=== PATIENT | male | born 1940 | race Caucasian/White ===

== ENCOUNTER 2024-05-04 16:08 | Outpatient (OUT) | payer MEDICARE, SELFPAY ==
--- NOTE | 2024-05-04 16:23 | XR_ITS ---
[facility] [place] [id number] Patient Name: VALENCIA MAGANA MRN: [id number] date: 1940 Sex: M Assigned Patient Location: [facility] Current Patient Location: ED.MAIN Accession/Order Number: [id number] Exam Date: 05/04/2024 16:30 Report Date: 05/04/2024 17:19 At the request of: LARRY LIND Procedure: XR abdomen min 2V EXAM: XR abdomen min 2V REASON FOR EXAM: Male, 83 years, GENERALIZED ABDOMINAL PAIN R10.84. TECHNIQUE: Supine and upright views of the abdomen and pelvis are performed. COMPARISON: None. FINDINGS: The lung bases are clear. There is gaseous distention of large and small bowel. Small bowel diameter measures up to 3.9 cm in diameter. There is a moderate amount of stool within the right and transverse colon. There is no demonstrated free abdominal air. The visualized liver, spleen, and kidneys are grossly normal in size and morphology. Normal soft tissue structures. Normal osseous structures. XR/XR abdomen min 2V IMPRESSION: There is gaseous distention of large and small bowel, suggesting generalized ileus. Moderate stool throughout the colon. Electronically authenticated by: EMMETT CHINCHILLA Date: 05/04/2024 17:19
== END 2024-05-04 16:09 | disposition home or self-care (01) ==
PROVIDERS: Family Provider Physician Assistant; PCP Internal Medicine; Visit Provider Nurse Practitioner Family
DX: R10.84 Generalized abdominal pain (principal); K59.04 Chronic idiopathic constipation
CPT/HCPCS: 74019

== ENCOUNTER 2024-05-04 16:53 | Emergency (ER) | payer MEDICARE, SELFPAY ==
[2024-05-04 17:10] VITALS: BP 108/63; PULSE 103; TEMP 36.9; O2SAT 95; BMI 26.6
--- NOTE | 2024-05-04 17:24 | CT_ITS ---
[address] [address] Patient Name: VALENCIA MAGANA MRN: [id number] date: 1940 Sex: M Assigned Patient Location: ED.MAIN Current Patient Location: Accession/Order Number: [id number] Exam Date: 05/04/2024 19:15 Report Date: 05/04/2024 20:20 At the request of: SARBJIT MONTALVO Procedure: CT abdomen pelvis w con EXAM: CT abdomen pelvis w con REASON FOR EXAM: Male, 83 years, possible SBO. TECHNIQUE: Computed tomography of the abdomen and pelvis is performed in the axial projection from the lung bases to the pubic symphysis. Sagittal and coronal reconstructed images are performed. Dose reduction techniques were achieved by using automated exposure control and/or adjustment of mA and/or KVP according to patient size and/or use of iterative reconstruction technique. A total of 100 mL of Omnipaque 300 IV contrast was given. Study was performed without oral contrast. COMPARISON: Plain films, same date FINDINGS: Lung bases: The lung bases are clear. There is no pleural effusion. Coronary artery calcifications are partially imaged. Liver: There is mild intrahepatic biliary ductal dilation. Gallbladder: The gallbladder is distended. There is gallbladder wall thickening and pericholecystic fluid. The common duct measures 1 cm in diameter. Small gallstones are present. Spleen: The spleen is normal. Pancreas: There is diffuse pancreatic atrophy. Adrenal glands: The adrenal glands are normal bilaterally. Right kidney: The kidney is normal in size. There is a cyst at the superior pole of the right kidney measuring 3.3 cm. Additional smaller cysts are noted. There are punctate nonobstructing renal calculi. No hydronephrosis. Left kidney: The kidney is normal in size. There are punctate nonobstructing renal calculi. Stomach: The stomach is under distended, limiting evaluation for wall abnormalities. Small bowel: The small bowel is normal. Large bowel: There is a moderate amount of stool within the right and transverse colon. There are diverticula in the left colon, without acute diverticulitis. The cecum is directed medially. Appendix: The appendix is not visualized. No right lower quadrant inflammatory changes are seen to suggest acute appendicitis. Aorta: There are diffuse atherosclerotic calcifications of the abdominal aorta. IVC: The IVC is normal. Retroperitoneum: Normal retroperitoneum. Bladder: The bladder is normal. Pelvic organs: Normal prostate gland. Abdominal wall: Normal abdominal wall. Osseous structures: Degenerative changes are seen in the visualized spine. CT/CT abdomen pelvis w con IMPRESSION: Findings are consistent with acute cholecystitis. Diverticulosis, without acute diverticulitis. No bowel obstruction or hydronephrosis. Additional nonacute findings, as described above. Electronically authenticated by: EMMETT CHINCHILLA Date: 05/04/2024 20:20
[2024-05-04] MEDS: ONDANSETRON PF 4 MG/2 ML VIAL IV (17:41)
[2024-05-04] MEDS: MORPHINE SULFATE 4 MG/ML VIAL IV ×2 (17:42→20:13)
[2024-05-04 18:06] LABS: Hematocrit 34.2 % (42.0-54.0); Hemoglobin 10.6 g/dL (14.0-18.0); Mean Corpuscular Hemoglobin 23.4 pg (25.9-34.0); Mean Corpuscular Volume 75.5 fL (80.0-94.0); Platelet Count 157 10^3/uL (150-450); Red Blood Count 4.53 10^6/uL (4.70-6.10); Red Cell Distribution Width 17.8 % (11.0-15.0); White Blood Count 19.4 10^3/uL (4.0-11.0)
[2024-05-04 18:30] LABS: Alanine Aminotransferase 14 U/L (16-63); Albumin Level 3.8 g/dL (3.4-5.0); Alkaline Phosphatase 90 U/L (46-116); Anion Gap 14.1; Aspartate Amino Transferase 12 U/L (15-37); BUN Creatinine Ratio 15.4; Bilirubin Total 1.6 mg/dL (0.2-1.0); Carbon Dioxide 27.9 mmol/L (21.0-32.0); Chloride 99 mmol/L (98-107); Estimated GFR (African America >60 (>=60 mL/min/1.73m^2); Estimated GFR (Non-African Ame >60 (>=60 mL/min/1.73m^2); Globulin 3.7 g/dL; Glucose 147 mg/dL (74-106); Sodium 137 mmol/L (136-145); Total Protein 7.5 g/dL (6.4-8.2)
[2024-05-04 18:36] LABS: Band Neutrophils Absolute 1.2 10^3/uL (0.0-0.3); Lymphocytes Absolute Manual 0.77 10^3/uL (1.20-3.80); Monocytes Absolute Manual 1.94 10^3/uL (0.30-0.80); Ovalocytes 1+; Segmented Neut Absolute Manual 15.52 10^3/uL (1.4-6.5)
--- NOTE | 2024-05-04 18:38 | ED.ABDPAIN1 ---
HPI - Abdominal Pain General Chief Complaint: Abdominal Pain Stated Complaint: abdomen pain Time Seen by Provider: 05/04/24 17:07 Source: patient History of Present Illness HPI narrative: 83-year-old male to the emergency department chief complaint of lower abdominal pain. Started over the last 24 hours. Cramping in nature. It has been unrelenting for the last few hours. He saw his doctor today and an x-ray was ordered. X-ray was reviewed in the outpatient setting was concerning for obstruction so he was sent to the emergency department for evaluation. He reports a small bowel movement yesterday. No bowel movement today. He has not passed any gas today. No history of intra-abdominal surgeries. He has no major medical problems per his report. No blood thinners or antiplatelet agents. Related Data Allergies Allergy/AdvReac Type Severity Reaction Status Date / Time naproxen Allergy Mild swelling Verified 05/04/24 17:21 Penicillins Allergy Mild Rash Verified 05/04/24 17:21 Review of Systems ROS Status of ROS 10 or more systems reviewed and unremarkable except as noted in history and below PFSH PFSH Social History Little interest or pleasure in doing things: not at all Feeling down, depressed, or hopeless: not at all Exam Narrative Exam Narrative: VITALS: I have reviewed the triage vital signs. GENERAL: Uncomfortable adult male holding lower abdomen NEURO: Alert and oriented. Moves all extremities. Face is symmetric and expressive. EYES: PERRL. No scleral icterus or conjunctival injection. No discharge. HENT: Normocephalic, atraumatic. Hearing is grossly intact. Nares grossly patent and without discharge. Mucous membranes moist. NECK: No JVD. Patient moves neck without restriction. CARDIO: Rhythm regular. Normal rate. No murmur, rub, or gallop. Pulses equal bilaterally in the upper and lower extremity. No lower extremity edema. PULM: Lungs clear to auscultation in all beyer. No wheezes, rales, or rhonchi. No conversational dyspnea. No splinting, stridor, or accessory muscle use. GI/: Abdomen is mildly distended. Tenderness across the lower abdomen. Normoactive bowel sounds. EXTREMITIES: Symmetric muscle bulk. No joint swelling. No clubbing, cyanosis, or deformity. SKIN: Warm and dry. Normal turgor. No rash or lesions appreciated. PSYCH: Mood, affect, and interaction is appropriate to the setting. Constitutional Vital Signs, click to edit/add: Last Vital Signs Temp 98.4 F 05/04/24 17:10 Pulse 103 H 05/04/24 17:10 Resp 18 05/04/24 17:10 BP 108/63 05/04/24 17:10 Pulse Ox 95 05/04/24 17:10 O2 Del Method Room Air 05/04/24 17:10 Course Vital Signs Vital signs: Vital Signs Temperature 98.4 F 05/04/24 17:10 Pulse Rate 103 H 05/04/24 17:10 Respiratory Rate 18 05/04/24 17:10 Blood Pressure 108/63 05/04/24 17:10 Pulse Oximetry 95 05/04/24 17:10 Oxygen Delivery Method Room Air 05/04/24 17:10 Temperature 98.4 F 05/04/24 17:10 Pulse Rate 103 H 05/04/24 17:10 Respiratory Rate 18 05/04/24 17:10 Blood Pressure 108/63 05/04/24 17:10 Pulse Oximetry 95 05/04/24 17:10 Oxygen Delivery Method Room Air 05/04/24 17:10 MDM - Abdominal Pain MDM Narrative Medical decision making narrative: 83-year-old male to the emergency department with chief complaint of abdominal pain with concerning x-ray in the outpatient setting. Vital stable, the patient is afebrile. He is significantly tender on exam. Morphine and Zofran for symptoms. Basic labs, lactate, CT scan are ordered. Patient agrees with this plan. Care was signed out to Dr. Christopher with results of diagnostic workup and disposition pending. Diagnosis: Abdominal pain Medical Records Attestation: I reviewed the patient's medical records. Lab Data Attestation: I reviewed the patient's lab results. Labs: Lab Results 05/04/24 Range/Units 17:35 WBC 19.4 H (4.0-11.0) 10^3/uL RBC 4.53 L (4.70-6.10) 10^6/uL Hgb 10.6 L (14.0-18.0) g/dL Hct 34.2 L (42.0-54.0) % MCV 75.5 L (80.0-94.0) fL MCH 23.4 L (25.9-34.0) pg MCHC 31.0 (29.9-35.2) g/dL RDW 17.8 H (11.0-15.0) % Plt Count 157 (150-450) 10^3/uL Seg Neuts % (Manual) 80.0 H (43.0-75.0) Band Neutrophils % 6.0 H (0-5) % Lymphocytes % (Manual) 4.0 L (20.5-60.0) % Monocytes % (Manual) 10.0 (1.7-12.0) % Eosinophils % (Manual) 0.0 L (0.9-7.0) % Basophils % (Manual) 0.0 L (0.2-2.0) % Neutrophils # (Manual) 15.52 H (1.4-6.5) 10^3/uL Band Neutrophils # 1.2 H (0.0-0.3) 10^3/uL Lymphocytes # (Manual) 0.77 L (1.20-3.80) 10^3/uL Monocytes # (Manual) 1.94 H (0.30-0.80) 10^3/uL Eosinophils # (Manual) 0.00 (0.00-0.70) 10^3/uL Basophils # (Manual) 0.00 (0.00-0.10) 10^3/uL Ovalocytes 1+ Discharge Plan Discharge Chief Complaint: Abdominal Pain Clinical Impression: Abdominal pain Patient Disposition: Still a Patient Print Language: Danish Referrals: MOISES THOMAS [Primary Care Provider] - 1 week
[2024-05-04 18:40] LABS: Lactate/Lactic Acid 2.1 mmol/L (0.4-2.0)
--- NOTE | 2024-05-04 19:49 | ED.ABDPAIN1 ---
HPI - Abdominal Pain General Chief Complaint: Abdominal Pain Stated Complaint: abdomen pain Time Seen by Provider: 05/04/24 17:07 Source: patient History of Present Illness HPI narrative: This 83-year-old male with signed out to me at shift change pending CT scan and reevaluation. He presents for evaluation of abdominal pain. He complains mostly of lower abdominal pain with decreased flatus and bowel movements. He has not had any diarrhea. I did review his CT scan looks like his gallbladder is dilated. On reevaluation he is tender in the right upper quadrant. He is not having any nausea or vomiting. His white count is elevated at 19.4 with an elevated lactic at 2.1. LFTs are normal, total bilirubin is mildly elevated at 1.6. Lipase is normal. The patient was medicated with Dilaudid and on reevaluation his pain is still a 6 out of 10. He will be remedicated with a dose of morphine while we are awaiting CT scan. He requested to use the bathroom and a urinalysis was also added. While we are waiting for the CT results I ordered an ultrasound of the right upper quadrant. CT scan shows mild intrahepatic biliary ductal dilatation with distended gallbladder with gallbladder wall thickening and pericholecystic fluid common bile duct measuring 1 cm in diameter with small gallstones present. Findings are consistent with acute cholecystitis. There is also diverticulosis without acute diverticulitis. This was discussed with Dr. Montalvo at [facility] who has agreed to accept the patient for transfer. He requested antibiotics. The patient is penicillin allergic and imipenem was ordered. Results of labs and CT findings were discussed with the patient and family and they are agreeable to the transfer Related Data Allergies Allergy/AdvReac Type Severity Reaction Status Date / Time naproxen Allergy Mild swelling Verified 05/04/24 17:21 Penicillins Allergy Mild Rash Verified 05/04/24 17:21 PFSH PFSH Social History Little interest or pleasure in doing things: not at all Feeling down, depressed, or hopeless: not at all Exam Constitutional Vital Signs, click to edit/add: Last Vital Signs Temp 98.4 F 05/04/24 17:10 Pulse 103 H 05/04/24 17:10 Resp 18 05/04/24 17:10 BP 108/63 05/04/24 17:10 Pulse Ox 95 05/04/24 17:10 O2 Del Method Room Air 05/04/24 17:10 Course Vital Signs Vital signs: Vital Signs Temperature 98.4 F 05/04/24 17:10 Pulse Rate 103 H 05/04/24 17:10 Respiratory Rate 18 05/04/24 17:10 Blood Pressure 108/63 05/04/24 17:10 Pulse Oximetry 95 05/04/24 17:10 Oxygen Delivery Method Room Air 05/04/24 17:10 Temperature 98.4 F 05/04/24 17:10 Pulse Rate 103 H 05/04/24 17:10 Respiratory Rate 18 05/04/24 17:10 Blood Pressure 108/63 05/04/24 17:10 Pulse Oximetry 95 05/04/24 17:10 Oxygen Delivery Method Room Air 05/04/24 17:10 MDM - Abdominal Pain Medical Records Medical records narrative: [place] [address] CT Scan Report Signed Patient: VALENCIA MAGANA MR#: [id number] : 1940 Acct:[id number] Age/Sex: 83 / M ADM Date: 05/04/24 Loc: ER Attending Dr: Ordering Physician: Sarbjit Bertrand Date of Service: 05/04/24 Procedure(s): CT abdomen pelvis w con Accession Number(s): [id number] cc: MOISES THOMAS ~ [facility] [place] [id number] Patient Name: VALENCIA MAGANA MRN: [id number] date: 1940 Sex: M Assigned Patient Location: ED.MAIN Current Patient Location: ER Accession/Order Number: [id number] Exam Date: 05/04/2024 19:15 Report Date: 05/04/2024 20:20 At the request of: SARBJIT BERTRAND Procedure: CT abdomen pelvis w con EXAM: CT abdomen pelvis w con REASON FOR EXAM: Male, 83 years, possible SBO. TECHNIQUE: Computed tomography of the abdomen and pelvis is performed in the axial projection from the lung bases to the pubic symphysis. Sagittal and coronal reconstructed images are performed. Dose reduction techniques were achieved by using automated exposure control and/or adjustment of mA and/or KVP according to patient size and/or use of iterative reconstruction technique. A total of 100 mL of Omnipaque 300 IV contrast was given. Study was performed without oral contrast. COMPARISON: Plain films, same date FINDINGS: Lung bases: The lung bases are clear. There is no pleural effusion. Coronary artery calcifications are partially imaged. Liver: There is mild intrahepatic biliary ductal dilation. Gallbladder: The gallbladder is distended. There is gallbladder wall thickening and pericholecystic fluid. The common duct measures 1 cm in diameter. Small gallstones are present. Spleen: The spleen is normal. Pancreas: There is diffuse pancreatic atrophy. Adrenal glands: The adrenal glands are normal bilaterally. Right kidney: The kidney is normal in size. There is a cyst at the superior pole of the right kidney measuring 3.3 cm. Additional smaller cysts are noted. There are punctate nonobstructing renal calculi. No hydronephrosis. Left kidney: The kidney is normal in size. There are punctate nonobstructing renal calculi. Stomach: The stomach is under distended, limiting evaluation for wall abnormalities. Small bowel: The small bowel is normal. Large bowel: There is a moderate amount of stool within the right and transverse colon. There are diverticula in the left colon, without acute diverticulitis. The cecum is directed medially. Appendix: The appendix is not visualized. No right lower quadrant inflammatory changes are seen to suggest acute appendicitis. Aorta: There are diffuse atherosclerotic calcifications of the abdominal aorta. IVC: The IVC is normal. Retroperitoneum: Normal retroperitoneum. Bladder: The bladder is normal. Pelvic organs: Normal prostate gland. Abdominal wall: Normal abdominal wall. Osseous structures: Degenerative changes are seen in the visualized spine. CT/CT abdomen pelvis w con IMPRESSION: Findings are consistent with acute cholecystitis. Diverticulosis, without acute diverticulitis. No bowel obstruction or hydronephrosis. Additional nonacute findings, as described above. Electronically authenticated by: EMMETT CHINCHILLA Date: 05/04/2024 20:20 Lab Data Labs: Lab Results 05/04/24 05/04/24 Range/Units 17:35 20:06 WBC 19.4 H (4.0-11.0) 10^3/uL RBC 4.53 L (4.70-6.10) 10^6/uL Hgb 10.6 L (14.0-18.0) g/dL Hct 34.2 L (42.0-54.0) % MCV 75.5 L (80.0-94.0) fL MCH 23.4 L (25.9-34.0) pg MCHC 31.0 (29.9-35.2) g/dL RDW 17.8 H (11.0-15.0) % Plt Count 157 (150-450) 10^3/uL Seg Neuts % (Manual) 80.0 H (43.0-75.0) Band Neutrophils % 6.0 H (0-5) % Lymphocytes % (Manual) 4.0 L (20.5-60.0) % Monocytes % (Manual) 10.0 (1.7-12.0) % Eosinophils % (Manual) 0.0 L (0.9-7.0) % Basophils % (Manual) 0.0 L (0.2-2.0) % Neutrophils # (Manual) 15.52 H (1.4-6.5) 10^3/uL Band Neutrophils # 1.2 H (0.0-0.3) 10^3/uL Lymphocytes # (Manual) 0.77 L (1.20-3.80) 10^3/uL Monocytes # (Manual) 1.94 H (0.30-0.80) 10^3/uL Eosinophils # (Manual) 0.00 (0.00-0.70) 10^3/uL Basophils # (Manual) 0.00 (0.00-0.10) 10^3/uL Ovalocytes 1+ Sodium 137 (136-145) mmol/L Potassium 4.0 (3.5-5.1) mmol/L Chloride 99 (98-107) mmol/L Carbon Dioxide 27.9 (21.0-32.0) mmol/L Anion Gap 14.1 BUN 16.0 (7.0-18.0) mg/dL Creatinine 1.04 (0.70-1.30) mg/dL Est GFR ( Amer) >60 (>=60 mL/min/1.73m^2) Est GFR (Non-Af Amer) >60 (>=60 mL/min/1.73m^2) BUN/Creatinine Ratio 15.4 Glucose 147 H (74-106) mg/dL Lactate 2.1 H (0.4-2.0) mmol/L Calcium 9.0 (8.5-10.1) mg/dL Total Bilirubin 1.6 H (0.2-1.0) mg/dL AST 12 L (15-37) U/L ALT 14 L (16-63) U/L Alkaline Phosphatase 90 (46-116) U/L Total Protein 7.5 (6.4-8.2) g/dL Albumin 3.8 (3.4-5.0) g/dL Globulin 3.7 g/dL Albumin/Globulin Ratio 1.0 Lipase 14.0 L (16.0-77.0) U/L Urine Color Yellow (YELLOW) Urine Clarity Clear (CLEAR) Urine pH 7.5 (5.0-9.0) Ur Specific [place] 1.010 (1.005-1.025) Urine Protein Trace (NEG/TRACE) mg/dL Urine Glucose (UA) Negative (NEGATIVE) mg/dL Urine Ketones Negative (NEGATIVE) mg/dL Urine Occult Blood Negative (NEGATIVE) Urine Nitrite Negative (NEGATIVE) Urine Bilirubin Negative (NEGATIVE) Urine Urobilinogen 1.0 (0.2-1.0) EU/dL Ur Leukocyte Esterase Negative (NEGATIVE) Urine RBC 0-2 (0-2) #/HPF Urine WBC 0-2 A (NONE SEEN) #/HPF Ur Squamous Epith Cells Rare (NONE/RARE) #/LPF Urine Crystals None seen (None Seen) #/HPF Urine Bacteria None seen (NONE SEEN) #/HPF Urine Casts None seen (NONE SEEN) #/LPF Urine Mucus None seen (NONE SEEN) Discharge Plan Discharge Chief Complaint: Abdominal Pain Clinical Impression: Abdominal pain, Acute cholecystitis Patient Disposition: [facility] Time of Disposition Decision: 20:54 Condition: Good Mode of Transportation: EMS
[2024-05-04 20:11] LABS: Bilirubin Urine NEGATIVE (NEGATIVE); Blood Urine NEGATIVE (NEGATIVE); Clarity Urine CLEAR (CLEAR); Color Urine YELLOW (YELLOW); Glucose Urine UA NEGATIVE (NEGATIVE); Ketones Urine NEGATIVE (NEGATIVE); Leukocyte Esterase Urine NEGATIVE (NEGATIVE); Nitrite Urine NEGATIVE (NEGATIVE); Protein Urine TRACE mg/dL (NEG/TRACE); pH Urine 7.5 (5.0-9.0)
--- NOTE | 2024-05-04 20:15 | US_ITS ---
The [address] [address] Patient Name: VALENCIA MAGANA MRN: [id number] date: 1940 Sex: M Assigned Patient Location: ER Current Patient Location: ER Accession/Order Number: [id number] Exam Date: 05/04/2024 20:20 Report Date: 05/04/2024 22:27 At the request of: MIKEL MARKER Procedure: US right upper quadrant EXAMINATION: US right upper quadrant TECHNIQUE: Limited ultrasound of the abdomen was performed. Grayscale and color flow Doppler imaging. HISTORY: RUQ abd pain. COMPARISON: CT scan 05/04/2024 FINDINGS: Liver: The liver demonstrates normal homogeneous echotexture and normal size. Gallbladder/biliary: Gallbladder is distended with wall thickening and multiple echogenic shadowing stones. Gallbladder is distended up to 10.6 cm in length. The common extrahepatic duct diameter measures 7mm. There is no intra or extrahepatic biliary dilatation. There is no visualized obstructing biliary stone. Pancreas: Not visualized due to overlying bowel gas Right Kidney: A couple small anechoic cysts are seen of the right kidney. Other findings: Patient was mildly tender while scanning over the gallbladder. US/US right upper quadrant IMPRESSION: Findings suggesting acute cholecystitis. Electronically authenticated by: GLORIA LAZARO Date: 05/04/2024 22:27
[2024-05-04 20:23] LABS: RBC Urine 0-2 #/HPF (0-2); WBC Urine 0-2 #/HPF (NONE SEEN)
[2024-05-04 20:24] LABS: Bacteria Urine NONE SEEN #/HPF (NONE SEEN); Cast Seen? NONE SEEN #/LPF (NONE SEEN); Crystals Seen? None Seen #/HPF (None Seen); Mucus Urine NONE SEEN (NONE SEEN); Squamous Epithelial Cell Urine RARE #/LPF (NONE/RARE)
[2024-05-04] MEDS: ERTAPENEM SODIUM 1 GM in 0.9 % SODIUM CHLORIDE 50 ML IV (21:13)
[2024-05-04] MEDS: 0.9 % SODIUM CHLORIDE 1,000 ML 125 ML IV (21:16)
[2024-05-04 21:40] LABS: Lactate/Lactic Acid 1.9 mmol/L (0.4-2.0)
[2024-05-04] MEDS: HYDROMORPHONE HCL 1 MG/ML CARTRIDGE IV (22:21)
[2024-05-04 22:33] VITALS: BP 109/78; PULSE 87; O2SAT 94
== END 2024-05-04 23:35 | disposition short-term general hospital (02) ==
PROVIDERS: Student in an Organized Health Care Education/Training Program; Emergency Provider Emergency Medicine; Family Provider Physician Assistant; PCP Internal Medicine
DX: K81.0 Acute cholecystitis (principal); K57.30 Diverticulosis of large intestine without perforation or abscess without bleeding; R10.84 Generalized abdominal pain; K59.04 Chronic idiopathic constipation
CPT/HCPCS: 36415; 74019; 74177; 76705; 80053; 81001; 83605; 83690; 85007; 85027; 96365; 96375; 96376; 99285; J1171; J1335; J2270; J2405; Q9967

== ENCOUNTER 2024-05-21 05:43 | Emergency (ER) | payer MEDICARE, SELFPAY ==
[2024-05-21] VITALS (35 sets, daily range): BP systolic 108–128; BP diastolic 53–67; PULSE 75–97; TEMP 36.9; O2SAT 87–100; BMI 26.4
--- NOTE | 2024-05-21 06:04 | ECG_ITS ---
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
--- NOTE | 2024-05-21 06:06 | ED.ABDPAIN1 ---
Documented by User: Jessica Christopher MD 05/21/24 06:22 HPI - Abdominal Pain General Chief Complaint: Abdominal Pain Stated Complaint: POST SURGICAL PAIN Time Seen by Provider: 05/21/24 05:50 Source: patient Mode of arrival: walk-in Limitations: no limitations History of Present Illness HPI narrative: This 83-year-old male who is status post laparoscopic cholecystectomy at [facility] on May 05 after being seen in this emergency department and transferred presents for evaluation of upper and lower abdominal pain as well as a syncopal event. The patient is here with his significant other. The patient was in the bathroom urinating this morning when he suddenly became nauseated and passed out and pulled the towel rack above the toilet down on top of him. He was briefly unresponsive and then responded normally again. He has a small abrasion on his head. He is also having epigastric abdominal pain where he has a laparoscopic incision and some lower abdominal pain. He did have a KELVIN drain that was removed on Wednesday. He has been intermittently constipated and having diarrhea. He had an additional episode of syncope earlier in the week when he was using the bathroom as well. The patient states at that time the bathroom was very hot and he became nauseated and passed out. He has no headache, neck pain, focal neurologic weakness numbness or tingling. Related Data Home Medications ?Medication ?Instructions ?Recorded ?Confirmed latanoprost 0.005 % eye drops 1 drp ophthalmic (eye) DAILY 05/21/24 05/21/24 levothyroxine 137 mcg tablet 137 mcg PO DAILY 05/21/24 05/21/24 omeprazole 40 mg capsule,delayed 40 mg PO DAILY 05/21/24 05/21/24 release Allergies Allergy/AdvReac Type Severity Reaction Status Date / Time naproxen Allergy Mild swelling Verified 05/21/24 05:57 Penicillins Allergy Mild Rash Verified 05/21/24 05:57 Review of Systems ROS Status of ROS 10 or more systems reviewed and unremarkable except as noted in history and below PFSH PFSH Social History Little interest or pleasure in doing things: not at all Feeling down, depressed, or hopeless: not at all Exam Narrative Exam Narrative: Vital signs and Nursing Notes reviewed: Patient is afebrile with a normal pulse, blood pressure is moderately low at 110/59, he is not hypoxic with pulse ox of 96% on room air General: Awake, alert, oriented, no acute distress, lying comfortably on the stretcher-GCS 15 HEENT: Normocephalic atraumatic, mucous membranes are moist and pink, eyes are clear, normal conjunctiva, vision is grossly intact, no scleral icterus noted Neck: Supple, no meningeal signs, no posterior cervical neck tenderness or step-off Chest: Lungs are clear to auscultation with good air entry, there is no wheezing rhonchi or rales appreciated no accessory muscle use, patient is speaking in complete sentences-no chest wall tenderness to palpation CVS: Regular rate and rhythm S1-S2, no murmurs rubs or gallops, pulses are brisk and equal bilaterally ABD: Softly distended with decreased bowel sounds, there is tenderness to palpation over the laparoscopic incision site in the epigastrium. Other laparoscopic incision sites appear clean dry and intact. There are some mild tenderness in the left lower quadrant of the abdomen without rebound guarding or rigidity. Extremities: Moving all extremities, no lower extremity tenderness or swelling noted, negative Homans' sign, pulses are brisk and equal bilaterally Skin: Normal in appearance without rash,pallor, petechiae or purpura Neuro: No focal deficits, speech is clear, there is no facial droop, upper and lower extremity strength and sensation is intact, cognition is clear Constitutional Vital Signs, click to edit/add: Last Vital Signs Temp 98.4 F 05/21/24 05:50 Pulse 91 H 05/21/24 08:45 Resp 19 05/21/24 08:45 BP 122/58 05/21/24 08:30 Pulse Ox 96 05/21/24 08:58 O2 Del Method Nasal Cannula 05/21/24 08:58 Course Vital Signs Vital signs: Vital Signs Temperature 98.4 F 05/21/24 05:50 Pulse Rate 89 05/21/24 05:50 Respiratory Rate 16 05/21/24 05:50 Blood Pressure 110/59 05/21/24 05:50 Pulse Oximetry 96 05/21/24 05:50 Oxygen Delivery Method Room Air 05/21/24 05:50 Temperature 98.4 F 05/21/24 05:50 Pulse Rate 91 H 05/21/24 08:45 Respiratory Rate 19 05/21/24 08:45 Blood Pressure 122/58 05/21/24 08:30 Pulse Oximetry 96 05/21/24 08:58 Oxygen Delivery Method Nasal Cannula 05/21/24 08:58 MDM - Abdominal Pain Medical Records Attestation: I reviewed the patient's medical records. Lab Data Labs: Lab Results 05/21/24 05/21/24 Range/Units 06:00 08:47 WBC 13.2 H (4.0-11.0) 10^3/uL RBC 3.67 L (4.70-6.10) 10^6/uL Hgb 8.3 L (14.0-18.0) g/dL Hct 28.1 L (42.0-54.0) % MCV 76.6 L (80.0-94.0) fL MCH 22.6 L (25.9-34.0) pg MCHC 29.5 L (29.9-35.2) g/dL RDW 18.2 H (11.0-15.0) % Plt Count 312 (150-450) 10^3/uL MPV 10.3 (9.5-13.5) fL Seg Neuts % (Manual) 91.0 H (43.0-75.0) Lymphocytes % (Manual) 2.0 L (20.5-60.0) % Monocytes % (Manual) 7.0 (1.7-12.0) % Eosinophils % (Manual) 0.0 L (0.9-7.0) % Basophils % (Manual) 0.0 L (0.2-2.0) % Neutrophils # (Manual) 12.01 H (1.4-6.5) 10^3/uL Lymphocytes # (Manual) 0.26 L (1.20-3.80) 10^3/uL Monocytes # (Manual) 0.92 H (0.30-0.80) 10^3/uL Eosinophils # (Manual) 0.00 (0.00-0.70) 10^3/uL Basophils # (Manual) 0.00 (0.00-0.10) 10^3/uL Sodium 135 L (136-145) mmol/L Potassium 3.4 L (3.5-5.1) mmol/L Chloride 99 (98-107) mmol/L Carbon Dioxide 28.8 (21.0-32.0) mmol/L Anion Gap 10.6 BUN 13.0 (7.0-18.0) mg/dL Creatinine 1.02 (0.70-1.30) mg/dL Est GFR ( Amer) >60 (>=60 mL/min/1.73m^2) Est GFR (Non-Af Amer) >60 (>=60 mL/min/1.73m^2) BUN/Creatinine Ratio 12.7 Glucose 154 H (74-106) mg/dL Lactate 2.0 1.4 (0.4-2.0) mmol/L Calcium 8.4 L (8.5-10.1) mg/dL Total Bilirubin 1.3 H (0.2-1.0) mg/dL AST 386 H (15-37) U/L ALT 206 H (16-63) U/L Alkaline Phosphatase 538 H (46-116) U/L Troponin I High Sens 5.9 (4.0-76.1) pg/mL Total Protein 6.6 (6.4-8.2) g/dL Albumin 2.5 L (3.4-5.0) g/dL Globulin 4.1 g/dL Albumin/Globulin Ratio 0.6 Lipase 25.0 (16.0-77.0) U/L ECG Data Attestation: I personally reviewed and interpreted this ECG as follows: (Sinus 83 bpm, low voltage, normal axis, normal intervals, no acute ST segment elevation or T wave inversion) Discharge Plan Discharge Chief Complaint: Abdominal Pain Clinical Impression: Postoperative abdominal pain, Syncope, Postoperative abscess Patient Disposition: [facility] Time of Disposition Decision: 11:18 Discharge location: [facility] Documented by User: Tiffany Chu MD 05/21/24 11:18 HPI - Abdominal Pain General Chief Complaint: Abdominal Pain Stated Complaint: POST SURGICAL PAIN Time Seen by Provider: 05/21/24 05:50 Related Data Home Medications ?Medication ?Instructions ?Recorded ?Confirmed latanoprost 0.005 % eye drops 1 drp ophthalmic (eye) DAILY 05/21/24 05/21/24 levothyroxine 137 mcg tablet 137 mcg PO DAILY 05/21/24 05/21/24 omeprazole 40 mg capsule,delayed 40 mg PO DAILY 05/21/24 05/21/24 release Allergies Allergy/AdvReac Type Severity Reaction Status Date / Time naproxen Allergy Mild swelling Verified 05/21/24 05:57 Penicillins Allergy Mild Rash Verified 05/21/24 05:57 PFSH PFSH Social History Little interest or pleasure in doing things: not at all Feeling down, depressed, or hopeless: not at all Exam Constitutional Vital Signs, click to edit/add: Last Vital Signs Temp 98.4 F 05/21/24 05:50 Pulse 91 H 05/21/24 08:45 Resp 19 05/21/24 08:45 BP 122/58 05/21/24 08:30 Pulse Ox 96 05/21/24 08:58 O2 Del Method Nasal Cannula 05/21/24 08:58 Course Vital Signs Vital signs: Vital Signs Temperature 98.4 F 05/21/24 05:50 Pulse Rate 89 05/21/24 05:50 Respiratory Rate 16 05/21/24 05:50 Blood Pressure 110/59 05/21/24 05:50 Pulse Oximetry 96 05/21/24 05:50 Oxygen Delivery Method Room Air 05/21/24 05:50 Temperature 98.4 F 05/21/24 05:50 Pulse Rate 91 H 05/21/24 08:45 Respiratory Rate 19 05/21/24 08:45 Blood Pressure 122/58 05/21/24 08:30 Pulse Oximetry 96 05/21/24 08:58 Oxygen Delivery Method Nasal Cannula 05/21/24 08:58 MDM - Abdominal Pain MDM Narrative Medical decision making narrative: The [facility]: CBC shows leukocytosis of 15 and lactic acid 1[address]4 [address] head as well as CT cervical spine showed no acute pathology The patient syncopal episodes mostly secondary to vasovagal It was noted that the patient was in pain and I gave him morphine for pain The patient CT abdomen pelvis showed the possibility of abscess at the cholecystectomy site, I discussed the case with general surgery and Shiva Box and the recommended the patient to be transferred to [facility] for interventional radiology The patient had a blood culture obtained started on meropenem as a antibiotic treatment The patient case was discussed with Dr. Christine in medicine and he requested the patient to be discussed with Dr. Rivas from general surgery who requested the patient to be transferred to the ED in [facility] for further evaluation Lab Data Labs: Lab Results 05/21/24 05/21/24 Range/Units 06:00 08:47 WBC 13.2 H (4.0-11.0) 10^3/uL RBC 3.67 L (4.70-6.10) 10^6/uL Hgb 8.3 L (14.0-18.0) g/dL Hct 28.1 L (42.0-54.0) % MCV 76.6 L (80.0-94.0) fL MCH 22.6 L (25.9-34.0) pg MCHC 29.5 L (29.9-35.2) g/dL RDW 18.2 H (11.0-15.0) % Plt Count 312 (150-450) 10^3/uL MPV 10.3 (9.5-13.5) fL Seg Neuts % (Manual) 91.0 H (43.0-75.0) Lymphocytes % (Manual) 2.0 L (20.5-60.0) % Monocytes % (Manual) 7.0 (1.7-12.0) % Eosinophils % (Manual) 0.0 L (0.9-7.0) % Basophils % (Manual) 0.0 L (0.2-2.0) % Neutrophils # (Manual) 12.01 H (1.4-6.5) 10^3/uL Lymphocytes # (Manual) 0.26 L (1.20-3.80) 10^3/uL Monocytes # (Manual) 0.92 H (0.30-0.80) 10^3/uL Eosinophils # (Manual) 0.00 (0.00-0.70) 10^3/uL Basophils # (Manual) 0.00 (0.00-0.10) 10^3/uL Sodium 135 L (136-145) mmol/L Potassium 3.4 L (3.5-5.1) mmol/L Chloride 99 (98-107) mmol/L Carbon Dioxide 28.8 (21.0-32.0) mmol/L Anion Gap 10.6 BUN 13.0 (7.0-18.0) mg/dL Creatinine 1.02 (0.70-1.30) mg/dL Est GFR ( Amer) >60 (>=60 mL/min/1.73m^2) Est GFR (Non-Af Amer) >60 (>=60 mL/min/1.73m^2) BUN/Creatinine Ratio 12.7 Glucose 154 H (74-106) mg/dL Lactate 2.0 1.4 (0.4-2.0) mmol/L Calcium 8.4 L (8.5-10.1) mg/dL Total Bilirubin 1.3 H (0.2-1.0) mg/dL AST 386 H (15-37) U/L ALT 206 H (16-63) U/L Alkaline Phosphatase 538 H (46-116) U/L Troponin I High Sens 5.9 (4.0-76.1) pg/mL Total Protein 6.6 (6.4-8.2) g/dL Albumin 2.5 L (3.4-5.0) g/dL Globulin 4.1 g/dL Albumin/Globulin Ratio 0.6 Lipase 25.0 (16.0-77.0) U/L Discharge Plan Discharge Chief Complaint: Abdominal Pain Clinical Impression: Postoperative abdominal pain, Syncope, Postoperative abscess Patient Disposition: [facility] Time of Disposition Decision: 11:18 Discharge location: [facility]
--- NOTE | 2024-05-21 06:14 | CT_ITS ---
The [address] [address] Patient Name: VALENCIA MAGANA MRN: [id number] date: 1940 Sex: M Assigned Patient Location: ER Current Patient Location: Accession/Order Number: [id number] Exam Date: 05/21/2024 07:18 Report Date: 05/21/2024 07:53 At the request of: MIKEL MARKER Procedure: CT abdomen pelvis w con EXAM: CT scan of the abdomen and pelvis using 100 mL of IV iodinated contrast. Dose reduction technique used: Automated exposure control and/or adjustment of the mA and/or kV according to patient size and/or use of iterative reconstruction technique. REASON FOR EXAM: post op abd pain, syncope COMPARISON: CT scan dated 05/04/2024 FINDINGS: Changes of recent cholecystectomy. Collection of fluid and gas with peripheral enhancement in the gallbladder fossa measuring 8.9 x 5.9 x 6.0 cm. Surrounding fat stranding. Small tract of fluid and gas along the course of what was likely a prior right upper quadrant surgical drain. Periportal edema. Tiny amount of free intraperitoneal air. Colonic diverticulosis. Right renal cyst. Minimal grade 1 anterolisthesis of L4 on L5. Small right pleural effusion. Normal appendix. No free fluid in the abdomen or pelvis. No free intraperitoneal air. No dilated or thickened loops of small bowel or colon. No hydronephrosis or obstructing renal or ureteral calculi. Liver, pancreas, spleen, bilateral kidneys, and bilateral adrenal glands are otherwise unremarkable. No lymphadenopathy in the abdomen or pelvis. Remainder unremarkable. CT/CT abdomen pelvis w con IMPRESSION: 1. Large probable abscess in the gallbladder fossa. 2. Tiny amount of free intraperitoneal air is likely related to the recent surgery. Electronically authenticated by: ADRIAN BRENNAN Date: 05/21/2024 07:53
--- NOTE | 2024-05-21 06:19 | CT_ITS ---
The [address] [address] Patient Name: VALENCIA MAGANA MRN: [id number] date: 1940 Sex: M Assigned Patient Location: ED.MAIN Current Patient Location: ED.MAIN Accession/Order Number: [id number] Exam Date: 05/21/2024 07:18 Report Date: 05/21/2024 11:17 At the request of: MIKEL MINAYA Procedure: CT head/brain wo con EXAM: CT head/brain wo con, CT cervical spine wo con 05/21/2024 HISTORY: Syncope. COMPARISON: None. CT HEAD TECHNIQUE: 3 mm sections were obtained through the head without the use of contrast. Coronal and sagittal reconstructed images were obtained. CT CERVICAL SPINE TECHNIQUE: 2 mm sections were obtained from the skull base through the upper thoracic spine without the use of contrast. Coronal and sagittal reconstructed images were obtained. 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 The middle ear cavities and left-sided mastoid air cells are clear. There is minor mucosal thickening associated with several of the paranasal sinuses. No acute calvarial fracture noted. The upper parapharyngeal fat planes are grossly intact. No acute intraorbital process suggested. 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 Mild background cerebral and cerebellar atrophic changes are noted. Ventricular and cisternal spaces are within normal limits. There is no hemorrhage, midline shift or dominant mass lesion. Cardona to white matter differentiation is otherwise intact. Mild background ventricular prominence is commensurate with degree of atrophy. CT CERVICAL SPINE: Degenerative narrowing of the predental space with associated sclerosis and osteophytosis noted. The alignment is satisfactory. Spondylitic changes are noted at C5-C6. Ankylosis of facet articulations at C2-C3 level noted. Overall cervical spinal pedicles are short. C1 ring is intact. At C2-C3, bilateral facet arthritic changes noted. No critical canal stenosis. Mild posterior ligamentous hypertrophic changes noted. At C3-C4 mild right-sided uncovertebral arthritic change noted. Bilateral facet disease, right greater than left is moderate in severity. No critical canal stenosis. Mild right-sided foraminal encroachment. At C4-C5 mild bilateral uncovertebral arthritic and facet arthritic changes are noted. Small central disc protrusion with mild posterior endplate spurring without critical canal stenosis noted. At C5-C6 posterior disc osteophyte formation with no significant canal stenosis noted. Mild bilateral uncovertebral arthritic and facet arthritic changes with mild bilateral foraminal encroachment. At C6-C7 and C7-T1 there is no significant canal stenosis or foraminal stenosis. 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 No acute abnormality at the pulmonary apices. Thyroid is quite atrophic. Prevertebral soft tissues demonstrate no acute abnormality. CT/CT head/brain wo con IMPRESSION: CT HEAD: 1. Mild background cerebral/cerebellar atrophic changes are identified. No acute intracranial process. 2. Negative for intracranial hemorrhage or acute calvarial fracture. CT CERVICAL SPINE: 1. No acute cervical spinal fracture or subluxation. 2. Mild spondylitic changes at C5-C6 with mild associated canal stenosis. 3. Bilateral uncovertebral arthritic and facet arthritic changes as described. There is ankylosis of facet articulations at C2-C3. 4. 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 Electronically authenticated by: PRIMITIVO PHAN Date: 05/21/2024 11:17
--- NOTE | 2024-05-21 06:19 | CT_ITS ---
The [address] [address] Patient Name: VALENCIA MAGANA MRN: [id number] date: 1940 Sex: M Assigned Patient Location: ED.MAIN Current Patient Location: ED.MAIN Accession/Order Number: [id number] Exam Date: 05/21/2024 07:18 Report Date: 05/21/2024 11:17 At the request of: MIKEL MARKER Procedure: CT cervical spine wo con EXAM: CT head/brain wo con, CT cervical spine wo con 05/21/2024 HISTORY: Syncope. COMPARISON: None. CT HEAD TECHNIQUE: 3 mm sections were obtained through the head without the use of contrast. Coronal and sagittal reconstructed images were obtained. CT CERVICAL SPINE TECHNIQUE: 2 mm sections were obtained from the skull base through the upper thoracic spine without the use of contrast. Coronal and sagittal reconstructed images were obtained. 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 The middle ear cavities and left-sided mastoid air cells are clear. There is minor mucosal thickening associated with several of the paranasal sinuses. No acute calvarial fracture noted. The upper parapharyngeal fat planes are grossly intact. No acute intraorbital process suggested. 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 Mild background cerebral and cerebellar atrophic changes are noted. Ventricular and cisternal spaces are within normal limits. There is no hemorrhage, midline shift or dominant mass lesion. Cardona to white matter differentiation is otherwise intact. Mild background ventricular prominence is commensurate with degree of atrophy. CT CERVICAL SPINE: Degenerative narrowing of the predental space with associated sclerosis and osteophytosis noted. The alignment is satisfactory. Spondylitic changes are noted at C5-C6. Ankylosis of facet articulations at C2-C3 level noted. Overall cervical spinal pedicles are short. C1 ring is intact. At C2-C3, bilateral facet arthritic changes noted. No critical canal stenosis. Mild posterior ligamentous hypertrophic changes noted. At C3-C4 mild right-sided uncovertebral arthritic change noted. Bilateral facet disease, right greater than left is moderate in severity. No critical canal stenosis. Mild right-sided foraminal encroachment. At C4-C5 mild bilateral uncovertebral arthritic and facet arthritic changes are noted. Small central disc protrusion with mild posterior endplate spurring without critical canal stenosis noted. At C5-C6 posterior disc osteophyte formation with no significant canal stenosis noted. Mild bilateral uncovertebral arthritic and facet arthritic changes with mild bilateral foraminal encroachment. At C6-C7 and C7-T1 there is no significant canal stenosis or foraminal stenosis. 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 No acute abnormality at the pulmonary apices. Thyroid is quite atrophic. Prevertebral soft tissues demonstrate no acute abnormality. CT/CT cervical spine wo con IMPRESSION: CT HEAD: 1. Mild background cerebral/cerebellar atrophic changes are identified. No acute intracranial process. 2. Negative for intracranial hemorrhage or acute calvarial fracture. CT CERVICAL SPINE: 1. No acute cervical spinal fracture or subluxation. 2. Mild spondylitic changes at C5-C6 with mild associated canal stenosis. 3. Bilateral uncovertebral arthritic and facet arthritic changes as described. There is ankylosis of facet articulations at C2-C3. 4. 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 Electronically authenticated by: PRIMITIVO PHAN Date: 05/21/2024 11:17
[2024-05-21 06:22] LABS: Hematocrit 28.1 % (42.0-54.0); Hemoglobin 8.3 g/dL (14.0-18.0); Mean Corpuscular HGB Conc 29.5 g/dL (29.9-35.2); Mean Corpuscular Hemoglobin 22.6 pg (25.9-34.0); Mean Corpuscular Volume 76.6 fL (80.0-94.0); Mean Platelet Volume 10.3 fL (9.5-13.5); Platelet Count 312 10^3/uL (150-450); Red Blood Count 3.67 10^6/uL (4.70-6.10); Red Cell Distribution Width 18.2 % (11.0-15.0); White Blood Count 13.2 10^3/uL (4.0-11.0)
[2024-05-21] MEDS: ONDANSETRON PF 4 MG/2 ML VIAL IV (06:23)
[2024-05-21] MEDS: 0.9 % SODIUM CHLORIDE 1,000 ML 125 ML IV (06:23)
[2024-05-21] MEDS: 0.9 % SODIUM CHLORIDE 500 ML IV (06:23)
[2024-05-21 06:54] LABS: Alanine Aminotransferase 206 U/L (16-63); Albumin Globulin Ratio 0.6; Albumin Level 2.5 g/dL (3.4-5.0); Alkaline Phosphatase 538 U/L (46-116); Anion Gap 10.6; Aspartate Amino Transferase 386 U/L (15-37); BUN Creatinine Ratio 12.7; Bilirubin Total 1.3 mg/dL (0.2-1.0); Calcium 8.4 mg/dL (8.5-10.1); Carbon Dioxide 28.8 mmol/L (21.0-32.0); Chloride 99 mmol/L (98-107); Estimated GFR (African America >60 (>=60 mL/min/1.73m^2); Estimated GFR (Non-African Ame >60 (>=60 mL/min/1.73m^2); Globulin 4.1 g/dL; Glucose 154 mg/dL (74-106); Potassium 3.4 mmol/L (3.5-5.1); Sodium 135 mmol/L (136-145); Total Protein 6.6 g/dL (6.4-8.2); Troponin I High Sensitivity 5.9 pg/mL (4.0-76.1)
[2024-05-21 07:10] LABS: Lymphocytes Absolute Manual 0.26 10^3/uL (1.20-3.80); Monocytes Absolute Manual 0.92 10^3/uL (0.30-0.80); Segmented Neut Absolute Manual 12.01 10^3/uL (1.4-6.5)
--- OUTSIDE RECORDS SUMMARY | 2024-05-21 07:45 | XMS_ITS | CCD ---
Author Organization [facility] Care Team Providers Care Motorcycle Racer Name Role Phone BISHOP TURCIOS Admitting Unavailable BISHOP TURCIOS Attending Unavailable BISHOP TURCIOS Primary Care Unavailable BISHOP TURCIOS Consulting Unavailable ASA DUEÑSA Consulting Unavailable HEMKESHA GASPAR Admitting Unavailable HEMKESHA GASPAR Attending Unavailable BISHOP TURCIOS Consulting Unavailable ASA DUEÑAS Consulting Unavailable HEMKESHA GASPAR Admitting Unavailable HEMKESHA GASPAR Attending Unavailable BISHOP TURCIOS Primary Care Unavailable VONNIE DONAHUE V Consulting Unavailable ASA DUEÑAS Consulting Unavailable HEMKESHA GASPAR Consulting Unavailable HEMKESHA GASPAR Admitting Unavailable HEMKESHA GASPAR Attending Unavailable BISHOP TURCIOS Primary Care Unavailable HEMKESHA GASPAR Consulting Unavailable HEMKESHA GASPAR Admitting Unavailable HEMKESHA GASPAR Attending Unavailable ASA DUEÑAS Consulting Unavailable HEMKESHA GASPAR Consulting Unavailable Bishop Turcios MD Unavailable Bishop Turcios MD Primary Care Provider BISHOP TURCIOS Primary Care Physician Enrrique Blanco Attending Unavailable Enrrique Blanco Admitting Unavailable Enrrique Blanco Attending Unavailable Enrrique Blanco Admitting Unavailable Enrrique Blanco Attending Unavailable Enrrique Blanco Admitting Unavailable MD Clark Bass Attending Unavailable Mallorie Piper Referring Unavailable Enrrique Blanco Admitting Unavailable Enrrique Blanco Attending Unavailable KESHA MARIN Attending Unavailable KATHRINE FORMAN Attending Unavailable KESHA MARIN Referring Unavailable KATHRINE FORMAN Attending Unavailable BISHOP TRUCIOS Attending Unavailable ADAN SUAREZ Attending Unavailable ADAN SUAREZ Attending Unavailable KATHRINE FORMAN Attending Unavailable TESHA LIND Attending Unavailable Allergies Allergy Classification Reported Allergen(s) Allergy Type Date of Onset Reaction(s) Facility (8 sources) Naproxen; Translations: [naproxen] Drug Allergy 7 [facility] Repository (10 sources) Penicillin; Translations: [penicillin] Drug Allergy 7 Unknown (qualifier value) [facility] Repository (19 sources) Honey bee venom Propensity to adverse reactions 9 [facility] Healthcare Work Phone: (19 sources) meloxicam Drug Allergy 3 Hives [facility] Healthcare (20 sources) Naproxen; Translations: [naproxen] Drug Allergy 3 Hives [facility] Healthcare (19 sources) Penicillin G Drug Allergy 3 Hives, Unknown [facility] Medications Current Medications Medication Drug Class(es) Dates Sig (Normalized) Sig (Original) aspirin 81 mg oral capsule (20 sources) Platelet Aggregation Inhibitor, Nonsteroidal Anti-inflammatory Drug Start: 05-05-2024 take 1 capsule by mouth once daily aspirin 81 mg oral capsule 81 mg = 1 cap(s), Oral, Daily, Refills(s) 0 Start Date: 05/05/24 Status: Ordered take 1 tablet by mouth once heather y aspirin 81 MG EC tablet Take 1 tablet by mouth 1 (one) time each day at the same time. Active Calcium Carbonate-Vit D-Min (Calcium 600+D3 Plus Minerals) 600-800 MG-UNIT tablet (19 sources) take 600-800 tablets by mouth once daily Calcium Carbonate-Vit D-Min (Calcium 600+D3 Plus Minerals) 600-800 MG-UNIT tablet Take 1 tablet by mouth 1 (one) time each day at the same time. Active Calcium Citrate (2 sources) Start: take 600 mg by mouth twice daily calcium citrate 600 mg, Oral, BID, Refills(s) 0 Start Date: 05/05/24 Status: Ordered ciprofloxacin 500 mg oral tablet (1 source) Quinolone Antimicrobial Start: End: take 1 tablet by mouth every twelve hours Cipro 500 mg Tab 500 mg = 1 tab(s), Oral, q12hr, X 2 day(s), # 4 tab(s), Refills(s) 0, Pharmacy: [facility] #[id number], 175.3, cm, 05/05/24 1:14:00 EST, Height/Length Dosing, 79.6, kg, 05/05/24 1:14:00 EST, Weight Dosing Start Date: 05/06/24 Stop Date: 05/08/24 Status: Ordered diphenhydrAMINE hydrochloride 25 mg oral tablet (2 sources) Histamine-1 Receptor Antagonist Start: diphenhydrAMINE 25 mg, Oral, PRN as needed for itching, Refills(s) 0 Start Date: 05/05/24 Status: Ordered docusate sodium 100 mg oral capsule (20 sources) Start: End: take 1 capsule by mouth twice daily Colace 100 mg Cap 100 mg = 1 cap(s), Oral, BID, X 10 day(s), # 20 cap(s), Refills(s) 0, Pharmacy: [facility] #[id number], 175.3, cm, 05/05/24 1:14:00 EST, Height/Length Dosing, 79.6, kg, 05/05/24 1:14:00 EST, Weight Dosing Start Date: 05/06/24 Stop Date: 05/16/24 Status: Ordered take 1 capsule by [facility] every twenty-four hours as needed Docusate Sodium (DSS) 100 MG capsule Take 1 capsule by mouth Daily as needed. Active ferrous sulfate (20 sources) Start: 05-05-2024 take 65 mg by mouth once daily ferrous sulfate 65 mg, Oral, Daily, Refills(s) 0 Start Date: 05/05/24 Status: Ordered take 1 tablet by mouth once heather y ferrous sulfate 325 (65 Fe) MG tablet Take 1 tablet by mouth 1 (one) time each day at the same time. Active latanoprost 0.05 mg/ml ophthalmic solution (19 sources) Prostaglandin Analog Start: 07-27-2022 take 1 drop(s) into the eye(s) in the morning latanoprost (Xalatan) 0.005 % ophthalmic solution Administer 1 drop into both eyes in the morning. 07/27/2022 Active levothyroxine sodium 0.137 mg oral tablet (20 sources) l-Thyroxine Start: 05-05-2024 take 1 tablet by mouth once daily levothyroxine 137 mcg (0.137 mg) Tab 137 mcg = 1 tab(s), Oral, Daily, Refills(s) 0 Start Date: 05/05/24 Status: Ordered Start: 02-14-2024 take 1 tablet by jeanne th once daily before mealtime levothyroxine (Synthroid, Levoxyl) 137 MCG tablet Indications: Hypothyroidism (acquired) (CMS/HCC) TAKE 1 TABLET BY MOUTH ONCE DAILY IN THE MORNING BEFORE MEAL(S) 100 tablet 02/14/2024 Active Start: 08-04-2023 take 1 tablet by jeanne th once daily before mealtime levothyroxine (Synthroid, Levoxyl) 137 MCG tablet Indications: Hypothyroidism (acquired) (CMS/HCC) TAKE 1 TABLET BY MOUTH ONCE DAILY IN THE MORNING BEFORE MEALS 100 tablet 08/04/2023 Active melatonin 5 mg oral tablet (20 sources) Start: 05-05-2024 take 5 mg by mouth once daily at bedtime melatonin 5 mg, Oral, Once a day (at bedtime), Refills(s) 0 Start Date: 05/05/24 Status: Ordered metroNIDAZOLE 500 mg oral tablet (1 source) Nitroimidazole Antimicrobial Start: 05-06-2024 End: 05-08-2024 take 1 tablet by mouth every eight hours Flagyl 500 mg Tab 500 mg = 1 tab(s), Oral, q8hr, X 2 day(s), # 6 tab(s), Refills(s) 0, Pharmacy: [facility] #[id number], 175.3, cm, 05/05/24 1:14:00 EST, Height/Length Dosing, 79.6, kg, 05/05/24 1:14:00 EST, Weight Dosing Start Date: 05/06/24 Stop Date: 05/08/24 Status: Ordered Multiple Vitamin (MULTIVITAMINS PO) (19 sources) take 1 tablet by mouth once daily Multiple Vitamin (MULTIVITAMINS PO) Take 1 tablet by mouth 1 (one) time each day. Active Multiple Vitamins oral capsule (2 sources) Start: 05-05-2024 take 1 capsule by mouth once daily Multiple Vitamins oral capsule 1 cap(s), Oral, Daily, Refill(s) 0 Start Date: 05/05/24 Status: Ordered omeprazole 40 mg delayed release oral capsule (20 sources) Proton Pump Inhibitor Start: 04-07-2024 take 1 capsule by mouth once daily omeprazole (PriLOSEC) [address] capsule Indications: Gastroesophageal reflux disease without esophagitis TAKE 1 CAPSULE BY MOUTH ONCE DAILY AT THE SAME TIME EACH DAY 100 capsule 04/07/2024 Active Start: 01-03-2024 take 1 capsule by [facility] once daily omeprazole (PriLOSEC) [address] capsule Indications: Gastroesophageal reflux disease without esophagitis TAKE 1 CAPSULE BY MOUTH ONCE DAILY AT THE SAME TIME EACH DAY 100 capsule 01/03/2024 Active oxyCODONE hydrochloride 5 mg oral tablet (1 source) Opioid Agonist Start: 05-06-2024 End: 05-09-2024 oxyCODONE 5 mg Tab 2.5 mg = 0.5 tab(s), Oral, q6hr, PRN Pain 8-10, X 3 day(s), # 6 tab(s), Refills(s) 0, Pharmacy: [facility] #[id number], 175.3, cm, 05/05/24 1:14:00 EST, Height/Length Dosing, 79.6, kg, 05/05/24 1:14:00 EST, Weight Dosing Start Date: 05/06/24 Stop Date: 05/09/24 Status: Ordered sennosides, group home 8.6 mg oral tablet (1 source) Start: 05-06-2024 End: 05-16-2024 take 1 tablet by mouth once daily at bedtime senna 8.6 mg Tab 8.6 mg = 1 tab(s), Oral, Once a day (at bedtime), X 10 day(s), # 10 tab(s), Refills(s) 0, Pharmacy: [facility] #[id number], 175.3, cm, 05/05/24 1:14:00 EST, Height/Length Dosing, 79.6, kg, 05/05/24 1:14:00 EST, Weight Dosing Start Date: 05/06/24 Stop Date: 05/16/24 Status: Ordered Tylenol 8 HR Arthritis Pain (2 sources) Start: 05-05-2024 Tylenol 8 HR Arthritis Pain 650 mg, Oral, PRN as needed for pain, Refills(s) 0 Start Date: 05/05/24 Status: Ordered vitamin B12 (20 sources) Vitamin B12 Start: 05-05-2024 take 500 ug by mouth once daily Vitamin B12 500 mcg, Oral, Daily, Refills(s) 0 Start Date: 05/05/24 Status: Ordered take 1 tablet by mouth once heather y cyanocobalamin (Vitamin B-12) 100 MCG tablet Take 1 tablet by mouth 1 (one) time each day at the same time. Active Completed/Discontinued Medications Medication Drug Class(es) Dates Sig (Normalized) Sig (Original) azithromycin 250 mg oral tablet (6 sources) Macrolide Antimicrobial Start: 03-26-2023 End: 01-10-2024 azithromycin (Zithromax) 250 MG tablet Indications: Acute maxillary sinusitis, recurrence not specified 2 tabs x 1 day, 1 tab x 4 days 6 tablet 03/26/2023 01/10/2024 Discontinued (Therapy completed) docosahexaenoic acid 120 mg / eicosapentaenoic acid 180 mg oral capsule (16 sources) End: 05-04-2024 take 1 capsule by mouth every twelve hours omega-3 (Fish Oil) 1000 MG capsule Take 1 capsule by mouth every 12 (twelve) hours. 05/04/2024 Discontinued (Therapy completed) Problems Active Problems Problem Classification Problem Date Documented Da te Episodic/Chronic Abdominal pain (2 sources) Generalized abdominal pain; Translations: [Generalized abdominal pain] 05-04-2024 Episodic Administrative/social admission (2 sources) Patient encounter status; Translations: [Other specified counseling] 01-10-2024 Episodic Biliary tract disease (2 sources) Acute cholecystitis; Translations: [Acute cholecystitis] Onset: 5 Episodic Coagulation and hemorrhagic disorders (2 sources) Thrombocytopenic disorder; Translations: [Thrombocytopenia, unspecified] 05-18-2024 Chronic Deficiency and other anemia (1 source) Anemia; Translations: [Anemia, unspecified] Onset: 5 Episodic Deficiency and other anemia (2 sources) Microcytic anemia; Translations: [Iron deficiency anemia, unspecified] 05-18-2024 Episodic Esophageal disorders (20 sources) Gastroesophageal reflux disease without esophagitis; Translations: [Gastro-esophageal reflux disease without esophagitis] Onset: 3 12-16-2022 Chronic Miscellaneous mental health disorders (20 sources) Chronic insomnia; Translations: [Psychophysiologic insomnia] Onset: 3 12-16-2022 Chronic Osteoarthritis (20 sources) Bilateral primary osteoarthritis of knee; Translations: [Degenerative joint disease involving multiple joints] Onset: 0 12-16-2022 Chronic Other aftercare (3 sources) Removal of sutures done; Translations: [Encounter for removal of sutures] 03-15-2024 Episodic Other gastrointestinal disorders (2 sources) Chronic idiopathic constipation; Translations: [Chronic idiopathic constipation] 05-04-2024 Chronic Other non-epithelial cancer of skin (5 sources) Basal cell carcinoma of truncal skin; Translations: [Basal cell carcinoma of skin of other part of trunk] 03-01-2024 Episodic Other non-traumatic joint disorders (1 source) Pain in right knee; Translations: [PAIN IN RIGHT KNEE] Onset: 9 Episodic Other non-traumatic joint disorders (4 sources) Pain in left knee; Translations: [PAIN IN LEFT KNEE] Onset: 9 Episodic Other nutritional; endocrine; and metabolic disorders (20 sources) Lipoprotein deficiency disorder; Translations: [Lipoprotein deficiency] Onset: 3 12-16-2022 Chronic Other nutritional; endocrine; and metabolic disorders (2 sources) Decrease in appetite; Translations: [Anorexia] 05-18-2024 Episodic Other skin disorders (4 sources) Actinic keratosis; Translations: [Actinic keratosis] 03-28-2024 Episodic Spondylosis; intervertebral disc disorders; other back problems (20 sources) Spondylosis without myelopathy or radiculopathy, cervical region; Translations: [Cervical spondylosis without myelopathy] Onset: 9 12-16-2022 Chronic Thyroid disorders (20 sources) Acquired hypothyroidism; Translations: [Hypothyroidism, unspecified] Onset: 3 12-16-2022 Chronic Past or Other Problems Problem Classification Problem Date Documented Da te Episodic/Chronic Diabetes mellitus without complication (19 sources) Impaired glucose tolerance; Translations: [Impaired glucose tolerance (oral)] Onset: 12-16-2022 12-16-2022 Episodic Mood disorders (19 sources) Mood disorders Onset: 01-06-2023 01-06-2023 Neoplasms of unspecified nature or uncertain behavior (2 sources) Neoplastic disease; Translations: [Neoplasm of unspecified behavior of bone, soft tissue, and skin] 01-03-2024 Episodic Other bone disease and musculoskeletal deformities (20 sources) Disorder of bone, unspecified; Translations: [Disorder of bone and cartilage, unspecified] Onset: 04-06-2019 12-16-2022 Episodic Other nutritional; endocrine; and metabolic disorders (19 sources) Overweight; Translations: [Overweight] Onset: 12-16-2022 12-16-2022 Episodic Other screening for suspected conditions (not mental disorders or infectious disease) (20 sources) Abnormal findings on diagnostic imaging of limbs; Translations: [Plain X-ray knee abnormal] Onset: 05-15-2019 12-16-2022 Episodic Other skin disorders (2 sources) Seborrheic keratosis; Translations: [Other seborrheic keratosis] 01-03-2024 Episodic Other skin disorders (2 sources) Lentiginosis; Translations: [Other melanin hyperpigmentation] 01-03-2024 Episodic Spondylosis; intervertebral disc disorders; other back problems (4 sources) Cervicalgia; Translations: [CERVICALGIA] Onset: 07-07-2018 Episodic Results Test Name Value Interpretation Reference Range Facility Surgical Pathology Reporton 05-12-2024 [place] [address]- Surgical Pathology Report Collected Date/Time: 05/05/2024 12:50 EST Pathologist: Sloan LEONARD PhD, Remington Davis Received Date/Time: 05/05/2024 13:37 EST Bella LEONARD, Enrrique Blanco MD, Enrrique Smallwood Surgical Pathology Report - 05/12/2024 14:57 EST - Auth (Verified) Final Diagnosis GALLBLADDER, CHOLECYSTECTOMY: - EXTENSIVE HEMORRHAGIC GANGRENOUS CHOLECYSTITIS WITH TRANSMURAL INVOLVEMENT. (Electronic Signature) Remington Lisa MD PhD 05/12/2024 14:57 Clinical Information Acute cholecystitis Pre-Op Diagnosis: Acute cholecystitis Procedure: Cholecystectomy Post-Op Diagnosis: Acute cholecystitis Specimen(s) Received Gallbladder Gross Description Received in formalin labeled with patient name, number, and gallbladder is a previously opened gallbladder measuring 8 x 3.8 x 2.5 cm. The serosal surface is martinez/red/pink, partially smooth, and has a dull shine. Near the previously surgically opened site, there is a round martinez nodule measuring 0.2 x 0.2 cm . The assumed cystic duct and is fragmented. The wall of the gallbladder measures up to 1 cm in thickness. The mucosal surface is martinez/pink, velvety, with a meaty appearance. Cross-sectioning through the gallbladder, it has a martinez/red/pink thickened granular appearance. Wireline Operator portion is submitted in a total of five cassettes: 1 - Assumed cystic duct opening 2 -5 Sections of gallbladder; 4 - Contains the outer serosal nodular appearance DC:[facility] Microscopic Description Microscopic examination performed unless gross only specified. Normal [facility] Comment on above: Performed By: #### [id number] #### [facility] [address] [place] [address] Coding Queryon 05-10-2024 Coding Query Coding Query From: Joselo ALVARENGA, Berna To: Bella LEONARD, Enrrique Chino; Cc: Ju Jerry; Sent: 05/10/2024 10:09:46 EST ! Subject: Coding Query Due Date/Time: 05/29/2024 10:09:00 EST Caller Name: VALENCIA BROOKS; Caller Number: H Documentation in the medical record indicates a diagnosis of Anemia with: Other: 05/06 progress note-2. Anemia (D64.9: Anemia, unspecified) - No indication for transfusion. Patient was anemic on admission, slight downtrending of hemoglobin postoperatively, not unexpected. Continue to monitor with CBC in the morning. dc summary-Discharge Diagnoses 1. Acute cholecystitis, 05/05/2024 2. Anemia, 05/05/2024 Based on your medical judgment, can you please clarify which, if any, of the following conditions are present? Respond back with any that apply: [___]Acute posthemorrhagic anemia [___]Anemia, unspecified [___]Chronic Anemia: blood loss [___]Chronic Anemia: hemolytic [___]Chronic Anemia: hemolytic: idiopathic [___]Chronic Anemia: simple [___]Other (please specify): In responding to this request, please exercise your independent professional judgement. The fact that a question is asked does not imply that any particular answer is desired or expected. Thank you! Berna [phone] [facility] Main OR Intraoperative Recor don 05-08-2024 Main OR Intraoperative Record Main OR Intraoperative Record IntraOp Document Type FT Summary Primary Physician: Enrrique Blanco MD Finalized Date/Time: 05/08/24 08:03:55 Pt. Name: VALENCIA BROOKS/Sex: 1940 Male Med Rec #: [id number] Physician: Enrrique Blanco MD Financial #: [id number] Pt. Type: I Room/Bed: [place] [address] Admit/Disch: 05/04/24 20:49:17 - 05/07/24 13:09:16 Institution: Case Times FT Entry 1 Patient Times In Room 05/05/24 11:32:00 Out Room 05/05/24 13:27:00 Procedure Times Start 05/05/24 11:58:00 Stop 05/05/24 13:19:00 Anesthesia Times Start 05/05/24 11:32:00 Stop 05/05/24 13:27:00 Last Modified By: Mauricio ALVARENGA, Steph Astorga 05/05/24 13:27:15 General Comments: 04/28/24 Chart opened to review and send charges [facility] CSFA Case Attendance FT Entry 1 Entry 2 Entry 3 Case Attendee Julio Cesar HIGGINBOTHAM, Alvaro Blanco MD, Enrrique Martínez RN, Steph Astorga Role Performed ANAHY Surgeon - Primary Landscape Management Technician - Primary Time In 05/05/24 11:32:00 05/05/24 11:54:00 05/05/24 11:32:00 Time Out 05/05/24 13:27:00 05/05/24 13:27:00 05/05/24 13:27:00 Procedure CHOLECYSTECTOMY CHOLECYSTECTOMY CHOLECYSTECTOMY LAPAROSCOPIC W/ CHOLANGI LAPAROSCOPIC W/ CHOLANGI LAPAROSCOPIC W/ CHOLANGI Comments DR. MCCULLOUGH SUPERVISING Last Modified By: Mauricio ALVARENGA, Steph Martínez RN, Steph Martínez RN, Steph Astorga 05/05/24 Maria T P 05/05/24 Maria T P 05/05/24 13:27:16 13:27:16 13:27:16 Entry 4 Entry 5 Entry 6 Case Attendee Julissa Barrios LPN, RN, Mallorie Jenkins PA-C Role Performed Scrub - Primary Staff - Other PA/CURVE CLEANER Time In 05/05/24 11:32:00 05/05/24 11:32:00 05/05/24 11:54:00 Time Out 05/05/24 13:27:00 05/05/24 11:52:00 05/05/24 13:27:00 Procedure CHOLECYSTECTOMY CHOLECYSTECTOMY CHOLECYSTECTOMY LAPAROSCOPIC W/ CHOLANGI LAPAROSCOPIC W/ CHOLANGI LAPAROSCOPIC W/ CHOLANGI Comments helping in room Last Modified By: Mauricio ALVARENGA, Steph Martínez RN, Steph Martínez RN, Steph Astorga 05/05/24 Maria T Astorga 05/05/24 Maria T Astorga 05/05/24 13:27:16 13:27:16 13:27:16 Perioperative Protocols FT Pre-Care Text: Implements protective measures prior to operative or invasive procedure, confirms identity before the operative or invasive procedure, verifies operative procedure, surgical site, and laterality Entry 1 Procedure(s) CHOLECYSTECTOMY Patient Identity Birthday, ID Band LAPAROSCOPIC W/ CHOLANGI Verified (select at Check, Patient least 2): Participation Consents / H and P Anesthesia Consent, Operative Site N/A Verified Surgery/Procedure Marking Verified Consent, Transfusion Consent Surgical Site Yes Laterality Verified n/a Verified Procedure Verified Yes Correct Patient Yes Position Verified Availability Equipment, Medication Prep Dry Yes Verified (If Applicable) PreOp Antibiotic Yes Time Out Bella LEONARD, Enrrique Chino, Given Participants Alvaro Harrell CRNA, Ferrer RN, Steph Astorga, Denis DE LEÓN, Julissa Almaraz Time Out Complete 05/05/24 11:57:00 Outcomes Met? Yes Last Modified By: Steph Martínez RN 05/05/24 12:21:33 Post-Care Text: The patient is free from signs and symptoms of injury caused by extraneous objects Allergy Information FT Pre-Care Text: Verifies allergies Entry 1 Allergies Reviewed? Yes Allergies Reviewed Self/Patient With Outcomes Met? Yes Last Modified By: Steph Martínez RN 05/05/24 12:21:40 Post-Care Text: The patient received appropriate medication(s) safely administered during the perioperative period Surgical Procedures FT Entry 1 Procedure Description Procedure CHOLECYSTECTOMY Surgeon Description LAPAROSCOPIC LAPAROSCOPIC W/ CHOLECYSTECTOMY, CHOLANGIOGRAM INTRAOPERATIVE TAP BLOCK Primary Procedure Yes Primary Surgeon Bella LEONARD, Enrrique Chino Start 05/05/24 11:58:00 Stop 05/05/24 13:19:00 Anesthesia Type General Surgical Service General Wound Class 2 - Clean-Contaminated Last Modified By: Steph Martínez RN 05/05/24 13:19:24 General Case Data FT Pre-Care Text: Classifies surgical wound, implements aseptic technique, initiates traffic control Entry 1 Case Information OR OR 2 FT Case Level Level 3 Wound Class 2 - Clean-Contaminated Specialty General ASA Class 3E Preop Diagnosis Acute cholecystitis Postop Same As Preop Yes Postop Diagnosis Acute cholecystitis Outcomes Met? Yes Last Modified By: Steph Martínez RN 05/05/24 12:27:38 Post-Care Text: The patient is free from signs and symptoms of infection Skin Assessment (Pre Procedure) FT Pre-Care Text: Implements protective measures to prevent skin/ tissue injury due to thermal or mechanical sources Evaluates for signs and symptoms of physical injury to skin and tissue Entry 1 Skin Integrity Intact, [place], Warm, & Skin Abnormality No Dry Outcomes Met? Yes Last Modified By: Steph Martínez RN 05/05/24 12:22:17 Post-Care Text: The patient is free from signs and symptoms (more content not included)... Normal [facility] BMPon 05-07-2024 Anion gap [Moles/Vol] 10 mmol/L Normal 6-16 [facility] Comment on above: Performed By: #### [id number] #### [facility] [address] [place] [address] Calcium [Mass/Vol] 8.2 mg/dL Low 8.9-11.1 [facility] Comment on above: Performed By: #### 2 [id number] #### [facility] [address] [place] [address] Chloride [Moles/Vol] 104 mmol/L Normal 101-111 [facility] Comment on above: Performed By: #### 2 [id number] #### [facility] [address] [place] [address] CO2 [Moles/Vol] 26 mmol/L Normal 21-[address] [facility] Comment on above: Performed By: #### 2 [id number] #### [facility] [address] [place] [address] Creatinine [Mass/Vol] 0.8 mg/dL Normal 0.5-1.3 [facility] Comment on above: Performed By: #### 2 [id number] #### [facility] [address] [place] [address] Glucose [Mass/Vol] 109 mg/dL Normal 55-199 [facility] Comment on above: Performed By: #### 2 [id number] #### [facility] [address] [place] [address] Potassium [Moles/Vol] 3.6 mmol/L Normal 3.5-5.3 [facility] Comment on above: Performed By: #### 2 [id number] #### [facility] [address] [place] [address] Sodium [Moles/Vol] 136 mmol/L Normal 135-145 [facility] Comment on above: Performed By: #### 2 [id number] #### [facility] [address] [place] [address] Urea nitrogen [Mass/Vol] 17 mg/dL Normal 5-21 [facility] Comment on above: Performed By: #### 2 [id number] #### [facility] [address] [place] [address] Urea nitrogen/Creatinine [Mass ratio] 21 No Units High 10-20 [facility] Comment on above: Performed By: #### 2 [id number] #### [facility] [address] [place] [address] CBC w/ Auto Diffon 5 Acanthocytes LM Ql (Bld) PRESENT Invalid Interpretation Code [facility] Comment on above: Performed By: #### 2 [id number] #### [facility] [address] [place] [address] Basophils/100 WBC (Bld) 0.3 % Normal 0.0-2.0 [facility] Comment on above: Performed By: #### 2 [id number] #### [facility] [address] [place] [address] Basophils/Leukocytes Auto (Bld) [Pure # fraction] 0.0 E9/L Normal 0.0-0.2 [facility] Comment on above: Performed By: #### 2 [id number] #### [facility] [address] [place] [address] Elliptocytes LM Ql (Bld) PRESENT Invalid Interpretation Code [facility] Comment on above: Performed By: #### 2 [id number] #### [facility] [address] [place] [address] Eosinophils (Bld) [#/Vol] 0.1 E9/L Normal 0.0-0.5 [facility] Comment on above: Performed By: #### 2 [id number] #### [facility] [address] [place] [address] Eosinophils/100 WBC (Bld) 0.8 % Normal 0.0-8.0 [facility] Comment on above: Performed By: #### 2 [id number] #### [facility] [address] [place] [address] Erythrocyte distribution width (RBC) [Ratio] 19.6 % High 10.9-14.2 [facility] Comment on above: Performed By: #### 2 [id number] #### [facility] [address] [place] [address] Hematocrit (Bld) [Volume fraction] 27.9 % Low 37.7-49.0 [facility] Comment on above: Performed By: #### 2 [id number] #### [facility] [address] [place] [address] Hemoglobin (Bld) [Mass/Vol] 9.0 g/dL Low 13.5-17.5 [facility] Comment on above: Performed By: #### 2 [id number] #### [facility] [address] [place] [address] Hypochromia Auto Ql (Bld) PRESENT Invalid Interpretation Code [facility] Comment on above: Performed By: #### 2 [id number] #### [facility] [address] [place] [address] Lymphocytes (Bld) [#/Vol] 1.3 E9/L Normal 1.0-4.0 [facility] Comment on above: Performed By: #### 2 [id number] #### [facility] [address] [place] [address] Lymphocytes/100 WBC (Bld) 11.8 % Low 14.0-50.0 [facility] Comment on above: Performed By: #### 2 [id number] #### [facility] [address] [place] [address] MCH (RBC) [Entitic mass] 23.3 pg Low 27.0-34.0 [facility] Comment on above: Performed By: #### 2 [id number] #### [facility] [address] [place] [address] MCHC (RBC) [Mass/Vol] 32.1 g/dL Normal 31.4-36.0 [facility] Comment on above: Performed By: #### 2 [id number] #### [facility] [address] [place] [address] MCV (RBC) [Entitic vol] 72.6 fL Low 80.0-100.0 [facility] Comment on above: Performed By: #### 2 [id number] #### [facility] [address] [place] [address] Monocytes (Bld) [#/Vol] 1.0 E9/L Normal 0.2-1.0 [facility] Comment on above: Performed By: #### 2 [id number] #### [facility] [address] [place] [address] Neutrophils (Bld) [#/Vol] 9.0 E9/L High 2.0-7.5 [facility] Comment on above: Performed By: #### 2 [id number] #### [facility] [address] [place] [address] Neutrophils/100 WBC (Bld) 78.3 % High 36.0-75.0 [facility] Comment on above: Performed By: #### 2 [id number] #### [facility] [address] [place] [address] Platelet mean volume (Bld) [Entitic vol] 9.1 fL Normal 6.4-10.8 [facility] Comment on above: Performed By: #### 2 [id number] #### [facility] [address] [place] [address] Platelets (Bld) [#/Vol] 126.0 E9/L Low 150.0-500.0 [facility] Comment on above: Performed By: #### 2 000016 #### [facility] [address] [place] [address] RBC (Bld) [#/Vol] 3.8 E12/L Low 4.3-5.9 [facility] Comment on above: Performed By: #### 2 [id number] #### [facility] [address] [place] [address] RBC size Nom (Bld) SEE MORPHOLOGY Invalid Interpretation Code [facility] Comment on above: Performed By: #### 2 [id number] #### [facility] [address] [place] [address] WBC corrected for nucl RBC Auto (Bld) [#/Vol] 11.5 E9/L High 4.0-11.[address] [facility] Comment on above: Performed By: #### 2 [id number] #### [facility] [address] [place] [address] CHEMISTRYOrdered By: Lab ROP User on 05-07-2024 Glucose [Mass/Vol] 204 mg/dL High 55 - 99 mg/dL [facility] POC Subsection Comment on above: Result Comment: Margarito mohan RN/ POC Username LIOR GALARZA Invalid Interpretation Code [facility] POC Subsection Sodium [Moles/Vol] [id number] mmol/L Invalid Interpretation Code [facility] POC Subsection Sodium [Moles/Vol] [id number] mmol/L Invalid Interpretation Code [facility] POC Subsection Glucose [Mass/Vol] 106 mg/dL High 55 - 99 mg/dL [facility] POC Subsection Comment on above: Result Comment: Margarito mohan RN/ POC Username LIOR GALARZA Invalid Interpretation Code [facility] POC Subsection Sodium [Moles/Vol] [id number] mmol/L Invalid Interpretation Code [facility] POC Subsection Sodium [Moles/Vol] [id number] mmol/L Invalid Interpretation Code [facility] POC Subsection CHEMISTRYOrdered By: SYSTEM SYSTEM on 05-07-2024 Albumin [Mass/Vol] 3.3 g/dL Normal 3.3 - 5.0 gm/dL [facility] Albumin/Globulin [Mass ratio] 1.2 {ratio} Normal 1.1 - 2.2 [facility] ALP [Catalytic activity/Vol] 58 [iU]/d Normal 21 - 98 Int._Unit/L [facility] Chem ALT No additional P-5'-P [Catalytic activity/Vol] 8 [iU]/d Normal 6 - 46 Int._Unit/L [facility] Anion gap [Moles/Vol] 10 mmol/L Normal 6 - 16 mEq/L R emisol Chem AST [Catalytic activity/Vol] 15 [iU]/d Normal 5 - 43 Int._Unit/L [facility] Bilirubin [Mass/Vol] 0.6 mg/dL Normal 0.0 - 1 .1 mg/dL [facility] Bilirubin.direct [Mass/Vol] 0.1 mg/dL Normal 0.0 - 0.4 mg/dL [facility] Bilirubin.indirect [Mass or moles/Vol] 0.5 mg/dL Normal 0.1 - 0.9 mg/dL [facility] Calcium [Mass/Vol] 8.2 mg/dL Low 8.9 - 11. 1 mg/dL [facility] Chloride [Moles/Vol] 104 mmol/L Normal 101 - 1 11 mmol/L [facility] CO2 [Moles/Vol] 26 mmol/L Normal 21 - 31 mmol/L [facility] Creatinine [Mass/Vol] 0.8 mg/dL Normal 0.5 - 1.3 mg/dL [facility] eGFR 89 mL/min/1.73 m2 Normal >=59mL/min /1 .73 m2 [facility] Globulin (S) [Mass/Vol] 2.7 g/dL Normal 1.4 - 4.0 gm/dL [facility] Glucose [Mass/Vol] 109 mg/dL Normal 55 - 199 mg/dL [facility] Potassium [Moles/Vol] 3.6 mmol/L Normal 3.5 - 5.3 mmol/L [facility] Protein [Mass/Vol] 6.0 g/dL Normal 6.0 - 7.8 gm/dL [facility] Sodium [Moles/Vol] 136 mmol/L Normal 135 - 145 mmol/L [facility] Urea nitrogen [Mass/Vol] 17 mg/dL Normal 5 - 21 mg/dL [facility] Urea nitrogen/Creatinine [Mass ratio] 21 mg/mg High 10 - 20 [facility] Capillary Glucose POCon 04-26 Glucose [Mass/Vol] 204 mg/dL High 55-99 [facility] Comment on above: Result Comment: Margarito mohan RN/ Performed By: #### 2 [id number] #### [facility] [address] [place] [address] Glucose [Mass/Vol] 106 mg/dL High 55-99 [facility] Comment on above: Result Comment: Margarito mohan RN/ Performed By: #### 2 [id number] #### [facility] [address] [place] [address] Discharge Note-Nursingon Discharge Note-Nursing Discharge Note-Nursing Significant other Portia at bedside, instructed and observed how to empty KELVIN drain including how to squeeze air back out of bulb to resume suction. Portia verbalized understanding and had no questions. Given sterile cup and asked to empty drain at least every 6 hours and document information to take to clinic follow up. Normal [facility] Discharge Note-Nursing Discharge Note-Nursing VALENCIA BROOKS :1940 Visit Date:05/04/2024 Inpatient Discharge Instructions Your Care Team Admitting Physician - Enrrique Blanco MD Reason for Your Visit Acute Cholecysty Your Diagnosis Acute cholecystitis Anemia Tests Performed CXR This Is Your Medications List acetaminophen (Tylenol 8 HR Arthritis Pain) aspirin (aspirin 81 mg oral capsule) calcium citrate ciprofloxacin (Cipro 500 mg Tab) cyanocobalamin (Vitamin B12) diphenhydrAMINE docusate (Colace 100 mg Cap) ferrous sulfate levothyroxine (levothyroxine 137 mcg (0.137 mg) Tab) melatonin metronidazole (Flagyl 500 mg Tab) multivitamin (Multiple Vitamins oral capsule) omeprazole (omeprazole 40 mg Cap-DR) oxycodone (oxyCODONE 5 mg Tab) senna (senna 8.6 mg Tab) Discharge Vitals Temperature (Axillary) 36.9 ???C Heart Rate (Monitored) 95 Respiratory Rate 16 Blood Pressure 126/64 Weight 80 kg What to do next Instructions From Your Doctor Event Name Event Result Pending Diagnostic Test Results None Discharge Instructions KELVIN drain to remain in place until clinic follow upIf drain changes to a green color, this is not unexpectedYou do not need to return to the ED with green output from the drain unless you are feeling ill New Follow Up Appointments after Discharge Follow Up with trauma clinic When: 05/17/2024 09:45 AM EST Comments: Call to schedule/confirm followup appointment Where: [address] [place] [address] 3, second floor, [address] [place] [address]- [phone] Follow Up with BISHOP TURCIOS When: Comments: Follow-up with PCP for chronic medical conditions Where: [address] [place] [address] [phone] Business (1) Medications What How Much When Why Instructions Next Dose New ciprofloxacin (Cipro 500 mg Tab) 1 Tablets By Mouth Every 12 hours Duration: 2 Days Pickup at [facility] 05/07/21 12pm New docusate (Colace 100 mg Cap) 1 Capsules By Mouth 2 times a day Duration: 10 Days Pickup at [facility] 05/07/24 9pm New metronidazole (Flagyl 500 mg Tab) 1 Tablets By Mouth Every 8 hours Duration: 2 Days Pickup at [facility] 05/07/24 12pm New oxycodone (oxyCODONE 5 mg Tab) 0.5 Tablets By Mouth Every 6 hours as needed for Pain 8-10 Acute cholecystitis Duration: 3 Days Pickup at [facility] as needed 3 times a day New senna (senna 8.6 mg Tab) 1 Tablets By Mouth Once a day (at bedtime) Duration: 10 Days Pickup at [facility] 05/07/24 9pm Unchanged acetaminophen (Tylenol 8 HR Arthritis Pain) 650 Milligram By Mouth As needed for as needed for pain as needed Unchanged aspirin (aspirin 81 mg oral capsule) 1 Capsules By Mouth Every day as normal Unchanged calcium citrate 600 Milligram By Mouth 2 times a day as normal Unchanged cyanocobalamin (Vitamin B12) 500 Microgram By Mouth Every day as normal Unchanged diphenhydrAMINE 25 Milligram By Mouth As needed for as needed for itching as normal Unchanged ferrous sulfate 65 Milligram By Mouth Every day as normal Unchanged levothyroxine (levothyroxine 137 mcg (0.137 mg) Tab) 1 Tablets By Mouth Every day as normal Unchanged melatonin 5 Milligram By Mouth Once a day (at bedtime) as normal Unchanged multivitamin (Multiple Vitamins oral capsule) 1 Capsules By Mouth Every day as normal Unchanged omeprazole (omeprazole 40 mg Cap-DR) 1 Capsules By Mouth Every day as normal Pharmacy Information [facility]: [address] [place] [id number] [phone] Test Results CBC BMP WBC: 11.5 E9/L High (05/07/24 05:33:00) Glucose Lvl: 109 mg/dL (05/07/24 05:33:00) RBC: 3.8 E12/L Low (05/07/24 05:33:00) BUN: 17 mg/dL (05/07/24 05:33:00) HGB: 9 gm/dL Low (05/07/24 05:33:00) Creatinine: 0.8 mg/dL (05/07/24 05:33:00) Hct: 27.9 % Low (05/07/24 05:33:00) BUN/Creat Ratio: 21 High (05/07/24 05:33:00) MCV: 72.6 fL Low (05/07/24 05:33:00) Sodium Lvl: 136 mmol/L (05/07/24 05:33:00) MCH: 23.3 pg Low (05/07/24 05:33:00) Potassium Lvl: 3.6 mmol/L (05/07/24 05:33:00) MCHC: 32.1 gm/dL (05/07/24 05:33:00) Chloride: 104 mmol/L (05/07/24 05:33:00) RDW: 19.6 % High (05/07/24 05:33:00) CO2: 26 mmol/L (05/07/24 05:33:00) Platelet: 126 E9/L Low (05/07/24 05:33:00) AGAP: 10 mEq/L (05/07/24 05:33:00) MPV: 9.1 fL (05/07/24 05:33:00) Calcium Lvl: 8.2 mg/dL Low (05/07/24 05:33:00) Allergies naproxen (Swelling) penicillin (Rash, Unknown) Problems Ongoing - Any problem that you are currently receiving treatment for. Chronic GERD [employer] [place], [place] Marty Benson MD, FACS DISCHARGE INSTRUCTIONS CARING FOR YOUR REID-BOLDEN DRAINAGE TUBE You have been discharged with a Reid-Bolden drainage tube. This tube will help healing and reduce the risk of infection by removing fluid through your incision. It is attached to (more content not included)... Normal [facility] HEMATOLOGYOrdered By: SYSTEM SYSTEM on 05-07-2024 Acanthocytes LM Ql (Bld) PRESENT *NA* (05/07/24 5:33 AM) Invalid Interpretation Code [facility] Basophils/100 WBC (Bld) 0.3 % Normal 0.0 - 2.0 % [facility] Basophils/Leukocytes Auto (Bld) [Pure # fraction] 0.0 E9/L Normal 0.0 - 0.2 E9/L [facility] Elliptocytes LM Ql (Bld) PRESENT *NA* (05/07/24 5:33 AM) Invalid Interpretation Code [facility] Eosinophils (Bld) [#/Vol] 0.1 E9/L Normal 0.0 - 0.5 E9/L [facility] Eosinophils/100 WBC (Bld) 0.8 % Normal 0.0 - 8.0 % [facility] Erythrocyte distribution width (RBC) [Ratio] 19.6 % High 10.9 - 14.2 % [facility] Hematocrit (Bld) [Volume fraction] 27.9 % Low 37.7 - 49.0 % [facility] Hemoglobin (Bld) [Mass/Vol] 9.0 g/dL Low 13.5 - 17.5 gm/dL [facility] Hypochromia Auto Ql (Bld) PRESENT *NA* (05/07/24 5:33 AM) Invalid Interpretation Code [facility] Lymphocytes (Bld) [#/Vol] 1.3 E9/L Normal 1.0 - 4.0 E9/L [facility] Lymphocytes/100 WBC (Bld) 11.8 % Low 14.0 - 50.0 % [facility] MCH (RBC) [Entitic mass] 23.3 pg Low 27.0 - 34.0 pg [facility]e MCHC (RBC) [Mass/Vol] 32.1 g/dL Normal 31.4 - 36.0 gm/dL [facility] MCV (RBC) [Entitic vol] 72.6 fL Low 80.0 - 100.0 fL [facility] Monocytes (Bld) [#/Vol] 1.0 E9/L Normal 0.2 - 1.0 E9/L [facility] Monocytes/100 WBC (Bld) 8.8 % Normal 4.0 - 14.0 % [facility] Neutrophils (Bld) [#/Vol] 9.0 E9/L High 2.0 - 7.5 E9/L [facility] Neutrophils/100 WBC (Bld) 78.3 % High 36.0 - 75.0 % [facility] Platelet mean volume (Bld) [Entitic vol] 9.1 fL Normal 6.4 - 10.8 fL [facility] Platelets (Bld) [#/Vol] 126.0 E9/L Low 150.0 - 500.0 E9/L [facility] RBC (Bld) [#/Vol] 3.8 E12/L Low 4.3 - 5.9 E12/L [facility] RBC size Nom (Bld) SEE MORPHOLOGY *NA* (05/07/24 5:33 AM) Invalid Interpretation Code [facility] WBC corrected for nucl RBC Auto (Bld) [#/Vol] 11.5 E9/L High 4.0 - 11.0 E9/L [facility] Hep Func Panelon 05-07-2024 Albumin [Mass/Vol] 3.3 g/dL Normal 3.3-5.0 [facility] Comment on above: Performed By: #### 2 [id number] #### [facility] [address] [place] [address] Albumin/Globulin (S) [Mass conc ratio] 1.2 Normal 1.1-2.2 [facility] Comment on above: Performed By: #### 2 [id number] #### [facility] [address] [place] [address] ALP [Catalytic activity/Vol] 58 Int._Unit/L Normal 21-98 [facility] Comment on above: Performed By: #### 2 [id number] #### [facility] [address] [place] [address] ALT No additional P-5'-P [Catalytic activity/Vol] 8 Int._Unit/L Normal 6-46 [facility] Comment on above: Performed By: #### 2 [id number] #### [facility] [address] [place] [address] AST [Catalytic activity/Vol] 15 Int._Unit/L Normal 5-43 [facility] Comment on above: Performed By: #### 2 [id number] #### [facility] [address] [place] [address] Bilirubin [Mass/Vol] 0.6 mg/dL Normal 0.0-1.1 [facility] Comment on above: Performed By: #### 2 [id number] #### [facility] [address] [place] [address] Bilirubin.direct [Mass/Vol] 0.1 mg/dL Normal 0.0-0.4 [facility] Comment on above: Performed By: #### 2 [id number] #### [facility] [address] [place] [address] Bilirubin.indirect [Mass or moles/Vol] 0.5 mg/dL Normal 0.1-0.9 [facility] Comment on above: Performed By: #### 2 [id number] #### [facility] [address] [place] [address] Globulin (S) [Mass/Vol] 2.7 g/dL Normal 1.4-4.0 [facility] Comment on above: Performed By: #### 2 [id number] #### [facility] [address] [place] [address] Protein [Mass/Vol] 6.0 g/dL Normal 6.0-7.8 [facility] Comment on above: Performed By: #### 2 [id number] #### [facility] [address] [place] [address] eGFRon 05-07-2024 eGFR 89 mL/min/1.73 m2 Normal >=59 [facility] Comment on above: Performed By: #### 1 [id number] #### [facility] [address] [place] [address] ABO/Rh History Checkon 05-06 ABO/Rh History Check Type verified by second s Normal [facility] Comment on above: Performed By: #### 1 [id number] #### [facility] [address] [place] [address] ABO/Rh Retypeon 05-06-2024 ABO/Rh Retype Interp Positive Invalid Interpretation Code [facility] Comment on above: Performed By: #### 1 [id number] #### [facility] [address] [place] [address] BLOOD BANKOrdered By: Malena Cifuentes on 05-06-2024 ABO/Rh Retype Interp Positive Invalid Interpretation Code [facility] BB Subsection BMPon 05-06-2024 Anion gap [Moles/Vol] 8 mmol/L Normal 6-16 [facility] Comment on above: Performed By: #### 2 [id number] #### [facility] [address] [place] [address] Calcium [Mass/Vol] 8.3 mg/dL Low 8.9-11.1 [facility] Comment on above: Performed By: #### 2 [id number] #### [facility] [address] [place] [address] Chloride [Moles/Vol] 104 mmol/L Normal 101-111 [facility] Comment on above: Performed By: #### 2 [id number] #### [facility] [address] [place] [address] CO2 [Moles/Vol] 27 mmol/L Normal 21-[address] [facility] Comment on above: Performed By: #### 2 [id number] #### [facility] [address] [place] [address] Creatinine [Mass/Vol] 0.8 mg/dL Normal 0.5-1.3 [facility] Comment on above: Performed By: #### 2 [id number] #### [facility] [address] [place] [address] Glucose [Mass/Vol] 136 mg/dL Normal 55-199 [facility] Comment on above: Performed By: #### 2 [id number] #### [facility] [address] [place] [address] Potassium [Moles/Vol] 3.9 mmol/L Normal 3.5-5.3 [facility] Comment on above: Performed By: #### 2 [id number] #### [facility] [address] [place] [address] Sodium [Moles/Vol] 135 mmol/L Normal 135-145 [facility] Comment on above: Performed By: #### 2 [id number] #### [facility] [address] [place] [address] Urea nitrogen [Mass/Vol] 17 mg/dL Normal 5-21 [facility] Comment on above: Performed By: #### 2 [id number] #### [facility] [address] [place] [address] Urea nitrogen/Creatinine [Mass ratio] 21 No Units High 10-20 [facility] Comment on above: Performed By: #### 2 [id number] #### [facility] [address] [place] [address] CBC w/ Auto Diffon 5 Acanthocytes LM Ql (Bld) PRESENT Invalid Interpretation Code [facility] Comment on above: Performed By: #### 2 [id number] #### [facility] [address] [place] [address] Basophils/100 WBC (Bld) 0.2 % Normal 0.0-2.0 [facility] Comment on above: Performed By: #### 2 [id number] #### [facility] [address] [place] [address] Basophils/Leukocytes Auto (Bld) [Pure # fraction] 0.0 E9/L Normal 0.0-0.2 [facility] Comment on above: Performed By: #### 2 [id number] #### [facility] [address] [place] [address] Eosinophils (Bld) [#/Vol] 0.0 E9/L Normal 0.0-0.5 [facility] Comment on above: Performed By: #### 2 [id number] #### [facility] [address] [place] [address] Eosinophils/100 WBC (Bld) 0.0 % Normal 0.0-8.0 [facility] Comment on above: Performed By: #### 2 [id number] #### [facility] [address] [place] [address] Erythrocyte distribution width (RBC) [Ratio] 19.4 % High 10.9-14.2 [facility] Comment on above: Performed By: #### 2 [id number] #### [facility] [address] [place] [address] Hematocrit (Bld) [Volume fraction] 25.5 % Low 37.7-49.0 [facility] Comment on above: Performed By: #### 2 [id number] #### [facility] [address] [place] [address] Hemoglobin (Bld) [Mass/Vol] 8.2 g/dL Low 13.5-17.5 [facility] Comment on above: Performed By: #### 2 [id number] #### [facility] [address] [place] [address] Hypochromia Auto Ql (Bld) PRESENT Invalid Interpretation Code [facility] Comment on above: Performed By: #### 2 [id number] #### [facility] [address] [place] [address] Lymphocytes (Bld) [#/Vol] 0.8 E9/L Low 1.0-4.0 [facility] Comment on above: Performed By: #### 2 [id number] #### [facility] [address] [place] [address] Lymphocytes/100 WBC (Bld) 4.0 % Low 14.0-50.0 [facility] Comment on above: Performed By: #### 2 [id number] #### [facility] [address] [place] [address] MCH (RBC) [Entitic mass] 23.2 pg Low 27.0-34.0 [facility] Comment on above: Performed By: #### 2 [id number] #### [facility] [address] [place] [address] MCHC (RBC) [Mass/Vol] 32.0 g/dL Normal 31.4-36.0 [facility] Comment on above: Performed By: #### 2 [id number] #### [facility] [address] [place] [address] MCV (RBC) [Entitic vol] 72.6 fL Low 80.0-100.0 [facility] Comment on above: Performed By: #### 2 [id number] #### [facility] [address] [place] [address] Microcytes Ql (Bld) PRESENT Invalid Interpretation Code [facility] Comment on above: Performed By: #### 2 [id number] #### [facility] [address] [place] [address] Monocytes (Bld) [#/Vol] 1.6 E9/L High 0.2-1.0 [facility] Comment on above: Performed By: #### 2 [id number] #### [facility] [address] [place] [address] Neutrophils (Bld) [#/Vol] 17.4 E9/L High 2.0-7.5 [facility] Comment on above: Performed By: #### 2 [id number] #### [facility] [address] [place] [address] Neutrophils/100 WBC (Bld) 87.7 % High 36.0-75.0 [facility] Comment on above: Performed By: #### 2 [id number] #### [facility] [address] [place] [address] Ovalocytes LM Ql (Bld) PRESENT Invalid Interpretation Code [facility] Comment on above: Performed By: #### 2 [id number] #### [facility] [address] [place] [address] Platelet 109.0 E9/L Low 150.0-500.0 [facility] Comment on above: Performed By: #### 2 [id number] #### [facility] [address] [place] [address] Platelet mean volume (Bld) [Entitic vol] 8.8 fL Normal 6.4-10.8 [facility] Comment on above: Performed By: #### 2 [id number] #### [facility] [address] [place] [address] Poikilocytosis Auto Ql (Bld) PRESENT Invalid Interpretation Code [facility] Comment on above: Performed By: #### 2 [id number] #### [facility] [address] [place] [address] RBC (Bld) [#/Vol] 3.5 E12/L Low 4.3-5.9 [facility] Comment on above: Performed By: #### 2 [id number] #### [facility] [address] [place] [address] RBC size Nom (Bld) SEE MORPHOLOGY Invalid Interpretation Code [facility] Comment on above: Performed By: #### 2 [id number] #### [facility] [address] [place] [address] WBC corrected for nucl RBC Auto (Bld) [#/Vol] 19.9 E9/L High 4.0-11.[address] [facility] Comment on above: Performed By: #### 2 [id number] #### [facility] [address] [place] [address] CHEMISTRYOrdered By: Lab ROP User on 05-06-2024 Glucose [Mass/Vol] 143 mg/dL High 55 - 99 mg/dL [facility] POC Subsection Comment on above: Result Comment: Margarito mohan RN/ POC Username YVETTE HUITRON Invalid Interpretation Code [facility] POC Subsection Sodium [Moles/Vol] [id number] mmol/L Invalid Interpretation Code [facility] POC Subsection Sodium [Moles/Vol] [id number] mmol/L Invalid Interpretation Code [facility] POC Subsection CHEMISTRYOrdered By: SYSTEM SYSTEM on 05-06-2024 Albumin [Mass/Vol] 3.2 g/dL Low 3.3 - 5.0 gm/dL Remisol Chem Albumin/Globulin [Mass ratio] 1.2 {ratio} Normal 1.1 - 2.2 Rem[facility] Chem ALP [Catalytic activity/Vol] 54 [iU]/d Normal 21 - 98 Int._Unit/L Remisol Chem ALT No additional P-5'-P [Catalytic activity/Vol] 9 [iU]/d Normal 6 - 46 Int._Unit/L Remisol Chem Anion gap [Moles/Vol] 8 mmol/L Normal 6 - 16 mEq/L R emisol Chem AST [Catalytic activity/Vol] 16 [iU]/d Normal 5 - 43 Int._Unit/L Rem[facility] Chem Bilirubin [Mass/Vol] 0.6 mg/dL Normal 0.0 - 1 .1 mg/dL Rem[facility] Chem Bilirubin.direct [Mass/Vol] 0.1 mg/dL Normal 0.0 - 0.4 mg/dL Rem[facility] Chem Bilirubin.indirect [Mass or moles/Vol] 0.5 mg/dL Normal 0.1 - 0.9 mg/dL [facility] Chem Calcium [Mass/Vol] 8.3 mg/dL Low 8.9 - 11. 1 mg/dL [facility] Chem Chloride [Moles/Vol] 104 mmol/L Normal 101 - 1 11 mmol/L [facility] Chem CO2 [Moles/Vol] 27 mmol/L Normal 21 - 31 mmol/L [facility] Chem Creatinine [Mass/Vol] 0.8 mg/dL Normal 0.5 - 1.3 mg/dL [facility] Chem eGFR 89 mL/min/1.73 m2 Normal >=59mL/min /1 .73 m2 [facility] Chem Globulin (S) [Mass/Vol] 2.6 g/dL Normal 1.4 - 4.0 gm/dL [facility] Chem Glucose [Mass/Vol] 136 mg/dL Normal 55 - 199 mg/dL [facility] Chem Potassium [Moles/Vol] 3.9 mmol/L Normal 3.5 - 5.3 mmol/L Remisol Chem Protein [Mass/Vol] 5.8 g/dL Low 6.0 - 7.8 gm/dL [facility] Chem Sodium [Moles/Vol] 135 mmol/L Normal 135 - 145 mmol/L Rem[facility] Chem Urea nitrogen [Mass/Vol] 17 mg/dL Normal 5 - 21 mg/dL Rem[facility] Chem Urea nitrogen/Creatinine [Mass ratio] 21 mg/mg High 10 - 20 Remisol Chem COAGULATIONOrdered By: Aye Rivera on 05-06-2024 aPTT Coag (PPP) [Time] 34.2 s Normal 25.1 - 36.5 second(s) [facility] Auto Coag Comment on above: Interpretive Data: Rizwan sawant 15 days - 4 weeks 1 - 5 months 6 - 11 months 1 - 5 years 6 - 10 years 11 - 17 years PTT Mean: 35.4 (27.6-45.6) Mean: 33.5 (24.8-40.7) Mean: 32.4 (25.1-40.7) Mean: 31.6 (24.0-39.2) Mean: 31.6 (26.9-38.7) Mean: 31.0 (24.6-38.4) Pediatric Reference ranges were obtained from a study by Kai Aguilar et al. prepared from 1437 samples obtained at 7 different centers using the same coagulation reagent and instrumentation as [facility]. Currently there are no coagulation studies available worldwide for children to 14 days, and no normal ranges. Heparin therapeutic range (represented by Anti-Factor Xa activity of 0.2 - 0.4 U/mL) corresponds to PTT of 56.6 - 109.0 sec. INR Coag (PPP) [Relative time] 1.36 {INR} Invalid Interpretation Code [facility] Auto Coag Comment on above: Interpretive Data: I NR results are specifically intended to assess patients stabilized on long-term Anticoagulation therapy suggested INR s Less Intensive Anticoagulation 2.0 3.0 Conventional Range 3.0 4.5 PT Coag (PPP) [Time] 15.3 s High 9.4 - 1 2.5 second(s) [facility] Auto Coag Comment on above: Interpretive Data: 1 5 days - 4 weeks 1 - 5 months 6 -11 months 1-5 years 6-10 years 11 -17 years Mean: 11.2 (9.5-12.6) Mean: 11.0 (9.7-12.8) Mean: 11.0 (9.8-13.0) Mean: 11.3 (9.9-13.4) Mean: 11.7 (10.0-14.6) Mean: 11.8 (10.0 - 14.1) Pediatric Reference ranges were obtained from a study by genevieve Ortiz al. prepared from 1437 samples obtained at 7 different centers using the same coagulation reagent and instrumentation as [facility]. Currently there are no coagulation studies available worldwide for children to 14 days, and no normal ranges. Capillary Glucose POCon 04-26 Glucose [Mass/Vol] 143 mg/dL High 55-99 [facility] Comment on above: Result Comment: Margarito PETERS Performed By: #### 2 [id number] #### [facility] [address] [place] [address] Glucose [Mass/Vol] 120 mg/dL High 55-99 [facility] Comment on above: Result Comment: Margarito PETERS Performed By: #### 2 [id number] #### [facility] [address] [place] [address] Glucose [Mass/Vol] 110 mg/dL High 55-99 [facility] Comment on above: Result Comment: Margarito PETERS Performed By: #### 2 [id number] #### [facility] [address] [place] [address] Glucose [Mass/Vol] 108 mg/dL High 55-99 [facility] Comment on above: Result Comment: Margarito mohan RN/ Performed By: #### 2 [id number] #### [facility] [address] [place] [address] HEMATOLOGYOrdered By: SYSTEM SYSTEM on 05-06-2024 Acanthocytes LM Ql (Bld) PRESENT *NA* (05/06/24 6:18 AM) Invalid Interpretation Code Remisol Heme Basophils/100 WBC (Bld) 0.2 % Normal 0.0 - 2.0 % [facility] Heme Basophils/Leukocytes Auto (Bld) [Pure # fraction] 0.0 E9/L Normal 0.0 - 0.2 E9/L [facility] Heme Eosinophils (Bld) [#/Vol] 0.0 E9/L Normal 0.0 - 0.5 E9/L [facility] Heme Eosinophils/100 WBC (Bld) 0.0 % Normal 0.0 - 8.0 % [facility]e Erythrocyte distribution width (RBC) [Ratio] 19.4 % High 10.9 - 14.2 % [facility]e Hematocrit (Bld) [Volume fraction] 25.5 % Low 37.7 - 49.0 % [facility]e Hemoglobin (Bld) [Mass/Vol] 8.2 g/dL Low 13.5 - 17.5 gm/dL [facility] Heme Hypochromia Auto Ql (Bld) PRESENT *NA* (05/06/24 6:18 AM) Invalid Interpretation Code Rem[facility] Heme Lymphocytes (Bld) [#/Vol] 0.8 E9/L Low 1.0 - 4.0 E9/L [facility] Heme Lymphocytes/100 WBC (Bld) 4.0 % Low 14.0 - 50.0 % [facility] Heme MCH (RBC) [Entitic mass] 23.2 pg Low 27.0 - 34.0 pg Rem[facility] Heme MCHC (RBC) [Mass/Vol] 32.0 g/dL Normal 31.4 - 36.0 gm/dL [facility]e MCV (RBC) [Entitic vol] 72.6 fL Low 80.0 - 100.0 fL [facility] Heme Microcytes Ql (Bld) PRESENT *NA* (05/06/24 6:18 AM) Invalid Interpretation Code Rem[facility] Heme Monocytes (Bld) [#/Vol] 1.6 E9/L High 0.2 - 1.0 E9/L [facility] Heme Monocytes/100 WBC (Bld) 8.1 % Normal 4.0 - 14.0 % [facility] Heme Neutrophils (Bld) [#/Vol] 17.4 E9/L High 2.0 - 7.5 E9/L [facility]e Neutrophils/100 WBC (Bld) 87.7 % High 36.0 - 75.0 % [facility]e Ovalocytes LM Ql (Bld) PRESENT *NA* (05/06/24 6:18 AM) Invalid Interpretation Code [facility] Heme Platelet 109.0 E9/L Low 150.0 - 500.0 E9/L [facility] Heme Platelet mean volume (Bld) [Entitic vol] 8.8 fL Normal 6.4 - 10.8 fL [facility]e Poikilocytosis Auto Ql (Bld) PRESENT *NA* (05/06/24 6:18 AM) Invalid Interpretation Code Rem[facility] Heme RBC (Bld) [#/Vol] 3.5 E12/L Low 4.3 - 5.9 E12/L Rem[facility] Heme RBC size Nom (Bld) SEE MORPHOLOGY *NA* (05/06/24 6:18 AM) Invalid Interpretation Code [facility] Heme WBC corrected for nucl RBC Auto (Bld) [#/Vol] 19.9 E9/L High 4.0 - 11.0 E9/L [facility] Heme Hep Func Panelon 05-06-2024 Albumin [Mass/Vol] 3.2 g/dL Low 3.3-5.0 [facility] Comment on above: Performed By: #### 2 [id number] #### [facility] [address] [place] [address] Albumin/Globulin (S) [Mass conc ratio] 1.2 Normal 1.1-2.2 [facility] Comment on above: Performed By: #### 2 [id number] #### [facility] [address] [place] [address] ALP [Catalytic activity/Vol] 54 Int._Unit/L Normal 21-98 [facility] Comment on above: Performed By: #### 2 [id number] #### [facility] [address] [place] [address] ALT No additional P-5'-P [Catalytic activity/Vol] 9 Int._Unit/L Normal 6-46 [facility] Comment on above: Performed By: #### 2 [id number] #### [facility] [address] [place] [address] AST [Catalytic activity/Vol] 16 Int._Unit/L Normal 5-43 [facility] Comment on above: Performed By: #### 2 [id number] #### [facility] [address] [place] [address] Bilirubin [Mass/Vol] 0.6 mg/dL Normal 0.0-1.1 [facility] Comment on above: Performed By: #### 2 [id number] #### [facility] [address] [place] [address] Bilirubin.direct [Mass/Vol] 0.1 mg/dL Normal 0.0-0.4 [facility] Comment on above: Performed By: #### 2 [id number] #### [facility] [address] [place] [address] Bilirubin.indirect [Mass or moles/Vol] 0.5 mg/dL Normal 0.1-0.9 [facility] Comment on above: Performed By: #### 2 [id number] #### [facility] [address] [place] [address] Globulin (S) [Mass/Vol] 2.6 g/dL Normal 1.4-4.0 [facility] Comment on above: Performed By: #### 2 [id number] #### [facility] [address] [place] [address] Protein [Mass/Vol] 5.8 g/dL Low 6.0-7.8 [facility] Comment on above: Performed By: #### 2 [id number] #### [facility] [address] [place] [address] PT & PTTon 05-06-2024 aPTT Coag (PPP) [Time] 34.2 second(s) Normal 25.1-36.5 [facility] Comment on above: Result Comment: Para meter 15 days - 4 weeks 1 - 5 months 6 - 11 months 1 - 5 years 6 - 10 years 11 - 17 years PTT Mean: 35.4 (27.6-45.6) Mean: 33.5 (24.8-40.7) Mean: 32.4 (25.1-40.7) Mean: 31.6 (24.0-39.2) Mean: 31.6 (26.9-38.7) Mean: 31.0 (24.6-38.4) Pediatric Reference ranges were obtained from a study by Kai Aguilar et al. prepared from 1437 samples obtained at 7 different centers using the same coagulation reagent and instrumentation as [facility]. Currently there are no coagulation studies available worldwide for children to 14 days, and no normal ranges. Heparin therapeutic range (represented by Anti-Factor Xa activity of 0.2 - 0.4 U/mL) corresponds to PTT of 56.6 - 109.0 sec. Performed By: #### 1 [id number] #### [facility] [address] [place] [address] INR Coag (PPP) [Relative time] 1.36 {INR} Invalid Interpretation Code [facility] Comment on above: Result Comment: INR results are specifically intended to assess patients stabilized on long-term Anticoagulation therapy suggested INR???s ???Less Intensive Anticoagulation??? 2.0 ??? 3.0 Conventional Range 3.0 ??? 4.5 Performed By: #### 1 [id number] #### [facility] [address] [place] [address] PT Coag (PPP) [Time] 15.3 second(s) High 9.4-12.5 [facility] Comment on above: Result Comment: 15 d ays - 4 weeks 1 - 5 months 6 -11 months 1- 5 years 6-10 years 11 -17 years Mean: 11.2 (9.5-12.6) Mean: 11.0 (9.7-12.8) Mean: 11.0 (9.8-13.0) Mean: 11.3 (9.9-13.4) Mean: 11.7 (10.0-14.6) Mean: 11.8 (10.0 - 14.1) Pediatric Reference ranges were obtained from a study by Kai Aguilar et al. prepared from 1437 samples obtained at 7 different centers using the same coagulation reagent and instrumentation as [facility]. Currently there are no coagulation studies available worldwide for children to 14 days, and no normal ranges. Performed By: #### 1 [id number] #### [facility] [address] [place] [address] eGFRon 05-06-2024 eGFR 89 mL/min/1.73 m2 Normal >=59 [facility] Comment on above: Performed By: #### 1 [id number] #### [facility] [address] [place] [address] ABO/Rhon 05-05-2024 ABO/Rh Positive Invalid Interpretation Code [facility] Comment on above: Performed By: #### 2 [id number] #### [facility] [address] [place] [address] ABSCon 05-05-2024 ABSC Gel Interp Negative Normal [facility] Comment on above: Performed By: #### 1 [id number] #### [facility] [address] [place] [address] AZTREONAM:SUSC:PT:ISOLATE:OR DQN:MICOrdered By: Erin Jonsa on 05-05-2024 Aztreonam LAMAR [Susc] 1+ Escherichia coli 1+ Escherichia coli #2 Different Biotype. [facility] Aztreonam LAMAR [Susc]Ordered By: Erin Jonas on 05-05-2024 Escherichia coli Escherichia coli Fi [facility] GS Occasional Gram Negative Rods [facility] BLOOD BANKOrdered By: Cuauhtemoc Moe on 05-05-2024 ABO/Rh Interp Positive Invalid Interpretation Code [facility] BB Subsection ABSC Gel Interp Negative (05/05/24 3:55 AM) Normal [facility] BB Subsection BMPon 05-05-2024 Anion gap [Moles/Vol] 11 mmol/L Normal 6-16 [facility] Comment on above: Performed By: #### 2 [id number] #### [facility] [address] [place] [address] Calcium [Mass/Vol] 8.9 mg/dL Normal 8.9-11.1 [facility] Comment on above: Performed By: #### 2 [id number] #### [facility] [address] [place] [address] Chloride [Moles/Vol] 101 mmol/L Normal 101-111 [facility] Comment on above: Performed By: #### 2 [id number] #### [facility] [address] [place] [address] CO2 [Moles/Vol] 27 mmol/L Normal 21-[address] [facility] Comment on above: Performed By: #### 2 [id number] #### [facility] [address] [place] [address] Creatinine [Mass/Vol] 0.8 mg/dL Normal 0.5-1.3 [facility] Comment on above: Performed By: #### 2 [id number] #### [facility] [address] [place] [address] Glucose [Mass/Vol] 129 mg/dL Normal 55-199 [facility] Comment on above: Performed By: #### 2 [id number] #### [facility] [address] [place] [address] Potassium [Moles/Vol] 4.2 mmol/L Normal 3.5-5.3 [facility] Comment on above: Performed By: #### 2 [id number] #### [facility] [address] [place] [address] Sodium [Moles/Vol] 135 mmol/L Normal 135-145 [facility] Comment on above: Performed By: #### 2 [id number] #### [facility] [address] [place] [address] Urea nitrogen [Mass/Vol] 19 mg/dL Normal 5-21 [facility] Comment on above: Performed By: #### 2 [id number] #### [facility] [address] [place] [address] Urea nitrogen/Creatinine [Mass ratio] 24 No Units High 10-20 [facility] Comment on above: Performed By: #### 2 [id number] #### [facility] [address] [place] [address] Blood Bank ID#on 05-05-2024 BBID# [id number] Invalid Interpretation Code [facility] Comment on above: Performed By: #### 1 [id number] #### [facility] [address] [place] [address] CBC w/ Auto Diffon 5 Basophils/100 WBC (Bld) 0.3 % Normal 0.0-2.0 [facility] Comment on above: Performed By: #### 2 [id number] #### [facility] [address] [place] [address] Basophils/Leukocytes Auto (Bld) [Pure # fraction] 0.1 E9/L Normal 0.0-0.2 [facility] Comment on above: Performed By: #### 2 [id number] #### [facility] [address] [place] [address] Eosinophils (Bld) [#/Vol] 0.0 E9/L Normal 0.0-0.5 [facility] Comment on above: Performed By: #### 2 [id number] #### [facility] [address] [place] [address] Eosinophils/100 WBC (Bld) 0.0 % Normal 0.0-8.0 [facility] Comment on above: Performed By: #### 2 [id number] #### [facility] [address] [place] [address] Erythrocyte distribution width (RBC) [Ratio] 20.0 % High 10.9-14.2 [facility] Comment on above: Performed By: #### 2 [id number] #### [facility] [address] [place] [address] Hematocrit (Bld) [Volume fraction] 28.1 % Low 37.7-49.0 [facility] Comment on above: Performed By: #### 2 [id number] #### [facility] [address] [place] [address] Hemoglobin (Bld) [Mass/Vol] 8.9 g/dL Low 13.5-17.5 [facility] Comment on above: Performed By: #### 2 [id number] #### [facility] [address] [place] [address] Lymphocytes (Bld) [#/Vol] 0.3 E9/L Low 1.0-4.0 [facility] Comment on above: Performed By: #### 2 [id number] #### [facility] [address] [place] [address] Lymphocytes/100 WBC (Bld) 1.4 % Low 14.0-50.0 [facility] Comment on above: Performed By: #### 2 [id number] #### [facility] [address] [place] [address] MCH (RBC) [Entitic mass] 23.1 pg Low 27.0-34.0 [facility] Comment on above: Performed By: #### 2 [id number] #### [facility] [address] [place] [address] MCHC (RBC) [Mass/Vol] 31.8 g/dL Normal 31.4-36.0 [facility] Comment on above: Performed By: #### 2 [id number] #### [facility] [address] [place] [address] MCV (RBC) [Entitic vol] 72.7 fL Low 80.0-100.0 [facility] Comment on above: Performed By: #### 2 [id number] #### [facility] [address] [place] [address] Monocytes (Bld) [#/Vol] 1.6 E9/L High 0.2-1.0 [facility] Comment on above: Performed By: #### 2 [id number] #### [facility] [address] [place] [address] Neutrophils (Bld) [#/Vol] 22.6 E9/L High 2.0-7.5 [facility] Comment on above: Performed By: #### 2 [id number] #### [facility] [address] [place] [address] Neutrophils/100 WBC (Bld) 91.8 % High 36.0-75.0 [facility] Comment on above: Performed By: #### 2 [id number] #### [facility] [address] [place] [address] Platelet mean volume (Bld) [Entitic vol] 9.3 fL Normal 6.4-10.8 [facility] Comment on above: Performed By: #### 2 [id number] #### [facility] [address] [place] [address] Platelets (Bld) [#/Vol] 125.0 E9/L Low 150.0-500.0 [facility] Comment on above: Performed By: #### 2 [id number] #### [facility] [address] [place] [address] RBC (Bld) [#/Vol] 3.9 E12/L Low 4.3-5.9 [facility] Comment on above: Performed By: #### 2 [id number] #### [facility] [address] [place] [address] WBC corrected for nucl RBC Auto (Bld) [#/Vol] 24.7 E9/L High 4.0-11.[address] [facility] Comment on above: Performed By: #### 2 [id number] #### [facility] [address] [place] [address] Acanthocytes LM Ql (Bld) PRESENT Invalid Interpretation Code [facility] Comment on above: Performed By: #### 2 [id number] #### [facility] [address] [place] [address] Basophils/100 WBC (Bld) 0.2 % Normal 0.0-2.0 [facility] Comment on above: Performed By: #### 2 [id number] #### [facility] [address] [place] [address] Basophils/Leukocytes Auto (Bld) [Pure # fraction] 0.0 E9/L Normal 0.0-0.2 [facility] Comment on above: Performed By: #### 2 [id number] #### [facility] [address] [place] [address] Elliptocytes LM Ql (Bld) PRESENT Invalid Interpretation Code [facility] Comment on above: Performed By: #### 2 [id number] #### [facility] [address] [place] [address] Eosinophils (Bld) [#/Vol] 0.0 E9/L Normal 0.0-0.5 [facility] Comment on above: Performed By: #### 2 [id number] #### [facility] [address] [place] [address] Eosinophils/100 WBC (Bld) 0.0 % Normal 0.0-8.0 [facility] Comment on above: Performed By: #### 2 [id number] #### [facility] [address] [place] [address] Erythrocyte distribution width (RBC) [Ratio] 19.9 % High 10.9-14.2 [facility] Comment on above: Performed By: #### 2 [id number] #### [facility] [address] [place] [address] Hematocrit (Bld) [Volume fraction] 30.2 % Low 37.7-49.0 [facility] Comment on above: Performed By: #### 2 [id number] #### [facility] [address] [place] [address] Hemoglobin (Bld) [Mass/Vol] 9.6 g/dL Low 13.5-17.5 [facility] Comment on above: Performed By: #### 2 [id number] #### [facility] [address] [place] [address] Hypochromia Auto Ql (Bld) PRESENT Invalid Interpretation Code [facility] Comment on above: Performed By: #### 2 [id number] #### [facility] [address] [place] [address] Lymphocytes (Bld) [#/Vol] 0.9 E9/L Low 1.0-4.0 [facility] Comment on above: Performed By: #### 2 [id number] #### [facility] [address] [place] [address] Lymphocytes/100 WBC (Bld) 4.4 % Low 14.0-50.0 [facility] Comment on above: Performed By: #### 2 [id number] #### [facility] [address] [place] [address] MCH (RBC) [Entitic mass] 23.2 pg Low 27.0-34.0 [facility] Comment on above: Performed By: #### 2 [id number] #### [facility] [address] [place] [address] MCHC (RBC) [Mass/Vol] 31.8 g/dL Normal 31.4-36.0 [facility] Comment on above: Performed By: #### 2 [id number] #### [facility] [address] [place] [address] MCV (RBC) [Entitic vol] 72.9 fL Low 80.0-100.0 [facility] Comment on above: Performed By: #### 2 [id number] #### [facility] [address] [place] [address] Microcytes Ql (Bld) PRESENT Invalid Interpretation Code [facility] Comment on above: Performed By: #### 2 [id number] #### [facility] [address] [place] [address] Monocytes (Bld) [#/Vol] 2.6 E9/L High 0.2-1.0 [facility] Comment on above: Result Comment: Revi ew slide for monocytosis Performed By: #### 2 [id number] #### [facility] [address] [place] [address] Neutrophils (Bld) [#/Vol] 17.2 E9/L High 2.0-7.5 [facility] Comment on above: Performed By: #### 2 [id number] #### [facility] [address] [place] [address] Neutrophils/100 WBC (Bld) 82.7 % High 36.0-75.0 [facility] Comment on above: Performed By: #### 2 [id number] #### [facility] [address] [place] [address] Platelet mean volume (Bld) [Entitic vol] 9.6 fL Normal 6.4-10.8 [facility] Comment on above: Performed By: #### 2 [id number] #### [facility] [address] [place] [address] Platelets (Bld) [#/Vol] 127.0 E9/L Low 150.0-500.0 [facility] Comment on above: Performed By: #### 2 [id number] #### [facility] [address] [place] [address] RBC (Bld) [#/Vol] 4.1 E12/L Low 4.3-5.9 [facility] Comment on above: Performed By: #### 2 [id number] #### [facility] [address] [place] [address] RBC size Nom (Bld) SEE MORPHOLOGY Invalid Interpretation Code [facility] Comment on above: Performed By: #### 2 [id number] #### [facility] [address] [place] [address] WBC corrected for nucl RBC Auto (Bld) [#/Vol] 20.8 E9/L High 4.0-11.[address] [facility] Comment on above: Performed By: #### 2 [id number] #### [facility] [address] [place] [address] CHEMISTRYOrdered By: SYSTEM SYSTEM on 05-05-2024 Albumin [Mass/Vol] 3.6 g/dL Normal 3.3 - 5.0 gm/dL Remisol Chem Albumin/Globulin [Mass ratio] 1.3 {ratio} Normal 1.1 - 2.2 Remisol Chem ALP [Catalytic activity/Vol] 64 [iU]/d Normal 21 - 98 Int._Unit/L Remisol Chem ALT No additional P-5'-P [Catalytic activity/Vol] 9 [iU]/d Normal 6 - 46 Int._Unit/L Remisol Chem Anion gap [Moles/Vol] 11 mmol/L Normal 6 - 16 mEq/L R emisol Chem AST [Catalytic activity/Vol] 13 [iU]/d Normal 5 - 43 Int._Unit/L Remisol Chem Bilirubin [Mass/Vol] 1.6 mg/dL High 0.0 - 1 .1 mg/dL Remisol Chem Bilirubin.direct [Mass/Vol] 0.3 mg/dL Normal 0.0 - 0.4 mg/dL Remisol Chem Bilirubin.indirect [Mass or moles/Vol] 1.3 mg/dL High 0.1 - 0.9 mg/dL Remisol Chem Calcium [Mass/Vol] 8.9 mg/dL Normal 8.9 - 11. 1 mg/dL Remisol Chem Chloride [Moles/Vol] 101 mmol/L Normal 101 - 1 11 mmol/L Remisol Chem CO2 [Moles/Vol] 27 mmol/L Normal 21 - 31 mmol/L Remisol Chem Creatinine [Mass/Vol] 0.8 mg/dL Normal 0.5 - 1.3 mg/dL Remisol Chem eGFR 89 mL/min/1.73 m2 Normal >=59mL/min /1 .73 m2 Remisol Chem Globulin (S) [Mass/Vol] 2.8 g/dL Normal 1.4 - 4.0 gm/dL Remisol Chem Glucose [Mass/Vol] 129 mg/dL Normal 55 - 199 mg/dL Remisol Chem Potassium [Moles/Vol] 4.2 mmol/L Normal 3.5 - 5.3 mmol/L Remisol Chem Protein [Mass/Vol] 6.4 g/dL Normal 6.0 - 7.8 gm/dL Remisol Chem Sodium [Moles/Vol] 135 mmol/L Normal 135 - 145 mmol/L Remisol Chem Urea nitrogen [Mass/Vol] 19 mg/dL Normal 5 - 21 mg/dL Remisol Chem Urea nitrogen/Creatinine [Mass ratio] 24 mg/mg High 10 - 20 Remisol Chem COAGULATIONOrdered By: Drew patricia Kelton on 05-05-2024 aPTT Coag (PPP) [Time] 31.3 s Normal 25.1 - 36.5 second(s) [facility] Auto Coag Comment on above: Interpretive Data: P jese 15 days - 4 weeks 1 - 5 months 6 - 11 months 1 - 5 years 6 - 10 years 11 - 17 years PTT Mean: 35.4 (27.6-45.6) Mean: 33.5 (24.8-40.7) Mean: 32.4 (25.1-40.7) Mean: 31.6 (24.0-39.2) Mean: 31.6 (26.9-38.7) Mean: 31.0 (24.6-38.4) Pediatric Reference ranges were obtained from a study by roger Ortiz prepared from 1437 samples obtained at 7 different centers using the same coagulation reagent and instrumentation as [facility]. Currently there are no coagulation studies available worldwide for children to 14 days, and no normal ranges. Heparin therapeutic range (represented by Anti-Factor Xa activity of 0.2 - 0.4 U/mL) corresponds to PTT of 56.6 - 109.0 sec. INR Coag (PPP) [Relative time] 1.40 {INR} Invalid Interpretation Code [facility] Auto Coag Comment on above: Interpretive Data: I NR results are specifically intended to assess patients stabilized on long-term Anticoagulation therapy suggested INR s Less Intensive Anticoagulation 2.0 3.0 Conventional Range 3.0 4.5 PT Coag (PPP) [Time] 15.7 s High 9.4 - 1 2.5 second(s) [facility] Auto Coag Comment on above: Interpretive Data: 1 5 days - 4 weeks 1 - 5 months 6 -11 months 1 5 years 6 10 years 11 -17 years Mean: 11.2 (9.5 12.6) Mean: 11.0 (9.7 12.8) Mean: 11.0 (9.8 13.0) Mean: 11.3 (9.9 13.4) Mean: 11.7 (10.0 14.6) Mean: 11.8 (10.0 - 14.1) Pediatric Reference ranges were obtained from a study by roger Ortiz prepared from 1437 samples obtained at 7 different centers using the same coagulation reagent and instrumentation as [facility]. Currently there are no coagulation studies available worldwide for children to 14 days, and no normal ranges. Extra Bernard 05-05-2024 WB Tube Collected Yes Invalid Interpretation Code [facility] Comment on above: Performed By: #### 1 [id number] #### [facility] [address] [place] [address] HEMATOLOGYOrdered By: SYSTEM SYSTEM on 05-05-2024 Basophils/100 WBC (Bld) 0.3 % Normal 0.0 - 2.0 % Remisol Heme Basophils/Leukocytes Auto (Bld) [Pure # fraction] 0.1 E9/L Normal 0.0 - 0.2 E9/L Remisol Heme Eosinophils (Bld) [#/Vol] 0.0 E9/L Normal 0.0 - 0.5 E9/L Remisol Heme Eosinophils/100 WBC (Bld) 0.0 % Normal 0.0 - 8.0 % Remisol Heme Erythrocyte distribution width (RBC) [Ratio] 20.0 % High 10.9 - 14.2 % Remisol Heme Hematocrit (Bld) [Volume fraction] 28.1 % Low 37.7 - 49.0 % Remisol Heme Hemoglobin (Bld) [Mass/Vol] 8.9 g/dL Low 13.5 - 17.5 gm/dL Remisol Heme Lymphocytes (Bld) [#/Vol] 0.3 E9/L Low 1.0 - 4.0 E9/L Remisol Heme Lymphocytes/100 WBC (Bld) 1.4 % Low 14.0 - 50.0 % Remisol Heme MCH (RBC) [Entitic mass] 23.1 pg Low 27.0 - 34.0 pg Remisol Heme MCHC (RBC) [Mass/Vol] 31.8 g/dL Normal 31.4 - 36.0 gm/dL Remisol Heme MCV (RBC) [Entitic vol] 72.7 fL Low 80.0 - 100.0 fL Remisol Heme Monocytes (Bld) [#/Vol] 1.6 E9/L High 0.2 - 1.0 E9/L Remisol Heme Monocytes/100 WBC (Bld) 6.5 % Normal 4.0 - 14.0 % Remisol Heme Neutrophils (Bld) [#/Vol] 22.6 E9/L High 2.0 - 7.5 E9/L Remisol Heme Neutrophils/100 WBC (Bld) 91.8 % High 36.0 - 75.0 % Remisol Heme Platelet mean volume (Bld) [Entitic vol] 9.3 fL Normal 6.4 - 10.8 fL Remisol Heme Platelets (Bld) [#/Vol] 125.0 E9/L Low 150.0 - 500.0 E9/L Remisol Heme RBC (Bld) [#/Vol] 3.9 E12/L Low 4.3 - 5.9 E12/L Remisol Heme WBC corrected for nucl RBC Auto (Bld) [#/Vol] 24.7 E9/L High 4.0 - 11.0 E9/L Remisol Heme Acanthocytes LM Ql (Bld) PRESENT *NA* (05/05/24 3:55 AM) Invalid Interpretation Code Remisol Heme Elliptocytes LM Ql (Bld) PRESENT *NA* (05/05/24 3:55 AM) Invalid Interpretation Code Remisol Heme Hypochromia Auto Ql (Bld) PRESENT *NA* (05/05/24 3:55 AM) Invalid Interpretation Code Remisol Heme Microcytes Ql (Bld) PRESENT *NA* (05/05/24 3:55 AM) Invalid Interpretation Code Remisol Heme RBC size Nom (Bld) SEE MORPHOLOGY *NA* (05/05/24 3:55 AM) Invalid Interpretation Code Remisol Heme Hep Func Panelon 05-05-2024 Albumin [Mass/Vol] 3.6 g/dL Normal 3.3-5.0 [facility] Comment on above: Performed By: #### 2 [id number] #### [facility] [address] [place] [address] Albumin/Globulin (S) [Mass conc ratio] 1.3 Normal 1.1-2.2 [facility] Comment on above: Performed By: #### 2 [id number] #### [facility] [address] [place] [address] ALP [Catalytic activity/Vol] 64 Int._Unit/L Normal 21-98 [facility] Comment on above: Performed By: #### 2 [id number] #### [facility] [address] [place] [address] ALT No additional P-5'-P [Catalytic activity/Vol] 9 Int._Unit/L Normal 6-46 [facility] Comment on above: Performed By: #### 2 [id number] #### [facility] [address] [place] [address] AST [Catalytic activity/Vol] 13 Int._Unit/L Normal 5-43 [facility] Comment on above: Performed By: #### 2 [id number] #### [facility] [address] [place] [address] Bilirubin [Mass/Vol] 1.6 mg/dL High 0.0-1.1 [facility] Comment on above: Performed By: #### 2 [id number] #### [facility] [address] [place] [address] Bilirubin.direct [Mass/Vol] 0.3 mg/dL Normal 0.0-0.4 [facility] Comment on above: Performed By: #### 2 [id number] #### [facility] [address] [place] [address] Bilirubin.indirect [Mass or moles/Vol] 1.3 mg/dL High 0.1-0.9 [facility] Comment on above: Performed By: #### 2 [id number] #### [facility] [address] [place] [address] Globulin (S) [Mass/Vol] 2.8 g/dL Normal 1.4-4.0 [facility] Comment on above: Performed By: #### 2 [id number] #### [facility] [address] [place] [address] Protein [Mass/Vol] 6.4 g/dL Normal 6.0-7.8 [facility] Comment on above: Performed By: #### 2 [id number] #### [facility] [address] [place] [address] Interdisciplinary Note - Toi e Manageron 05-05-2024 Interdisciplinary Note - Tunnel Man Interdisciplinary Note - Tunnel Man CRM to room and patient is down in OR Patient is still in OR unable to see for DC planning Normal [facility] Comment on above: Result Comment: Elec tronically Signed By: Samara Mcmahon\.shiva\Date and Time Signed: 05/05/24 14:23 EST Main OR Intraoperative Recor don 05-05-2024 Main OR Intraoperative Record Main OR Intraoperative Record IntraOp Document Type FT Summary Primary Physician: Enrrique Blanco MD Finalized Date/Time: 05/05/24 13:41:51 Pt. Name: VALENCIA BROOKS/Sex: 1940 Male Med Rec #: [id number] Physician: Enrrique Blanco MD Financial #: [id number] Pt. Type: O Room/Bed: [place] [address] Admit/Disch: 05/04/24 20:49:17 - Institution: Case Times FT Entry 1 Patient Times In Room 05/05/24 11:32:00 Out Room 05/05/24 13:27:00 Procedure Times Start 05/05/24 11:58:00 Stop 05/05/24 13:19:00 Anesthesia Times Start 05/05/24 11:32:00 Stop 05/05/24 13:27:00 Last Modified By: Mauricio ALVARENGA, Steph Astorga 05/05/24 13:27:15 Case Attendance FT Entry 1 Entry 2 Entry 3 Case Attendee Julio Cesar HIGGINBOTHAM, Alvaro Blanco MD, Enrrique Martínez RN, Steph Astorga Role Performed DOMESTIC VIOLENCE ADVOCATE Surgeon - Primary Landscape Management Technician - Primary Time In 05/05/24 11:32:00 05/05/24 11:54:00 05/05/24 11:32:00 Time Out 05/05/24 13:27:00 05/05/24 13:27:00 05/05/24 13:27:00 Procedure CHOLECYSTECTOMY CHOLECYSTECTOMY CHOLECYSTECTOMY LAPAROSCOPIC W/ CHOLANGI LAPAROSCOPIC W/ CHOLANGI LAPAROSCOPIC W/ CHOLANGI Comments DR. MCCULLOUGH SUPERVISING Last Modified By: Mauricio ALVARENGA, Steph Martínez RN, Steph Martínez RN, Steph Astorga 05/05/24 Maria T P 05/05/24 Maria T P 05/05/24 13:27:16 13:27:16 13:27:16 Entry 4 Entry 5 Entry 6 Case Attendee Denis DE LEÓN, Julissa Joyner RN, Mallorie Jenkins PA-C Role Performed Scrub - Primary Staff - Other PA/CURVE CLEANER Time In 05/05/24 11:32:00 05/05/24 11:32:00 05/05/24 11:54:00 Time Out 05/05/24 13:27:00 05/05/24 11:52:00 05/05/24 13:27:00 Procedure CHOLECYSTECTOMY CHOLECYSTECTOMY CHOLECYSTECTOMY LAPAROSCOPIC W/ CHOLANGI LAPAROSCOPIC W/ CHOLANGI LAPAROSCOPIC W/ CHOLANGI Comments helping in room Last Modified By: Mauricio ALVARENGA, Steph Martínez RN, Steph Martínez RN, Steph Astorga 05/05/24 Maria T Astorga 05/05/24 Maria T Astorga 05/05/24 13:27:16 13:27:16 13:27:16 Perioperative Protocols FT Pre-Care Text: Implements protective measures prior to operative or invasive procedure, confirms identity before the operative or invasive procedure, verifies operative procedure, surgical site, and laterality Entry 1 Procedure(s) CHOLECYSTECTOMY Patient Identity Birthday, ID Band LAPAROSCOPIC W/ CHOLANGI Verified (select at Check, Patient least 2): Participation Consents / H and P Anesthesia Consent, Operative Site N/A Verified Surgery/Procedure Marking Verified Consent, Transfusion Consent Surgical Site Yes Laterality Verified n/a Verified Procedure Verified Yes Correct Patient Yes Position Verified Availability Equipment, Medication Prep Dry Yes Verified (If Applicable) PreOp Antibiotic Yes Time Out Bella LEONARD, Enrrique Chino, Given Participants Alvaro Harrell CRNA, Ferrer RN, Steph Astorga, Julissa Barrois LPN Time Out Complete 05/05/24 11:57:00 Outcomes Met? Yes Last Modified By: Mauricio ALVARENGA, Steph Astorga 05/05/24 12:21:33 Post-Care Text: The patient is free from signs and symptoms of injury caused by extraneous objects Allergy Information FT Pre-Care Text: Verifies allergies Entry 1 Allergies Reviewed? Yes Allergies Reviewed Self/Patient With Outcomes Met? Yes Last Modified By: Mauricio ALVARENGA, Steph Astorga 05/05/24 12:21:40 Post-Care Text: The patient received appropriate medication(s) safely administered during the perioperative period Surgical Procedures FT Entry 1 Procedure Description Procedure CHOLECYSTECTOMY Surgeon Description LAPAROSCOPIC LAPAROSCOPIC W/ CHOLECYSTECTOMY, CHOLANGIOGRAM INTRAOPERATIVE TAP BLOCK Primary Procedure Yes Primary Surgeon Enrrique Blanco MD Start 05/05/24 11:58:00 Stop 05/05/24 13:19:00 Anesthesia Type General Surgical Service General Wound Class 2 - Clean-Contaminated Last Modified By: Steph Martínez RN 05/05/24 13:19:24 General Case Data FT Pre-Care Text: Classifies surgical wound, implements aseptic technique, initiates traffic control Entry 1 Case Information OR OR 2 FT Case Level Level 3 Wound Class 2 - Clean-Contaminated Specialty General ASA Class 3E Preop Diagnosis Acute cholecystitis Postop Same As Preop Yes Postop Diagnosis Acute cholecystitis Outcomes Met? Yes Last Modified By: Steph Martínez RN 05/05/24 12:27:38 Post-Care Text: The patient is free from signs and symptoms of infection Skin Assessment (Pre Procedure) FT Pre-Care Text: Implements protective measures to prevent skin/ tissue injury due to thermal or mechanical sources Evaluates for signs and symptoms of physical injury to skin and tissue Entry 1 Skin Integrity Intact, [place], Warm, & Skin Abnormality No Dry Outcomes Met? Yes Last Modified By: Steph Martínez RN 05/05/24 12:22:17 Post-Care Text: The patient is free from signs and symptoms of injury caused by extraneous objects Patient Positioning FT Pre-Care Text: Identifies physic (more content not included)... Normal [facility] Main OR PACU I Recordon 04-26 Main OR PACU I Record Main OR PACU I Rec ord PACU Phase I Document Type FT Summary Primary Physician: Enrrique Blanco MD Finalized Date/Time: 05/05/24 14:47:42 Pt. Name: VALENCIA BROOKS/Sex: 1940 Male Med Rec #: [id number] Physician: Enrrique Blanco MD Financial #: [id number] Pt. Type: O Room/Bed: [place] [address] Admit/Disch: 05/04/24 20:49:17 - Institution: Case Times PACU I FT Pre-Care Text: Identifies barriers to communication and implements measures to provide psychological support Develops individualized plan of care, and ensures continuity of care Maintains patient's dignity and privacy, and maintains patient confidentiality Identifies and reports philosophical, cultural, and spiritual beliefs and values Identifies individual values and wishes concerning care Implements aseptic technique, and administers prescribed antibiotic therapy and immunizing agents as ordered Evaluates postoperative tissue perfusion Implements thermoregulation measures, and monitors body temperature Evaluates postoperative respiratory status Evaluates postoperative cardiac status Evaluates postoperative neurological status Assesses pain control, collaborated in initiating patient-controlled analgesia and implements alternative methods of pain control Verifies allergies, administers prescribed medications and solutions, evaluates response to medications Entry 1 In PACU I 05/05/24 13:28:00 Discharge from PACU 05/05/24 14:18:00 I Outcomes Met? Yes Last Modified By: Cha Garcia RN 05/05/24 14:47:28 Post-Care Text: The patient demonstrates knowledge of the expected response to the operative or invasive procedure The patient's care is consistent with the individualized perioperative plan of care The patient's right to privacy is maintained The patient's value system, lifestyle, ethnicity, and culture are considered, respected, and incorporated into the perioperative plan of care The patient participates in decisions affecting his or her perioperative plan of care The patient is free from signs and symptoms of infection The patient has wound/tissue perfusion consistent with or improved from baseline levels established preoperatively The patient is at or returning to normothermia at the conclusion of the immediate postoperative period The patient's respiratory function is consistent with or improved from baseline levels established preoperatively The patient's cardiovascular status is consistent with or improved from baseline levels established preoperatively The patient's cardiovascular status is consistent with or improved from baseline levels established preoperatively The patient demonstrates and/or reports adequate pain control throughout the perioperative period The patient received appropriate medication(s), safely administered during the perioperative period Acuity Level PACU I FT Entry 1 Start Time 05/05/24 13:28:00 Stop Time 05/05/24 14:18:00 Acuity Level Acuity Level I Last Modified By: Cha Garcia RN 05/05/24 14:47:40 Finalized By: Cha Garcia RN Document Signatures Signed By: Cha Garcia RN 05/05/24 14:47 Normal [facility] Main OR Preoperative Recordo n 01-10-2025 Main OR Preoperative Record Main OR Preoperative Record PreOp Document Type FT Summary Primary Physician: Enrrique Blanco MD Finalized Date/Time: 05/05/24 12:27:49 Pt. Name: VALENCIA BROOKS /Sex: 1940 Male Med Rec #: [id number] Physician: Enrrique Blanco MD Financial #: [id number] Pt. Type: O Room/Bed: [facility] Admit/Disch: 05/04/24 20:49:17 - Institution: Case Times PreOp FT Pre-Care Text: Verifies consent for planned procedure, identifies individual values and wishes concerning care, includes family members in perioperative teaching Entry 1 Patient Times. In Pre Surgery 05/05/24 10:30:00 Out Pre Surgery 05/05/24 11:30:00 Outcomes Met? Yes Last Modified By: Steph Martínez RN 05/05/24 12:27:47 Post-Care Text: The patient participates in decisions affecting his or her perioperative plan of care Finalized By: Steph Martínez RN Document Signatures Signed By: Steph Martínez RN 05/05/24 12:27 Normal [facility] Operative Reporton Operative Report Operative Report [facility] Acute Care Surgery Operative Report Date of Service: 05/05/2024 Preop Diagnosis: Acute cholecystitis Postop Diagnosis: Acute cholecystitis Procedure: Laparoscopic subtotal cholecystectomy Surgeon:Enrrique Blanco MD Ripening Room Attendant: Kristy Piper PA-C Anesthesia: General endotracheal EBL: 200 mL Wound Class: Dirty Drains: 19 Manas in the right upper quadrant Complications: None Specimens: Gallbladder Intraoperative Findings: Severely inflamed gallbladder with evidence of necrosis and perforation. The cystic structures were unable to be identified due to the degree of inflammation and the decision was made to proceed with subtotal cholecystectomy. Indications: VALENCIA BROOKS is a 83 Years Male admitted on 05/05/2024 as a transfer from [facility] with acute cholecystitis. He was started on antibiotics and placed on the regular nursing floor. The risks, benefits, and alternatives to laparoscopic cholecystectomy were explained to the patient who provided @HIS@ informed consent for the procedure. Operative Note: The patient was brought to the operating room and positioned on the operating table in a supine manner. SCDs were placed on bilateral lower extremities and pre-operative antibiotics were administered. General endotracheal anesthesia was induced. The patient was then prepped and draped in the usual sterile fashion. A time out was performed by the entire operating room team to confirm the correct patient, the correct site, and the correct procedure. A vertical supraumbilical incision was made with an #11 blade. The umbilical stalk was grasped with a Hay clamp and elevated, and the fascia in the midline was incised with an #11 blade. Fascial stay sutures of 0 Vicryl were placed. A fingertip was used to divide the pre-peritoneal fat and enter the peritoneum and then the 12mm Blankenship port was placed and secured using the stay sutures. Pneumoperitoneum was established and then the patient was placed in reverse Trendelenberg. A 5mm port was placed in the subxiphoid area, and two additional 5mm ports were placed in the right subcostal area. The gallbladder was visualized. It was severely inflamed and distended. A needle was used to decompress the gallbladder. The fundus of the gallbladder was grasped and elevated over the dome of the liver. The infundibulum was retracted inferiorly and laterally. There was a small amount of bilious fluid surrounding the liver. There was a thick layer of inflammatory tissue overlying the gallbladder and the cystic structures. This made dissection of the cystic structures difficult and potentially dangerous. The decision was then made to proceed with subtotal cholecystectomy. Using electrocautery the infundibulum of the gallbladder was transected and the free wall of the gallbladder was taken off the liver bed leaving gallbladder tissue on the liver. The remaining gallbladder mucosa was cauterized. Hemostasis was achieved with electrocautery. The gallbladder fossa was irrigated well. A 19f Manas drain was placed through the midclavicular port site and secured with 2-0 nylon. The gallbladder was then placed in an Endocatch bag. Jesse was then applied to the raw surfaces in the gallbladder fossa. The 5mm ports were removed under direct vision. The gallbladder was removed through the umbilical port site and pneumoperitoneum was released. The umbilical port site was closed with the fascial stay sutures tied down. Liposomal bupivicaine was infiltrated into the port sites. The skin was closed with 4-0 Monocryl and Dermabond. At the end of the case, all instrument and sponge counts were correct. General anesthesia was withdrawn and the patient was awoken and extubated. The patient was transferred to PACU in good condition. I was present for all parts of the procedure. Normal [facility] Comment on above: Result Comment: Elec tronically Signed By: Bella LEONARD, Enrrique Juarez\Date and Time Signed: 05/05/24 14:10 EST PT & PTTon 05-05-2024 aPTT Coag (PPP) [Time] 31.3 second(s) Normal 25.1-36.5 [facility] Comment on above: Result Comment: Para meter 15 days - 4 weeks 1 - 5 months 6 - 11 months 1 - 5 years 6 - 10 years 11 - 17 years PTT Mean: 35.4 (27.6-45.6) Mean: 33.5 (24.8-40.7) Mean: 32.4 (25.1-40.7) Mean: 31.6 (24.0-39.2) Mean: 31.6 (26.9-38.7) Mean: 31.0 (24.6-38.4) Pediatric Reference ranges were obtained from a study by Kai Aguilar et al. prepared from 1437 samples obtained at 7 different centers using the same coagulation reagent and instrumentation as [facility]. Currently there are no coagulation studies available worldwide for children to 14 days, and no normal ranges. Heparin therapeutic range (represented by Anti-Factor Xa activity of 0.2 - 0.4 U/mL) corresponds to PTT of 56.6 - 109.0 sec. Performed By: #### 1 [id number] #### [facility] [address] [place] [address] INR Coag (PPP) [Relative time] 1.40 {INR} Invalid Interpretation Code [facility] Comment on above: Result Comment: INR results are specifically intended to assess patients stabilized on long-term Anticoagulation therapy suggested INR???s ???Less Intensive Anticoagulation??? 2.0 ??? 3.0 Conventional Range 3.0 ??? 4.5 Performed By: #### 1 [id number] #### [facility] [address] [place] [address] PT Coag (PPP) [Time] 15.7 second(s) High 9.4-12.5 [facility] Comment on above: Result Comment: 15 d ays - 4 weeks 1 - 5 months 6 -11 months 1 ??? 5 years 6 ??? 10 years 11 -17 years Mean: 11.2 (9.5 ??? 12.6) Mean: 11.0 (9.7 ??? 12.8) Mean: 11.0 (9.8 ??? 13.0) Mean: 11.3 (9.9 ??? 13.4) Mean: 11.7 (10.0 ??? 14.6) Mean: 11.8 (10.0 - 14.1) Pediatric Reference ranges were obtained from a study by genevieve Ortiz al. prepared from 1437 samples obtained at 7 different centers using the same coagulation reagent and instrumentation as [facility]. Currently there are no coagulation studies available worldwide for children to 14 days, and no normal ranges. Performed By: #### 1 [id number] #### [facility] [address] [place] [address] XR Chest 2 Viewson 5 XR Chest 2 Views Exam Date/Time: 05/05/2024 07:45 EST Reason for Exam: Pre op;Other (please specify) Report IMPRESSION: No acute radiographic abnormality. EXAMINATION: XR Chest 2 Views Clinical History: Presurgical assessment. Comparison: None RESULT: No distinct focal consolidation. No large pleural effusion. No pneumothorax. Mildly coarsened lung markings. Normal cardiomediastinal silhouette. No acute osseous findings. Ordering Provider: Enrrique Blanco FINAL REPORT Dictated: 05/05/2024 11:04 am Bishop Wu MD Signed (Electronic Signature): 05/05/2024 11:04 am Signed by: Bishop Wu MD Transcribed by: LANA Technologist: CARLY Technical Comments Radiation Dose: Ka,r in mGy = . DAP = . Normal [facility] [facility]on 05-05-2024 eGFR 89 mL/min/1.73 m2 Normal >=59 [facility] Comment on above: Performed By: #### 1 [id number] #### [facility] [address] [place] [address] No Panel Informationon 03-28 [facility] No Panel Informationon 03-15 [facility] Skin excisionon 03-15-2024 Lesion length (cm): 0.7 Lesion width (cm): 0.5 Margin per side (cm): 0.4 Total excision diameter (cm): 1.5 Informed consent: discussed and consent obtained Informed consent comment: Risks and possible complications were discussed as noted on the consent form. The consent form was signed prior to the procedure. Timeout: patient name, date of , surgical site, and procedure verified Timeout comment: Patient and provider identified site. Site was marked and excision was drawn out. Photo was taken and shown to patient, patient verified this is the correct site. Procedure prep: Patient was prepped and draped in usual sterile fashion (The planned incision lines were drawn along relaxed skin tension lines, if possible, to minimize scarring and deformity of surrounding structures.) Prep type: Chlorhexidine Anesthesia: the lesion was anesthetized in a standard fashion Anesthesia comment: The local anesthetic was injected to create a field block at the site of the procedure. Anesthetic: 1% lidocaine w/ epinephrine 1-100,000 buffered w/ 8.4% NaHCO3 Instrument used: #15 blade Instrument used comment: Incisions were made as drawn, and the surrounding tissue was undermined until the skin edges could be approximated without undue tension. Any tissue redundancies were removed. Hemostasis achieved with: electrodesiccation Additional details: Amount of lidocaine used: 6.0 ml Estimated blood loss: 1.0 ml [facility] Skin repairon 03-15-2024 Complexity: Intermediate Final length (cm): 4 Reason for type of repair: allow closure of the large defect Undermining: edges undermined Undermining comment: The surrounding tissue was undermined until the skin edges could be approximated without undue tension. Any tissue redundancies were removed. Subcutaneous layers (deep stitches): Suture size: 3-0 Suture type comment: Biosyn Stitches: Buried horizontal mattress (Closure was performed in a layered fashion with subcutaneous tissue closed first using tension-bearing absorbable sutures to the level of the superficial fascia.) Fine/surface layer approximation (top stitches): Suture size: 4-0 Suture type: Prolene (polypropylene) Stitches: simple running Stitches comment: Epicuticular skin sutures were then placed with minimal tension. Outcome: patient tolerated procedure well with no complications Post-procedure details: sterile dressing applied and wound care instructions given Post-procedure details comment: It was emphasized to the patient to contact the office for any signs of infection, uncontrollable bleeding, or complications. Dressing type: bandage [facility] No Panel Informationon 03-01 Lesion length (cm): 1.2 Lesion width (cm): 0.8 Margin per side (cm): 0.4 Total excision diameter (cm): 2 Informed consent: discussed and consent obtained Informed consent comment: Risks and possible complications were discussed as noted on the consent form. The consent form was signed prior to the procedure. Timeout: patient name, date of , surgical site, and procedure verified Timeout comment: Patient and provider identified site. Site was marked and excision was drawn out. Photo was taken and shown to patient, patient verified this is the correct site. Procedure prep: Patient was prepped and draped in usual sterile fashion (The planned incision lines were drawn along relaxed skin tension lines, if possible, to minimize scarring and deformity of surrounding structures.) Prep type: Chlorhexidine Anesthesia: the lesion was anesthetized in a standard fashion Anesthesia comment: The local anesthetic was injected to create a field block at the site of the procedure. Anesthetic: 1% lidocaine w/ epinephrine 1-100,000 buffered w/ 8.4% NaHCO3 Instrument used: #15 blade Instrument used comment: Incisions were made as drawn, and the surrounding tissue was undermined until the skin edges could be approximated without undue tension. Any tissue redundancies were removed. Hemostasis achieved with: electrodesiccation Additional details: Amount of lidocaine used: 9 ml Estimated blood loss: 0.1 ml [facility] Complexity: Intermediate Final length (cm): 5.9 Reason for type of repair: allow closure of the large defect Undermining: edges undermined Undermining comment: The surrounding tissue was undermined until the skin edges could be approximated without undue tension. Any tissue redundancies were removed. Subcutaneous layers (deep stitches): Suture size: 3-0 Suture type comment: Biosyn Stitches: Buried horizontal mattress (Closure was performed in a layered fashion with subcutaneous tissue closed first using tension-bearing absorbable sutures to the level of the superficial fascia.) Fine/surface layer approximation (top stitches): Suture size: 4-0 (Surgipro) Stitches: simple running Stitches comment: Epicuticular skin sutures were then placed with minimal tension. Suture removal (days): 14 Outcome: patient tolerated procedure well with no complications Post-procedure details: sterile dressing applied and wound care instructions given Post-procedure details comment: It was emphasized to the patient to contact the office for any signs of infection, uncontrollable bleeding, or complications. Dressing type: bandage [facility] [employer] No Panel InformationOrdered By: Diamond Rios on 03-01-2024 [facility] [employer] Work Phone: No Panel Informationon 01-02 Type of biopsy: tangential Informed consent: discussed and consent obtained Informed consent comment: The risks and benefits of the biopsy were discussed. Risks include but are not limited to bleeding, infection, scarring, pain, and nerve damage. An opportunity to ask questions prior to the procedure was permitted and all questions were answered. Patient was prepped and draped in usual sterile fashion: area cleansed with alcohol. Anesthesia: the lesion was anesthetized in a standard fashion Anesthetic: 1% lidocaine w/ epinephrine 1-100,000 buffered w/ 8.4% NaHCO3 Instrument used: DermaBlade Hemostasis achieved with: electrodesiccation Outcome: patient tolerated procedure well Outcome comment: The specimen was placed in a prelabeled formalin container to be sent for pathology Post-procedure details: sterile dressing applied and wound care instructions given Post-procedure details comment: Emphasized need to contact clinic for any signs of infection, uncontrollable bleeding, or complications. Dressing type: bandage Additional details: Photo taken yes Amount of lidocaine used: 1.0 cc [facility] [employer] Type of biopsy: tangential Informed consent: discussed and consent obtained Informed consent comment: The risks and benefits of the biopsy were discussed. Risks include but are not limited to bleeding, infection, scarring, pain, and nerve damage. An opportunity to ask questions prior to the procedure was permitted and all questions were answered. Patient was prepped and draped in usual sterile fashion: area cleansed with alcohol. Anesthesia: the lesion was anesthetized in a standard fashion Anesthetic: 1% lidocaine w/ epinephrine 1-100,000 buffered w/ 8.4% NaHCO3 Instrument used: DermaBlade Hemostasis achieved with: electrodesiccation Outcome: patient tolerated procedure well Outcome comment: The specimen was placed in a prelabeled formalin container to be sent for pathology Post-procedure details: sterile dressing applied and wound care instructions given Post-procedure details comment: Emphasized need to contact clinic for any signs of infection, uncontrollable bleeding, or complications. Dressing type: bandage Additional details: Photo taken yes Amount of lidocaine used: 1.0 cc [facility] [employer] [facility] MRI KNEE RT W CONon 05-12-19 20 MRI KNEE RT W CON Patient: VALENCIA BROOKS Exam Date: 05/12/2019 : 1940 Gender:M Ordering : DR KESHA MARIN PA Admission #: [id number] Family : Order #: [id number] CLICK HERE TO VIEW EXAM RADIOLOGY REPORT PROCEDURE: MRI KNEE RIGHT WITH CONTRAST COMPARISON: XR KNEE AMANDA 4V OR >, 04/04/2019. MRI KNEE RT WO CON, 04/11/2019. INDICATIONS: Subsequent imaging for non specific findings in distal femur TECHNIQUE: A variety of imaging planes and parameters were utilized for visualization of suspected pathology. Images were performed without and with 19 intravenous Dotarem. FINDINGS: Multiple enhancing lesions within the marrow cavity of the distal right femur, many are adjacent the cortex of the posterior articular surface of the femoral condyles, but additional lesions are more centered within the marrow cavity of the distal femur; the largest is within the marrow cavity of the distal femoral metaphysis, geographic shaped and 2.8 x 2.5 x 2.3 cm in size. Two small enhancing lesions within the patella versus subchondral edema from overlying cartilage injury. CONCLUSION: 1. Multiple enhancing nonspecific lesions which also follow T2 signal within the distal femur and femoral condyles. The lesions are nonspecific, but the shape of the lesions within the marrow cavity are suggestive of ischemic infarctions. The shape of the lesions adjacent the posterior articular surface are suggestive of large subchondral cysts, but subchondral cysts would not be expected to enhance. Orthopedic consultation and tissue sampling should be considered. Dictated by: Asa Dueñas M.D. on 05/12/2019 at 15:37 Approved by: Asa Dueñas M.D. on 05/12/2019 at 15:45 Normal [facility] CREATININEon 05-09-2019 Creatinine [Mass/Vol] 1.00 mg/dL Normal 0.66-1.25 [facility] Comment on above: Performed By: #### C STEVIE #### [facility] [address], [place] [address] Elda Rebolledo Creatinine [Mass/Vol] mg/dL Normal >=60 [facility] Comment on above: Performed By: #### C STEVIE #### [facility] [address], [place] [address] Elda Rebolledo MRI KNEE RT WO CONon 019 MRI KNEE RT WO CON Patient: VALENCIA BROOKS Exam Date: 04/11/2019 : 1940 Gender:M Ordering : DR KESHA MARIN PA Admission #: [id number] Family : Order #: [id number] CLICK HERE TO VIEW EXAM RADIOLOGY REPORT PROCEDURE: MRI KNEE RIGHT WITHOUT CONTRAST COMPARISON: XR KNEE AMANDA 4V OR >, 04/04/2019. INDICATIONS: Abnormal findings on diagnostic imaging of limbs with chronic bilateral knee pain TECHNIQUE: A complete multi-planar MRI was performed. FINDINGS: MEDIAL COMPARTMENT MEDIAL MENISCUS: No visible tear or significant degeneration. CARTILAGE: No visible defect. BONES: 2 prominent area of increased T2 signal within the posterior medial condyle, largest is 23 x 18 x 12 mm is a which abuts the posterior cortical surface. 2.4 x 2.4 x 2.0 cm geographic shaped area of increased T2 signal within the marrow cavity of the femoral metaphysis with adjacent smaller areas of increased T2 signal. MCL AND MEDIAL CAPSULE: Normal medial collateral ligament and medial capsule. LATERAL COMPARTMENT LATERAL MENISCUS: No visible tear or significant degeneration. CARTILAGE: No visible defect. BONES: Small area of increased T2 signal within the posterior lateral condyle abutting the posterior cortical surface. LCL/POSTEROLAT COMPLEX: Normal lateral collateral ligament, fascicles, lateral capsule and ligaments. ANTERIOR COMPARTMENT PATELLA: Several small subcortical areas of increased T2 signal suggestive of edema. CARTILAGE: Focal defects and marked cartilage thinning of the patella. TENDONS: Normal. EFFUSION: None. No synovitis or loose bodies. ACL: Normal appearing ligament. PCL: Normal appearing ligament. MENISCOFEMORAL: Normal meniscofemoral ligaments. OTHER: Negative. CONCLUSION: 1. Multiple nonspecific lesions within the distal femur. The location of the lesions suggests subchondral cysts and bone infarction, however, the heterogeneity of these lesions and the multiplicity is concerning for metastatic neoplasm. Follow-up MRI of the knee with IV contrast is recommended to evaluate for enhancing soft tissue components. Dictated by: Asa Dueñas M.D. on 04/11/2019 at 14:01 Approved by: Asa Dueñas M.D. on 04/11/2019 at 14:44 Normal [facility] XR FOREIGN BODY EYEon 2018 XR FOREIGN BODY EYE Patient: VALENCIA BROOKS Exam Date: 04/11/2019 : 1940 Gender:M Ordering : DR KESHA MARIN PA Admission #: [id number] Family : Order #: [id number] CLICK HERE TO VIEW EXAM RADIOLOGY REPORT PROCEDURE: RADIOGRAPH FOREIGN BODY EYE COMPARISON: None. INDICATIONS: Foreign body in eye FINDINGS: ORBITS: Negative for a metallic foreign body. OTHER: Metallic dentures versus implants. Bilateral metallic foreign bodies project over the ears consistent with known hearing aids CONCLUSION: No metallic foreign body within the orbits. Dictated by: Vonnie Donahue M.D. on 04/11/2019 at 13:20 Approved by: Vonnie Donahue M.D. on 04/11/2019 at 13:21 Normal [facility] XR KNEE AMANDA 4V OR >on 2018 XR KNEE AMANDA 4V OR > Patient: VALENCIA BROOKS Exam Date: 04/04/2019 : 1940 Gender:M Ordering : DR KESHA JACOBSEN Admission #: [id number] Family : DR BISHOP TURCIOS M.D. Order #: [id number] CLICK HERE TO VIEW EXAM RADIOLOGY REPORT PROCEDURE: RADIOGRAPH KNEE BILATERAL MIN 4 VIEWS COMPARISON: None. INDICATIONS: Chronic bilateral knee pain without injury RIGHT FINDINGS: BONES: Cystic lesion within the lateral femoral condyle at least 2.9 x 2.6 cm. No periosteal reaction or cortical thickening. Moderate narrowing of the anterior joint space. Small-moderate periarticular degenerative osteophytes involving the anterior and medial compartments. SOFT TISSUES: No visible soft tissue swelling. EFFUSION: None visible. OTHER: Negative. LEFT FINDINGS: BONES: Mild-moderate narrowing of the anterior joint space. Small-moderate periarticular degenerative osteophytes involving the patella. Prominent degenerative enthesophyte along the lateral margin of the patella. No fracture, dislocation, or bone lesion. SOFT TISSUES: No visible soft tissue swelling EFFUSION: None visible. OTHER: Negative. RIGHT CONCLUSION: Nonspecific cystic lesion within the lateral femoral condyle. MRI of the knee is recommended for further evaluation. Moderate degenerative changes of the anterior compartment. LEFT CONCLUSION: Moderate degenerative changes of the anterior compartment. Dictated by: Asa Dueñas M.D. on 04/05/2019 at 06:54 Approved by: Asa Dueñas M.D. on 04/05/2019 at 07:00 Normal [facility] XR C-SPINE MIN 4 VIEWSon XR C-SPINE MIN 4 VIEWS [address] [place] [address] Patient: VALENCIA BROOKS Exam Date: 07/07/2018 : 1940 Gender:M Ordering : DR BISHOP TURCIOS M.D. Admission #: [id number] Family : Order #: [id number] CLICK HERE TO VIEW EXAM RADIOLOGY REPORT PROCEDURE: RADIOGRAPH C-SPINE MIN 4 VIEWS COMPARISON: None. INDICATIONS: Chronic cervical spine pain without injury FINDINGS: BONES: Moderate facet spondylosis L3-4, L4-5 resulting in bone encroachment on the neural foramen. No fracture or spondylolisthesis. DISC SPACES: Moderate narrowing C5-6. PARASPINOUS: Negative. No paraspinous abnormality is seen. OTHER: Negative. CONCLUSION: 1. Moderate degenerative changes. 2. No appreciable acute abnormality. Dictated by: Asa Dueñas M.D. on 07/07/2018 at 16:22 Approved by: Asa Dueñas M.D. on 07/07/2018 at 16:26 Normal [facility] Vital Signs Date Time Vital Sign Value Performing Clinician Facility 05-18-2024 13:04-0500 Body height 172.7 cm Kesha JACOBSEN Work Phone: [facility] 05-18-2024 13:04-0500 Body mass index (BMI) [Ratio] 26.37 kg/m2 Kesha JACOBSEN Work Phone: [facility] 05-18-2024 13:04-0500 Body weight 78.65 kg Kesha JACOBSEN Work Phone: [facility] 05-18-2024 13:04-0500 Diastolic blood pressure 62 mm[Hg] Kesha Lopezmer PA Work Phone: [facility] 05-18-2024 13:04-0500 Heart rate 84 /min Kesha Hemmer PA Work Phone: [facility] 05-18-2024 13:04-0500 Respiratory rate 16 /min Kesha Hemmer PA Work Phone: [facility] 05-18-2024 13:04-0500 SaO2% (BldA) [Mass fraction] 95 % Kesha Hemmer PA Work Phone: [facility] 05-18-2024 13:04-0500 Systolic blood pressure 124 mm[Hg] Kesha Hemmer PA Work Phone: [facility] 05-17-2024 10:02-0500 Diastolic blood pressure 64 mm[Hg] Clark Harpin [facility] 05-17-2024 10:02-0500 Heart rate 91 /min Clark Bass [facility] 05-17-2024 10:02-0500 SaO2% (BldA) [Mass fraction] 96 % Clark Bass [facility] 05-17-2024 10:02-0500 Systolic blood pressure 109 mm[Hg] Clark Bass [facility] 05-07-2024 11:55-0500 Hourly Rounding Enrrique Blanco [facility] 05-07-2024 11:55-0500 Promise to Return Enrrique Blanco [facility] 05-07-2024 11:19-0500 Heart rate 92 /min Enrrique Blanco [facility] 05-07-2024 11:19-0500 SaO2% (BldA) [Mass fraction] 96 % Enrrique Blanco [facility] 05-07-2024 11:17-0500 Respiratory rate 18 /min Enrrique Blanco [facility] 05-07-2024 11:17-0500 Body temperature 98.24 [degF] Enrrique Blanco [facility] 05-07-2024 11:17-0500 Blood Pressure Location Enrrique Blanco [facility] 05-07-2024 11:17-0500 BP/Pulse Patient Position Enrrique Blanco [facility] 05-07-2024 11:17-0500 Diastolic blood pressure 65 mm[Hg] Enrrique Blanco [facility] 05-07-2024 11:17-0500 Mean blood pressure 81 mm[Hg] Enrrique Blanco [facility] 05-07-2024 11:17-0500 Systolic blood pressure 113 mm[Hg] Enrrique Blanco [facility] 05-07-2024 10:55-0500 Hourly Rounding Enrrique Blanco [facility] 05-07-2024 10:55-0500 Promise to Return Enrrique Blanco [facility] 05-07-2024 09:36-0500 Hourly Rounding Enrrique Blanco [facility] 05-07-2024 09:36-0500 Promise to Return Enrrique Blanco [facility] 05-07-2024 08:10-0500 Heart rate 95 /min Enrrique Blanco [facility] 05-07-2024 08:10-0500 SaO2% (BldA) [Mass fraction] 92 % Enrrique Blanco [facility] 05-07-2024 08:09-0500 Respiratory rate 16 /min Enrrique Blanco [facility] 05-07-2024 08:09-0500 Blood Pressure Location Enrrique Blanco [facility] 05-07-2024 08:09-0500 BP/Pulse Patient Position Enrrique Blanco [facility] 05-07-2024 08:09-0500 Diastolic blood pressure 64 mm[Hg] Enrrique Blanco [facility] 05-07-2024 08:09-0500 Mean blood pressure 84 mm[Hg] Enrrique Blanco [facility] 05-07-2024 08:09-0500 Systolic blood pressure 126 mm[Hg] Enrrique Blanco [facility] 05-07-2024 08:09-0500 Body temperature 98.42 [degF] Enrrique Blanco [facility] 05-07-2024 04:41-0500 Body temperature 98.06 [degF] Enrrique Blanco [facility] 05-07-2024 04:41-0500 Diastolic blood pressure 66 mm[Hg] Enrrique Blanco [facility] 05-07-2024 04:41-0500 Heart rate 92 /min Enrrique Blanco [facility] 05-07-2024 04:41-0500 Mean blood pressure 86 mm[Hg] Enrrique Blanco [facility] 05-07-2024 04:41-0500 Respiratory rate 18 /min Enrrique Blanco [facility] 05-07-2024 04:41-0500 SaO2% (BldA) [Mass fraction] 92 % Enrrique Blanco [facility] 05-07-2024 04:41-0500 Systolic blood pressure 127 mm[Hg] Enrrique Blanco [facility] 05-07-2024 00:00-0500 Body temperature 98.42 [degF] Enrrique Blanco [facility] 05-06-2024 20:00-0500 Blood Pressure Location Enrrique Blanco [facility] 05-06-2024 20:00-0500 gluc 143 mg/dL Enrrique Blanco [facility] 05-06-2024 11:22-0500 BP/Pulse Patient Position Enrrique Blanco [facility] 05-06-2024 11:22-0500 Mean blood pressure 77 mm[Hg] Enrrique Blanco [facility] 05-06-2024 11:22-0500 Body temperature 98.06 [degF] Enrrique Blanco [facility] 05-05-2024 16:00-0500 Body temperature 97.88 [degF] Enrrique Blanco [facility] 05-05-2024 16:00-0500 Mean blood pressure 75 mm[Hg] Enrrique Blanco [facility] 05-05-2024 14:05-0500 Body temperature 97.7 [degF] Enrrique Blanco [facility] 05-05-2024 14:05-0500 Mean blood pressure 84 mm[Hg] Enrrique Blanco [facility] 05-05-2024 14:05-0500 Respiratory rate 21 /min Enrrique Blanco [facility] 05-05-2024 13:55-0500 Respiratory rate 16 /min Enrrique Blanco [facility] 05-05-2024 13:50-0500 Respiratory rate 18 /min Enrrique Blanco [facility] 05-05-2024 13:28-0500 Body temperature 97.52 [degF] Enrrique Blanco [facility] 05-05-2024 05:39-0500 Heart rate 87 /min Enrrique Blanco [facility] 05-05-2024 00:10-0500 Heart rate 84 /min Enrrique Blanco [facility] 05-04-2024 15:36-0500 Body height 172.7 cm Tesha Lind [employer] Work Phone: [facility] 05-04-2024 15:36-0500 Body mass index (BMI) [Ratio] 27.55 kg/m2 Tesha Lind [employer] Work Phone: [facility] 05-04-2024 15:36-0500 Body weight 82.19 kg Tesha Lind [employer] Work Phone: [facility] 05-04-2024 15:36-0500 Diastolic blood pressure 68 mm[Hg] Tesha Lind [employer] Work Phone: [facility] 05-04-2024 15:36-0500 Heart rate 91 /min Tesha Lind [employer] Work Phone: [facility] 05-04-2024 15:36-0500 Respiratory rate 17 /min Tesha Lind [employer] Work Phone: [facility] 05-04-2024 15:36-0500 SaO2% (BldA) [Mass fraction] 95 % Tesha Lind [employer] Work Phone: [facility] 05-04-2024 15:36-0500 Systolic blood pressure 130 mm[Hg] Tesha Lind [employer] Work Phone: [facility] 01-10-2024 13:59-0400 Body height 172.7 cm Bishop Turcios MD Work Phone: [facility] 01-10-2024 13:59-0400 Body mass index (BMI) [Ratio] 27.52 kg/m2 Bishop Turcios MD Work Phone: [facility] 01-10-2024 13:59-0400 Body weight 82.1 kg Bishop Turcios MD Work Phone: [facility] 01-10-2024 13:59-0400 Diastolic blood pressure 66 mm[Hg] Bishop Turcios MD Work Phone: [facility] 01-10-2024 13:59-0400 Heart rate 68 /min Bishop Turcios MD Work Phone: [facility] 01-10-2024 13:59-0400 SaO2% (BldA) [Mass fraction] 96 % Bishop Turcios MD Work Phone: [facility] 01-10-2024 13:59-0400 Systolic blood pressure 124 mm[Hg] Bishop Turcios MD Work Phone: [facility] Healthcare Encounters Encounter Date Encounter Type Care Provider Facility Start: 05-18-2024 End: 05-18-2024 Bamboo flowsheet Kesha Marin PA Work Phone: [facility] Start: 05-18-2024 End: 05-18-2024 Bamboo flowsheet Kesha Marin PA Work Phone: [facility] Start: 05-18-2024 End: 05-18-2024 Transitional care manage srvc 14 day discharge Kesha JACOBSEN Work Phone: [facility] Comment on above: Decreased appetite ( Primary Dx); S/P cholecystectomy; Microcytic anemia; Thrombocytopenia (CMS/HCC) Start: 05-18-2024 End: 05-18-2024 ambulatory KESHA MARIN Not Available Start: 05-17-2024 End: 05-17-2024 ambulatory MD Clark Bass Facility:[facility] Start: 05-17-2024 End: 05-17-2024 Patient encounter procedure Clark Bass [facility] Start: 05-05-2024 End: 05-07-2024 Evaluation and management of inpatient Enrrique Blanco Facility:[facility] Start: 05-04-2024 ambulatory Enrrique Blanco Faci lity:[facility] Start: 05-04-2024 End: 05-07-2024 Evaluation and management of inpatient Enrrique Blanco [facility] Start: 05-04-2024 End: 05-04-2024 Office outpatient visit 25 minutes Tesha Lind [employer] Work Phone: [facility] Comment on above: Generalized abdomina l pain (Primary Dx); Chronic idiopathic constipation Start: 05-04-2024 End: 05-04-2024 ambulatory TESHA LIND Not Available Start: 05-04-2024 End: 05-04-2024 Bamboo flowsheet Tesha Lind [employer] Work Phone: [facility] Start: 05-04-2024 End: 05-04-2024 Bamboo flowsheet Tesha Lind [employer] Work Phone: [facility] Start: 03-28-2024 End: 03-28-2024 Bamboo flowsheet Kathrine Forman PA Work Phone: [facility] Start: 03-28-2024 End: 03-28-2024 Bamboo flowsheet Kathrine Forman PA Work Phone: [facility] Start: 03-28-2024 End: 03-28-2024 Patient encounter procedure Kathrine Forman PA Work Phone: [facility] Comment on above: Actinic keratosis (P rimary Dx); Encounter for removal of sutures Start: 03-28-2024 End: 03-28-2024 ambulatory KATHRINE L DICKSON Not Available Start: 03-15-2024 End: 03-15-2024 Patient encounter procedure Adan Suarez MD Work Phone: [facility] Comment on above: Basal cell carcinoma (BCC) of skin of other part of torso (Primary Dx); Encounter for removal of sutures Start: 03-15-2024 End: 03-15-2024 ambulatory ADAN Patricia KADYI Not Available Start: 03-01-2024 End: 03-01-2024 Patient encounter procedure Adan Saurez MD Work Phone: [facility] Comment on above: Basal cell carcinoma (BCC) of skin of other part of torso (Primary Dx) Start: 03-01-2024 End: 03-01-2024 ambulatory ADAN VYASMARIA ELENAI Not Available Start: 03-01-2024 End: 03-01-2024 Bamboo flowston Suarez MD Work Phone: [facility] Start: 03-01-2024 End: 03-01-2024 Bamboo flowston Suarez MD Work Phone: [facility] Start: 01-10-2024 End: 01-10-2024 Assay of hemosiderin, quant Bishop Turcios MD Work Phone: [facility] Work Phone: Start: 01-10-2024 End: 01-10-2024 Bamboo flowsheet Bishop Turcios MD Work Phone: [facility] Start: 01-10-2024 End: 01-10-2024 Bamboo flowsheet Bishop Turcios MD Work Phone: [facility] Start: 01-10-2024 End: 01-10-2024 Patient encounter procedure Bishop Turcios MD Work Phone: [facility] Comment on above: Routine general medi samina examination at health care facility (Primary Dx); ACP (advance care planning); Gastroesophageal reflux disease without esophagitis; Chronic insomnia; Hypothyroidism (acquired) (CMS/HCC); Primary osteoarthritis of both knees; Spondylosis of cervical region without myelopathy or radiculopathy; 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) Start: 01-10-2024 End: 01-10-2024 ambulatory BISHOP TURCIOS Not Available Start: 01-03-2024 End: 01-03-2024 Bamboo flowsheet Kathrine Forman PA Work Phone: [facility] Start: 01-03-2024 End: 01-03-2024 Bamboo flowsheet Kathrine Forman PA Work Phone: [facility] Start: 01-03-2024 End: 01-03-2024 Office outpatient visit 15 minutes Kathrine JACOBSEN Work Phone: [facility] Comment on above: Seborrheic keratosis (Primary Dx); Lentigines; History of basal cell carcinoma; Actinic keratosis; Neoplasm of unspecified behavior of bone, soft tissue, and skin Start: 01-03-2024 End: 01-03-2024 ambulatory KATHRINE FORMAN Not Available Start: 06-29-2023 End: 06-29-2023 ambulatory KATHRINE Ryan FORMAN Not Available Start: 05-12-2019 End: 05-13-2019 Patient encounter procedure KESHA MARIN Facility:[facility] Start: 05-09-2019 End: 05-10-2019 Patient encounter procedure KESHA MARIN Facility:[facility] Start: 04-11-2019 End: 04-12-2019 Patient encounter procedure KESHA MARIN Facility:[facility] Start: 04-04-2019 End: 04-05-2019 Patient encounter procedure KESHA MARIN Facility:[facility] Start: 07-07-2018 End: 07-08-2018 Patient encounter procedure BISHOP TURCIOS Facility:[facility] Procedures Date Procedure Procedure Detail Performing Clinician Start: 05-05-2024 Cholecystectomy Clark Bass Start: 03-28-2024 CRYOTHERAPY SKIN LESION Kathrine JACOBSEN Work Phone: Start: 03-15-2024 SKIN EXCISION Adan Suarez MD Work Phone: Start: 03-15-2024 SKIN REPAIR Adan Suarez MD Work Phone: Start: 03-01-2024 SKIN EXCISION Adan Suarez MD Work Phone: Start: 03-01-2024 SKIN REPAIR Adan Suarez MD Work Phone: Start: 01-03-2024 End: 01-03-2024 SKIN / NAIL BIOPSY Kathrine JACOBSEN Work Phone: Start: 01-03-2024 CRYOTHERAPY SKIN LESION Kathrine JACOBSEN Work Phone: History of cholecystectomy S/P cholecyste ctomy Kesha JACOBSEN Work Phone: Plan of Treatment Date Care Activity Detail Author Start: 01-09-2025 Medicare Annual Wellness (AWV) Medicare Annual Wellness (AWV) [facility] Start: 07-10-2024 End: 07-10-2024 Patient encounter procedure 07/10/2024 1:00 PM EDT Office Visit [facility] [address] [facility] [address] [place] [address] Bishop Turcios MD [address] [facility] [address] [place] [address] [facility] Start: 07-03-2024 End: 07-03-2024 Patient encounter procedure 07/03/2024 3:00 PM EDT Office Visit [facility] [address] [place] [address] Kathrine Forman PA [address] [facility] [address] [place] [address] [facility] Start: 06-01-2024 End: 05-18-2025 CBC panel - Blood by Automated count CBC Lab Routine Microcytic anemia Thrombocytopenia (CMS/HCC) Expected: 06/01/2024 (Approximate), Expires: 05/18/2025 [facility] Work Phone: Comment on above: Expected: 06/01/2024 (Approximate), Expi res: 05/18/2025 Start: 05-18-2024 End: 05-18-2024 Patient encounter procedure 05/18/2024 1:00 PM EST Office Visit [facility] [address] [place] [place] [address] Kesha Marin PA [address] [place] [address] Arrived [facility] Comment on above: Arrived Start: 05-04-2024 End: 05-04-2024 Patient encounter procedure 05/04/2024 3:30 PM EST Office Visit [facility] [address] [place] [place] [address] Tesha Lind, [employer] [address] [place] [address] Arrived [facility] Comment on above: Arrived Start: 05-04-2024 End: 05-04-2025 XR Abdomen Single view XR ABDOMEN 2 VIEW Imaging Routine Generalized abdominal pain Chronic idiopathic constipation Expected: 05/04/2024, Expires: 05/04/2025 [facility] Work Phone: Comment on above: Expected: 05/04/2024, Expires: Start: 03-28-2024 End: 03-28-2024 Patient encounter procedure [facility] Comment on above: Arrived Start: 03-15-2024 End: 03-15-2024 Patient encounter procedure 03/15/2024 1:00 PM EST Procedure Visit [facility] [address] [place] [place] [address] Adan Suarez MD [address] [place] [address] [facility] Start: 03-01-2024 End: 03-01-2024 Patient encounter procedure [facility] Comment on above: Arrived Start: 01-10-2024 End: 01-09-2025 Comprehensive metabolic 2000 panel - Serum or Plasma Comprehensive metabolic panel Lab Routine Routine general medical examination at health care facility Primary osteoarthritis of both knees Expected: 01/10/2024 (Approximate), Expires: 01/09/2025 [facility] Comment on above: Expected: 01/10/2024 (Approximate), Expi res: 01/09/2025 Start: 01-10-2024 End: 01-09-2025 Lipid 1996 panel - Serum or Plasma Lipid panel Lab Routine 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) Expected: 01/10/2024 (Approximate), Expires: 01/09/2025 [facility] Comment on above: Expected: 01/10/2024 (Approximate), Expi res: 01/09/2025 Start: 01-10-2024 End: 01-10-2024 Patient encounter procedure [facility] Comment on above: Arrived Start: 01-10-2024 End: 01-09-2025 TSH W/REFLEX TO FT4 TSH W/REFLEX TO FT4 Lab Routine Hypothyroidism (acquired) ([facility]) Expected: 01/10/2024 (Approximate), Expires: 01/09/2025 [facility] Comment on above: Expected: 01/10/2024 (Approximate), Expi res: 01/09/2025 Start: 01-07-2024 Medicare Annual Wellness (AWV) Medicare Annual Wellness (AWV) [facility] Start: 01-03-2024 End: 01-03-2024 Patient encounter procedure 01/03/2024 1:30 PM EDT Office Visit [facility] [address] [place] [phone] Kathrine Forman, PA [address] [place] [address] Arrived [facility] Comment on above: Arrived Start: 12-26-2023 Influenza vaccination Influenza Vaccine (#1) [facility] CBC W Auto Different ial panel - Blood CBC and differential Lab Routine Routine general medical examination at health care facility Spondylosis of cervical region without myelopathy or radiculopathy Ordered: 01/10/2024 [facility] Work Phone: Comment on above: Ordered: 01/10/2024 Dermatopathology exam Dermatopat hology exam Pathology and Cytology Timed Basal cell carcinoma (BCC) of skin of other part of torso Release Upon Ordering for 1 Occurrences starting 03/01/2024 [facility] Work Phone: Comment on above: Release Upon Ordering for 1 Occurrences starting 03/01/2024 Dermatopathology exam Dermatopat hology exam Pathology and Cytology Timed Basal cell carcinoma (BCC) of skin of other part of torso Release Upon Ordering for 1 Occurrences starting 03/15/2024 [facility] [employer] Work Phone: Comment on above: Release Upon Ordering for 1 Occurrences starting 03/15/2024 Dermatopathology exam Dermatopat hology exam Pathology and Cytology Timed Neoplasm of unspecified behavior of bone, soft tissue, and skin Release Upon Ordering for 1 Occurrences starting 01/03/2024 [facility] [employer] Work Phone: Comment on above: Release Upon Ordering for 1 Occurrences starting 01/03/2024 Immunizations Immunization Date Immunization Notes Care Provider [facility] 01-11-2024 respiratory syncytia l virus monoclonal antibody (palivizumab), intramuscular Adan Suarez MD Work Phone: [facility] 01-03-2024 influenza, seasonal, injectable Bishop Turcios MD Work Phone: [facility] 01-03-2024 Pfizer Cardona Cap SARS -CoV-2 Vaccination Bishop Turcios MD Work Phone: [facility] 01-22-2023 influenza, seasonal, injectable Kathrine Dickson PA Work Phone: [facility] 01-22-2023 influenza virus vacc ine, unspecified formulation Kathrine Dickson PA Work Phone: [facility] 02-11-2022 Influenza, High-dose Seasonal, Quadrivalent, Preservative Free Kathrine Dickson PA Work Phone: [facility] 01-05-2022 pneumococcal polysaccharide vaccine, 23 valent Kathrine Dickson PA Work Phone: [facility] 01-05-2022 tetanus toxoid, redu yusra diphtheria toxoid, and acellular pertussis vaccine, adsorbed Kathrine Dickson PA Work Phone: [facility] 01-29-2021 Influenza, High-dose Seasonal, Quadrivalent, Preservative Free Kathrine Dickson PA Work Phone: [facility] 07-25-2020 zoster vaccine recombinant A lison Dickson PA Work Phone: [facility] 05-12-2020 zoster vaccine recombinant A lison Dickson PA Work Phone: [facility] 01-26-2020 Seasonal, quadrivale nt, recombinant, injectable influenza vaccine, preservative free Kathrine Dickson PA Work Phone: [facility] 02-08-2019 influenza, high dose seasonal, preservative-free Kathrine Dickson PA Work Phone: [facility] 12-23-2018 pneumococcal conjuga te vaccine, 13 valent Kathrine Dickson PA Work Phone: [facility] 01-24-2018 influenza, high dose seasonal, preservative-free Kathrine Dickson PA Work Phone: [facility] 12-28-2016 influenza, high dose seasonal, preservative-free Kathrine Dickson PA Work Phone: [facility] 11-25-2015 zoster vaccine, live Kathrine Dickson PA Work Phone: [facility] 12-25-2009 pneumococcal polysaccharide vaccine, 23 valent Kathrine Dickson PA Work Phone: [facility] Payers Date Payer Category Payer Self-pay 2022 Medicare [employer] MEDICARE ADVANTAGE COUNTS INCLUDE 234 BEDS AT THE [facility] MEDICARE ADVANTAGE [id number] 2022-Present [address] [place] [address] [id number] 2022 Medicare (Managed Care) [facility] ADVANTAGE [id number] 1959 Unknown [id number] 1940 Unknown [id number] 2.16.840.1.914939.3.579. 2.593 1942 Unknown [id number] 2.16.840.1.017074.3.579. 2.593 1942 Unknown [id number] 2.16.840.1.996232.3.579. 2.593 1942 Unknown [id number] 2.16.840.1.828617.3.579. 2.593 1942 Unknown [id number] 2.16.840.1.508535.3.579. 2.593 1942 Unknown [id number] 2.16.840.1.553330.3.579. 2.72 1942 Unknown [id number] 2.16.840.1.720311.3.579. 2.727 1942 Unknown [id number] 2.16.840.1.788873.3.579. 2.72 1942 Unknown [id number] 2.16.840.1.346452.3.579. 2.727 1942 Unknown [id number] 2.16.840.1.134743.3.579. 2.727 1942 Unknown [id number] 2.16.840.1.703699.3.579. 2.727 1942 Unknown [id number] 2.16.840.1.963394.3.579. 2.72 1942 Unknown [id number] 2.16.840.1.497471.3.579. 2.727 1942 Unknown [id number] 2.16.840.1.198920.3.579. 2.1259 1942 Unknown [id number] 2.16.840.1.932149.3.579. 2.1258 1942 Unknown [id number] 2.16.840.1.144266.3.579. 2.1258 1942 Unknown [id number] 2.16.840.1.770303.3.579. 2.1258 1942 Unknown [id number] 2.16.840.1.507711.3.579. 2.1258 1942 Unknown [id number] 2.16.840.1.991388.3.579. 2.1258 1942 Unknown [id number] 2.16.840.1.726261.3.579. 2.1258 1942 Unknown [id number] 2.16.840.1.319953.3.579. 2.1259 Social History Date Type Detail Facility Start: 12-16-2022 End: 05-17-2024 Tobacco smoking status NHIS Never smoked tobacco [facility] Start: 12-16-2022 Tobacco use and exposure Smokeless tobacco non-user [facility] Start: 01-10-2024 End: 05-18-2024 Alcoholic beverage intake Ex-drinker (finding) [facility] Start: 01-10-2024 End: 05-18-2024 History of Social function [facility] Start: 01-10-2024 End: 05-18-2024 Tobacco use panel [facility] Start: 1940 Sex assigned at Not on file [facility] Tobacco smoking status No Smokin g Status Entered [facility] Tobacco smoking status Never [facility] Functional Status Date Assessment Result Facility 05-05-2024 Functional Status N/A [facility] Clinical Notes 01-03-2024 to 05-18-2024 ANN-MARIE Corey - 05/18/2024 1:00 PM EST Note Date & Type Note Facility 05-18-2024 History of Present illness Narrative Images from the original note were not included. Subjective Patient ID: Valencia Brooks is a 83 y.o. male who presents for surgery follow up. Flowsheet Row Documentation from 05/08/2024 in [facility] with Bettye Srinivasan MA Hospital Information ED, Hospital or Chcf Facility Discharge? Hospital Patient has been contacted within two business days of discharge Yes Diagnosis cholecysitis,gallbladder rmoval Discharge Date 05/07/24 Discharged To: Home Setting Discharge Hospital [facility] Engagement Call Start Time 1054 Admission Date 05/04/24 Medications Discharge medications reviewed and reconciled from hospital? Yes Is the patient having any side effects they believe may be caused by any medication additions or changes? No Does the patient have all medications ordered at discharge? Yes Appointments Does the patient have a primary care provider? Yes Does the patient have any upcoming specialty appointments? Yes Self Management Patient Teaching Does the patient have access to their discharge instructions? Yes What is the patient's perception of their health status since discharge? Improving Wrap Up Call End Time 1058 He states he just had the drain taken out yesterday and he states he feels tired and not much of an appetite. He did fall yesterday morning in the bathroom, he fell off the toilet, he got too warm and felt like he was going to pass out so sat on the toilet and then fell off of it, does not think he lost consciousness but his eyes were rolling back on his head and he was mumbling. Is having normal BM's, not having to strain. Was able to sleep well last night. States he ate half of a grilled cheese sandwich yesterday and did ok. No nausea. Current Outpatient Medications on File Prior to Visit Medication Sig Dispense Refill aspirin 81 MG EC tablet Take 1 tablet by mouth 1 (one) time each day at the same time. Calcium Carbonate-Vit D-Min (Calcium 600+D3 Plus Minerals) 600-800 MG-UNIT tablet Take 1 tablet by mouth 1 (one) time each day at the same time. cyanocobalamin (Vitamin B-12) 100 MCG tablet Take 1 tablet by mouth 1 (one) time each day at the same time. Docusate Sodium (DSS) 100 MG capsule Take 1 capsule by mouth Daily as needed. ferrous sulfate 325 (65 Fe) MG tablet Take 1 tablet by mouth 1 (one) time each day at the same time. latanoprost (Xalatan) 0.005 % ophthalmic solution Administer 1 drop into both eyes in the morning. levothyroxine (Synthroid, Levoxyl) 137 MCG tablet TAKE 1 TABLET BY MOUTH ONCE DAILY IN THE MORNING BEFORE MEAL(S) 100 tablet 0 melatonin 5 MG tablet Take 1 tablet by mouth 1 (one) time each day at the same time PRN Multiple Vitamin (MULTIVITAMINS PO) Take 1 tablet by mouth 1 (one) time each day. omeprazole (PriLOSEC) [address] capsule TAKE 1 CAPSULE BY MOUTH ONCE DAILY AT THE SAME TIME EACH DAY 100 capsule 0 No current facility-administered medications on file prior to visit. I have reviewed and reconciled the history and medication list with the patient today. Allergies Allergen Reactions Bee Venom Meloxicam Hives Naproxen Hives Penicillin G Hives and Unknown Social History Tobacco Use Smoking status: Never Smokeless tobacco: Never Vaping Use Vaping status: Unknown Substance Use Topics Alcohol use: Not Currently Drug use: Never Family History Problem Relation Name Age of Onset Heart disease Mother Heart disease Father Past Medical History: Diagnosis Date Actinic keratosis Basal cell carcinoma GERD (gastroesophageal reflux disease) Hypothyroidism (CMS/HCC) Past Surgical History: Procedure Laterality Date FOOT SURGERY Bilateral 1994 bone spur removal surgery - Dr. Cifuentes GANGLION CYST EXCISION Right 09/13/2018 wrist Visit Vitals BP 124/62 Pulse 84 Resp 16 Ht 5' 8 Wt 173 lb 6.4 oz SpO2 95% BMI 26.37 kg/m Smoking Status Never BSA 1.94 m Review of Systems Constitutional: Positive for appetite change (Decreased) and fatigue. Negative for chills and fever. Respiratory: Negative for cough, shortness of breath and wheezing. Cardiovascular: Negative for chest pain, palpitations and leg swelling. Gastrointestinal: Positive for abdominal pain (Mostly when he coughs). Negative for constipation, diarrhea, nausea and vomiting. Skin: Negative for rash. Objective Physical Exam Constitutional: General: He is not in acute distress. Appearance: Normal appearance. HENT: Head: Normocephalic and atraumatic. Eyes: General: No scleral icterus. Cardiovascular: Rate and Rhythm: Normal rate and regular rhythm. Heart sounds: No murmur heard. Pulmonary: Effort: Pulmonary effort is normal. No respiratory distress. Breath sounds: Normal breath sounds. No wheezing, rhonchi or rales. Musculoskeletal: General: No swelling. Skin: General: Skin is warm and dry. Findings: Wound present. Comments: Surgical incisions are healing well on abdomen. Neurological: General: No focal deficit present. Mental Status: He is alert and oriented to person, place, and time. Psychiatric: Mood and Affect: Mood normal. Behavior: Behavior normal. Assessment/Plan Diagnoses and all orders for this visit: Decreased appetite Recommend Boost/Ensure drinks once a day while appetite is down. Patient has lost 8 pounds since 05/04/2024. Will recheck at his follow up in June. S/P cholecystectomy Drain was removed yesterday. He was told to follow up with the surgeon only as needed. Patient is healing well, no signs of infection at surgical incision sites. Pain is minimal. Having normal BM's. Continue to stay hydrated. Continue to use spirometer daily. Get up and walk around several times a day. No lifting > 10 pounds. Microcytic anemia - CBC; Future Seen on labs while in patient. Remained abnormal, but was mildly improved. Will recheck in two weeks Thrombocytopenia (CMS/HCC) - CBC; Future See above. The patient was seen today in follow up of recent hospital stay. All available hospital records were reviewed and discussed with the patient. Hospital discharge meds were reviewed. Any changes are noted above. Follow up for Appointment As Scheduled. documented in this encounter [facility] 05-07-2024 Note Progress Note-Physic roberth Patient: VALENCIA BROOKS Age: 83 years Sex: Male : 1940 Associated Diagnoses: None Author: Troy Mccullough Jr, DO Preoperative Information Anesthesia Preop Info: Time patient last ate or drank 05/05/2024 00:00:00. Anesthesia history: Patient history: None. Family history+: None. Informed consent: Signed by patient. Re-evaluation prior to induction: Initial evaluation reviewed: No significant change. Review of Systems Eye: Negative except as documented in history of present illness. Ear/Nose/Mouth/Throat: Negative except as documented in history of present illness. Respiratory: Negative except as documented in history of present illness. Cardiovascular: Negative except as documented in history of present illness. Musculoskeletal: Negative except as documented in history of present illness. Neurologic: Negative except as documented in history of present illness. Health Status Allergies: Allergic Reactions (Selected) Severity Not Documented Naproxen- Swelling. Penicillin- Rash and unknown. Problem list: All Problems Chronic GERD / SNOMED CT [id number] / Confirmed Histories Procedure history: No active procedure history items have been selected or recorded. Social History Social & Psychosocial Habits No Data Available . Physical Examination Airway: Mallampati classification: II (soft palate, fauces, uvula visible). Respiratory: adequate air exchange. Cardiovascular: Regular rhythm. Plan [place] [employer]esthesi[employer] (ASA) physical status classification: Class III, E. Anesthetic Preoperative Plan: Anesthesia General. [facility] Comment on above: Result Comment: Elec tronically Signed By: Troy Mccullough Jr, DO\.br\Date and Time Signed: 05/07/24 22:50 EST 05-07-2024 Note Progress Note-Physic roberth Patient: VALENCIA BROOKS Age: 83 years Sex: Male : 1940 Associated Diagnoses: None Author: Troy Mccullough Jr, DO Postoperative Information Postoperative disposition: Postoperative disposition: To PACU. Optimetrix number: Optimetrix number [id number]. Anesthetic utilized: General. Health Status Allergies: Allergic Reactions (Selected) Severity Not Documented Naproxen- Swelling. Penicillin- Rash and unknown. Physical Examination Vital Signs 05/05/2024 14:07 EST SpO2 93 % 05/05/2024 14:05 EST Temperature Temporal Artery 36.5 DegC Heart Rate Monitored 93 bpm Respiratory Rate Monitored 21 br/min Systolic Blood Pressure 120 mmHg Diastolic Blood Pressure 66 mmHg Mean Arterial Pressure, Cuff 84 mmHg SpO2 93 % 05/05/2024 13:55 EST Heart Rate Monitored 98 bpm Respiratory Rate Monitored 16 br/min Systolic Blood Pressure 116 mmHg Diastolic Blood Pressure 67 mmHg Mean Arterial Pressure, Cuff 83 mmHg SpO2 92 % 05/05/2024 13:53 EST SpO2 88 % LOW 05/05/2024 13:52 EST SpO2 87 % LOW 05/05/2024 13:50 EST Heart Rate Monitored 97 bpm Respiratory Rate Monitored 18 br/min Systolic Blood Pressure 113 mmHg Diastolic Blood Pressure 67 mmHg Mean Arterial Pressure, Cuff 82 mmHg SpO2 96 % 05/05/2024 13:45 EST Heart Rate Monitored 93 bpm Respiratory Rate Monitored 17 br/min Systolic Blood Pressure 117 mmHg Diastolic Blood Pressure 59 mmHg Mean Arterial Pressure, Cuff 78 mmHg SpO2 98 % 05/05/2024 13:42 EST SpO2 98 % 05/05/2024 13:40 EST Heart Rate Monitored 97 bpm Respiratory Rate Monitored 20 br/min Systolic Blood Pressure 114 mmHg Diastolic Blood Pressure 53 mmHg LOW Mean Arterial Pressure, Cuff 73 mmHg SpO2 97 % 05/05/2024 13:35 EST Heart Rate Monitored 96 bpm Respiratory Rate Monitored 18 br/min Systolic Blood Pressure 114 mmHg Diastolic Blood Pressure 53 mmHg LOW Mean Arterial Pressure, Cuff 73 mmHg SpO2 97 % 05/05/2024 13:30 EST Heart Rate Monitored 96 bpm Respiratory Rate Monitored 16 br/min Systolic Blood Pressure 118 mmHg Diastolic Blood Pressure 57 mmHg LOW Mean Arterial Pressure, Cuff 77 mmHg SpO2 96 % 05/05/2024 13:28 EST Temperature Temporal Artery 36.4 DegC Heart Rate Monitored 97 bpm Respiratory Rate Monitored 26 br/min Systolic Blood Pressure 116 mmHg Diastolic Blood Pressure 68 mmHg Blood Pressure Location Left arm Mean Arterial Pressure, Cuff 84 mmHg SpO2 94 % Pain Assessment: Controlled. General: Awake, Alert, Appropriate. Respiratory: Adequate air exchange. Cardiovascular: Stable, Normal peripheral perfusion. Neurological: Normal sensory function, Normal motor function. Assessment Anesthetic outcome No anesthetic complications noted. Adequate pain relief. able to void without difficulty, able to ambulate with assist, tolerating PO intake, no N/V. Review / Management Condition: Stable. Plan Transfer/Discharge: Transfer/Discharge Discharge when meets criteria ( From PACU to floor ). [facility] Comment on above: Result Comment: Elec tronically Signed By: Jamel Hurley DO, Troy Patricia\.shiva\Date and Time Signed: 05/07/24 22:49 EST 05-07-2024 Evaluation + Plan note Extrac aruna from: Title:Progress/SOAP Note Author:Bella LEONARD, Jamin Skelton. Date:05/07/24 1. Acute cholecystitis (K81. 0: Acute cholecystitis) Ordered: Adjustment Inpatient Discharge Patient 2. Anemia (D64.9: Anemia, unspecified) Ordered: Discharge Patient Orders: Capillary Glucose POC Capillary Glucose POC Capillary Glucose POC Capillary Glucose POC Fluid Culture Height Peripheral IV Insertion Pulse Oximetry Strict Intake and Output Weight - Continue regular diet and bowel regimen (Senna, Colace, and PRN Dulcolax). - Tylenol 650 mg q 6 hrs, Oxy 2.5-5 mg q4hrs prn for moderate/severe pain, Dilaudid 0.5mg q 4 hours prn for breakthrough pain - HLIV - Maintain O2 sats >94%. Continue pulmonary toilet, encourage IS. - Continue Ancef and Flagyl for acute cholecystitis, patient will need antibiotics 4 days postop. Plan to discharge home on Cipro Flagyl orally for two more days. - No indication for transfusion. Patient was anemic on admission, stable Hb from prior labs. - Continue SCDs and lovenox for DVT ppx. - Maintain PIVs, KELVIN drain. KELVIN drain will remain in place until clinic follow up. - No acute cardiac issues - No indication for ulcer ppx - No glycemic issues Extracted from: Title:Discharge Note Author:Bella LEONARD, Enrrique Chino Date:05/07/24 Stable Home As tolerated Prescriptions Cipro 500 mg Tab, 500 mg= 1 tab(s), Oral, q12hr Colace 100 mg Cap, 100 mg= 1 cap(s), Oral, BID Flagyl 500 mg Tab, 500 mg= 1 tab(s), Oral, q8hr oxyCODONE 5 mg Tab, 2.5 mg= 0.5 tab(s), Oral, q6hr, PRN senna 8.6 mg Tab, 8.6 mg= 1 tab(s), Oral, Once a day (at bedtime) Home aspirin 81 mg oral capsule, 81 mg= 1 cap(s), Oral, Daily calcium citrate, 600 mg, Oral, BID diphenhydrAMINE, 25 mg, Oral, PRN ferrous sulfate, 65 mg, Oral, Daily levothyroxine 137 mcg (0.137 mg) Tab, 137 mcg= 1 tab(s), Oral, Daily melatonin, 5 mg, Oral, Once a day (at bedtime) Multiple Vitamins oral capsule, 1 cap(s), Oral, Daily omeprazole 40 mg Cap-DR, 40 mg= 1 cap(s), Oral, Daily Tylenol 8 HR Arthritis Pain, 650 mg, Oral, PRN Vitamin B12, 500 mcg, Oral, Daily With When Contact Information trauma clinic 05/17/2024 09:45 AM EST [facility], second floor, [address] [place] [address]- [phone] Additional Instructions: Call to schedule/confirm followup appointment BISHOP WILLIAM [address] [place] [id number] [facility] (1) Additional Instructions: Follow-up with PCP for chronic medical conditions [facility] Drain[facility] Care(CUSTOM) Cholecystitis Minimally Invasive Cholecystectomy, Care After, [id number] Extracted from: Title:Progress/SOAP Note Author:Quinn Piper PA-C Date:05/06/24 1. Acute cholecystitis (K81. 0: Acute cholecystitis) Ordered: HYDROmorphone, 0.5 mg = 0.5 mL, Injection, IV Push, q4hr PRN Breakthrough Pain, Routine, Start date 05/05/24 16:43:00 EST, 05/05/24 16:43:00 EST 2. Anemia (D64.9: Anemia, unspecified) Ordered: - Continue regular diet and bowel regimen (Senna, Colace, and PRN Dulcolax). - Tylenol 650 mg q 6 hrs, Oxy 2.5-5 mg q4hrs prn for moderate/severe pain, Dilaudid 0.5mg q 4 hours prn for breakthrough pain - HLIV - Maintain O2 sats >94%. Continue pulmonary toilet, encourage IS. Wean oxygen as appropriate. - Continue Ancef and Flagyl for acute cholecystitis, patient will need antibiotics 4 days postop. Plan to discharge home on Cipro Flagyl orally. - No indication for transfusion. Patient was anemic on admission, slight downtrending of hemoglobin postoperatively, not unexpected. Continue to monitor with CBC in the morning. - Continue SCDs and lovenox for DVT ppx. - Maintain PIVs, KELVIN drain - No acyte cardiac issues - No indication for ulcer ppx - No glycemic issues - anticipate DC in the next 24-48 hours Mallorie Piper PA-C Trauma Surgery/Surgical Critical Care/Emergency General Surgery This patient's plan of care was discussed with Trauma/Emergency General Surgery attending, Dr. Blanco Extracted from: Title:ANES Post-operative Note---General Author: Troy Mccullough Jr, DO Date:05/05/24 Plan Transfer/Discharge: Transfer/Discharge Discharge when meets criteria ( From PACU to floor ). Extracted from: Title:ANES Pre-operative Note 2022 Author:Troy Mccullough Jr, DO Date:05/05/24 Plan [place] [employer] (ASA) physical status classification: Class III, E. Anesthetic Preoperative Plan: Anesthesia General. Extracted from: Title:APSO Note Author:Bella LEONARD, Enrrique Fox te:05/05/24 1. Acute cholecystitis (K81. 0: Acute cholecystitis) OR today for lap cholecystectomy No need for cholangiogram based on labs Continue ancef for antibiotic treatment of acute cholecystitis, patient is PCN allergic Continue NPO status until post op Possible discharge later today versus tomorrow Remain on inpatient floor status Ordered: cefazolin + Sodium Chloride 0.9% intravenous solution 50 mL, 2 gram = 1 EA, Powder-Inj, IV Piggyback, q8hr, Routine, Start date 05/05/24 4:00:00 EST, 100 mL/hr, Infuse over 30 minute(s) Orders: bisacodyl, 10 mg = 1 supp, Supp, Rectal, Daily PRN Constipation, Routine, Start date 05/05/24 1:07:00 EST, 05/05/24 1:07:00 EST enoxaparin, 30 mg = 0.3 mL, Injection, SubCutaneous, BID, Routine, Start date 05/05/24 9:00:00 EST, 05/05/24 1:07:00 EST HYDROmorphone, 0.5 mg = 0.5 mL, Injection, IV Push, q4hr PRN Pain 8-10 for 2 day(s), Stop date 05/07/24 1:06:00 EST, Routine, Start date 05/05/24 1:07:00 EST, Pain score 8-10, 05/05/24 1:07:00 EST Lactated Ringers Injection 1,000 mL, 1,000 mL, IV, 100 mL/hr, Routine, Start date 05/05/24 1:07:00 EST, 10 hour(s), Total volume (mL): 1,000 ABO/Rh ABO/Rh History Check ABO/Rh Retype Antibody Screen Basic Metabolic Panel Below the Knee Intermittent Pneumatic Compression Device Blood Bank ID# CBC w/ Auto Diff ECG 12 Lead Adult eGFR Extra Green Li Tube Extra Lav Tube Height Hepatic Function Panel Notify Provider Vital Signs NPO Diet Peripheral IV Insertion PT & PTT Pulse Oximetry Resuscitation Status - Full Strict Intake and Output Up ad Porsha Vital Signs Weight XR Chest 2 Views Extracted from: Title:Admission H & P Author:Enrrique Balnco MD Date:05/05/24 83 year old male with acute cholecystitis Plan for OR in the morning No imaging came with patient, will attempt to locate Pain control overnight NPO now Pre-op work up ordered Discussed with patient and son, will still need consented Discharge to home after surgery if tolerating pain well Patient to be admitted to [facility] under inpatient status Ordered: ABO/Rh Basic Metabolic Panel Below the Knee Intermittent Pneumatic Compression Device CBC w/ Auto Diff ECG 12 Lead Adult Height Hepatic Function Panel Notify Provider Vital Signs NPO Diet Peripheral IV Insertion PT PT & PTT Pulse Oximetry Resuscitation Status - Full Strict Intake and Output Up ad Porsha Vital Signs Weight XR Chest 2 Views Addendum by Bella LEONARD, Jamin Holloway on May 05, 2024 01:12:52 EST Imipenem given at outside hospital due to reported PCN allergy Will give ancef here until surgery is complete [facility] 01-12-2025 NoteMicrobiology PROCEDURE: Fluid Culture [R1] SOURCE: Fluid BODY SITE: Abdomen COLLECTED DATE/TIME: 05/05/2024 12:10 EST RECEIVED DATE/TIME: 05/05/2024 13:47 EST START DATE/TIME: 05/05/2024 13:47 EST FREE TEXT SOURCE: Gallbladder fluid for culture Enrrique Blanco MD, MD, Peter A. FINAL REPORTS Final Report [] Verified Date/Time: 05/07/2024 09:53 EST 1+ Escherichia coli 1+ Escherichia coli #2 Different Biotype. STAINS Gram Stain Report [] Verified Date/Time: 05/06/2024 08:50 EST Occasional Gram Negative Rods SUSCEPTIBILITY RESULTS LEGEND: S=Susceptible, N/R=Not Reported, Blank=Data not available, or drug not advisable or tested, I=Intermediate, ESBL=Extended spectrum beta-lactamase, R=Resistant, TFG=Thymidine-dependent strain, SHAMA=Beta-lactamase positive, LAMAR=mcg/m;(mg/L), S*=Predicted susceptible interp, R*=Predicted resistant interp EC EC #2 Antibiotic LAMAR Dilutn LAMAR Interp LAMAR Dilutn LAMAR Interp Ampicillin <=8 S <=8 S Ampicillin/ <=8/4 S <=8/4 S Sulbactam Aztreonam <=4 S <=4 S Cefazolin <=2 S <=2 S Cefepime <=2 S <=2 S Ceftazidime <=1 S <=1 S Ceftazidime/ <=8 S <=8 S Avibactam Ceftriaxone <=1 S <=1 S Cefuroxime <=4 S <=4 S Ciprofloxacin <=0.25 S <=0.25 S Ertapenem <=0.5 S <=0.5 S Gentamicin 4 S <=2 S Levofloxacin <=0.5 S <=0.5 S Meropenem <=1 S <=1 S Piperacillin/ <=8 S <=8 S Tazobactam Tetracycline <=4 S >8 R Tobramycin <=2 S <=2 S Trimethoprim/ <=2/38 S <=2/38 S Sulfa Performing Locations R1: This test was performed at: [facility], [address] [place] [address], [id number] , , BxggmaMer[facility] Health [facility]iffin HospitalComment on above:Performed By: #### [id number] #### [facility] [address] [place], [place] [id number] NoteProgress Note-Physician Basic Information 83 yo M s/p subtotal cholecystectomy 05/05/[address] Blanco Subjective No acute events overnight, patient's pain better controlled today. No nausea or vomiting. No fevers. VSS. Patient KELVIN drain with 120 cc blood-tinged serous output Leukocytosis downtrending 11.5 (19.9) Review of Systems A twelve point ROS was performed. Pertinent positive and negative findings as mentioned in the HPI. Objective Vitals & Measurements T: 36.7 ???C(Oral) TMIN: 36.7 ???C(Oral) TMAX: 37.2 ???C(Axillary) HR: 92(Monitored) RR: 18 BP: 127/66 SpO2: 92% WT: 80 kg Intake & Output This visit (24 hour periods starting at 07:00 EST) 05/07/24 * 05/06/24 05/05/24 Total Summary Intake mL -- -- 1,130.77 Output mL -- 1,320 350 Fluid Balance -- -1,320 780.77 Intake (14) Lactated Ringers Injection mL -- -- 800 Oral Intake mL -- -- -- Sodium Chloride 0.9%, cefazolin mL -- -- 50 albumin human mL -- -- 250 dexamethasone mL -- -- 1 ephedrine mL -- -- 0.2 fentanyl mL -- -- 1 hydromorphone mL -- -- 1.5 lidocaine mL -- -- 3 ondansetron mL -- -- 4 phenylephrine mL -- -- 0.07 propofol mL -- -- 13 rocuronium mL -- -- 5 sugammadex mL -- -- 2 Total -- -- 1,130.77 Output (3) EBL Surgery mL -- -- 200 Other: reid Bolden Abdomen Right mL -- 120 150 Urine Voided mL -- 1,200 -- Total -- 1,320 350 Counts (0) * This column has not completed the indicated time period. Physical Exam GENERAL: alert, pleasant, conversational. HEENT: normocephalic. oral mucosa moist. CARDIOVASCULAR: RRR. PULMONARY: CTAB. breathing comfortably. ABDOMINAL: abdomen is appropriately tender, nondistended. Lap kennedy incisions C/D/I with skin glue overlying. No erythema, drainage, induration, fluctuance noted. KELVIN drain with bloody serous drainage, no bile. EXTREMITIES: moves all extremities with equal strength NEUROLOGICAL: AxO x3 Lab Results WBC: 11.5 E9/L High (05/07/24 05:33:00) RBC: 3.8 E12/L Low (05/07/24 05:33:00) HGB: 9 gm/dL Low (05/07/24 05:33:00) Hct: 27.9 % Low (05/07/24 05:33:00) MCV: 72.6 fL Low (05/07/24 05:33:00) MCH: 23.3 pg Low (05/07/24 05:33:00) MCHC: 32.1 gm/dL (05/07/24 05:33:00) RDW: 19.6 % High (05/07/24 05:33:00) Platelet: 126 E9/L Low (05/07/24 05:33:00) MPV: 9.1 fL (05/07/24 05:33:00) Neutro Auto: 78.3 % High (05/07/24 05:33:00) Lymph Auto: 11.8 % Low (05/07/24 05:33:00) [place] Auto: 8.8 % (05/07/24 05:33:00) Eos Auto: 0.8 % (05/07/24 05:33:00) Basophil Auto: 0.3 % (05/07/24 05:33:00) Neutro Absolute: 9 E9/L High (05/07/24 05:33:00) Lymph Absolute: 1.3 E9/L (05/07/24 05:33:00) [place] Absolute: 1 E9/L (05/07/24 05:33:00) Eos Absolute: 0.1 E9/L (05/07/24 05:33:00) Basophil Absolute: 0 E9/L (05/07/24 05:33:00) RBC Morph: SEE MORPHOLOGY (05/07/24 05:33:00) Hypochromasia: PRESENT (05/07/24 05:33:00) Elliptocytes: PRESENT (05/07/24 05:33:00) Teardrop Cell: PRESENT (05/07/24 05:33:00) PT: 15.3 second(s) High (05/06/24 13:23:00) INR: 1.36 (05/06/24 13:23:00) PTT: 34.2 second(s) (05/06/24 13:23:00) Glucose Lvl: 109 mg/dL (05/07/24 05:33:00) BUN: 17 mg/dL (05/07/24 05:33:00) Creatinine: 0.8 mg/dL (05/07/24 05:33:00) eGFR: 89 mL/min/1.73 m2 (05/07/24 05:33:00) BUN/Creat Ratio: 21 High (05/07/24 05:33:00) Sodium Lvl: 136 mmol/L (05/07/24 05:33:00) Potassium Lvl: 3.6 mmol/L (05/07/24 05:33:00) Chloride: 104 mmol/L (05/07/24 05:33:00) CO2: 26 mmol/L (05/07/24 05:33:00) AGAP: 10 mEq/L (05/07/24 05:33:00) Calcium Lvl: 8.2 mg/dL Low (05/07/24 05:33:00) Alk Phos: 58 Int._Unit/L (05/07/24 05:33:00) ALT: 8 Int._Unit/L (05/07/24 05:33:00) AST: 15 Int._Unit/L (05/07/24 05:33:00) Total Protein: 6 gm/dL (05/07/24 05:33:00) Albumin Lvl: 3.3 gm/dL (05/07/24 05:33:00) Globulin: 2.7 gm/dL (05/07/24 05:33:00) A/G Ratio: 1.2 (05/07/24 05:33:00) Bili Total: 0.6 mg/dL (05/07/24 05:33:00) Bili Direct: 0.1 mg/dL (05/07/24 05:33:00) Bili Indirect: 0.5 mg/dL (05/07/24 05:33:00) Glucose Cap: 143 mg/dL High (05/06/24 21:04:00) POC Device SN: [id number] (05/06/24 21:04:00) POC User ID: [id number] (05/06/24 21:04:00) POC Username: [email or web address] HUITRON (05/06/24 21:04:00) Diagnostic Results None new Images None new Assessment/Plan 1. Acute cholecystitis (K81.0: Acute cholecystitis) Ordered: Adjustment Inpatient Discharge Patient 2. Anemia (D64.9: Anemia, unspecified) Ordered: Discharge Patient Orders: Capillary Glucose POC Capillary Glucose POC Capillary Glucose POC Capillary Glucose POC Fluid Culture Height Peripheral IV Insertion Pulse Oximetry Strict Intake and Output Weight - Continue regular diet and bowel regimen (Senna, Colace, and PRN Dulcolax). - Tylenol 650 mg q 6 hrs, Oxy 2.5-5 mg q4hrs prn for moderate/severe pain, Dilaudid 0.5mg q 4 hoursprn for breakthro (more content not included)...[facility] Hospital[facility]:Result Comment: Electronically Signed By: Bella LEONARD, Enrrique Chino\.br\Date and Time Signed: 05/07/2507:10 [id number] NoteDischarge Summary Admission and Discharge Information Admit Date/Time:05/05/2024 14:00 Admitting Physician - Enrrique Blanco MD Admitting Diagnoses: Discharge Order Date Discharge Patient - Ordered -- 05/07/24 7:59:00 EST, Acute cholecystitis Anemia Discharge Diagnoses 1. Acute cholecystitis, 05/05/2024 2. Anemia, 05/05/2024 Procedure History 05/05: Laparoscopic subtotal cholecystectomy Hospital Course Significant Findings Gangrenous gallbladder with perforation s/p laparoscopic subtotal cholecystectomy on 05/05. Patient with persistent pain on POD1 which improved through the course of the day. He was feeling much better on POD. Drain remains serosanguinous and will remain in place until clinic follow up on 05/17. His g irlfriend will be arriving later this morning and drain teaching will be performed by nursing priorto his discharge. Procedures and Treatment Provided 05/05: Laparoscopic subtotal cholecystectomy Services Consulted None Physical Exam Vitals & Measurements T: 36.7 ???C(Oral) TMIN: 36.7 ???C(Oral) TMAX: 37.2 ???C(Axillary) HR: 92(Monitored) RR: 18 BP: 127/66 SpO2: 92% WT: 80 kg NAD, comfortable in bed Lungs clear RRR Abd soft, port sites with dermabond intact, drain in RUQ with serosanguinous output, no bile Laboratory Results WBC downtrending LFTs are normal BMP normal Tests Performed CXR Immunizations This Visit None Discharge Plan Patient Discharge Condition Stable Discharge Disposition Home Discharge Diet As tolerated Discharge Medication List Prescriptions Cipro 500 mg Tab, 500 mg= 1 tab(s), Oral, q12hr Colace 100 mg Cap, 100 mg= 1 cap(s), Oral, BID Flagyl 500 mg Tab, 500 mg= 1 tab(s), Oral, q8hr oxyCODONE 5 mg Tab, 2.5 mg= 0.5 tab(s), Oral, q6hr, PRN senna 8.6 mg Tab, 8.6 mg= 1 tab(s), Oral, Once a day (at bedtime) Home aspirin 81 mg oral capsule, 81 mg= 1 cap(s), Oral, Daily calcium citrate, 600 mg, Oral, BID diphenhydrAMINE, 25 mg, Oral, PRN ferrous sulfate, 65 mg, Oral, Daily levothyroxine 137 mcg (0.137 mg) Tab, 137 mcg= 1 tab(s), Oral, Daily melatonin, 5 mg, Oral, Once a day (at bedtime) Multiple Vitamins oral capsule, 1 cap(s), Oral, Daily omeprazole 40 mg Cap-DR, 40 mg= 1 cap(s), Oral, Daily Tylenol 8 HR Arthritis Pain, 650 mg, Oral, PRN Vitamin B12, 500 mcg, Oral, Daily Follow-up With When Contact Information trauma clinic 05/17/2024 09:45 AM EST [address] [facility] second [facility], [address] [place] [address]- [phone] Additional Instructions: Call to schedule/confirm followup appointment BISHOP TURCIOS [address] [place] [phone] (1) Additional Instructions: Follow-up with PCP for chronic medical conditions Patient Education [facility] Drainage T[facility] Care(CUSTOM) Cholecystitis Minimally Invasive Cholecystectomy, Care After, [id number] [facility]:Result Comment: Electronically Signed By: Bella LEONARD, Enrrique Hartley.br\Date and Time Signed: 05/07/2507:05 [id number] NoteProgress Note-Physician Basic Information 83 yo M s/p subtotal cholecystectomy 05/05/[address] Blanco Subjective No acute events overnight, patient's pain better controlled today. No nausea or vomiting. No fevers. VSS. Patient KELVIN drain with 150 cc blood-tinged serous output Pt with mils wheeze and on 2L O2 NC - reaching ~1000 on IS Leukocytosis downtrending 19.9 (20.8) Review of Systems All organ systems are reviewed. Pertinent positive and negative findings as mentioned in the HPI. Objective Vitals & Measurements T: 37.2 ???C(Axillary) TMIN: 36.4 ???C(Temporal Artery) TMAX: 37.2 ???C(Axillary) HR: 90(Monitored)RR: 16 BP: 115/64 SpO2: 96% HT: 175.26 cm WT: 79.6 kg Intake & Output This visit (24 hour periods starting at 07:00 EST) 05/06/24 * 05/05/24 05/04/24 Total Summary Intake mL -- 1,130.77 0.5 Output mL -- 350 400 Fluid Balance -- 780.77 -399.5 Intake (14) Lactated Ringers Injection mL -- 800 -- Oral Intake mL -- -- -- Sodium Chloride 0.9%, cefazolin mL -- 50 -- albumin human mL -- 250 -- dexamethasone mL -- 1 -- ephedrine mL -- 0.2 -- fentanyl mL -- 1 -- hydromorphone mL -- 1.5 0.5 lidocaine mL -- 3 -- ondansetron mL -- 4 -- phenylephrine mL -- 0.07 -- propofol mL -- 13 -- rocuronium mL -- 5 -- sugammadex mL -- 2 -- Total -- 1,130.77 0.5 Output (3) EBL Surgery mL -- 200 -- Other: reid Bolden Abdomen Right mL -- 150 -- Urine Voided mL -- -- 400 Total -- 350 400 Counts (0) * This column has not completed the indicated time period. Physical Exam GENERAL: alert, pleasant, conversational. HEENT: normocephalic. oral mucosa moist. CARDIOVASCULAR: RRR. PULMONARY: CTAB. breathing comfortably on 2L O2. Slight expiratory wheeze. ABDOMINAL: abdomen is appropriately tender, nondistended. Lap kennedy incisions C/D/I with skin glue overlying. No erythema, drainage, induration, fluctuance noted. KELVIN drain with bloody serous drainage, no bile. EXTREMITIES: moves all extremities with equal strength NEUROLOGICAL: AxO x3 Lab Results WBC: 19.9 E9/L High (05/06/24 06:18:00) RBC: 3.5 E12/L Low (05/06/24 06:18:00) HGB: 8.2 gm/dL Low (05/06/24 06:18:00) Hct: 25.5 % Low (05/06/24 06:18:00) MCV: 72.6 fL Low (05/06/24 06:18:00) MCH: 23.2 pg Low (05/06/24 06:18:00) MCHC: 32 gm/dL (05/06/24 06:18:00) RDW: 19.4 % High (05/06/24 06:18:00) Platelet: 109 E9/L Low (05/06/24 06:18:00) MPV: 8.8 fL (05/06/24 06:18:00) Neutro Auto: 87.7 % High (05/06/24 06:18:00) Lymph Auto: 4 % Low (05/06/24 06:18:00) [place] Auto: 8.1 % (05/06/24 06:18:00) Eos Auto: 0 % (05/06/24 06:18:00) Basophil Auto: 0.2 % (05/06/24 06:18:00) Neutro Absolute: 17.4 E9/L High (05/06/24 06:18:00) Lymph Absolute: 0.8 E9/L Low (05/06/24 06:18:00) [place] Absolute: 1.6 E9/L High (05/06/24 06:18:00) Eos Absolute: 0 E9/L (05/06/24 06:18:00) Basophil Absolute: 0 E9/L (05/06/24 06:18:00) RBC Morph: SEE MORPHOLOGY (05/06/24 06:18:00) Microcyte: PRESENT (05/06/24 06:18:00) Poikilocytosis: PRESENT (05/06/24 06:18:00) Hypochromasia: PRESENT (05/06/24 06:18:00) Acanthocytes: PRESENT (05/06/24 06:18:00) Ovalocytes: PRESENT (05/06/24 06:18:00) Glucose Lvl: 136 mg/dL (05/06/24 06:18:00) BUN: 17 mg/dL (05/06/24 06:18:00) Creatinine: 0.8 mg/dL (05/06/24 06:18:00) eGFR: 89 mL/min/1.73 m2 (05/06/24 06:18:00) BUN/Creat Ratio: 21 High (05/06/24 06:18:00) Sodium Lvl: 135 mmol/L (05/06/24 06:18:00) Potassium Lvl: 3.9 mmol/L (05/06/24 06:18:00) Chloride: 104 mmol/L (05/06/24 06:18:00) CO2: 27 mmol/L (05/06/24 06:18:00) AGAP: 8 mEq/L (05/06/24 06:18:00) Calcium Lvl: 8.3 mg/dL Low (05/06/24 06:18:00) Alk Phos: 54 Int._Unit/L (05/06/24 06:18:00) ALT: 9 Int._Unit/L (05/06/24 06:18:00) AST: 16 Int._Unit/L (05/06/24 06:18:00) Total Protein: 5.8 gm/dL Low (05/06/24 06:18:00) Albumin Lvl: 3.2 gm/dL Low (05/06/24 06:18:00) Globulin: 2.6 gm/dL (05/06/24 06:18:00) A/G Ratio: 1.2 (05/06/24 06:18:00) Bili Total: 0.6 mg/dL (05/06/24 06:18:00) Bili Direct: 0.1 mg/dL (05/06/24 06:18:00) Bili Indirect: 0.5 mg/dL (05/06/24 06:18:00) Glucose Cap: 108 mg/dL High (05/06/24 08:25:00) POC Device SN: [id number] (05/06/24 08:25:00) POC User ID: [id number] (05/06/24 08:25:00) POC Username: [email or web address] Username (05/06/24 08:25:00) ABO/Rh Retype Interp: B POS (05/06/24 06:18:00) Assessment/Plan 1. Acute cholecystitis (K81.0: Acute cholecystitis) Ordered: HYDROmorphone, 0.5 mg = 0.5 mL, Injection, IV Push, q4hr PRN Breakthrough Pain, Routine, Start date05/05/24 16:43:00 EST, 05/05/24 16:43:00 EST 2. Anemia (D64.9: Anemia, unspecified) Ordered: - Continue regular diet and bowel regimen (Senna, Colace, and PRN Dulcolax). - Tylenol 650 mg q 6 hrs, Oxy 2.5-5 mg q4hrs prn for moderate/severe pain, Dilaudid 0.5mg q 4 hoursprn for breakthrough pain - HLIV - Mainta (more content not included)...[facility] HospitalComment on above:Result Comment: Electronically Signed By: Mallorie Piper PA-C\.br\Date and Time Signed: 05/06/24 09:27 EST\.br\Electronically Co-Signed By: Bella LEONARD, Enrrique Chino\.br\Date and Time Co-Signed: 05/06/24 16:56 [id number] Hospital Discharge instructions Patient Education 05/06/2024 09:13:28 Kelley Denney [facility] Drainage Tube Care(CUSTOM) [place], [place] Marty Benson MD, FACS DISCHARGE INSTRUCTIONS CARING FOR YOUR REID-BOLDEN DRAINAGE TUBE You have been discharged with a Reid-Bolden drainage tube. This tube will help healing and reducethe risk of infection by removing fluid through your incision. It is attached to a drain or collection device where you will see fluid and blood. A bandage at the incision site will protect the open area from infection. You may feel some burning and pulling from the stitch that holds the tube in place. Your drain will be removed when the amount of drainage lessens, usually 5-7 days after surgery.The jerald will be removed in 10-14 days after surgery. HOME CARE Don t sleep on the same side as the tube. Secure the tube and bag inside your clothing. This will prevent the tube form being pulled out. Empty your drain at least three times a day: in the morning, afternoon and before bed. Empty it more often as needed. Strip the tubing as much as possible. Lift the opening on the drain. Drain the fluid into a measuring cup. Record the amount of fluid and time that you empty the drain. Share this information with your doctor on your next visit. Squeeze the bulb with your hands until all the air is out of the bulb. Close the opening. Change the dressing around the tube every day. Wash your hands. Remove the old bandage. You may shower and get the drain site wet. Put a new bandage on the incision and tube site. Place one gauze under the drain tube and one over the drain tube and tape it in place. FOLLOW-UP Make a follow-up appointment with your doctor as directed on your discharge paperwork. WHEN TO CALL YOUR DOCTOR call immediately if you have any of the following: Pain, swelling, or fluid around the tube Stitches that become infected Redness or warmth around the incision Tube that falls out Nausea and vomiting Foul smell from incision site Chills or fever above 100 degrees F Fluid draining from your incision. An incision that does not heal Drainage that changes from light pink to dark red KELVIN OUTPUT IN CC'S #1 AMAFTERNOONPM #2 AMAFTERNOONPM Written: 9-09 05/06/2024 09:13:06 Cholecystitis Cholecystitis Cholecystitis is inflammation of the gallbladder. Cholecystitis is often called a gallbladder attack. The gallbladder is a pear-shaped organ that lies beneath the liver on the right side of the body.The gallbladder stores a fluid that helps the body digest fats (bile). If bile builds up in your gallbladder, your gallbladder becomes inflamed and can develop a serious infection. This condition may occur suddenly. Cholecystitis is a serious condition and requires treatment. What are the causes? The most common cause of this condition is gallstones. Gallstones can block the tube (duct) that carries bile out of your gallbladder. This causes bile to build up. Other causes include: Damage to the gallbladder due to decreased blood flow. Infection in the bile duct. Scars, kinks, or adhesions in the bile duct. Tumors in the liver, pancreas, or gallbladder. What increases the risk? You are more likely to develop this condition if: You are female and between the ages of 55 62. You take control pills or use estrogen. You take certain medicines that increase your likelihood of developing gallstones. You are obese. You have a severe reaction to an infection (sepsis). The infection may be bacterial, fungal, parasitic, or viral. You have been hospitalized due to trauma, such as a burn or critical illness. You have not eaten or drank for a long period of time (prolonged fasting). What are the signs or symptoms? Symptoms of this condition include: Tenderness in the upper right part of the abdomen. A lump over the gallbladder. Bloating in the abdomen. Nausea. Vomiting. Fever. Chills. How is this diagnosed? This condition is diagnosed with a medical history and physical exam. You may also have other tests, including: Imaging tests, such as: ?An ultrasound of the abdomen. ?A CT scan of the abdomen. ?A gallbladder nuclear scan (HIDA cholescintigraphy). This allows your health care provider to see the bile moving from your liver to your gallbladder and to your small intestine. ?MRI. Blood tests, such as: ?A complete blood count. The white blood cell count may be higher than normal. ?C-reactive protein (CRP) test. The level of CRP will be higher if there is an infection. ?Liver function tests. Certain types of gallstones cause some results to be higher than normal. How is this treated? Treatment may include: Pain medicine and IV fluids. Not eating or drinking (fasting). This helps to take stress off of your gallbladder. Antibiotic medicine. This is usually given through an IV. Surgery to remove your gallbladder (cholecystectomy). Gallbladder drainage. In this procedure, a tube is placed into the gallbladder to drain fluid. Thismay be done for people with moderate to severe cholecystitis who cannot have surgery. Follow these instructions at home: Medicines Take zxbq-lvg-vofmava and prescription medicines only as told by your health care provider. If you were prescribed an antibiotic medicine, take it as told by your health care provider. Do notstop taking the antibiotic even if you start to feel better. General instructions Follow instructions from your health care provider about what to eat or drink. When you are allowedto eat, avoid eating or drinking anything that triggers your symptoms. Do not use any products that contain nicotine or tobacco. These products include cigarettes, chewing tobacco, and vaping devices, such as e-cigarettes. If you need help quitting, ask your health careprovider. Keep all follow-up visits. This is important. Contact a health care provider if: Your pain is not controlled with medicine. You have a fever. Get help right away if: Your pain moves to another part of your abdomen or to your back. You continue to have symptoms or you develop new symptoms even with treatment. These symptoms may be an emergency. Get help right away. Call 911. Do not wait to see if the symptoms will go away. Do not drive yourself to the hospital. Summary Cholecystitis is inflammation of the gallbladder. The most common cause of this condition is gallstones. Gallstones can block the tube (duct) that carries bile out of your gallbladder. Common symptoms include tenderness in the abdomen, nausea, vomiting, fever, and chills. This condition is treated with fasting, pain medicine, surgery to remove the gallbladder, antibiotic medicines, and gallbladder drainage. Follow your health care provider's instructions for eating and drinking. Avoid eating anything thattriggers your symptoms. This information is not intended to replace advice given to you by your health care provider. Make sure you discuss any questions you have with your health care provider. Document Revised: 10/14/2021 Document Reviewed: 10/14/2021 [employer] Patient Education 2023 [employer]. 05/06/2024 09:12:59 Minimally Invasive Cholecystectomy, Care After, Hotz-is-Wteg Minimally Invasive Cholecystectomy, Care After What can I expect after the procedure? After the procedure, it is common to: Have pain at the areas of surgery. You will be given medicines for pain. Vomit or feel like you may vomit. Feel fullness in the belly (bloating) or have pain in the shoulder. This comes from the gas that was used during the surgery. Follow these instructions at home: Medicines Take foiq-uwf-wawbqmy and prescription medicines only as told by your doctor. If you were prescribed an antibiotic medicine, take it as told by your doctor. Do not stop taking it even if you start to feel better. If told, take steps to prevent problems with pooping (constipation). You may need to: ?Drink enough fluid to keep your pee (urine) pale yellow. ?Take medicines. You will be told what medicines to take. ?Eat foods that are high in fiber. These include beans, whole grains, and fresh fruits and vegetables. ?Limit foods that are high in fat and sugar. These include fried or sweet foods. Ask your doctor if you should avoid driving or using machines while you are taking your medicine. Incision care Follow instructions from your doctor about how to take care of your cuts from surgery (incisions). Make sure you: ?Wash your hands with soap and water for at least 20 seconds before and after you change your bandage (dressing). If you cannot use soap and water, use hand chip mucker. ?Change your bandage. ?Leave stitches (sutures) or skin glue in place for at least 2 weeks. ?Leave tape strips alone unless you are told to take them off. You may trim the edges of the tape strips if they curl up. Do not take baths, swim, or use a hot tub. Ask your doctor about taking showers or sponge baths. Check your incision area every day for signs of infection. Check for: ?More redness, swelling, or pain. ?Fluid or blood. ?Warmth. ?Pus or a bad smell. Activity Rest as told by your doctor. Do not do activities that require a lot of effort. Get up to take short walks every 1 to 2 hours. Ask for help if you feel weak or unsteady. Do not lift anything that is heavier than 10 lb (4.5 kg), or the limit that you are told. Do not play contact sports until your doctor says it is okay. Do not return to work or school until your doctor says it is okay. Return to your normal activities when your doctor says that it is safe. General instructions If you were given a sedative during your procedure, do not drive or use machines until your doctor says that it is safe. A sedative is a medicine that helps you relax. Keep all follow-up visits. Contact a doctor if: You get a rash. You have more redness, swelling, or pain around your incisions. You have fluid or blood coming from your incisions. Your incisions feel warm to the touch. You have pus or a bad smell coming from your incisions. You have a fever. One or more of your incisions breaks open. Get help right away if: You have trouble breathing. You have chest pain. You have pain that is getting worse in your shoulders. You faint or feel dizzy when you stand. You have very bad pain in your belly (abdomen). You feel like you may vomit or you vomit, and this lasts for more than one day. You have leg pain. These symptoms may be an emergency. Get help right away. Call 911. Do not wait to see if the symptoms will go away. Do not drive yourself to the hospital. Summary After your surgery, it is common to have pain at the areas of surgery. You may also vomit or feel fullness in the belly. Follow your doctor's instructions about medicine, activity restrictions, and caring for your surgery areas. Do not do activities that require a lot of effort. Contact a doctor if you have a fever or other signs of infection, such as more redness, swelling, or pain around your incisions. Get help right away if you have chest pain, increasing pain in the shoulders, or trouble breathing. This information is not intended to replace advice given to you by your health care provider. Make sure you discuss any questions you have with your health care provider. Document Revised: 10/14/2021 Document Reviewed: 10/14/2021 [employer] Patient Education 2023 [employer] Follow Up Care 05/04/2024 20:52:17 With:trauma clinic Address: [address] [facility] [address] second floor, [address] [place] [address]- [phone] When:05/17/2024 09:45:00 Comments:Call to schedule/confirm followup appointment With:BISHOP TURCIOS Address: [address] [place] [phone] Business (1) When: Unknown Comments:Follow-up with PCP for chronic medical conditions [facility] 01-11-2025 NotePatient Education - Text [place], [place] Marty Benson MD, FACS DISCHARGE INSTRUCTIONS CARING FOR YOUR REID-BOLDEN DRAINAGE TUBE You have been discharged with a Reid-Bolden drainage tube. This tube will help healing and reducethe risk of infection by removing fluid through your incision. It is attached to a drain or collection device where you will see fluid and blood. A bandage at the incision site will protect the open area from infection. You may feel some burning and pulling from the stitch that holds the tube in place. Your drain will be removed when the amount of drainage lessens, usually 5-7 days after surgery.The jerald will be removed in 10-14 days after surgery. HOME CARE ??? Don???t sleep on the same side as the tube. ??? Secure the tube and bag inside your clothing. This will prevent the tube form being pulled out. ??? Empty your drain at least three times a day: in the morning, afternoon and before bed. Empty itmore often as needed. ??? Strip the tubing as much as possible. ??? Lift the opening on the drain. ??? Drain the fluid into a measuring cup. ??? Record the amount of fluid and time that you empty the drain. Share this information with your doctor on your next visit. ??? Squeeze the bulb with your hands until all the air is out of the bulb. ??? Close the opening. ??? Change the dressing around the tube every day. ??? Wash your hands. ??? Remove the old bandage. ??? You may shower and get the drain site wet. ??? Put a new bandage on the incision and tube site. Place one gauze under the drain tube and one over the drain tube and tape it in place. FOLLOW-UP Make a follow-up appointment with your doctor as directed on your discharge paperwork. WHEN TO CALL YOUR DOCTOR ??? call immediately if you have any of the following: ??? Pain, swelling, or fluid around the tube ??? Stitches that become infected ??? Redness or warmth around the incision ??? Tube that falls out ??? Nausea and vomiting ??? Foul smell from incision site ??? Chills or fever above 100 degrees F ??? Fluid draining from your incision. ??? An incision that does not heal ??? Drainage that changes from light pink to dark red KELVIN OUTPUT IN CC'S #1 AM AFTERNOON PM #2 AM AFTERNOON PM Written: 01-02 Gastroenterology Cholecystitis Cholecystitis is inflammation of the gallbladder. Cholecystitis is often called a gallbladder attack. The gallbladder is a pear-shaped organ that lies beneath the liver on the right side of the body.The gallbladder stores a fluid that helps the body digest fats (bile). If bile builds up in your gallbladder, your gallbladder becomes inflamed and can develop a serious infection. This condition may occur suddenly. Cholecystitis is a serious condition and requires treatment. What are the causes? The most common cause of this condition is gallstones. Gallstones can block the tube (duct) that carries bile out of your gallbladder. This causes bile to build up. Other causes include: ??? Damage to the gallbladder due to decreased blood flow. ??? Infection in the bile duct. ??? Scars, kinks, or adhesions in the bile duct. ??? Tumors in the liver, pancreas, or gallbladder. What increases the risk? You are more likely to develop this condition if: ??? You are female and between the ages of 55?62. ??? You take control pills or use estrogen. ??? You take certain medicines that increase your likelihood of developing gallstones. ??? You are obese. ??? You have a severe reaction to an infection (sepsis). The infection may be bacterial, fungal, parasitic, or viral. ??? You have been hospitalized due to trauma, such as a burn or critical illness. ??? You have not eaten or drank for a long period of time (prolonged fasting). What are the si (more content not included)...[facility] 05-05-2024 NoteProgress Note-Physician Basic Information 83 year old male previously healthy presents as a direct admit from [facility] with acute cholecystitis. His symptoms have been present for the past day. His symptoms began just before bed theday prior. No known inciting event. He has never had pain like this before. Pain persisted. He scheduled an appointment with PCP earlier today and ultimately had workup done at [facility]. He is an active man and walks all around town . He has no prior surgical history on the abdomen. he denies any angina symptoms. He denies any respiratory symptoms. No anticoagulation. Assessment/Plan 1. Acute cholecystitis (K81.0: Acute cholecystitis) OR today for lap cholecystectomy No need for cholangiogram based on labs Continue ancef for antibiotic treatment of acute cholecystitis, patient is PCN allergic Continue NPO status until post op Possible discharge later today versus tomorrow Remain on inpatient floor status Ordered: cefazolin + Sodium Chloride 0.9% intravenous solution 50 mL, 2 gram = 1 EA, Powder-Inj, IV Piggyback, q8hr, Routine, Start date 05/05/24 4:00:00 EST, 100 mL/hr, Infuse over 30 minute(s) Orders: bisacodyl, 10 mg = 1 supp, Supp, Rectal, Daily PRN Constipation, Routine, Start date 05/05/24 1:07:00 EST, 05/05/24 1:07:00 EST enoxaparin, 30 mg = 0.3 mL, Injection, SubCutaneous, BID, Routine, Start date 05/05/24 9:00:00 EST,05/05/24 1:07:00 EST HYDROmorphone, 0.5 mg = 0.5 mL, Injection, IV Push, q4hr PRN Pain 8-10 for 2 day(s), Stop date 05/07/24 1:06:00 EST, Routine, Start date 05/05/24 1:07:00 EST, Pain score 8-10, 05/05/24 1:07:00 EST Lactated Ringers Injection 1,000 mL, 1,000 mL, IV, 100 mL/hr, Routine, Start date 05/05/24 1:07:00 EST, 10 hour(s), Total volume (mL): 1,000 ABO/Rh ABO/Rh History Check ABO/Rh Retype Antibody Screen Basic Metabolic Panel Below the Knee Intermittent Pneumatic Compression Device Blood Bank ID# CBC w/ Auto Diff ECG 12 Lead Adult eGFR Extra Green Li Tube Extra Lav Tube Height Hepatic Function Panel Notify Provider Vital Signs NPO Diet Peripheral IV Insertion PT & PTT Pulse Oximetry Resuscitation Status - Full Strict Intake and Output Up ad Porsha Vital Signs Weight XR Chest 2 Views Subjective Patient is doing well this morning. Pain is reasonably controlled. Still having some sharp pain in the right upper abdomen. He has been NPO since arrival for OR today. Patient was sleeping comfortably on my arrival. Review of Systems A 12 point ROS was performed and negative with the exception of the findings documented in the HPI. Objective Vitals & Measurements T: 37.2 ???C(Oral) TMIN: 36.8 ???C(Oral) TMAX: 37.2 ???C(Oral) HR: 95(Monitored) RR: 17 BP: 117/65 SpO2: 93% HT: 175.26 cm WT: 79.6 kg Intake & Output This visit (24 hour periods starting at 07:00 EST) 05/05/24 * 05/04/24 05/03/24 Total Summary Intake mL -- 0.5 -- Output mL -- 400 -- Fluid Balance -- -399.5 -- Intake (1) hydromorphone mL -- 0.5 -- Total -- 0.5 -- Output (1) Urine Voided mL -- 400 -- Total -- 400 -- Counts (0) * This column has not completed the indicated time period. Lab Results WBC: 20.8 E9/L High (05/05/24 03:55:00) RBC: 4.1 E12/L Low (05/05/24 03:55:00) HGB: 9.6 gm/dL Low (05/05/24 03:55:00) Hct: 30.2 % Low (05/05/24 03:55:00) MCV: 72.9 fL Low (05/05/24 03:55:00) MCH: 23.2 pg Low (05/05/24 03:55:00) MCHC: 31.8 gm/dL (05/05/24 03:55:00) RDW: 19.9 % High (05/05/24 03:55:00) Platelet: 127 E9/L Low (05/05/24 03:55:00) MPV: 9.6 fL (05/05/24 03:55:00) Neutro Auto: 82.7 % High (05/05/24 03:55:00) Lymph Auto: 4.4 % Low (05/05/24 03:55:00) [place] Auto: 12.7 % (05/05/24 03:55:00) Eos Auto: 0 % (05/05/24 03:55:00) Basophil Auto: 0.2 % (05/05/24 03:55:00) Neutro Absolute: 17.2 E9/L High (05/05/24 03:55:00) Lymph Absolute: 0.9 E9/L Low (05/05/24 03:55:00) [place] Absolute: 2.6 E9/L High (05/05/24 03:55:00) Eos Absolute: 0 E9/L (05/05/24 03:55:00) Basophil Absolute: 0 E9/L (05/05/24 03:55:00) RBC Morph: SEE MORPHOLOGY (05/05/24 03:55:00) Microcyte: PRESENT (05/05/24 03:55:00) Hypochromasia: PRESENT (05/05/24 03:55:00) Elliptocytes: PRESENT (05/05/24 03:55:00) Acanthocytes: PRESENT (05/05/24 03:55:00) Glucose Lvl: 129 mg/dL (05/05/24 03:55:00) BUN: 19 mg/dL (05/05/24 03:55:00) Creatinine: 0.8 mg/dL (05/05/24 03:55:00) eGFR: 89 mL/min/1.73 m2 (05/05/24 03:55:00) BUN/Creat Ratio: 24 High (05/05/24 03:55:00) Sodium Lvl: 135 mmol/L (05/05/24 03:55:00) Potassium Lvl: 4.2 mmol/L (05/05/24 03:55:00) Chloride: 101 mmol/L (05/05/24 03:55:00) CO2: 27 mmol/L (05/05/24 03:55:00) AGAP: 11 mEq/L (05/05/24 03:55:00) Calcium Lvl: 8.9 mg/dL (05/05/24 03:55:00) Alk Phos: 64 Int._Unit/L (05/05/24 03:55:00) ALT: 9 Int._Unit/L (05/05/24 03:55:00) AST: 13 Int._Unit/L (05/05/24 03:55:00) Total Protein: 6.4 gm/dL (05/05/24 03:55:00) Albumin Lvl: 3.6 (more content not included)...[facility] Comment on above:Result Comment: Electronically Signed By: Bella LEONARD, Enrrique Chino\.br\Date and Time Signed: 05/05/2507:03 [id number] NoteHistory and Physical Basic Information 83 year old male transferred from [facility] with acute cholecystitis Chief Complaint Abdominal pain x24 hours History of Present Illness 83 year old male previously healthy presents as a direct admit from [facility] with acute cholecystitis. His symptoms have been present for the past day. His symptoms began just before bed theday prior. No known inciting event. He has never had pain like this before. Pain persisted. He scheduled an appointment with PCP earlier today and ultimately had workup done at [facility]. He is an active man and walks all around town . He has no prior surgical history on the abdomen. he denies any angina symptoms. He denies any respiratory symptoms. No anticoagulation. Review of Systems Twelve point ROS negative except for documentation in the HPI Scoring Physical Exam Vitals & Measurements T: 36.8 ???C(Oral) HR: 84(Monitored) RR: 17 BP: 118/59 SpO2: 96% NAD, comfortable in bed Lungs clear RRR Abd is soft, mild tenderness to the RUQ No scars Lab Results No qualifying data available. Diagnostic Results WBC count was 18 Tbili was slightly elevated at 1.[address] and US reports received, no imaging received Consistent with acute cholecystitis No significant biliary dilation on US Assessment/Plan 83 year old male with acute cholecystitis Plan for OR in the morning No imaging came with patient, will attempt to locate Pain control overnight NPO now Pre-op work up ordered Discussed with patient and son, will still need consented Discharge to home after surgery if tolerating pain well Patient to be admitted to [facility] under inpatient status Ordered: ABO/Rh Basic Metabolic Panel Below the Knee Intermittent Pneumatic Compression Device CBC w/ Auto Diff ECG 12 Lead Adult Height Hepatic Function Panel Notify Provider Vital Signs NPO Diet Peripheral IV Insertion PT PT & PTT Pulse Oximetry Resuscitation Status - Full Strict Intake and Output Up ad Porsha Vital Signs Weight XR Chest 2 Views Problem List/Past Medical History Ongoing No qualifying data Historical No qualifying data Medications Inpatient No active inpatient medications Home No active home medications Allergies No active allergies Reports allergies to PCN and benadryl Social History Negative for EtOH/tobacco Family History No bleeding or clotting problems Imipenem given at outside hospital due to reported PCN allergy Will give ancef here until surgery is [facility]Mer[facility] HospitalComment on above:Result Comment: Electronically Signed By: Bella LEONARD, Enrrique Hartley.br\Date and Time Signed: 05/05/2500:13 [id number] History of Present illness Narrative* Tesha Lind, CURVE CLEANER - 05/04/2024 3:30 PM EST Images from the original note were not included. Subjective Patient ID: Valencia Brooks is a 83 y.o. male who presents for sick visit. Valencia presents today for stomach pain with no bowel movement for 2 days. He feels like he needs tothrow up. He is also feeling tired and weak and only wants to sleep. The pain in the stomach is always there. He said he has burning and would feel beter to burp. Current Outpatient Medications on File Prior to Visit Medication Sig Dispense Refill aspirin 81 MG EC tablet Take 1 tablet by mouth 1 (one) time each day at the same time. Calcium Carbonate-Vit D-Min (Calcium 600+D3 Plus Minerals) 600-800 MG-UNIT tablet Take 1 tablet by mouth 1 (one) time each day at the same time. cyanocobalamin (Vitamin B-12) 100 MCG tablet Take 1 tablet by mouth 1 (one) time each day at the same time. Docusate Sodium (DSS) 100 MG capsule Take 1 capsule by mouth Daily as needed. ferrous sulfate 325 (65 Fe) MG tablet Take 1 tablet by mouth 1 (one) time each day at the same time. latanoprost (Xalatan) 0.005 % ophthalmic solution Administer 1 drop into both eyes in the morning. levothyroxine (Synthroid, Levoxyl) 137 MCG tablet TAKE 1 TABLET BY MOUTH ONCE DAILY IN THE MORNING BEFORE MEAL(S) 100 tablet 0 melatonin 5 MG tablet Take 1 tablet by mouth 1 (one) time each day at the same time. Multiple Vitamin (MULTIVITAMINS PO) Take 1 tablet by mouth 1 (one) time each day. omega-3 (Fish Oil) 1000 MG capsule Take 1 capsule by mouth every 12 (twelve) hours. omeprazole (PriLOSEC) [address] capsule TAKE 1 CAPSULE BY MOUTH ONCE DAILY AT THE SAME TIME EACH [id number] capsule 0 No current facility-administered medications on file prior to visit. I have reviewed and reconciled the history and medication list with the patient today. Allergies Allergen Reactions Bee Venom Meloxicam Hives Naproxen Hives Penicillin G Hives and Unknown Social History Tobacco Use Smoking status: Never Smokeless tobacco: Never Vaping Use Vaping status: Unknown Substance Use Topics Alcohol use: Not Currently Drug use: Never Family History Problem Relation Name Age of Onset Heart disease Mother Heart disease Father Past Medical History: Diagnosis Date Actinic keratosis Basal cell carcinoma GERD (gastroesophageal reflux disease) Hypothyroidism (CMS/HCC) Past Surgical History: Procedure Laterality Date FOOT SURGERY Bilateral 1994 bone spur removal surgery - Dr. Cifuentes GANGLION CYST EXCISION Right 09/13/2018 wrist Visit Vitals Smoking Status Never Review of Systems Constitutional: Negative. HENT: Negative. Eyes: Negative. Respiratory: Negative. Cardiovascular: Negative. Gastrointestinal: Positive for abdominal pain and constipation. Genitourinary: Negative. Musculoskeletal: Negative. Skin: Negative. Neurological: Negative. Psychiatric/Behavioral: Negative. Objective Physical Exam Vitals reviewed. Constitutional: Appearance: Normal appearance. HENT: Head: Normocephalic. Mouth/Throat: Mouth: Mucous membranes are moist. Pharynx: Oropharynx is clear. Eyes: Conjunctiva/sclera: Conjunctivae normal. Cardiovascular: Rate and Rhythm: Normal rate. Pulmonary: Effort: Pulmonary effort is normal. Abdominal: General: Bowel sounds are normal. There is distension. Palpations: There is mass. Tenderness: There is abdominal tenderness. Skin: General: Skin is warm and dry. Neurological: General: No focal deficit present. Mental Status: He is alert and oriented to person, place, and time. Psychiatric: Mood and Affect: Mood normal. Behavior: Behavior normal. Thought Content: Thought content normal. Judgment: Judgment normal. Assessment/Plan Diagnoses and all orders for this visit: Generalized abdominal pain - XR ABDOMEN 2 VIEW; Future Await xray results. We will call once we get results. Chronic idiopathic constipation - XR ABDOMEN 2 VIEW; Future Start Miralax daily. You need to mix the entire packet in water or juice. You need to drink plenty of fluids to help keep your bowels regularly. If this does not help with your constipation come backso we can evaluate. No follow-ups on file. documented in this encounterMid [facility] Mental Health [id number] History of Present illness Narrative* ANN-MARIE Perez - 03/28/2024 2:00 PM EST Images from the original note were not included. Suture Removal Patient here for suture removal: No complaints of redness, drainage or swelling at site, compliant with wound care. Location: left medial mid back (BCC) Procedure Performed: Excision Date of Procedure: 03/15/2024 Medications: none Follow up Diagnosis: Actinic Keratosis Location: face Last visit: 3 months ago Symptoms: red, scaly, rough Status: improved but not clear Procedure performed: Cryotherapy Date of procedure: 01/03/24 Number of treatments to date: 1 All pertinent medical history, medications, and allergies were reviewed. General Exam: alert, oriented to person, place, and time, normal affect, well appearing A focused exam completed based on patient reported problems, see below: 1. Actinic keratosis (8) Left Ear, Left Rastafarian (2), Left Zygomatic Area, Right Malar Cheek, Right Rastafarian (3) Erythematous scaly papules Patient was counseled regarding these sun-induced growths that can develop into squamous cell carcinoma if left untreated. Discussed treatment with cryotherapy. It was emphasized that any treated lesions that fail to resolve should be re- evaluated. 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 Method: Liquid nitrogen was used to treat the lesion(s) with two 5-10 second freeze-thaw cycles. Number of lesions treated: 8 Post-procedure instructions: Instructions were given orally and in writing. The office will be contacted if the lesion fails to resolve despite treatment, or if a side effect develops such as abnormal crusting, scabbing, redness or tenderness Cryotherapy, skin lesion - Left Ear, Left Rastafarian (2), Left Zygomatic Area, Right Malar Cheek, RightTemple (3) 2. Encounter for removal of sutures Left Medial Mid Back Sutures are intact, Skin edges are well-approximated, Mild erythema along incision line Suture removal today, see procedure note: Suture Removal Procedure: Sutures were removed without difficulty. Tincture of Benzoin was applied around site in preparation of steri-strips. Steri-strips were applied Post-Procedure instructions: Instructed to discontinue wound care., Instructed to keep steri stripson for at least 5-7 days., Pathology results discussed. Next Visit: as scheduled documented in this encounterMid [facility] Mental Health [id number] History of Present illness Narrative* Adan Suarez MD - 03/15/2024 1:00 PM EST Images from the original note were not included. Subjective Valencia Brooks is a 83 y.o. male who presents for the following: Excision and Suture / Staple Removal. Location: left medial mid back Date of biopsy: 01/03/2024 Diagnosis: Nodular basal cell carcinoma Suture Removal Patient here for suture removal: No complaints of redness, drainage or swelling at site, compliant with wound care. Location: right mid back Procedure Performed: Excision Date of Procedure: 03/01/2024 Medications: none Pre-Op Checklist: History of pacemaker/defibrillator: No History of joint replacement in the past 2 years: No History of HIV/Hepatitis B/Hepatitis C: No Latex allergy: No Is the patient currently on a blood thinner? Yes. Aspirin. The patient was recommended to continue taking their blood thinner as usual before, during, and after the procedure. All pertinent medical history, medications, and allergies were reviewed. Surgical assistants: Laura Post CMA and Edison Rios CMA Objective Well appearing patient in no apparent distress; mood and affect are within normal limits. 1. Basal cell carcinoma (BCC) of skin of other part of torso Left Medial Mid Back [place] macule at biopsy site Skin excision Lesion length (cm): 0.7 Lesion width (cm): 0.5 Margin per side (cm): 0.4 Total excision diameter (cm): 1.5 Informed consent: discussed and consent obtained Informed consent comment: Risks and possible complications were discussed as noted on the consent form. The consent form was signed prior to the procedure. Timeout: patient name, date of , surgical site, and procedure verified Timeout comment: Patient and provider identified site. Site was marked and excision was drawn out. Photo was taken and shown to patient, patient verified this is the correct site. Procedure prep: Patient was prepped and draped in usual sterile fashion (The planned incision lineswere drawn along relaxed skin tension lines, if possible, to minimize scarring and deformity of surrounding structures.) Prep type: Chlorhexidine Anesthesia: the lesion was anesthetized in a standard fashion Anesthesia comment: The local anesthetic was injected to create a field block at the site of the procedure. Anesthetic: 1% lidocaine w/ epinephrine 1-100,000 buffered w/ 8.4% NaHCO3 Instrument used: #15 blade Instrument used comment: Incisions were made as drawn, and the surrounding tissue was undermined until the skin edges could be approximated without undue tension. Any tissue redundancies were removed. Hemostasis achieved with: electrodesiccation Additional details: Amount of lidocaine used: 6.0 ml Estimated blood loss: 1.0 ml Skin repair Complexity: Intermediate Final length (cm): 4 Reason for type of repair: allow closure of the large defect Undermining: edges undermined Undermining comment: The surrounding tissue was undermined until the skin edges could be approximated without undue tension. Any tissue redundancies were removed. Subcutaneous layers (deep stitches): Suture size: 3-0 Suture type comment: Biosyn Stitches: Buried horizontal mattress (Closure was performed in a layered fashion with subcutaneous tissue closed first using tension-bearing absorbable sutures to the level of the superficial fascia.) Fine/surface layer approximation (top stitches): Suture size: 4-0 Suture type: Prolene (polypropylene) Stitches: simple running Stitches comment: Epicuticular skin sutures were then placed with minimal tension. Outcome: patient tolerated procedure well with no complications Post-procedure details: sterile dressing applied and wound care instructions given Post-procedure details comment: It was emphasized to the patient to contact the office for any signs of infection, uncontrollable bleeding, or complications. Dressing type: bandage Specimen A - Dermatopathology exam Differential Diagnosis: BCC Check Margins: yes Size of lesion: 0.7 x 0.5 cm Previous accession number: [id number] 2. Encounter for removal of sutures Right Mid Back Sutures are intact, Skin edges are well-approximated, Mild erythema along incision line, Mild erythema along incision line Suture removal today, see procedure note: Suture Removal Procedure: Sutures were removed without difficulty. Tincture of Benzoin was applied around site in preparation of steri-strips. Steri-strips were applied Post-Procedure instructions: Instructed to discontinue wound care., Instructed to keep steri stripson for at least 5-7 days., Pathology results discussed. Follow up: 14 days for s/r documented in this encounterMid [facility] Mental Health [id number] History of Present illness Narrative* Adan Suarez MD - 03/01/2024 3:30 PM EST Images from the original note were not included. Subjective Valencia Brooks is a 83 y.o. male who presents for the following: Excision. Location: Right mid back Date of biopsy: 01/03/2024 Diagnosis: Infiltrative basal cell carcinoma Pre-Op Checklist: History of pacemaker/defibrillator: No History of joint replacement in the past 2 years: No History of HIV/Hepatitis B/Hepatitis C: No Latex allergy: No Is the patient currently on a blood thinner? No. Follow up Diagnosis: Basal Cell Carcinoma Location: Left medial mid back Last visit: 2 months ago Procedure performed: Shave biopsy Date of procedure: 12/2023 Re-evaluation done today. All pertinent medical history, medications, and allergies were reviewed. Surgical assistants: Edison Rios CMA and Fidelina Rockwell CMA Objective Well appearing patient in no apparent distress; mood and affect are within normal limits. 1. Basal cell carcinoma (BCC) of skin of other part of torso Right Mid Back [place] macule at biopsy site Skin excision Lesion length (cm): 1.2 Lesion width (cm): 0.8 Margin per side (cm): 0.4 Total excision diameter (cm): 2 Informed consent: discussed and consent obtained Informed consent comment: Risks and possible complications were discussed as noted on the consent form. The consent form was signed prior to the procedure. Timeout: patient name, date of , surgical site, and procedure verified Timeout comment: Patient and provider identified site. Site was marked and excision was drawn out. Photo was taken and shown to patient, patient verified this is the correct site. Procedure prep: Patient was prepped and draped in usual sterile fashion (The planned incision lineswere drawn along relaxed skin tension lines, if possible, to minimize scarring and deformity of surrounding structures.) Prep type: Chlorhexidine Anesthesia: the lesion was anesthetized in a standard fashion Anesthesia comment: The local anesthetic was injected to create a field block at the site of the procedure. Anesthetic: 1% lidocaine w/ epinephrine 1-100,000 buffered w/ 8.4% NaHCO3 Instrument used: #15 blade Instrument used comment: Incisions were made as drawn, and the surrounding tissue was undermined until the skin edges could be approximated without undue tension. Any tissue redundancies were removed. Hemostasis achieved with: electrodesiccation Additional details: Amount of lidocaine used: 8 ml Estimated blood loss: 0.1 ml Skin repair Complexity: Intermediate Final length (cm): 5.9 Reason for type of repair: allow closure of the large defect Undermining: edges undermined Undermining comment: The surrounding tissue was undermined until the skin edges could be approximated without undue tension. Any tissue redundancies were removed. Subcutaneous layers (deep stitches): Suture size: 3-0 Suture type comment: Biosyn Stitches: Buried horizontal mattress (Closure was performed in a layered fashion with subcutaneous tissue closed first using tension-bearing absorbable sutures to the level of the superficial fascia.) Fine/surface layer approximation (top stitches): Suture size: 4-0 (Surgipro) Stitches: simple running Stitches comment: Epicuticular skin sutures were then placed with minimal tension. Outcome: patient tolerated procedure well with no complications Post-procedure details: sterile dressing applied and wound care instructions given Post-procedure details comment: It was emphasized to the patient to contact the office for any signs of infection, uncontrollable bleeding, or complications. Dressing type: bandage Specimen A - Dermatopathology exam Differential Diagnosis: BCC Check Margins: Yes Size of lesion: 1.2 x 0.8 cm Previous accession number: [id number] Follow up: 14 days for s/r, excision left medial mid back (BCC) documented in this encounterMid [facility] Mental Health [id number] History of Present illness Narrative* Bishop Turcios MD - 01/10/2024 2:00 PM EDT Images from the original note were not included. Subjective : Chief Complaint: Valencia Brooks is an 83 y.o. male here for an annual wellness visit. I have reviewed and reconciled the history and medication list with the patient today. Current Outpatient Medications Medication Sig Dispense Refill aspirin 81 MG EC tablet Take 1 tablet by mouth 1 (one) time each day at the same time. Calcium Carbonate-Vit D-Min (Calcium 600+D3 Plus Minerals) 600-800 MG-UNIT tablet Take 1 tablet by mouth 1 (one) time each day at the same time. cyanocobalamin (Vitamin B-12) 100 MCG tablet Take 1 tablet by mouth 1 (one) time each day at the same time. Docusate Sodium (DSS) 100 MG capsule Take 1 capsule by mouth Daily as needed. ferrous sulfate 325 (65 Fe) MG tablet Take 1 tablet by mouth 1 (one) time each day at the same time. latanoprost (Xalatan) 0.005 % ophthalmic solution Administer 1 drop into both eyes in the morning. levothyroxine (Synthroid, Levoxyl) 137 MCG tablet TAKE 1 TABLET BY MOUTH ONCE DAILY IN THE MORNING BEFORE MEALS 100 tablet 0 melatonin 5 MG tablet Take 1 tablet by mouth 1 (one) time each day at the same time. Multiple Vitamin (MULTIVITAMINS PO) Take 1 tablet by mouth 1 (one) time each day. omega-3 (Fish Oil) 1000 MG capsule Take 1 capsule by mouth every 12 (twelve) hours. omeprazole (PriLOSEC) [address] capsule TAKE 1 CAPSULE BY MOUTH ONCE DAILY AT THE SAME TIME EACH TQA360 capsule 0 No current facility-administered medications for this visit. Review of Systems Constitutional: Negative for appetite change, fatigue and unexpected weight change. Respiratory: Negative for cough, chest tightness and shortness of breath. Cardiovascular: Negative for chest pain, palpitations and leg swelling. Gastrointestinal: Negative for abdominal pain, nausea and vomiting. Genitourinary: Negative for difficulty urinating, hematuria and urgency. List of current healthcare providers: Patient Care Team: Bishop Turcios MD as PCP - General (Internal Medicine) Bishop Turcios MD as PCP - [facility] Medicare Annual Visit Over the past 2 weeks, how often have you been bothered by any of the following problems? Little interest or pleasure in doing things: Not at all Feeling down, depressed, or hopeless: Not at all Patient Health Questionnaire-2 Score: 0 Ramirez Fall Risk History of Falling, Immediate or Within 3 Months: No Secondary Diagnosis: No Health Risk Assessment Form Do you need help eating, bathing, using the toilet, dressing, or getting around your home?: No Can you prepare your own meals?: Yes Can you do your own housework without help?: Yes Can you shop for groceries or clothes without help?: Yes Do you exercise for about 20 minutes 3 or more days a week?: Yes How confident are you that you can control and manage most of your health problems?: Very confident Can you mange your money, credit cards and accounts, pay bills and taxes?: Yes Cognitive Screening Three Word Registration: Apple, Watch, Susan Clock Drawing: Normal Clock - 2 Three Word Recall: All 3 words correct - 3 Total Score (0-5 Points): 5 Pain Assessment Pain Score: 6 Advance Care Planning Do you have a living will?: No Do you have a medical power of real estate attorney?: No Objective : BP 124/66 Pulse 68 Ht 5' 8 Wt 181 lb SpO2 96% BMI 27.52 kg/m No results found. Physical Exam Constitutional: General: He is not in acute distress. Appearance: He is normal weight. He is not ill-appearing. HENT: Head: Normocephalic. Cardiovascular: Rate and Rhythm: Normal rate and regular rhythm. Heart sounds: Normal heart sounds. No murmur heard. Pulmonary: Effort: Pulmonary effort is normal. Breath sounds: Normal breath sounds. Musculoskeletal: General: No swelling. Right lower leg: No edema. Left lower leg: No edema. Neurological: Mental Status: He is alert. Psychiatric: Mood and Affect: Mood normal. Thought Content: Thought content normal. Judgment: Judgment normal. Assessment/Plan : The following health maintenance schedule was reviewed with the patient and provided in printed form in the after visit summary: Health Maintenance Topic Date Due Medicare Annual Wellness (AWV) 01/07/2024 Influenza Vaccine Completed Pneumococcal Vaccine: 65+ Years Completed Advance Care Planning Assessment/Plan Diagnoses and all orders for this visit: Routine general medical examination at health care facility - CBC and differential - Comprehensive metabolic panel; Future ACP (advance care planning) Gastroesophageal reflux disease without esophagitis Chronic insomnia Hypothyroidism (acquired) ([facility]) - TSH W/REFLEX TO FT4; Future Primary osteoarthritis of both knees - Comprehensive metabolic panel; Future Spondylosis of cervical region without myelopathy or radiculopathy - CBC and differential 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 Follow up in about 6 months (around 07/09/2024) for Routine F/U. Electronically signed by Bishop Turcios MD on January 10, 2024 documented in this encounterMid Missouri Mental Health [id number] History of Present illness Narrative* ANN-MARIE Perez - 01/03/2024 1:30 PM EDT Images from the original note were not included. Skin Check Location: Patient requests a skin examination from the waist up Dermatologic history: history of Actinic Keratosis, history of Basal Cell Carcinoma, left lateral back (treated with biopsy) Last visit: 06/29/2023 Established patient All pertinent medical history, medications, and allergies were reviewed. General Exam: alert , oriented to person, place, and time , normal affect, well appearing Unaccompanied A complete skin exam was offered, pt declined. Areas not examined despite medical recommendation: From the waist down Scalp, Examined , exam limited by hair Head, Face Examined Neck Examined Chest Examined Back Examined Abdomen Examined Right arm Examined Left arm Examined Hands Examined Digits,nails: Examined Lymphatics: Not examined 1. Seborrheic keratosis Right Upper Back Stuck on verrucous, variably pigmented papules and plaques. Patient was counseled regarding these benign growths. Removal is normally not necessary, but they may be removed if they are symptomatic or for cosmetic reasons. 2. Lentigines (3) Left Shoulder - Posterior, Neck - Posterior, Right Shoulder - Posterior Scattered martinez macules in sun-exposed areas. The patient was informed that lentigines are benign pigmented lesions that occur on sun-exposed andsun-damaged skin. No treatment is necessary. Recommended regular use of broad spectrum sunscreen SPF 30 or higher 3. History of basal cell carcinoma Left lateral back No evidence of recurrence at BCC scar. The patient was counseled that scars from excisional sites of nonmelanoma skin cancers should be monitored closely for recurrence. The patient was instructed to contact the office for any new, changing, or symptomatic moles. The patient was also instructed to contact the office for any new lesions that develop within or around the previous surgery scar. 4. Actinic keratosis (18) Left [place], Left Malar Cheek, Left Parotid Area, Left Preauricular Area, Left Superior [place], Left Temporal Scalp, Left Zygomatic Area, Mid Occipital Scalp, Neck - Posterior, Right Parotid Area, Right Superior [place], Right Rastafarian, Right Temporal Scalp (2), Right Upper Back, Right Zygomatic Area (3) Erythematous scaly papules Patient was counseled regarding these sun-induced growths that can develop into squamous cell carcinoma if left untreated. Discussed treatment with cryotherapy. It was emphasized that any treated lesions that fail to resolve should be re- evaluated. 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 Method: Liquid nitrogen was used to treat the lesion(s) with two 5-10 second freeze-thaw cycles. Number of lesions treated: 18 Post-procedure instructions: Instructions were given verbally. The office will be contacted if the lesion fails to resolve despite treatment, or if a side effect develops such as abnormal crusting, scabbing, redness or tenderness Cryotherapy, skin lesion - Left [place], Left Malar Cheek, Left Parotid Area, Left Preauricular Area, Left Superior [place], Left Temporal Scalp, Left Zygomatic Area, Mid Occipital Scalp, Neck - Posterior, Right Parotid Area, Right Superior [place], Right Rastafarian, Right Temporal Scalp (2), Right Upper Back, Right Zygomatic Area (3) 5. Neoplasm of unspecified behavior of bone, soft tissue, and skin (2) Right mid back Erythematous papule Lesion biopsy Type of biopsy: tangential Informed consent: discussed and consent obtained Informed consent comment: The risks and benefits of the biopsy were discussed. Risks include but are not limited to bleeding, infection, scarring, pain, and nerve damage. An opportunity to ask questions prior to the procedure was permitted and all questions were answered. Patient was prepped and draped in usual sterile fashion: area cleansed with alcohol. Anesthesia: the lesion was anesthetized in a standard fashion Anesthetic: 1% lidocaine w/ epinephrine 1-100,000 buffered w/ 8.4% NaHCO3 Instrument used: DermaBlade Hemostasis achieved with: electrodesiccation Outcome: patient tolerated procedure well Outcome comment: The specimen was placed in a prelabeled formalin container to be sent for pathology Post-procedure details: sterile dressing applied and wound care instructions given Post-procedure details comment: Emphasized need to contact clinic for any signs of infection, uncontrollable bleeding, or complications. Dressing type: bandage Additional details: Photo taken yes Amount of lidocaine used: 1.0 cc Specimen A - Dermatopathology exam Differential Diagnosis: BCC Check Margins: yes Size of lesion: 1.2 x 0.8 cm Left medial mid back Pigmented papule with telangiectasia Lesion biopsy Type of biopsy: tangential Informed consent: discussed and consent obtained Informed consent comment: The risks and benefits of the biopsy were discussed. Risks include but are not limited to bleeding, infection, scarring, pain, and nerve damage. An opportunity to ask questions prior to the procedure was permitted and all questions were answered. Patient was prepped and draped in usual sterile fashion: area cleansed with alcohol. Anesthesia: the lesion was anesthetized in a standard fashion Anesthetic: 1% lidocaine w/ epinephrine 1-100,000 buffered w/ 8.4% NaHCO3 Instrument used: DermaBlade Hemostasis achieved with: electrodesiccation Outcome: patient tolerated procedure well Outcome comment: The specimen was placed in a prelabeled formalin container to be sent for pathology Post-procedure details: sterile dressing applied and wound care instructions given Post-procedure details comment: Emphasized need to contact clinic for any signs of infection, uncontrollable bleeding, or complications. Dressing type: bandage Additional details: Photo taken yes Amount of lidocaine used: 1.0 cc Specimen B - Dermatopathology exam Differential Diagnosis: Pigmented BCC Check Margins: yes Size of lesion: 0.7 x 0.5 cm Next Visit: as scheduled June 2024 [facility]* Diagnosis Basal cell carcinoma (BCC) of skin of other part of torso- Primary documented in this encounter [facility] HealthcareEvaluation note* Diagnosis Basal cell carcinoma (BCC) of skin of other part of torso- Primary Encounter for removal of sutures documented in this encounter [facility] HealthcareEvaluation note* Diagnosis Actinic keratosis- Primary Encounter for removal of sutures documented in this encounter [facility] HealthcareEvaluation note* Diagnosis Routine general medical examination at health care facility- Primary Routine general medical examination at a health care facility ACP (advance care planning) Other specified counseling Gastroesophageal reflux disease without esophagitis Esophageal reflux Chronic insomnia Insomnia, unspecified Hypothyroidism (acquired) ([facility]) Unspecified hypothyroidism Primary osteoarthritis of both knees 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[facility]) Lipoprotein deficiencies documented in this encounter [facility] HealthcareEvaluation note* Diagnosis Seborrheic keratosis- Primary Lentigines History of basal cell carcinoma Personal history of other malignant neoplasm of skin Actinic keratosis Neoplasm of unspecified behavior of bone, soft tissue, and skin documented in this encounter [facility] HealthcareEvaluation note* Diagnosis Generalized abdominal pain- Primary Abdominal pain, generalized Chronic idiopathic constipation Unspecified constipation documented in this encounter [facility] HealthcareEvaluation note* Diagnosis Decreased appetite- Primary Anorexia S/P cholecystectomy Other acquired absence of organ Microcytic anemia Unspecified iron deficiency anemia Thrombocytopenia ([facility]) Unspecified thrombocytopenia documented in this encounter [facility] HealthcareHospital course Narrative No data available for this section [facility] Discharge instructions No data available for this section [facility] Progress note No data available for this section [facility] Summary Purpose Family History No Family History Records Found No data available for this section No Family History Records FoundNo Family History Records FoundNo Family History Records FoundNo Family History Records FoundNo Family History Records FoundNo Family History Records FoundNo Family History Records FoundNo Family History Records FoundNo Family History Records FoundNo Family History Records FoundNo Family History Records FoundNo Family History Records FoundNo Family History Records FoundNo Family History Records FoundNo Family History Records FoundNo Family History Records FoundNo Family History Records FoundNo Family History Records FoundNo Family History Records FoundNo Family History Records FoundNo Family History Records FoundNo Family History Records FoundNo Family History Records FoundNo Family History Records FoundNo Family History Records FoundNo Family History Records FoundNo Family History Records FoundNo Family History Records FoundNo Family History Records Found No data available for this section No Family History Records FoundNo Family History Records Found Advance Directives No Advanced Directives Records FoundNo Advanced Directives Records FoundNo Advanced Directives Records FoundNo Advanced Directives Records FoundNo Advanced Directives Records FoundNo Advanced Directives Records FoundNo Advanced Directives Records FoundNo Advanced Directives Records FoundNo Advanced Directives Records FoundNo Advanced Directives Records FoundNo Advanced Directives Records FoundNo Advanced Directives Records FoundNo Advanced Directives Records FoundNo Advanced Directives Records FoundNo Advanced Directives Records FoundNo Advanced Directives Records FoundNo Advanced Directives Records FoundNo Advanced Directives Records FoundNo Advanced Directives Records FoundNo Advanced Directives Records FoundNo Advanced Directives Records FoundNo Advanced Directives Records FoundNo Advanced Directives Records FoundNo Advanced Directives Records FoundNo Advanced Directives Records FoundNo Advanced Directives Records FoundNo Advanced Directives Records FoundNo Advanced Directives Records FoundNo Advanced Directives Records FoundNo Advanced Directives Records FoundNo Advanced Directiv es Records FoundNo Advanced Directives Records Found Additional Source Comments (unrecognized sect ion and content) No Status Records FoundNo Status Records FoundNo Status Records FoundNo Status Records FoundNo Status Records FoundNo Status Records FoundNo Status Records FoundNo Status Records FoundNo Status Records FoundNo Status Records FoundNo Status Records FoundNo Status Records FoundNo Status Records FoundNo Status Records FoundNo Status Records FoundNo Status Records FoundNo Status Records FoundNo Status Records FoundNo Status Records FoundNo Status Records FoundNo Status Records FoundNo Status Records FoundNo Status Records FoundNo Status Records FoundNo Status Records FoundNo Status Records FoundNo Status Records FoundNo Status Records FoundNo Status Records FoundNo Status Records FoundNo Status Records FoundNo Status Records Found INFORMATION SOURCE (unrecogn ized section and content) DATE CREATED AUTHOR 05/15/2019 [facility] DATE CREATED AUTHOR AUTHOR'S ORGANIZ ATION 05/10/2024 Shiva Box [facility] DATE CREATED AUTHOR AUTHOR'S ORGANIZ ATION 05/15/2024 Shannon Bell [facility] DATE CREATED AUTHOR AUTHOR'S ORGANIZ ATION 05/19/2024 Shannon Isauro [facility] DATE CREATED AUTHOR AUTHOR'S ORGANIZ ATION 05/20/2024 [facility] Care Teams (unrecognized sec tion and content) 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 Relationship Specialty Start Date End Date Bishop Turcios MD [address] [place] [address] PCP - [place] 04/26/21 Bishop Turcios MD [address] [place] [address] PCP - General Internal Medicine 09/01/22 Motorcycle Racer Relationship Specialty Start Date End Date Bishop Turcios MD [address] [place] [address] PCP - Mk MA 04/26/21 Bishop Turcios MD [address] [place] [address] PCP - General Internal Medicine 09/01/22 Motorcycle Racer Relationship Specialty Start Date End Date Bishop Turcios MD [address] [place] [address] PCP - [place] 04/26/21 Bishop Turcios MD [address] [place] [address] PCP - General Internal Medicine 09/01/22 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 Relationship Specialty Start Date End Date Bishop Turcios MD [address] [place] [address] PCP - [place] 04/26/21 Bishop Turcios MD [address] [place] [address] PCP - General Internal Medicine 09/01/22 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 Racer Relationship Specialty Start Date End Date Bishop Turcios MD [address] [place] [address] PCP - Mk MA 04/26/21 Bishop Turcios MD [address] [place] [address] PCP - General Internal Medicine 09/01/22 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 Relationship Specialty Start Date End Date Bishop Turcios MD [address] [place] [address] PCP - Mk MA 04/26/21 Bishop Turcios MD [address] [place] [address] PCP - General Internal Medicine 09/01/22 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 Racer Relationship Specialty Start Date End Date Bishop Turcios MD [address] [place] [address] PCP - Mk MA 04/26/21 Bishop Turcios MD [address] [place] [address] PCP - General Internal Medicine 09/01/22 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 Relationship Specialty Start Date End Date Bishop Turcios MD [address] [place] [address] PCP - Mk MA 04/26/21 Bishop Turcios MD [address] [place] [address] PCP - General Internal Medicine 09/01/22 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 Racer Relationship Specialty Start Date End Date Bishop Turcios MD [address] [facility] [address] [place] [address] PCP - Mk CAMILO 04/26/21 Bishop Turcios MD [address] [facility] [address] [place] [address] PCP - General Internal Medicine 09/01/22 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 Racer Relationship Specialty Start Date End Date Bishop Turcios MD [address] [facility] [address] [place] [address] PCP - Mk CAMILO 04/26/21 Bishop Turcios MD [address] [facility] [address] [place] [address] PCP - General Internal Medicine 09/01/22 Reason for Visit (unrecogniz ed section and content) Reason Comments Excision Reason Comments Excision Suture / Staple Removal Reason Comments Suture / Staple Removal Reason Comments Medicare Annual Wellness Visit Subsequen t Reason Comments Skin Check FOR RECORDS PERTAINING TO PATIENTS WHO ARE OR HAVE BEEN ENROLLED IN A CHEMICAL DEPENDENCY/SUBSTANCEABUSE PROGRAM, SOME INFORMATION MAY BE OMITTED. This clinical summary was aggregated from multiple sources. Caution should be exercised in using it in the provision of clinical care. This summary normalizes information from multiple sources, and as a consequence, information in this document may materially change the coding, format and clinical context of patient data. In addition, data may be omitted in some cases. CLINICAL DECISIONS SHOULD BE BASED ON THE PRIMARY CLINICAL RECORDS. [employer] provides no warranty or guarantee of the accuracy or completeness of information in this document.
[2024-05-21] MEDS: MORPHINE SULFATE 4 MG/ML VIAL IV (08:35)
[2024-05-21] MEDS: IMIPENEM/CILASTATIN SODIUM 1,000 MG in 0.9 % SODIUM CHLORIDE 100 ML 100 MG IV (08:51)
[2024-05-21 09:15] LABS: Lactate/Lactic Acid 1.4 mmol/L (0.4-2.0)
[2024-05-21 20:01] LABS: A. calcoaceticus-baumannii Cpx NOT DETECTED (NOT DETECTE); Bacteroides fragilis NOT DETECTED (NOT DETECTE); Candida albicans NOT DETECTED (NOT DETECTE); Candida auris NOT DETECTED (NOT DETECTE); Candida glabrata NOT DETECTED (NOT DETECTE); Candida krusei NOT DETECTED (NOT DETECTE); Candida parapsilosis NOT DETECTED (NOT DETECTE); Candida tropicalis NOT DETECTED (NOT DETECTE); Cryptococcus neoformans/gattii NOT DETECTED (NOT DETECTE); Enterobacter cloacae complex NOT DETECTED (NOT DETECTE); Enterobacterales NOT DETECTED (NOT DETECTE); Enterococcus faecalis NOT DETECTED (NOT DETECTE); Enterococcus faecium NOT DETECTED (NOT DETECTE); Haemophilus influenzae NOT DETECTED (NOT DETECTE); Klebsiella aerogenes NOT DETECTED (NOT DETECTE); Klebsiella pneumoniae group NOT DETECTED (NOT DETECTE); Listeria monocytogenes NOT DETECTED (NOT DETECTE); Neisseria meningitidis NOT DETECTED (NOT DETECTE); Proteus spp. NOT DETECTED (NOT DETECTE); Pseudomonas aeruginosa NOT DETECTED (NOT DETECTE); Salmonella spp. NOT DETECTED (NOT DETECTE); Serratia marcescens NOT DETECTED (NOT DETECTE); Staphylococcus epidermidis NOT DETECTED (NOT DETECTE); Staphylococcus lugdunensis NOT DETECTED (NOT DETECTE); Staphylococcus spp. NOT DETECTED (NOT DETECTE); Stenotrophomonas maltophilia NOT DETECTED (NOT DETECTE); Streptococcus agalactiae NOT DETECTED (NOT DETECTE); Streptococcus pneumoniae NOT DETECTED (NOT DETECTE); Streptococcus pyogenes NOT DETECTED (NOT DETECTE); Streptococcus spp. NOT DETECTED (NOT DETECTE)
[2024-05-21 21:36] LABS: Source BLOOD
== END 2024-05-21 13:17 | disposition short-term general hospital (02) ==
PROVIDERS: Emergency Medicine; Emergency Provider Emergency Medicine; Family Provider Physician Assistant; PCP Internal Medicine
DX: T81.49XA Infection following a procedure, other surgical site, initial encounter (principal); G89.18 Other acute postprocedural pain; R10.9 Unspecified abdominal pain; R55 Syncope and collapse; Z90.49 Acquired absence of other specified parts of digestive tract
CPT/HCPCS: 36415; 70450; 72125; 74177; 80053; 83605; 83690; 84484; 85007; 85027; 87040; 87150; 93005; 96365; 96375; 99285; J0743; J2270; J2405; Q9967

== ENCOUNTER 2024-05-26 13:25 | Emergency (ER) | payer MEDICARE, SELFPAY ==
[2024-05-26 13:35] VITALS: BP 134/67; PULSE 73; TEMP 36.7; O2SAT 99; BMI 25.5
--- NOTE | 2024-05-26 13:58 | CT_ITS ---
[address] [address] Patient Name: VALENCIA MAGANA MRN: [id number] date: 1940 Sex: M Assigned Patient Location: ER Current Patient Location: Accession/Order Number: [id number] Exam Date: 05/26/2024 14:58 Report Date: 05/26/2024 15:28 At the request of: GLO JIMENEZ Procedure: CT abdomen pelvis w con EXAMINATION: CT abdomen pelvis w con HISTORY: h/o of abscess COMPARISON: 05/21/2024 TECHNIQUE: CT images were created with IV contrast. Axial, Coronal, and Sagittal images. Dose reduction techniques were achieved by using automated exposure control and/or adjustment of mA and/or kV according to patient size and/or use of iterative reconstruction technique. FINDINGS: LUNG BASES: Scattered punctate pulmonary nodules measuring up to 4 mm. 1.5 cm right pleural effusion. Mild coronary atherosclerosis LIVER: No enlargement, atrophy, abnormal density, or significant focal lesion. BILIARY: 7.7 x 4.7 cm circumscribed fluid collection with air identified in the gallbladder fossa with a percutaneous pigtail catheter normally positioned within the phlegmon. PANCREAS: No lesion, fluid collection, ductal dilatation, or atrophy. SPLEEN: No enlargement or focal lesion. ADRENALS: No mass or enlargement. KIDNEYS: 3.9 cm right renal simple cyst. Punctate right nonobstructing nephrolith BOWEL/MESENTERY: Moderate colonic diverticulosis without evidence of acute diverticulitis. Nonobstructive bowel gas pattern. Normal appendix AORTA/VASCULAR: No aortic aneurysm or dissection. Moderate calcific atherosclerosis RETROPERITONEUM: No mass or adenopathy. LYMPH NODES: No adenopathy. URINARY BLADDER: No visible focal wall thickening, lesion, or calculus. PELVIC ORGANS: No visible mass. Pelvic organs appropriate for patient age. ABDOMINAL WALL: No mass or hernia. BONES: No bony lesion or fracture. OTHER: Negative. CT/CT abdomen pelvis w con IMPRESSION: 7.7 cm phlegmon/abscess in the gallbladder fossa with normally positioned percutaneous drainage catheter Electronically authenticated by: VONNIE MOORE Date: 05/26/2024 15:28
[2024-05-26 14:21] LABS: Basophils Absolute Auto 0.1 10^3/uL (0.0-0.1); Eosinophils Absolute Auto 0.1 10^3/uL (0.0-0.7); Eosinophils Percent Auto 1.8 % (0.9-7.0); Hematocrit 30.3 % (42.0-54.0); Hemoglobin 8.7 g/dL (14.0-18.0); Immature Granulocytes Abs Auto 0.04 10^3/uL (0.00-0.03); Immature Granulocytes Pct Auto 0.7 % (0.0-0.5); Lymphocytes Absolute Auto 1.7 10^3/uL (1.2-3.8); Mean Corpuscular HGB Conc 28.7 g/dL (29.9-35.2); Mean Corpuscular Hemoglobin 22.7 pg (25.9-34.0); Mean Corpuscular Volume 78.9 fL (80.0-94.0); Monocytes Absolute Auto 0.6 10^3/uL (0.3-0.8); Monocytes Percent Auto 10.2 % (1.7-12.0); Neutrophils Absolute Auto 3.5 10^3/uL (1.4-6.5); Neutrophils Percent Auto 58.3 % (43.0-75.0); Platelet Count 394 10^3/uL (150-450); Red Blood Count 3.84 10^6/uL (4.70-6.10); Red Cell Distribution Width 18.8 % (11.0-15.0)
[2024-05-26 14:40] LABS: Alanine Aminotransferase 59 U/L (16-63); Albumin Globulin Ratio 0.7; Albumin Level 2.9 g/dL (3.4-5.0); Alkaline Phosphatase 278 U/L (46-116); Anion Gap 8.7; Aspartate Amino Transferase 29 U/L (15-37); BUN Creatinine Ratio 9.2; Bilirubin Total 0.3 mg/dL (0.2-1.0); Calcium 8.4 mg/dL (8.5-10.1); Carbon Dioxide 30.5 mmol/L (21.0-32.0); Chloride 101 mmol/L (98-107); Estimated GFR (African America >60 (>=60 mL/min/1.73m^2); Estimated GFR (Non-African Ame >60 (>=60 mL/min/1.73m^2); Globulin 4.3 g/dL; Glucose 100 mg/dL (74-106); Potassium 4.2 mmol/L (3.5-5.1); Sodium 136 mmol/L (136-145); Total Protein 7.2 g/dL (6.4-8.2)
[2024-05-26 14:45] LABS: Lactate/Lactic Acid 1.5 mmol/L (0.4-2.0)
--- NOTE | 2024-05-26 14:56 | ED.GENADUL1 ---
Documented by User: Sophy Rodriguez 05/26/24 16:33 HPI HPI - General Adult General Chief complaint: Recheck/Abnormal Lab/Rx Stated complaint: POST SURGICAL PROBLEM Time Seen by Provider: 05/26/24 13:29 Source: patient Mode of arrival: walk-in Limitations: no limitations History of Present Illness HPI narrative: 83-year-old male returns here to the emergency room today. Patient had a laparoscopic cholecystectomy performed at [facility] on May 05. He then returned here to our emergency room with complications and intra-abdominal abscess in the gallbladder that was discovered on May 21. At that time he was transferred to [facility] family states that he was at [facility] had a drain placed and was there for 3 days. He returns here to the emergency room today due to an incisional area with purulent drainage. Continues to have a drain that is draining 20 to 30 cc/day from his . Patient no longer has any abdominal pain states he feels much better he has continued to use his antibiotics. He is scheduled to follow-up with general surgeryErinn at [facility] in 4 days. He was concerned because he noticed purulent drainage from an incisional site right upper quadrant. There is no tenderness to palpation in this area. Related Data Home Medications ?Medication ?Instructions ?Recorded ?Confirmed latanoprost 0.005 % eye drops 1 drp ophthalmic (eye) DAILY 05/21/24 05/21/24 levothyroxine 137 mcg tablet 137 mcg PO DAILY 05/21/24 05/21/24 omeprazole 40 mg capsule,delayed 40 mg PO DAILY 05/21/24 05/21/24 release amoxicillin 875 mg-potassium tab 05/26/24 clavulanate 125 mg tablet Allergies Allergy/AdvReac Type Severity Reaction Status Date / Time naproxen Allergy Mild swelling Verified 05/26/24 13:32 Penicillins Allergy Mild Rash Verified 05/26/24 13:32 Opioid HPI Opioid Management Most Recent Opioid Data: Last Pain Scale 8 05/21/24 08:35 05/21/24 Last ED Pain Assessment 05/21/24 06:11 Review of Systems ROS Narrative All Systems are negative except as noted/marked.All systems reviewed and otherwise negative PFSH PFSH Social History Little interest or pleasure in doing things: not at all Feeling down, depressed, or hopeless: not at all Exam Narrative Exam Narrative: Nurses note and vital signs reviewed and patient is not hypoxic. General: The patient appears well and in no apparent distress. Patient is resting comfortably on cart. Skin: Warm, dry, no pallor noted. There is no rash noted. Head: Normocephalic, atraumatic Eye: Normal conjunctiva, no drainage, EOMI. PERRL Ears, Nose, Mouth, and Throat: oral mucosa is moist. Nares patent. Mouth without vesicles. Ear canals patent. Tm's without Erythema Cardiovascular: Regular Rate and Rhythm Respiratory: Patient is in no distress, no accessory muscle use, lungs are clear to auscultation, no wheezing, rales or rhonchi Back: non-tender, no CVA tenderness bilaterally to percussion. GI: drain tube superior upper central quadrant functioning, small area of drainage to right upper quadrant incision site, nontender to palpation. Normal bowel sounds, no tenderness to palpation, no masses appreciated. No rebound, guarding, or rigidity noted. Musculoskeletal: The patient has no evidence of calf tenderness, no pitting edema, symmetrical pulses noted bilaterally Neurological: A&O x4, normal speech Psychiatric: Cooperative Constitutional Vital Signs, click to edit/add: Last Vital Signs Temp 98.1 F 05/26/24 13:35 Pulse 73 05/26/24 13:35 Resp 18 05/26/24 13:35 BP 134/67 05/26/24 13:35 Pulse Ox 99 05/26/24 13:35 O2 Del Method Room Air 05/26/24 13:35 Course Vital Signs Vital signs: Vital Signs Temperature 98.1 F 05/26/24 13:35 Pulse Rate 73 05/26/24 13:35 Respiratory Rate 18 05/26/24 13:35 Blood Pressure 134/67 05/26/24 13:35 Pulse Oximetry 99 05/26/24 13:35 Oxygen Delivery Method Room Air 05/26/24 13:35 Temperature 98.1 F 05/26/24 13:35 Pulse Rate 73 05/26/24 13:35 Respiratory Rate 18 05/26/24 13:35 Blood Pressure 134/67 05/26/24 13:35 Pulse Oximetry 99 05/26/24 13:35 Oxygen Delivery Method Room Air 05/26/24 13:35 Medical Decision Making MDM Narrative Medical decision making narrative: 83-year-old male returns here to the emergency room today. Patient had a laparoscopic cholecystectomy performed at [facility] on May 05. He then returned here to our emergency room with complications and intra-abdominal abscess in the gallbladder that was discovered on May 21. At that time he was transferred to [facility] family states that he was at [facility] had a drain placed and was there for 3 days. He returns here to the emergency room today due to an incisional area with purulent drainage. Continues to have a drain that is draining 20 to 30 cc/day from his . Patient no longer has any abdominal pain states he feels much better he has continued to use his antibiotics. [facility] in 4 days. He was concerned because he noticed purulent drainage from an incisional site right upper quadrant. There is no tenderness to palpation in this area. Patient return here to the emergency room with what appears to be a suture rejection to the right upper quadrant of his abdomen. He is nontender to palpation small area wound dehiscence is noted and purulent drainage is able to be expressed. CT scan was performed here today to make sure there was no adjunct abscess draining from this area other than with the tube. Patient does have a 7.7 cm phlegmon abscess in the gallbladder fossa that is normal in position in the percutaneous drainage catheter. is continuously cleaning the drain and flushing it directed by the surgeons at [facility]. I did reach out to speak to general surgery at [facility] Dr. Ayala CT results as the patient is following up with them on Wednesday. Patient is able to be discharged to home and follow-up as indicated. Family members and patient were advised to return to [facility] if they have any further complications as this is where the surgeons are located. They do agree with plan of care. The drain has been flushed here in the emergency room and he continues to work accordingly. Patient and family members agree with plan of care and will follow-up accordingly. Differential Diagnosis Differential Diagnosis: abscess, cellulitis Medical Records Medical records reviewed: Yes I reviewed the patient's medical records Lab Data Lab results reviewed: Yes I reviewed the patient's lab results Labs: Lab Results 05/26/24 Range/Units 14:13 WBC 6.0 (4.0-11.0) 10^3/uL RBC 3.84 L (4.70-6.10) 10^6/uL Hgb 8.7 L (14.0-18.0) g/dL Hct 30.3 L (42.0-54.0) % MCV 78.9 L (80.0-94.0) fL MCH 22.7 L (25.9-34.0) pg MCHC 28.7 L (29.9-35.2) g/dL RDW 18.8 H (11.0-15.0) % Plt Count 394 (150-450) 10^3/uL MPV 9.0 L (9.5-13.5) fL Neut % (Auto) 58.3 (43.0-75.0) % Lymph % (Auto) 28.0 (20.5-60.0) % [place] % (Auto) 10.2 (1.7-12.0) % Eos % (Auto) 1.8 (0.9-7.0) % Baso % (Auto) 1.0 (0.2-2.0) % Neut # (Auto) 3.5 (1.4-6.5) 10^3/uL Lymph # (Auto) 1.7 (1.2-3.8) 10^3/uL [place] # (Auto) 0.6 (0.3-0.8) 10^3/uL Eos # (Auto) 0.1 (0.0-0.7) 10^3/uL Baso # (Auto) 0.1 (0.0-0.1) 10^3/uL Abs Immat Gran (auto) 0.04 H (0.00-0.03) 10^3/uL Imm/Tot Granulo (auto) 0.7 H (0.0-0.5) % Sodium 136 (136-145) mmol/L Potassium 4.2 (3.5-5.1) mmol/L Chloride 101 (98-107) mmol/L Carbon Dioxide 30.5 (21.0-32.0) mmol/L Anion Gap 8.7 BUN 9.0 (7.0-18.0) mg/dL Creatinine 0.98 (0.70-1.30) mg/dL Est GFR ( Amer) >60 (>=60 mL/min/1.73m^2) Est GFR (Non-Af Amer) >60 (>=60 mL/min/1.73m^2) BUN/Creatinine Ratio 9.2 Glucose 100 (74-106) mg/dL Lactate 1.5 (0.4-2.0) mmol/L Calcium 8.4 L (8.5-10.1) mg/dL Total Bilirubin 0.3 (0.2-1.0) mg/dL AST 29 (15-37) U/L ALT 59 (16-63) U/L Alkaline Phosphatase 278 H (46-116) U/L Total Protein 7.2 (6.4-8.2) g/dL Albumin 2.9 L (3.4-5.0) g/dL Globulin 4.3 g/dL Albumin/Globulin Ratio 0.7 Discharge Plan Discharge Chief Complaint: Recheck/Abnormal Lab/Rx Clinical Impression: Postoperative abscess Patient Disposition: Home, Self-Care Time of Disposition Decision: 16:24 Condition: Good Prescriptions / Home Meds: No Action amoxicillin-pot clavulanate 875-125 mg tablet latanoprost 0.005 % drops 1 drp OPHTHALMIC (EYE) DAILY Rx Instructions: HS levothyroxine 137 mcg tablet 137 mcg PO DAILY omeprazole 40 mg capsule,delayed release(DR/EC) 40 mg PO DAILY Print Language: Slovenian Instructions: Surgical Site Infections (ED) Additional Instructions: follow up with [facility] general surgery at [facility] in [place] Referrals: MOISES THOMAS [Primary Care Provider] - 1 week Discharge Date/Time: 05/26/24 16:49 Documented by User: Alcon Zamora MD 05/26/24 20:04 HPI HPI - General Adult General Chief complaint: Recheck/Abnormal Lab/Rx Stated complaint: POST SURGICAL PROBLEM Time Seen by Provider: 05/26/24 13:29 Related Data Home Medications ?Medication ?Instructions ?Recorded ?Confirmed latanoprost 0.005 % eye drops 1 drp ophthalmic (eye) DAILY 05/21/24 05/21/24 levothyroxine 137 mcg tablet 137 mcg PO DAILY 05/21/24 05/21/24 omeprazole 40 mg capsule,delayed 40 mg PO DAILY 05/21/24 05/21/24 release amoxicillin 875 mg-potassium tab 05/26/24 clavulanate 125 mg tablet Allergies Allergy/AdvReac Type Severity Reaction Status Date / Time naproxen Allergy Mild swelling Verified 05/26/24 13:32 Penicillins Allergy Mild Rash Verified 05/26/24 13:32 Opioid HPI Opioid Management Most Recent Opioid Data: Last Pain Scale 8 05/21/24 08:35 05/21/24 Last ED Pain Assessment 05/21/24 06:11 PFSH PFSH Social History Little interest or pleasure in doing things: not at all Feeling down, depressed, or hopeless: not at all Exam Constitutional Vital Signs, click to edit/add: Last Vital Signs Temp 98.1 F 05/26/24 13:35 Pulse 73 05/26/24 13:35 Resp 18 05/26/24 13:35 BP 134/67 05/26/24 13:35 Pulse Ox 99 05/26/24 13:35 O2 Del Method Room Air 05/26/24 13:35 Course Vital Signs Vital signs: Vital Signs Temperature 98.1 F 05/26/24 13:35 Pulse Rate 73 05/26/24 13:35 Respiratory Rate 18 05/26/24 13:35 Blood Pressure 134/67 05/26/24 13:35 Pulse Oximetry 99 05/26/24 13:35 Oxygen Delivery Method Room Air 05/26/24 13:35 Temperature 98.1 F 05/26/24 13:35 Pulse Rate 73 05/26/24 13:35 Respiratory Rate 18 05/26/24 13:35 Blood Pressure 134/67 05/26/24 13:35 Pulse Oximetry 99 05/26/24 13:35 Oxygen Delivery Method Room Air 05/26/24 13:35 Medical Decision Making MDM Narrative Medical decision making narrative: 83-year-old male returns here to the emergency room today. Patient had a laparoscopic cholecystectomy performed at [facility] on May 05. He then returned here to our emergency room with complications and intra-abdominal abscess in the gallbladder that was discovered on May 21. At that time he was transferred to [facility] family states that he was at [facility] had a drain placed and was there for 3 days. He returns here to the emergency room today due to an incisional area with purulent drainage. Continues to have a drain that is draining 20 to 30 cc/day from his . Patient no longer has any abdominal pain states he feels much better he has continued to use his antibiotics. He is scheduled to follow-up with general surgery, Erinn at [facility] in 4 days. He was concerned because he noticed purulent drainage from an incisional site right upper quadrant. There is no tenderness to palpation in this area. Patient return here to the emergency room with what appears to be a suture rejection to the right upper quadrant of his abdomen. He is nontender to palpation small area wound dehiscence is noted and purulent drainage is able to be expressed. CT scan was performed here today to make sure there was no adjunct abscess draining from this area other than with the tube. Patient does have a 7.7 cm phlegmon abscess in the gallbladder fossa that is normal in position in the percutaneous drainage catheter. is continuously cleaning the drain and flushing it directed by the surgeons at [facility]. I did reach out to speak to general surgery at [facility] Dr. Ayala CT results as the patient is following up with them on Wednesday. Patient is able to be discharged to home and follow-up as indicated. Family members and patient were advised to return to [facility] if they have any further complications as this is where the surgeons are located. They do agree with plan of care. The drain has been flushed here in the emergency room and he continues to work accordingly. Patient and family members agree with plan of care and will follow-up accordingly. I, Dr Zamora, have reviewed the above progress note and course of action in the ER; agree with the above. I have personally seen this patient, gone over history and physical, and discussed disposition and treatment plan with the patient. Lab Data Labs: Lab Results 05/26/24 Range/Units 14:13 WBC 6.0 (4.0-11.0) 10^3/uL RBC 3.84 L (4.70-6.10) 10^6/uL Hgb 8.7 L (14.0-18.0) g/dL Hct 30.3 L (42.0-54.0) % MCV 78.9 L (80.0-94.0) fL MCH 22.7 L (25.9-34.0) pg MCHC 28.7 L (29.9-35.2) g/dL RDW 18.8 H (11.0-15.0) % Plt Count 394 (150-450) 10^3/uL MPV 9.0 L (9.5-13.5) fL Neut % (Auto) 58.3 (43.0-75.0) % Lymph % (Auto) 28.0 (20.5-60.0) % [place] % (Auto) 10.2 (1.7-12.0) % Eos % (Auto) 1.8 (0.9-7.0) % Baso % (Auto) 1.0 (0.2-2.0) % Neut # (Auto) 3.5 (1.4-6.5) 10^3/uL Lymph # (Auto) 1.7 (1.2-3.8) 10^3/uL [place] # (Auto) 0.6 (0.3-0.8) 10^3/uL Eos # (Auto) 0.1 (0.0-0.7) 10^3/uL Baso # (Auto) 0.1 (0.0-0.1) 10^3/uL Abs Immat Gran (auto) 0.04 H (0.00-0.03) 10^3/uL Imm/Tot Granulo (auto) 0.7 H (0.0-0.5) % Sodium 136 (136-145) mmol/L Potassium 4.2 (3.5-5.1) mmol/L Chloride 101 (98-107) mmol/L Carbon Dioxide 30.5 (21.0-32.0) mmol/L Anion Gap 8.7 BUN 9.0 (7.0-18.0) mg/dL Creatinine 0.98 (0.70-1.30) mg/dL Est GFR ( Amer) >60 (>=60 mL/min/1.73m^2) Est GFR (Non-Af Amer) >60 (>=60 mL/min/1.73m^2) BUN/Creatinine Ratio 9.2 Glucose 100 (74-106) mg/dL Lactate 1.5 (0.4-2.0) mmol/L Calcium 8.4 L (8.5-10.1) mg/dL Total Bilirubin 0.3 (0.2-1.0) mg/dL AST 29 (15-37) U/L ALT 59 (16-63) U/L Alkaline Phosphatase 278 H (46-116) U/L Total Protein 7.2 (6.4-8.2) g/dL Albumin 2.9 L (3.4-5.0) g/dL Globulin 4.3 g/dL Albumin/Globulin Ratio 0.7 Discharge Plan Discharge Chief Complaint: Recheck/Abnormal Lab/Rx Clinical Impression: Postoperative abscess Patient Disposition: Home, Self-Care Time of Disposition Decision: 16:24 Condition: Good Prescriptions / Home Meds: No Action amoxicillin-pot clavulanate 875-125 mg tablet latanoprost 0.005 % drops 1 drp OPHTHALMIC (EYE) DAILY Rx Instructions: HS levothyroxine 137 mcg tablet 137 mcg PO DAILY omeprazole 40 mg capsule,delayed release(DR/EC) 40 mg PO DAILY Print Language: Slovenian Instructions: Surgical Site Infections (ED) Additional Instructions: [facility] Referrals: MOISES THOMAS [Primary Care Provider] - 1 week Discharge Date/Time: 05/26/24 16:49
[2024-05-26] MEDS: WATER FOR IRRIGATION, STERILE 1,000 ML IRRIG BOTTLE 1000 ML IRR (16:42)
== END 2024-05-26 16:49 | disposition home or self-care (01) ==
PROVIDERS: Physician Assistant; Emergency Provider Emergency Medicine; Family Provider Physician Assistant; PCP Internal Medicine
DX: T81.43XA Infection following a procedure, organ and space surgical site, initial encounter (principal); T81.31XA Disruption of external operation (surgical) wound, not elsewhere classified, initial encounter; Z90.49 Acquired absence of other specified parts of digestive tract; Z98.890 Other specified postprocedural states
CPT/HCPCS: 36415; 74177; 80053; 83605; 85025; 87070; 87075; 87150; 87186; 99285; Q9967

== ENCOUNTER 2024-09-29 14:12 | Emergency (ER) | payer MEDICARE, SELFPAY ==
--- OUTSIDE RECORDS SUMMARY | 2024-09-21 13:00 | XMS_ITS | Encounter Summary ---
Author Organization [facility] Address [address] [place] [address] Care Team Providers Care Credit And Collection Manager Name Role Phone Bishop Turcios MD Unavailable Bishop Turcios MD Primary Care Provider [phone] Katie Villegas LPN Unavailable Unavailable Reason for Visit * Reason Comments Follow-up Lt lesionncheck Encounter Details Date Type Department Care Team (Late st Contact Info) Description 09/21/2024 1:00 PM EDT Office Visit [facility] [address] [facility] 120 [place] [phone] Bry Valentine, DPMarito [address] [facility] 5 [place] [address] Verruca plantaris (Primary Dx); Foot pain, left Social History Tobacco Use Types Packs/Day Years Used Date Smoking Tobacco: Never Smokeless Tobacco: Never Tobacco Cessation:Counseling Given: Yes Alcohol Use Standard Drinks/Week Comments Not Currently 0 (1 standard drink = 0.6 oz pur e alcohol) Social Connection and Isolation Panel [NHANES] A nswer Date Recorded Frequency of Communication with Friends and Fami ly Not on file 07/17/2024 Frequency of Social Gatherin gs with Friends and Family Not on file 07/17/2024 Attends Cheondoism Services Not on file 07/17 Active Member of Clubs or Organizations Not on f ile 07/17/2024 Attends Club or Organization Meetings Not on sanjay e 07/17/2024 Are you , , di vorced, , never , or living with a partner? Living with partner 07/17/2024 Overall Financial Resource Strain (CARDIA) Answe r Date Recorded How hard is it for you to pa y for the very basics like food, housing, medical care, and heating? Not hard at all 07/17/2024 PHQ-2 Answer Date Recorded Patient Health Questionnaire-2 Score 0 09/07/2024 Hunger Vital Sign Answer Date Recorded Within the past 12 months, y ou worried that your food would run out before you got the money to buy more. Never true 07/18/19 25 Within the past 12 months, t he food you bought just didn't last and you didn't have money to get more. Never true 07/17/2024 PRAPARE - Transportation Answer Date Re corded In the past 12 months, has l ack of transportation kept you from medical appointments or from getting medications? No 06/25 In the past 12 months, has l ack of transportation kept you from meetings, work, or from getting things needed for daily living? No 07/17/2024 Sex and Gender Information Value Date Recorded Sex Assigned at Not on file Legal Sex Male 8:05 PM EDT Gender Identity Not on file Sexual Orientation Not on file documented as of this encounter Last Filed Vital Signs Vital Sign Reading Time Taken Comments Blood Pressure - - Pulse - - Temperature - - Respiratory Rate 16 09/21/2024 1:03 PM EDT Oxygen Saturation - - Inhaled Oxygen Concentration - - Weight 78.9 kg (174 lb) 09/21/2024 1:03 PM EDT Height 172.7 cm (5' 8 ) 09/21/2024 1:03 PM EDT Body Mass Index 26.46 09/21/2024 1:03 PM EDT documented in this encounter Progress Notes * Bry Valentine, BANDAR - 09/21/2024 1:00 PM EDT Patient: Lennox Brokos : 1940 PCP: Bishop Turcios MD SUBJECTIVE Patient presents today for follow up of skin lesion/neoplasm of unknown origin to the left foot Pt states that previous treatment of acid tx with some improvement Pt rates pain the pain on a 1-10 scale an intensity of 5 Pt presents today for followup. Allergies: Allergies Allergen Reactions Bee Venom Meloxicam Hives Naproxen Hives Penicillin G Hives and Unknown Penicillins Swelling Per pt his fingers swell Past Medical History: Past Medical History: Diagnosis Date Actinic keratosis Basal cell carcinoma GERD (gastroesophageal reflux disease) History of being hospitalized 05/04/2024 Acute Gangrenous Cholecystitis with Perforation, Anemia Hypothyroidism (CMS/HCC) Medications: Current Outpatient Medications: aspirin 81 MG EC tablet, Take 1 tablet by mouth 1 (one) time each day at the same time., Disp: , Rfl: Calcium Carbonate-Vit D-Min (Calcium 600+D3 Plus Minerals) 600-800 MG-UNIT tablet, Take 1 tablet bymouth 1 (one) time each day at the same time., Disp: , Rfl: cyanocobalamin (Vitamin B-12) 100 MCG tablet, Take 1 tablet by mouth 1 (one) time each day at the same time., Disp: , Rfl: diphenhydrAMINE (Sominex) 25 MG tablet, Take 25 mg by mouth at bedtime Takes for sleep, Disp: , Rfl: Docusate Sodium (DSS) 100 MG capsule, Take 1 capsule by mouth Daily as needed., Disp: , Rfl: doxycycline (Vibramycin) 100 MG capsule, Take 1 capsule (100 mg) by mouth in the morning and 1 capsule (100 mg) before bedtime. Do all this for 7 days. Take with at least 8 ounces (large glass) of water, do not lie down for 30 minutes after., Disp: 14 capsule, Rfl: 0 ferrous sulfate 325 (65 Fe) MG tablet, Take 1 tablet by mouth 1 (one) time each day at the same time., Disp: , Rfl: latanoprost (Xalatan) 0.005 % ophthalmic solution, Administer 1 drop into both eyes in the morning., Disp: , Rfl: levothyroxine (Synthroid, Levoxyl) 137 MCG tablet, TAKE 1 TABLET BY MOUTH ONCE DAILY IN THE MORNINGBEFORE MEAL(S), Disp: 100 tablet, Rfl: 1 melatonin 5 MG tablet, Take 1 tablet by mouth 1 (one) time each day at the same time PRN, Disp: , Rfl: Multiple Vitamin (MULTIVITAMINS PO), Take 1 tablet by mouth 1 (one) time each day., Disp: , Rfl: omeprazole (PriLOSEC) [address] capsule, Take 1 capsule (40 mg) by mouth in the morning. Take beforemeals. Do not crush or chew.., Disp: 90 capsule, Rfl: 3 tiZANidine (Zanaflex) 4 MG tablet, Take 1 tablet (4 mg) by mouth every 12 (twelve) hours if needed for muscle spasms for up to 10 days, Disp: 20 tablet, Rfl: 0 Social History: Social History Socioeconomic History Marital status: Spouse name: Not on file Number of children: Not on file Years of education: Not on file Highest education level: Not on file Occupational History Not on file Tobacco Use Smoking status: Never Smokeless tobacco: Never Vaping Use Vaping status: Never Used Substance and Sexual Activity Alcohol use: Not Currently Drug use: Never Sexual activity: Defer Other Topics Concern Not on file Social History Narrative Not on file Social Drivers of Health Financial Resource Strain: Low Risk (07/17/2024) Overall Financial Resource Strain (CARDIA) Difficulty of Paying Living Expenses: Not hard at all Food Insecurity: No Food Insecurity (07/17/2024) Hunger Vital Sign Worried About Running Out of Food in the Last Year: Never true Ran Out of Food in the Last Year: Never true Transportation Needs: No Transportation Needs (07/17/2024) PRAPARE - Transportation Lack of Transportation (Medical): No Lack of Transportation (Non-Medical): No Physical Activity: Not on file Stress: Not on file Social Connections: Unknown (07/17/2024) Social Connection and Isolation Panel [NHANES] Frequency of Communication with Friends and Family: Not on file Frequency of Social Gatherings with Friends and Family: Not on file Attends Cheondoism Services: Not on file Active Member of Clubs or Organizations: Not on file Attends Club or Organization Meetings: Not on file Marital Status: Living with partner Intimate Partner Violence: Not on file Housing Stability: Unknown (05/21/2024) Received from [employer] Housing Stability Vital Sign Unable to Pay for Housing in the Last Year: No Number of Times Moved in the Last Year: Not on file Homeless in the Last Year: Not on file ROS: Gastrointestinal: denies abdominal pain, ulcers, or changes in appetite or bowel habits Musculoskeletal: 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 Cardiovascular: denies CP, palpitations, irregular rhythms OBJECTIVE LE EXAM: DERM: Positive hair growth to b/l feet with good skin turgor noted. Negative openings in skin. Nummular lesion measuring at the left sub 2nd metatarsal measuring 0.05 cm x 0.05 cm. VASC: Palpable pedal pulsed b/l with warm to cool tibia to toes b/l NEURO: Gross sensation intact digits 1-10 and b/l feet ORTHO: +5/5 DF/PF/IN/EV right, +5/5 DF/PF/IN/EV left. 20 degrees inversion and 10 degrees eversion STJ b/l. Ankle ROM less than 10 degrees b/l. Positive pain on palpation to left foot lesion XRAY: US: ASSESSMENT 1. Verruca plantaris 2. Foot pain, left PLAN Application of salinocaine acid medication to lesion/lesions located at left foot Informed pt of risks and benefits of procedure including high reoccurence rate, infection, pain andconsent given. Application of DSD post procedure. Bry Valentine DPM documented in this encounter Plan of Treatment Upcoming Encounters Date Type Department Care Team (Late st Contact Info) Description 10/03/2024 2:30 PM EDT Office Visit [facility] [address] [facility] 110 [place] [phone] Kesha Rojo PA 112 [facility] 110 [place] [address] 01/15/2025 1:00 PM EDT Office Visit [facility] [address] [facility] 110 [place] [address] Bishop Turcios MD 112 [facility] 110 [place] [address] 02/13/2025 1:40 PM EDT Office Visit [facility] [address] [place] [address] Kathrine Slater PA [address] [place] [address] documented as of this encounter Visit Diagnoses Diagnosis Verruca plantaris- Primary Plantar wart Foot pain, left Pain in soft tissues of limb documented in this encounter Additional Health Concerns Assessment Noted Time PHQ-9 Depression Total Score: 0 01/07/20 23 11:00 AM EDT documented as of this encounter Care Teams Credit And Collection Manager Relationship Specialty Start Date End Date Bishop Turcios MD 112 [facility] 110 [place] [address] PCP - Mk CAMILO 04/26/21 Bishop Turcios MD 112 [facility] 110 [place] [address] PCP - General Internal Medicine 09/01/22 Katie Villegas LPN 07/17/24 documented as of this encounter
[2024-09-29 14:17] VITALS: BP 121/58; PULSE 75; TEMP 37; O2SAT 98; BMI 25.1
--- OUTSIDE RECORDS SUMMARY | 2024-09-29 14:18 | XMS_ITS | Encounter Summary ---
Author Organization [facility] Address [address] [place] [address] Care Team Providers Care Magnetic Doctor Name Role Phone Bishop Turcios MD Unavailable [phone] Bishop Turcios MD Primary Care Provider [phone] Rachel Mukherjee BLOW TORCH OPERATOR Unavailable [phone] Katie Villegas LPN Unavailable Unavailable Encounter Details Date Type Department Care Team ([facility] Contact Info) Description 06/06/2024 Abstract [facility] 112 [facility] 110 [place] [phone] Bishop Turcios MD 112 [facility] 110 [place], [place] [phone] Social History Tobacco Use Types Packs/Day Years Used Date Smoking Tobacco: Never Smokeless Tobacco: Never Alcohol Use Standard Drinks/Week Comments Not Currently 0 (1 standard drink = 0.6 oz pur e alcohol) PHQ-2 Answer Date Recorded Patient Health Questionnaire-2 Score 0 01/10/2024 Sex and Gender Information Value Date Recorded Sex Assigned at Not on file Legal Sex Male 8:05 PM EDT Gender Identity Not on file Sexual Orientation Not on file documented as of this encounter Plan of Treatment Upcoming Encounters Date Type Department Care Team ([facility] Contact Info) Description 10/03/2024 2:30 PM EDT Office Visit [facility] 112 [facility] 110 [place] [address] Kesha Rojo PA 112 [facility] 110 [place], [place] [address] 01/15/2025 1:00 PM EDT Office Visit [facility] [address] [facility] 110 [place] [address] Bishop Turcios MD [address] [facility] 110 [place] [address] 02/13/2025 1:40 PM EDT Office Visit [facility] [address] [place] [address] Kathrine Slater, PA [address] [place] [address] documented as of this encounter Visit Diagnoses Not on filedocumented in this encounter Additional Health Concerns Assessment Noted Time PHQ-9 Depression Total Score: 0 01/07/20 23 11:00 AM EDT documented as of this encounter Care Teams Magnetic Doctor Relationship Specialty Start Date End Date Bishop Turcios MD [address] [facility] 110 [place] [address] PCP - Mk CAMILO 04/26/21 Bishop Turcios MD [address] [facility] 110 [place] [address] PCP - General Internal Medicine 09/01/22 Rachel Mukherjee LSW Discharging Machine Operator Family Medicine 07/10/24 07/17/24 Katie Vilelgas LPN 07/17/24 documented as of this encounter
--- OUTSIDE RECORDS SUMMARY | 2024-09-29 14:18 | XMS_ITS | Encounter Summary ---
Author Organization [facility] Address [address] [place] [address] Care Team Providers Care Coal Digger Name Role Phone Bishop Turcios MD Unavailable [phone] Bishop Turcios MD Primary Care Provider [phone] Katie Villegas LPN Unavailable Unavailable Encounter Details Date Type Department Care Team ([facility] Contact Info) Description 07/19/2024 Abstract [facility] 112 [facility] 110 [place] [phone] Bishop Turcios MD 112 [facility] 110 [place], [place] [id number] Social History Tobacco Use Types Packs/Day Years [...] and Family Not on file 07/17/2024 Attends Congregational Services Not on file 07/17 Active Member [...] Date Recorded Patient Health Questionnaire-2 Score 0 07/10/2024 Hunger Vital Sign Answer Date Recorded Within [...] Visit [facility] [address] [facility] 110 [place] [address] Kesha Rojo PA [address] [facility] 110 [place] [address] 01/15/2025 1:00 PM EDT Office Visit [facility] [address] [facility] 110 [place] [address] Bishop Turcios MD [address] [facility] 110 [place] [address] 02/13/2025 1:40 PM EDT Office Visit [facility] [address] [place] [address] Kathrine Slater, PA [address] [place] [address] documented as of this encounter Visit Diagnoses Not on filedocumented in this encounter Additional Health Concerns Assessment Noted Time PHQ-9 Depression Total Score: 0 01/07/20 11:00 AM EDT documented as of this encounter Care Teams Coal Digger Relationship Specialty Start Date End Date Bishop Turcios MD [address] [facility] 110 [place] [address] PCP - Mk CAMILO 04/26/21 Bishop Turcios MD [address] [facility] 110 [place] [address] PCP - General Internal Medicine 09/01/22 Katie Villegas LPN 07/17/24 documented as of this encounter
--- OUTSIDE RECORDS SUMMARY | 2024-09-29 14:18 | XMS_ITS | Encounter Summary ---
Author Organization [facility] Address [address] [place] [address] Care Team Providers Care Print And Pattern Designer Name Role Phone Bishop Turcios MD Unavailable [phone] Bishop Turcios MD Primary Care Provider [phone] Rachel Mukherjee CASTER OPERATOR Unavailable [phone] Katie Villegas LPN Unavailable Unavailable Encounter Details Date Type Department Care Team ([facility] Contact Info) Description 05/18/2024 Abstract [facility] 112 [facility] 110 [place] [address] Bishop Turcios MD 112 [facility] 110 [place], [place] [phone] Social History Tobacco Use Types Packs/Day Years [...] Upcoming Encounters Date Type Department Care Team ([facility] Contact Info) Description 10/03/2024 2:30 PM EDT Office Visit [facility] 112 [facility] 110 [place] [address] Kesha Rojo PA 112 [facility] 110 [place], [place] [address] 01/15/2025 1:00 PM EDT Office Visit [facility] [address] [facility] 110 [place] [address] Bishop Turcios MD [address] [facility] 110 [place] [address] 02/13/2025 1:40 PM EDT Office Visit [facility] [address] [place] [address] Kathrine Slater, PA [address] [place] [address] documented as of this encounter Visit Diagnoses Not on filedocumented in this encounter Additional Health Concerns Assessment Noted Time PHQ-9 Depression Total Score: 0 01/07/20 23 11:00 AM EDT documented as of this encounter Care Teams Print And Pattern Designer Relationship Specialty Start Date End Date Bishop Turcios MD [address] [facility] 110 [place] [address] PCP - Mk CAMILO 04/26/21 Bishop Turcios MD [address] [facility] 110 [place] [address] PCP - General Internal Medicine 09/01/22 Rachel Mukherjee LSW Metal Filer Family Medicine 07/10/24 07/17/24 Katie Villegas LPN 07/17/24 documented as of this encounter
--- OUTSIDE RECORDS SUMMARY | 2024-09-29 14:18 | XMS_ITS | Encounter Summary ---
Author Organization [facility] Address [address] [place] [address] Care Team Providers Care Keno Writer/Runner Name Role Phone Bishop Turcios MD Unavailable [phone] Bishop Turcios MD Primary Care Provider [phone] Rachel Mukherjee PRODUCTION OFFICER Unavailable [phone] Katie Villegas LPN Unavailable Unavailable Encounter Details Date Type Department Care Team ([facility] Contact Info) Description 05/05/2024 Abstract [facility] 112 [facility] 110 [place] [address] Bishop Turcios MD 112 [facility] 110 [place], [place] [address] Social History Tobacco Use Types Packs/Day Years [...] Upcoming Encounters Date Type Department Care Team ([facility] Contact Info) Description 10/03/2024 2:30 PM EDT Office Visit [facility] 112 [facility] 110 [place] [phone] Kesha Rojo PA 112 [facility] 110 [place], [place] [address] 01/15/2025 1:00 PM EDT Office Visit [facility] [address] [facility] 110 [place] [address] Bishop Turcios MD [address] [facility] 110 [place] [address] 02/13/2025 1:40 PM EDT Office Visit [facility] [address] [place] [address] Kathrine Slater, PA [address] [place] [address] documented as of this encounter Visit Diagnoses Not on filedocumented in this encounter Additional Health Concerns Assessment Noted Time PHQ-9 Depression Total Score: 0 01/07/20 23 11:00 AM EDT documented as of this encounter Care Teams Keno Writer/Runner Relationship Specialty Start Date End Date Bishop Turcios MD [address] [facility] 110 [place] [address] PCP - Mk CAMILO 04/26/21 Bishop Turcios MD [address] [facility] 110 [place] [address] PCP - General Internal Medicine 09/01/22 Rachel Mukherjee LSW Aeronautical Engineering Technologist Family Medicine 07/10/24 07/17/24 Katie Villegas LPN 07/17/24 documented as of this encounter
--- OUTSIDE RECORDS SUMMARY | 2024-09-29 14:18 | XMS_ITS | Encounter Summary ---
Author Organization [facility] Address [address] [place] [address] Care Team Providers Care Supervisor Cutting And Sewing Room Name Role Phone Bishop Turcios MD Unavailable [phone] Bishop Turcios MD Primary Care Provider [phone] Rachel Mukherjee COIL REPAIR TECHNICIAN Unavailable [phone] Katie Villegas LPN Unavailable Unavailable Encounter Details Date Type Department Care Team ([facility] Contact Info) Description 05/15/2024 Abstract [facility] 112 [facility] 110 [place] [address] Bishop Turcios MD 112 [facility] 110 [place], [place] [phone] Social History Tobacco Use Types Packs/Day Years [...] Upcoming Encounters Date Type Department Care Team ([facility] Contact Info) Description 10/03/2024 2:30 PM EDT Office Visit [facility] 112 [facility] 110 [place] [address] Kesha Rojo PA 112 [facility] 110 [place], [place] [address] 01/15/2025 1:00 PM EDT Office Visit [facility] [address] [facility] 110 [place] [address] Bishop Turcios MD [address] [facility] 110 [place] [address] 02/13/2025 1:40 PM EDT Office Visit [facility] [address] [place] [address] Kathrine Slater, PA [address] [place] [address] documented as of this encounter Visit Diagnoses Not on filedocumented in this encounter Additional Health Concerns Assessment Noted Time PHQ-9 Depression Total Score: 0 01/07/20 23 11:00 AM EDT documented as of this encounter Care Teams Supervisor Cutting And Sewing Room Relationship Specialty Start Date End Date Bishop Turcios MD [address] [facility] 110 [place] [address] PCP - Mk CAMILO 04/26/21 Bishop Turcios MD [address] [facility] 110 [place] [address] PCP - General Internal Medicine 09/01/22 Rachel Mukherjee LSW Manager Wound Care Family Medicine 07/10/24 07/17/24 Katie Villegas LPN 07/17/24 documented as of this encounter
--- OUTSIDE RECORDS SUMMARY | 2024-09-29 14:18 | XMS_ITS | Encounter Summary ---
Author Organization [facility] Address [address] [place] [address] Care Team Providers Care Sleep Lab Technologist Name Role Phone Bishop Turcios MD Unavailable [phone] Bishop Turcios MD Primary Care Provider [phone] Rachel Mukherjee DIRECTIONAL DRILLER Unavailable [phone] Katie Villegas LPN Unavailable Unavailable Encounter Details Date Type Department Care Team (Late Contact Info) Description 06/21/2024 Orders Only [facility] 112 [facility] 110 [place] [phone] Unallocated, Noms Provider, [address] [place], [place] [address] Social History Tobacco Use Types Packs/Day Years [...] Encounters Date Type Department Care Team (Late Contact Info) Description 10/03/2024 2:30 PM EDT Office Visit [facility] [address] [facility] 110 [place] [address] Kesha Rojo, PA 112 [facility] 110 [place], [place] [address] 01/15/2025 1:00 PM EDT Office Visit [facility] ELLEN [facility] [address] [place] [address] [place] [address] Bishop Turcios MD [address] [place] [address] 02/13/2025 1:40 PM EDT Office Visit [facility] [address] [place] [address] Kathrine Slater, PA [address] [place] [address] documented as of this encounter Procedures Procedure Name Priority Date/Time Associated Diagnosis Comments URINALYSIS, COMPLETE Routine 06/21/2024 7:49 AM EST CBC Routine 06/21/2024 7:49 AM EST FERRITIN Routine 06/21/2024 7:49 AM EST COMPREHENSIVE METABOLIC PANEL Routine 06/21/2024 7:49 AM EST documented in this encounter Results * CBC (06/21/2024 7:49 AM EST) Blood Venous blood specimen / Unknown us [facility] Provider Unallocated MD LAB BLOOD ORDERABLE S Final Result * Comprehensive metabolic panel (06/21/2024 7:49 AM EST) Blood Venous blood specimen / Unknown us [facility]oms Provider Unallocated MD LAB BLOOD ORDERABLE S Final Result * Urinalysis with microscopic (06/21/2024 7:49 AM EST) Urine Urine specimen obtained by clean catch procedure / Unknown us [facility] Provider Unallocated MD LAB URINE ORDERABLE S Final Result * Ferritin (06/21/2024 7:49 AM EST) Blood Venous blood specimen / Unknown us Noms Provider Unallocated LAB BLOOD ORDERABLE S Final Result documented in this encounter Visit Diagnoses Not on filedocumented in this encounter Additional Health Concerns Assessment Noted Time PHQ-9 Depression Total Score: 0 01/07/20 23 11:00 AM EDT documented as of this encounter Care Teams Sleep Lab Technologist Relationship Specialty Start Date End Date Bishop Turcios MD [address] [facility] 110 [place] [address] PCP - Mk CAMILO 04/26/21 Bishop Turcios MD [address] [facility] 110 [place] [address] PCP - General Internal Medicine 09/01/22 Rachel Mukherjee LSW Mold Maintenance Technician Family Medicine 07/10/24 07/17/24 Katie Villegas LPN 07/17/24 documented as of this encounter
--- OUTSIDE RECORDS SUMMARY | 2024-09-29 14:18 | XMS_ITS | Encounter Summary ---
Author Organization [facility] Address [address] [place] [address] Care Team Providers Care Supervisor Molding Name Role Phone Bishop Turcios MD Unavailable [phone] Bishop Turcios MD Primary Care Provider [phone] Katie Villegas LPN Unavailable Unavailable Encounter Details Date Type Department Care Team ([facility] Contact Info) Description 07/20/2024 Abstract [facility] 112 [facility] 110 [place] [address] Bishop Turcios MD 112 [facility] 110 [place], [place] [address] Social History Tobacco Use Types Packs/Day Years [...] and Family Not on file 07/17/2024 Attends Mandaeism Services Not on file 07/17 Active Member [...] Visit [facility] [address] [facility] 110 [place] [address] Kesha Rojo PA [address] [facility] 110 [place] [address] 01/15/2025 1:00 PM EDT Office Visit [facility] [address] [facility] 110 [place] [address] Bishop Turcios MD [address] [facility] 110 [place] [address] 02/13/2025 1:40 PM EDT Office Visit [facility] [address] [place] [address] Kathrine Slater, PA [address] [place] [address] documented as of this encounter Visit Diagnoses Not on filedocumented in this encounter Additional Health Concerns Assessment Noted Time PHQ-9 Depression Total Score: 0 01/07/20 11:00 AM EDT documented as of this encounter Care Teams Supervisor Molding Relationship Specialty Start Date End Date Bishop Turcios MD [address] [facility] 110 [place] [address] PCP - Mk CAMILO 04/26/21 Bishop Turcios MD [address] [facility] 110 [place] [address] PCP - General Internal Medicine 09/01/22 Katie Villegas LPN 07/17/24 documented as of this encounter
--- OUTSIDE RECORDS SUMMARY | 2024-09-29 14:18 | XMS_ITS | Encounter Summary ---
Author Organization [facility] Address [address] [place] [address] Care Team Providers Care Gas Line Installer Supervisor Name Role Phone Moises Turcios MD Unavailable [phone] Moises Turcios MD Primary Care Provider [phone] Rachel Mukherjee ORCHID SUPERINTENDENT Unavailable [phone] Katie Villegas LPN Unavailable Unavailable Encounter Details Date Type Department Care Team (Late Contact Info) Description 05/04/2024 Clinisync Result Encounter N[facility] External Department Unsolicited Larry Lind, COMPUTER HARDWARE TECHNICIAN [address] [facility] 110 [place], [place] [id number] Social History Tobacco Use Types Packs/Day Years [...] CI FM [address] [place] [address] [place] [address] Kesha Rojo PA [address] [facility] [address] [place], [place] [address] 01/15/2025 1:00 PM EDT Office Visit [facility] 112 [facility] 110 [place] [address] Moises Turcios MD 112 [facility] 110 [place] [address] 02/13/2025 1:40 PM EDT Office Visit [facility] [address] [place] [address] Kathrine Slater, ANN-MARIE [address] [place] [address] documented as of this encounter Procedures Procedure Name Priority Date/Time Associated Diagnosis Comments XR ABDOMEN MIN 2V 05/04/2024 5:1 9 PM EST documented in this encounter Results * XR ABDOMEN MIN 2V (05/04/2024 5:19 PM EST) Anatomical Region Laterality Modality Other 05/04/2024 5:19 PM EST Narrative 05/04/2024 5:22 PM EST [address] [address] XRay Report Signed Patient: LENNOX BROOKS MR#: [id number] : 1940 Acct:[id number] Age/Sex: 83 / M ADM Date: 05/04/24 Loc: RAD Attending Dr: LARRY LIND Ordering Physician: LARRY LIND Date of Service: 05/04/24 Procedure(s): XR abdomen min 2V Accession Number(s): [id number] cc: MOISES TURCIOS ; LARRY LIND [address] [address] Patient Name: LENNOX BROOKS MRN: [id number] date: 1940 Sex: M Assigned Patient Location: RAD Current Patient Location: ED.MAIN Accession/Order Number: [id number] Exam Date: 05/04/2024 16:30 Report Date: 05/04/2024 17:19 At the request of: LARRY LIND Procedure: XR abdomen min 2V EXAM: XR abdomen min 2V REASON FOR EXAM: Male, 83 years, GENERALIZED ABDOMINAL PAIN R10.84. TECHNIQUE: Supine and upright views of the abdomen and pelvis are performed. COMPARISON: None. FINDINGS: The lung bases are clear. There is gaseous distention of large and small bowel. Small bowel diameter measures up to 3.9 cm in diameter. There is a moderate amount of stool within the right and transverse colon. There is no demonstrated free abdominal air. The visualized liver, spleen, and kidneys are grossly normal in size and morphology. Normal soft tissue structures. Normal osseous structures. XR/XR abdomen min 2V IMPRESSION: There is gaseous distention of large and small bowel, suggesting generalized ileus. Moderate stool throughout the colon. Electronically authenticated by: ZIA CHINCHILLA Date: 05/04/2024 17:19 Dictated By: Zia Chinchilla M.D. Signed By: 05/04/24 1722 DD/ 1719 TD/TT: Installation Manager: Procedure Note Radiology, Radiologist, MD - 05/04/2024 [place] [address] XRay Report Signed Patient: LENNOX BROOKS LMR#: [id number] : 1940cct:[id number] Age/Sex: 83 / MADM Date: 05/04/24 Loc: [facility] Attending Dr: LARRY LIND Ordering Physician: LARRY LIND Date of Service: 05/04/24 Procedure(s): XR abdomen min 2V Accession Number(s): [id number] cc: MOISES TURCIOS ; LARRY LIND [place] [address] Patient Name: LENNOX BROOKS MRN: [id number] date: 1940 Sex: M Assigned Patient Location: [facility] Current Patient Location: ED.MAIN Accession/Order Number: [id number] Exam Date: 05/04/2024 16:30 Report Date: 05/04/2024 17:19 At the request of: LARRY LIND Procedure: XR abdomen min 2V EXAM: XR abdomen min 2V REASON FOR EXAM: Male, 83 years, GENERALIZED ABDOMINAL PAIN R10.84. TECHNIQUE: Supine and upright views of the abdomen and pelvis areperformed. COMPARISON: None. FINDINGS: The lung bases are clear. There is gaseous distention of large and small bowel. Small bowel diameter measures up to 3.9 cm in diameter. There is amoderate amount of stool within the right and transverse colon. There is no demonstrated free abdominal air. The visualized liver, spleen, and kidneys are grossly normal in size and morphology. Normal soft tissue structures. Normal osseous structures. XR/XR abdomen min 2V IMPRESSION: There is gaseous distention of large and small bowel, suggestinggeneralized ileus. Moderate stool throughout the colon. Electronically authenticated by: ZIA CHINCHILLA Date: 05/04/2024 17:19 Dictated By: Zia Chinchilla M.D. Signed By:05/04/24 1722 DD/ 1719 TD/TT: Installation Manager: us Larry Lind COMPUTER HARDWARE TECHNICIAN [facility] Final Resu lt documented in this encounter Visit Diagnoses Not on filedocumented in this encounter Additional Health Concerns Assessment Noted Time PHQ-9 Depression Total Score: 0 01/07/20 23 11:00 AM EDT documented as of this encounter Care Teams Gas Line Installer Supervisor Relationship Specialty Start Date End Date Moises Turcios MD [address] [facility] 110 [place] [address] PCP - Mk CAMILO 04/26/21 Moises Turcios MD [address] [facility] 110 [place] [address] PCP - General Internal Medicine 09/01/22 Rachel Mukherjee LSW Car Construction Superintendent Family Medicine 07/10/24 07/17/24 Katie Villegas LPN 07/17/24 documented as of this encounter
--- OUTSIDE RECORDS SUMMARY | 2024-09-29 14:18 | XMS_ITS | Encounter Summary ---
Author Organization [facility] Address [address] [place] [address] Care Team Providers Care Wind Site Manager Name Role Phone Bishop Turcios MD Unavailable [phone] Bishop Turcios MD Primary Care Provider [phone] Rachel Mukherjee CLINICAL DIETETIC TECHNICIAN Unavailable [phone] Katie Villegas LPN Unavailable Unavailable Encounter Details Date Type Department Care Team ([facility] Contact Info) Description 05/22/2024 Abstract [facility] 112 [facility] 110 [place] [address] Bishop Turcios MD 112 [facility] 110 [place], [place] [address] Social History Tobacco Use Types Packs/Day Years [...] Upcoming Encounters Date Type Department Care Team ([facility] Contact Info) Description 10/03/2024 2:30 PM EDT Office Visit [facility] 112 [facility] 110 [place] [address] Kesha Rojo PA 112 [facility] 110 [place], [place] [address] 01/15/2025 1:00 PM EDT Office Visit [facility] [address] [facility] 110 [place] [address] Bishop Turcios MD [address] [facility] 110 [place] [address] 02/13/2025 1:40 PM EDT Office Visit [facility] [address] [place] [address] Kathrine Slater, PA [address] [place] [place] [address] documented as of this encounter Visit Diagnoses Not on filedocumented in this encounter Additional Health Concerns Assessment Noted Time PHQ-9 Depression Total Score: 0 01/07/20 23 11:00 AM EDT documented as of this encounter Care Teams Wind Site Manager Relationship Specialty Start Date End Date Bishop Turcios MD [address] [facility] 110 [place] [address] PCP - Mk CAMILO 04/26/21 Bishop Turcios MD [address] [facility] 110 [place] [address] PCP - General Internal Medicine 09/01/22 Rachel Mukherjee LSW Room Service Attendant Family Medicine 07/10/24 07/17/24 Katie Villegas LPN 07/17/24 documented as of this encounter
--- OUTSIDE RECORDS SUMMARY | 2024-09-29 14:18 | XMS_ITS | Encounter Summary ---
Author Organization [facility] Address [address] [place] [address] Care Team Providers Care Health Actuary Name Role Phone Bishop Turcios MD Unavailable [phone] Bishop Turcios MD Primary Care Provider [phone] Rachel Mukherjee STUDIO SALES ASSOCIATE Unavailable [phone] Katie Villegas LPN Unavailable Unavailable Encounter Details Date Type Department Care Team ([facility] Contact Info) Description 06/21/2024 Abstract [facility] 112 [facility] 110 [place] [address] Bishop Turcios MD 112 [facility] 110 [place], [place] [address] Social History Tobacco Use Types Packs/Day Years [...] Upcoming Encounters Date Type Department Care Team ([facility] Contact Info) Description 10/03/2024 2:30 PM EDT Office Visit [facility] 112 [facility] 110 [place] [address] Kesha Rojo PA 112 [facility] 110 [place], [place] [address] 01/15/2025 1:00 PM EDT Office Visit [facility] [address] [facility] 110 [place] [address] Bishop Turcios MD [address] [facility] 110 [place] [address] 02/13/2025 1:40 PM EDT Office Visit [facility] [address] [place] [address] Kathrine Slater, PA [address] [place] [address] documented as of this encounter Visit Diagnoses Not on filedocumented in this encounter Additional Health Concerns Assessment Noted Time PHQ-9 Depression Total Score: 0 01/07/20 23 11:00 AM EDT documented as of this encounter Care Teams Health Actuary Relationship Specialty Start Date End Date Bishop Turcios MD [address] [facility] 110 [place] [address] PCP - Mk CAMILO 04/26/21 Bishop Turcios MD [address] [facility] 110 [place] [address] PCP - General Internal Medicine 09/01/22 Rachel Mukherjee LSW Purchasing Officer Family Medicine 07/10/24 07/17/24 Katie Villegas LPN 07/17/24 documented as of this encounter
--- OUTSIDE RECORDS SUMMARY | 2024-09-29 14:18 | XMS_ITS | Encounter Summary ---
Author Organization [facility] Address [address] [place] [address] Care Team Providers Care Booster Pump Oiler Name Role Phone Bishop Turcios MD Unavailable [phone] Bishop Turcios MD Primary Care Provider [phone] Katie Villegas LPN Unavailable Unavailable Encounter Details Date Type Department Care Team ([facility] Contact Info) Description 08/03/2024 Orders Only [facility] [address] [facility] 110 [place] [address] Kesha Rojo PA [address] [facility] 110 [place], [place] [phone] Microcytic anemia Social History Tobacco Use Types Packs/Day Years [...] and Family Not on file 07/17/2024 Attends [employer] Services Not on file 07/17 Active Member [...] Visit [facility] [address] [facility] 110 [place] [address] Kesha Rojo PA [address] [facility] 110 [place] [address] 01/15/2025 1:00 PM EDT Office Visit [facility] [address] [facility] 110 [place] [address] Bishop Turcios MD [address] [facility] 110 [place] [address] 02/13/2025 1:40 PM EDT Office Visit [facility] [address] [place] [address] Kathrine Slater, PA [address] [place] [address] documented as of this encounter Visit Diagnoses Diagnosis Microcytic anemia Unspecified iron deficiency anemia documented in this encounter Additional Health Concerns Assessment Noted Time PHQ-9 Depression Total Score: 0 01/07/20 23 11:00 AM EDT documented as of this encounter Care Teams Booster Pump Oiler Relationship Specialty Start Date End Date Bishop Turcios MD [address] [facility] 110 [place] [address] PCP - Mk CAMILO 04/26/21 Bishop Turcios MD [address] [facility] 110 [place] [address] PCP - General Internal Medicine 09/01/22 Katie Villegas LPN 07/17/24 documented as of this encounter
--- OUTSIDE RECORDS SUMMARY | 2024-09-29 14:18 | XMS_ITS | Encounter Summary ---
Author Organization [facility] Address [address] [place] [address] Care Team Providers Care Hand Stapler Name Role Phone Bishop Turcios MD Unavailable [phone] Bishop Turcios MD Primary Care Provider [phone] Rachel Mukherjee EXCELLENCE COACH Unavailable [phone] Katie Villegas LPN Unavailable Unavailable Encounter Details Date Type Department Care Team (Late Contact Info) Description 05/05/2024 Orders Only [facility] 112 [facility] 110 [place] [address] Unallocated, Noms Provider, [address] [place], [place] [address] Social History Tobacco Use Types Packs/Day Years [...] Office Visit [facility] [address] [facility] 110 [place] [address] Kesha Rojo, PA 112 [facility] 110 [place], [place] [address] 01/15/2025 1:00 PM EDT Office Visit [facility] [address] [facility] 110 [place] [address] Bishop Turcios MD [address] [facility] 110 [place] [address] 02/13/2025 1:40 PM EDT Office Visit [facility] [address] [place] [address] Kathrine Slater, PA [address] [place] [place] [address] documented as of this encounter Procedures Procedure Name Priority Date/Time Associated Diagnosis Comments XR CHEST 2 VIEWS Routine 05/05/2024 12:03 PM EST documented in this encounter Results * XR chest 2 views (05/05/2024 12:03 PM EST) Anatomical Region Laterality Modality Chest Radiographic Jackie ging us Noms Provider Unallocated IMOnel XR PROCEDURES F inal Result documented in this encounter Visit Diagnoses Not on filedocumented in this encounter Additional Health Concerns Assessment Noted Time PHQ-9 Depression Total Score: 0 01/07/20 23 11:00 AM EDT documented as of this encounter Care Teams Hand Stapler Relationship Specialty Start Date End Date Bishop Turcios MD [address] [facility] 110 [place] [address] PCP - Mk CAMILO 04/26/21 Bishop Turcios MD [address] [facility] 110 [place] [address] PCP - General Internal Medicine 09/01/22 Rachel Mukherjee LSW Gelatin Dynamite Packing Operator Family Medicine 07/10/24 07/17/24 Katie Villegas LPN 07/17/24 documented as of this encounter
--- OUTSIDE RECORDS SUMMARY | 2024-09-29 14:18 | XMS_ITS | Clinical Summary ---
Author Organization [facility] Address [address] [place], [place] [address] Care Team Providers Care [employer] Dean Name Role Phone Tam ZAMORA MD, Bishop Cameron Primary Care Provider [phone] Kesha Rojo PA Unavailable [phone] Allergies Active Allergy Reactions Criticality Noted Date Comments Naproxen Swelling 06/20/2019 Penicillins Rash 06/20/2019 Medications acetaminophen 650 mg CR tablet Take 650 mg by mouth three times daily as needed. Active aspirin, enteric coated (ASPIRIN, ENTERIC COATED) 81 mg EC tablet Take 81 mg by mouth once daily. Active calcium citrate (CALCITRATE) 200 mg (950 mg) tab Take 1 tablet by mouth twice daily. Active diphenhydrAMINE (BENADRYL) 25 mg tablet Take 25 mg by mouth as needed. Active docusate sodium (COLACE) 100 mg capsule Take 100 mg by mouth once daily. Active Levothyroxine 150 mcg cap Take 150 mcg by mouth once daily. Active FERROUS GLUCONATE ORAL Take 65 mg by mouth once daily. Active therapeutic multivitamin w/ iron (THERAGRAN-M) 9 mg iron-400 mcg tablet Take 1 tablet by mouth once daily. Active Omeprazole 40 mg capsule Take 40 mg by mouth once daily. 09/17/2016 Active omega-3 fatty acids/fish oil (FISH OIL-OMEGA-3 FATTY ACIDS) 300-1,000 mg cap Take 1 g by mouth twice daily. Active Immunizations Immunization Administration Dates Next Due influenza (HD-IIV3) vaccine, age 65+ yr, high dose, trivalent, PF (FLUZONE HIGH-DOSE) 02/08/2019 pneumococcal conjugate (PCV1 3) vaccine, 13 valent (PREVNAR 13) 12/23/2018 Social History Tobacco Use Types Packs/Day Years Used Date Smoking Tobacco: Former Smokeless Tobacco: Former Chew Area Deprivation Index Answer Date Jm rded National Score (1-100), lower number is lower ri sk Not on file 04/01/2020 State Score (1-10), lower number is lower risk N ot on file 04/01/2020 Data from: https://www.neighborhoodatlas.medicine.[facility]/. Last address used for calculation Not on file 04/01/2020 Sex and Gender Information Value Date Recorded Sex Assigned at Not on file Legal Sex Male 9:07 AM EST Gender Identity Not on file Sexual Orientation Not on file Last Filed Vital Signs Vital Sign Reading Time Taken Comments Blood Pressure 120/61 06/20/2019 1:49 PM EST Pulse 69 06/20/2019 1:49 PM EST Temperature - - Respiratory Rate - - Oxygen Saturation - - Inhaled Oxygen Concentration - - Weight 88.9 kg (196 lb) 06/20/2019 1:49 PM EST Height 175.3 cm (5' 9 ) 06/20/2019 1:49 PM EST Body Mass Index 28.94 06/20/2019 1:49 PM EST Plan of Treatment Health Maintenance Due Date Last Done Comments Anxiety Screening 1960 Depression Screening 1958 DTaP,Tdap,Td Vaccine (1 - Tdap) 1961 Shingrix Vaccine (1 of 2) 1992 RSV Vaccine (1 - 1-dose 75+ series) 2017 Pneumococcal Vaccine: 50+ (2 of 2 - PPSV23) 12/24/2019 12/23/2018 Diabetes Screening 2021 2018 Covid-19 Vaccine ( season) 2023 Advance Directive Discussion 04/26/2024 Influenza Vaccine (Season Ended) 2024 02/09/20 19 Insurance [facility] HMO Care Teams [employer] Dean Relationship Specialty Start Date End Date Bishop Turcios II, MD [address] [facility] 110 [place], [place] [id number] PCP - General Internal Medicine 06/08/19 Kesha Rojo PA [address] [facility] 110 [place] [address] Referring Family Medicine 06/08/19
--- OUTSIDE RECORDS SUMMARY | 2024-09-29 14:18 | XMS_ITS | Encounter Summary ---
Author Organization [facility] Address [address] [place] [address] Care Team Providers Care Occupational Therapy Teacher Name Role Phone Bishop Turcios MD Unavailable [phone] Bishop Turcios MD Primary Care Provider [phone] Rachel Mukherjee Unavailable [phone] Katie Villegas LPN Unavailable Unavailable Encounter Details Date Type Department Care Team (Late Contact Info) Description 07/10/2024 Abstract [facility] 112 [facility] 110 [place] [address] Bishop Turcios MD 112 [facility] 110 [place] [address] Social History Tobacco Use Types Packs/Day Years Used Date Smoking Tobacco: Never Smokeless Tobacco: Never Alcohol Use Standard Drinks/Week Comments Not Currently 0 (1 standard drink = 0.6 oz pur e alcohol) PHQ-2 Answer Date Recorded Patient Health Questionnaire-2 Score 0 07/10/2024 Sex and Gender Information Value Date Recorded Sex Assigned at Not on file Legal Sex Male 8:05 PM EDT Gender Identity Not on file Sexual Orientation Not on file documented as of this encounter Functional Status * Over the past 2 weeks, how often have you been bothered by any of the following problems? Question Answer Date of Assessment Author Little interest or pleasure in doing things Not at all 07/10/2024 1:00 PM EDT Mandi Alamo LP N Feeling down, depressed, or hopeless Not at all 07/10/2024 1:00 PM EDT Dukles, Mandi, LP N Patient Health Questionnaire -2 Score 0 07/10/2024 1:00 PM EDT Mandi Alamo LP N documented as of this encounter Plan of Treatment Upcoming Encounters Date Type Department Care Team (Late st Contact Info) Description 10/03/2024 2:30 PM EDT Office Visit [facility] [address] [facility] [address] [place] [address] Kesha Rojo PA [address] [facility] [address] [place] [address] 01/15/2025 1:00 PM EDT Office Visit [facility] [address] [facility] [address] [place] [address] Bishop Turcios MD [address] [facility] [address] [place] [address] 02/13/2025 1:40 PM EDT Office Visit [facility] [address] [place] [address] Kathrine Slater PA [address] [place] [address] documented as of this encounter Visit Diagnoses Not on filedocumented in this encounter Additional Health Concerns Assessment Noted Time PHQ-9 Depression Total Score: 0 01/07/20 23 11:00 AM EDT documented as of this encounter Care Teams Occupational Therapy Teacher Relationship Specialty Start Date End Date Bishop Turcios MD [address] [facility] [address] [place] [address] PCP - Mk CAMILO 04/26/21 Bishop Turcios MD [address] [facility] [address] [place] [address] PCP - General Internal Medicine 09/01/22 Rachel Mukherjee LSW Data Processing Control Clerk Family Medicine 07/10/24 07/17/24 Katie Villegas LPN 07/17/24 documented as of this encounter
--- OUTSIDE RECORDS SUMMARY | 2024-09-29 14:19 | XMS_ITS | Encounter Summary ---
Author Organization [facility] Address [address] [place] [address] Care Team Providers Care Sap Manager Name Role Phone Bishop Turcios MD Unavailable [phone] Bishop Turcios MD Primary Care Provider [phone] Rachel Mukherjee DESILVERIZER Unavailable [phone] Katie Villegas LPN Unavailable Unavailable Encounter Details Date Type Department Care Team ([facility] Contact Info) Description 01/12/2024 Abstract [facility] 112 [facility] 110 [place] [address] Bishop Turcios MD 112 [facility] 110 [place], [place] [id number] Social History Tobacco Use Types Packs/Day Years [...] Upcoming Encounters Date Type Department Care Team ([facility] Contact Info) Description 10/03/2024 2:30 PM EDT Office Visit [facility] 112 [facility] 110 [place] [address] Kesha Rojo PA 112 [facility] 110 [place], [place] [address] 01/15/2025 1:00 PM EDT Office Visit [facility] [address] [facility] 110 [place] [address] Bishop Turcios MD [address] [facility] 110 [place] [address] 02/13/2025 1:40 PM EDT Office Visit [facility] [address] [place] [address] Kathrine Slater, PA [address] [place] [address] documented as of this encounter Visit Diagnoses Not on filedocumented in this encounter Additional Health Concerns Assessment Noted Time PHQ-9 Depression Total Score: 0 01/07/20 23 11:00 AM EDT documented as of this encounter Care Teams Sap Manager Relationship Specialty Start Date End Date Bishop Turcios MD [address] [facility] 110 [place] [address] PCP - Mk CAMILO 04/26/21 Bishop Turcios MD [address] [facility] 110 [place] [address] PCP - General Internal Medicine 09/01/22 Rachel Mukherjee LSW Sewing Machine Repairer Helper Family Medicine 07/10/24 07/17/24 Katie Villegas LPN 07/17/24 documented as of this encounter
--- OUTSIDE RECORDS SUMMARY | 2024-09-29 14:19 | XMS_ITS | Encounter Summary ---
Author Organization [facility] Address [address] [place] [address] Care Team Providers Care Manager System Name Role Phone Bishop Turcios MD Unavailable [phone] Bishop Turcios MD Primary Care Provider [phone] Rachel Mukherjee CLIP ON SUNGLASSES INSPECTOR Unavailable [phone] Katie Villegas LPN Unavailable Unavailable Encounter Details Date Type Department Care Team ([facility] Contact Info) Description 01/27/2024 Abstract [facility] [address] [facility] 110 [place] [address] Bishop Turcios MD 112 [facility] 110 [place], [place] [id number] Social History Tobacco Use Types Packs/Day Years [...] Upcoming Encounters Date Type Department Care Team ([facility] Contact Info) Description 10/03/2024 2:30 PM EDT Office Visit [facility] [address] [facility] 110 [place] [address] Kesha Rojo PA 112 [facility] 110 [place], [place] [address] 01/15/2025 1:00 PM EDT Office Visit [facility] [address] [facility] 110 [place] [address] Bishop Turcios MD [address] [facility] 110 [place] [address] 02/13/2025 1:40 PM EDT Office Visit [facility] [address] [place] [address] Kathrine Slater, PA [address] [place] [address] documented as of this encounter Visit Diagnoses Not on filedocumented in this encounter Additional Health Concerns Assessment Noted Time PHQ-9 Depression Total Score: 0 01/07/20 23 11:00 AM EDT documented as of this encounter Care Teams Manager System Relationship Specialty Start Date End Date Bishop Turcios MD [address] [facility] 110 [place] [address] PCP - Mk CAMILO 04/26/21 Bishop Turcios MD [address] [facility] 110 [place] [address] PCP - General Internal Medicine 09/01/22 Rachel Mukherjee LSW Electric Motorman Family Medicine 07/10/24 07/17/24 Katie Villegas LPN 07/17/24 documented as of this encounter
--- OUTSIDE RECORDS SUMMARY | 2024-09-29 14:19 | XMS_ITS | Encounter Summary ---
Author Organization [facility] Address [address] [place] [address] Care Team Providers Care Ring Sewer Name Role Phone Bishop Turcios MD Unavailable [phone] Bishop Turcios MD Primary Care Provider [phone] Katie Villegas LPN Unavailable Unavailable Encounter Details Date Type Department Care Team ([facility] Contact Info) Description 08/28/2024 Results Follow-Up [facility] [address] [place] [address] Kathrine Slater PA [address] [facility] [address] [place] [address] Social History Tobacco Use Types Packs/Day Years [...] and Family Not on file 07/17/2024 Attends [employer] Services Not on file 07/17 Active Member [...] Date Recorded Patient Health Questionnaire-2 Score 0 08/17/2024 Hunger Vital Sign Answer Date Recorded Within [...] on file documented as of this encounter Miscellaneous Notes * Result Encounter Note - ANN-MARIE Perez - 08/28/2024 11:00 AM EDT Right chest - Nodular BCC. Recommend [address] Suarez. Thanks! documented in this encounter Plan of Treatment Upcoming Encounters Date Type Department Care Team (Late st Contact Info) Description 10/03/2024 2:30 PM EDT Office Visit [facility] [address] [facility] 110 [place] [address] Kesha Rojo PA [address] [facility] 110 [place] [address] 01/15/2025 1:00 PM EDT Office Visit [facility] [address] [place] [address] [place] [address] Bishop Turcios MD [address] [facility] 110 [place] [address] 02/13/2025 1:40 PM EDT Office Visit [facility] [address] [place] [address] Kathrine Slater, PA [address] [place] [address] documented as of this encounter Visit Diagnoses Not on filedocumented in this encounter Additional Health Concerns Assessment Noted Time PHQ-9 Depression Total Score: 0 01/07/20 23 11:00 AM EDT documented as of this encounter Care Teams Ring Sewer Relationship Specialty Start Date End Date Bishop Turcios MD [address] [facility] 110 [place] [address] PCP - Mk CAMILO 04/26/21 Bishop Turcios MD [address] [facility] 110 [place] [address] PCP - General Internal Medicine 09/01/22 Katie Villegas LPN 07/17/24 documented as of this encounter
--- OUTSIDE RECORDS SUMMARY | 2024-09-29 14:19 | XMS_ITS | Encounter Summary ---
Author Organization [facility] Address [address] [place] [address] Care Team Providers Care Esthetician/Skin Therapist Name Role Phone Bishop Turcios MD Unavailable [phone] Bishop Turcios MD Primary Care Provider [phone] Katie Villegas LPN Unavailable Unavailable Encounter Details Date Type Department Care Team ([facility] st Contact Info) Description 09/21/2024 Bamboo flowsheet [facility] 112 [facility] 120 [place] [address] Bry Valentine, DPMarito 3006 [facility] 5 [place] [address] Social History Tobacco Use Types Packs/Day Years [...] and Family Not on file 07/17/2024 Attends Adventist Services Not on file 07/17 Active Member [...] Visit [facility] [address] [facility] 110 [place] [address] Kesha Rojo PA [address] [facility] 110 [place] [address] 01/15/2025 1:00 PM EDT Office Visit [facility] [address] [facility] 110 [place] [address] Bishop Turcios MD [address] [facility] 110 [place] [address] 02/13/2025 1:40 PM EDT Office Visit [facility] [address] [place] [address] Kathrine Slater PA [address] [place] [address] documented as of this encounter Visit Diagnoses Not on filedocumented in this encounter Additional Health Concerns Assessment Noted Time PHQ-9 Depression Total Score: 0 01/07/20 23 11:00 AM EDT documented as of this encounter Care Teams Esthetician/Skin Therapist Relationship Specialty Start Date End Date Bishop Turcios MD [address] [facility] 110 [place] [address] PCP - Mk CAMILO 04/26/21 Bishop Turcios MD [address] [facility] 110 [place] [address] PCP - General Internal Medicine 09/01/22 Katie Villegas LPN 07/17/24 documented as of this encounter
--- OUTSIDE RECORDS SUMMARY | 2024-09-29 14:19 | XMS_ITS | Encounter Summary ---
Author Organization [facility] Address [address] [place] [address] Care Team Providers Care Stitcher Special Machine Name Role Phone Bishop Turcios MD Unavailable [phone] Bishop Turcios MD Primary Care Provider [phone] Katie Villegas LPN Unavailable Unavailable Encounter Details Date Type Department Care Team ([facility] Contact Info) Description 09/29/2024 Telephone [facility] [address] [facility] [address] [place] [address] Tovo Brittni Harrell LPN Social History Tobacco Use Types Packs/Day Years [...] and Family Not on file 07/17/2024 Attends [employer] Services Not on file 07/17 Active Member [...] as of this encounter Miscellaneous Notes * Telephone Encounter - Josi Mancera LPN - 09/29/2024 10:28 AM EDT Attempted to call franco Pearce. * Telephone Encounter - Brittni Harrell LPN - 09/29/2024 10:08 AM EDT Patient was schedule for an excision to remove BCC today. Patient has a fever and will need to reschedule. Please call patient to reschedule his excision. Cancelled at this time. Thank you documented in this encounter Plan of Treatment Upcoming Encounters Date Type Department Care Team (Late st Contact Info) Description 10/03/2024 2:30 PM EDT Office Visit [facility] 112 [facility] 110 [place] [address] Kesha Rojo PA [address] [place] [facility] 110 [place] [address] 01/15/2025 1:00 PM EDT Office Visit [facility] 112 [facility] 110 [place] [address] Bishop Turcios MD [address] [facility] 110 [place] [address] 02/13/2025 1:40 PM EDT Office Visit [facility] [address] [place] [phone] Kathrine Slater, PA [address] [place] [address] documented as of this encounter Visit Diagnoses Not on filedocumented in this encounter Additional Health Concerns Assessment Noted Time PHQ-9 Depression Total Score: 0 01/07/20 23 11:00 AM EDT documented as of this encounter Care Teams Stitcher Special Machine Relationship Specialty Start Date End Date Bishop Turcios MD [address] [facility] 110 [place] [address] PCP - Mk CAMILO 04/26/21 Bishop Turcios MD [address] [facility] 110 [place] [address] PCP - General Internal Medicine 09/01/22 Katie Villegas LPN 07/17/24 documented as of this encounter
--- OUTSIDE RECORDS SUMMARY | 2024-09-29 14:19 | XMS_ITS | Encounter Summary ---
Author Organization [facility] Address [address] [place] [address] Care Team Providers Care Abrasive Grinder Name Role Phone Bishop Turcios MD Unavailable [phone] Bishop Turcios MD Primary Care Provider [phone] Rachel Mukherjee PRESS ASSISTANT Unavailable [phone] Katie Villeags LPN Unavailable Unavailable Encounter Details Date Type Department Care Team ([facility] Contact Info) Description 01/25/2023 Abstract [facility] 112 [facility] 110 [place] [address] Bishop Turcios MD 112 [facility] 110 [place], [place] [id number] Social History Tobacco Use Types Packs/Day Years Used Date Smoking Tobacco: Never Smokeless Tobacco: Never Alcohol Use Standard Drinks/Week Comments Not Currently 0 (1 standard drink = 0.6 oz pur e alcohol) PHQ-2 Answer Date Recorded Patient Health Questionnaire-2 Score 0 01/06/2023 Sex and Gender Information Value Date Recorded Sex Assigned at Not on file Legal Sex Male 8:05 PM EDT Gender Identity Not on file Sexual Orientation Not on file documented as of this encounter Plan of Treatment Upcoming Encounters Date Type Department Care Team ([facility] Contact Info) Description 10/03/2024 2:30 PM EDT Office Visit [facility] 112 [facility] 110 [place] [address] Kesha Rojo PA 112 [facility] 110 [place], [place] [address] 01/15/2025 1:00 PM EDT Office Visit [facility] [address] [facility] 110 [place] [address] Bishop Turcios MD [address] [facility] 110 [place] [address] 02/13/2025 1:40 PM EDT Office Visit [facility] [address] [place] [address] Kathrine Slater, PA [address] [place] [address] documented as of this encounter Visit Diagnoses Not on filedocumented in this encounter Additional Health Concerns Assessment Noted Time PHQ-9 Depression Total Score: 0 01/07/20 23 11:00 AM EDT documented as of this encounter Care Teams Abrasive Grinder Relationship Specialty Start Date End Date Bishop Turcios MD [address] [facility] 110 [place] [address] PCP - Mk CAMILO 04/26/21 Bishop Turcios MD [address] [facility] 110 [place] [address] PCP - General Internal Medicine 09/01/22 Rachel Mukherjee LSW Employment Counselor Family Medicine 07/10/24 07/17/24 Katie Villegas LPN 07/17/24 documented as of this encounter
--- OUTSIDE RECORDS SUMMARY | 2024-09-29 14:19 | XMS_ITS ---
Author Organization [facility] Address [address] [place] [address] Care Team Providers Care Truck Guard Name Role Phone Bishop Turcios MD Unavailable [phone] Bishop Turcios MD Primary Care Provider [phone] Katie Villegas LPN Unavailable Unavailable Chronic Care Management (CCM) Status:Enrolled (Active) Start date:07/10/2024 Enrollment date:07/17/2024 Enrollment reason:Identified as high-risk Overview 07/17/24, 10:41 AM - ARVIND Calvin- Patient gives verbal consent to be enrolled in CCM Program and understands there could be a bill for this service. Case Team Name Relationship Phone Katie Villegas LPN(Responsible Staff) Continued Care and Services Coordination
--- OUTSIDE RECORDS SUMMARY | 2024-09-29 14:19 | XMS_ITS | Encounter Summary ---
Author Organization [facility] Address [address] [place] [address] Care Team Providers Care Exterminator Helper Name Role Phone Bishop Turcios MD Unavailable [phone] Bishop Turcios MD Primary Care Provider [phone] Rachel Mukherjee DOUBLER HELPER Unavailable [phone] Katie Villegas LPN Unavailable Unavailable Encounter Details Date Type Department Care Team ([facility] Contact Info) Description 01/07/2023 Abstract [facility] 112 [facility] 110 [place] [address] Bishop Turcios MD 112 [facility] 110 [place], [place] [address] Social History Tobacco Use Types Packs/Day Years [...] Upcoming Encounters Date Type Department Care Team ([facility] Contact Info) Description 10/03/2024 2:30 PM EDT Office Visit [facility] 112 [facility] 110 [place] [address] Kesha Rojo PA 112 [facility] 110 [place], [place] [address] 01/15/2025 1:00 PM EDT Office Visit [facility] [address] [facility] 110 [place] [address] Bishop Turcios MD [address] [facility] 110 [place] [address] 02/13/2025 1:40 PM EDT Office Visit [facility] [address] [place] [address] Kathrine Slater, PA [address] [place] [address] [place] [address] documented as of this encounter Visit Diagnoses Not on filedocumented in this encounter Additional Health Concerns Assessment Noted Time PHQ-9 Depression Total Score: 0 01/07/20 23 11:00 AM EDT documented as of this encounter Care Teams Exterminator Helper Relationship Specialty Start Date End Date Bishop Turcios MD [address] [facility] [address] [place] [address] PCP - Mk CAMILO 04/26/21 Bishop Turcios MD [address] [facility] [address] [place] [address] PCP - General Internal Medicine 09/01/22 Rachel Mukherjee LSW Sanding Machine Tender Family Medicine 07/10/24 07/17/24 Katie Villegas LPN 07/17/24 documented as of this encounter
--- OUTSIDE RECORDS SUMMARY | 2024-09-29 14:19 | XMS_ITS | Encounter Summary ---
Author Organization [facility] Address [address] [place] [address] Care Team Providers Care Manager Aviation Name Role Phone Bishop Turcios MD Unavailable [phone] Bishop Turcios MD Primary Care Provider [phone] Katie Villegas LPN Unavailable Unavailable Encounter Details Date Type Department Care Team (Latest Contact Info) Description 09/21/2024 Travel Social History Tobacco Use Types Packs/Day Years [...] and Family Not on file 07/17/2024 Attends Mosque Services Not on file 07/17 Active Member [...] Visit [facility] [address] [facility] 110 [place] [address] Kesha Rojo PA [address] [facility] 110 [place] [address] 01/15/2025 1:00 PM EDT Office Visit [facility] [address] [facility] 110 [place] [address] Bishop Turcios MD [address] [facility] 110 [place] [address] 02/13/2025 1:40 PM EDT Office Visit [facility] [address] [place] [address] Kathrine Slater PA [address] [place] [address] documented as of this encounter Visit Diagnoses Not on filedocumented in this encounter Additional Health Concerns Assessment Noted Time PHQ-9 Depression Total Score: 0 01/07/20 23 11:00 AM EDT documented as of this encounter Care Teams Manager Aviation Relationship Specialty Start Date End Date Bishop Turcios MD [address] [facility] 110 [place] [address] PCP - Mk CAMILO 04/26/21 Bishop Turcios MD 112 [place] [address] PCP - General Internal Medicine 09/01/22 Katie Villegas LPN 07/17/24 documented as of this encounter
--- OUTSIDE RECORDS SUMMARY | 2024-09-29 14:19 | XMS_ITS | Patient Health Record ---
Author Organization [facility] Address [address] [place], [place] [id number] Care Team Providers Care Registry Rn Name Role Phone Julissa Warren Unavailable [phone] Edith Sultana Unavailable [phone] Allergies Allergen (clinical drug ingredient) Drug/Non Drug Allergy documented on EMR Reaction Allergy Type Onset Date Status ibuprofen Advil Unknown Drug Allergy Active Penicillin Unknown Drug Allergy Active Reason For Referral No Information Medications Medication SIG (Take, Route, Frequency, Duration) Notes Start Date End Date Status Aspirin 81 Active Calcium Citrate Acti ve Ferrous Sulfate Acti ve Latanoprost 0.005 % INSTILL 1 DROP INTO EACH EYE AT BEDTIME Ophthalmic for 22 Days Active Levothyroxine Sodium 137 MCG Oral for 100 Days Active Latanoprost 0.005 % Ophthalmic for 75 Days Active Levothyroxine Sodium Active Omeprazole 40 MG TAKE 1 CAPSULE BY MO [facility] ONCE DAILY Oral for 30 Days Active Social History Sex Assigned At : Social History Observation Description Sex Assigned At Male Vital Signs Heart Rate 72 /min 09/13/2024 Blood pressure diastolic 63 mm Hg 09/13/2024 Weight-kg 83.92 kg 06/28/2024 Height 69 in 09/13/2024 Blood pressure systolic 126 mm Hg 09/13/2024 Weight 185 lbs 06/28/2024 BMI 27.32 kg/m2 06/28/2024 Encounters Encounter Location Date Provider Diagnosis [facility] [address] [place], [place] [id number] 03/13/2024 Edith Sultana Encounter for scre ening for dental disorders Z13.84 ; Encounter for dental examination and cleaning without abnormal findings Z01.20 ; Encounter for dental examination and cleaning with abnormal findings Z01.21 and Dental caries into dentine K02.62 [facility] [address] [place], [place] [id number] 06/28/2024 Julissa Warren Dental caries K02. 9 and Encounter for screening for dental disorders Z13.84 [facility] [address] [place], [place] [id number] 09/13/2024 Julissa Warren Encounter for dent al examination and cleaning with abnormal findings Z01.21 and Necrosis of pulp K04.1 Assessments Encounter Date Diagnosis (ICD Code) Assessment Notes Treatment Notes Treatment Clinical Notes Section Notes 06/28/2024 Dental caries (ICD-10 - K02.9) 09/13/2024 Encounter for dental examination and cleaning with abnormal findings (ICD-10 - Z01.21) 03/13/2024 Encounter for screening for dental disorders (ICD-10 - Z13.84) 03/13/2024 Encounter for dental examination and cleaning without abnormal findings (ICD-10 - Z01.20) 09/13/2024 Necrosis of pulp (ICD-10 - K04.1) 06/28/2024 Encounter for screening for dental disorders (ICD-10 - Z13.84) 03/13/2024 Encounter for dental examination and cleaning with abnormal findings (ICD-10 - Z01.21) 03/13/2024 Dental caries into dentine (ICD-10 - K02.62) Plan Of Treatment Next Appt Details Provider Name:Julissa Warren , 04/03/2025 02:30:00 PM, [facility] [place], [place], [id number], Insurance Providers Payer Name Payer Address Payer Phone Subscriber Number Group Number Insured Name Patient Relationship to Insured Coverage Start Date Coverage End Date [employer] [address] [address] [place] [address] [id number] Lennox Brooks Self - patient is the insured 1 [employer] [address] [address] [place] [address] [id number] Lennox Boroks Self - patient is the insured 3 Medical (General) History Medical History History ICD Code hyperthyroidism
--- OUTSIDE RECORDS SUMMARY | 2024-09-29 14:19 | XMS_ITS | Clinical Summary ---
Author Organization [facility] Address [address] [place] [address] Care Team Providers Care Retail Attendant Name Role Phone Bishop Turcios MD Unavailable [phone] Bishop Turcios MD Primary Care Provider [phone] Katie Villegas LPN Unavailable Unavailable Allergies Active Allergy Reactions Criticality Noted Date Comments Bee Venom 2018 Meloxicam Hives 12/16/2022 Naproxen Hives 12/16/2022 Penicillin G Hives,Unknown 12/16/2022 Penicillins Swelling 05/23/2024 Per pt his fingers swell Medications aspirin 81 MG EC tablet Take 1 tablet by mouth 1 (one) time each day at the same time. Active Calcium Carbonate-Vit D-Min (Calcium 600+D3 Plus Minerals) 600-800 MG-UNIT tablet Take 1 tablet by mouth 1 (one) time each day at the same time. Active Multiple Vitamin (MULTIVITAMINS PO) Take 1 tablet by mouth 1 (one) time each day. Active cyanocobalamin (Vitamin B-12) 100 MCG tablet Take 1 tablet by mouth 1 (one) time each day at the same time. Active Docusate Sodium (DSS) 100 MG capsule Take 1 capsule by mouth Daily as needed. Active ferrous sulfate 325 (65 Fe) MG tablet Take 1 tablet by mouth 1 (one) time each day at the same time. Active latanoprost (Xalatan) 0.005 % ophthalmic solution Administer 1 drop into both eyes in the morning. 3 Active melatonin 5 MG tablet Take 1 tablet by mouth 1 (one) time each day at the same time PRN Active levothyroxine (Synthroid, Levoxyl) 137 MCG tabletIndication s:Hypothyroidism (acquired) (CMS/HCC) TAKE 1 TABLET BY MOUTH ONCE DAILY IN THE MORNING BEFORE MEAL(S) 100 tablet 1 5 Active omeprazole (PriLOSEC) [address] capsuleIndicatio ns:Gastroesophag eal reflux disease without esophagitis Take 1 capsule (40 mg) by mouth in the morning. Take before meals. Do not crush or chew.. 90 capsule 3 5 07/11/19 26 Active diphenhydrAMINE (Sominex) 25 MG tablet Take 25 mg by mouth at bedtime Takes for sleep Active tiZANidine (Zanaflex) 4 MG tabletIndication s:Neck muscle spasm Take 1 tablet (4 mg) by mouth every 12 (twelve) hours if needed for muscle spasms for up to 10 days 20 tablet 5 Active doxycycline (Vibramycin) 100 MG capsuleIndicatio ns:Cellulitis of right hand Take 1 capsule (100 mg) by mouth in the morning and 1 capsule (100 mg) before bedtime. Do all this for 7 days. Take with at least 8 ounces (large glass) of water, do not lie down for 30 minutes after. 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 12/16/2022 Encounters Date Type Department Care Team Description 09/29/2024 Telephone [facility] [address] [place] [address] Brittni Roth LPN 09/21/2024 1:00 PM EDT Office Visit [facility] [address] [place] [address] Bry Valentine, BANDAR Verruca plantaris (Primary Dx); Foot pain, left 09/21/2024 Bamboo flowsheet [facility] [address] [place] [address] Bry Valentine DPM 09/21/2024 Travel 09/07/2024 3:30 PM EDT Office Visit [facility] [address] [place] [address] Kesha Rojo PA Cellulitis of right hand (Primary Dx) 09/07/2024 2:40 PM EDT Office Visit [facility] [address] [place] [address] Bry Valentine, BANDAR Verruca plantaris (Primary Dx); Foot pain, left 09/07/2024 Bamboo flowsheet [facility] [address] [place] [address] Bry Valentine DPM 09/07/2024 Travel 2024 Refill [facility] [address] [place] [address] Maribel Fuentes MA Neck muscle spasm 08/28/2024 Results Follow-Up [facility] [address] [place] [address] Kathrine Slater PA 08/23/2024 2:00 PM EDT Office Visit [facility] [address] [place] [address] Kathrine Slater PA Melanocytic nevus of trunk (Primary Dx); Actinic keratosis; Lentigines; History of basal cell carcinoma; Neoplasm of unspecified behavior of bone, soft tissue, and skin; Seborrheic keratosis 08/23/2024 Bamboo flowsheet [facility] [address] [place] [address] Kathrine Slater PA 08/23/2024 Travel 08/17/2024 2:30 PM EDT Office Visit [facility] [address] [facility] [address] [place] [address] Kesha Rojo PA Arthralgia of left temporomandibular joint (Primary Dx); Neck muscle spasm 08/17/2024 1:50 PM EDT Office Visit [facility] [address] [facility] [address] [place] [address] Bry Valentine, DPM Verruca plantaris (Primary Dx); Foot pain, left 08/17/2024 Bamboo flowsheet [facility] [address] [facility] [address] [place] [address] Bry Valentine, DPM 08/17/2024 Travel 08/14/2024 Patient Outreach [facility] [address] [place] [address] Katie Villegas LPN 08/03/2024 2:00 PM EDT Office Visit [facility] [address] [facility] [address] [place] [address] Bry Valentine, DPM Neoplasm of uncertain behavior of skin (Primary Dx); Verruca plantaris; Foot pain, left 08/03/2024 Travel 08/03/2024 Orders Only [facility] [address] [facility] [address] [place] [address] Kesha Rojo PA Microcytic anemia 07/20/2024 Abstract [facility] [address] [facility] [address] [place] [address] Bishop Turcios MD 07/19/2024 Abstract [facility] [address] [facility] [address] [place] [address] Bishop Turcios MD 07/17/2024 Patient Outreach [facility] [address] [place] [address] Katie Villegas LPN 07/17/2024 Patient Outreach [facility] [address] [place] [address] Rachel MukherjeeARVIND 07/10/2024 1:00 PM EDT Office Visit [facility] [address] [facility] [address] [place] [address] Bishop Turcios MD Routine general medical examination at health care facility (Primary Dx); ACP (advance care planning); Gastroesophageal reflux disease without esophagitis; IGT (impaired glucose tolerance); Hypothyroidism (acquired) ([facility]); Primary osteoarthritis of both knees; Microcytic anemia; Plantar wart of left foot; Bunion of great toe of left foot 07/10/2024 Abstract [facility] [address] [facility] [address] [place] [address] Bishop Turcios MD 07/10/2024 Travel from Last 3 Months Immunizations Immunization Administration Dates Next Due Influenza, High Dose Seasona l, Preservative Free 02/08/2019,01/24/2018,12/28/2016 Influenza, High-dose Seasona l, Quadrivalent, Preservative Free 02/11/2022,01/29/2021 Influenza, recombinant, quad rivalent, injectable, preservative free 01/26/2020 Influenza, seasonal, injectable 01/03/2024,01/22 Pfizer Cardona Cap SARS-CoV-2 Vaccination Pneumococcal Conjugate PCV 13 12/23/2018 Pneumococcal Polysaccharide PPSV23 01/05/2022, RSV-MAb 01/11/2024 Tdap 01/05/2022 Zoster, Recombinant 07/25/2020,05/12/2020 Zoster, live 11/25/2015 Family History Medical History Relation Name Comments Heart disease Father Heart disease Mother Relation Name Status Comments Father Mother Social History Tobacco Use Types Packs/Day Years [...] and Family Not on file 07/17/2024 Attends [employer] Not on file 07/17 Active Member [...] Sign Reading Time Taken Comments Blood Pressure 124/72 09/07/2024 3:22 PM EDT Pulse 72 09/07/2024 3:22 PM EDT Temperature 37.2 C (99 F) 09/07/2024 3:22 PM EDT Respiratory Rate 16 09/21/2024 1:03 PM EDT Oxygen Saturation 96% 09/07/2024 3:22 PM EDT Inhaled Oxygen Concentration - - Weight 78.9 kg (174 lb) 09/21/2024 1:03 PM EDT Height 172.7 cm (5' 8 ) 09/21/2024 1:03 PM EDT Body Mass Index 26.46 09/21/2024 1:03 PM EDT Plan of Treatment Upcoming Encounters Date Type Department Care Team (Late st Contact Info) Description 10/03/2024 2:30 PM EDT Office Visit [facility] [address] [facility] [address] [place] [address] Kesha Rojo PA [address] [facility] [address] [place] [address] 01/15/2025 1:00 PM EDT Office Visit [facility] [address] [facility] [address] [place] [address] Bishop Turcios MD [address] [facility] [address] [place] [address] 02/13/2025 1:40 PM EDT Office Visit [facility] [address] [place] [address] Kathrine Slater PA [address] [place] [address] Health Maintenance Due Date Last Done Comments Medicare Annual Wellness (AWV) 07/10/2025 0 07/10/2024, 01/10/2024, 01/06/2023 Pneumococcal Vaccine: 65+ Years Completed 01/05/2022, 12/23/2018, 12/25/2009 Influenza Vaccine Completed 01/03/2024, , 02/11/2022, Additional history exists Procedures Procedure Name Priority Date/Time Associated Diagnosis Comments SKIN / NAIL BIOPSY Routine 08/23/2024 2: 02 PM EDT Neoplasm of unspecified behavior of bone, soft tissue, and skin CRYOTHERAPY SKIN LESION Routine 08/24/19 2:00 PM EDT Actinic keratosis DERMATOPATHOLOGY EXAM Routine 08/23/2024 12:00 AM EDT Neoplasm of unspecified behavior of bone, soft tissue, and skin from Last 3 Months Results * Lesion biopsy (08/23/2024 2:02 PM EDT) Narrative Valerie Sprague MA - 08/23/2024 2:02 PM EDT Type of biopsy: tangential Informed consent: discussed [...] Dressing type: bandage Additional details: Photo taken Amount of lidocaine used: 1.0 cc Kathrine [facility] PROCEDURE ORDERABLES Fin al Result * Cryotherapy, skin lesion (08/23/2024 2:00 PM EDT) Kathrine [facility]ACOBS[facility] DERM PROCEDURE ORDERABLES Fin al Result * Dermatopathology exam (08/23/2024 12:00 AM EDT) SPECIMEN TYPE ------ SPECIMEN: RT CHEST ------ [facility] ICD10 Code C44.519 [facility] PROTOCOL F - FLAT [facility] Final Diagnosis NODULAR BASAL CELL CARCINOMA (SEE COMMENT). COMMENT: The tumor is transected across the base. [facility] Gross Text [facility] Microscopic Description Microscopic examination performed. [facility] CPT 04603*1 [facility] Skin Topography unknown / Unknown 08/23/2024 2:02 PM EDT Comment:Differential Diagnos is: BCC Check Margins: No Size of lesion: 0.9 x 0.7 cm Kathrine [facility] PATHOLOGY ORDERABLES Kandis cooper Result [facility] from Last 3 Months Insurance [employer] Care Teams Retail Attendant Relationship Specialty Start Date End Date Bishop Turcios MD [address] [address] PCP - Mk CAMILO 04/26/21 Bishop Turcios MD [address] [address] PCP - General Internal Medicine 09/01/22 Katie Villegas LPN 07/17/24
--- OUTSIDE RECORDS SUMMARY | 2024-09-29 14:19 | XMS_ITS | Encounter Summary ---
Author Organization [facility] Address [address] [place] [address] Care Team Providers Care Client Care Consultant Name Role Phone Bishop Turcios MD Unavailable [phone] Bishop Turcios MD Primary Care Provider [phone] Rachel Mukherjee SOLVENT STATION ATTENDANT Unavailable [phone] Katie Villegas LPN Unavailable Unavailable Encounter Details Date Type Department Care Team ([facility] Contact Info) Description 01/12/2024 Abstract [facility] [address] [facility] [address] [place] [address] Bishop Turcios MD 112 [facility] 110 [place], [place] [id number] Social History Tobacco Use Types Packs/Day Years [...] Upcoming Encounters Date Type Department Care Team ([facility] Contact Info) Description 10/03/2024 2:30 PM EDT Office Visit [facility] [address] [facility] [address] [place] [address] Kesha Rojo PA 112 [facility] 110 [place], [place] [address] 01/15/2025 1:00 PM EDT Office Visit [facility] [address] [facility] [address] [place] [address] Bishop Turcios MD [address] [facility] [address] [place] [address] 02/13/2025 1:40 PM EDT Office Visit [facility] [address] [place] [address] Kathrine Slater, PA [address] [place] [address] documented as of this encounter Visit Diagnoses Not on filedocumented in this encounter Additional Health Concerns Assessment Noted Time PHQ-9 Depression Total Score: 0 01/07/20 23 11:00 AM EDT documented as of this encounter Care Teams Client Care Consultant Relationship Specialty Start Date End Date Bishop Turcios MD [address] [facility] [address] [place] [address] PCP - Mk CAMILO 04/26/21 Bishop Turcios MD [address] [facility] [address] [place] [address] PCP - General Internal Medicine 09/01/22 Rachel Mukherjee LSW Finish Machine Tender Family Medicine 07/10/24 07/17/24 Katie Villegas LPN 07/17/24 documented as of this encounter
--- OUTSIDE RECORDS SUMMARY | 2024-09-29 14:19 | XMS_ITS | Clinical Summary ---
Author Organization [facility] Address [id number] [address] [place] [address] Care Team Providers Care Set Staff Fitter Name Role Phone Bishop Turcios MD Primary Care Provider [phone] Allergies Active Allergy Reactions Criticality Noted Date Comments Naproxen Sodium Swelling 09/16/2016 Bee Venom Protein (Honey Bee) 2018 Meloxicam Swelling 09/16/2016 Penicillins Rash Low 09/16/2016 Medications levothyroxine sodium (TIROSINT) 150 mcg capsuleIndicatio ns:hypothyroidis m Take 150 mcg by mouth daily Indications: HYPOTHYROIDI SM. Active aspirin 81 mg Take 81 mg by mouth daily. Active omega-3 fatty acids-fish oil (FISH OIL) 300-1,000 mg capsuleIndicatio ns:hypertriglyce ridemia Take 1 g by mouth daily Indications: Hypertriglyc eridemia. Active omeprazole (PriLOSEC) 40 mg capsuleIndicatio ns:Reflux esophagitis Take 1 capsule (40 mg total) by mouth daily. 90 capsule 1 09/17/2016 Active spgpdnhu-tmtw-IW -calcium &mins (THERAGRAN-M) 9 mg iron-400 mcg tablet Take 1 tablet by mouth daily. Active ferrous gluconate (FERGON) 324 mg tablet Take 324 mg by mouth daily with breakfast. Active docusate sodium (COLACE) 100 mg capsule Take 100 mg by mouth daily. Active calcium citrate (CALCITRATE) 200 mg (950 mg) tablet Take 1 tablet by mouth daily. Active diphenhydrAMINE (SOMINEX) 25 mg tablet Take 25 mg by mouth nightly as needed for sleep. Active melatonin (CIRCADIN) 5 mg tablet Take 5 mg by mouth nightly. Active acetaminophen (TYLENOL) 650 mg 8 hr tablet Take 650 mg by mouth every 8 (eight) hours as needed for pain. Active Active Problems Problem Noted Date Diagnosed Date Diabetes mellitus 09/17/2016 Hypothyroidism 09/17/2016 Family History Medical History Relation Name Comments Heart disease Brother Heart disease Father No Known Problems Mother Relation Name Status Comments Brother Father Mother Social History Tobacco Use Types Packs/Day Years Used Date Smoking Tobacco: Former Cigarettes Q uit: 04/26/1981 Smokeless Tobacco: Never Alcohol Use Standard Drinks/Week Comments No 0 (1 standard drink = 0.6 oz pur e alcohol) Childcare Answer Date Recorded Childcare Unknown 10/05/2018 Employment Answer Date Recorded Employment Unknown 10/05/2018 Purpose - Life Answer Date Recorded Purpose and direction in life Unknown Sex and Gender Information Value Date Recorded Sex Assigned at Not on file Legal Sex Male 11:34 AM EDT Gender Identity Not on file Sexual Orientation Not on file Last Filed Vital Signs Vital Sign Reading Time Taken Comments Blood Pressure 123/70 09/13/2018 10:30 AM EDT Pulse 56 09/13/2018 10:30 AM EDT Temperature 36.8 C (98.2 F) 09/13/2018 7:32 AM EDT Respiratory Rate 16 09/13/2018 7:32 AM EDT Oxygen Saturation 94% 09/13/2018 10:30 AM EDT Inhaled Oxygen Concentration - - Weight 90.7 kg (200 lb) 09/13/2018 7:32 AM EDT Height 175.3 cm (5' 9 ) 09/13/2018 7:32 AM EDT Body Mass Index 29.53 09/13/2018 7:32 AM EDT Plan of Treatment Health Maintenance Due Date Last Done Comments Depression Screening 1952 Tobacco Screening 1952 DTaP,Tdap and Td Vaccines (1 - Tdap) 1961 Zoster (Shingles) Vaccine (1 of 2) 1992 Abdominal Aortic Aneurysm (AAA) Screen 08/31/2007 Fall Risk Screening 08/31/2007 Influenza Vaccine 12/25/2024 Medical Devices Not on file Insurance [facility] MEDICARE Care Teams Set Staff Fitter Relationship Specialty Start Date End Date Bishop Turcios MD [facility] [place] [address] PCP - General Internal Medicine 08/30/18
--- NOTE | 2024-09-29 14:25 | XR_ITS ---
[facility] [id number] Patient Name: VALENCIA MAGANA MRN: [id number] date: 1940 Sex: M Assigned Patient Location: ER Current Patient Location: ER Accession/Order Number: [id number] Exam Date: 09/29/2024 15:09 Report Date: 09/29/2024 15:09 At the request of: MIRELLA DONIS NP Procedure: XR chest 2V Plain film chest 2 view HISTORY: Acute fever recent biliary stent removal COMPARISON: None FINDINGS: SUPPORT DEVICES: None POSTSURGICAL CHANGES: None HEART: Within normal limits PULMONARY ISAAC: Within normal limits MEDIASTINUM: Unremarkable LUNGS AND PLEURA: No acute lung process, pleural effusion or pneumothorax identified. BONY STRUCTURES: Old left clavicle fracture ADDITIONAL FINDINGS None XR/XR chest 2V IMPRESSION: No acute process. Impression dictated by: Alcon Heredia M.D. 09/29/2024 3:09 PM Dictation Location: [email or web address] Electronically authenticated by: [id number] Date: 09/29/2024 15:09
--- NOTE | 2024-09-29 14:29 | ED.GENADUL1 ---
Documented by User: Neel Mg NP 09/29/24 17:00 HPI HPI - General Adult General Chief complaint: Fever Stated complaint: FEVER AFTER SURGERY TWO DAYS AGO Time Seen by Provider: 09/29/24 14:15 Source: patient Mode of arrival: walk-in History of Present Illness HPI narrative: The patient is an 84-year-old male who presents to the emergency department today for evaluation concerns for a fever yesterday of 100F. Is here with his , endorses he had a biliary stent removed at the [facility] 2 days ago. She reports he had a cholecystectomy and a subsequent stent placed at the [facility] in April 2024. reports following the procedure the next day the patient did have some chills and bodyaches and noted temperature of 100 F. Does take Tylenol arthritis and did take a dose around 10 AM today. She reports his temperature has been 99F. He also reports feeling well today. states they spoke with a nurse at the [facility], advised to come to the ER for further evaluation. Patient denies any chest pain, shortness of breath. No cough/cold symptoms. He denies any abdominal pain or nausea/vomiting/diarrhea. No urinary symptoms or back/flank pain. Related Data Home Medications ?Medication ?Instructions ?Recorded ?Confirmed latanoprost 0.005 % eye drops 1 drp ophthalmic (eye) DAILY 05/21/24 09/29/24 levothyroxine 137 mcg tablet 137 mcg PO DAILY 05/21/24 09/29/24 omeprazole 40 mg capsule,delayed 40 mg PO DAILY 05/21/24 09/29/24 release Allergies Allergy/AdvReac Type Severity Reaction Status Date / Time naproxen Allergy Mild swelling Verified 05/26/24 13:32 Penicillins Allergy Mild Rash Verified 05/26/24 13:32 Opioid HPI Opioid Management Most Recent Opioid Data: Last Pain Scale 8 05/21/24, 08:35 Review of Systems ROS Status of ROS 10 or more systems reviewed and unremarkable except as noted in history and below PFSH PFSH Social History Little interest or pleasure in doing things: not at all Feeling down, depressed, or hopeless: not at all Exam Narrative Exam Narrative: Constituational: Awake/ alert, no apparent distress, well hydrated HENMT: normocephalic, external ears normal, moist oral mucous membranes and oropharynx normal Eyes: EOMI and conjunctivae normal Neck: ROM intact Chest: inspection of chest normal Respiratory: Normal respiratory effort, clear to auscultation bilaterally Cardio: regular rate and regular rhythm GI: soft to palpation and non-tender Back: nontender MSK: ROM intact, +NVI Skin: no rashes or petechiae Neuro: no focal deficits Psych: mental status grossly normal Constitutional Vital Signs, click to edit/add: Last Vital Signs Temp 98.0 F 09/29/24 15:47 Pulse 78 09/29/24 15:47 Resp 16 09/29/24 15:47 BP 121/58 09/29/24 14:17 Pulse Ox 98 09/29/24 15:47 O2 Del Method Room Air 09/29/24 14:17 Course Vital Signs Vital signs: Vital Signs Temperature 98.6 F 09/29/24 14:17 Pulse Rate 75 09/29/24 14:17 Respiratory Rate 20 09/29/24 14:17 Blood Pressure 121/58 09/29/24 14:17 Pulse Oximetry 98 09/29/24 14:17 Oxygen Delivery Method Room Air 09/29/24 14:17 Temperature 98.0 F 09/29/24 15:47 Pulse Rate 78 09/29/24 15:47 Respiratory Rate 16 09/29/24 15:47 Blood Pressure 121/58 09/29/24 14:17 Pulse Oximetry 98 09/29/24 15:47 Oxygen Delivery Method Room Air 09/29/24 14:17 Medical Decision Making [facility] Narrative Medical decision making narrative: The patient is a nontoxic-appearing 84-year-old male who presented to the emergency department today for evaluation concerns for reported fever yesterday following biliary stent removal 2 days prior. Initial examination vital signs overall stable. No acute abdominal findings on exam. Vital signs otherwise stable and he has been afebrile since yesterday. Blood showed no significant leukocytosis, stable anemia with Hgb 9.1, noted thrombocytopenia with PLT 110. Patient does have history of thrombocytopenia with PLT of 157 back in April 2024. Electrolytes including renal function overall stable. Mildly elevated LFTs with AST 74 and ALT 160 alk phos 244. This additionally is noted in the setting of recent stent removal 2 days prior. Without critical findings and UA is negative for UTI. Discussed these findings with the patient including recommendations for supportive care following 1 febrile episode post procedure/stent removal 2 days prior. Advised on follow-up with patient's black puller/proceduralist for reevaluation. Discussed signs and symptoms of any worsening condition and when to consider reevaluation by the emergency department. Patient and his verbalized an understanding of this and are agreeable with the plan to be discharged home. Medical Records Medical records reviewed: Yes I reviewed the patient's medical records Lab Data Lab results reviewed: Yes I reviewed the patient's lab results Labs: Lab Results 09/29/24 09/29/24 Range/Units 14:39 15:30 WBC 5.3 (4.0-11.0) 10^3/uL RBC 3.93 L (4.70-6.10) 10^6/uL Hgb 9.1 L (14.0-18.0) g/dL Hct 29.1 L (42.0-54.0) % MCV 74.0 L (80.0-94.0) fL MCH 23.2 L (25.9-34.0) pg MCHC 31.3 (29.9-35.2) g/dL RDW 17.0 H (11.0-15.0) % Plt Count 110 L (150-450) 10^3/uL MPV 10.3 (9.5-13.5) fL Seg Neuts % (Manual) 81.0 H (43.0-75.0) Lymphocytes % (Manual) 14.0 L (20.5-60.0) % Monocytes % (Manual) 4.0 (1.7-12.0) % Eosinophils % (Manual) 0.0 L (0.9-7.0) % Basophils % (Manual) 1.0 (0.2-2.0) % Neutrophils # (Manual) 4.29 (1.4-6.5) 10^3/uL Lymphocytes # (Manual) 0.74 L (1.20-3.80) 10^3/uL Monocytes # (Manual) 0.21 L (0.30-0.80) 10^3/uL Eosinophils # (Manual) 0.00 (0.00-0.70) 10^3/uL Basophils # (Manual) 0.05 (0.00-0.10) 10^3/uL Sodium 131 L (136-145) mmol/L Potassium 3.5 (3.5-5.1) mmol/L Chloride 96 L (98-107) mmol/L Carbon Dioxide 25.4 (21.0-32.0) mmol/L Anion Gap 13.1 BUN 16.0 (7.0-18.0) mg/dL Creatinine 0.86 (0.70-1.30) mg/dL Est GFR ( Amer) >60 (>=60 mL/min/1.73m^2) Est GFR (Non-Af Amer) >60 (>=60 mL/min/1.73m^2) BUN/Creatinine Ratio 18.6 Glucose 109 H (74-106) mg/dL Calcium 8.5 (8.5-10.1) mg/dL Total Bilirubin 0.9 (0.2-1.0) mg/dL AST 74 H (15-37) U/L ALT 160 H (16-63) U/L Alkaline Phosphatase 244 H (46-116) U/L Total Protein 6.8 (6.4-8.2) g/dL Albumin 3.0 L (3.4-5.0) g/dL Globulin 3.8 g/dL Albumin/Globulin Ratio 0.8 Urine Color Lt. yellow (YELLOW) Urine Clarity Clear (CLEAR) Urine pH 6.0 (5.0-9.0) Ur Specific [place] <=1.005 A (1.005-1.025) Urine Protein Negative (NEG/TRACE) mg/dL Urine Glucose (UA) Negative (NEGATIVE) mg/dL Urine Ketones Negative (NEGATIVE) mg/dL Urine Occult Blood Negative (NEGATIVE) Urine Nitrite Negative (NEGATIVE) Urine Bilirubin Negative (NEGATIVE) Urine Urobilinogen 1.0 (0.2-1.0) EU/dL Ur Leukocyte Esterase Negative (NEGATIVE) Imaging Data Chest x-ray: Attestation: I have reviewed the pertinent imaging results. Radiologist's impression: ITS Impressions Chest X-Ray 09/29/24 14:25 IMPRESSION: No acute process. Impression dictated by: Alcon Heredia M.D. 09/29/2024 3:09 PM Dictation Location: [place] [id number] Electronically authenticated by: [id number] Y Date: 09/29/2024 15:09 Discharge Plan Discharge Chief Complaint: Fever Clinical Impression: Elevated LFTs, Post-procedural fever Patient Disposition: Home, Self-Care Prescriptions / Home Meds: No Action latanoprost 0.005 % drops 1 drp OPHTHALMIC (EYE) DAILY Rx Instructions: levothyroxine 137 mcg tablet 137 mcg PO DAILY omeprazole 40 mg capsule,delayed release(DR/EC) 40 mg PO DAILY Print Language: Citizen [place] Instructions: Fever in Adults (ED) Additional Instructions: Please follow-up with your specialist at the [facility] for reevaluation as discussed. May return to the ER with any concerns at any time. Referrals: MOISES THOMAS [Primary Care Provider, Internal Medicine] - 1 week Discharge Date/Time: 09/29/24 17:05 Documented by User: Alcon Zamora MD 09/29/24 20:02 HPI HPI - General Adult General Chief complaint: Fever Stated complaint: FEVER AFTER SURGERY TWO DAYS AGO Time Seen by Provider: 09/29/24 14:15 Related Data Home Medications ?Medication ?Instructions ?Recorded ?Confirmed latanoprost 0.005 % eye drops 1 drp ophthalmic (eye) DAILY 05/21/24 09/29/24 levothyroxine 137 mcg tablet 137 mcg PO DAILY 05/21/24 09/29/24 omeprazole 40 mg capsule,delayed 40 mg PO DAILY 05/21/24 09/29/24 release Allergies Allergy/AdvReac Type Severity Reaction Status Date / Time naproxen Allergy Mild swelling Verified 05/26/24 13:32 Penicillins Allergy Mild Rash Verified 05/26/24 13:32 Opioid HPI Opioid Management Most Recent Opioid Data: Last Pain Scale 8 05/21/24, 08:35 PFSH PFSH Social History Little interest or pleasure in doing things: not at all Feeling down, depressed, or hopeless: not at all Exam Constitutional Vital Signs, click to edit/add: Last Vital Signs Temp 98.0 F 09/29/24 15:47 Pulse 78 09/29/24 15:47 Resp 16 09/29/24 15:47 BP 121/58 09/29/24 14:17 Pulse Ox 98 09/29/24 15:47 O2 Del Method Room Air 09/29/24 14:17 Course Vital Signs Vital signs: Vital Signs Temperature 98.6 F 09/29/24 14:17 Pulse Rate 75 09/29/24 14:17 Respiratory Rate 20 09/29/24 14:17 Blood Pressure 121/58 09/29/24 14:17 Pulse Oximetry 98 09/29/24 14:17 Oxygen Delivery Method Room Air 09/29/24 14:17 Temperature 98.0 F 09/29/24 15:47 Pulse Rate 78 09/29/24 15:47 Respiratory Rate 16 09/29/24 15:47 Blood Pressure 121/58 09/29/24 14:17 Pulse Oximetry 98 09/29/24 15:47 Oxygen Delivery Method Room Air 09/29/24 14:17 Medical Decision Making MDM Narrative Medical decision making narrative: The patient is a nontoxic-appearing 84-year-old male who presented to the emergency department today for evaluation concerns for reported fever yesterday following biliary stent removal 2 days prior. Initial examination vital signs overall stable. No acute abdominal findings on exam. Vital signs otherwise stable and he has been afebrile since yesterday. Blood showed no significant leukocytosis, stable anemia with Hgb 9.1, noted thrombocytopenia with PLT 110. Patient does have history of thrombocytopenia with PLT of 157 back in April 2024. Electrolytes including renal function overall stable. Mildly elevated LFTs with AST 74 and ALT 160 alk phos 244. This additionally is noted in the setting of recent stent removal 2 days prior. Without critical findings and UA is negative for UTI. Discussed these findings with the patient including recommendations for supportive care following 1 febrile episode post procedure/stent removal 2 days prior. Advised on follow-up with patient's black puller/proceduralist for reevaluation. Discussed signs and symptoms of any worsening condition and when to consider reevaluation by the emergency department. Patient and his verbalized an understanding of this and are agreeable with the plan to be discharged home. I, Dr Zamora, have reviewed the above progress note and course of action in the ER; agree with the above. I have personally gone over history and physical, and discussed disposition and treatment plan with the PA. Lab Data Labs: Lab Results 09/29/24 09/29/24 Range/Units 14:39 15:30 WBC 5.3 (4.0-11.0) 10^3/uL RBC 3.93 L (4.70-6.10) 10^6/uL Hgb 9.1 L (14.0-18.0) g/dL Hct 29.1 L (42.0-54.0) % MCV 74.0 L (80.0-94.0) fL MCH 23.2 L (25.9-34.0) pg MCHC 31.3 (29.9-35.2) g/dL RDW 17.0 H (11.0-15.0) % Plt Count 110 L (150-450) 10^3/uL MPV 10.3 (9.5-13.5) fL Seg Neuts % (Manual) 81.0 H (43.0-75.0) Lymphocytes % (Manual) 14.0 L (20.5-60.0) % Monocytes % (Manual) 4.0 (1.7-12.0) % Eosinophils % (Manual) 0.0 L (0.9-7.0) % Basophils % (Manual) 1.0 (0.2-2.0) % Neutrophils # (Manual) 4.29 (1.4-6.5) 10^3/uL Lymphocytes # (Manual) 0.74 L (1.20-3.80) 10^3/uL Monocytes # (Manual) 0.21 L (0.30-0.80) 10^3/uL Eosinophils # (Manual) 0.00 (0.00-0.70) 10^3/uL Basophils # (Manual) 0.05 (0.00-0.10) 10^3/uL Sodium 131 L (136-145) mmol/L Potassium 3.5 (3.5-5.1) mmol/L Chloride 96 L (98-107) mmol/L Carbon Dioxide 25.4 (21.0-32.0) mmol/L Anion Gap 13.1 BUN 16.0 (7.0-18.0) mg/dL Creatinine 0.86 (0.70-1.30) mg/dL Est GFR ( Amer) >60 (>=60 mL/min/1.73m^2) Est GFR (Non-Af Amer) >60 (>=60 mL/min/1.73m^2) BUN/Creatinine Ratio 18.6 Glucose 109 H (74-106) mg/dL Calcium 8.5 (8.5-10.1) mg/dL Total Bilirubin 0.9 (0.2-1.0) mg/dL AST 74 H (15-37) U/L ALT 160 H (16-63) U/L Alkaline Phosphatase 244 H (46-116) U/L Total Protein 6.8 (6.4-8.2) g/dL Albumin 3.0 L (3.4-5.0) g/dL Globulin 3.8 g/dL Albumin/Globulin Ratio 0.8 Urine Color Lt. yellow (YELLOW) Urine Clarity Clear (CLEAR) Urine pH 6.0 (5.0-9.0) Ur Specific [place] <=1.005 A (1.005-1.025) Urine Protein Negative (NEG/TRACE) mg/dL Urine Glucose (UA) Negative (NEGATIVE) mg/dL Urine Ketones Negative (NEGATIVE) mg/dL Urine Occult Blood Negative (NEGATIVE) Urine Nitrite Negative (NEGATIVE) Urine Bilirubin Negative (NEGATIVE) Urine Urobilinogen 1.0 (0.2-1.0) EU/dL Ur Leukocyte Esterase Negative (NEGATIVE) Imaging Data Chest x-ray: Radiologist's impression: ITS Impressions Chest X-Ray 09/29/24 14:25 IMPRESSION: No acute process. Impression dictated by: Alcon Heredia M.D. 09/29/2024 3:09 PM Dictation Location: [place] [id number] Electronically authenticated by: [id number] Y Date: 09/29/2024 15:09 Discharge Plan Discharge Chief Complaint: Fever Clinical Impression: Elevated LFTs, Post-procedural fever Patient Disposition: Home, Self-Care Prescriptions / Home Meds: No Action latanoprost 0.005 % drops 1 drp OPHTHALMIC (EYE) DAILY Rx Instructions: HS levothyroxine 137 mcg tablet 137 mcg PO DAILY omeprazole 40 mg capsule,delayed release(DR/EC) 40 mg PO DAILY Print Language: Citizen [place] Instructions: Fever in Adults (ED) Additional Instructions: Please follow-up with your specialist at the [facility] for reevaluation as discussed. May return to the ER with any concerns at any time. Referrals: MOISES THOMAS [Primary Care Provider, Internal Medicine] - 1 week Discharge Date/Time: 09/29/24 17:05
[2024-09-29 15:06] LABS: Hematocrit 29.1 % (42.0-54.0); Hemoglobin 9.1 g/dL (14.0-18.0); Mean Corpuscular HGB Conc 31.3 g/dL (29.9-35.2); Mean Corpuscular Hemoglobin 23.2 pg (25.9-34.0); Mean Platelet Volume 10.3 fL (9.5-13.5); Platelet Count 110 10^3/uL (150-450); Red Blood Count 3.93 10^6/uL (4.70-6.10); White Blood Count 5.3 10^3/uL (4.0-11.0)
[2024-09-29 15:12] LABS: Alanine Aminotransferase 160 U/L (16-63); Albumin Globulin Ratio 0.8; Alkaline Phosphatase 244 U/L (46-116); Anion Gap 13.1; Aspartate Amino Transferase 74 U/L (15-37); BUN Creatinine Ratio 18.6; Bilirubin Total 0.9 mg/dL (0.2-1.0); Calcium 8.5 mg/dL (8.5-10.1); Carbon Dioxide 25.4 mmol/L (21.0-32.0); Chloride 96 mmol/L (98-107); Estimated GFR (African America >60 (>=60 mL/min/1.73m^2); Estimated GFR (Non-African Ame >60 (>=60 mL/min/1.73m^2); Globulin 3.8 g/dL; Glucose 109 mg/dL (74-106); Potassium 3.5 mmol/L (3.5-5.1); Sodium 131 mmol/L (136-145); Total Protein 6.8 g/dL (6.4-8.2)
[2024-09-29 15:31] LABS: Basophils Abs Manual 0.05 10^3/uL (0.00-0.10); Lymphocytes Absolute Manual 0.74 10^3/uL (1.20-3.80); Monocytes Absolute Manual 0.21 10^3/uL (0.30-0.80); Segmented Neut Absolute Manual 4.29 10^3/uL (1.4-6.5)
[2024-09-29 15:47] VITALS: PULSE 78; TEMP 36.7; O2SAT 98
[2024-09-29 16:52] LABS: Bilirubin Urine NEGATIVE (NEGATIVE); Blood Urine NEGATIVE (NEGATIVE); Clarity Urine CLEAR (CLEAR); Color Urine LT. YELLOW (YELLOW); Glucose Urine UA NEGATIVE (NEGATIVE); Ketones Urine NEGATIVE (NEGATIVE); Leukocyte Esterase Urine NEGATIVE (NEGATIVE); Nitrite Urine NEGATIVE (NEGATIVE); Protein Urine NEGATIVE (NEG/TRACE); Specific Gravity Urine <=1.005 (1.005-1.025)
[2024-09-29 16:54] LABS: Urine Microscopic Indicated NO
== END 2024-09-29 17:05 | disposition home or self-care (01) ==
PROVIDERS: Nurse Practitioner; Emergency Provider Emergency Medicine; Family Provider Physician Assistant; PCP Internal Medicine
DX: R50.82 Postprocedural fever (principal); R79.89 Other specified abnormal findings of blood chemistry; Z98.890 Other specified postprocedural states; Z90.49 Acquired absence of other specified parts of digestive tract; D69.6 Thrombocytopenia, unspecified; D64.9 Anemia, unspecified
CPT/HCPCS: 36415; 71046; 80053; 81003; 85007; 85027; 99284

== ENCOUNTER 2024-11-09 21:48 | Emergency (ER) | payer MEDICARE, SELFPAY ==
[2024-11-09 21:55] VITALS: BP 103/88; PULSE 68; TEMP 36.7; O2SAT 99; BMI 24.7
--- OUTSIDE RECORDS SUMMARY | 2024-11-09 22:04 | XMS_ITS | CCD ---
Author Organization [facility] Inform ion [facility] Care Team Providers Care Health Services Information Specialist Name Role Phone BISHOP TURCIOS Admitting Unavailable BISHOP TURCIOS Attending Unavailable BISHOP TURCIOS Primary Care Unavailable BISHOP TURCIOS Consulting Unavailable ASA DUEÑAS Consulting Unavailable HEMKESHA GASPAR Admitting Unavailable HEMMERKESHA Attending Unavailable BISHOP TURCIOS Consulting Unavailable ASA [...] Care Provider BISHOP TURCIOS Primary Care Physician Rosi Hinton Attending Unavailable Rosi Hinton Admitting Unavailable Rosi Hinton Attending Unavailable Rosi Hinton Admitting Unavailable Rosi Hinton Attending Unavailable Rosi Hinton Admitting Unavailable MD Clark Bass Attending Unavailable Mallorie Piper Referring Unavailable Rosi Hinton Admitting Unavailable Rosi Hinton Attending Unavailable Li Gaspar Attending Unavailabl e Li Gaspar Admitting Unavailabl e Li Gaspar Admitting Unavailabl e Al-Marrawi, Mhd Yaser Attending Unavailabl e Al-Marrawi, Mhd Yaser Attending Unavailabl e Al-Marrawi, Mhd Yaser Admitting Unavailabl e Al-Marrawi, Mhd Yaser Attending Unavailabl e Al-Marrawi, Mhd Yaser Admitting Unavailabl e Villegas MANAGER UNIVERSAL, Katie Unavailable Unavailable Shay Espinoza Attending Unavailable Veronique, Mallorie N Referring Unavailable Al-Marrawi, Mhd Yaser Attending Unavailabl e Al-Marrawi, Mhd Yaser Admitting Unavailabl e Clark Bass Attending Unavailable Veronique, Mallorie N Referring Unavailable Chris Agustin Attending Unavailabl e Veronique, Mallorie N Referring Unavailable BERENICE Corbin Referring Unavailab le Rosi Hinton Attending Unavailable Al-Mararyan, Li Evans Attending Unavailabl e KESHA MARIN Referring Unavailable Veronique, Mallorie N Referring Unavailable Veronique, Mallorie N Admitting Unavailable Veronique, Mallorie N Attending Unavailable DIAB, ATUL Referring Unavailable PROVIDER, UNKNOWN Admitting Unavailable PROVIDER, UNKNOWN Attending Unavailable DIAB, ATUL Referring Unavailable PROVIDER, UNKNOWN Admitting Unavailable PROVIDER, UNKNOWN Attending Unavailable RAJENDRA REYNA Admitting Unavailable RAJENDRA REYNA Attending Unavailable RAJENDRA REYNA Attending Unavailable RAJENDRA REYNA Referring Unavailable RAJENDRA REYNA Admitting Unavailable DIAB, ATUL Referring Unavailable VICKIE, NIRAV Admitting Unavailable PROVIDER, UNKNOWN Attending Unavailable [phone], IP EGS TEAM Consulting Unavailabl e DIAB, ATUL Referring Unavailable VICKIE NIRAV Admitting Unavailable ROSI HINTON Attending Unavailable REQUEST, IP PHYSICAL THERAPY SERVICE Consulting Unavailable REQUEST, IP OCCUPATIONAL THERAPY SERVICE Consult ing Unavailable PROVIDER, UNKNOWN Admitting Unavailable MARJAN GILLIS Attending Unavailable Unavailable Primary Care Provider Unavailkyra Graham RN, Cristina Patricia Unavailable Unavailab KESHA Soares Attending Unavailable BISHOP TURCIOS Attending Unavailable BISHOP TURCIOS Attending Unavailable BRY ZAFAR Attending Unavailable BRY ZAFAR Attending Unavailable KESHA MARIN Attending Unavailable KATHRINE FORMAN Attending Unavailable BRY ZAFAR Attending Unavailable KESHA MARIN Attending Unavailable BRY ZAFAR Attending Unavailable KESHA MARIN Attending Unavailable KATHRINE FORMAN Attending Unavailable BISHOP TURCIOS Attending Unavailable ADAN SUAREZ Attending Unavailable ADAN SUAREZ Attending Unavailable KATHRINE FORMAN Attending Unavailable TESHA LIND Attending Unavailable Allergies Allergy Classification Reported Allergen(s) Allergy Type Date of Onset Reaction(s) Facility (12 sources) Naproxen; Translations: [naproxen] Drug Allergy 7 [facility] Repository (20 sources) Penicillin; Translations: [penicillin] Drug Allergy 7 Unknown (qualifier value) [facility] Repository (20 sources) Honey bee venom Propensity to adverse reactions 9 [facility] Work Phone: (20 sources) meloxicam Drug Allergy 3 Hives [facility] (20 sources) Naproxen; Translations: [naproxen] Drug Allergy 3 Hives [facility] (20 sources) Penicillin G Drug Allergy 3 Hives, Unknown [facility] (20 sources) Penicillins; Translations: [PENICILLINS] Drug Intolerance 5 Swelling [facility] Work Phone: Medications Current Medications Medication Drug Class(es) Dates Sig (Normalized) Sig (Original) acetaminophen 325 mg oral tablet (6 sources) Start: 05-23-2024 take 2 tablets by mouth every six hours acetaminophen (TYLENOL) 325 mg tablet Take 2 Tablets by mouth every 6 (six) hours. 30 Tablet 05/24/2024 4:33 PM EST 05/23/2024 Active Start: 05-21-2024 End: 05-23-2024 take 650 mg by mouth every six hours 650 mg, Oral, Every 6 hours, First dose on 05/21/24 at 1646, Until Discontinued aspirin 81 mg oral capsule (20 sources) Platelet Aggregation Inhibitor, Nonsteroidal Anti-inflammatory Drug Start: 05-05-2024 take 1 capsule by mouth once daily aspirin 81 mg oral capsule 81 mg = 1 cap(s), Oral, Daily, Refills(s) 0 Start Date: 05/05/24 Status: Ordered Repeat number: 1 take 1 tablet by mouth once heather y aspirin (Aspirin 81) 81 MG chewable tablet Take 81 mg by mouth daily. Active take 1 tablet by mouth once heather y aspirin 81 MG EC tablet Take 1 tablet by mouth 1 (one) time each day at the same time. Active Calcium Carbonate-Vit D-Min (Calcium 600+D3 Plus Minerals) 600-800 MG-UNIT tablet (20 sources) take 600-800 tablets by mouth once daily Calcium Carbonate-Vit D-Min (Calcium 600+D3 Plus Minerals) 600-800 MG-UNIT tablet Take 1 tablet by mouth 1 (one) time each day at the same time. Active Calcium Carbonate-Vit D-Min (Calcium 600+D3 Plus Minerals) 600-800 MG-UNIT TABS (5 sources) take 600-800 tablets by mouth once daily Calcium Carbonate-Vit D-Min (Calcium 600+D3 Plus Minerals) 600-800 MG-UNIT TABS Take 1 Tablet by mouth daily. Active take 600-800 tablets by mouth once daily Calcium Carbonate-Vit D-Min (Calcium 600 +D3 Plus Minerals) 600-800 MG-UNIT TABS Take 1 Tablet by mouth daily. Suspended Calcium Citrate (17 sources) Start: 05-05-2024 take 600 mg by mouth twice daily CALCIUM CITRATE ORAL Take 600 mg by mouth 2 times a day. 05/05/2024 Active Start: 05-05-2024 take 600 mg by mouth twice daily CALCIUM CITRATE ORAL Take 600 mg by mouth 2 times a day. 05/05/2024 Suspended Start: 05-05-2024 take 600 mg by mouth twice daily calcium citrate 600 mg, Oral, BID, Refills(s) 0 Start Date: 05/05/24 Status: Ordered Repeat number: 1 Start: 05-05-2024 take 600 mg by mouth twice daily calcium citrate 600 mg, Oral, BID, Refills(s) 0 Start Date: 05/05/24 Status: Ordered cephalexin 500 mg oral capsule (1 source) Cephalosporin Antibacterial Start: 05-31-2024 End: 06-05-2024 take 1 capsule by mouth four times daily Keflex 500 mg Cap 500 mg = 1 cap(s), Oral, QID, X 5 day(s), # 20 cap(s), Refills(s) 0, Pharmacy: [id number], 175, cm, 05/31/24 10:06:00 EST, Height/Length Dosing, 76, kg, 05/31/24 10:06:00 EST, Weight Dosing Start Date: 05/31/24 Stop Date: 06/05/24 Status: Ordered ciprofloxacin 500 mg oral tablet (1 source) Quinolone Antimicrobial Start: 05-06-2024 End: 05-08-2024 take 1 tablet by mouth every twelve hours Cipro 500 mg Tab 500 mg = 1 tab(s), Oral, q12hr, X 2 day(s), # 4 tab(s), Refills(s) 0, Pharmacy: [id number], 175.3, cm, 05/05/24 1:14:00 EST, Height/Length Dosing, 79.6, kg, 05/05/24 1:14:00 EST, Weight Dosing Start Date: 05/06/24 Stop Date: 05/08/24 Status: Ordered diphenhydrAMINE hydrochloride 25 mg oral tablet (20 sources) Histamine-1 Receptor Antagonist Start: 05-05-2024 diphenhydrAMINE 25 mg, Oral, PRN as needed for itching, Refills(s) 0 Start Date: 05/05/24 Status: Ordered Repeat number: 1 docusate sodium 100 mg oral capsule (20 sources) Start: 05-06-2024 End: 05-16-2024 take 1 capsule by mouth twice daily Colace 100 mg Cap 100 mg = 1 cap(s), Oral, BID, X 10 day(s), # 20 cap(s), Refills(s) 0, Pharmacy: [id number], 175.3, cm, 05/05/24 1:14:00 EST, Height/Length Dosing, 79.6, kg, 05/05/24 1:14:00 EST, Weight Dosing Start Date: 05/06/24 Stop Date: 05/16/24 Status: Ordered take 1 capsule by [facility] every twenty-four hours as needed Docusate Sodium (DSS) 100 MG capsule Take 1 capsule by mouth Daily as needed. Active doxycycline hyclate 100 mg oral capsule (2 sources) Tetracycline-class Drug Start: 09-07-2024 End: 09-14-2024 doxycycline (Vibramycin) 100 MG capsule Indications: Cellulitis of right hand Take 1 capsule (100 mg) by mouth in the morning and 1 capsule (100 mg) before bedtime. Do all this for 7 days. Take with at least 8 ounces (large glass) of water, do not lie down for 30 minutes after. 14 capsule 09/07/2024 09/14/2024 Active ferrous sulfate (20 sources) Start: 05-05-2024 take 65 mg by mouth once daily ferrous sulfate 65 mg, Oral, Daily, Refills(s) 0 Start Date: 05/05/24 Status: Ordered Repeat number: 1 Start: 05-05-2024 take 65 mg by mouth once daily ferrous sulfate 65 mg, Oral, Daily, Refills(s) 0 Start Date: 05/05/24 Status: Ordered take 1 tablet by jeanne th once daily ferrous sulfate 325 mg (65 mg elemental) tablet Take 1 Tablet by mouth daily. Active latanoprost 0.05 mg/ml ophthalmic solution (20 sources) Prostaglandin Analog Start: 07-27-2022 take 1 drop(s) into the eye(s) in the morning latanoprost (Xalatan) 0.005 % ophthalmic solution Administer 1 drop into both eyes in the morning. 07/27/2022 Active metroNIDAZOLE 500 mg oral tablet (1 source) Nitroimidazole Antimicrobial Start: 05-06-2024 End: 05-08-2024 take 1 tablet by mouth every eight hours Flagyl 500 mg Tab 500 mg = 1 tab(s), Oral, q8hr, X 2 day(s), # 6 tab(s), Refills(s) 0, Pharmacy: [id number], 175.3, cm, 05/05/24 1:14:00 EST, Height/Length Dosing, 79.6, kg, 05/05/24 1:14:00 EST, Weight Dosing Start Date: 05/06/24 Stop Date: 05/08/24 Status: Ordered 1 ml morphine sulfate 2 mg/ml cartridge (1 source) Opioid Agonist Start: 09-27-2024 End: 09-29-2024 2 mg, Intravenous Push, EVERY 15 MIN PRN, 4 doses, Starting on Wed09/27/24 at 1026, Until Wed09/29/24 at 1025, Moderate Pain (pain score 4,5,6), PACU Now Multiple Vitamin (MULTIVITAMINS PO) (20 sources) take 1 tablet by mouth once daily Multiple Vitamin (MULTIVITAMINS PO) Take 1 tablet by mouth 1 (one) time each day. Active Multiple Vitamins oral capsule (12 sources) Start: 05-05-2024 take 1 capsule by mouth once daily Multiple Vitamins oral capsule 1 cap(s), Oral, Daily, Refill(s) 0 Start Date: 05/05/24 Status: Ordered Repeat number: 1 Start: 05-05-2024 take 1 capsule by mo uth once daily Multiple Vitamins oral capsule 1 cap(s), Oral, Daily, Refill(s) 0 Start Date: 05/05/24 Status: Ordered omeprazole 40 mg delayed release oral capsule (20 sources) Proton Pump Inhibitor Start: 04-07-2024 End: 07-10-2025 take 1 capsule by mouth once daily omeprazole 40 mg Cap-DR 40 mg = 1 cap(s), Oral, Daily, Refills(s) 0 Start Date: 05/05/24 Status: Ordered Repeat number: 1 Start: 01-03-2024 take 1 capsule by [facility] once daily omeprazole (PriLOSEC) [address] capsule Indications: Gastroesophageal reflux disease without esophagitis TAKE 1 CAPSULE BY MOUTH ONCE DAILY AT THE SAME TIME EACH DAY 100 capsule 01/03/2024 Active 2 ml ondansetron 2 mg/ml injection (1 source) Serotonin-3 Receptor Antagonist Start: 09-27-2024 End: 09-27-2024 take 4 mg intravenously once as needed for nausea 4 mg, Intravenous Push, PACU ONCE PRN, Starting on Wed09/27/24 at 1026, Until Wed09/27/24 at 1625, Nausea, Vomiting, PACU Now tiZANidine 4 mg oral tablet (15 sources) Central alpha-2 Adrenergic Agonist Start: 2024 End: 09-09-2024 take 1 tablet by mouth once tiZANidine (Zanaflex) 4 MG tablet Indications: Neck muscle spasm Take 1 tablet (4 mg) by mouth every 12 (twelve) hours if needed for muscle spasms for up to 10 days 20 tablet 2024 Active Start: 08-17-2024 End: 08-27-2024 take 1 tablet by mouth once tiZANidine (Zanaflex) 4 MG tablet Indications: Neck muscle spasm Take 1 tablet (4 mg) by mouth every 12 (twelve) hours if needed for muscle spasms for up to 10 days 20 tablet 08/17/2024 08/27/2024 Active Tylenol 8 HR Arthritis Pain (12 sources) Start: 05-05-2024 Tylenol 8 HR A rthritis Pain 650 mg, Oral, PRN as needed for pain, Refills(s) 0 Start Date: 05/05/24 Status: Ordered Repeat number: 1 Start: 05-05-2024 Tylenol 8 HR A rthritis Pain 650 mg, Oral, PRN as needed for pain, Refills(s) 0 Start Date: 05/05/24 Status: Ordered vitamin b12 0.5 mg oral tablet (20 sources) Vitamin B12 Start: 05-05-2024 take 1 tablet by mouth once daily vitamin B-12 (CYANOCOBALAMIN) 500 MCG tablet Take 500 mcg by mouth daily. 05/05/2024 Active Start: 05-05-2024 take 500 ug by mouth once daily Vitamin B12 500 mcg, Oral, Daily, Refills(s) 0 Start Date: 05/05/24 Status: Ordered Repeat number: 1 Start: 05-05-2024 take 500 ug by mouth once daily Vitamin B12 500 mcg, Oral, Daily, Refills(s) 0 Start Date: 05/05/24 Status: Ordered take 1 tablet by jeanne once daily cyanocobalamin (Vitamin B-12) 100 MCG tablet Take 1 tablet by mouth 1 (one) time each day at the same time. Active Completed/Discontinued Medications Medication Drug Class(es) Dates Sig (Normalized) Sig (Original) amoxicillin 875 mg / clavulanate 125 mg oral tablet (2 sources) Penicillin-class Antibacterial Start: 05-23-2024 End: 05-28-2024 take 1 tablet by mouth twice daily in the evening amoxicillin-clavu lanate (AUGMENTIN) 875-125 MG per tablet Take 1 Tablet by mouth 2 times daily for 4 days. 8 Tablet 05/24/2024 4:33 PM EST 05/23/2024 05/28/2024 azithromycin 250 mg oral tablet (6 sources) Macrolide Antimicrobial Start: 03-26-2023 End: 01-10-2024 azithromycin (Zithromax) 250 MG tablet Indications: Acute maxillary sinusitis, recurrence not specified 2 tabs x 1 day, 1 tab x 4 days 6 tablet 03/26/2023 01/10/2024 Discontinued (Therapy completed) bacitracin 0.5 unt/mg topical ointment (1 source) Start: 05-22-2024 End: 05-23-2024 Topical, DAILY PRN, Starting on Wed05/22/24 at 1453, Until Wed05/23/24 at 1738, Apply to catheter site with dressing change bisacodyl 10 mg rectal suppository (1 source) Stimulant Laxative Start: 05-22-2024 End: 05-23-2024 take 10 mg rectal route once daily as needed for constipation 10 mg, Rectal, DAILY PRN, Starting on Wed05/22/24 at 1451, Until Wed05/23/24 at 1738, Constipation calcium chloride 0.0014 meq/ml / potassium chloride 0.004 meq/ml / sodium chloride 0.103 meq/ml / sodium lactate 0.028 meq/ml injectable solution (1 source) Start: 05-21-2024 End: 05-22-2024 Intravenous, at 100 mL/hr, Once Continuous, Starting on Wed05/21/24 at 1646, Until Wed05/22/24 at 0315 docosahexaenoic acid 120 mg / eicosapentaenoic acid 180 mg oral capsule (16 sources) End: 05-04-2024 take 1 capsule by mouth every twelve hours omega-3 (Fish Oil) 1000 MG capsule Take 1 capsule by mouth every 12 (twelve) hours. 05/04/2024 Discontinued (Therapy completed) 0.4 ml enoxaparin sodium 100 mg/ml prefilled syringe (1 source) Low Molecular Weight Heparin Start: 05-22-2024 End: 05-23-2024 inject 40 mg by subcutaneous injection twice daily 40 mg, Subcutaneous, 2 TIMES DAILY, First dose on Wed05/22/24 at 2100, Until Discontinued enoxaparin (LMWH) anti-fxa lab draw (1 source) Start: 05-24-2024 End: 05-23-2024 Other, ONCE, 1 dose, On Wed05/24/24 at 0100 2 ml fentaNYL 0.05 mg/ml injection (1 source) Opioid Agonist Start: 05-22-2024 End: 05-22-2024 Intravenous Push, PRN, Starting on Wed05/22/24 at 1037, Until Wed05/22/24 at 1044, Intra Procedure levothyroxine (20 sources) l-Thyroxine Start: 05-22-2024 End: 05-23-2024 take 137 ug by mouth before breakfast 137 mcg, Oral, BEFORE BREAKFAST, First dose on Wed05/22/24 at 1530, Until Discontinued Start: 05-05-2024 take 1 tablet by jeanne th once daily levothyroxine 137 mcg (0.137 mg) Tab 137 mcg = 1 tab(s), Oral, Daily, Refills(s) 0 Start Date: 05/05/24 Status: Ordered Repeat number: 1 Start: 02-14-2024 take 1 tablet by jeanne th once daily levothyroxine (SYNTHROID) 137 MCG tablet Take 137 mcg by mouth daily. 02/14/2024 Active Start: 08-04-2023 take 1 tablet by jeanne th once daily before mealtime levothyroxine (Synthroid, Levoxyl) 137 MCG tablet Indications: Hypothyroidism (acquired) (CMS/HCC) TAKE 1 TABLET BY MOUTH ONCE DAILY IN THE MORNING BEFORE MEALS 100 tablet 08/04/2023 Active melatonin 3 mg oral tablet (20 sources) Start: 05-22-2024 End: 05-23-2024 take 3 mg by mouth at bedtime 3 mg, Oral, AT BEDTIME, First dose on Wed05/22/24 at 2300, Until Discontinued Start: 05-05-2024 take 5 mg by mouth o nce daily at bedtime melatonin 5 mg, Oral, Once a day (at bedtime), Refills(s) 0 Start Date: 05/05/24 Status: Ordered Repeat number: 1 2 ml midazolam 1 mg/ml injection (1 source) Benzodiazepine Start: 05-22-2024 End: 05-22-2024 Intravenous Push, PRN, Starting on Wed05/22/24 at 1037, Until Wed05/22/24 at 1037, Intra Procedure 1 ml naloxone hydrochloride 0.4 mg/ml injection (1 source) Opioid Antagonist Start: 09-27-2024 0.4 mg, Intr avenous Push, PRN, Starting on Wed09/27/24 at 1026, Until Discontinued, Respiratory Rate Less Than 8 for adults and less than 12 for Peds or for suspected overdose, PACU Now NS Flush 10 mL (3 sources) Start: 07-08-2024 NS Flush 10 mL See Instructions, 60 EA, Refill(s) 0, flush drain twice daily as directed, [id number], 175, cm, 06/21/24 10:34:00 EST, Height/Length Dosing, 77, kg, 06/21/24 10:34:00 EST, Weight Dosing Start Date: 07/08/24 Status: Ordered Quantity: 60.0 Unit: EA Repeat number: 1 oxyCODONE (2 sources) Opioid Agonist Start: 05-22-2024 End: 05-23-2024 oxyCODONE immediate release tablet Start: 05-06-2024 End: 05-09-2024 oxyCODONE 5 mg Tab 2.5 mg = 0.5 tab(s), Oral, q6hr, PRN Pain 8-10, X 3 day(s), # 6 tab(s), Refills(s) 0, Pharmacy: [id number], 175.3, cm, 05/05/24 1:14:00 EST, Height/Length Dosing, 79.6, kg, 05/05/24 1:14:00 EST, Weight Dosing Start Date: 05/06/24 Stop Date: 05/09/24 Status: Ordered pantoprazole 40 mg delayed release oral tablet (1 source) Proton Pump Inhibitor Start: 05-23-2024 End: 05-23-2024 take 40 mg by mouth once daily 30 minutes before breakfast 40 mg, Oral, DAILY 30 MIN BEFORE BREAKFAST, First dose on Wed05/23/24 at 0830, Until Discontinued piperacillin 3000 mg / tazobactam 375 mg injection (1 source) Penicillin-class Antibacterial, beta Lactamase Inhibitor Start: 05-21-2024 End: 05-23-2024 3,375 mg (3.375 g), Intravenous, EVERY 6 HOURS ANTIBIOTIC, 19 doses, First dose (after last reorder) on Wed05/21/24 at 2200, Last dose on Wed05/26/24 at 1000, at 100 mL/hr piperacillin-tazoba ctam (ZOSYN) 3,375 mg in sodium chloride 10 mL IV push (1 source) Start: 05-21-2024 End: 05-21-2024 3,375 mg (3.375 g), Intravenous, EVERY 6 HOURS ANTIBIOTIC, First dose on Wed05/21/24 at 1625, Until Discontinued, at 200 mL/hr polyethylene glycol 3350 42913 mg powder for oral solution (1 source) Osmotic Laxative Start: 05-22-2024 End: 05-23-2024 17 g, Oral, DAILY, First dose on Wed05/22/24 at 1530, Until Discontinued sennosides, custodial 8.6 mg oral tablet (2 sources) Start: 05-22-2024 End: 05-23-2024 take 8.6 mg by mouth at bedtime 8.6 mg, Oral, AT BEDTIME, First dose on Wed05/22/24 at 2200, Until Discontinued Start: 05-06-2024 End: 05-16-2024 take 1 tablet by mouth once daily at bedtime senna 8.6 mg Tab 8.6 mg = 1 tab(s), Oral, Once a day (at bedtime), X 10 day(s), # 10 tab(s), Refills(s) 0, Pharmacy: [id number], 175.3, cm, 05/05/24 1:14:00 EST, Height/Length Dosing, 79.6, kg, 05/05/24 1:14:00 EST, Weight Dosing Start Date: 05/06/24 Stop Date: 05/16/24 Status: Ordered 20 ml sodium chloride 9 mg/m l injection (6 sources) Start: 09-27-2024 3 mL, Intraven ous Push, PRN, Starting on Wed09/27/24 at 1026, Until Discontinued, For medication administration and blood draw, PACU Now Start: 05-23-2024 sodium chlorid e (BD PosiFlush) 0.9 % SOLN flush syringe 10 mL by Intracatheter route 3 times daily (with meals). 1000 mL 05/23/2024 Active Problems Active Problems Problem Classification Problem Date Documented Da te Episodic/Chronic Abdominal pain (2 sources) Generalized abdominal pain; Translations: [Generalized abdominal pain] 05-04-2024 Episodic Acquired foot deformities (20 sources) Bunion; Translations: [Bunion of left foot] Onset: 07-10-2024 Episodic Administrative/social admission (2 sources) Patient encounter status; Translations: [Other specified counseling] 01-10-2024 Episodic Biliary tract disease (1 source) Obstruction of bile duct; Translations: [Obstruction of bile duct] 09-27-2024 Chronic Biliary tract disease (2 sources) Acute cholecystitis; Translations: [Acute cholecystitis] Onset: 5 Episodic Coagulation and hemorrhagic disorders (3 sources) Thrombocytopenic disorder; Translations: [Thrombocytopenia, unspecified] Onset: 5 05-18-2024 Chronic Complications of surgical procedures or medical care (20 sources) Postprocedural intraabdominal abscess; Translations: [Infection following a procedure, organ and space surgical site, initial encounter] Onset: 5 05-24-2024 Episodic Deficiency and other anemia (1 source) Anemia; Translations: [Anemia, unspecified] Onset: 5 Episodic Deficiency and other anemia (20 sources) Microcytic anemia; Translations: [Iron deficiency anemia, unspecified] Onset: 5 05-18-2024 Episodic Deficiency and other anemia (1 source) Iron deficiency anemia; Translations: [Iron deficiency anemia, unspecified] Onset: 5 Episodic Diseases of mouth; excluding dental (2 sources) Disorder of lip; Translations: [Diseases of lips] 10-03-2024 Episodic Disorders of teeth and jaw (2 sources) Pain of left temporomandibular joint; Translations: [Arthralgia of left temporomandibular joint] 08-17-2024 Episodic Esophageal disorders (20 sources) Gastroesophageal reflux disease without esophagitis; Translations: [Gastro-esophageal reflux disease without esophagitis] Onset: 3 12-16-2022 Chronic Miscellaneous mental health disorders (20 sources) Chronic insomnia; Translations: [Psychophysiologic insomnia] Onset: 3 12-16-2022 Chronic Neoplasms of unspecified nature or uncertain behavior (6 sources) Neoplastic disease; Translations: [Neoplasm of unspecified behavior of bone, soft tissue, and skin] 01-03-2024 Episodic Osteoarthritis (20 sources) Bilateral primary osteoarthritis of knee; Translations: [Degenerative joint disease involving multiple joints] Onset: 0 12-16-2022 Chronic Other aftercare (3 sources) Removal of sutures done; Translations: [Encounter for removal of sutures] 03-15-2024 Episodic Other aftercare (1 source) Post-discharge follow-up; Translations: [Encounter for follow-up examination after completed treatment for conditions other than malignant neoplasm] 05-31-2024 Episodic Other and unspecified benign neoplasm (2 sources) Melanocytic nevus of trunk; Translations: [Melanocytic nevi of trunk] 08-23-2024 Episodic Other connective tissue disease (8 sources) Pain in left foot; Translations: [Pain in left foot] 08-03-2024 Episodic Other connective tissue disease (2 sources) Muscle spasm of cervical muscle of neck; Translations: [Other muscle spasm] 08-17-2024 Episodic Other gastrointestinal disorders (2 sources) Chronic idiopathic constipation; Translations: [Chronic idiopathic constipation] 05-04-2024 Chronic Other liver diseases (2 sources) Elevated liver enzymes level; Translations: [Abnormal levels of other serum enzymes] 10-03-2024 Episodic Other non-epithelial cancer of skin (15 sources) Basal cell carcinoma of truncal skin; [...] Translations: [Anorexia] 05-18-2024 Episodic Other skin disorders (6 sources) Actinic keratosis; Translations: [Actinic keratosis] 03-28-2024 Episodic Other skin disorders (4 sources) Seborrheic keratosis; Translations: [Other seborrheic keratosis] 01-03-2024 Episodic Other skin disorders (12 sources) Lentiginosis; Translations: [Other melanin hyperpigmentation] 01-03-2024 Episodic Other skin disorders (2 sources) Finding of appearance of nail; Translations: [Nail dystrophy] 10-03-2024 Episodic Skin and subcutaneous tissue infections (2 sources) Cellulitis of right hand; Translations: [Cellulitis of right upper limb] 09-07-2024 Episodic Spondylosis; intervertebral disc disorders; other back problems (20 sources) Spondylosis without myelopathy or radiculopathy, cervical region; Translations: [Cervical spondylosis without myelopathy] Onset: 9 12-16-2022 Chronic Thyroid disorders (20 sources) Acquired hypothyroidism; Translations: [Hypothyroidism, unspecified] Onset: 12-16-2022 Chronic Unclassified (8 sources) Seborrheic keratosis 06-06-2024 Viral infection (8 sources) Verruca plantaris; Translations: [Plantar wart] 08-03-2024 Episodic Past or Other Problems Problem Classification Problem Date Documented Da te Episodic/Chronic Diabetes mellitus without complication (20 sources) Impaired glucose tolerance; Translations: [Impaired glucose tolerance (oral)] Onset: 12-16-2022 12-16-2022 Episodic Mood disorders (20 sources) Mood disorders Onset: 01-06-2023 01-06-2023 Other bone disease and musculoskeletal deformities (20 sources) Disorder of bone, unspecified; Translations: [Disorder of bone and cartilage, unspecified] Onset: 04-06-2019 12-16-2022 Episodic Other nutritional; endocrine; and metabolic disorders (20 sources) Overweight; Translations: [Overweight] Onset: 12-16-2022 12-16-2022 Episodic Other screening for suspected conditions (not mental disorders or infectious disease) (20 sources) Abnormal findings on diagnostic imaging of limbs; Translations: [Plain X-ray knee abnormal] Onset: 05-15-2019 12-16-2022 Episodic Spondylosis; intervertebral disc disorders; other back problems (4 sources) Cervicalgia; Translations: [CERVICALGIA] Onset: 07-07-2018 Episodic Results Test Name Value Interpretation Reference Range Facility CBC (INCLUDES DIFF/PLT)on Basophils (Bld) [#/Vol] 0.061 10*3/uL Normal 0-200 [facility] Comment on above: Performed By: #### 1 3761, 7650, 891, 927, 466, 457, 6399 #### [facility] [address], [address] [place] [id number] Childcare Teacher: Bert Musa MD Basophils/100 WBC (Bld) 1.0 % Normal [facility] Comment on above: Performed By: #### 1 0231, 7573, 891, 927, 466, 457, 6399 #### [facility] of [place] [address] Childcare Teacher: Bert Musa MD COMMENT(S) Normal [facility] Comment on above: Result Comment: Revi ew of peripheral smear confirms automated results. Performed By: #### 1 0231, 7573, 891, 927, 466, 457, 6399 #### [facility] of [address], [address] [place] [address] Childcare Teacher: Bert Musa MD Eosinophils (Bld) [#/Vol] 0.14 10*3/uL Normal 15-500 [facility] Comment on above: Performed By: #### 1 0231, 7573, 891, 927, 466, 457, 6399 #### [facility] [place] [address] Childcare Teacher: Bert Musa MD Eosinophils/100 WBC (Bld) 2.3 % Normal [facility] Comment on above: Performed By: #### 1 0231, 7573, 891, 927, 466, 457, 6399 #### [facility] [place] [address] Childcare Teacher: Bert Musa MD Erythrocyte distribution width (RBC) [Ratio] 17.5 % High 11.0-15.0 [facility] Comment on above: Performed By: #### 1 0231, 7573, 891, 927, 466, 457, 6399 #### [facility] [place] [address] Childcare Teacher: Bert Musa MD Hematocrit (Bld) [Volume fraction] 33.7 % Low 38.5-50.0 [facility] Comment on above: Performed By: #### 1 0231, 7573, 891, 927, 466, 457, 6399 #### [facility] of [place] [id number] Childcare Teacher: Bert Musa MD Hemoglobin (Bld) [Mass/Vol] 9.7 g/dL Low 13.2-17.1 [facility] Comment on above: Performed By: #### 1 0231, 7573, 891, 927, 466, 457, 6399 #### [facility] [place] [address] Childcare Teacher: Bert Musa MD Lymphocytes (Bld) [#/Vol] 1.592 10*3/uL Normal 850-3900 [facility] Comment on above: Performed By: #### 1 0231, 7573, 891, 927, 466, 457, 6399 #### [facility] [place] [address] Childcare Teacher: Bert Musa MD Lymphocytes/100 WBC (Bld) 26.1 % Normal [facility] Comment on above: Performed By: #### 1 0231, 7573, 891, 927, 466, 457, 6399 #### [facility] [place] [address] Childcare Teacher: Bert Musa MD MCH (RBC) [Entitic mass] 22.7 pg Low 27.0-33.0 [facility] Comment on above: Performed By: #### 1 0231, 7573, 891, 927, 466, 457, 6399 #### [facility] [place] [address] Childcare Teacher: Bert Musa MD MCHC (RBC) [Mass/Vol] 28.8 g/dL Low 32.0-36.[address] [facility] Comment on above: Result Comment: For adults, a slight decrease in the calculated MCHC value (in the range of 30 to 32 g/dL) is most likely not clinically significant; however, it should be interpreted with caution in correlation with other red cell parameters and the patient's clinical condition. Performed By: #### 1 0231, 7573, 891, 927, 466, 457, 6399 #### [facility] [place] [address] Childcare Teacher: Bert Musa MD MCV (RBC) [Entitic vol] 78.9 fL Low 80.0-100.0 [facility] Comment on above: Performed By: #### 1 0231, 7573, 891, 927, 466, 457, 6399 #### [facility] [place] [address] Childcare Teacher: Bert Musa MD Monocytes (Bld) [#/Vol] 0.598 10*3/uL Normal 200-950 [facility] Comment on above: Performed By: #### 1 0231, 7573, 891, 927, 466, 457, 6399 #### [facility] [place] [address] Childcare Teacher: Bert Musa MD Monocytes/100 WBC (Bld) 9.8 % Normal [facility] Comment on above: Performed By: #### 1 0231, 7573, 891, 927, 466, 457, 6399 #### [facility] [place] [address] Childcare Teacher: Bert Musa MD Neutrophils (Bld) [#/Vol] 3.709 10*3/uL Normal 5493-8483 [facility] Comment on above: Performed By: #### 1 0231, 7573, 891, 927, 466, 457, 6399 #### [facility] [place] [address] Childcare Teacher: Bert Musa MD Neutrophils/100 WBC (Bld) 60.8 % Normal [facility] Comment on above: Performed By: #### 1 0231, 7573, 891, 927, 466, 457, 6399 #### [facility] of [place] [address] Childcare Teacher: Bert Musa MD Platelet mean volume (Bld) [Entitic vol] 11.2 fL Normal 7.5-12.5 [facility] Comment on above: Performed By: #### 1 0231, 7573, 891, 927, 466, 457, 6399 #### [facility] [place] [address] Childcare Teacher: Bert Musa MD Platelets (Bld) [#/Vol] 154 10*3/uL Normal 140-400 [facility] Comment on above: Performed By: #### 1 0231, 7573, 891, 927, 466, 457, 6399 #### [facility] of [address], [address] [place] [address] Childcare Teacher: Bert Musa MD RBC (Bld) [#/Vol] 4.27 10*6/uL Normal 4.20-5.80 [facility] Comment on above: Performed By: #### 1 0231, 7573, 891, 927, 466, 457, 6399 #### [facility] [place] [address] Childcare Teacher: Bert Musa MD WBC (Bld) [#/Vol] 6.1 10*3/uL Normal 3.8-10.8 [facility] Comment on above: Performed By: #### 1 0231, 7573, 891, 927, 466, 457, 6399 #### [facility] [place] [address] Childcare Teacher: Bert Musa MD [facility] 11-03-2024 Albumin [Mass/Vol] 3.9 g/dL Normal 3.6-5.1 [facility] Comment on above: Performed By: #### 1 0231, 7573, 891, 927, 466, 457, 6399 #### [facility] [place] [address] Childcare Teacher: Bert Musa MD Albumin/Globulin [Mass ratio] 1.5 {ratio} Normal 1.0-2.5 [facility] Comment on above: Performed By: #### 1 0231, 7573, 891, 927, 466, 457, 6399 #### [facility] of [address], [address] [place] [address] Childcare Teacher: Bert Musa MD ALP [Catalytic activity/Vol] 87 U/L Normal 35-144 [facility] Comment on above: Performed By: #### 1 0231, 7573, 891, 927, 466, 457, 6399 #### [facility] of [address], [address] [place] [address] Childcare Teacher: Bert Musa MD ALT [Catalytic activity/Vol] 10 U/L Normal 9-46 [facility] Comment on above: Performed By: #### 1 0231, 7573, 891, 927, 466, 457, 6399 #### [facility] of [address], [address] [place] [address] Childcare Teacher: Bert Musa MD AST [Catalytic activity/Vol] 16 U/L Normal 10-35 [facility] Comment on above: Performed By: #### 1 0231, 7573, 891, 927, 466, 457, 6399 #### [facility] of [address], [address] [place] [address] Childcare Teacher: Bert Musa MD Bilirubin [Mass/Vol] 0.4 mg/dL Normal 0.2-1.2 [facility] Comment on above: Performed By: #### 1 0231, 7573, 891, 927, 466, 457, 6399 #### [facility] of [address], [address] [place] [address] Childcare Teacher: Bert Musa MD BUN/CREATININE RATIO SEE NOTE: Normal 6-22 [facility] Comment on above: Result Comment: Not Reported: BUN and Creatinine are within reference range. Performed By: #### 1 0231, 7573, 891, 927, 466, 457, 6399 #### [facility] of [address], [address] [place] [address] Childcare Teacher: Bert Musa MD Calcium [Mass/Vol] 8.6 mg/dL Normal 8.6-10.3 [facility] Comment on above: Performed By: #### 1 0231, 7573, 891, 927, 466, 457, 6399 #### [facility] [place] [address] Childcare Teacher: Bert Musa MD Chloride [Moles/Vol] 104 mmol/L Normal 98-110 [facility] Comment on above: Performed By: #### 1 0231, 7573, 891, 927, 466, 457, 6399 #### [facility] [place] [address] Childcare Teacher: Bert Musa MD CO2 [Moles/Vol] 28 mmol/L Normal 20-32 [facility] Comment on above: Performed By: #### 1 0231, 7573, 891, 927, 466, 457, 6399 #### [facility] [place] [address] Childcare Teacher: Bert Musa MD Creatinine [Mass/Vol] 0.83 mg/dL Normal 0.70-1.[address] [facility] Comment on above: Performed By: #### 1 0231, 7573, 891, 927, 466, 457, 6399 #### [facility] [place] [address] Childcare Teacher: Bert Musa MD GFR/1.73 sq M.predicted among non-blacks MDRD (S/P/Bld) [Vol rate/Area] 87 mL/min/{1.73_m2} Normal > OR = 60 [facility] Comment on above: Performed By: #### 1 0231, 7573, 891, 927, 466, 457, 6399 #### [facility] [place] [address] Childcare Teacher: Bert Musa MD Globulin (S) [Mass/Vol] 2.6 g/dL Normal 1.9-3.7 [facility] Comment on above: Performed By: #### 1 0231, 7573, 891, 927, 466, 457, 6399 #### [facility] [place] [address] Childcare Teacher: Bert Musa MD Glucose [Mass/Vol] 102 mg/dL High 65-99 [facility] Comment on above: Result Comment: Fasting reference interval For someone without known diabetes, a glucose value between 100 and 125 mg/dL is consistent with prediabetes and should be confirmed with a follow-up test. Performed By: #### 1 0231, 7573, 891, 927, 466, 457, 6399 #### [facility] [place] [address] Childcare Teacher: Bert Musa MD Potassium [Moles/Vol] 4.3 mmol/L Normal 3.5-5.[address] [facility] [address] [facility] Comment on above: Performed By: #### 1 0231, 7573, 891, 927, 466, 457, 6399 #### [facility] [place] [address] Childcare Teacher: Bert Musa MD Protein [Mass/Vol] 6.5 g/dL Normal 6.1-8.1 [facility] Comment on above: Performed By: #### 1 0231, 7573, 891, 927, 466, 457, 6399 #### [facility] [place] [address] Childcare Teacher: Bert Musa MD Sodium [Moles/Vol] 138 mmol/L Normal 135-146 [facility] Comment on above: Performed By: #### 1 0231, 7573, 891, 927, 466, 457, 6399 #### [facility] [place] [address] Childcare Teacher: Bert Musa MD Urea nitrogen [Mass/Vol] 18 mg/dL Normal 7-25 [facility] Comment on above: Performed By: #### 1 0231, 7573, 891, 927, 466, 457, 6399 #### [facility] [address] [address] Childcare Teacher: Bert Musa MD FERRITINon 11-03-2024 Ferritin [Mass/Vol] 156 ng/mL Normal 24-380 [facility] Comment on above: Performed By: #### 1 0231, 7573, 891, 927, 466, 457, 6399 #### [facility] [place] [address] Childcare Teacher: Bert Musa MD FOLATE, SERUMon 11-03-2024 Folate [Mass/Vol] ng/mL Normal [facility] Comment on above: Result Comment: Refe rence Range Low: <3.4 Borderline: 3.4-5.4 Normal: >5.4 Performed By: #### 1 0231, 7573, 891, 927, 466, 457, 6399 #### [facility] [place] [address] Childcare Teacher: Bert Musa MD IRON AND TOTAL IRON BINDING CAPACITYon 11-03-2024 % SATURATION 61 % (calc) High 20-48 [facility] Comment on above: Performed By: #### 1 0231, 7573, 891, 927, 466, 457, 6399 #### [facility] [place] [address] Childcare Teacher: Bert Musa MD IRON BINDING CAPACITY 270 mcg/dL (calc) Normal 250-425 [facility] Comment on above: Performed By: #### 1 0231, 7573, 891, 927, 466, 457, 6399 #### [facility] [place] [address] Childcare Teacher: Bert Musa MD IRON, TOTAL 164 mcg/dL Normal 50-180 [facility] Comment on above: Performed By: #### 1 0231, 7573, 891, 927, 466, 457, 6399 #### [facility] [place] [address] Childcare Teacher: Bert Musa MD TRANSFERRINon 11-03-2024 Transferrin [Mass/Vol] 204 mg/dL Normal 188-341 [facility] Comment on above: Performed By: #### 1 0231, 7573, 891, 927, 466, 457, 6399 #### [facility] [place] [address] Childcare Teacher: Bert Musa MD VITAMIN B12on 11-03-2024 Cobalamin (Vitamin B12) [Mass/Vol] 908 pg/mL Normal 200-1100 [facility] Comment on above: Result Comment: A duplicate report has been faxed to the following: Faxed to: [phone] on: 11/03/24 14:55 Performed By: #### 1 0256 #### [facility] [place] [address] Childcare Teacher: Bert Musa MD HEPATIC FUNCTION PANEL Albumin [Mass/Vol] 3.8 g/dL Normal 3.6-5.1 [facility] Comment on above: Performed By: #### 1 0256 #### [facility] [place] [address] Childcare Teacher: Bert Musa MD Albumin/Globulin [Mass ratio] 1.4 {ratio} Normal 1.0-2.5 [facility] Comment on above: Performed By: #### 1 0256 #### [facility] [place] [address] Childcare Teacher: Bert Musa MD ALP [Catalytic activity/Vol] 99 U/L Normal 35-144 [facility] Comment on above: Performed By: #### 1 0256 #### [facility] [place] [address] Childcare Teacher: Bert Musa MD ALT [Catalytic activity/Vol] 12 U/L Normal 9-46 [facility] Comment on above: Performed By: #### 1 0256 #### [facility] [place] [address] Childcare Teacher: Bert Musa MD AST [Catalytic activity/Vol] 17 U/L Normal 10-35 [facility] Comment on above: Performed By: #### 1 0256 #### [facility] [place] [address] Childcare Teacher: Bert Musa MD Bilirubin [Mass/Vol] 0.4 mg/dL Normal 0.2-1.2 [facility] Comment on above: Performed By: #### 1 0256 #### [facility] [place] [address] Childcare Teacher: Bert Musa MD BILIRUBIN, INDIRECT 0.3 mg/dL (calc) Normal 0.2-1.2 [facility] Comment on above: Performed By: #### 1 0256 #### [facility] [place] [address] Childcare Teacher: Bert Musa MD Bilirubin.indirect [Mass/Vol] 0.1 mg/dL Normal < OR = 0.2 [facility] Comment on above: Performed By: #### 1 0256 #### [facility] [place] [address] Childcare Teacher: Bert Musa MD Globulin (S) [Mass/Vol] 2.7 g/dL Normal 1.9-3.7 [facility] Comment on above: Performed By: #### 1 0256 #### [facility] [place] [address] Childcare Teacher: Bert Musa MD Protein [Mass/Vol] 6.5 g/dL Normal 6.1-8.1 [facility] Comment on above: Performed By: #### 1 0256 #### [facility] [place] [address] Childcare Teacher: Bert Musa MD Anesthesia Postprocedure Anastacia rogers 09-27-2024 [employer] Rails Consultant Authentication Interface Message Text Anesthesia Postoperative Assessment: Vital Signs (most recent): BP 111/56 (BP Location: left arm) Pulse 65 Temp 36.1 ???C (96.9 ???F) (Temporal) Resp 20 SpO2 94% Anesthesia Post Evaluation Level of consciousness: awake Post-procedure exam normal. Body temperature, hydration status, PONV and pain evaluated and addressed. Pain management: adequate Hydration status: normal PONV:No nausea/vomiting reported Cardiopulmonary status stable Respiratory status: acceptable Cardiovascular status: acceptable ANESTHESIA NOTABLE EVENTS: No notable events documented. Normal [facility] Anesthesia Preprocedure Eval uationon 09-27-2024 Ruby On Rails Consultant Authentication Interface Message Text ASA: 3 No history of anesthetic complications NPO status: Greater than 8 hours Past Medical History and Review of Systems Pulmonary - negative ROS Dental ROS (+) teeth problems missing Endo (+) hypothyroidism Neuro/Psych - negative ROS Cardiovascular - negative ROS (+) Surgical risk: low; Cardiac condition: no apparent GI/Hepatic/Renal (+) liver disease Heme/Other - negative ROS Other ROS: Past Medical History: Diagnosis Date Actinic keratosis Basal cell carcinoma GERD (gastroesophageal reflux disease) History of being hospitalized 05/04/2024 Acute Gangrenous Cholecystitis with Perforation, Anemia Hypothyroidism (CMS/HCC) Past Surgical History: Procedure Laterality Date CHOLECYSTECTOMY 05/05/[address] GUIDED CRYOABLATION RENAL RIGHT Right 05/22/2024 CT GUIDED CRYOABLATION RENAL RIGHT 05/22/2024 FOOT SURGERY Bilateral 1994 bone spur removal surgery - Dr. Cifuentes GANGLION CYST EXCISION Right 09/13/2018 wrist Physical Exam Airway Mallampati: II TM distance: Adequate Micrognathia: Not present Jaw opening: Adequate Neck flexion: Adequate Dental PE (+) missing teeth Pulmonary - pulmonary exam normal Comment: Chest clear to auscultation bilaterally Cardiovascular - cardiovascular exam normal Comment: RRR with S1S2; no murmurs, gallops, or rubs Neuro - neurological exam normal Comment: Awake, alert, oriented, No motor deficits and sensation grossly intact Plan Anesthesia plan: MAC; (NC) Anesthesia risks / alternatives discussed pre-op Questions answered / anesthesia plan accepted Past medical history, surgical history, allergies, and medications reviewed. Pertinent laboratory tests, EKG, imaging, and consults reviewed and I have personally seen and evaluated the patient, repeating godinez portions of the history and physical examination. Attestation: Anesthesia options were discussed with the patient and/or legal sales representative public utilities. The risks, benefits and alternatives were reviewed. Questions regarding anesthesia were answered. Patient and/or legal sales representative public utilities knows such anesthetics and procedures may be performed by Resident physicians, Certified Anesthesiologist Assistants, or Certified Nurse Anesthetists under the supervision of a physician. The patient /or the patient's legal sales representative public utilities agree with the plan for anesthesia. MHPATFORM Normal [facility] Anesthesia Transfer Of Careo n 09-27-2024 Ruby On Rails Consultant Authentication Interface Message Text Patient taken to PACU. Patient was awake, comfortable, and stable on arrival. Anesthesia Transfer of Care Note Past Medical History: Medical History[1] Sleep Apnea/Positive STOP-BANG: No Problem List: Problem List[2] Past Surgical History: Review of patient's past surgical history indicates: ENDOSCOPIC RETROGRADE CHOLANGIOPANCREATOGRAPHY (07/26/2024) Procedure: ERCP; Surgeon: Rajendra Reyna MD; Location: [facility]; Service: Gastroenterology Allergies: Penicillins Basic Operating Room Facts: Surgeon(s): Rajendra Reyna MD Anesthesiologist: Danial Farr MD CAA: Katie Sosa CAA ERCP Intraoperative Events: No acute event ASA: 3 EBL: 0 mL Urine Not documented Lactated Ringers and NaCl 0.9%: Fluid Totals (Filter: LR and NaCl 0.9% Medications Shown) Medication Calculated Total NaCl 0.9% 100 mL / 1 bag Cell Saver: Not documented Blood Volume Values: Blood Products None MTP Blood: MTP PRBC: Not documented MTP FFP: Not documented MTP PLT: Not documented MTP Cryo: Not documented MTP Whole Blood: Not documented Current Vasoactive Medications: {Vasoactive Medications: None Lines, Drains, Airways Peripheral IV Access: 09/27/24 1008 22 gauge Posterior;Right Hand (Active) Site Assessment WNL 09/27/24 1137 Infusion Status Port #1 Capped;Patent;Positive blood return 09/27/24 1004 Airway Adjunct: Non-Rebreather (Active) Airway Insertion Details * No LDAs found * All non-working IVs have been removed: N/A Laboratory Data: CBC (last 3 years, up to 8 values) 05/23/2024 05/22/2024 05/21/2024 4:42 AM 1:34 AM 2:34 PM WBC 11.1 11.9 12.3 RBC 3.37 3.50 3.42 Hgb 7.5 8.0 7.9 Hct 24.9 26.1 25.4 MCV 74 75 75 RDW 20.5 19.8 20.0 Plt 297 282 299 BMP (last 3 years, up to 8 values) 05/23/2024 05/22/2024 05/21/2024 4:42 AM 1:34 AM 2:34 PM Na 136 138 138 K 3.7 3.8 4.3 Cl 103 103 102 CO2 25 26 27 Gap 12 13 13 Glu 109 123 115 BUN 11 13 11 Cr 0.71 0.74 0.73 Ca 7.4 8.0 8.2 eGFR 92 91 91 Basic Metabolic Panel No lab values to display. INR (no units) Date Value 05/22/2024 1.18 (H) 05/21/2024 1.14 (H) No result for BNP LFT's (last 3 years, up to 8 values) No lab values to display. Arterial Blood Gases None Hand off Completed: Yes 1. The patient was identified. 2. Pertinent medical history was relayed. 3. A brief discussion was had about any pertinent surgical/ procedural issues. 4. Intraoperative/ anesthetic management issue and concerns were discussed. 5. Plans for the early post-operative period relayed. 6. An opportunity for questions and acknowledgment of understanding of the report was received. TRISTAN Wan [1] No past medical history on file. [2] Patient Active Problem List Diagnosis Code Postprocedural intraabdominal abscess (HCC) T81.43XA, K65.1 Normal [facility] OP Noteon 09-27-2024 Ruby On Rails Consultant Authentication Interface Message Text Valencia Brooks 84 year old Surgical Contact Serial Number: [id number] Location: ENDO 05 Date: 09/27/2024 CENTER CUSTOMER SERVICE ASSOCIATE: Rajendra Reyna MD ATTENDING:Rajendra Reyna MD Procedure(s): ERCP INSTRUMENT: Scope #[id number] SEDATION: Anesthesia Assisted Pre-Op Diagnosis Codes: * Bile duct abnormality [K83.9] INDICATIONS: This is a 84 year old male with history of bile leak. Patient verbalized understanding. While monitoring the patient with continuous use of P, BP, O2 and EKG, therapeutic duodenoscope passed to second portion of duodenum under direct visualization without difficulty. The previously placed bile duct stent was seen in place and was removed with an endoscopic snare. Ampulla placed en face and appeared normal. CBD was selectively cannulated and injection of contrast revealed a normal caliber CBD without filling defects or mass effect. CHD and intra-hepatic ducts were normal. Cystic duct takeoff was visualized and was normal. A 9mm extraction balloon was used to sweep the duct. Sludge was removed. One stone was removed. Occlusion cholangiogram was performed and was normal. Bile leak. AG PATH SPECIMEN SENT: None. SPECIMEN: None PHOTOGRAPH TAKEN: Yes. COMPLICATIONS DURING PROCEDURE: None EBL (estimated blood loss): None. IMPRESSION: 1. Plastic bile duct stent removal. 2. Bile duct sludge extraction. 3. Bile duct stone removal. RECOMMENDATIONS: 1. Watch for signs of bleeding, perforation, cholangitis and pancreatitis. 2. F/U with PCP. 3. No further recommendations at this time. CC: Primary Care/Referring Physician(s): No primary care provider on file. PERSON COMPLETING NOTE: Rajendra Reyna MD 09/27/2024 at 11:26 AM Patient meets criteria for discharge/transfer: Rajendra Reyna MD [place] [facility] No Panel Informationon 08-23 Type of biopsy: de paz ential Informed consent: discussed and consent obtained Informed [...] taken Amount of lidocaine used: 1.0 cc [facility] Trauma Office/Clinic Noteon 08-02-2024 Trauma Office/Clinic Note Trauma Office/Clinic Note HPI Staff Valencia is an 83 y.o. male here for wound check Patient presented to [facility] with acute cholecystitis then transferred to [facility] on 05/05/2024 s/p Lap cholecystectomy done 05/05/2024- KELVIN drain placed Last EGS clinic visit- ongoing bile leak and IR guided drain placement ERCP done 07/26/24 Today patient states he is doing well. No drainage overnight. History of Present Illness Valencia Brooks is an 83 year old male known to our service s/p laparoscopic subtotal cholecystectomy 05/05/[address] Hinton who re-presented with abdominal pain/syncope and was found to have fluid collection in the gallbladder fossa. He was transferred to [facility] and underwent IR guided drain placement. Patient was last seen in clinic on 06/23/2024 at which time he was noted to have persistent drainage from his IR drain, measuring approximately 100-200 cc of bilious output. Given persistent output, he was referred to Dr. Reyna, GI, at [facility] for evaluation. Patient presents to clinic today for repeat evaluation. He reports he was seen by Dr. Reyna at [facility] and underwent ERCP and biliary stent placement on 07/26/2024. He reports since that time he has noted a significant decrease in the drain output. His who is present with him in clinic today reports the drain output has significantly decreased since his procedure on 07/26/2024 and the output is much clearer than it had been. Patient denies any fevers, chills, nausea, vomiting, diarrhea, constipation. He denies any abdominal pain. He reports he has been tolerating PO intake without difficulty. He does report frustration with the drain as it gets in the way of him completing his chores/at home responsibilities. He does report follow up appointment with Dr. Reyna in September for stent-removal. Drain output reviewed over the past week and has significantly decreased. 30-70 mL daily over the past week. Review of Systems PHQ Score Initial Depression Screen Score: 0 SCORE Constitutional: no fever, no chills, no sweats, no weakness Respiratory: no shortness of breath, no cough, no orthopnea, no wheezing Cardiovascular: no chest pain, no palpitations, no edema GI: no nausea, no vomiting, no diarrhea, no constipation, no abdominal pain Additional ROS info: Except as noted in the above Review of Systems and in the History of Present Illness all other systems have been reviewed and are negative or noncontributory. Physical Exam Vitals & Measurements T: 36.4 ???C(Oral) HR: 72(Peripheral) BP: 127/62 SpO2: 98% HT: 69 in HT: 175 cm WT: 174.165 lb WT: 79 kg BMI: 25.8 Constitutional: Sitting in chair in exam room. Appears comfortable, in NAD. HEENT: Normocephalic, atraumatic. Cardiovascular: Regular rate and rhythm. Extremities warm and well perfused Pulmonary/Chest: Breathing comfortably on room air. No audible wheezing, rales or rhonchi. Abdominal: Soft. Non-distended. There is no tenderness to palpation. Well healed lap sites. IR drain to RUQ with no surrounding erythema, warmth or drainage. Drain tubing and bag are stained brown but IR drain flushed and revealed non-bilious output when gently aspirated. Extremities: SANTANA x4. No peripheral edema Neurological: Awake, alert, oriented x3. SANTANA x 4 with no focal motor or sensory deficits Skin: Warm and dry Assessment/Plan Valencia Brooks is an 83 year old male s/p laparoscopic subtotal cholecystectomy 05/05/[address] Hinton who re-presented with abdominal pain/syncope and was found to have fluid collection in the gallbladder fossa. He was transferred to [facility] and underwent IR guided drain placement. Patient with persistent bile leak so evaluated by GI on 07/26 with ERCP at which time biliary stent was placed. Since procedure patient's IR drain output has cleared, is no longer bilious and volume has decreased, consistent with resolved leak. - IR drain output volume and characteristics were reviewed with Dr. Hinton - IR drain was removed without difficulty in the office today. Patient tolerated the procedure well - Continue regular diet - Follow up with Dr. Renya at [facility], as scheduled in September for biliary stent removal - Routine EGS follow up not indicated, follow up PRN should any issues/concerns arise - Return precautions discussed Randi Corbin APRN-PRINCIPAL GIFTS OFFICER Ext: [phone], available Wednesday-Wednesday 7am-5pm Trauma Surgery/Surgical Critical Care/Acute Care Surgery *For urgent issues arising after 5PM during the week or on Sundays, please page the trauma/acute care surgery attending ruby on rails consultant. Problem List/Past Medical History Ongoing Acquired hypothyroidism Basal cell carcinoma of truncal skin Cervical spondylosis without myelopathy Chronic GERD Chronic insomnia Lentiginosis Lipoprotein deficiency disorder Microcytic anemia Seborrheic keratosis Historical No qualifying data Procedure/Surgical History Cholecystectomy (05/05/2024). Medications aspirin 81 mg (more content not included)... Normal [facility] Comment on above: Result Comment: Elec tronically Signed By: Shaquille NG, Randi Chino\.br\Date and Time Signed: 08/02/24 17:51 EDT\.br\Electronically Co-Signed By: Bella LEONARD, Rosi Chino\.br\Date and Time Co-Signed: 08/02/24 18:02 EDT Anesthesia Postprocedure Anastacia luationon 07-26-2024 Ruby On Rails Consultant Authentication Interface Message Text Anesthesia Postoperative Assessment: Vital Signs (most recent): BP 106/61 Pulse 78 Temp 36.1 ???C (97 ???F) (Temporal) Resp 14 SpO2 99% Anesthesia Post Evaluation Level of consciousness: awake Post-procedure exam normal. Body temperature, hydration status, PONV and pain evaluated and addressed. Pain management: adequate Hydration status: normal PONV:No nausea/vomiting reported Cardiopulmonary status stable Respiratory status: acceptable Cardiovascular status: acceptable ANESTHESIA NOTABLE EVENTS: No notable events documented. Normal [facility] Anesthesia Preprocedure Eval uationon 07-26-2024 Ruby On Rails Consultant Authentication Interface Message Text ASA: 2 Past Medical History and Review of Systems Pulmonary - negative ROS Dental Endo (+) hypothyroidism Neuro/Psych - negative ROS Cardiovascular - negative ROS (+) Surgical risk: low; Cardiac condition: GI/Hepatic/Renal (+) GERD Heme/Other - negative ROS Physical Exam Airway Mallampati: II TM distance: Adequate Jaw opening: Adequate Dental Pulmonary - pulmonary exam normal Comment: Chest clear to auscultation bilaterally Cardiovascular - cardiovascular exam normal Comment: RRR with S1S2; no murmurs, gallops, or rubs Neuro - neurological exam normal Comment: Awake, alert, oriented, No motor deficits and sensation grossly intact Plan Anesthesia plan: MAC; Anesthesia risks / alternatives discussed pre-op Questions answered / anesthesia plan accepted Past medical history, surgical history, allergies, and medications reviewed. Pertinent laboratory tests, EKG, imaging, and consults reviewed and I have personally seen and evaluated the patient, repeating godinez portions of the history and physical examination. Attestation: Anesthesia options were discussed with the patient and/or legal sales representative public utilities. The risks, benefits and alternatives were reviewed. Questions regarding anesthesia were answered. Patient and/or legal sales representative public utilities knows such anesthetics and procedures may be performed by Resident physicians, Certified Anesthesiologist Assistants, or Certified Nurse Anesthetists under the supervision of a physician. The patient /or the patient's legal sales representative public utilities agree with the plan for anesthesia. MHPATFORM Past Medical History: Diagnosis Date Actinic keratosis Basal cell carcinoma GERD (gastroesophageal reflux disease) History of being hospitalized 05/04/2024 Acute Gangrenous Cholecystitis with Perforation, Anemia Hypothyroidism ([facility]/HCC) Past Surgical History: Procedure Laterality Date CHOLECYSTECTOMY 05/05/[address] GUIDED CRYOABLATION RENAL RIGHT Right 05/22/2024 CT GUIDED CRYOABLATION RENAL RIGHT 05/22/2024 FOOT SURGERY Bilateral 1994 bone spur removal surgery - Dr. Cifuentes GANGLION CYST EXCISION Right 09/13/2018 wrist Normal [facility] Anesthesia Transfer Of Careo n 07-26-2024 Ruby On Rails Consultant Authentication Interface Message Text Patient taken to PACU. Patient was drowsy, comfortable, and stable on arrival. Anesthesia Transfer of Care Note Past Medical History: No past medical history on file. Sleep Apnea/Positive STOP-BANG: No Problem List: Patient Active Problem List: Postprocedural intraabdominal abscess (HCC) [T81.43XA, K65.1] Past Surgical History: There is no previous surgical history on file. Allergies: Penicillins Basic Operating Room Facts: Surgeon(s): Rajendra Reyna MD Anesthesiologist: Arslan Sorto MD CAA: Harish Burgos CAA; Ekaterina Ballesteros CAA Anesthesia Student: Shelbie Kumar ERCP Intraoperative Events: No acute event ASA: 2 EBL: Not documented Urine Not documented Lactated Ringers and NaCl 0.9%: Fluid Totals (Filter: LR and NaCl 0.9% Medications Shown) Medication Calculated Total sodium chloride 0.9 % iv infusion 250 mL / 1 bag Cell Saver: Not documented Blood Volume Values: Blood Products None MTP Blood: MTP PRBC: Not documented MTP FFP: Not documented MTP PLT: Not documented MTP Cryo: Not documented MTP Whole Blood: Not documented Current Vasoactive Medications: {Vasoactive Medications: None Lines, Drains, Airways Peripheral IV Access: 07/26/24732 22 gauge Right;Posterior Hand (Active) Site Assessment WNL;Dressing intact 07/26/24732 Infusion Status Port #1 Patent;Positive blood return;Capped 07/26/24732 Airway Adjunct: (Active) Airway Insertion Details * No LDAs found * All non-working IVs have been removed: Yes Laboratory Data: CBC (last 3 years, up to 8 values) 05/23/2024 05/22/2024 05/21/2024 4:42 AM 1:34 AM 2:34 PM WBC 11.1 11.9 12.3 RBC 3.37 3.50 3.42 Hgb 7.5 8.0 7.9 Hct 24.9 26.1 25.4 MCV 74 75 75 RDW 20.5 19.8 20.0 Plt 297 282 299 BMP (last 3 years, up to 8 values) 05/23/2024 05/22/2024 05/21/2024 4:42 AM 1:34 AM 2:34 PM Na 136 138 138 K 3.7 3.8 4.3 Cl 103 103 102 CO2 Gap 12 13 13 Glu 109 123 115 BUN 11 13 11 Cr 0.71 0.74 0.73 Ca 7.4 8.0 8.2 eGFR 92 91 91 Basic Metabolic Panel No lab values to display. INR (no units) Date Value 05/22/2024 1.18 (H) 05/21/2024 1.14 (H) No result for BNP LFT's (last 3 years, up to 8 values) No lab values to display. Arterial Blood Gases None Hand off Completed: Yes 1. The patient was identified. 2. Pertinent medical history was relayed. 3. A brief discussion was had about any pertinent surgical/ procedural issues. 4. Intraoperative/ anesthetic management issue and concerns were discussed. 5. Plans for the early post-operative period relayed. 6. An opportunity for questions and acknowledgment of understanding of the report was received. TRISTAN Cervantes Normal [facility] OP Noteon 07-26-2024 Ruby On Rails Consultant Authentication Interface Message Text Valencia Brooks 83 year old Surgical Contact Serial Number: [id number] Location: [facility] Date: 07/26/2024 CENTER CUSTOMER SERVICE ASSOCIATE: Rajendra Reyna MD ATTENDING:Rajendra Reyna MD Procedure(s): ERCP INSTRUMENT: Scope #[id number] SEDATION: Anesthesia Assisted Pre-Op Diagnosis Codes: * Bile duct abnormality [K83.9] INDICATIONS: This is a 83 year old male with bile leak. Patient verbalized understanding. While monitoring the patient with continuous use of P, BP, O2 and EKG, therapeutic duodenoscope passed to second portion of duodenum under direct visualization without difficulty. Ampulla placed en face and appeared normal. CBD was selectively cannulated and injection of contrast revealed a normal caliber CBD without filling defects or mass effect. CHD and intra-hepatic ducts were normal. The cystic duct had a low take off. A biliary sphincterotomy was then performed. This was successful. An occlusion cholangiogram was then performed. The cystic duct remnant was opacified. No evidence of a bile leak was visualized. Balloon sweep was then performed. Nothing was removed. One 10Fr x 7cm plastic stent was placed 6cm into the bile duct. This was successful. The stomach was then decompressed and the scope withdrawn from the patient. Bile leak. AG PATH SPECIMEN SENT: Yes. SPECIMEN: None PHOTOGRAPH TAKEN: Yes. COMPLICATIONS DURING PROCEDURE: None EBL (estimated blood loss): None. IMPRESSION: 1. Previously placed RUQ drain seen in proper position. 2. Cystic duct remnant opacified. 3. No evidence of bile leak. 4. Biliary sphincterotomy. 5. Plastic bile duct stent placement (10Fr x 7cm). RECOMMENDATIONS: 1. Watch for signs of bleeding, perforation, cholangitis and pancreatitis. 2. F/U with PCP. 3. Repeat ERCP for stent removal in 8 weeks. 4. Monitor RUQ drain output. 5. Discussed with patient in detail. CC: Primary Care/Referring Physician(s): No primary care provider on file. PERSON COMPLETING NOTE: Rajendra Reyna MD 07/26/2024 at 8:52 AM ERCP Radiology Supervision AND Interpretation [employer] 990 Elite Tot # spots: 7 Tot fluoro time: 3.4mins Tot rad dose: 78.57mGy ERCP Radiology findings: BD alone: RUQ drain in place. Normal cholangiogram. Stent placement. Impression: RUQ drain in place. Normal cholangiogram. Stent placement. Interpreted by: Rajendra Reyna MD Patient meets criteria for discharge/transfer: Rajendra Reyna MD Normal [facility] CBC w/ Auto Diffon 5 Anisocytosis Ql (Bld) PRESENT Invalid Interpretation Code [facility] Comment on above: Performed By: #### 2 [id number] #### [facility] [address] [place] [address] Basophils/100 WBC (Bld) 1.9 % Normal 0.0-2.0 [facility] Comment on above: Performed By: #### 2 [id number] #### [facility] [address] [place] [address] Basophils/Leukocytes Auto (Bld) [Pure # fraction] 0.1 E9/L Normal 0.0-0.2 [facility] Comment on above: Performed By: #### 2 [id number] #### [facility] [address] [place] [address] Eosinophils (Bld) [#/Vol] 0.2 E9/L Normal 0.0-0.5 [facility] Comment on above: Performed By: #### 2 [id number] #### [facility] [address] [place] [address] Eosinophils/100 WBC (Bld) 2.5 % Normal 0.0-8.0 [facility] Comment on above: Performed By: #### 2 [id number] #### [facility] [address] [place] [address] Erythrocyte distribution width (RBC) [Ratio] 19.1 % High 10.9-14.2 [facility] Comment on above: Performed By: #### 2 [id number] #### [facility] [address] [place] [address] Hematocrit (Bld) [Volume fraction] 32.2 % Low 37.7-49.0 [facility] Comment on above: Performed By: #### 2 [id number] #### [facility] [address] [place] [address] Hemoglobin (Bld) [Mass/Vol] 10.3 g/dL Low 13.5-17.5 [facility] Comment on above: Performed By: #### 2 [id number] #### [facility] [address] [place] [address] Hypochromia Auto Ql (Bld) PRESENT Invalid Interpretation Code [facility] Comment on above: Performed By: #### 2 [id number] #### [facility] [address] [place] [address] Lymphocytes (Bld) [#/Vol] 1.8 E9/L Normal 1.0-4.0 [facility] Comment on above: Performed By: #### 2 [id number] #### [facility] [address] [place] [address] Lymphocytes/100 WBC (Bld) 27.4 % Normal 14.0-50.0 [facility] Comment on above: Performed By: #### 2 [id number] #### [facility] [address] [place] [address] MCH (RBC) [Entitic mass] 23.5 pg Low 27.0-34.0 [facility] Comment on above: Performed By: #### 2 [id number] #### [facility] [address] [place] [address] MCHC (RBC) [Mass/Vol] 32.1 g/dL Normal 31.4-36.0 [facility] Comment on above: Performed By: #### 2 [id number] #### [facility] [address] [place] [address] MCV (RBC) [Entitic vol] 73.2 fL Low 80.0-100.0 [facility] Comment on above: Performed By: #### 2 [id number] #### [facility] [address] [place] [address] Microcytes Ql (Bld) PRESENT Invalid Interpretation Code [facility] Comment on above: Performed By: #### 2 [id number] #### [facility] [address] [place] [address] Monocytes (Bld) [#/Vol] 0.7 E9/L Normal 0.2-1.0 [facility] Comment on above: Performed By: #### 2 [id number] #### [facility] [address] [place] [address] Neutrophils (Bld) [#/Vol] 3.6 E9/L Normal 2.0-7.5 [facility] Comment on above: Performed By: #### 2 [id number] #### [facility] [address] [place] [address] Neutrophils/100 WBC (Bld) 56.5 % Normal 36.0-75.0 [facility] Comment on above: Performed By: #### 2 [id number] #### [facility] [address] [place] [address] Platelet 152.0 E9/L Normal 150.0-500. 0 [facility] Comment on above: Performed By: #### 2 [id number] #### [facility] [address] [place] [address] Platelet mean volume (Bld) [Entitic vol] 9.6 fL Normal 6.4-10.8 [facility] Comment on above: Performed By: #### 2 [id number] #### [facility] [address] [place] [address] RBC (Bld) [#/Vol] 4.4 E12/L Normal 4.3-5.9 [facility] Comment on above: Performed By: #### 2 [id number] #### [facility] [address] [place] [address] RBC size Nom (Bld) SEE MORPHOLOGY Invalid Interpretation Code [facility] Comment on above: Performed By: #### 2 [id number] #### [facility] [address] [place] [address] WBC corrected for nucl RBC Auto (Bld) [#/Vol] 6.4 E9/L Normal 4.0-11.0 [facility] Comment on above: Performed By: #### 2 [id number] #### [facility] [address] [place] [address] CHEMISTRYOrdered By: SYSTEM SYSTEM on 07-18-2024 Albumin [Mass/Vol] 4.0 g/dL Normal 3.3 - 5.0 gm/dL [facility] Albumin/Globulin [Mass ratio] 1.3 {ratio} Normal 1.1 - 2.2 [facility] ALP [Catalytic activity/Vol] 88 [iU]/d Normal 21 - 98 Int._Unit/ L [facility] ALT No additional P-5'-P [Catalytic activity/Vol] 10 [iU]/d Normal 6 - 46 Int._Unit/ L [facility] Anion gap [Moles/Vol] 9 mmol/L Normal 6 - 16 mEq/L [facility] AST [Catalytic activity/Vol] 15 [iU]/d Normal 5 - 43 Int._Unit/ L [facility] Bilirubin [Mass/Vol] 0.4 mg/dL Normal 0.0 - 1 .1 mg/dL [facility] Calcium [Mass/Vol] 9.1 mg/dL Normal 8.9 - 11. 1 mg/dL [facility] Chloride [Moles/Vol] 102 mmol/L Normal 101 - 1 11 mmol/L [facility] CO2 [Moles/Vol] 29 mmol/L Normal 21 - 31 mmol/L [facility] Cobalamin (Vitamin B12) [Mass/Vol] 859 pg/mL Normal 50 - 1500 pg/mL [facility] Creatinine [Mass/Vol] 0.8 mg/dL Normal 0.5 - 1.3 mg/dL [facility] eGFR 88 mL/min/1.73 m2 Normal >=59mL/min /1.73 m2 [facility] Ferritin [Mass/Vol] 162 ng/mL Normal 24 - 336 ng/mL [facility] Folate [Mass/Vol] ng/mL Normal >=6.7ng/mL [facility] Globulin (S) [Mass/Vol] 3.0 g/dL Normal 1.4 - 4.0 gm/dL [facility] Glucose [Mass/Vol] 95 mg/dL Normal 55 - 199 mg/dL [facility] Iron [Mass/Vol] 145 ug/dL Normal 35 - 153 mcg/dL [facility] Iron binding capacity [Mass/Vol] 284 ug/dL Normal 250 - 400 mcg/dL [facility] Iron saturation [Mass fraction] 51 % High 20 - 50 % [facility] Potassium [Moles/Vol] 4.4 mmol/L Normal 3.5 - 5.3 mmol/L [facility] Protein [Mass/Vol] 7.0 g/dL Normal 6.0 - 7.8 gm/dL [facility] Sodium [Moles/Vol] 136 mmol/L Normal 135 - 145 mmol/L [facility] Transferrin [Mass/Vol] 203 mg/dL Normal 200 - 370 mg/dL [facility] Urea nitrogen [Mass/Vol] 17 mg/dL Normal 5 - 21 mg/dL [facility] Urea nitrogen/Creatinine [Mass ratio] 21 mg/mg High 10 - 20 [facility] CMPon 07-18-2024 Albumin [Mass/Vol] 4.0 g/dL Normal 3.3-5.0 [facility] Comment on above: Performed By: #### 2 [id number] #### [facility] [address] [place] [address] Albumin/Globulin (S) [Mass conc ratio] 1.3 Normal 1.1-2.2 [facility] Comment on above: Performed By: #### 2 [id number] #### [facility] [address] [place] [address] ALP [Catalytic activity/Vol] 88 Int._Unit/L Normal 21-98 [facility] Comment on above: Performed By: #### 2 [id number] #### [facility] [address] [place] [address] ALT No additional P-5'-P [Catalytic activity/Vol] 10 Int._Unit/L Normal 6-46 [facility] Comment on above: Performed By: #### 2 [id number] #### [facility] [address] [place] [address] Anion gap [Moles/Vol] 9 mmol/L Normal 6-16 [facility] Comment on above: Performed By: #### 2 [id number] #### [facility] [address] [place] [address] AST [Catalytic activity/Vol] 15 Int._Unit/L Normal 5-43 [facility] Comment on above: Performed By: #### 2 [id number] #### [facility] [address] [place] [address] Bilirubin [Mass/Vol] 0.4 mg/dL Normal 0.0-1.1 [facility] Comment on above: Performed By: #### 2 [id number] #### [facility] [address] [place] [address] Calcium [Mass/Vol] 9.1 mg/dL Normal 8.9-11.1 [facility] Comment on above: Performed By: #### 2 [id number] #### [facility] [address] [place] [address] Chloride [Moles/Vol] 102 mmol/L Normal 101-111 [facility] Comment on above: Performed By: #### 2 [id number] #### [facility] [address] [place] [address] CO2 [Moles/Vol] 29 mmol/L Normal 21-31 [facility] Comment on above: Performed By: #### 2 [id number] #### [facility] [address] [place] [address] Creatinine [Mass/Vol] 0.8 mg/dL Normal 0.5-1.3 [facility] Comment on above: Performed By: #### 2 [id number] #### [facility] [address] [place] [address] Globulin (S) [Mass/Vol] 3.0 g/dL Normal 1.4-4.0 [facility] Comment on above: Performed By: #### 2 [id number] #### [facility] [address] [place] [address] Glucose [Mass/Vol] 95 mg/dL Normal 55-199 [facility] Comment on above: Performed By: #### 2 [id number] #### [facility] [address] [place] [address] Potassium [Moles/Vol] 4.4 mmol/L Normal 3.5-5.3 [facility] Comment on above: Performed By: #### 2 [id number] #### [facility] [address] [place] [address] Protein [Mass/Vol] 7.0 g/dL Normal 6.0-7.8 [facility] Comment on above: Performed By: #### 2 [id number] #### [facility] [address] [place] [address] Sodium [Moles/Vol] 136 mmol/L Normal 135-145 [facility] Comment on above: Performed By: #### 2 [id number] #### [facility] [address] [place] [address] Urea nitrogen [Mass/Vol] 17 mg/dL Normal 5-21 [facility] Comment on above: Performed By: #### 2 [id number] #### [facility] [address] [place] [address] Urea nitrogen/Creatinine [Mass ratio] 21 No Units High 10-20 [facility] Comment on above: Performed By: #### 2 [id number] #### [facility] [address] [place] [address] Ferritinon 07-18-2024 Ferritin [Mass/Vol] 162 ng/mL Normal 24-336 [facility] Comment on above: Performed By: #### 2 [id number] #### [facility] [address] [place] [address] Folateon 07-18-2024 Folate [Mass/Vol] ng/mL Normal >=6.7 [facility] Comment on above: Performed By: #### 2 [id number] #### [facility] [address] [place] [address] HEMATOLOGYOrdered By: SYSTEM SYSTEM on 07-18-2024 Anisocytosis Ql (Bld) PRESENT *NA* (07/18/24 2:36 PM) Invalid Interpretation Code [facility] Basophils/100 WBC (Bld) 1.9 % Normal 0.0 - 2.0 % [facility] Basophils/Leukocytes Auto (Bld) [Pure # fraction] 0.1 E9/L Normal 0.0 - 0.2 E9/L [facility] Eosinophils (Bld) [#/Vol] 0.2 E9/L Normal 0.0 - 0.5 E9/L [facility] Eosinophils/100 WBC (Bld) 2.5 % Normal 0.0 - 8.0 % [facility] Erythrocyte distribution width (RBC) [Ratio] 19.1 % High 10.9 - 14.2 % [facility] Hematocrit (Bld) [Volume fraction] 32.2 % Low 37.7 - 49.0 % [facility] Hemoglobin (Bld) [Mass/Vol] 10.3 g/dL Low 13.5 - 17.5 gm/dL [facility] Hypochromia Auto Ql (Bld) PRESENT *NA* (07/18/24 2:36 PM) Invalid Interpretation Code [facility] Lymphocytes (Bld) [#/Vol] 1.8 E9/L Normal 1.0 - 4.0 E9/L [facility] Lymphocytes/100 WBC (Bld) 27.4 % Normal 14.0 - 50.0 % [facility] MCH (RBC) [Entitic mass] 23.5 pg Low 27.0 - 34.0 pg [facility] MCHC (RBC) [Mass/Vol] 32.1 g/dL Normal 31.4 - 36.0 gm/dL [facility] MCV (RBC) [Entitic vol] 73.2 fL Low 80.0 - 100.0 fL [facility] Microcytes Ql (Bld) PRESENT *NA* (07/18/24 2:36 PM) Invalid Interpretation Code [facility] Monocytes (Bld) [#/Vol] 0.7 E9/L Normal 0.2 - 1.0 E9/L [facility] Monocytes/100 WBC (Bld) 11.7 % Normal 4.0 - 14.0 % [facility] Neutrophils (Bld) [#/Vol] 3.6 E9/L Normal 2.0 - 7.5 E9/L [facility] Neutrophils/100 WBC (Bld) 56.5 % Normal 36.0 - 75.0 % [facility] Platelet 152.0 E9/L Normal 150.0 - 500.0 E9/L [facility] Platelet mean volume (Bld) [Entitic vol] 9.6 fL Normal 6.4 - 10.8 fL [facility] RBC (Bld) [#/Vol] 4.4 E12/L Normal 4.3 - 5.9 E12/L [facility] RBC size Nom (Bld) SEE MORPHOLOGY *NA* (07/18/24 2:36 PM) Invalid Interpretation Code Remisol Heme WBC corrected for nucl RBC Auto (Bld) [#/Vol] 6.4 E9/L Normal 4.0 - 11.0 E9/L Remisol Heme Ironon 07-18-2024 Iron [Mass/Vol] 145 microgram/dL Normal 35-153 [facility] Comment on above: Performed By: #### 2 [id number] #### [facility] [address] [place] [address] Iron Saturationon 07-18-2024 Iron binding capacity [Mass/Vol] 284 microgram/dL Normal 250-400 [facility] Comment on above: Performed By: #### 2 [id number] #### [facility] [address] [place] [address] Iron saturation [Mass fraction] 51 % High 20-50 [facility] Comment on above: Performed By: #### 2 [id number] #### [facility] [address] [place] [address] Transferrinon 07-18-2024 Transferrin [Mass/Vol] 203 mg/dL Normal 200-370 [facility] Comment on above: Performed By: #### 2 [id number] #### [facility] [address] [place] [address] Vit B12on 07-18-2024 Cobalamin (Vitamin B12) [Mass/Vol] 859 pg/mL Normal 50-1500 [facility] Comment on above: Performed By: #### 2 [id number] #### [facility] [address] [place] [address] eGFRon 07-18-2024 eGFR 88 mL/min/1.73 m2 Normal >=59 [facility] Comment on above: Performed By: #### 1 [id number] #### [facility] [address] [place] [address] Trauma Office/Clinic Noteon 07-10-2024 Trauma Office/Clinic Note Trauma Office/Clinic Note Chief Complaint 1 week follow up HPI Staff Valencia is an 83 y.o. male here for wound check Patient presented to [facility] with acute cholecystitis then transferred to [facility] on 05/05/2024 s/p Lap cholecystectomy done 05/05/2024- KELVIN drain placed Prior to in office follow up 05/17/2024 patient fell at home. KELVIN drain removed in office Advised to report to ED for evaluation of fall. Patient refused. He fell again same day and went to [facility] ER Admitted to [facility] services for abscess History of Present Illness 83-year-old male with history of subtotal cholecystectomy on 05/05/2024. 2 weeks later patient was seen in outside hospital after a fall/syncopal event and had CT scans which showed a gallbladder fossa abscess, patient was transferred to [facility] and had IR drain placed. Patient here for drain check. Patient ports minimal drainage into the bag, having difficulty with flushing and aspirating at home. Denies fevers or chills. Does have some redness and firmness around a laparoscopic site. No drainage. Review of Systems All organ systems are reviewed. Pertinent positive and negative findings as mentioned in the HPI. Physical Exam Vitals & Measurements T: 36.5 ???C(Oral) HR: 71(Peripheral) BP: 116/64 HT: 69 in HT: 175 cm WT: 76 kg WT: 167.551 lb BMI: 24.82 GENERAL: alert, pleasant, conversational. HEENT: normocephalic. oral mucosa moist. CARDIOVASCULAR: RRR. PULMONARY: CTAB. breathing comfortably on room air ABDOMINAL: abdomen is nontender., nondistended. Right sided upper lap site with mild erythema and some induration surrounding no fluctuance, no drainage. Right upper quadrant with IR drain in place, minimal draining to the bag. I was able to aspirate and flush, with aspiration able to aspirate 10 to 15 cc of bloody purulent drainage. EXTREMITIES: moves all extremities with equal strength NEUROLOGICAL: AxO x3 Assessment/Plan 83-year-old male with history of subtotal cholecystectomy on 05/05/2024. 2 weeks later patient was seen in outside hospital after a fall/syncopal event and had CT scans which showed a gallbladder fossa abscess, patient was transferred to [facility] and had IR drain placed. Patient here for drain check. -IR drain with minimal purulent change back today. Patient has not had any drainage into the bag at home, was able to aspirate purulent bloody drainage today in the office. Likely drainage is thick and not adequate draining IR drain, educated patient significant other on flushing and aspiration of the drain. Drain will remain in place, will follow in 1-2 weeks for recheck. -Given short course of Keflex for superficial skin infection around lap site -Otherwise patient is advancing as expected, tolerating regular diet, pain well-controlled, having regular bowel movements, afebrile vital signs are stable Mallorie Piper PA-C Trauma Surgery/Surgical Critical Care/Emergency General Surgery Problem List/Past Medical History Ongoing Acquired hypothyroidism Basal cell carcinoma of truncal skin Cervical spondylosis without myelopathy Chronic GERD Chronic insomnia Lentiginosis Lipoprotein deficiency disorder Microcytic anemia Seborrheic keratosis Historical No qualifying data Procedure/Surgical History Cholecystectomy (05/05/2024). Medications aspirin 81 mg oral capsule, 81 mg= [...] PRN Vitamin B12, 500 mcg, Oral, Daily Allergies naproxen (Swelling) penicillin (Rash, Unknown) Social History Tobacco Never (less than 100 in lifetime) Tobacco Use:. Never Smokeless Tobacco Use:. Cigarettes, Household tobacco concerns: No., 06/21/2024 Immunizations Vaccine Date Status influenza virus vaccine, inactivated 01/03/2024 Recorded influenza virus vaccine, inactivated 01/22/2023 Recorded influenza virus vaccine, inactivated 02/11/2022 Recorded diphtheria/pertussis, acel/tetanus adult 01/05/2022 Recorded pneumococcal 23-valent vaccine 01/05/2022 Recorded SARSCoV2 mRNA(cbhdcqofm-tioj-ymyehl ) vac 12/10/2021 Recorded SARSCoV2 mRNA(jwikrhxys-fmze-ivvgps ) vac 08/06/2021 Recorded influenza virus vaccine, inactivated 01/29/2021 Recorded SARS-CoV-2 (COVID-19) mRNA BNT-162b2 vax 01/29/2021 Recorded SARS-CoV-2 (COVID-19) mRNA BNT-162b2 vax 01/07/2021 Recorded zoster vaccine, inactivated 07/25/2020 Recorded zoster vaccine, inactivated 05/12/2020 Recorded influenza virus vaccine, inactivated 01/26/2020 Recorded influenza virus vaccine, inactivated 02/08/2019 Recorded pneumococcal 13-valent vaccine 12/23/2018 Recorded influenza virus vaccine, inactivated (more content not included)... Normal [facility] Comment on above: Result Comment: Elec tronically Signed By: Mallorie Piper PA-C\.br\Date and Time Signed: 06/23/24 14:32 EST\.br\Electronically Co-Signed By: Bella LEONARD, Rosi Chino\.br\Date and Time Co-Signed: 07/10/24 10:25 EDT Trauma Office/Clinic Noteon 06-26-2024 Trauma Office/Clinic Note Trauma Office/Clinic Note Chief Complaint Wound check HPI Staff Valencia is an 83 y.o. male here for IR drain abscess Patient presented to [facility] with acute cholecystitis then transferred to [facility] on 05/05/2024 s/p Lap cholecystectomy done 05/05/2024- KELVIN drain placed Prior to in office follow up 05/17/2024 patient fell at home. KELVIN drain removed in office Advised to report to ED for evaluation of fall. Patient refused. He fell again same day and went to [facility] ER Admitted to [facility] services for abscess Repeat CT done 06/05/2024 History of Present Illness 83-year-old male with history of subtotal cholecystectomy on 05/05/2024. 2 weeks later patient was seen in outside hospital after a fall/syncopal event and had CT scans which showed a gallbladder fossa abscess, patient was transferred to [facility] and had IR drain placed. Patient here for drain check. Patient reports minimal drainage into the bag, no fevers or chills, has been tolerating regular diet. Patient reports that he was seen in outside hospital within the last few days and had a CT scan performed, brought the disc with him. Concerned because there is still a small area of fluid collection even though the drain is not draining. Review of Systems All organ systems are reviewed. Pertinent positive and negative findings as mentioned in the HPI. Physical Exam Vitals & Measurements T: 36.4 ???C(Oral) HR: 80(Peripheral) BP: 138/71 HT: 69 in HT: 175 cm WT: 76 kg WT: 167.551 lb BMI: 24.82 GENERAL: alert, pleasant, conversational. HEENT: normocephalic. oral mucosa moist. CARDIOVASCULAR: RRR. PULMONARY: CTAB. breathing comfortably on room air ABDOMINAL: abdomen is nontender., nondistended. Right upper quadrant with IR drain in place, minimal draining to the bag. I was able to aspirate and flush, with aspiration able to aspirate 10 to 15 cc of bloody purulent drainage. EXTREMITIES: moves all extremities with equal strength NEUROLOGICAL: AxO x3 Assessment/Plan 83-year-old male with history of subtotal cholecystectomy on 05/05/2024. 2 weeks later patient was seen in outside hospital after a fall/syncopal event and had CT scans which showed a gallbladder fossa abscess, patient was transferred to [facility] and had IR drain placed. Patient here for drain check. -Was able to review images from outside hospital, there is an improvement but still small fluid collection in the gallbladder fossa. Patient has not had any drainage into the bag at home, was able to aspirate purulent bloody drainage today in the office. Likely drainage is thick and not adequate draining IR drain, educated patient significant other on flushing and aspiration of the drain. Drain will remain in place, will follow in 1-2 weeks for recheck. Mallorie Piper PA-C Trauma Surgery/Surgical Critical Care/Emergency General Surgery Follow-up No qualifying data available Problem List/Past Medical History Ongoing Acquired hypothyroidism Basal cell carcinoma of truncal skin Cervical spondylosis without myelopathy Chronic GERD Chronic insomnia Lentiginosis Lipoprotein deficiency disorder Microcytic anemia Seborrheic keratosis Historical No qualifying data Procedure/Surgical History Cholecystectomy (05/05/2024). Medications aspirin 81 mg oral capsule, 81 mg= [...] PRN Vitamin B12, 500 mcg, Oral, Daily Allergies naproxen (Swelling) penicillin (Rash, Unknown) Social History Tobacco Never (less than 100 in lifetime) Tobacco Use:. Never Smokeless Tobacco Use:. Cigarettes, Household tobacco concerns: No., 06/21/2024 Immunizations Vaccine Date Status influenza virus vaccine, inactivated 01/03/2024 Recorded influenza virus vaccine, inactivated 01/22/2023 Recorded influenza virus vaccine, inactivated 02/11/2022 Recorded diphtheria/pertussis, acel/tetanus adult 01/05/2022 Recorded pneumococcal 23-valent vaccine 01/05/2022 Recorded SARSCoV2 mRNA(jjwdxmcfu-afzm-gknqgm ) vac 12/10/2021 Recorded SARSCoV2 mRNA(ofqyufljn-qqbj-qtirhu ) vac 08/06/2021 Recorded influenza virus vaccine, inactivated 01/29/2021 Recorded SARS-CoV-2 (COVID-19) mRNA BNT-162b2 vax 01/29/2021 Recorded SARS-CoV-2 (COVID-19) mRNA BNT-162b2 vax 01/07/2021 Recorded zoster vaccine, inactivated 07/25/2020 Recorded zoster vaccine, inactivated 05/12/2020 Recorded influenza virus vaccine, inactivated 01/26/2020 Recorded influenza virus vaccine, inactivated 02/08/2019 Recorded pneumococcal 13-valent vaccine 12/23/2018 Recorded influenza virus vaccine, inactivated 01/24/2018 Recorded influenza virus vaccine, torsten (more content not included)... [facility] Comment on above: Result Comment: Elec tronically Signed By: Mallorie Piper PA-C\.br\Date and Time Signed: 06/23/24 14:27 EST\.br\Electronically Co-Signed By: Nikole LEONARD, Chris Sanchez\.br\Date and Time Co-Signed: 06/26/24 07:13 EST Copper Lvlon 06-23-2024 Copper [Mass/Vol] 74 microgram/dL Invalid Interpretation Code [id number] [facility] Comment on above: Result Comment: This test was developed and its performance characteristics determined by [facility]. It has not been cleared or approved by the Food and Drug Administration. Detection Limit = 5 Performed at: [facility] [address] [id number] MD Jamie Ho Performed By: #### 1 [id number] #### [facility] [address] [place] [address] Trauma Office/Clinic Noteon 06-23-2024 Trauma Office/Clinic Note Trauma Office/Clinic Note Chief Complaint Wound check HPI Staff Valencia is an 83 y.o. male here for wound check Patient presented to [facility] with acute cholecystitis then transferred to [facility] on 05/05/2024 s/p Lap cholecystectomy done 05/05/2024- KELVIN drain placed History of Present Illness Patient is an 83-year-old male who had a laparoscopic subtotal cholecystectomy done on May 05 of this year. At that time he had a KELVIN drain placed which was subsequently removed in follow-up clinic visits. After drain removal he Karthik presented to the emergency room and was found to have a fluid collection in the gallbladder fossa. He was then transferred to [facility] for IR guided drain placement. He presents today for routine follow-up and to evaluate removal of the drain. The patient continues to do well from surgery and reports that his energy and appetite are back to normal. He is able to do his daily chores and has been tolerating a regular diet without issue. He denies fevers, chills, nausea, vomiting, abdominal pain, and changes in bowel habits. He reports that his drain character was cloudy until about a week ago when it turned bilious. Since then it has been draining between 100-200 cc of bile per day. Physical Exam Vitals & Measurements HR: 76(Peripheral) BP: 127/60 HT: 69 in HT: 175 cm WT: 77 kg WT: 169.756 lb BMI: 25.14 General: Resting comfortably in chair, NAD CV: RRR Lungs: Unlabored respiration on room air Abdomen: Soft, nondistended, nontender, IR drain in the right upper quadrant with bilious output, no surrounding erythema Assessment/Plan 83-year-old male status post subtotal cholecystectomy on 05/05/2024, now with IR guided drain placement and ongoing bile leak -Given the subtotal colectomy it is likely that the cystic duct has recannulated and the patient is having a bile leak -The leak appears well-controlled with the IR guided drain as the patient is not having any abdominal pain and has been able to tolerate a diet without issue -I discussed these findings with the patient and his and explained to him what is the likely cause of the bile leak -I discussed this case with Dr. Reyna from gastroenterology at [facility] who will schedule in outpatient ERCP and likely stent placement -The patient will continue with the drain until after the ERCP -Follow-up in clinic after ERCP Clark Bass MD Follow-up No qualifying data available Problem List/Past Medical History Ongoing Acquired hypothyroidism Basal cell carcinoma of truncal skin Cervical spondylosis without myelopathy Chronic GERD Chronic insomnia Lentiginosis Lipoprotein deficiency disorder Microcytic anemia Seborrheic keratosis Historical No qualifying data Procedure/Surgical History Cholecystectomy (05/05/2024). Medications aspirin 81 mg oral capsule, 81 mg= [...] PRN Vitamin B12, 500 mcg, Oral, Daily Allergies naproxen (Swelling) penicillin (Rash, Unknown) Social History Tobacco Never (less than 100 in lifetime) Tobacco Use:. Never Smokeless Tobacco Use:. Cigarettes, Household tobacco concerns: No., 06/21/2024 Immunizations Vaccine Date Status influenza virus vaccine, inactivated 01/03/2024 Recorded influenza virus vaccine, inactivated 01/22/2023 Recorded influenza virus vaccine, inactivated 02/11/2022 Recorded diphtheria/pertussis, acel/tetanus adult 01/05/2022 Recorded pneumococcal 23-valent vaccine 01/05/2022 Recorded SARSCoV2 mRNA(kyhwwufuo-apat-pucsko ) vac 12/10/2021 Recorded SARSCoV2 mRNA(vxuepamdg-dydj-nhjhjr ) vac 08/06/2021 Recorded influenza virus vaccine, inactivated 01/29/2021 Recorded SARS-CoV-2 (COVID-19) mRNA BNT-162b2 vax 01/29/2021 Recorded SARS-CoV-2 (COVID-19) mRNA BNT-162b2 vax 01/07/2021 Recorded zoster vaccine, inactivated 07/25/2020 Recorded zoster vaccine, inactivated 05/12/2020 Recorded influenza virus vaccine, inactivated 01/26/2020 Recorded influenza virus vaccine, inactivated 02/08/2019 Recorded pneumococcal 13-valent vaccine 12/23/2018 Recorded influenza virus vaccine, inactivated 01/24/2018 Recorded influenza virus vaccine, inactivated 12/28/2016 Recorded zoster vaccine live 11/25/2015 Recorded pneumococcal 23-valent vaccine 12/25/2009 Recorded Normal [facility] Comment on above: Result Comment: Elec tronically Signed By: Kali LEONARD, Clark Page\.br\Date and Time Signed: 06/23/24 06:23 EST [facility] 06-21-2024 Occult blood panel (Stl) Negative Normal Negative [facility] Comment on above: Performed By: #### 2 [id number] #### [facility] [address] [place] [address] CBC w/ Auto Diffon 5 Basophils/100 WBC (Bld) 1.9 % Normal 0.0-2.0 [facility] Comment on above: Performed By: #### 2 [id number] #### [facility] [address] [place] [address] Basophils/Leukocytes Auto (Bld) [Pure # fraction] 0.1 E9/L Normal 0.0-0.2 [facility] Comment on above: Performed By: #### 2 [id number] #### [facility] [address] [place] [address] Eosinophils (Bld) [#/Vol] 0.1 E9/L Normal 0.0-0.5 [facility] Comment on above: Performed By: #### 2 [id number] #### [facility] [address] [place] [address] Eosinophils/100 WBC (Bld) 2.2 % Normal 0.0-8.0 [facility] Comment on above: Performed By: #### 2 [id number] #### [facility] [address] [place] [address] Erythrocyte distribution width (RBC) [Ratio] 19.8 % High 10.9-14.2 [facility] Comment on above: Performed By: #### 2 [id number] #### [facility] [address] [place] [address] Hematocrit (Bld) [Volume fraction] 31.5 % Low 37.7-49.0 [facility] Comment on above: Performed By: #### 2 [id number] #### [facility] [address] [place] [address] Hemoglobin (Bld) [Mass/Vol] 9.8 g/dL Low 13.5-17.5 [facility] Comment on above: Performed By: #### 2 [id number] #### [facility] [address] [place] [address] Hypochromia Auto Ql (Bld) PRESENT Invalid Interpretation Code [facility] Comment on above: Performed By: #### 2 [id number] #### [facility] [address] [place] [address] Lymphocytes (Bld) [#/Vol] 1.4 E9/L Normal 1.0-4.0 [facility] Comment on above: Performed By: #### 2 [id number] #### [facility] [address] [place] [address] Lymphocytes/100 WBC (Bld) 25.2 % Normal 14.0-50.0 [facility] Comment on above: Performed By: #### 2 [id number] #### [facility] [address] [place] [address] MCH (RBC) [Entitic mass] 23.2 pg Low 27.0-34.0 [facility] Comment on above: Performed By: #### 2 [id number] #### [facility] [address] [place] [address] MCHC (RBC) [Mass/Vol] 31.2 g/dL Low 31.4-36.0 [facility] Comment on above: Performed By: #### 2 [id number] #### [facility] [address] [place] [address] MCV (RBC) [Entitic vol] 74.4 fL Low 80.0-100.0 [facility] Comment on above: Performed By: #### 2 [id number] #### [facility] [address] [place] [address] Microcytes Ql (Bld) PRESENT Invalid Interpretation Code [facility] Comment on above: Performed By: #### 2 [id number] #### [facility] [address] [place] [address] Monocytes (Bld) [#/Vol] 0.7 E9/L Normal 0.2-1.0 [facility] Comment on above: Performed By: #### 2 [id number] #### [facility] [address] [place] [address] Neutrophils (Bld) [#/Vol] 3.2 E9/L Normal 2.0-7.5 [facility] Comment on above: Performed By: #### 2 [id number] #### [facility] [address] [place] [address] Neutrophils/100 WBC (Bld) 58.7 % Normal 36.0-75.0 [facility] Comment on above: Performed By: #### 2 [id number] #### [facility] [address] [place] [address] Ovalocytes LM Ql (Bld) PRESENT Invalid Interpretation Code [facility] Comment on above: Performed By: #### 2 [id number] #### [facility] [address] [place] [address] Platelet 148.0 E9/L Low 150.0-500. 0 [facility] Comment on above: Performed By: #### 2 [id number] #### [facility] [address] [place] [address] Platelet mean volume (Bld) [Entitic vol] 9.5 fL Normal 6.4-10.8 [facility] Comment on above: Performed By: #### 2 [id number] #### [facility] [address] [place] [id number] RBC (Bld) [#/Vol] 4.2 E12/L Low 4.3-5.9 [facility] Comment on above: Performed By: #### 2 [id number] #### [facility] [address] [place] [address] RBC size Nom (Bld) SEE MORPHOLOGY Invalid Interpretation Code [facility] Comment on above: Performed By: #### 2 [id number] #### [facility] [address] [place] [address] WBC corrected for nucl RBC Auto (Bld) [#/Vol] 5.5 E9/L Normal 4.0-11.0 [facility] Comment on above: Performed By: #### 2 [id number] #### [facility] [address] [place], [place] [id number] CHEMISTRYOrdered By: SYSTEM SYSTEM on 06-20-2024 Albumin [Mass/Vol] 4.0 g/dL Normal 3.3 - 5.0 gm/dL [facility] Albumin/Globulin [Mass ratio] 1.4 {ratio} Normal 1.1 - 2.2 [facility] ALP [Catalytic activity/Vol] 115 [iU]/d High 21 - 98 Int._Unit/ L [facility] ALT No additional P-5'-P [Catalytic activity/Vol] 8 [iU]/d Normal 6 - 46 Int._Unit/ L [facility] Anion gap [Moles/Vol] 10 mmol/L Normal 6 - 16 mEq/L [facility] AST [Catalytic activity/Vol] 14 [iU]/d Normal 5 - 43 Int._Unit/ L [facility] Bilirubin [Mass/Vol] 0.5 mg/dL Normal 0.0 - 1 .1 mg/dL [facility] Calcium [Mass/Vol] 8.8 mg/dL Low 8.9 - 11. 1 mg/dL [facility] Chloride [Moles/Vol] 104 mmol/L Normal 101 - 1 11 mmol/L [facility] CO2 [Moles/Vol] 28 mmol/L Normal 21 - 31 mmol/L [facility] Cobalamin (Vitamin B12) [Mass/Vol] 849 pg/mL Normal 50 - 1500 pg/mL [facility] Creatinine [Mass/Vol] 0.8 mg/dL Normal 0.5 - 1.3 mg/dL [facility] eGFR 88 mL/min/1.73 m2 Normal >=59mL/min /1.73 m2 [facility] Ferritin [Mass/Vol] 200 ng/mL Normal 24 - 336 ng/mL [facility] Folate [Mass/Vol] ng/mL Normal >=6.7ng/mL [facility] Globulin (S) [Mass/Vol] 2.9 g/dL Normal 1.4 - 4.0 gm/dL [facility] Glucose [Mass/Vol] 99 mg/dL Normal 55 - 199 mg/dL [facility] Iron [Mass/Vol] 125 ug/dL Normal 35 - 153 mcg/dL [facility] Iron binding capacity [Mass/Vol] 267 ug/dL Normal 250 - 400 mcg/dL [facility] Iron saturation [Mass fraction] 47 % Normal 20 - 50 % [facility] LDH 126 [iU]/d Normal 93 - 218 Int._Unit/ L [facility] Potassium [Moles/Vol] 4.1 mmol/L Normal 3.5 - 5.3 mmol/L [facility] Protein [Mass/Vol] 6.9 g/dL Normal 6.0 - 7.8 gm/dL [facility] Sodium [Moles/Vol] 138 mmol/L Normal 135 - 145 mmol/L [facility] Transferrin [Mass/Vol] 191 mg/dL Low 200 - 370 mg/dL [facility] Urea nitrogen [Mass/Vol] 16 mg/dL Normal 5 - 21 mg/dL [facility] Urea nitrogen/Creatinine [Mass ratio] 20 mg/mg Normal 10 - 20 [facility] CMPon 06-20-2024 Albumin [Mass/Vol] 4.0 g/dL Normal 3.3-5.0 [facility] Comment on above: Performed By: #### 2 [id number] #### [facility] [address] [place] [address] Albumin/Globulin (S) [Mass conc ratio] 1.4 Normal 1.1-2.2 [facility] Comment on above: Performed By: #### 2 [id number] #### [facility] [address] [place] [address] ALP [Catalytic activity/Vol] 115 Int._Unit/L High 21-98 [facility] Comment on above: Performed By: #### 2 [id number] #### [facility] [address] [place] [address] ALT No additional P-5'-P [Catalytic activity/Vol] 8 Int._Unit/L Normal 6-46 [facility] Comment on above: Performed By: #### 2 [id number] #### [facility] [address] [place] [address] Anion gap [Moles/Vol] 10 mmol/L Normal 6-16 [facility] Comment on above: Performed By: #### 2 [id number] #### [facility] [address] [place] [address] AST [Catalytic activity/Vol] 14 Int._Unit/L Normal 5-43 [facility] Comment on above: Performed By: #### 2 [id number] #### [facility] [address] [place] [address] Bilirubin [Mass/Vol] 0.5 mg/dL Normal 0.0-1.1 [facility] Comment on above: Performed By: #### 2 [id number] #### [facility] [address] [place] [address] Calcium [Mass/Vol] 8.8 mg/dL Low 8.9-11.1 [facility] Comment on above: Performed By: #### 2 [id number] #### [facility] [address] [place] [address] Chloride [Moles/Vol] 104 mmol/L Normal 101-111 [facility] Comment on above: Performed By: #### 2 [id number] #### [facility] [address] [place] [address] CO2 [Moles/Vol] 28 mmol/L Normal 21-31 [facility] Comment on above: Performed By: #### 2 [id number] #### [facility] [address] [place] [address] Creatinine [Mass/Vol] 0.8 mg/dL Normal 0.5-1.3 [facility] Comment on above: Performed By: #### 2 [id number] #### [facility] [address] [place] [address] Globulin (S) [Mass/Vol] 2.9 g/dL Normal 1.4-4.0 [facility] Comment on above: Performed By: #### 2 [id number] #### [facility] [address] [place] [address] Glucose [Mass/Vol] 99 mg/dL Normal 55-199 [facility] Comment on above: Performed By: #### 2 [id number] #### [facility] [address] [place] [address] Potassium [Moles/Vol] 4.1 mmol/L Normal 3.5-5.3 [facility] Comment on above: Performed By: #### 2 [id number] #### [facility] [address] [place] [address] Protein [Mass/Vol] 6.9 g/dL Normal 6.0-7.8 [facility] Comment on above: Performed By: #### 2 [id number] #### [facility] [address] [place] [address] Sodium [Moles/Vol] 138 mmol/L Normal 135-145 [facility] Comment on above: Performed By: #### 2 [id number] #### [facility] [address] [place] [address] Urea nitrogen [Mass/Vol] 16 mg/dL Normal 5-21 [facility] Comment on above: Performed By: #### 2 [id number] #### [facility] [address] [place] [address] Urea nitrogen/Creatinine [Mass ratio] 20 No Units Normal 10-20 [facility] Comment on above: Performed By: #### 2 [id number] #### [facility] [address] [place] [address] Ferritinon 06-20-2024 Ferritin [Mass/Vol] 200 ng/mL Normal 24-336 [facility] Comment on above: Performed By: #### 2 [id number] #### [facility] [address] [place] [id number] Folateon 06-20-2024 Folate [Mass/Vol] ng/mL Normal >=6.7 [facility] Comment on above: Performed By: #### 2 [id number] #### [facility] [address] [place] [id number] HEMATOLOGYOrdered By: SYSTEM SYSTEM on 06-20-2024 Basophils/100 WBC (Bld) 1.9 % Normal 0.0 - 2.0 % [facility] Basophils/Leukocytes Auto (Bld) [Pure # fraction] 0.1 E9/L Normal 0.0 - 0.2 E9/L [facility] Eosinophils (Bld) [#/Vol] 0.1 E9/L Normal 0.0 - 0.5 E9/L [facility] Eosinophils/100 WBC (Bld) 2.2 % Normal 0.0 - 8.0 % [facility] Erythrocyte distribution width (RBC) [Ratio] 19.8 % High 10.9 - 14.2 % [facility] Hematocrit (Bld) [Volume fraction] 31.5 % Low 37.7 - 49.0 % [facility] Hemoglobin (Bld) [Mass/Vol] 9.8 g/dL Low 13.5 - 17.5 gm/dL [facility] Hypochromia Auto Ql (Bld) PRESENT *NA* (06/20/24 12:54 PM) Invalid Interpretation Code [facility] Lymphocytes (Bld) [#/Vol] 1.4 E9/L Normal 1.0 - 4.0 E9/L [facility] Lymphocytes/100 WBC (Bld) 25.2 % Normal 14.0 - 50.0 % [facility] MCH (RBC) [Entitic mass] 23.2 pg Low 27.0 - 34.0 pg [facility] MCHC (RBC) [Mass/Vol] 31.2 g/dL Low 31.4 - 36.0 gm/dL [facility] MCV (RBC) [Entitic vol] 74.4 fL Low 80.0 - 100.0 fL [facility] Microcytes Ql (Bld) PRESENT *NA* (06/20/24 12:54 PM) Invalid Interpretation Code [facility] Monocytes (Bld) [#/Vol] 0.7 E9/L Normal 0.2 - 1.0 E9/L [facility] Monocytes/100 WBC (Bld) 12.0 % Normal 4.0 - 14.0 % [facility] Neutrophils (Bld) [#/Vol] 3.2 E9/L Normal 2.0 - 7.5 E9/L [facility] Neutrophils/100 WBC (Bld) 58.7 % Normal 36.0 - 75.0 % [facility] Ovalocytes LM Ql (Bld) PRESENT *NA* (06/20/24 12:54 PM) Invalid Interpretation Code [facility] Platelet 148.0 E9/L Low 150.0 - 500.0 E9/L [facility] Platelet mean volume (Bld) [Entitic vol] 9.5 fL Normal 6.4 - 10.8 fL [facility] RBC (Bld) [#/Vol] 4.2 E12/L Low 4.3 - 5.9 E12/L [facility] RBC size Nom (Bld) SEE MORPHOLOGY *NA* (06/20/24 12:54 PM) Invalid Interpretation Code [facility] WBC corrected for nucl RBC Auto (Bld) [#/Vol] 5.5 E9/L Normal 4.0 - 11.0 E9/L [facility] Ironon 06-20-2024 Iron [Mass/Vol] 125 microgram/dL Normal 35-153 [facility] Comment on above: Performed By: #### 2 [id number] #### [facility] [address] [place] [address] Iron Saturationon 06-20-2024 Iron binding capacity [Mass/Vol] 267 microgram/dL Normal 250-400 [facility] Comment on above: Performed By: #### 2 [id number] #### [facility] [address] [place] [address] Iron saturation [Mass fraction] 47 % Normal 20-50 [facility] Comment on above: Performed By: #### 2 [id number] #### [facility] [address] [place] [address] LDHon 06-20-2024 LDH 126 Int._Unit/L Normal 93-218 [facility] Comment on above: Performed By: #### 2 [id number] #### [facility] [address] [place] [address] Transferrinon 06-20-2024 Transferrin [Mass/Vol] 191 mg/dL Low 200-370 [facility] Comment on above: Performed By: #### 2 [id number] #### [facility] [address] [place] [address] URINALYSISOrdered By: SYSTEM SYSTEM on 06-20-2024 Clarity (U) Clear (06/20/24 2:00 PM) Normal Clear [facility] UA Auto SS Color (U) Yellow 1 (06/20/24 2:00 PM) Normal Yellow [facility] Auto SS Comment on above: Interpretive Data: M icroscopic readings are only performed on those samples that meet specific criteria set forth by [facility]. pH (U) 6.0 *NA* (06/20/24 2:00 PM) Invalid Interpretation Code 5.0 - 9.0 [facility]A Auto SS Specific gravity (U) [Rel density] 1.019 *NA* (06/20/24 2:00 PM) Invalid Interpretation Code 1.005 - 1.030 [facility] UA Auto SS URINALYSISOrdered By: [place] on 06-20-2024 UA Spec Desc Random Urine (06/20/24 2:00 PM) Normal [facility] UA Auto SS Urinalysis with MicroOrdered By: SYSTEM SYSTEM on 06-20-2024 Bilirubin Ql (U) Negative Normal Negative [facility]A Auto SS Comment on above: Performed By: #### 4 [id number] #### [facility] [address] [place] [address] Glucose Ql (U) Negative Normal Negative [facility] UA Au to SS Comment on above: Performed By: #### 4 [id number] #### [facility] [address] [place] [address] Hemoglobin Auto test strip (U) [Mass/Vol] Negative Normal Negative [facility] UA Aut o SS Comment on above: Performed By: #### 4 [id number] #### [facility] [address] [place] [address] Ketones Auto test strip Ql (U) Negative Normal Negative [facility] UA Auto SS Comment on above: Performed By: #### 4 [id number] #### [facility] [address] [place] [address] Leukocyte esterase Auto test strip Ql (U) Negative Normal Negative [facility] UA Auto SS Comment on above: Performed By: #### 4 [id number] #### [facility] [address] [place] [address] Nitrite Auto test strip Ql (U) Negative Normal Negative [facility] UA Auto SS Comment on above: Performed By: #### 4 [id number] #### [facility] [address] [place] [address] Protein Ql (U) Negative Normal Negative [facility] UA Au to SS Comment on above: Performed By: #### 4 [id number] #### [facility] [address] [place] [address] Urobilinogen (U) [Mass/Vol] Negative Normal Negative [facility] UA Auto SS Comment on above: Performed By: #### 4 [id number] #### [facility] [address] [place] [address] Urinalysis with Microon 05-28 Clarity (U) Clear Normal Clear [facility] Comment on above: Performed By: #### 4 [id number] #### [facility] [address] [place] [address] Color (U) Yellow Normal Yellow [facility] Comment on above: Result Comment: Micr oscopic readings are only performed on those samples that meet specific criteria set forth by [facility]. Performed By: #### 4 [id number] #### [facility] [address] [place] [address] pH (U) 6.0 [pH] Invalid Interpretation Code 5.0-9.0 [facility] Comment on above: Performed By: #### 4 [id number] #### [facility] [address] [place] [address] Specific gravity (U) [Rel density] 1.019 Invalid Interpretation Code 1.005-1.03 0 [facility] Comment on above: Performed By: #### 4 [id number] #### [facility] [address] [place] [address] Type of Urine collection method Random Urine Normal [facility] Comment on above: Performed By: #### 4 [id number] #### [facility] [address] [place] [address] Vit B12on 06-20-2024 Cobalamin (Vitamin B12) [Mass/Vol] 849 pg/mL Normal 50-1500 [facility] Comment on above: Performed By: #### 2 [id number] #### [facility] [address] [place] [address] eGFRon 06-20-2024 eGFR 88 mL/min/1.73 m2 Normal >=59 [facility] Comment on above: Performed By: #### 1 [id number] #### [facility] [address] [place] [address] Guidance for drainage of abscess and placement of drainage catheter of Unspecified body regionOrdered By: Thuan Burgos on 06-08-2024 CT DLP 951.41 (mGy.cm) [facility] Work Phone: CT Series Topogram,Topogram,i- SPIRAL ,i-Sequence [facility] Work Phone: CTDI VOL 0.03 (mGy),0.03 (mGy),36.70 (mGy),29.30 (mGy) [facility]: PHANTOM TYPE IEC Body Dosimetry Phantom,IEC Body Dosimetry Phantom,IEC Body Dosimetry Phantom,IEC Body Dosimetry Phantom [facility]: [facility]: CT Guidance for drainage of abscess and placement of drainage catheter of Unspecified body regionon 06-08-2024 Thuan Burgos MD - 06/08/2024 EXAMINATION: CT ABSCESS DRAINAGE (ARIEL) 05/22/2024 11:05 AM CLINICAL HISTORY: Rad Procedure required: = perc drain for intrabdominal abscess,Intrabdominal abscess s/p lap kyleigh on 05/04 @ [facility] DIAGNOSIS: ORDERING PROVIDER: CARLOS UMANA TECHNSTAR NOTE: Sedation start time: 1037 Sedation end time: 1048 Total versed given: 1mg Total fentanyl given: 100mcg ATTENDING PHYSICIAN: Thuan Burgos RESIDENT/FELLOW PHYSICIAN: Thuan Burgos INTRA-PROCEDURE MEDS: SEDATION TIME: Start time: 1037 Stop time: 1048 INFORMED CONSENT: Written informed consent was obtained. The procedure, risks, benefits, and alternatives were discussed. All questions were answered. TIMEOUT: Physician led timeout was conducted documenting correct patient, procedure, site, fire risk, antibiotics and allergies. COMPLICATIONS: None ESTIMATED BLOOD LOSS: Less than 10 mL TECHNIQUE: After the risks, benefits, and alternatives were explained to the patient, informed consent was obtained and a timeout was performed. The patient was positioned supine on the CT table for imaging guidance. Axial CT images were obtained through the area of interest and the patient's skin was marked. The patient's skin was then prepped and draped in the usual sterile fashion. Under CT guidance, a 5 [place] Yueh catheter was advanced into the gallbladder fossa collection via a subcostal approach. A 0.035 Amplatz wire was advanced through the catheter, with subsequent removal of the catheter and serial dilatations over the wire. A 10 [place] drainage catheter was then advanced over the wire into the fluid collection. Approximately 10 cc of purulent fluid was aspirated. The drainage catheter was then secured to the skin. The site was dressed in the usual aseptic fashion. The patient tolerated the procedure well without immediate complication. FINDINGS: Initial images identify the fluid collection within the gallbladder fossa. . Images made during the procedure demonstrate guide needle position within the collection. Post procedure images fail to show complication. IMPRESSION: Technically successful placement of a 10 [place] pigtail catheter. [facility]CRO: [facility] IRON, TIBC AND FERRITIN PANE Damian 06-07-2024 % SATURATION 38 % (calc) Normal 20-48 [facility] Comment on above: Performed By: #### 5 616, 793 #### [facility] of [address], [address] [place] [address] Childcare Teacher: Bert Musa MD Ferritin [Mass/Vol] 265 ng/mL Normal 24-380 [facility] Comment on above: Performed By: #### 5 616, 793 #### [facility] [address], [address] [place] [address] Childcare Teacher: Bert Musa MD IRON BINDING CAPACITY 273 mcg/dL (calc) Normal 250-425 [facility] Comment on above: Performed By: #### 5 616, 793 #### [facility] [address], [address] [place] [address] Childcare Teacher: Bert Musa MD IRON, TOTAL 104 mcg/dL Normal 50-180 [facility] Comment on above: Performed By: #### 5 046, 793 #### [facility] [address], [address] [place] [address] Childcare Teacher: Bert Musa MD RETICULOCYTE COUNTon 025 RETICULOCYTE COUNT, AUTOMATED 1.7 % Normal [facility] Comment on above: Performed By: #### 5 616, 793 #### [facility] [place] [address] Childcare Teacher: Bert Musa MD RETICULOCYTE, ABSOLUTE [address] cells/uL Normal [address] 0 [facility] Comment on above: Performed By: #### 5 616, 793 #### [facility] [place] [address] Childcare Teacher: Bert Musa MD CT Abdomen/Pelvis w/ Contras ton 06-05-2024 CT Abdomen/Pelvis w/ Contrast Exam Date/Time: 06/05/2024 14:06 EST Reason for Exam: L02.211;Pain Report IMPRESSION: INTERVAL DECREASE IN SIZE OF FLUID COLLECTION WITHIN GALLBLADDER FOSSA FROM 5.0 X 7.9 X 5.2 CM TO 3.9 X 2.4 X 2.0 CM. CHOLECYSTECTOMY. SIGMOID DIVERTICULOSIS. OTHER FINDINGS DISCUSSED. CT ABDOMEN PELVIS WITH INTRAVENOUS CONTRAST MEDIUM. HISTORY: PAIN, L02.211. POST CHOLECYSTECTOMY ABSCESS. TECHNICAL FACTORS: CT imaging of the abdomen and pelvis were obtained and formatted as 5 mm contiguous axial images from the domes of the diaphragm to the symphysis pubis. Sagittal and coronal reconstructions were also obtained. Intravenous contrast medium utilized. Comparison: CT abdomen pelvis May 26, 2024 Findings: Lower chest: Cardiac size normal. No pericardial effusion. Coronary artery calcification identified. Lung bases clear. Liver: Normal in size, shape, and attenuation. Bile Ducts: Normal in caliber. Gallbladder: Surgically absent. Percutaneous drainage catheter of surgical bed again identified. Residual fluid within postsurgical bed now measures 3.9 x 2.4 x 2.0 cm, compared to 5.0 x 7.9 x 5.2 cm. Mild fat stranding again demonstrated adjacent to postsurgical bed. Pancreas: Normal without masses, cysts, ductal dilatation or calcification. Spleen: Normal in size without masses or calcifications. No splenules. Kidneys: Normal in size and enhancement. 3.2 cm simple cortical cyst anterior midpole right kidney unchanged. No hydronephrosis, masses, or stones. Adrenals: Normal. Small bowel: Normal in caliber. Appendix: Normal. Report Colon: Normal in caliber. Diverticular change, sigmoid colon. Peritoneum: No ascites, free air, or fluid collections. Mild thickening right anterior pararenal fascia. Vessels: Aorta normal in course and caliber. Portal vein, splenic vein, superior mesenteric vein are patent. Lymph nodes: Retroperitoneal: No enlarged retroperitoneal lymph nodes. Mesenteric: No enlarged mesenteric lymph nodes. Pelvic: No enlarged pelvic lymph nodes. Ureters: Normal in course and caliber. No calcifications. Bladder: No wall thickening. Reproductive organs: No pelvic masses. Abdominal Wall: Fat identified within right inguinal canal. No diastasis of rectus musculature. No edema or masses. Bones: No bone lesions. No degenerative changes. No post operative changes. All CT scans at this facility use dose modulation, iterative reconstruction, and/or weight based dosing when appropriate to reduce radiation dose to as low as reasonably achievable. Ordering Provider: Mallorie Piper FINAL REPORT Dictated: 06/05/2024 2:26 pm Darian Beckman MD Signed (Electronic Signature): 06/05/2024 2:26 pm Signed by: Darian Beckman MD Transcribed by: LANA Technologist: JAYDA Edmonds [facility] CBC (H/H, RBC, INDICES, WBC, PLT)on 06-02-2024 Erythrocyte distribution width (RBC) [Ratio] 17.6 % High 11.0-15.0 [facility] Comment on above: Performed By: #### 1 759 #### [facility] [place] [address] Childcare Teacher: Bert Musa MD Hematocrit (Bld) [Volume fraction] 28.8 % Low 38.5-50.0 [facility] Comment on above: Performed By: #### 1 759 #### [facility] [place] [address] Childcare Teacher: Bert Musa MD Hemoglobin (Bld) [Mass/Vol] 8.3 g/dL Low 13.2-17.1 [facility] Comment on above: Performed By: #### 1 759 #### [facility] [place] [address] Childcare Teacher: Bert Musa MD MCH (RBC) [Entitic mass] 22.7 pg Low 27.0-33.0 [facility] Comment on above: Performed By: #### 1 769 #### [facility] [place] [address] Childcare Teacher: Bert Musa MD MCHC (RBC) [Mass/Vol] 28.8 g/dL Low 32.0-36.[address] [facility] Comment on above: Result Comment: For adults, a slight decrease in the calculated MCHC value (in the range of 30 to 32 g/dL) is most likely not clinically significant; however, it should be interpreted with caution in correlation with other red cell parameters and the patient's clinical condition. Performed By: #### 1 759 #### [facility] of [place] [address] Childcare Teacher: Bert Musa MD MCV (RBC) [Entitic vol] 78.7 fL Low 80.0-100.0 [facility] Comment on above: Performed By: #### 1 759 #### [facility] of [place] [address] Childcare Teacher: Bert Musa MD Platelet mean volume (Bld) [Entitic vol] 11.4 fL Normal 7.5-12.5 [facility] Comment on above: Performed By: #### 1 759 #### [facility] of [place] [address] Childcare Teacher: Bert Musa MD Platelets (Bld) [#/Vol] 258 10*3/uL Normal 140-400 [facility] Comment on above: Performed By: #### 1 759 #### [facility] of [place] [address] Childcare Teacher: Bert Musa MD RBC (Bld) [#/Vol] 3.66 10*6/uL Low 4.20-5.80 [facility] Comment on above: Performed By: #### 1 759 #### [facility] of [place] [address] Childcare Teacher: Bert Musa MD WBC (Bld) [#/Vol] 6.7 10*3/uL Normal 3.8-10.8 [facility] Comment on above: Performed By: #### 1 759 #### [facility] of [place] [address] Childcare Teacher: Bert Musa MD Coding Queryon 05-29-2024 Coding Query Coding Query From: Berna Josue RN To: Rosi Hinton MD; Cc: Ju Jerry; Sent: 05/10/2024 10:09:46 EST [...] desired or expected. Thank you! Berna [phone] From: Rosi Hinton MD To: Berna Josue RN; Sent: 05/29/2024 10:34:12 EST Subject: RE: Coding Query Caller Name: VALENCIA BROOKS; Caller Number: H Chronic Anemia: hemolytic: idiopathic Normal [facility] AEROBIC WOUND CULTUREOrdered By: Josefina Rodriguez on 05-26-2024 Bacteria identified Cx Nom (Wound) No Growth [facility] Microscopic observation Gram stain Nom (Unsp spec) 4+ Polymorphonuclear Leukocytes [facility] Microscopic observation Gram stain Nom (Unsp spec) No Squamous Epithelial Cells seen [facility] Microscopic observation Gram stain Nom (Unsp spec) Positive [facility] Organisms observed i n a gram stain but do not demonstrate growth in culture may be non-viable due to interfering substances (antibiotics) or may be anaerobic. [facility] ANAEROBIC CULTURE, MISCOrd ed By: Alicia Ruiz on 05-24-2024 Bacteria identified Anaer cx Nom (Unsp spec) Positive Abnormal [facility] Bacteria identified Anaer cx Nom (Unsp spec) Anaerobic culture yields Clostridium perfringens [facility] Interpretation and review of laboratory results Abnormal [facility] BASIC METABOLIC PANELon 04-27 Anion gap [Moles/Vol] 12 mmol/L Normal 10-20 [facility] Comment on above: Performed By: #### C BC #### [facility] [address] [place] [address], Calcium [Mass/Vol] 7.4 mg/dL Low 8.6-10.3 [facility] Comment on above: Performed By: #### C BC #### [facility] [address] [place] [address], Chloride [Moles/Vol] 103 mmol/L Normal 98-107 [facility] Comment on above: Performed By: #### C BC #### [facility] [address] [place] [address], CO2 [Moles/Vol] 25 mmol/L Normal 21-31 [facility] Comment on above: Performed By: #### C BC #### [facility] [address] [place] [address], Creatinine [Mass/Vol] 0.71 mg/dL Normal 0.70-1.30 [facility] Comment on above: Performed By: #### C BC #### [facility] [address] [place] [address], ESTIMATED GFR (CKD-EPI) 92 mL/min/1.73sqm Normal >=60 [facility] Comment on above: Result Comment: 2020 CKD EPI Equation using Creatinine without Race Comment: Estimated glomerular filtration rate (eGFR) is calculated without a race coefficient. Values should be interpreted in the context of the patient's full clinical presentation. Reference: 1. Oneil Julien, Delfino M, Eileen HARTMANN, et al.. A Unifying Approach for GFR Estimation: Recommendations of the NKF-ASN Task Force on Reassessing the Inclusion of Race in Diagnosing Kidney Disease. [place] Journal of Kidney Diseases 2021;79(2):268-88.e1. 2. N Engl J Med 2020 Vol. 385 Issue 19 Pages 7104-3205 Performed By: #### C BC #### [facility] [address] [place] [address], Glucose [Mass/Vol] 109 mg/dL Normal 74-109 [facility] Comment on above: Performed By: #### C BC #### [facility] [address] [place], [place], Potassium [Moles/Vol] 3.7 mmol/L Normal 3.5-5.0 [facility] Comment on above: Performed By: #### C BC #### [facility] [address] [place] [address], Sodium [Moles/Vol] 136 mmol/L Normal 136-145 [facility] Comment on above: Performed By: #### C BC #### [facility] [address] [place] [address], Urea nitrogen [Mass/Vol] 11 mg/dL Normal 7-25 [facility] Comment on above: Performed By: #### C BC #### [facility] [address] [place] [address], Basic metabolic 2000 panelon 05-23-2024 Anion gap [Moles/Vol] 12 mmol/L 10 - 20 [facility] Calcium [Mass/Vol] 7.4 mg/dL Low 8.6 - 10. 3 mg/dL [facility] Chloride [Moles/Vol] 103 mmol/L 98 - 10 7 mmol/L [facility] CO2 [Moles/Vol] 25 mmol/L 21 - 31 mmol/L [facility] Creatinine [Mass/Vol] 0.71 mg/dL 0.70 - 1.30 mg/dL [facility] GFR/1.73 sq M.predicted CKD-EPI (S/P/Bld) [Vol rate/Area] 92 - PINF [facility] Comment on above: 2020 CKD EPI Equatio n using Creatinine without Race Comment: Estimated glomerular filtration rate (eGFR) is calculated without a race coefficient. Values should be interpreted in the context of the patient's full clinical presentation. Reference: 1. Oneil C, Delfino M, Eileen HARTMANN, et al.. A Unifying Approach for GFR Estimation: Recommendations of the NKF-ASN Task Force on Reassessing the Inclusion of Race in Diagnosing Kidney Disease. [place] Journal of Kidney Diseases 2021;79(2):268-88.e1. 2. N Engl J Med 1 Vol. 385 Issue 19 Pages 9500-3562 Glucose [Mass/Vol] 109 mg/dL 74 - 109 mg/dL [facility] Interpretation and review of laboratory results Abnormal [facility] Potassium [Moles/Vol] 3.7 mmol/L 3.5 - 5.0 mmol/L [facility] Sodium [Moles/Vol] 136 mmol/L 136 - 145 mmol/L [facility] Urea nitrogen [Mass/Vol] 11 mg/dL 7 - 25 mg/dL [facility] CBC panel Auto (Bld)on 05-23 Erythrocyte distribution width (RBC) [Ratio] 20.5 % High 11.5 - 14.5 % [facility] Hematocrit (Bld) [Volume fraction] 24.9 % Low 41.0 - 53.0 % [facility] Hemoglobin (Bld) [Mass/Vol] 7.5 g/dL Low 13.9 - 16.3 g/dL [facility] Interpretation and review of laboratory results Abnormal [facility] MCH (RBC) [Entitic mass] 22.3 pg Low 26.0 - 34.0 pg [facility] MCHC (RBC) [Mass/Vol] 30.2 g/dL Low 32.0 - 35.9 g/dL [facility] MCV (RBC) [Entitic vol] 74 fL Low 80 - 100 fL [facility] Platelet mean volume (Bld) [Entitic vol] 7.8 fL 7.5 - 11.2 fL [facility] Platelets (Bld) [#/Vol] 297 10*3/uL 150 - 400 K/uL [facility] RBC (Bld) [#/Vol] 3.37 10*6/uL Low [facility] WBC (Bld) [#/Vol] 11.1 10*3/uL 4.5 - 11.5 K/uL [facility] COMPLETE BLOOD COUNTon 05-23 Erythrocyte distribution width (RBC) [Ratio] 20.5 % High 11.5-14.5 [facility] Comment on above: Performed By: #### C BC #### [facility] [address] [place] [address], Hematocrit (Bld) [Volume fraction] 24.9 % Low 41.0-53.0 [facility] Comment on above: Performed By: #### C BC #### [facility] [address] [place] [address], Hemoglobin (Bld) [Mass/Vol] 7.5 g/dL Low 13.9-16.3 [facility] Comment on above: Performed By: #### C BC #### [facility] [address] [place] [address], MCH (RBC) [Entitic mass] 22.3 pg Low 26.0-34.0 [facility] Comment on above: Performed By: #### C BC #### [facility] [address] [place] [address], MCHC (RBC) [Mass/Vol] 30.2 g/dL Low 32.0-35.9 [facility] Comment on above: Performed By: #### C BC #### [facility] [address] [place] [address], MCV (RBC) [Entitic vol] 74 fL Low 80-100 [facility] Comment on above: Performed By: #### C BC #### [facility] [address] [place] [address], Platelet mean volume (Bld) [Entitic vol] 7.8 fL Normal 7.5-11.2 [facility] Comment on above: Performed By: #### C BC #### [facility] [address] [place] [address], Platelets (Bld) [#/Vol] 297 10*3/uL Normal 150-400 [facility] Comment on above: Performed By: #### C BC #### [facility] [address] [place] [address], RBC (Bld) [#/Vol] 3.37 10*6/uL Low 4.50-5.90 [facility] Comment on above: Performed By: #### C BC #### S [facility] [address] [place], [place], WBC (Bld) [#/Vol] 11.1 10*3/uL Normal 4.5-11.5 [facility] Comment on above: Performed By: #### C BC #### [facility] [address] [place], [place], MAGNESIUMon 05-23-2024 Magnesium [Mass/Vol] 1.9 mg/dL 1.9 - 2 .7 mg/dL [facility] Magnesium [Mass/Vol] 1.9 mg/dL Normal 1.9-2.7 [facility] Comment on above: Performed By: #### C BC #### [facility] [address] [place], [place], No Panel Informationon 05-23 Interpretation and review of laboratory results Normal [facility] PHOSPHORUSon 05-23-2024 Phosphate [Mass/Vol] 3.4 mg/dL 2.5 - 5 .0 mg/dL [facility] Phosphate [Mass/Vol] 3.4 mg/dL Normal 2.5-5.0 [facility] Comment on above: Performed By: #### C BC #### S [facility] [address] [place], [place], Progress Noteson 05-23-2024 Ruby On Rails Consultant Authentication Interface Message Text I have reviewed and agree with Amanda's (Student Nurse) documentation for [id number] shift. Normal [facility] Ruby On Rails Consultant Authentication Interface Message Text ---- GENERAL INFORMATION --- EMERGENCY GENERAL SURGERY- DAILY PROGRESS NOTE Patient Name: Valencia Brooks Admission Date: 05/21/2024 Patient seen and examined on 05/23/24 -- INTERVAL HISTORY/EVENTS Background: Valencia Brooks is a 83 year old male with a PMH hypothyroidism, osteoarthritis, GERD, lipoprotein deficiency disorder, basal cell carcinoma. He was recently admitted at [facility] and underwent lap subtotal colectomy by Dr. Hinton. A drain was left in place and patient was discharged. He was seen in EGS [facility] on Wednesday05/17/2024 where minimal drain output was noted and drain was discontinued. He then presented to OSH ED on Wednesday05/21/2024 with complaints of syncope and abdominal pain. He was seen at [facility] where imaging was completed and was found to have intra- abdominal abscess in the gallbladder fossa. Admitted to the [facility] under the EGS service for IV abx and IR consult for abscess drain placement. Hospital Course: 05/21/2024: Presented as transfer from OSH after being found to have intra-abdominal abscess in gallbladder fossa. Admitted under the EGS service for IV abx and IR consult for drain placement. 05/22/2024: To IR for drain placement. Cultures sent. 24 Hour Events: No acute events reported overnight per patient or per nursing. On evaluation this AM patient denies any abdominal pain. Denies any chest pain, shortness of breath or abdominal pain. No reports of nausea or vomiting. Patient reports he is eager for discharge. Reports he is comfortable taking care of the drain and has family to assist with drain care. Vital signs reviewed. Afebrile. HR has been acceptable with no tachycardia. BPs acceptable with no hypotension. Acceptable O2 saturations on room air. Labs reviewed. Leukocytosis resolved. H and H remains stable and acceptable. Platelets are acceptable. BMP with acceptable electrolytes and stable BUN/creatinine. Intake: 220 mL PO: 0 mL IV: 200 mL Irrigation: 20 mL Output: 945 mL UOP: 945 mL BM: 0 occurrences. Last documented BM FLORIST MANAGER Drain: None recorded Tmax: 37.0 PHYSICAL EXAM Vital Signs: Vital sign ranges over the past 24 hours (retrieved 05/23/2024 at 6:44 AM): Tmax (24 hours): 98.6 ???F (37 ???C) Pulse Av.5 Min: 76 Max: 87 Systolic (24hrs), Av , Min:112 , Max:133 Diastolic (24hrs), Av, Min:54, Max:68 MAP (mmHg) Av.2 mmHg Min: 69 mmHg Max: 81 mmHg Resp Av.9 Min: 14 Max: 22 SpO2 Av.2 % Min: 93 % Max: 97 % PHYSICAL EXAM GENERAL: Lying in bed. HOB elevated. Appears comfortable, in NAD HEENT: Normocephalic, atraumatic. CARDIOVASCULAR: Regular rate and rhythm. Palpable radial and DP pulses bilaterally. PULMONARY: CTA bilaterally. No wheezing, rales, or rhonchi. Breathing comfortably on room air. ABDOMINAL: Soft, non-tender, non-distended. Lap sites to umbilicus and RUQ with overlying dermabond, open to air. No erythema, warmth or drainage. IR drain with dark, sanguinous drainage appreciated. EXTREMITIES: SANTANA x4. No peripheral edema appreciated. SKIN: Warm and dry. NEUROLOGICAL: GCS 15. Awake, alert, oriented x3. SANTANA x4 to commands with no focal deficits appreciated. LABORATORY RESULTS (LAST 24 HOURS) CBC/PT/INR 05/23/2024 4:42 AM WBC 11.1 RBC 3.37 Hgb 7.5 Hct 24.9 MCV 74 RDW 20.5 Plt 297 Basic Metabolic Panel 05/23/2024 4:42 AM Na 136 K 3.7 Cl 103 CO2 25 Gap 12 Glu 109 BUN 11 Cr 0.71 Ca 7.4 Mg 1.9 PO4 3.4 Fingerstick Glucose (last 72 hours) None IMAGING RESULTS (PERSONALLY REVIEWED) All admit imaging and follow up imaging reviewed. No new imaging today. ----- ASSESSMENT AND PLAN -------- Diagnoses: 1. Intra-abdominal abscess 2. Leukocytosis (resolved) 3. Acute post op pain PMHx: hypothyroidism, osteoarthritis, GERD, lipoprotein deficiency disorder, basal cell carcinoma Incidental Findings: (reviewed 05/22 by BECKA) None per [facility] imaging Home meds: Aspirin 81mg daily Ferrous Sulfate 65mg daily Levothyroxine 137mcg daily Melatonin 5mg daily Omeprazole 40mg daily Vitamin B12 500mcg daily MVI daily Calcium Citrate 600mg BID Plan: Neurological: . Acute post op pain. Denies any pain on evaluation this AM. - Continue acetaminophen 650mg q6h scheduled - Continue oxycodone 2.5/5 mg q4h PRN moderate/severe pain Cardiovascular: No acute cardiac issues. BP and HR have remained acceptable. - Continue routine BP and HR monitoring per unit protocol - Resume ASA 81mg today Respiratory: No acute respiratory issues. Acceptable O2 saturations on (more content not included)... Normal [facility] AEROBIC WOUND CULTUREon 04-27 AEROBIC WOUND CULTURE C PYOG: No Growth GRAM STAIN: 4+ Polymorphonuclear Leukocytes No Squamous Epithelial Cells seen 1+ Gram Positive Bacilli, [place] Normal [facility] Comment on above: Order Comment: Organ isms observed in a gram stain but do not demonstrate growth in culture may be non-viable due to interfering substances (antibiotics) or may be anaerobic. Performed By: #### C BC #### [facility] [address] [place] [address], [id number] ANAEROBIC CULTURE, MISCon ANAEROBIC CULTURE, MISC C ANRBC: Positive Culture Report CLOSTRIDIUM PERFRINGENS Anaerobic culture yields Clostridium perfringens Normal [facility] Comment on above: Performed By: #### C ANRBC #### [facility] [address] [place] [address] BASIC METABOLIC PANELon 04-27 Anion gap [Moles/Vol] 13 mmol/L Normal 10-20 [facility] Comment on above: Performed By: #### C BC #### [facility] [address] [place] [address], Calcium [Mass/Vol] 8.0 mg/dL Low 8.6-10.3 [facility] Comment on above: Performed By: #### C BC #### S [facility] [address] [place] [address], Chloride [Moles/Vol] 103 mmol/L Normal 98-107 [facility] Comment on above: Performed By: #### C BC #### [facility] [address] [place] [address], CO2 [Moles/Vol] 26 mmol/L Normal 21-31 [facility] Comment on above: Performed By: #### C BC #### S [facility] [address] [place] [address], Creatinine [Mass/Vol] 0.74 mg/dL Normal 0.70-1.30 [facility] Comment on above: Performed By: #### C BC #### [facility] [address] [place] [address], ESTIMATED GFR (CKD-EPI) 91 mL/min/1.73sqm Normal >=60 [facility] Comment on above: Result Comment: 2020 CKD EPI Equation using Creatinine without Race Comment: Estimated glomerular filtration rate (eGFR) is calculated without a race coefficient. Values should be interpreted in the context of the patient's full clinical presentation. Reference: 1. Oneil Julien, Delfino M, Eileen HARTMANN, et al.. A Unifying Approach for GFR Estimation: Recommendations of the NKF-ASN Task Force on Reassessing the Inclusion of Race in Diagnosing Kidney Disease. Brazilian Journal of Kidney Diseases 2021;79(2):268-88.e1. 2. N Engl J Med 1 Vol. 385 Issue 19 Pages 3564-9568 Performed By: #### C BC #### [facility] [address] [place], [place], Glucose [Mass/Vol] 123 mg/dL High 74-109 [facility] Comment on above: Performed By: #### C BC #### [facility] [address] [place], [place], Potassium [Moles/Vol] 3.8 mmol/L Normal 3.5-5.0 [facility] Comment on above: Performed By: #### C BC #### [facility] [address] [place], [place], Sodium [Moles/Vol] 138 mmol/L Normal 136-145 [facility] Comment on above: Performed By: #### C BC #### S [facility] [address] [place], [place], Urea nitrogen [Mass/Vol] 13 mg/dL Normal 7-25 [facility] Comment on above: Performed By: #### C BC #### S [facility] [address] [place], [place], Basic metabolic 2000 panelon 05-22-2024 Anion gap [Moles/Vol] 13 mmol/L 10 - 20 Met [facility] Calcium [Mass/Vol] 8 mg/dL Low 8.6 - 10. 3 mg/dL [facility] Chloride [Moles/Vol] 103 mmol/L 98 - 10 7 mmol/L [facility] CO2 [Moles/Vol] 26 mmol/L 21 - 31 mmol/L [facility] Creatinine [Mass/Vol] 0.74 mg/dL 0.70 - 1.30 mg/dL [facility] GFR/1.73 sq M.predicted CKD-EPI (S/P/Bld) [Vol rate/Area] 91 - PINF [facility] Comment on above: 2020 CKD EPI Equatio n using Creatinine without Race Comment: Estimated glomerular filtration rate (eGFR) is calculated without a race coefficient. Values should be interpreted in the context of the patient's full clinical presentation. Reference: 1. Oneil Julien, Delfino M, Eileen HARTMANN, et al.. A Unifying Approach for GFR Estimation: Recommendations of the NKF-ASN Task Force on Reassessing the Inclusion of Race in Diagnosing Kidney Disease. [place] Journal of Kidney Diseases 202;79(2):268-88.e1. 2. N Engl J Med 2020 Vol. 385 Issue 19 Pages 6689-9276 Glucose [Mass/Vol] 123 mg/dL High 74 - 109 mg/dL [facility] Interpretation and review of laboratory results Abnormal [facility] Potassium [Moles/Vol] 3.8 mmol/L 3.5 - 5.0 mmol/L [facility] Sodium [Moles/Vol] 138 mmol/L 136 - 145 mmol/L [facility] Urea nitrogen [Mass/Vol] 13 mg/dL 7 - 25 mg/dL [facility] CBC panel Auto (Bld)on 05-22 Erythrocyte distribution width (RBC) [Ratio] 19.8 % High 11.5 - 14.5 % [facility] Hematocrit (Bld) [Volume fraction] 26.1 % Low 41.0 - 53.0 % [facility] Hemoglobin (Bld) [Mass/Vol] 8 g/dL Low 13.9 - 16.3 g/dL [facility] Interpretation and review of laboratory results Abnormal [facility] MCH (RBC) [Entitic mass] 22.9 pg Low 26.0 - 34.0 pg [facility] MCHC (RBC) [Mass/Vol] 30.7 g/dL Low 32.0 - 35.9 g/dL [facility] MCV (RBC) [Entitic vol] 75 fL Low 80 - 100 fL [facility] Platelet mean volume (Bld) [Entitic vol] 8.3 fL 7.5 - 11.2 fL [facility] Platelets (Bld) [#/Vol] 282 10*3/uL 150 - 400 K/uL [facility] RBC (Bld) [#/Vol] 3.5 10*6/uL Low [facility] WBC (Bld) [#/Vol] 11.9 10*3/uL High 4.5 - 11.5 K/uL [facility] COMPLETE BLOOD COUNTon 05-22 Erythrocyte distribution width (RBC) [Ratio] 19.8 % High 11.5-14.5 [facility] Comment on above: Performed By: #### C BC #### [facility] [address] [place], [place], Hematocrit (Bld) [Volume fraction] 26.1 % Low 41.0-53.0 [facility] Comment on above: Performed By: #### C BC #### [facility] [address] [place], [place], Hemoglobin (Bld) [Mass/Vol] 8.0 g/dL Low 13.9-16.3 [facility] Comment on above: Performed By: #### C BC #### [facility] [address] [place] [address], MCH (RBC) [Entitic mass] 22.9 pg Low 26.0-34.0 [facility] Comment on above: Performed By: #### C BC #### [facility] [address] [place] [address], MCHC (RBC) [Mass/Vol] 30.7 g/dL Low 32.0-35.9 [facility] Comment on above: Performed By: #### C BC #### [facility] [address] [place], [place], MCV (RBC) [Entitic vol] 75 fL Low 80-100 [facility] Comment on above: Performed By: #### C BC #### [facility] [address] [place], [place], Platelet mean volume (Bld) [Entitic vol] 8.3 fL Normal 7.5-11.2 [facility] Comment on above: Performed By: #### C BC #### [facility] [address] [place], [place], Platelets (Bld) [#/Vol] 282 10*3/uL Normal 150-400 [facility] Comment on above: Performed By: #### C BC #### [facility] [address] [place], [place], RBC (Bld) [#/Vol] 3.50 10*6/uL Low 4.50-5.90 [facility] Comment on above: Performed By: #### C BC #### S [facility] [address] [place], [place], WBC (Bld) [#/Vol] 11.9 10*3/uL High 4.5-11.5 [facility] Comment on above: Performed By: #### C BC #### [facility] [address] [place], [place], CT Guidance for drainage of abscess and placement of drainage catheter of Unspecified body regionon 05-22-2024 Radiology Study observation (narrative) [facility] PROTHROMBIN TIME AND INRon 0 05-22-2024 INR Coag (PPP) [Relative time] 1.18 {INR} High 0.90 - 1.10 [facility] Interpretation and review of laboratory results Abnormal [facility] PT Coag (PPP) [Time] 13.2 s High [facility] INR Coag (PPP) [Relative time] 1.18 {INR} High 0.90-1.10 [facility] Comment on above: Performed By: #### P T #### S [facility] [address] [place], [place], PT Coag (PPP) [Time] 13.2 s High 9.7-12.9 [facility] Comment on above: Performed By: #### P T #### S [facility] [address] [place], [place], Progress Noteson 05-22-2024 Ruby On Rails Consultant Authentication Interface Message Text Case Management SW/CM has reviewed patient's chart and assessed that there are no discharge planning needs at this time. The following was reviewed to determine no SW/CM needs warranted. 1). PT/OT evaluations indicate pt can DC home with no needs or PT/OT evaluations are not warranted. 2). No wound care or IV Antibiotics indicated at this time. 3). No SW/CM consults placed through nursing admission screen 4). Pt does not meet the criteria of being a Medicare recipient that has a high or rising readmission rate. Patient will continue to be discussed in multi-disciplinary rounds and monitored daily. If any of the the above changes, SW/CM will complete appropriate assessments and interventions. Nia DOLL, RN Inpatient Dietary Aide Teacher Cell [address] [place] [address]-F [phone] Normal [facility] Ruby On Rails Consultant Authentication Interface Message Text ---- GENERAL INFORMATION --- EMERGENCY GENERAL SURGERY- DAILY PROGRESS NOTE Patient Name: Valencia Brooks Admission Date: 05/21/2024 Patient seen and examined on 05/22/24 -- INTERVAL HISTORY/EVENTS Background: Valencia Brooks is a 83 year old male with a [facility] hypothyroidism, osteoarthritis, GERD, lipoprotein deficiency disorder, basal cell carcinoma. He was recently admitted at [facility] and underwent lap subtotal colectomy by Dr. Hinton. A drain was left in place and patient was discharged. He was seen in E[facility] on Wednesday05/17/2024 where minimal drain output was noted and drain was discontinued. He then presented to OSH ED on Wednesday05/21/2024 with complaints of syncope and abdominal pain. He was seen at [facility] where imaging was completed and was found to have intra- abdominal abscess in the gallbladder fossa. Admitted to the [facility] under the EGS service for IV abx and IR consult for abscess drain placement. Hospital Course: 05/21/2024: Presented as transfer from OSH after being found to have intra-abdominal abscess in gallbladder fossa. Admitted under the EGS service for IV abx and IR consult for drain placement. 24 Hour Events: This is my first time meeting this patient. No acute events reported overnight per patient or per nursing. On evaluation this AM patient denies any abdominal pain. Denies any chest pain, shortness of breath or abdominal pain. No reports of nausea or vomiting. Patient seen for repeat evaluation post-procedure. Patient denies any new pain. Vital signs reviewed. Afebrile. HR has been acceptable with no tachycardia. BPs acceptable with no hypotension. Acceptable O2 saturations on room air. Labs reviewed. Down-trending leukocytosis. H and H remains stable and acceptable. Platelets are acceptable. BMP with acceptable electrolytes and stable BUN/creatinine. Intake: 100 mL PO: 0 mL IV: 100 mL Output: 500 mL UOP: 500 mL BM: 0 occurrences. Last documented BM FLORIST MANAGER Tmax: 37.4 PHYSICAL EXAM Vital Signs: Vital sign ranges over the past 24 hours (retrieved 05/22/2024 at 6:29 AM): Tmax (24 hours): 99.3 ???F (37.4 ???C) Pulse Av.4 Min: 80 Max: 88 Systolic (24hrs), Av , Min:112 , Max:137 Diastolic (24hrs), Av, Min:52, Max:73 MAP (mmHg) Av.2 mmHg Min: 69 mmHg Max: 90 mmHg Resp Av.5 Min: 16 Max: 18 SpO2 Av.7 % Min: 94 % Max: 95 % PHYSICAL EXAM GENERAL: Lying in bed. HOB elevated. Appears comfortable, in NAD HEENT: Normocephalic, atraumatic. CARDIOVASCULAR: Regular rate and rhythm. Palpable radial and DP pulses bilaterally. PULMONARY: CTA bilaterally. No wheezing, rales, or rhonchi. Breathing comfortably on room air. ABDOMINAL: Soft, non-tender, non-distended. Lap sites to umbilicus and RUQ with overlying dermabond, open to air. No erythema, warmth or drainage. IR drain with dark, sanguinous drainage appreciated. EXTREMITIES: SANTANA x4. No peripheral edema appreciated. SKIN: Warm and dry. NEUROLOGICAL: GCS 15. Awake, alert, oriented x3. SANTANA x4 to commands with no focal deficits appreciated. LABORATORY RESULTS (LAST 24 HOURS) CBC/PT/INR 05/22/2024 05/21/2024 1:34 AM 2:34 PM WBC 11.9 12.3 RBC 3.50 3.42 Hgb 8.0 7.9 Hct 26.1 25.4 MCV 75 75 RDW 19.8 20.0 Plt 282 299 aPTT -- 26 INR 1.18 1.14 Basic Metabolic Panel 05/22/2024 05/21/2024 1:34 AM 2:34 PM Na 138 138 K 3.8 4.3 Cl 103 102 CO2 26 27 Gap 13 13 Glu 123 115 BUN 13 11 Cr 0.74 0.73 Ca 8.0 8.2 Fingerstick Glucose (last 72 hours) None IMAGING RESULTS (PERSONALLY REVIEWED) All admit imaging and follow up imaging reviewed. No new imaging today. ----- ASSESSMENT AND PLAN -------- Diagnoses: 1. Intra-abdominal abscess 2. Leukocytosis 3. Acute post op pain PMHx: hypothyroidism, osteoarthritis, GERD, lipoprotein deficiency disorder, basal cell carcinoma Incidental Findings: (reviewed 05/22 by BECKA) None per [facility] imaging Home meds: Aspirin 81mg daily Ferrous Sulfate 65mg daily Levothyroxine 137mcg daily Melatonin 5mg daily Omeprazole 40mg daily Vitamin B12 500mcg daily MVI daily Calcium Citrate 600mg BID Plan: Neurological: . Acute post op pain. - Continue acetaminophen 650mg q6h scheduled - Continue oxycodone 2.5/5 mg q4h PRN moderate/severe pain Cardiovascular: No acute cardiac issues. BP and HR have remained acceptable. - Continue routine BP and HR monitoring per unit protocol - Will discuss timing for ASA 81mg resumption Respiratory: No acute respiratory issues. Acceptable O2 saturations on room ar. - Continu (more content not included)... Normal [facility] BASIC METABOLIC PANELon 01-2 Anion gap [Moles/Vol] 13 mmol/L Normal 10-20 [facility] Comment on above: Performed By: #### C H8 #### S [facility] [address] [place], [place], Calcium [Mass/Vol] 8.2 mg/dL Low 8.6-10.3 [facility] Comment on above: Performed By: #### C H8 #### [facility] [address] [place], [place], Chloride [Moles/Vol] 102 mmol/L Normal 98-107 [facility] Comment on above: Performed By: #### C H8 #### [facility] [address] [place], [place], CO2 [Moles/Vol] 27 mmol/L Normal 21-31 [facility] Comment on above: Performed By: #### C H8 #### [facility] [address] [place], [place], Creatinine [Mass/Vol] 0.73 mg/dL Normal 0.70-1.30 [facility] Comment on above: Performed By: #### C H8 #### [facility] [address] [place], [place], ESTIMATED GFR (CKD-EPI) 91 mL/min/1.73sqm Normal >=60 [facility] Comment on above: Result Comment: 2020 CKD EPI Equation using Creatinine without Race Comment: Estimated glomerular filtration rate (eGFR) is calculated without a race coefficient. Values should be interpreted in the context of the patient's full clinical presentation. Reference: 1. Oneil C, Delfino M, Eileen DC, et al.. A Unifying Approach for GFR Estimation: Recommendations of the NKF-ASN Task Force on Reassessing the Inclusion of Race in Diagnosing Kidney Disease. [place] Journal of Kidney Diseases 202;79(2):268-88.e1. 2. N Engl J Med 2021 Vol. 385 Issue 19 Pages 3840-0551 Performed By: #### C H8 #### [facility] [address] [place], [place], Glucose [Mass/Vol] 115 mg/dL High 74-109 [facility] Comment on above: Performed By: #### C H8 #### [facility] [address] [place], [place], Potassium [Moles/Vol] 4.3 mmol/L Normal 3.5-5.0 [facility] Comment on above: Performed By: #### C H8 #### [facility] [address] [place], [place], Sodium [Moles/Vol] 138 mmol/L Normal 136-145 [facility] Comment on above: Performed By: #### C H8 #### S [facility] [address] [place] [address], Urea nitrogen [Mass/Vol] 11 mg/dL Normal 7-25 [facility] Comment on above: Performed By: #### C H8 #### S PATHOLOGY LABORATORY [address] [place] [address], Basic metabolic 2000 panelon 05-21-2024 Anion gap [Moles/Vol] 13 mmol/L 10 - 20 Met [facility] Calcium [Mass/Vol] 8.2 mg/dL Low 8.6 - 10. 3 mg/dL [facility] Chloride [Moles/Vol] 102 mmol/L 98 - 10 7 mmol/L [facility] CO2 [Moles/Vol] 27 mmol/L 21 - 31 mmol/L [facility] Creatinine [Mass/Vol] 0.73 mg/dL 0.70 - 1.30 mg/dL [facility] GFR/1.73 sq M.predicted CKD-EPI (S/P/Bld) [Vol rate/Area] 91 - PINF [facility] Comment on above: 2020 CKD EPI Equatio n using Creatinine without Race Comment: Estimated glomerular filtration rate (eGFR) is calculated without a race coefficient. Values should be interpreted in the context of the patient's full clinical presentation. Reference: 1. Oneil Julien, Delfino M, Eileen DC, et al.. A Unifying Approach for GFR Estimation: Recommendations of the NKF-ASN Task Force on Reassessing the Inclusion of Race in Diagnosing Kidney Disease. [place] Journal of Kidney Diseases 2021;79(2):268-88.e1. 2. N Engl J Med 2020 Vol. 385 Issue 19 Pages 3336-6431 Glucose [Mass/Vol] 115 mg/dL High 74 - 109 mg/dL [facility] Interpretation and review of laboratory results Abnormal [facility] Potassium [Moles/Vol] 4.3 mmol/L 3.5 - 5.0 mmol/L [facility] Sodium [Moles/Vol] 138 mmol/L 136 - 145 mmol/L [facility] Urea nitrogen [Mass/Vol] 11 mg/dL 7 - 25 mg/dL [facility] CBC WITH DIFFERENTIALOrdered By: Marisa Herndon on 05-21-2024 Basophils (Bld) [#/Vol] 0.07 10*3/uL 0.00 - 0.20 K/uL [facility] Basophils/100 WBC (Bld) 0.6 % NINF - 1.9 % [facility] Eosinophils (Bld) [#/Vol] 0.03 10*3/uL 0.00 - 0.70 K/uL [facility] Eosinophils/100 WBC (Bld) 0.2 % 0.1 - 4.0 % [facility] Erythrocyte distribution width (RBC) [Ratio] 20 % High 11.5 - 14.5 % [facility] Hematocrit (Bld) [Volume fraction] 25.4 % Low 41.0 - 53.0 % [facility] Hemoglobin (Bld) [Mass/Vol] 7.9 g/dL Low 13.9 - 16.3 g/dL [facility] Interpretation and review of laboratory results Abnormal [facility] Lymphocytes (Bld) [#/Vol] 0.88 10*3/uL Low 1.00 - 4.80 K/uL [facility] Lymphocytes/100 WBC (Bld) 7.2 % Low 24.0 - 44.0 % [facility] MCH (RBC) [Entitic mass] 23.1 pg Low 26.0 - 34.0 pg [facility] MCHC (RBC) [Mass/Vol] 30.9 g/dL Low 32.0 - 35.9 g/dL [facility] MCV (RBC) [Entitic vol] 75 fL Low 80 - 100 fL [facility] Monocyte distribution width Auto (Bld) [Entitic vol] 24 High NINF - 20 [facility] Monocytes (Bld) [#/Vol] 0.73 10*3/uL 0.20 - 1.00 K/uL [facility] Monocytes/100 WBC (Bld) 5.9 % 2.0 - 11.0 % [facility] Neutrophils (Bld) [#/Vol] 10.57 10*3/uL High 1.50 - 8.00 K/uL [facility] Neutrophils/100 WBC (Bld) 86.1 % High 31.0 - 76.0 % [facility] Platelet mean volume (Bld) [Entitic vol] 8.7 fL 7.5 - 11.2 fL [facility] Platelets (Bld) [#/Vol] 299 10*3/uL 150 - 400 K/uL [facility] RBC (Bld) [#/Vol] 3.42 10*6/uL Low [facility] WBC (Bld) [#/Vol] 12.3 10*3/uL High 4.5 - 11.5 K/uL [facility] CBC WITH DIFFERENTIALon 04-27 Basophils (Bld) [#/Vol] 0.07 10*3/uL Normal 0.00-0.20 [facility] Comment on above: Performed By: ###AZRA ROWAN ####[facility] PATHOLOG[facility] [id number] [place] [address], Basophils/100 WBC (Bld) 0.6 % Normal <=1.9 [facility] Comment on above: Performed By: ###AZRA ROWAN ####[facility] PATHOLOG[facility] [id number] [place], [place], Eosinophils (Bld) [#/Vol] 0.03 10*3/uL Normal 0.00-0.70 [facility] Comment on above: Performed By: ###AZRA ROWAN ####[facility] PATH[facility] [id number] [place] [address], Eosinophils/100 WBC (Bld) 0.2 % Normal 0.1-4.0 [facility] Comment on above: Performed By: ###AZRA ROWAN #### PATHOLOGY [id number] [place], [place], Erythrocyte distribution width (RBC) [Ratio] 20.0 % High 11.5-14.5 [facility] Comment on above: Performed By: #### AZRA VIGIL ####S PATHOLOGY [id number] [place], [place], Hematocrit (Bld) [Volume fraction] 25.4 % Low 41.0-53.0 [facility] Comment on above: Performed By: #### AZRA VIGIL ####S PATHOLOGY [id number] [place], [place], Hemoglobin (Bld) [Mass/Vol] 7.9 g/dL Low 13.9-16.3 [facility] Comment on above: Performed By: #### AZRA VIGIL ####[facility] PATH[facility] [id number] [place] [address], Lymphocytes (Bld) [#/Vol] 0.88 10*3/uL Low 1.00-4.80 [facility] Comment on above: Performed By: ###AZRA ROWAN ####[facility] PATH[facility] [id number] [place], [place], Lymphocytes/100 WBC (Bld) 7.2 % Low 24.0-44.0 [facility] Comment on above: Performed By: #### AZRA VIGIL ####[facility] PATH[facility] [id number] [place], [place], MCH (RBC) [Entitic mass] 23.1 pg Low 26.0-34.0 [facility] Comment on above: Performed By: #### AZRA VIGIL ####[facility] [id number] [place], [place], MCHC (RBC) [Mass/Vol] 30.9 g/dL Low 32.0-35.9 [facility] Comment on above: Performed By: #### AZRA VIGIL ####S PATHOLOGY [id number] [place], [place], MCV (RBC) [Entitic vol] 75 fL Low 80-100 [facility] Comment on above: Performed By: ###AZRA ROWAN ####S PATHOLOGY [id number] [place], [place], MONOCYTE DISTRIBUTION WIDTH 24 High <=20 [facility] Comment on above: Performed By: #### AZRA VIGIL ####[facility] [id number] [place], [place], Monocytes (Bld) [#/Vol] 0.73 10*3/uL Normal 0.20-1.00 [facility] Comment on above: Performed By: ###AZRA ROWAN ####[facility] [id number] [place], [place], Monocytes/100 WBC (Bld) 5.9 % Normal 2.0-11.0 [facility] Comment on above: Performed By: #### AZRA VIGIL ####S PATHOLOGY [id number] [place], [place], Neutrophils (Bld) [#/Vol] 10.57 10*3/uL High 1.50-8.00 [facility] Comment on above: Performed By: ###AZRA ROWAN ####[facility] [id number] [place], [place], Neutrophils/100 WBC (Bld) 86.1 % High 31.0-76.0 [facility] Comment on above: Performed By: ###AZRA ROWAN ####S PATHOLOGY [id number] [place], [place], Platelet mean volume (Bld) [Entitic vol] 8.7 fL Normal 7.5-11.2 [facility] Comment on above: Performed By: ###AZRA ROWAN ####S PATHOLOGY [id number] [place], [place], Platelets (Bld) [#/Vol] 299 10*3/uL Normal 150-400 [facility] Comment on above: Performed By: ###AZRA ROWAN ####S PATHOLOGY [id number] [place], [place], RBC (Bld) [#/Vol] 3.42 10*6/uL Low 4.50-5.90 [facility] Comment on above: Performed By: #### AZRA VIGIL ####[facility] PATH[facility] [id number] [place], [place], WBC (Bld) [#/Vol] 12.3 10*3/uL High 4.5-11.5 [facility] Comment on above: Performed By: #### AZAR VIGIL ####[facility] PATH[facility] [id number] [place], [place], CONFIRMATION ABO/RHon 2024 [facility] ABO and Rh group Nom (Bld) Blood group B Rh(D) positive Normal [facility] Comment on above: Performed By: ###Serge LAM #### [facility]ORATORY [address] [place], [place], ED Noteson 05-21-2024 Ruby On Rails Consultant Authentication Interface Message Text Transition of Care; Hand off Note Is admission screen complete? No Special/Social Considerations: No Mobility: poor Continence: WNL Radiology Testing: CT NEURO IMAGE IMPORT(ARIEL) Final Result CT BODY IMAGE IMPORT(ARIEL) Final Result CT NEURO IMAGE IMPORT(ARIEL) Final Result XA INTERVENTIONAL RADIOLOGY PROCEDURE SERVICE (Results Pending) Code Status: Full Code AGE: [age] year old SEX: male WEIGHT: no weight Chief Complaint: Chief Complaint Patient presents with CONSULT, NEW GI Pt transferred from outside hospital for surgical consult for abdominal abscess. Admitting Diagnosis: Clinical Impression Diagnosis Comment Postprocedural intraabdominal abscess (HCC) [T81.43XA, K65.1] O2 requirement: no Oxygen Therapy: Oxygen Therapy O2 Device: Room air IV/LDA access: Peripheral IV Access: 05/21/24 1448 Left Antecubital Present on Arrival to Hospital (Active) Not on File Out of Reference Range ED Results Display - if a lab has no value displayed it is normal OR not it is not completed BASIC METABOLIC PANEL - Abnormal; Notable for the following components: Result Value Ref Range Glucose 115 (*) 74 - 109 mg/dL Calcium 8.2 (*) 8.6 - 10.3 mg/dL All other components within normal limits PROTHROMBIN TIME AND INR - Abnormal; Notable for the following components: INR 1.14 (*) 0.90 - 1.10 All other components within normal limits CBC WITH DIFFERENTIAL - Abnormal; Notable for the following components: WBC 12.3 (*) 4.5 - 11.5 K/uL RBC 3.42 (*) 4.50 - 5.90 M/uL Hemoglobin 7.9 (*) 13.9 - 16.3 g/dL Hematocrit 25.4 (*) 41.0 - 53.0 % MCV 75 (*) 80 - 100 fL MCH 23.1 (*) 26.0 - 34.0 pg MCHC 30.9 (*) 32.0 - 35.9 g/dL RDW-CV 20.0 (*) 11.5 - 14.5 % Neutrophils 86.1 (*) 31.0 - 76.0 % Neutrophil # 10.57 (*) 1.50 - 8.00 K/uL Lymphocytes 7.2 (*) 24.0 - 44.0 % Lymphocytes # 0.88 (*) 1.00 - 4.80 K/uL MDW 24 (*) <=20 All other components within normal limits PARTIAL THROMBOPLASTIN TIME - Normal COMPLETE BLOOD COUNT W/DIFF Narrative: The following orders were created for panel order COMPLETE BLOOD COUNT W/DIFF. Procedure Abnormality Status --------- ------ CBC WITH DIFFERENTIAL[[id number]] Abnormal Final result MANUAL DIFF AND MORPH[[id number]] Final result Please view results for these tests on the individual orders. TYPE AND SCREEN CONFIRMATION ABO/RH MANUAL DIFF AND MORPH No past medical history on file. Medications acetaminophen (TYLENOL) tablet (650 mg Oral Given 05/21/24 1650) oxyCODONE immediate release tablet (has no administration in time range) HYDROmorphone (DILAUDID) 0.2 MG/ML injection 0.4 mg (has no administration in time range) lactated ringers iv infusion (1,000 mL Intravenous IV New Bag 05/21/24 1716) piperacillin-tazobactam (ZOSYN) 3,375 mg in sodium chloride 10 mL IV push (0 mg Intravenous IV Stop 05/21/24 1655) No active isolations Vitals Recorded in This Encounter 05/21/2024 1436 05/21/2024 1900 05/21/2024 1913 05/21/2024 191 BP: 128/73 113/64 -- 137/70 Pulse: 80 -- -- 84 Resp: 16 -- -- -- Temp: 99 ???F (37.2 ???C) -- -- -- Temp src: Oral -- -- -- SpO2: 94 % 94 % 95 % 95 % Any significant change from prior assessment: No Any new symptoms No Please contact RN Kath, EXT [phone] LR fluid bag was leaking, paused fluid Normal [facility] ED Provider Noteson 05-21-19 Ruby On Rails Consultant Authentication Interface Message Text Patient underwent a laparoscopic kyleigh May 04 2024 at OSH Transferred here due to abscess + tenderness/ pain RUQ He denies vomiting Last bowel movement 2 days ago Bowel sounds active He denies fever. Temp here 99 F Ajay Foy MD ATTENDING NOTE I saw and evaluated the patient. I personally obtained the godinez and critical portions of the history and physical exam. I reviewed the resident's documentation and discussed the patient with the resident. I agree with the resident's medical decision making as documented in the resident's note. Ajay Foy MD Normal [facility] Ruby On Rails Consultant Authentication Interface Message Text EMERGENCY DEPARTMENT - VISIT NOTE ---- HISTORY OF PRESENT ILLNESS Chief Complaint Patient presents with CONSULT, NEW GI Pt transferred from outside hospital for surgical consult for abdominal abscess. 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 The history is provided by the Patient. Valencia Brooks is a 83 year old male presenting to the ED for intraabdominal abscess. Patient transferred from [facility] for intraabdominal abscess. Had cholecystectomy performed by Dr. Bass on 05/04/24, had his KELVIN drain removed 4 days ago. Presented to ED for concerns of large intraabdominal abscess, plan to transfer to [facility] for IR intervention. Patient states that his abdominal pain is well controlled at this time. Denies any additional symptoms. Last ate yesterday. Chart review: Seen by PCP on 05/18/24, noted incision sites seem well healed w/o signs of infection PAST HISTORY Pertinent Past History: No past medical history on file. There is no problem list on file for this patient. Pertinent Social History: PHYSICAL EXAM BP 128/73 Temp 99 ???F (37.2 ???C) (Oral) Resp 16 SpO2 94% Exam: Constitutional: Nursing triage notes reviewed, Vital signs reviewed, and Alert HENT: No facial abrasions or nasal swelling, no intraoral or lip lacerations or bleeding Eyes: Pupils equal round and reactive to light and Extraocular muscles intact Neck: Supple and No nuchal rigidity Lung: Clear to auscultation and No wheezing Cardiac: Regular rate and rhythm and No murmurs Abdomen: Soft, tender to RUQ, surgical scars appear well healed without associated drainage : No CVAT Back: No midline bony tenderness to thoracic/lumbar/sacral spines Ext: Full ROM all 4 extremities and Normal peripheral perfusion and pulses Neuro: Alert normally oriented Skin: No rash or lesion MEDICAL DECISION MAKING and ED COURSE Nursing triage and assessment notes reviewed and incorporated. Review of External (Non- ED) Notes: see HPI Independent Test Interpretation: see ED course Evaluated by EM attending Ajay Foy Course: ED Course as of 05/21/24 1559 Sun May 21, 2024 1540 Basic Metabolic Panel(!): Glucose 115(!) Sodium 138 Potassium 4.3 Carbon Dioxide 27 Chloride 102 BUN 11 Creatinine 0.73 Calcium 8.2(!) Anion Gap 13 Estimated GFR 91 Personal interpretation: no critical electrolyte abnormalities, renal function at baseline. [JM] 1553 COMPLETE BLOOD COUNT W/DIFF (RAPID RESPONSE LABS)(!): WBC 12.3(!) RBC 3.42(!) Hemoglobin 7.9(!) Hematocrit 25.4(!) MCV 75(!) MCH 23.1(!) MCHC 30.9(!) Platelet 299 RDW-CV% 20.0(!) MPV 8.7 MDW 24(!) Leukocytosis, normocytic anemia. No thrombocytopenia. [JM] ED Course User Index [JM] Sujit Steen, DO Assessment AND Plan: 83-year-old male with a past medical history as noted above presenting today for concerns of postoperative complications. Was evaluated at outside hospital, where he was noted to have possible intra-abdominal abscess. Was transferred to [facility] for evaluation by surgery and central IR intervention. On arrival he was hemodynamically stable. Plan physical exam findings as noted above. Patient was nontoxic appearing, did have some moderate tenderness in the right upper quadrant. However, surgical scars appear well healed with no signs of soft tissue infection or dehiscence. Patient with dose of meropenem administered prior to transfer, did hold on additional antibiotics on arrival. Obtained preoperative labs. And interpreted as seen in ED course. Patient had imaging performed at outside hospital, and disc was provided and images were able to be downloaded by Radiology team. GRACIE was consulted come andevaluate the patient. As surgery was performed within the last 30 days, patient will be admitted to their service. Report was called, Dr. Gong is the accepting attending. ---- IMPRESSION AND DISPOSITION -- Clinical Impression Diagnosis Comment Postprocedural intraabdominal abscess (HCC) [T81.43XA, K65.1] Disposition: Admitted to Floor: Surgery Service. Report called to GRACIE Holman, 1541 (05/21/24 1541) The patient has received a medical screening examination and within reasonable clinical confidence the patient was stabilized within the capabilities of the emergency department and requires admission / observation. Counseling: Spoke with the patient and discussed today's findings, in addition to providing specific details for the plan of care and expected course. They were given the opportunity to ask questions. This note was created with the assistance o (more content not included)... Normal [facility] H AND Warren 05-21-2024 Ruby On Rails Consultant Authentication Interface Message Text -- Attestation signed by Nirav Gong MD at 05/22/2024 7:18 AM Teaching Physician Note: I saw and evaluated the patient. I personally obtained the godinez and critical portions of the history and physical exam. I reviewed the resident's documentation and discussed the patient with the resident. I agree with the resident's medical decision making as documented in the resident's note with the following addenda/exceptions: 83M s/p lap kyleigh (possibly subtotal) at [facility] on 05/04/24 who recently had his KELVIN drain removed in clinic. He developed abdominal pain and was found to have an intraabdominal abscess on CT scan. Transferred to [facility] for IR drainage. Will admit pt to EGS, start zosyn for intraabdominal infection and consult IR for drainage. Nirav Gong MD Division of Trauma, Critical Care, Gong, and Emergency General Surgery Department of Surgery [facility] DIVISION OF ACUTE CARE SURGERY EMERGENCY GENERAL SURGERY CONSULTATION, HISTORY AND PHYSICAL Reason for consultation: intraabdominal collection s/p lap cholecystectomy on 05/04 HPI: Valencia Brooks 83 year old male with PMH of GERD (gastroesophageal reflux disease) and Hypothyroidism. PSH of Lap cholecystectomy on 05/04/2024. Patient is a transfer from OSH for intraabdominal abscess. Presented with abdominal pain. Denies any vomiting. PMH: There is no previous medical history on file. PSH: There is no previous surgical history on file. MEDS: Refer to medication list ALL: Not on File FH: No family history on file. SH: Social History Socioeconomic History Marital status: Review Of Systems: Skin: negative Eyes: negative review of symptoms Ears/Nose/Throat: negative Respiratory: negative symptoms (no cough, hemoptysis, SOB, CAMPUZANO, PND, wheezing) Cardiovascular: negative symptoms (No CP/Pressure/Tightness, palpitations, orthopnea, PND, SOB, CAMPUZANO, edema, WYATT or vision change) Gastrointestinal: negative symptoms (no anorexia, n/v, indigestion, or diarrhea) Positive for abdominal pain Genitourinary: no urinary symptoms Neurologic: negative symptoms (no syncope, seizures, weakness, gait problems, numbness, burning pain, tremors, or memory loss) negative (no arthritic pain, no joint swelling, no muscle weakness) Psychiatric: negative (no sleep disturbance, anxiety, memory loss, disorientation, inattention, feelings of depression) Hematologic/Lymphatic/Immu nologic: negative (no anemia, bleeding, bruising) Endocrine: negative review of symptoms PHYSICAL EXAM: VITALS: Vitals: 05/21/24 1436 BP: 128/73 Pulse: 80 Resp: 16 Temp: 99 ???F (37.2 ???C) SpO2: 94% Physical Exam Vitals reviewed. Constitutional: Appearance: Normal appearance. HENT: Head: Normocephalic and atraumatic. Nose: Nose normal. Eyes: Pupils: Pupils are equal, round, and reactive to light. Cardiovascular: Rate and Rhythm: Normal rate. Pulmonary: Effort: Pulmonary effort is normal. Breath sounds: No stridor. Abdominal: Palpations: Abdomen is soft. There is no mass. Tenderness: There is abdominal tenderness. There is no right CVA tenderness, left CVA tenderness, guarding or rebound. Hernia: No hernia is present. Musculoskeletal: General: No swelling or tenderness. Cervical back: Neck supple. Skin: General: Skin is warm and dry. Neurological: General: No focal deficit present. Mental Status: He is alert and oriented to person, place, and time. Psychiatric: Mood and Affect: Mood normal. Behavior: Behavior normal. Thought Content: Thought content normal. Judgment: Judgment normal. LABS: CBC/PT/INR 05/21/2024 2:34 PM WBC 12.3 RBC 3.42 Hgb 7.9 Hct 25.4 MCV 75 RDW 20.0 Plt 299 aPTT 26 INR 1.14 Basic Metabolic Panel 05/21/2024 2:34 PM Na 138 K 4.3 Cl 102 CO2 27 Gap 13 Glu 115 BUN 11 Cr 0.73 Ca 8.2 Arterial Blood Gases None IMAGING (personally reviewed by me): ASSESSMENT/RECOMMENDATIONS : Valencia Brooks is a 83 year old male who is a transfer from [facility] for a concern of intraabdominal abscess. Patient is s/p lap cholecystectomy on 05/04/2024 with KELVIN drain removed on last Wednesday. He is presenting with abdominal pain started yesterday, denies any nausea or vomiting. Afebrile, and WCC of 12.3. On exam, mild tender abdomen, no rebound tenderness, not peritonitic. Plan: - Admission with EGS to [facility] - start IV abx: Zosyn - Pain control: Tylenol scheduled, PRN Oxycodone and dilaudid - AM labs: CBC, BMP, INR - IR for percutaneous abdominal drain tomorrow - DIET: can have regular diet now, NPO MN - Hold DVT ppx Carlos Umana MD vascular surgery resident Emergency General Surgery Normal [facility] - Blood bankon ABO and Rh group Nom (Bld) Blood group B Rh(D) positive [facility] MANUAL DIFF AND MORPHon 04-27 Cells Counted Total (Bld) [#] [facility] Microcytes Ql (Bld) Slight [facility] Ovalocytes LM Ql (Bld) Few [facility] RBC.hypochromic/100 RBC Auto (Bld) Moderate [facility] Schistocytes LM Ql (Bld) Few [facility] CELLS COUNTED TOTAL # IN BLOOD Normal [facility] Comment on above: Performed By: #### C MD ZAYDAIFF ####[facility] [id number] [place] [address], [place], FRAGMENTED RBC Few Normal [facility] Comment on above: Performed By: #### AZRA VIGIL ####[facility] [id number] [place], [place], HYPOCHROMASIA Moderate Normal [facility] Comment on above: Performed By: #### AZRA VIGIL ####[facility] [id number] [place], [place], MICROCYTOSIS Slight Normal [facility] Comment on above: Performed By: #### AZRA VIGIL ####[facility] [id number] [place], [place], OVALOCYTES Few Normal [facility] Comment on above: Performed By: #### AZRA VIGIL ####[facility] [id number] [place], [place], No Panel InformationOrdered By: Marisa Herndon on 05-21-2024 [facility] No Panel Informationon 05-21 [facility] PARTIAL THROMBOPLASTIN TIMEo n 05-21-2024 aPTT Coag (Bld) [Time] 26 s [facility] Interpretation and review of laboratory results Normal [facility] aPTT Coag (Bld) [Time] 26 s Normal 25-37 [facility] Comment on above: Performed By: #### P T, APTT ####[facility] [id number] [place], [place], PROTHROMBIN TIME AND INRon 0 05-21-2024 INR Coag (PPP) [Relative time] 1.14 {INR} High 0.90 - 1.10 [facility] Interpretation and review of laboratory results Abnormal [facility] PT Coag (PPP) [Time] 12.8 s [facility] INR Coag (PPP) [Relative time] 1.14 {INR} High 0.90-1.10 [facility] Comment on above: Performed By: #### P T, APTT ####[facility] [id number] [place], [place], PT Coag (PPP) [Time] 12.8 s Normal 9.7-12.9 [facility] Comment on above: Performed By: #### P T, APTT ####[facility] [id number] [place], [place], Progress Noteson 05-21-2024 Ruby On Rails Consultant Authentication Interface Message Text . Provider Called Report To (GRACIE [place] floor, 8:03 PM): GRACIE Holman, 1541 (05/21/24 1541) Normal [facility] Ruby On Rails Consultant Authentication Interface Message Text Pharmacy Renal Dosing Service Name: Valencia Brooks Age: [age] year old Gender: male Ht: 69 per care everywhere Wt: 88.9 kg per care everywhere Patient is currently prescribed the following renally monitored Medication(s): Renally Adjusted Meds (720h ago, onward) Ordered Stop 05/21/24 1615 piperacillin-tazobactam (ZOSYN) 3,375 mg in sodium chloride 10 mL IV push 3.375 g, Intravenous, 200 mL/hr, EVERY 6 HOURS ANTIBIOTIC Question: Suspected Source/Reason for Therapy Answer: Gastrointestinal/Intraabdo gene -- Relevant objective data reviewed: CrCl 86 using SCr 0.73 today and adjusted body weight 78 kg Assessment and Recommendation: The medication required adjustment for renal function at the time of initial order verification. The original medication order zosyn 3.375 gm q8h has been updated to zosyn 3.375 gm q6h. Medication therapy has been updated per consult agreement. Edith Bhat, [facility] ED Department of Pharmacy Services Normal [facility] TYPE AND SCREENon 05-21-2024 ABO and Rh group Nom (Bld) Blood group B Rh(D) positive [facility] and [facility] Nom (Bld) No Previous [facility] Ql Negative [facility] ABO and Rh group Nom (Bld) Blood group B Rh(D) positive Normal [facility] Comment on above: Performed By: #### T S #### [facility] [address] [place], [place], ABO and Rh group Nom (Bld) No Previous Results Normal [facility] Comment on above: Performed By: #### T S #### [facility] [address] [place], [place], ABSC INT Negative Normal [facility] Comment on above: Performed By: #### T S #### [facility] [address] [place], [place], Telephone Encounteron 2024 Ruby On Rails Consultant Authentication Interface Message Text Hospital Medicine PIC Patient: Valencia Brooks Gender: male : 1940 Age: [age] year old Connected [facility] spoke to [facility] ED, spoke to a Dr Fink. Recent Lap [facility] at [facility] by Dr Bass on May 04 Drain removed last Wednesday Presenting with progressive pain no fever , near syncope last evening ( describer by ED MD vaso vagal like) CT showing large abscess / Started on Meropenem Cross cover for Dr Bass at [facility] defering to Medicine admit. Not appropriate for floor direct admit Its a surgical complication / with recent surgery and drain removal / deferred to Surgery service for admit , or more appropriate ED to ED eval . [facility] to connect to ED . Rafaela Christine MD Normal [facility] Surgical Pathology Reporton 05-12-2024 Surgical Pathology Report [facility] [address] [facility] [place] [address]- Surgical Pathology Report Collected Date/Time: 05/05/2024 12:50 EST Pathologist: Sloan LEONARD PhD, Remington Davis Received Date/Time: 05/05/2024 13:37 EST Bella LEONARD, Rosi Hinton MD, Rosi Smallwood Surgical Pathology Report - 05/12/2024 14:57 [...] it has a martinez/red/pink thickened granular appearance. Ferryboat Operator Cable portion is submitted in a total of five cassettes: 1 - Assumed cystic duct opening 2 -5 Sections of gallbladder; 4 - Contains the outer serosal nodular appearance DC:[facility] Microscopic Description Microscopic examination performed unless gross only specified. Normal [facility] Comment on above: Performed By: #### 4 [id number] #### [facility] [address] [place] [address] Coding Queryon 05-10-2024 Coding Query Coding Query From: Joselo ALVARENGA, Berna To: Bella LEONARD, Rosi Chino; Cc: Ju Jerry; Sent: 05/10/2024 10:09:46 [...] desired or expected. Thank you! Berna [phone] Grey [facility] Main OR Intraoperative Recor don 05-08-2024 Main OR Intraoperative Record Main OR Intraoperative Record IntraOp Document Type FT Summary Primary Physician: Rosi Hinton MD Finalized Date/Time: 05/08/24 08:03:55 Pt. Name: VALENCIA BROKOS Aj/Sex: 1940 Male Med Rec #: [id number] Physician: Rosi Hinton MD Financial #: [id number] Pt. Type: I Room/Bed: [place] [address] Admit/Disch: 05/04/24 20:49:17 - 05/07/24 13:09:16 Institution: [...] 3 Case Attendee Julio Cesar HIGGINBOTHAM, Alvaro Hinton MD, Rosi Martínez RN, Steph Astorga Role Performed CLIENT HR MANAGER Surgeon - Primary Beef Grader - Primary Time In 05/05/24 11:32:00 05/05/24 11:54:00 05/05/24 11:32:00 Time Out 05/05/24 13:27:00 05/05/24 13:27:00 05/05/24 13:27:00 Procedure CHOLECYSTECTOMY CHOLECYSTECTOMY CHOLECYSTECTOMY LAPAROSCOPIC W/ CHOLANGI LAPAROSCOPIC W/ CHOLANGI LAPAROSCOPIC W/ CHOLANGI Comments DR. MCCULLOUGH SUPERVISING Last Modified By: Mauricio ALVARENGA, Steph Martínez RN, Steph Martínez RN, Steph Astorga 05/05/24 Maria T Astorga 05/05/24 Maria T Atsorga 05/05/24 13:27:16 13:27:16 13:27:16 Entry 4 Entry 5 Entry 6 Case Attendee Julissa Barrios LPN, RN, Mallorie Jenkins PA-C Role Performed Scrub - Primary Staff - Other PA/FUEL CELL DESIGNER Time In 05/05/24 11:32:00 05/05/24 11:32:00 05/05/24 11:54:00 Time Out 05/05/24 13:27:00 05/05/24 11:52:00 05/05/24 13:27:00 Procedure CHOLECYSTECTOMY CHOLECYSTECTOMY CHOLECYSTECTOMY LAPAROSCOPIC W/ CHOLANGI LAPAROSCOPIC W/ CHOLANGI LAPAROSCOPIC W/ CHOLANGI Comments helping in room Last Modified By: Mauricio ALVARENGA, Steph Martínez RN, Steph Martínez RN, Steph Astorga 05/05/24 Maria T Astorga 05/05/24 Maria T sAtorga 05/05/24 13:27:16 13:27:16 13:27:16 Perioperative Protocols FT [...] PreOp Antibiotic Yes Time Out Bella LEONARD, Rosi Chino, Given Participants Alvaro Harrell CRNA, Ferrer RN, Steph Astorga, Julissa Barrios LPN Time Out Complete 05/05/24 11:57:00 Outcomes [...] Primary Procedure Yes Primary Surgeon Bella LEONARD, Rosi Chino Start 05/05/24 11:58:00 Stop 05/05/24 13:19:00 [...] and tissue Entry 1 Skin Integrity Intact, Aurora, Warm, & Skin Abnormality No Dry Outcomes Met? Yes Last Modified By: Steph Martínez RN 05/05/24 12:22:17 Post-Care Text: The patient is free from signs and symptoms (more content not included)... Normal [facility] BMPon 05-07-2024 Anion gap [Moles/Vol] 10 mmol/L Normal 6-16 [facility] Comment on above: Performed By: #### 2 [id number] #### [facility] [address] [place] [address] Calcium [Mass/Vol] 8.2 mg/dL Low 8.9-11.1 [facility] Comment on above: Performed By: #### 2 [id number] #### [facility] [address] [place] [address] Chloride [Moles/Vol] 104 mmol/L Normal 101-111 [facility] Comment on above: Performed By: #### 2 [id number] #### [facility] [address] [place] [address] CO2 [Moles/Vol] 26 mmol/L Normal 21-31 [facility] Comment on above: Performed By: #### 2 [id number] #### [facility] [address] [place] [address] Creatinine [Mass/Vol] 0.8 mg/dL Normal 0.5-1.3 [facility] Comment on above: Performed By: #### 2 [id number] #### [facility] [address] [place] [address] Glucose [Mass/Vol] 109 mg/dL Normal 55-199 [facility] Comment on above: Performed By: #### 2 969605 #### [facility] [address] [place] [address] Potassium [Moles/Vol] 3.6 mmol/L Normal 3.5-5.3 [facility] Comment on above: Performed By: #### 2 [id number] #### [facility] [address] [place] [address] Sodium [Moles/Vol] 136 mmol/L Normal 135-145 [facility] Comment on above: Performed By: #### 2 596631 #### [facility] [address] [place] [address] Urea nitrogen [Mass/Vol] 17 mg/dL Normal 5-21 [facility] Comment on above: Performed By: #### 2 [id number] #### [facility] [address] [place] [address] Urea nitrogen/Creatinine [Mass ratio] 21 No Units High 10-20 [facility] Comment on above: Performed By: #### 2 [id number] #### [facility] [address] [place] [address] CBC w/ Auto Diffon 5 Acanthocytes LM Ql (Bld) PRESENT Invalid Interpretation Code [facility] Comment on above: Performed By: #### 2 [id number] #### [facility] [address] [place] [address] Basophils/100 WBC (Bld) 0.3 % Normal 0.0-2.0 [facility] Comment on above: Performed By: #### 2 993907 #### [facility] [address] [place] [address] Basophils/Leukocytes Auto (Bld) [Pure # fraction] 0.0 E9/L Normal 0.0-0.2 [facility] Comment on above: Performed By: #### 2 [id number] #### [facility] [address] [place] [address] Elliptocytes LM Ql (Bld) PRESENT Invalid Interpretation Code [facility] Comment on above: Performed By: #### 2 [id number] #### [facility] [address] [place] [address] Eosinophils (Bld) [#/Vol] 0.1 E9/L Normal 0.0-0.5 [facility] Comment on above: Performed By: #### 2 977842 #### [facility] [address] [place] [address] Eosinophils/100 WBC (Bld) 0.8 % Normal 0.0-8.0 [facility] Comment on above: Performed By: #### 2 149981 #### [facility] [address] [place] [address] Erythrocyte distribution width (RBC) [Ratio] 19.6 % High 10.9-14.2 [facility] Comment on above: Performed By: #### 2 193730 #### [facility] [address] [place] [address] Hematocrit (Bld) [Volume fraction] 27.9 % Low 37.7-49.0 [facility] Comment on above: Performed By: #### 2 824229 #### [facility] [address] [place] [address] Hemoglobin (Bld) [Mass/Vol] 9.0 g/dL Low 13.5-17.5 [facility] Comment on above: Performed By: #### 2 915585 #### [facility] [address] [place] [address] Hypochromia Auto Ql (Bld) PRESENT Invalid Interpretation Code [facility] Comment on above: Performed By: #### 2 285509 #### [facility] [address] [place] [address] Lymphocytes (Bld) [#/Vol] 1.3 E9/L Normal 1.0-4.0 [facility] Comment on above: Performed By: #### 2 406881 #### [facility] [address] [place] [address] Lymphocytes/100 WBC (Bld) 11.8 % Low 14.0-50.0 [facility] Comment on above: Performed By: #### 2 858814 #### [facility] [address] [place] [address] MCH (RBC) [Entitic mass] 23.3 pg Low 27.0-34.0 [facility] Comment on above: Performed By: #### 2 [id number] #### [facility] [address] [place] [address] MCHC (RBC) [Mass/Vol] 32.1 g/dL Normal 31.4-36.0 [facility] Comment on above: Performed By: #### 2 692532 #### [facility] [address] [place] [address] MCV (RBC) [Entitic vol] 72.6 fL Low 80.0-100.0 [facility] Comment on above: Performed By: #### 2 910758 #### [facility] [address] [place] [address] Monocytes (Bld) [#/Vol] 1.0 E9/L Normal 0.2-1.0 [facility] Comment on above: Performed By: #### 2 827449 #### [facility] [address] [place] [address] Neutrophils (Bld) [#/Vol] 9.0 E9/L High 2.0-7.5 [facility] Comment on above: Performed By: #### 2 622265 #### [facility] [address] [place] [address] Neutrophils/100 WBC (Bld) 78.3 % High 36.0-75.0 [facility] Comment on above: Performed By: #### 2 610049 #### [facility] [address] [place] [address] Platelet mean volume (Bld) [Entitic vol] 9.1 fL Normal 6.4-10.8 [facility] Comment on above: Performed By: #### 2 157123 #### [facility] [address] [place] [address] Platelets (Bld) [#/Vol] 126.0 E9/L Low 150.0-500. 0 [facility] Comment on above: Performed By: #### 2 373666 #### [facility] [address] [place] [address] RBC (Bld) [#/Vol] 3.8 E12/L Low 4.3-5.9 [facility] Comment on above: Performed By: #### 2 032341 #### [facility] [address] [place] [address] RBC size Nom (Bld) SEE MORPHOLOGY Invalid Interpretation Code [facility] Comment on above: Performed By: #### 2 020260 #### [facility] [address] [place] [address] WBC corrected for nucl RBC Auto (Bld) [#/Vol] 11.5 E9/L High 4.0-11.0 [facility] Comment on above: Performed By: #### 2 152883 #### [facility] [address] [place] [address] CHEMISTRYOrdered By: Lab ROP User on 05-07-2024 Glucose [Mass/Vol] 204 mg/dL High 55 - 99 mg/dL [facility] POC Subsection Comment on above: Result Comment: Margarito mohan RN/ POC Username LIOR GALARZA Invalid Interpretation Code [facility] POC Subsection Sodium [Moles/Vol] 507229022901 mmol/L Invalid Interpretation Code [facility] POC Subsection Sodium [Moles/Vol] 543045728 mmol/L Invalid Interpretation Code [facility] POC Subsection Glucose [Mass/Vol] 106 mg/dL High 55 - 99 mg/dL [facility] POC Subsection Comment on above: Result Comment: Margarito mohan RN/ POC Username LIOR GALARZA Invalid Interpretation Code [facility] POC Subsection Sodium [Moles/Vol] [id number] mmol/L Invalid Interpretation Code [facility] POC Subsection Sodium [Moles/Vol] 093373912 mmol/L Invalid Interpretation Code [facility] POC Subsection CHEMISTRYOrdered By: SYSTEM SYSTEM on 05-07-2024 Albumin [Mass/Vol] 3.3 g/dL Normal 3.3 - 5.0 gm/dL [facility] Albumin/Globulin [Mass ratio] 1.2 {ratio} Normal 1.1 - 2.2 [facility] ALP [Catalytic activity/Vol] 58 [iU]/d Normal 21 - 98 Int._Unit/ L [facility] ALT No additional P-5'-P [Catalytic activity/Vol] 8 [iU]/d Normal 6 - 46 Int._Unit/ L [facility] Anion gap [Moles/Vol] 10 mmol/L Normal 6 - 16 mEq/L [facility] AST [Catalytic activity/Vol] 15 [iU]/d Normal 5 - 43 Int._Unit/ L [facility] Bilirubin [Mass/Vol] 0.6 mg/dL Normal [...] Chem eGFR 89 mL/min/1.73 m2 Normal >=59mL/min /1.73 m2 [facility] Globulin (S) [Mass/Vol] 2.7 [...] 04-26 Glucose [Mass/Vol] 204 mg/dL High 55-99 [facility] Comment on above: Result Comment: Margarito mohan RN/ Performed By: #### 2 [id number] #### [facility] [address] [place] [address] Glucose [Mass/Vol] 106 mg/dL High 55-99 [facility] Comment on above: Result Comment: Margarito PETERS Performed By: #### 2 [id number] #### [facility] [address] [place] [address] Discharge Note-Nursingon Discharge Note-Nursing Discharge Note-Nursing Significant other Portia at bedside, instructed and observed how to empty KELVIN drain including how to squeeze air back out of bulb to resume suction. Portia verbalized understanding and had no questions. Given sterile cup and asked to empty drain at least every 6 hours and document information to take to clinic follow up. Normal [facility] Discharge Note-Nursing Discharge Note-Nursing VALENCIA BROOKS :1940 Visit Date:05/04/2024 Inpatient Discharge Instructions Your Care Team Admitting Physician - Rosi Hinton MD Reason for Your Visit Acute Cholecysty [...] Comments: Call to schedule/confirm followup appointment Where: [address] [facility] [address], second floor, [address] [place] [address]- [phone] Follow Up with BISHOP TURCIOS When: Comments: Follow-up with PCP for chronic medical conditions Where: [address] [place] [phone] Business (1) Medications What How Much When Why Instructions Next Dose New ciprofloxacin (Cipro 500 mg Tab) 1 Tablets By Mouth Every 12 hours Duration: 2 Days Pickup at [facility] 05/07/21 12pm New docusate (Colace 100 mg Cap) 1 Capsules By Mouth 2 times a day Duration: 10 Days Pickup at [facility] 05/07/24 9pm New metronidazole (Flagyl 500 mg Tab) 1 Tablets By Mouth Every 8 hours Duration: 2 Days Pickup at [facility] 05/07/24 12pm New oxycodone (oxyCODONE 5 mg Tab) 0.5 Tablets By Mouth Every 6 hours as needed for Pain 8-10 Acute cholecystitis Duration: 3 Days Pickup at [facility] as needed 3 times a day New senna (senna 8.6 mg Tab) 1 Tablets By Mouth Once a day (at bedtime) Duration: 10 Days Pickup at [facility] 05/07/24 9pm Unchanged acetaminophen (Tylenol 8 [...] Mouth Every day as normal Pharmacy Information [facility]: [address] [place], [place] [id number] [phone] Test Results CBC BMP WBC: 11.5 E9/L [...] receiving treatment for. Chronic GERD [employer] [place], [place] Marty Benson MD, FACS DISCHARGE INSTRUCTIONS CARING FOR YOUR REID-BOLDEN DRAINAGE TUBE You have been discharged with a Reid-Bolden drainage tube. This tube will help healing and reduce the risk of infection by removing fluid through your incision. It is attached to (more content not included)... Normal [facility] HEMATOLOGYOrdered By: SYSTEM SYSTEM on 05-07-2024 Acanthocytes [...] 05-07-2024 Albumin [Mass/Vol] 3.3 g/dL Normal 3.3-5.0 [facility] Comment on above: Performed By: #### 2 [id number] #### [facility] [address] [place] [address] Albumin/Globulin (S) [Mass conc ratio] 1.2 Normal 1.1-2.2 [facility] Comment on above: Performed By: #### 2 576641 #### [facility] [address] [place] [address] ALP [Catalytic activity/Vol] 58 Int._Unit/L Normal 21-98 [facility] Comment on above: Performed By: #### 2 [id number] #### [facility] [address] [place] [address] ALT No additional P-5'-P [Catalytic activity/Vol] 8 Int._Unit/L Normal 6-46 [facility] Comment on above: Performed By: #### 2 [id number] #### [facility] [address] [place] [address] AST [Catalytic activity/Vol] 15 Int._Unit/L Normal 5-43 [facility] Comment on above: Performed By: #### 2 [id number] #### [facility] [address] [place] [address] Bilirubin [Mass/Vol] 0.6 mg/dL Normal 0.0-1.1 [facility] Comment on above: Performed By: #### 2 591345 #### [facility] [address] [place] [address] Bilirubin.direct [Mass/Vol] 0.1 mg/dL Normal 0.0-0.4 [facility] Comment on above: Performed By: #### 2 722823 #### [facility] [address] [place] [address] Bilirubin.indirect [Mass or moles/Vol] 0.5 mg/dL Normal 0.1-0.9 [facility] Comment on above: Performed By: #### 2 512084 #### [facility] [address] [place] [address] Globulin (S) [Mass/Vol] 2.7 g/dL Normal 1.4-4.0 [facility] Comment on above: Performed By: #### 2 553964 #### [facility] [address] [place] [address] Protein [Mass/Vol] 6.0 g/dL Normal 6.0-7.8 [facility] Comment on above: Performed By: #### 2 917785 #### [facility] [address] [place] [address] eGFRon 05-07-2024 eGFR 89 mL/min/1.73 m2 Normal >=59 [facility] Comment on above: Performed By: #### 1 [id number] #### [facility] [address] [place] [address] ABO/Rh History Checkon 05-06 ABO/Rh History Check Type verified by second s Normal [facility] Comment on above: Performed By: #### 1 [id number] #### [facility] [address] [place] [address] ABO/Rh Retypeon 05-06-2024 ABO/Rh Retype Interp Positive Invalid Interpretation Code [facility] Comment on above: Performed By: #### 1 [id number] #### [facility] [address] [place] [id number] BLOOD BANKOrdered By: Malena Cifuentes on 05-06-2024 ABO/Rh Retype Interp Positive Invalid Interpretation Code [facility] BB Subsection BMPon 05-06-2024 Anion gap [Moles/Vol] 8 mmol/L Normal 6-16 [facility] Comment on above: Performed By: #### 2 [id number] #### [facility] [address] [place] [address] Calcium [Mass/Vol] 8.3 mg/dL Low 8.9-11.1 [facility] Comment on above: Performed By: #### 2 093810 #### [facility] [address] [place] [address] Chloride [Moles/Vol] 104 mmol/L Normal 101-111 [facility] Comment on above: Performed By: #### 2 420439 #### [facility] [address] [place] [address] CO2 [Moles/Vol] 27 mmol/L Normal 21-31 [facility] Comment on above: Performed By: #### 2 923377 #### [facility] [address] [place] [address] Creatinine [Mass/Vol] 0.8 mg/dL Normal 0.5-1.3 [facility] Comment on above: Performed By: #### 2 227299 #### [facility] [address] [place] [address] Glucose [Mass/Vol] 136 mg/dL Normal 55-199 [facility] Comment on above: Performed By: #### 2 627705 #### [facility] [address] [place] [address] Potassium [Moles/Vol] 3.9 mmol/L Normal 3.5-5.3 [facility] Comment on above: Performed By: #### 2 092798 #### [facility] [address] [place] [address] Sodium [Moles/Vol] 135 mmol/L Normal 135-145 [facility] Comment on above: Performed By: #### 2 498346 #### [facility] [address] [place] [address] Urea nitrogen [Mass/Vol] 17 mg/dL Normal 5-21 [facility] Comment on above: Performed By: #### 2 376292 #### [facility] [address] [place] [address] Urea nitrogen/Creatinine [Mass ratio] 21 No Units High 10-20 [facility] Comment on above: Performed By: #### 2 [id number] #### [facility] [address] [place] [address] CBC w/ Auto Diffon 5 Acanthocytes LM Ql (Bld) PRESENT Invalid Interpretation Code [facility] Comment on above: Performed By: #### 2 448255 #### [facility] [address] [place] [address] Basophils/100 WBC (Bld) 0.2 % Normal 0.0-2.0 [facility] Comment on above: Performed By: #### 2 092581 #### [facility] [address] [place] [address] Basophils/Leukocytes Auto (Bld) [Pure # fraction] 0.0 E9/L Normal 0.0-0.2 [facility] Comment on above: Performed By: #### 2 873054 #### [facility] [address] [place] [address] Eosinophils (Bld) [#/Vol] 0.0 E9/L Normal 0.0-0.5 [facility] Comment on above: Performed By: #### 2 290688 #### [facility] [address] [place] [address] Eosinophils/100 WBC (Bld) 0.0 % Normal 0.0-8.0 [facility] Comment on above: Performed By: #### 2 452861 #### [facility] [address] [place] [address] Erythrocyte distribution width (RBC) [Ratio] 19.4 % High 10.9-14.2 [facility] Comment on above: Performed By: #### 2 065516 #### [facility] [address] [place] [address] Hematocrit (Bld) [Volume fraction] 25.5 % Low 37.7-49.0 [facility] Comment on above: Performed By: #### 2 630290 #### [facility] [address] [place] [address] Hemoglobin (Bld) [Mass/Vol] 8.2 g/dL Low 13.5-17.5 [facility] Comment on above: Performed By: #### 2 704264 #### [facility] [address] [place] [address] Hypochromia Auto Ql (Bld) PRESENT Invalid Interpretation Code [facility] Comment on above: Performed By: #### 2 616089 #### [facility] [address] [place] [address] Lymphocytes (Bld) [#/Vol] 0.8 E9/L Low 1.0-4.0 [facility] Comment on above: Performed By: #### 2 [id number] #### [facility] [address] [place] [address] Lymphocytes/100 WBC (Bld) 4.0 % Low 14.0-50.0 [facility] Comment on above: Performed By: #### 2 782281 #### [facility] [address] [place] [address] MCH (RBC) [Entitic mass] 23.2 pg Low 27.0-34.0 [facility] Comment on above: Performed By: #### 2 746301 #### [facility] [address] [place] [address] MCHC (RBC) [Mass/Vol] 32.0 g/dL Normal 31.4-36.0 [facility] Comment on above: Performed By: #### 2 [id number] #### [facility] [address] [place] [address] MCV (RBC) [Entitic vol] 72.6 fL Low 80.0-100.0 [facility] Comment on above: Performed By: #### 2 373157 #### [facility] [address] [place] [address] Microcytes Ql (Bld) PRESENT Invalid Interpretation Code [facility] Comment on above: Performed By: #### 2 983141 #### [facility] [address] [place] [address] Monocytes (Bld) [#/Vol] 1.6 E9/L High 0.2-1.0 [facility] Comment on above: Performed By: #### 2 [id number] #### [facility] [address] [place] [address] Neutrophils (Bld) [#/Vol] 17.4 E9/L High 2.0-7.5 [facility] Comment on above: Performed By: #### 2 [id number] #### [facility] [address] [place] [address] Neutrophils/100 WBC (Bld) 87.7 % High 36.0-75.0 [facility] Comment on above: Performed By: #### 2 [id number] #### [facility] [address] [place] [address] Ovalocytes LM Ql (Bld) PRESENT Invalid Interpretation Code [facility] Comment on above: Performed By: #### 2 [id number] #### [facility] [address] [place] [address] Platelet 109.0 E9/L Low 150.0-500. 0 [facility] Comment on above: Performed By: #### 2 [id number] #### [facility] [address] [place] [address] Platelet mean volume (Bld) [Entitic vol] 8.8 fL Normal 6.4-10.8 [facility] Comment on above: Performed By: #### 2 [id number] #### [facility] [address] [place] [address] Poikilocytosis Auto Ql (Bld) PRESENT Invalid Interpretation Code [facility] Comment on above: Performed By: #### 2 [id number] #### [facility] [address] [place] [address] RBC (Bld) [#/Vol] 3.5 E12/L Low 4.3-5.9 [facility] Comment on above: Performed By: #### 2 701393 #### [facility] [address] [place] [address] RBC size Nom (Bld) SEE MORPHOLOGY Invalid Interpretation Code [facility] Comment on above: Performed By: #### 2 081601 #### [facility] [address] [place] [address] WBC corrected for nucl RBC Auto (Bld) [#/Vol] 19.9 E9/L High 4.0-11.0 [facility] Comment on above: Performed By: #### 2 [id number] #### [facility] [address] [place] [address] CHEMISTRYOrdered By: Lab ROP User on 05-06-2024 Glucose [Mass/Vol] 143 mg/dL High 55 - 99 mg/dL [facility] POC Subsection Comment on above: Result Comment: Margarito mohan RN/ POC Username YVETTE HUITRON Invalid Interpretation Code [facility] POC Subsection Sodium [Moles/Vol] 645085250704 mmol/L Invalid Interpretation Code [facility] POC Subsection Sodium [Moles/Vol] [id number] mmol/L Invalid Interpretation Code [facility] POC Subsection CHEMISTRYOrdered By: SYSTEM SYSTEM on 05-06-2024 Albumin [Mass/Vol] 3.2 g/dL Low 3.3 - 5.0 gm/dL Remisol Chem Albumin/Globulin [Mass ratio] 1.2 {ratio} Normal 1.1 - 2.2 Remisol Chem ALP [Catalytic activity/Vol] 54 [iU]/d Normal 21 - 98 Int._Unit/ L Remisol Chem ALT No additional P-5'-P [Catalytic activity/Vol] 9 [iU]/d Normal 6 - 46 Int._Unit/ L Remisol Chem Anion gap [Moles/Vol] 8 mmol/L Normal 6 - 16 mEq/L Remisol Chem AST [Catalytic activity/Vol] 16 [iU]/d Normal 5 - 43 Int._Unit/ L Remisol Chem Bilirubin [Mass/Vol] 0.6 mg/dL Normal [...] Chem eGFR 89 mL/min/1.73 m2 Normal >=59mL/min /1.73 m2 Remisol Chem Globulin (S) [Mass/Vol] 2.6 [...] 34.2 s Normal 25.1 - 36.5 second(s) [facility] Auto Coag Comment on above: Interpretive Data: [...] the same coagulation reagent and instrumentation as [facility]. Currently there are no coagulation studies available worldwide for children to 14 days, and no normal ranges. Heparin therapeutic range (represented by Anti-Factor Xa activity of 0.2 - 0.4 U/mL) corresponds to PTT of 56.6 - 109.0 sec. INR Coag (PPP) [Relative time] 1.36 {INR} Invalid Interpretation Code [facility] Auto Coag Comment on above: Interpretive Data: I NR results are specifically intended to assess patients stabilized on long-term Anticoagulation therapy suggested INR s Less Intensive Anticoagulation 2.0 3.0 Conventional Range 3.0 4.5 PT Coag (PPP) [Time] 15.3 s High 9.4 - 1 2.5 second(s) [facility] Auto Coag Comment on above: Interpretive Data: [...] the same coagulation reagent and instrumentation as [facility]. Currently there are no coagulation studies available worldwide for children to 14 days, and no normal ranges. Capillary Glucose POCon 04-26 Glucose [Mass/Vol] 143 mg/dL High 55-99 [facility] Comment on above: Result Comment: Margarito PETERS Performed By: #### 2 [id number] #### [facility] [address] [place] [address] Glucose [Mass/Vol] 120 mg/dL High 55-99 [facility] Comment on above: Result Comment: Margarito PETERS Performed By: #### 2 [id number] #### [facility] [address] [place] [address] Glucose [Mass/Vol] 110 mg/dL High 55-99 [facility] Comment on above: Result Comment: Margarito PETERS Performed By: #### 2 [id number] #### [facility] [address] [place] [address] Glucose [Mass/Vol] 108 mg/dL High 55-99 [facility] Comment on above: Result Comment: Margarito mohan RN/ Performed By: #### 2 [id number] #### [facility] [address] [place] [address] HEMATOLOGYOrdered By: SYSTEM SYSTEM on 05-06-2024 Acanthocytes [...] 05-06-2024 Albumin [Mass/Vol] 3.2 g/dL Low 3.3-5.0 [facility] Comment on above: Performed By: #### 2 [id number] #### [facility] [address] [place] [address] Albumin/Globulin (S) [Mass conc ratio] 1.2 Normal 1.1-2.2 [facility] Comment on above: Performed By: #### 2 [id number] #### [facility] [address] [place] [address] ALP [Catalytic activity/Vol] 54 Int._Unit/L Normal 21-98 [facility] Comment on above: Performed By: #### 2 [id number] #### [facility] [address] [place] [address] ALT No additional P-5'-P [Catalytic activity/Vol] 9 Int._Unit/L Normal 6-46 [facility] Comment on above: Performed By: #### 2 [id number] #### [facility] [address] [place] [address] AST [Catalytic activity/Vol] 16 Int._Unit/L Normal 5-43 [facility] Comment on above: Performed By: #### 2 611605 #### [facility] [address] [place] [address] Bilirubin [Mass/Vol] 0.6 mg/dL Normal 0.0-1.1 [facility] Comment on above: Performed By: #### 2 [id number] #### [facility] [address] [place] [address] Bilirubin.direct [Mass/Vol] 0.1 mg/dL Normal 0.0-0.4 [facility] Comment on above: Performed By: #### 2 648200 #### [facility] [address] [place] [address] Bilirubin.indirect [Mass or moles/Vol] 0.5 mg/dL Normal 0.1-0.9 [facility] Comment on above: Performed By: #### 2 [id number] #### [facility] [address] [place] [address] Globulin (S) [Mass/Vol] 2.6 g/dL Normal 1.4-4.0 [facility] Comment on above: Performed By: #### 2 875196 #### [facility] [address] [place] [address] Protein [Mass/Vol] 5.8 g/dL Low 6.0-7.8 [facility] Comment on above: Performed By: #### 2 947296 #### [facility] [address] [place] [address] PT & PTTon 05-06-2024 aPTT Coag (PPP) [Time] 34.2 second(s) Normal 25.1-36.5 [facility] Comment on above: Result Comment: Para meter [...] the same coagulation reagent and instrumentation as [facility]. Currently there are no coagulation studies available worldwide for children to 14 days, and no normal ranges. Heparin therapeutic range (represented by Anti-Factor Xa activity of 0.2 - 0.4 U/mL) corresponds to PTT of 56.6 - 109.0 sec. Performed By: #### 1 [id number] #### [facility] [address] [place] [address] INR Coag (PPP) [Relative time] 1.36 {INR} Invalid Interpretation Code [facility] Comment on above: Result Comment: INR results are specifically intended to assess patients stabilized on long-term Anticoagulation therapy suggested INR???s ???Less Intensive Anticoagulation??? 2.0 ??? 3.0 Conventional Range 3.0 ??? 4.5 Performed By: #### 1 [id number] #### [facility] [address] [place] [address] PT Coag (PPP) [Time] 15.3 second(s) High 9.4-12.5 [facility] Comment on above: Result Comment: 15 d [...] the same coagulation reagent and instrumentation as [facility]. Currently there are no coagulation studies available worldwide for children to 14 days, and no normal ranges. Performed By: #### 1 [id number] #### [facility] [address] [place] [address] eGFRon 05-06-2024 eGFR 89 mL/min/1.73 m2 Normal >=59 [facility] Comment on above: Performed By: #### 1 [id number] #### [facility] [address] [place] [address] ABO/Rhon 05-05-2024 ABO/Rh Positive Invalid Interpretation Code [facility] Comment on above: Performed By: #### 2 [id number] #### [facility] [address] [place] [address] ABSCon 05-05-2024 ABSC Gel Interp Negative Normal [facility] Comment on above: Performed By: #### 1 [id number] #### [facility] [address] [place] [address] AZTREONAM:SUSC:PT:ISOLATE:OR DQN:MICOrdered By: Erin Jonas on 05-05-2024 Aztreonam LAMAR [Susc] 1+ Escherichia coli 1+ Escherichia coli #2 Different Biotype. [facility] Aztreonam LAMAR [Susc]Ordered By: Erin Jonas on 05-05-2024 Escherichia coli Escherichia coli Fi [facility] GS Occasional Gram Nega tive Rods [facility] BLOOD BANKOrdered By: Cuauhtemoc Moe on 05-05-2024 ABO/Rh Interp Positive Invalid Interpretation Code [facility] BB Subsection ABSC Gel Interp Negative (05/05/24 3:55 AM) Normal [facility] BB Subsection BMPon 05-05-2024 Anion gap [Moles/Vol] 11 mmol/L Normal 6-16 [facility] Comment on above: Performed By: #### 2 [id number] #### [facility] [address] [place] [address] Calcium [Mass/Vol] 8.9 mg/dL Normal 8.9-11.1 [facility] Comment on above: Performed By: #### 2 705797 #### [facility] [address] [place] [address] Chloride [Moles/Vol] 101 mmol/L Normal 101-111 [facility] Comment on above: Performed By: #### 2 865449 #### [facility] [address] [place] [address] CO2 [Moles/Vol] 27 mmol/L Normal 21-31 [facility] Comment on above: Performed By: #### 2 691654 #### [facility] [address] [place] [address] Creatinine [Mass/Vol] 0.8 mg/dL Normal 0.5-1.3 [facility] Comment on above: Performed By: #### 2 810024 #### [facility] [address] [place] [address] Glucose [Mass/Vol] 129 mg/dL Normal 55-199 [facility] Comment on above: Performed By: #### 2 864432 #### [facility] [address] [place] [address] Potassium [Moles/Vol] 4.2 mmol/L Normal 3.5-5.3 [facility] Comment on above: Performed By: #### 2 [id number] #### [facility] [address] [place] [address] Sodium [Moles/Vol] 135 mmol/L Normal 135-145 [facility] Comment on above: Performed By: #### 2 951231 #### [facility] [address] [place] [address] Urea nitrogen [Mass/Vol] 19 mg/dL Normal 5-21 [facility] Comment on above: Performed By: #### 2 932960 #### [facility] [address] [place] [address] Urea nitrogen/Creatinine [Mass ratio] 24 No Units High 10-20 [facility] Comment on above: Performed By: #### 2 [id number] #### [facility] [address] [place] [address] Blood Bank ID#on 05-05-2024 BBID# [id number] Invalid Interpretation Code [facility] Comment on above: Performed By: #### 1 [id number] #### [facility] [address] [place] [address] CBC w/ Auto Diffon 5 Basophils/100 WBC (Bld) 0.3 % Normal 0.0-2.0 [facility] Comment on above: Performed By: #### 2 845127 #### [facility] [address] [place] [address] Basophils/Leukocytes Auto (Bld) [Pure # fraction] 0.1 E9/L Normal 0.0-0.2 [facility] Comment on above: Performed By: #### 2 091933 #### [facility] [address] [place] [address] Eosinophils (Bld) [#/Vol] 0.0 E9/L Normal 0.0-0.5 [facility] Comment on above: Performed By: #### 2 590073 #### [facility] [address] [place] [address] Eosinophils/100 WBC (Bld) 0.0 % Normal 0.0-8.0 [facility] Comment on above: Performed By: #### 2 737451 #### [facility] [address] [place] [address] Erythrocyte distribution width (RBC) [Ratio] 20.0 % High 10.9-14.2 [facility] Comment on above: Performed By: #### 2 053706 #### [facility] [address] [place] [address] Hematocrit (Bld) [Volume fraction] 28.1 % Low 37.7-49.0 [facility] Comment on above: Performed By: #### 2 096380 #### [facility] [address] [place] [address] Hemoglobin (Bld) [Mass/Vol] 8.9 g/dL Low 13.5-17.5 [facility] Comment on above: Performed By: #### 2 308146 #### [facility] [address] [place] [address] Lymphocytes (Bld) [#/Vol] 0.3 E9/L Low 1.0-4.0 [facility] Comment on above: Performed By: #### 2 573724 #### [facility] [address] [place] [address] Lymphocytes/100 WBC (Bld) 1.4 % Low 14.0-50.0 [facility] Comment on above: Performed By: #### 2 971109 #### [facility] [address] [place] [address] MCH (RBC) [Entitic mass] 23.1 pg Low 27.0-34.0 [facility] Comment on above: Performed By: #### 2 [id number] #### [facility] [address] [place] [address] MCHC (RBC) [Mass/Vol] 31.8 g/dL Normal 31.4-36.0 [facility] Comment on above: Performed By: #### 2 919237 #### [facility] [address] [place] [address] MCV (RBC) [Entitic vol] 72.7 fL Low 80.0-100.0 [facility] Comment on above: Performed By: #### 2 640216 #### [facility] [address] [place] [address] Monocytes (Bld) [#/Vol] 1.6 E9/L High 0.2-1.0 [facility] Comment on above: Performed By: #### 2 417474 #### [facility] [address] [place] [address] Neutrophils (Bld) [#/Vol] 22.6 E9/L High 2.0-7.5 [facility] Comment on above: Performed By: #### 2 383651 #### [facility] [address] [place] [address] Neutrophils/100 WBC (Bld) 91.8 % High 36.0-75.0 [facility] Comment on above: Performed By: #### 2 600043 #### [facility] [address] [place] [address] Platelet mean volume (Bld) [Entitic vol] 9.3 fL Normal 6.4-10.8 [facility] Comment on above: Performed By: #### 2 572431 #### [facility] [address] [place] [address] Platelets (Bld) [#/Vol] 125.0 E9/L Low 150.0-500. 0 [facility] Comment on above: Performed By: #### 2 695362 #### [facility] [address] [place] [address] RBC (Bld) [#/Vol] 3.9 E12/L Low 4.3-5.9 [facility] Comment on above: Performed By: #### 2 773492 #### [facility] [address] [place] [address] WBC corrected for nucl RBC Auto (Bld) [#/Vol] 24.7 E9/L High 4.0-11.0 [facility] Comment on above: Performed By: #### 2 184702 #### [facility] [address] [place] [address] Acanthocytes LM Ql (Bld) PRESENT Invalid Interpretation Code [facility] Comment on above: Performed By: #### 2 623396 #### [facility] [address] [place] [address] Basophils/100 WBC (Bld) 0.2 % Normal 0.0-2.0 [facility] Comment on above: Performed By: #### 2 485317 #### [facility] [address] [place] [address] Basophils/Leukocytes Auto (Bld) [Pure # fraction] 0.0 E9/L Normal 0.0-0.2 [facility] Comment on above: Performed By: #### 2 [id number] #### [facility] [address] [place] [address] Elliptocytes LM Ql (Bld) PRESENT Invalid Interpretation Code [facility] Comment on above: Performed By: #### 2 149440 #### [facility] [address] [place] [address] Eosinophils (Bld) [#/Vol] 0.0 E9/L Normal 0.0-0.5 [facility] Comment on above: Performed By: #### 2 353649 #### [facility] [address] [place] [address] Eosinophils/100 WBC (Bld) 0.0 % Normal 0.0-8.0 [facility] Comment on above: Performed By: #### 2 903122 #### [facility] [address] [place] [address] Erythrocyte distribution width (RBC) [Ratio] 19.9 % High 10.9-14.2 [facility] Comment on above: Performed By: #### 2 945996 #### [facility] [address] [place] [address] Hematocrit (Bld) [Volume fraction] 30.2 % Low 37.7-49.0 [facility] Comment on above: Performed By: #### 2 526084 #### [facility] [address] [place] [address] Hemoglobin (Bld) [Mass/Vol] 9.6 g/dL Low 13.5-17.5 [facility] Comment on above: Performed By: #### 2 079924 #### [facility] [address] [place] [address] Hypochromia Auto Ql (Bld) PRESENT Invalid Interpretation Code [facility] Comment on above: Performed By: #### 2 [id number] #### [facility] [address] [place] [address] Lymphocytes (Bld) [#/Vol] 0.9 E9/L Low 1.0-4.0 [facility] Comment on above: Performed By: #### 2 607238 #### [facility] [address] [place] [address] Lymphocytes/100 WBC (Bld) 4.4 % Low 14.0-50.0 [facility] Comment on above: Performed By: #### 2 632375 #### [facility] [address] [place] [address] MCH (RBC) [Entitic mass] 23.2 pg Low 27.0-34.0 [facility] Comment on above: Performed By: #### 2 [id number] #### [facility] [address] [place] [address] MCHC (RBC) [Mass/Vol] 31.8 g/dL Normal 31.4-36.0 [facility] Comment on above: Performed By: #### 2 [id number] #### [facility] [address] [place] [address] MCV (RBC) [Entitic vol] 72.9 fL Low 80.0-100.0 [facility] Comment on above: Performed By: #### 2 336348 #### [facility] [address] [place] [address] Microcytes Ql (Bld) PRESENT Invalid Interpretation Code [facility] Comment on above: Performed By: #### 2 [id number] #### [facility] [address] [place] [address] Monocytes (Bld) [#/Vol] 2.6 E9/L High 0.2-1.0 [facility] Comment on above: Result Comment: Revi ew slide for monocytosis Performed By: #### 2 178995 #### [facility] [address] [place] [address] Neutrophils (Bld) [#/Vol] 17.2 E9/L High 2.0-7.5 [facility] Comment on above: Performed By: #### 2 [id number] #### [facility] [address] [place] [address] Neutrophils/100 WBC (Bld) 82.7 % High 36.0-75.0 [facility] Comment on above: Performed By: #### 2 388277 #### [facility] [address] [place] [address] Platelet mean volume (Bld) [Entitic vol] 9.6 fL Normal 6.4-10.8 [facility] Comment on above: Performed By: #### 2 [id number] #### [facility] [address] [place] [address] Platelets (Bld) [#/Vol] 127.0 E9/L Low 150.0-500. 0 [facility] Comment on above: Performed By: #### 2 187837 #### [facility] [address] [place] [address] RBC (Bld) [#/Vol] 4.1 E12/L Low 4.3-5.9 [facility] Comment on above: Performed By: #### 2 889853 #### [facility] [address] [place] [address] RBC size Nom (Bld) SEE MORPHOLOGY Invalid Interpretation Code [facility] Comment on above: Performed By: #### 2 450594 #### [facility] [address] [place] [address] WBC corrected for nucl RBC Auto (Bld) [#/Vol] 20.8 E9/L High 4.0-11.0 [facility] Comment on above: Performed By: #### 2 711090 #### [facility] [address] [place] [address] CHEMISTRYOrdered By: SYSTEM SYSTEM on 05-05-2024 Albumin [Mass/Vol] 3.6 g/dL Normal 3.3 - 5.0 gm/dL Remisol Chem Albumin/Globulin [Mass ratio] 1.3 {ratio} Normal 1.1 - 2.2 [facility] ALP [Catalytic activity/Vol] 64 [iU]/d Normal 21 - 98 Int._Unit/ L Remisol Chem ALT No additional P-5'-P [Catalytic activity/Vol] 9 [iU]/d Normal 6 - 46 Int._Unit/ L [facility] Chem Anion gap [Moles/Vol] 11 mmol/L Normal 6 - 16 mEq/L [facility] Chem AST [Catalytic activity/Vol] 13 [iU]/d Normal 5 - 43 Int._Unit/ L Rem[facility] Chem Bilirubin [Mass/Vol] 1.6 mg/dL High [...] Chem eGFR 89 mL/min/1.73 m2 Normal >=59mL/min /1.73 m2 Remisol Chem Globulin (S) [Mass/Vol] 2.8 [...] 31.3 s Normal 25.1 - 36.5 second(s) [facility] Auto Coag Comment on above: Interpretive Data: [...] the same coagulation reagent and instrumentation as [facility]. Currently there are no coagulation studies available worldwide for children to 14 days, and no normal ranges. Heparin therapeutic range (represented by Anti-Factor Xa activity of 0.2 - 0.4 U/mL) corresponds to PTT of 56.6 - 109.0 sec. INR Coag (PPP) [Relative time] 1.40 {INR} Invalid Interpretation Code [facility] Co[facility] Comment on above: Interpretive Data: I NR results are specifically intended to assess patients stabilized on long-term Anticoagulation therapy suggested INR s Less Intensive Anticoagulation 2.0 3.0 Conventional Range 3.0 4.5 PT Coag (PPP) [Time] 15.7 s High 9.4 - 1 2.5 second(s) [facility] Auto Coag Comment on above: Interpretive Data: [...] the same coagulation reagent and instrumentation as [facility]. Currently there are no coagulation studies available worldwide for children to 14 days, and no normal ranges. Extra Ja 05-05-2024 WB Tube Collected Yes Invalid Interpretation Code [facility] Comment on above: Performed By: #### 1 [id number] #### [facility] [address] [place] [address] HEMATOLOGYOrdered By: SYSTEM SYSTEM on 05-05-2024 Basophils/100 [...] 05-05-2024 Albumin [Mass/Vol] 3.6 g/dL Normal 3.3-5.0 [facility] Comment on above: Performed By: #### 2 655114 #### [facility] [address] [place] [address] Albumin/Globulin (S) [Mass conc ratio] 1.3 Normal 1.1-2.2 [facility] Comment on above: Performed By: #### 2 [id number] #### [facility] [address] [place] [address] ALP [Catalytic activity/Vol] 64 Int._Unit/L Normal 21-98 [facility] Comment on above: Performed By: #### 2 [id number] #### [facility] [address] [place] [address] ALT No additional P-5'-P [Catalytic activity/Vol] 9 Int._Unit/L Normal 6-46 [facility] Comment on above: Performed By: #### 2 [id number] #### [facility] [address] [place] [address] AST [Catalytic activity/Vol] 13 Int._Unit/L Normal 5-43 [facility] Comment on above: Performed By: #### 2 065525 #### [facility] [address] [place] [address] Bilirubin [Mass/Vol] 1.6 mg/dL High 0.0-1.1 [facility] Comment on above: Performed By: #### 2 628808 #### [facility] [address] [place] [address] Bilirubin.direct [Mass/Vol] 0.3 mg/dL Normal 0.0-0.4 [facility] Comment on above: Performed By: #### 2 644116 #### [facility] [address] [place] [address] Bilirubin.indirect [Mass or moles/Vol] 1.3 mg/dL High 0.1-0.9 [facility] Comment on above: Performed By: #### 2 [id number] #### [facility] [address] [place] [address] Globulin (S) [Mass/Vol] 2.8 g/dL Normal 1.4-4.0 [facility] Comment on above: Performed By: #### 2 687425 #### [facility] [address] [place] [address] Protein [Mass/Vol] 6.4 g/dL Normal 6.0-7.8 [facility] Comment on above: Performed By: #### 2 941456 #### [facility] [address] [place] [address] Interdisciplinary Note - Toi e Manageron 05-05-2024 Interdisciplinary Note - Dietary Aide Teacher Interdisciplinary Note - Dietary Aide Teacher CRM to room and patient is down in OR Patient is still in OR unable to see for DC planning Normal [facility] Comment on above: Result Comment: Elec tronically Signed By: Samara Mcmahon\.shiva\Date and Time Signed: 05/05/24 14:23 EST Main OR Intraoperative Recor don 05-05-2024 Main OR Intraoperative Record Main OR Intraoperative Record IntraOp Document Type FT Summary Primary Physician: Rosi Hinton MD Finalized Date/Time: 05/05/24 13:41:51 Pt. Name: VALENCIA BROOKS/Sex: 1940 Male Med Rec #: [id number] Physician: Rosi Hinton MD Financial #: [id number] Pt. Type: O Room/Bed: [place] [address] Admit/Disch: 05/04/24 20:49:17 - Institution: Case Times FT Entry 1 Patient Times In Room 05/05/24 11:32:00 Out Room 05/05/24 13:27:00 Procedure Times Start 05/05/24 11:58:00 Stop 05/05/24 13:19:00 Anesthesia Times Start 05/05/24 11:32:00 Stop 05/05/24 13:27:00 Last Modified By: Mauricio ALVARENGA, Steph Astorga 05/05/24 13:27:15 Case Attendance FT Entry 1 Entry 2 Entry 3 Case Attendee Julio Cesar HIGGINBOTHAM, Alvaro Hinton MD, Rosi Martínez RN, Steph Astorga Role Performed CLIENT HR MANAGER Surgeon - Primary Beef Grader - Primary Time In 05/05/24 11:32:00 05/05/24 [...] Performed Scrub - Primary Staff - Other PA/FUEL CELL DESIGNER Time In 05/05/24 11:32:00 05/05/24 11:32:00 05/05/24 [...] PreOp Antibiotic Yes Time Out Bella LEONARD, Rosi Chino, Given Participants Alvaro Harrell CRNA, Ferrer RN, Steph Astorga, Julissa Barrios LPN Time Out Complete 05/05/24 11:57:00 Outcomes [...] TAP BLOCK Primary Procedure Yes Primary Surgeon Rosi Hinton MD Start 05/05/24 11:58:00 Stop 05/05/24 13:19:00 [...] and tissue Entry 1 Skin Integrity Intact, [place], Warm, & Skin Abnormality No Dry Outcomes Met? Yes Last Modified By: Steph Martínez RN 05/05/24 12:22:17 Post-Care Text: The patient is free from signs and symptoms of injury caused by extraneous objects Patient Positioning FT Pre-Care Text: Identifies physic (more content not included)... Normal [facility] Main OR PACU I Recordon 04-26 Main OR PACU I Record Main OR PACU I Rec ord PACU Phase I Document Type FT Summary Primary Physician: Rosi Hinton MD Finalized Date/Time: 05/05/24 14:47:42 Pt. Name: VALENCIA BROOKS/Sex: 1940 Male Med Rec #: [id number] Physician: Rosi Hinton MD Financial #: [id number] Pt. Type: O Room/Bed: [place] [address] Admit/Disch: 05/04/24 20:49:17 - Institution: Case Times [...] By: Cha Garcia RN 05/05/24 14:47 Normal [facility] Main OR Preoperative Recordo n 01-10-2025 Main OR Preoperative Record Main OR Preoperative Record PreOp Document Type FT Summary Primary Physician: Rosi Hinton MD Finalized Date/Time: 05/05/24 12:27:49 Pt. Name: VALENCIA BROOKS /Sex: 1940 Male Med Rec #: [id number] Physician: Rosi Hinton MD Financial #: [id number] Pt. Type: O Room/Bed: [facility] Admit/Disch: 05/04/24 20:49:17 - Institution: Case [...] By: Steph Martínez RN 05/05/24 12:27 Normal [facility] Operative Reporton Operative Report Operative Report [facility] Acute Care Surgery Operative Report Date of Service: 05/05/2024 Preop Diagnosis: Acute cholecystitis Postop Diagnosis: Acute cholecystitis Procedure: Laparoscopic subtotal cholecystectomy Surgeon:Rosi Hinton MD Felt Cementer: Kristy Piper PA-C Anesthesia: General endotracheal EBL: [...] admitted on 05/05/2024 as a transfer from [facility] with acute cholecystitis. He was started [...] for all parts of the procedure. Normal [facility] Comment on above: Result Comment: Elec tronically Signed By: Bella LEONARD, Rosi Juarez\Date and Time Signed: 05/05/24 14:10 EST PT & PTTon 05-05-2024 aPTT Coag (PPP) [Time] 31.3 second(s) Normal 25.1-36.5 [facility] Comment on above: Result Comment: Para meter [...] the same coagulation reagent and instrumentation as [facility]. Currently there are no coagulation studies available worldwide for children to 14 days, and no normal ranges. Heparin therapeutic range (represented by Anti-Factor Xa activity of 0.2 - 0.4 U/mL) corresponds to PTT of 56.6 - 109.0 sec. Performed By: #### 1 [id number] #### [facility] [address] [place] [address] INR Coag (PPP) [Relative time] 1.40 {INR} Invalid Interpretation Code [facility] Comment on above: Result Comment: INR results are specifically intended to assess patients stabilized on long-term Anticoagulation therapy suggested INR???s ???Less Intensive Anticoagulation??? 2.0 ??? 3.0 Conventional Range 3.0 ??? 4.5 Performed By: #### 1 [id number] #### [facility] [address] [place] [address] PT Coag (PPP) [Time] 15.7 second(s) High 9.4-12.5 [facility] Comment on above: Result Comment: 15 d [...] the same coagulation reagent and instrumentation as [facility]. Currently there are no coagulation studies available worldwide for children to 14 days, and no normal ranges. Performed By: #### 1 [id number] #### [facility] [address] [place] [address] XR Chest 2 Viewson 5 XR Chest 2 Views Exam Date/Time: 05/05/2024 07:45 EST Reason for Exam: Pre op;Other (please specify) Report IMPRESSION: No acute radiographic abnormality. EXAMINATION: XR Chest 2 Views Clinical History: Presurgical assessment. Comparison: None RESULT: No distinct focal consolidation. No large pleural effusion. No pneumothorax. Mildly coarsened lung markings. Normal cardiomediastinal silhouette. No acute osseous findings. Ordering Provider: Rosi Hinton FINAL REPORT Dictated: 05/05/2024 11:04 am Bishop Wu MD Signed (Electronic Signature): 05/05/2024 11:04 am Signed by: Bishop Wu MD Transcribed by: LANA Technologist: CARLY Technical Comments Radiation Dose: Ka,r in mGy = . DAP = . Normal [facility] eGFRon 05-05-2024 eGFR 89 mL/min/1.73 m2 Normal >=59 [facility] Comment on above: Performed By: #### 1 [id number] #### [facility] [address] [place] [address] No Panel Informationon 03-28 [facility] No Panel Informationon 03-15 [facility] Skin excisionon 03-15-2024 Lesion length (cm): 0.7 [...] 6.0 ml Estimated blood loss: 1.0 ml [facility] Skin repairon 03-15-2024 Complexity: Intermed iate Final length (cm): 4 Reason for type [...] uncontrollable bleeding, or complications. Dressing type: bandage [facility] No Panel Informationon 03-01 Lesion length (cm): [...] 9 ml Estimated blood loss: 0.1 ml [facility] Complexity: Intermed iate Final length (cm): 5.9 Reason for type [...] uncontrollable bleeding, or complications. Dressing type: bandage [facility] [place] No Panel InformationOrdered By: Diamond Rios on 03-01-2024 [facility] [place] Work Phone: No Panel Informationon 01-02 Type of biopsy: de paz ential Informed consent: discussed and consent obtained Informed [...] yes Amount of lidocaine used: 1.0 cc [facility] [place] [facility] [place] Type of biopsy: de paz ential Informed consent: discussed and consent obtained Informed [...] yes Amount of lidocaine used: 1.0 cc [facility] MRI KNEE RT W CONon 05-12-19 20 MRI KNEE RT W CON Patient: JESSIKA BROOKS Exam Date: 05/12/2019 : 1940 Gender:M Ordering : DR KESHA MARIN PA Admission #: [id number] Family : Order #: [id number] CLICK HERE TO VIEW EXAM RADIOLOGY REPORT PROCEDURE: MRI KNEE RIGHT WITH CONTRAST COMPARISON: XR KNEE DOUG 4V OR >, 04/04/2019. MRI KNEE RT [...] M.D. on 05/12/2019 at 15:45 Normal [facility] CREATININEon 05-09-2019 Creatinine [Mass/Vol] 1.00 mg/dL Normal 0.66-1.25 [facility] Comment on above: Performed By: #### C STEVIE #### [facility] [address], [place] [address] Elda Rebolledo Creatinine [Mass/Vol] mg/dL Normal >=60 [facility] Comment on above: Performed By: #### C STEVIE #### [facility] [address] [place], [place] [address] Elda Rebolledo MRI KNEE RT WO CONon 019 MRI KNEE RT WO CON Patient: JESSIKA BROOKS Exam Date: 04/11/2019 : 1940 Gender:M Ordering : DR KESHA MARIN PA Admission #: [id number] Family : Order #: [id number] CLICK HERE TO VIEW EXAM RADIOLOGY REPORT PROCEDURE: MRI KNEE RIGHT WITHOUT CONTRAST COMPARISON: XR KNEE DOUG 4V OR >, 04/04/2019. INDICATIONS: Abnormal findings [...] Dueñas M.D. on 04/11/2019 at 14:44 Normal [facility] XR FOREIGN BODY EYEon 2018 XR FOREIGN BODY EYE Patient: JESSIKA BROOKS. Exam Date: 04/11/2019 : 1940 Gender:M Ordering : DR KESHA JACOBSEN Admission #: [id number] Family : Order #: [id number] CLICK HERE TO VIEW EXAM RADIOLOGY REPORT [...] Donahue M.D. on 04/11/2019 at 13:21 Normal [facility] XR KNEE DOUG 4V OR >on 2018 XR KNEE DOUG 4V OR > Patient: JESSIKA BROOKS. Exam Date: 04/04/2019 : 1940 Gender:M Ordering : DR KESHA JACOBSEN Admission #: [id number] Family : DR BISHOP TURCIOS M.D. Order #: [id number] CLICK HERE TO VIEW EXAM RADIOLOGY REPORT [...] Dueñas M.D. on 04/05/2019 at 07:00 Normal [facility] XR C-SPINE MIN 4 VIEWSon XR C-SPINE MIN 4 VIEWS [address] [place] [address] Patient: VALENCIA BROOKS Exam Date: 07/07/2018 : 1940 Gender:M Ordering : DR BISHOP TURCIOS M.D. Admission #: [id number] Family : Order #: [id number] CLICK HERE TO VIEW EXAM RADIOLOGY REPORT [...] Dueñas M.D. on 07/07/2018 at 16:26 Normal [facility] Vital Signs Date Time Vital Sign Value Performing Clinician Facility 10-03-2024 [id number] Body height 172.7 cm Kesha JACOBSEN Work Phone: [facility] 10-03-2024 14:31040 Body mass index (BMI) [Ratio] 26 kg/m2 Kesha JACOBSEN Work Phone: [facility] 10-03-2024 [id number] Body weight 77.56 kg Kesha JACOBSEN Work Phone: [facility] 10-03-2024 14:31-0400 Diastolic blood pressure 58 mm[Hg] Kesha Hemmer PA Work Phone: [facility] 10-03-2024 14:31-0400 Heart rate 68 /min Kesha Hemmer PA Work Phone: [facility] 10-03-2024 14:31-0400 Respiratory rate 16 /min Kesha Hemmer PA Work Phone: [facility] 10-03-2024 14:31-0400 SaO2% (BldA) [Mass fraction] 97 % Kesha Hemmer PA Work Phone: [facility] 10-03-2024 14:31-0400 Systolic blood pressure 102 mm[Hg] Kesha Hemmer PA Work Phone: [facility] 09-27-2024 13:10-0400 Body temperature 96.91 [degF] Rajendra Reyna MD Work Phone: [facility] 09-27-2024 13:10-0400 Diastolic blood pressure 56 mm[Hg] [facility] 09-27-2024 13:10-0400 Heart rate 65 /min Rajendra Reyna MD Work Phone: [facility] 09-27-2024 13:10-0400 Respiratory rate 20 /min Rajendra Reyna MD Work Phone: [facility] 09-27-2024 13:10-0400 SaO2% (BldA) [Mass fraction] 94 % Rajendra Reyna MD [facility] 09-27-2024 13:10-0400 Systolic blood pressure 111 mm[Hg] Rajendra Reyna MD Work Phone: [facility] 09-21-2024 13:03-0400 Body height 172.7 cm Bry Zafar DPM Work Phone: [facility] 09-21-2024 13:03-0400 Body mass index (BMI) [Ratio] 26.46 kg/m2 Bry Zafar DPM Work Phone: [facility] 09-21-2024 13:03-0400 Body weight 78.93 kg Bry Zafar DPM Work Phone: [facility] 09-21-2024 13:03-0400 Respiratory rate 16 /min Bry Zafar DPM Work Phone: [facility] 09-07-2024 15:22-0400 Body height 172.7 cm Kesha Hemmer PA Work Phone: [facility] 09-07-2024 15:22-0400 Body mass index (BMI) [Ratio] 26.58 kg/m2 Kesha Hemmer PA Work Phone: [facility] 09-07-2024 15:22-0400 Body temperature 99 [degF] Kesha Hemmer PA Work Phone: [facility] 09-07-2024 15:22-0400 Body weight 79.29 kg Kesha Hemmer PA Work Phone: [facility] 09-07-2024 15:22-0400 Diastolic blood pressure 72 mm[Hg] Kesha Hemmer PA Work Phone: [facility] 09-07-2024 15:22-0400 Heart rate 72 /min Kesha Hemmer PA Work Phone: [facility] 09-07-2024 15:22-0400 Respiratory rate 16 /min Kesha Hemmer PA Work Phone: [facility] 09-07-2024 15:22-0400 SaO2% (BldA) [Mass fraction] 96 % Kesha Hemmer PA Work Phone: [facility] 09-07-2024 15:22-0400 Systolic blood pressure 124 mm[Hg] Kesha Hemmer PA Work Phone: [facility] 09-07-2024 14:53-0400 Body height 172.7 cm Bry Zafar DPM Work Phone: [facility] 09-07-2024 14:53-0400 Body mass index (BMI) [Ratio] 26.3 kg/m2 Bry Serge DPM Work Phone: [facility] 09-07-2024 14:53-0400 Body weight 78.47 kg Bry Zafar DPM Work Phone: [facility] 09-07-2024 14:53-0400 Respiratory rate 18 /min Bry Serge DPM Work Phone: [facility] 08-17-2024 14:17-0400 Body height 172.7 cm Kesha Hemmer PA Work Phone: [facility] 08-17-2024 14:17-0400 Body mass index (BMI) [Ratio] 26.37 kg/m2 Kesha Hemmer PA Work Phone: [facility] 08-17-2024 14:17-0400 Body weight 78.65 kg Kesha Hemmer PA Work Phone: [facility] 08-17-2024 14:17-0400 Diastolic blood pressure 62 mm[Hg] Kesha Hemmer PA Work Phone: [facility] 08-17-2024 14:17-0400 Heart rate 75 /min Kesha Hemmer PA Work Phone: [facility] 08-17-2024 14:17-0400 Respiratory rate 16 /min Kesha Hemmer PA Work Phone: [facility] 08-17-2024 14:17-0400 SaO2% (BldA) [Mass fraction] 96 % Kesha Hemmer PA Work Phone: [facility] 08-17-2024 14:17-0400 Systolic blood pressure 102 mm[Hg] Kesha Hemmer PA Work Phone: [facility] 08-17-2024 13:58-0400 Body height 175.3 cm Bry Brown DPM Work Phone: [facility] 08-17-2024 13:58-0400 Body mass index (BMI) [Ratio] 25.25 kg/m2 Bry Zafar DPM Work Phone: [facility] 08-17-2024 13:58-0400 Body weight 77.56 kg Bry Zafar DPM Work Phone: [facility] 08-17-2024 13:58-0400 Respiratory rate 18 /min Bry Zafar DPM Work Phone: [facility] 08-03-2024 14:13-0400 Body height 175.3 cm Bry Zafar DPM Work Phone: [facility] 08-03-2024 14:13-0400 Body mass index (BMI) [Ratio] 25.25 kg/m2 Bry Zafar DPM Work Phone: [facility] 08-03-2024 14:13-0400 Body weight 77.56 kg Bry Zafar DPM Work Phone: [facility] 08-03-2024 14:13-0400 Respiratory rate 16 /min Bry Zafar DPM Work Phone: [facility] 08-02-2024 10:41-0400 Body temperature 97.52 [degF] Shay Olga [facility] 08-02-2024 10:41-0400 Diastolic blood pressure 62 mm[Hg] Shay Loga [facility] 08-02-2024 10:41-0400 Heart rate 72 /min Shay Olga [facility] 08-02-2024 10:41-0400 SaO2% (BldA) [Mass fraction] 98 % Shay Olga [facility] 08-02-2024 10:41-0400 Systolic blood pressure 127 mm[Hg] Shay Olga [facility] 06-21-2024 10:33-0500 Diastolic blood pressure 60 mm[Hg] Chris Agustin [facility] 06-21-2024 10:33-0500 Heart rate 76 /min Chris Agustin [facility] 06-21-2024 10:33-0500 Systolic blood pressure 127 mm[Hg] Chris Agustin [facility] 06-20-2024 11:43-0500 Body temperature 98.06 [degF] Mhd Al-Marrawi [facility] 06-20-2024 11:43-0500 Diastolic blood pressure 67 mm[Hg] Mhd Al-Marrawi [facility] 06-20-2024 11:43-0500 Heart rate 77 /min Mhd Al-Marrawi [facility] 06-20-2024 11:43-0500 Mean blood pressure 85 mm[Hg] Mhd Al-Marrawi [facility] 06-20-2024 11:43-0500 Respiratory rate 16 /min Mhd Al-Marrawi [facility] 06-20-2024 11:43-0500 SaO2% (BldA) [Mass fraction] 96 % Mhd Al-Marrawi [facility] 06-20-2024 11:43-0500 Systolic blood pressure 120 mm[Hg] Mhd Al-Marrawi [facility] 06-14-2024 11:18-0500 Body height 172.7 cm Bishop Turcios MD Work Phone: [facility] 06-14-2024 11:18-0500 Body mass index (BMI) [Ratio] 25.7 kg/m2 Bishop Turcios MD Work Phone: [facility] 06-14-2024 11:18-0500 Body temperature 98.71 [degF] Bishop Turcios MD Work Phone: [facility] 06-14-2024 11:18-0500 Body weight 76.66 kg Bishop Turcios MD Work Phone: [facility] 06-14-2024 11:18-0500 Diastolic blood pressure 66 mm[Hg] Bishop Turcios MD Work Phone: [facility] 06-14-2024 11:18-0500 Heart rate 64 /min Bishop Turcios MD Work Phone: [facility] 06-14-2024 11:18-0500 SaO2% (BldA) [Mass fraction] 97 % Bishop Turcios MD Work Phone: [facility] 06-14-2024 11:18-0500 Systolic blood pressure 124 mm[Hg] Bishop Turcios MD Work Phone: [facility] 06-07-2024 10:27-0500 Body temperature 97.52 [degF] Clark Bass [facility] 06-07-2024 10:27-0500 Diastolic blood pressure 71 mm[Hg] Clark Bass [facility] 06-07-2024 10:27-0500 Heart rate 80 /min Clark Bass [facility] 06-07-2024 10:27-0500 Systolic blood pressure 138 mm[Hg] Clark Bass [facility] 05-31-2024 10:05-0500 Body temperature 97.7 [degF] Rosi Hinton [facility] 05-31-2024 10:05-0500 Diastolic blood pressure 64 mm[Hg] Rosi Hinton [facility] 05-31-2024 10:05-0500 Heart rate 71 /min Rosi Hinton [facility] 05-31-2024 10:05-0500 Systolic blood pressure 116 mm[Hg] Rosi Hinton [facility] 05-23-2024 14:11-0500 Body temperature 98.1 [degF] Ajay Foy MD Work Phone: [facility] 05-23-2024 14:11-0500 Diastolic blood pressure 55 mm[Hg] [facility] 05-23-2024 14:11-0500 Heart rate 80 /min Aj[facility] Foy MD [facility] 05-23-2024 14:11-0500 Respiratory rate 16 /min Aj[facility] Foy [facility] 05-23-2024 14:11-0500 SaO2% (BldA) [Mass fraction] 98 % Ajay Foy MD [facility] 05-23-2024 14:11-0500 Systolic blood pressure 115 mm[Hg] Ajay Foy MD Work Phone: [facility] 05-22-2024 11:30-0500 Diastolic blood pressure 57 mm[Hg] Mh Procedures [facility] 05-22-2024 11:30-0500 Heart rate 77 /min [facility] 05-22-2024 11:30-0500 Respiratory rate 14 /min [facility] 05-22-2024 11:30-0500 SaO2% (BldA) [Mass fraction] 95 % M[facility] Procedures [facility] 05-22-2024 11:30-0500 Systolic blood pressure 115 mm[Hg] Mh Procedures [facility] 05-21-2024 20:53-0500 Body height 175.3 cm Ajay Foy MD [facility] 05-21-2024 20:53-0500 Body mass index (BMI) [Ratio] 25.55 kg/m2 Ajay Foy MD [facility] 05-21-2024 20:53-0500 Body weight 78.47 kg Ajay Foy MD Work Phone: [facility] 05-18-2024 13:04-0500 Body height 172.7 cm Kesha Hemmer PA Work Phone: [facility] 05-18-2024 13:04-0500 Body mass index (BMI) [Ratio] 26.37 kg/m2 Kesha Hemmer PA Work Phone: [facility] 05-18-2024 13:04-0500 Body weight 78.65 kg Kesha Hemmer PA Work Phone: [facility] 05-18-2024 13:04-0500 Diastolic blood pressure 62 mm[Hg] Kesha Hemmer PA Work Phone: [facility] 05-18-2024 13:04-0500 Heart rate 84 /min Kesha Hemmer PA Work Phone: [facility] 05-18-2024 13:04-0500 Respiratory rate 16 /min Kesha Hemmer PA Work Phone: [facility] 05-18-2024 13:04-0500 SaO2% (BldA) [Mass fraction] 95 % Kesha Hemmer PA Work Phone: [facility] 05-18-2024 13:04-0500 Systolic blood pressure 124 mm[Hg] Kesha Hemmer PA Work Phone: [facility] 05-17-2024 10:02-0500 Diastolic blood pressure 64 mm[Hg] Clark Bass [facility] 05-17-2024 10:02-0500 Heart rate 91 /min Clark Bass [facility] 05-17-2024 10:02-0500 SaO2% (BldA) [Mass fraction] 96 % Clark Bass [facility] 05-17-2024 10:02-0500 Systolic blood pressure 109 mm[Hg] Clark Bass [facility] 05-07-2024 11:55-0500 Hourly Rounding Rosi Hinton [facility] 05-07-2024 11:55-0500 Promise to Return Rosi Hinton [facility] 05-07-2024 11:19-0500 Heart rate 92 /min Rosi Hinton [facility] 05-07-2024 11:19-0500 SaO2% (BldA) [Mass fraction] 96 % Rosi Hinton [facility] 05-07-2024 11:17-0500 Respiratory rate 18 /min Rosi Hinton [facility] 05-07-2024 11:17-0500 Body temperature 98.24 [degF] Rosi Hinton [facility] 05-07-2024 11:17-0500 Blood Pressure Location Rosi Hinton [facility] 05-07-2024 11:17-0500 BP/Pulse Patient Position Rosi Hinton [facility] 05-07-2024 11:17-0500 Diastolic blood pressure 65 mm[Hg] Rosi Hinton [facility] 05-07-2024 11:17-0500 Mean blood pressure 81 mm[Hg] Rosi Hinton [facility] 05-07-2024 11:17-0500 Systolic blood pressure 113 mm[Hg] Rosi Hinton [facility] 05-07-2024 10:55-0500 Hourly Rounding Rosi Hinton [facility] 05-07-2024 10:55-0500 Promise to Return Rosi Hinton [facility] 05-07-2024 09:36-0500 Hourly Rounding Rosi Hinton [facility] 05-07-2024 09:36-0500 Promise to Return Rosi Hinton [facility] 05-07-2024 08:10-0500 Heart rate 95 /min Rosi Hinton [facility] 05-07-2024 08:10-0500 SaO2% (BldA) [Mass fraction] 92 % Rosi Hintno [facility] 05-07-2024 08:09-0500 Respiratory rate 16 /min Rosi Hinton [facility] 05-07-2024 08:09-0500 Blood Pressure Location Rosi Hinton [facility] 05-07-2024 08:09-0500 BP/Pulse Patient Position Rosi Hinton [facility] 05-07-2024 08:09-0500 Diastolic blood pressure 64 mm[Hg] Rosi Hinton [facility] 05-07-2024 08:09-0500 Mean blood pressure 84 mm[Hg] Rosi Hinton [facility] 05-07-2024 08:09-0500 Systolic blood pressure 126 mm[Hg] Rosi Hinton [facility] 05-07-2024 08:09-0500 Body temperature 98.42 [degF] Rosi Hinton [facility] 05-07-2024 04:41-0500 Body temperature 98.06 [degF] Rosi Hinton [facility] 05-07-2024 04:41-0500 Diastolic blood pressure 66 mm[Hg] Rosi Hinton [facility] 05-07-2024 04:41-0500 Heart rate 92 /min Rosi Hinton [facility] 05-07-2024 04:41-0500 Mean blood pressure 86 mm[Hg] Rosi Hinton [facility] 05-07-2024 04:41-0500 Respiratory rate 18 /min Rosi Hinton [facility] 05-07-2024 04:41-0500 SaO2% (BldA) [Mass fraction] 92 % Rosi Hinton [facility] 05-07-2024 04:41-0500 Systolic blood pressure 127 mm[Hg] Rosi Hinton [facility] 05-07-2024 00:00-0500 Body temperature 98.42 [degF] Rosi Hinton [facility] 05-06-2024 20:00-0500 Blood Pressure Location Rosi Hinton [facility] 05-06-2024 20:00-0500 gluc 143 mg/dL Rosi Hinton [facility] 05-06-2024 11:22-0500 BP/Pulse Patient Position Rosi Hinton [facility] 05-06-2024 11:22-0500 Mean blood pressure 77 mm[Hg] Rosi Hinton [facility] 05-06-2024 11:22-0500 Body temperature 98.06 [degF] Rosi Hinton [facility] 05-05-2024 16:00-0500 Body temperature 97.88 [degF] Rosi Hinton [facility] 05-05-2024 16:00-0500 Mean blood pressure 75 mm[Hg] Rosi Hinton [facility] 05-05-2024 14:05-0500 Body temperature 97.7 [degF] Rosi Hinton [facility] 05-05-2024 14:05-0500 Mean blood pressure 84 mm[Hg] Rosi Hinton [facility] 05-05-2024 14:05-0500 Respiratory rate 21 /min Rosi Hinton [facility] 05-05-2024 13:55-0500 Respiratory rate 16 /min Rosi Hinton [facility] 05-05-2024 13:50-0500 Respiratory rate 18 /min Rosi Hinton [facility] 05-05-2024 13:28-0500 Body temperature 97.52 [degF] Rosi Hinton [facility] 05-05-2024 05:39-0500 Heart rate 87 /min Rosi Hinton [facility] 05-05-2024 00:10-0500 Heart rate 84 /min Rosi Hinton [facility] 05-04-2024 15:36-0500 Body height 172.7 cm Tesha Lind [employer] Work Phone: [facility] 05-04-2024 15:36-0500 Body mass index (BMI) [Ratio] 27.55 kg/m2 Tesha Lind [employer] Work Phone: [facility] 05-04-2024 15:36-0500 Body weight 82.19 kg Tesha Lind FUEL CELL DESIGNER Work Phone: [facility] 05-04-2024 15:36-0500 Diastolic blood pressure 68 mm[Hg] Tesha Lind FUEL CELL DESIGNER Work Phone: [facility] 05-04-2024 15:36-0500 Heart rate 91 /min Tesha Lind FUEL CELL DESIGNER Work Phone: [facility] 05-04-2024 15:36-0500 Respiratory rate 17 /min Tesha Lind FUEL CELL DESIGNER Work Phone: [facility] 05-04-2024 15:36-0500 SaO2% (BldA) [Mass fraction] 95 % Tesha Lind FUEL CELL DESIGNER Work Phone: [facility] 05-04-2024 15:36-0500 Systolic blood pressure 130 mm[Hg] Tesha Dom FUEL CELL DESIGNER Work Phone: [facility] 01-10-2024 13:59-0400 Body height 172.7 cm Bishop Turcios MD Work Phone: [facility] 01-10-2024 13:59-0400 Body mass index (BMI) [Ratio] 27.52 kg/m2 Bishop Turcios MD Work Phone: [facility] 01-10-2024 13:59-0400 Body weight 82.1 kg Bishop Turcios MD Work Phone: [facility] 01-10-2024 13:59-0400 Diastolic blood pressure 66 mm[Hg] Bishop Turcios MD Work Phone: [facility] 01-10-2024 13:59-0400 Heart rate 68 /min Bishop Turcios MD Work Phone: [facility] 01-10-2024 13:59-0400 SaO2% (BldA) [Mass fraction] 96 % Bishop Turcios MD Work Phone: [facility] 01-10-2024 13:59-0400 Systolic blood pressure 124 mm[Hg] Bishop Turcios MD Work Phone: [facility] Healthcare Encounters Encounter Date Encounter Type Care Provider Facility Start: 10-24-2024 End: 10-25-2024 Pre-admission assessment josette YoungVincent [facility] Start: 10-03-2024 End: 10-03-2024 Office outpatient visit 25 minutes Kesha Marin PA Work Phone: [facility] Comment on above: Elevated liver enzym es (Primary Dx); Post-procedural fever; Cracked nails; Sore of lip Start: 10-03-2024 End: 10-03-2024 ambulatory KESHA Devi HEMCHASITY Not Available Start: 09-27-2024 End: 09-27-2024 ambulatory RAJENDRA REYNA Facility:[facility] Start: 09-27-2024 End: 09-27-2024 Subsequent hospital visit by physician Rajendra Reyna MD Work Phone: [facility] Comment on above: Bile duct obstructio n (Primary Dx) Start: 09-21-2024 End: 09-21-2024 Bamboo flowsheet Bry Zafar DPM Work Phone: [facility] Start: 09-21-2024 End: 09-21-2024 Bamboo flowsheet Bry Zafar DPM Work Phone: [facility] Start: 09-21-2024 End: 09-21-2024 Patient encounter procedure Bry Zafar DPM Work Phone: [facility] Comment on above: Verruca plantaris (P rimary Dx); Foot pain, left Start: 09-21-2024 End: 09-21-2024 ambulatory BRY ZAFAR Not Available Start: 09-07-2024 End: 09-07-2024 Office outpatient visit 15 minutes Kesha Marin PA Work Phone: [facility] Comment on above: Cellulitis of right hand (Primary Dx) Start: 09-07-2024 End: 09-07-2024 ambulatory KESHA Devi HEMCHASITY Not Available Start: 09-07-2024 End: 09-07-2024 Patient encounter procedure Bry Zafar DPM Work Phone: [facility] Comment on above: Verruca plantaris (P rimary Dx); Foot pain, left Start: 09-07-2024 End: 09-07-2024 Bamboo flowsheet Bry Zafar DPM Work Phone: [facility] Start: 09-07-2024 End: 09-07-2024 Bamboo flowsheet Bry Zafar DPM Work Phone: [facility] Start: 08-23-2024 End: 08-23-2024 Bamboo flowsheet Kathrine Forman PA Work Phone: [facility] Start: 08-23-2024 End: 08-23-2024 Bamboo flowsheet Kathrine Forman PA Work Phone: [facility] Start: 08-23-2024 End: 08-23-2024 Office outpatient visit 15 minutes Kathrine Forman PA Work Phone: [facility] Comment on above: Melanocytic nevus of trunk (Primary Dx); Actinic keratosis; Lentigines; History of basal cell carcinoma; Neoplasm of unspecified behavior of bone, soft tissue, and skin; Seborrheic keratosis Start: 08-23-2024 End: 08-23-2024 ambulatory KATHRINE FORMAN Not Available Start: 08-17-2024 End: 08-17-2024 Office outpatient visit 15 minutes Kesha Marin PA Work Phone: [facility] Comment on above: Arthralgia of left t emporomandibular joint (Primary Dx); Neck muscle spasm Start: 08-17-2024 End: 08-17-2024 Bamboo flowsheet Bry Zafar DPM Work Phone: [facility] Start: 08-17-2024 End: 08-17-2024 Bamboo flowsheet Bry Zafar DPM Work Phone: [facility] Start: 08-17-2024 End: 08-17-2024 ambulatory KESHA MARIN Not Available Start: 08-17-2024 End: 08-17-2024 Patient encounter procedure Bry Zafar DPM Work Phone: [facility] Comment on above: Verruca plantaris (P rimary Dx); Foot pain, left Start: 08-03-2024 End: 08-03-2024 ambulatory BRY ZAFAR Not Available Start: 08-03-2024 End: 08-03-2024 Office outpatient new 30 minutes Bry Zafar DPM Work Phone: [facility] Comment on above: Neoplasm of uncertai n behavior of skin (Primary Dx); Verruca plantaris; Foot pain, left Start: 08-02-2024 End: 08-02-2024 ambulatory Shay Espinoza Facility:[facility] Start: 08-02-2024 End: 08-02-2024 Patient encounter procedure Shay Espinoza [facility] Start: 07-26-2024 End: 07-26-2024 ambulatory RAJENDRA REYNA Facility:[facility] Start: 07-18-2024 End: 07-19-2024 ambulatory Mhd Yaser Al-Marrawi Facility:[facility] Start: 07-18-2024 End: 07-19-2024 Patient encounter procedure Mhd Yaser Al-Marrawi [facility] Start: 07-10-2024 End: 07-10-2024 ambulatory BISHOP TURCIOS Not Available Start: 06-21-2024 End: 06-22-2024 ambulatory Mhd Yaser Al-Marrawi Facility:[facility] Start: 06-21-2024 End: 06-21-2024 Lab Drop off Mhd Yaser Al-Marrawi [facility] Start: 06-20-2024 End: 06-20-2024 ambulatory Mhd Yaser Al-Marrawi Facility:[facility] Start: 06-20-2024 End: 06-20-2024 Patient encounter procedure Mhd Yaser Al-Mararyan [facility] Start: 06-20-2024 End: 06-20-2024 ambulatory d [facility] Facility[facility] Start: 06-20-2024 End: 06-20-2024 [facility] Start: 06-14-2024 End: 06-14-2024 Bamboo flowsheet Bishop Turcios MD Work Phone: [facility] Start: 06-14-2024 End: 06-14-2024 Bamboo flowsheet Bishop Turcios MD Work Phone: [facility] Start: 06-14-2024 End: 06-14-2024 Office outpatient visit 25 minutes Bishop Turcios MD Work Phone: [facility] Comment on above: Postprocedural intra abdominal abscess (CMS/HCC) (Primary Dx); S/P cholecystectomy; Microcytic anemia Start: 06-14-2024 End: 06-14-2024 ambulatory BISHOP TURCIOS Not Available Start: 06-14-2024 End: 06-22-2024 Pre-admission assessment Chris Agustin [facility] Start: 06-09-2024 [facility] Start: 06-07-2024 End: 06-08-2024 Pre-admission assessment Clark Harpin [facility] Start: 06-07-2024 End: 06-08-2024 ambulatory Clark X Bass Facility:[facility] Start: 06-05-2024 End: 06-05-2024 ambulatory Mallorie N Veronique Facility:[facility] Start: 06-05-2024 End: 06-05-2024 Patient encounter procedure Mallorie Ezra Floreze [facility] Start: 05-31-2024 End: 05-31-2024 Coordination of care plan Cristina Graham RN [facility] Care Management/Patient Access Comment on above: Transitional Care Ton mccall; Care Coordination; Medical Record Review Start: 05-31-2024 ambulatory UNKNOWN PROVIDER Facili ty:[facility] Start: 05-31-2024 End: 06-02-2024 Phys/qhp telephone evaluation 5-10 min Marjan Gillis EVP MARKETING-PRINCIPAL GIFTS OFFICER Work Phone: [facility] Comment on above: Hospital discharge f ollow-up (Primary Dx) Start: 05-31-2024 End: 05-31-2024 ambulatory FUEL CELL DESIGNER-C Randi Corbin Facility:[facility] Start: 05-31-2024 End: 05-31-2024 Patient encounter procedure Rosi Hinton [facility] Start: 05-26-2024 End: 05-29-2024 Clinisync Result Encounter Generic External Data Provider [facility] Unsolicited Start: 05-26-2024 End: 05-29-2024 Clinisync Result Encounter Generic External Data Provider [facility] External Department Unsolicited Start: 05-24-2024 End: 05-24-2024 ambulatory Cristina Graham RN [facility] Care Management/Patient Access Start: 05-24-2024 End: 05-24-2024 Follow-up encounter Cristina Graham RN [facility] Care Management/Patient Access Comment on above: Transitional Care Ton mccall; Hospital follow-up Start: 05-22-2024 End: 05-22-2024 Evaluation and management of inpatient ATUL DIAB Facility:[facility] Start: 05-21-2024 End: 05-23-2024 Evaluation and management of inpatient IP EGS TEAM [phone] Facility:[facility] Start: 05-21-2024 Emergency department patient visit ATUL DIAB Facility:[facility] Start: 05-21-2024 End: 05-23-2024 Evaluation and management of inpatient Ajay Foy MD Work Phone: [facility] Comment on above: Postprocedural intra abdominal abscess (HCC) (Primary Dx) Start: 05-21-2024 End: 05-23-2024 Clinisync Result Encounter Generic External Data Provider [facility] External Department Unsolicited Start: 05-21-2024 End: 05-23-2024 Clinisync Result Encounter Generic External Data Provider [facility] External Department Unsolicited Start: 05-21-2024 End: 05-21-2024 Telephone encounter Rafaela Christine MD Work Phone: [facility] Start: 05-21-2024 Emergency department patient visit ATUL FINK Facility:[facility] Start: 05-18-2024 End: 05-18-2024 Bamboo flowsheet Kesha JACOBSEN Work Phone: [facility] Start: 05-18-2024 [...] 05-17-2024 End: 05-17-2024 ambulatory MD Clark Bass Facility:[facility] Start: 05-17-2024 End: 05-17-2024 Patient encounter procedure Clark Bass [facility] Start: 05-05-2024 End: 05-07-2024 Evaluation and management of inpatient Rosi Hinton Facility:[facility] Start: 05-04-2024 ambulatory Rosi Hinton Faci lity:[facility] Start: 05-04-2024 End: 05-07-2024 Evaluation and management of inpatient Rosi Jonasmiriamnora [facility] Start: 05-04-2024 End: 05-04-2024 Office outpatient visit 25 minutes Tesha Lind FUEL CELL DESIGNER Work Phone: [facility] Comment on above: Generalized abdomina l pain (Primary Dx); Chronic idiopathic constipation Start: 05-04-2024 End: 05-04-2024 ambulatory TESHA LIND Not Available Start: 05-04-2024 End: 05-04-2024 Bamboo flowsheet Tesha Lind FUEL CELL DESIGNER Work Phone: [facility] Start: 05-04-2024 End: 05-04-2024 Bamboo flowsheet Tesha Lind FUEL CELL DESIGNER Work Phone: [facility] Start: 03-28-2024 [...] sutures Start: 03-28-2024 End: 03-28-2024 ambulatory KATHRINE FORMAN Not Available Start: 03-15-2024 End: 03-15-2024 Patient encounter procedure Adan Suarez MD Work Phone: [facility] Comment on above: Basal cell carcinoma (BCC) of skin of other part of torso (Primary Dx); Encounter for removal of sutures Start: 03-15-2024 End: 03-15-2024 ambulatory ADAN SUAREZ Not Available Start: 03-01-2024 End: 03-01-2024 Patient encounter procedure Adan Suarez MD Work Phone: [facility] Comment on above: Basal cell carcinoma (BCC) of skin of other part of torso (Primary Dx) Start: 03-01-2024 End: 03-01-2024 ambulatory ADAN SUAREZ Not Available Start: 03-01-2024 End: 03-01-2024 Bamboo flowston Suarez MD Work Phone: [facility] Start: 03-01-2024 End: 03-01-2024 Bamboo flowston Suarez MD Work Phone: [facility] Start: 01-10-2024 End: 01-10-2024 Assay of [...] without myelopathy or radiculopathy; Lipoprotein deficiency disorder (CMS/HCC) Start: 01-10-2024 End: 01-10-2024 ambulatory BISHOP TURCIOS Not Available Start: 01-03-2024 End: 01-03-2024 Bamboo flowsheet Kathrine JACOBSEN Work Phone: [facility] Start: 01-03-2024 End: 01-03-2024 Bamboo flowsheet Kathrine JACOBSEN Work Phone: [facility] Start: 01-03-2024 End: 01-03-2024 Office outpatient visit 15 minutes Kathrine JACOBSEN Work Phone: [facility] Comment on above: Seborrheic keratosis (Primary Dx); Lentigines; History of basal cell carcinoma; Actinic keratosis; Neoplasm of unspecified behavior of bone, soft tissue, and skin Start: 01-03-2024 End: 01-03-2024 ambulatory KATHRINE FORMAN Not Available Start: 05-12-2019 End: 05-13-2019 Patient encounter procedure KESHA MARIN Facility:[facility] Start: 05-09-2019 End: 05-10-2019 Patient encounter procedure KESHA MARIN Facility:[facility] Start: 04-11-2019 End: 04-12-2019 Patient encounter procedure KESHA MARIN Facility:[facility] Start: 04-04-2019 End: 04-05-2019 Patient encounter procedure KESHA MARIN Facility:[facility] Start: 07-07-2018 End: 07-08-2018 Patient encounter procedure BISHOP TURCIOS Facility:[facility] Procedures Date Procedure Procedure Detail Performing Clinician Start: 09-27-2024 Ercp dx collection specimen brushing/washing Rajendra Reyna MD Work Phone: Start: 08-23-2024 SKIN / NAIL BIOPSY Kathrine JACOBSEN Work Phone: Start: 08-23-2024 CRYOTHERAPY SKIN LESION Kathrine JACOBSEN Work Phone: Start: 05-26-2024 AEROBIC CULTURE Generic External Mumtaz a Provider Start: 05-23-2024 Assay of magnesium Tracy Vesna LEONARD Work Phone: Start: 05-22-2024 Cul bact xcpt urine blood/stool aerobic isol Rosi Hinton MD Work Phone: Start: 05-22-2024 Radiological guidance prq drg w/plmt cath rs&i Carlos Umana MD Work Phone: Start: 05-22-2024 Blood count complete automated Carlos Umana MD Work Phone: Start: 05-21-2024 Blood typing serologic abo Sujit Steen DO Work Phone: Start: 05-21-2024 Radiology Comparison study - date and time Sujit Steen DO Work Phone: Start: 05-21-2024 Blood typing, ABO, Rho(D) and RBC antibody screening Sujit Steen DO Work Phone: Start: 05-21-2024 Thromboplastin time partial plasma/whole blood Sujit Steen DO Work Phone: Start: 05-21-2024 AEROBE ID + SUSCEPT Generic External Mumtaz a Provider Start: 05-21-2024 ANAEROBE IDENTIFICATION ONLY Generic External Data Provider Start: 05-05-2024 Cholecystectomy Clark Bass Start: 03-28-2024 [...] S/P cholecyste ctomy Kesha JACOBSEN Work Phone: History of cholecystectomy S/P cholecyste ctomy Bishop Turcios MD Work Phone: Plan of Treatment Date Care Activity Detail Author Start: 01-06-2032 Tetanus vaccination Tetanus (Td or Tdap) Booster [facility] Start: 07-10-2025 Medicare Annual Wellness (AWV) Medicare Annual Wellness (AWV) [facility] Healthcare Start: 06-24-2025 Annual Wellness Visit (G0439) Annual Wellness Visit (G0439) [facility] Start: 02-13-2025 End: 02-13-2025 Patient encounter procedure 02/13/2025 1:40 PM EDT Office Visit [facility] [address] [place] [id number] Kathrine Forman PA [address] [place], [place] [id number] [facility] Start: 01-15-2025 End: 01-15-2025 Patient encounter procedure 01/15/2025 1:00 PM EDT Office Visit [facility] [address] [place] [address] Bishop Turcios MD [address] [place], [place] [id number] [facility] Start: 01-09-2025 Medicare Annual Wellness (AWV) Medicare Annual Wellness (AWV) [facility] Start: 11-15-2024 End: 11-15-2024 Patient encounter procedure 11/15/2024 1:30 PM EDT Procedure Visit [facility] [address] [place] [address] Adan Suarez MD [address] [place], [place] [id number] [facility] Start: 10-17-2024 End: 10-03-2025 Hepatic function 2000 panel - Serum or Plasma Hepatic function panel Lab Routine Elevated liver enzymes Expected: 10/17/2024 (Approximate), Expires: 10/03/2025 [facility] Work Phone: Comment on above: Expected: 10/17/2024 (Approximate), Expi res: 10/03/2025 Start: 09-29-2024 End: 09-29-2024 Patient encounter procedure 09/29/2024 12:30 PM EDT Office Visit [facility] [address] [place] [address] Adan Suarez MD [address] [place] [address] [facility] Start: 09-27-2024 End: 09-27-2024 Ercp dx collection specimen brushing/washing ERCP Bile duct abnormality 09/27/2024 11:20 AM EDT [facility] Start: 09-21-2024 End: 09-21-2024 Patient encounter procedure [facility] Comment on above: Verruca plantaris (Primary Dx); Foot pain, left Start: 09-07-2024 End: 09-07-2024 Patient encounter procedure [facility] Start: 08-23-2024 End: 08-23-2024 Patient encounter procedure [facility] Comment on above: Arrived Start: 08-17-2024 End: 08-17-2024 Patient encounter procedure 08/17/2024 2:30 PM EDT Office Visit [facility] [address] [place] [address] Kesha Marin PA [address] [place] [address] [facility] Start: 08-14-2024 End: 08-14-2024 Patient encounter procedure 08/14/2024 1:00 PM EDT Office Visit [facility] [address] [place] [address] Bishop Turcios MD [address] [place] [address] [facility] Start: 07-10-2024 End: 07-10-2024 Patient encounter procedure 07/10/2024 1:00 PM EDT Office Visit [facility] [address] [place] [address] Bishop Turcios MD [address] [place] [address] [facility] Start: 07-03-2024 End: 07-03-2024 Patient encounter procedure 07/03/2024 3:00 PM EDT Office Visit [facility] [address] [place] [address] Kathrine Forman, ANN-MARIE [address] [place] [address] [facility] Start: 07-02-2024 COVID-19 Vaccine ( season) COVID-19 Vaccine ( season) [facility] Start: 06-14-2024 End: 06-14-2024 Patient encounter procedure 06/14/2024 11:15 AM EST Office Visit [facility] [address] [place] [address] Bishop Turcios MD [address] [place] [address] Arrived [facility] Comment on above: Arrived Start: 06-05-2024 End: 06-05-2024 Patient encounter procedure 06/05/2024 11:30 AM EST Office Visit [facility] [address] [place] [address] Bishop Turicos MD [address] [place] [address] [facility] Start: 06-01-2024 End: 05-18-2025 CBC panel - Blood by Automated count CBC Lab Routine Microcytic anemia Thrombocytopenia (CMS/HCC) Expected: 06/01/2024 (Approximate), Expires: 05/18/2025 [facility] Work Phone: Comment on above: Expected: 06/01/2024 (Approximate), Expi res: 05/18/2025 Start: 05-18-2024 End: 05-18-2024 Patient encounter procedure 05/18/2024 1:00 PM EST Office Visit [facility] [address] [place] [address] Kesha Marin PA [address] [place] [address] Arrived [facility] Comment on above: Arrived Start: 05-04-2024 End: 05-04-2024 Patient encounter procedure 05/04/2024 3:30 PM EST Office Visit [facility] [address] [place] [phone] Tesha Lind, FUEL CELL DESIGNER [address] [place] [address] Arrived [facility] Comment on above: [...] DERM [address] [place] [address] Adan Suarez MD [address] [place], [place] [phone] [facility] Start: 03-01-2024 End: 03-01-2024 [...] Lipid panel Lab Routine Lipoprotein deficiency disorder (CMS/HCC) Expected: 01/10/2024 (Approximate), Expires: 01/09/2025 [facility] Healthcare Comment on above: Expected: 01/10/2024 (Approximate), Expi res: 01/09/2025 Start: 01-10-2024 End: 01-10-2024 Patient encounter procedure [facility] Comment on above: Arrived Start: 01-10-2024 End: 01-09-2025 TSH W/REFLEX TO FT4 TSH W/REFLEX TO FT4 Lab Routine Hypothyroidism (acquired) (CMS/HCC) Expected: 01/10/2024 (Approximate), Expires: 01/09/2025 [facility] Healthcare Comment on above: Expected: 01/10/2024 (Approximate), Expi res: 01/09/2025 Start: 01-07-2024 Medicare Annual Wellness (AWV) Medicare Annual Wellness (AWV) [facility] Start: 01-03-2024 End: 01-03-2024 Patient encounter procedure 01/03/2024 1:30 PM EDT Office Visit [facility] [address] [place] [phone] Kathrine Forman, PA [address] [place] [address] Arrived [facility] Comment on above: Arrived Start: 12-26-2023 Influenza vaccination Influenza Vaccine (#1) [facility] Start: 2002 Hepatitis B (HBV) Vaccine (optional start 60+ years) Hepatitis B (HBV) Vaccine (optional start 60+ years) [facility] Start: 1961 Hepatitis A (HAV) Vaccine (optional start 19+ years) Hepatitis A (HAV) Vaccine (optional start 19+ years) [facility] AEROBE ID + SUSCEPT AEROBE ID + SUSCEPT Lab Routine 05/21/2024 8:40 AM EST [facility] AEROBIC CULTURE AEROBIC CULTURE Lab Routine 05/26/2024 1:40 PM EST [facility] ANAEROBE IDENTIFICAT ION ONLY ANAEROBE IDENTIFICATION ONLY Lab Routine 05/21/2024 8:40 AM EST [facility] CBC W Auto Different ial panel - Blood CBC and differential Lab Routine Routine general medical examination at health care facility Spondylosis of cervical region without myelopathy or radiculopathy Ordered: 01/10/2024 [facility] Work Phone: Comment on above: Ordered: 01/10/2024 Dermatopathology exam Dermatopat hology exam Pathology and Cytology Timed Basal cell carcinoma (BCC) of skin of other part of torso Release Upon Ordering for 1 Occurrences starting 03/01/2024 [facility] Work Phone: Comment on above: Release Upon Ordering for 1 Occurrences starting 03/01/2024 Dermatopathology exam Dermatopat hology exam Pathology and Cytology Timed Basal cell carcinoma (BCC) of skin of other part of torso Release Upon Ordering for 1 Occurrences starting 03/15/2024 [facility] Work Phone: Comment on above: Release Upon Ordering for 1 Occurrences starting 03/15/2024 Dermatopathology exam Dermatopat hology exam Pathology and Cytology Timed Neoplasm of unspecified behavior of bone, soft tissue, and skin Release Upon Ordering for 1 Occurrences starting 01/03/2024 [facility] Work Phone: Comment on above: Release Upon Ordering for 1 Occurrences starting 01/03/2024 Dermatopathology exam Dermatopat hology exam Pathology and Cytology Timed Neoplasm of unspecified behavior of bone, soft tissue, and skin Release Upon Ordering for 1 Occurrences starting 08/23/2024 [facility] Work Phone: Comment on above: Release Upon Ordering for 1 Occurrences starting 08/23/2024 Immunizations Immunization Date Immunization Notes Care Provider [facility] 01-11-2024 Respiratory syncytia l virus (RSV), vaccine, recombinant, protein subunit RSV prefusion F, adjuvant reconstituted, 0.5 mL, preservative free (OYO=[id number]) Rajendra Reyna MD Work Phone: [facility] 01-11-2024 respiratory syncytia l virus monoclonal antibody (palivizumab), intramuscular Adan Suarez MD Work Phone: [facility] [place] 01-03-2024 influenza virus vaccine, unspecified formulation Rosi Hinton [facility] 01-03-2024 influenza, high dose seasonal, preservative-free Rajendra Reyna MD Work Phone: [facility] 01-03-2024 influenza, seasonal, injectable Bishop Turcios MD Work Phone: [facility] 01-03-2024 Pfizer Cardona Cap SARS-CoV-2 Vaccination Bishop Turcios MD Work Phone: [facility] 01-22-2023 influenza, seasonal, injectable Kathrine Forman PA Work Phone: [facility] 01-22-2023 influenza virus vaccine, unspecified formulation Kathrine Bryon PA Work Phone: [facility] 02-11-2022 influenza virus vaccine, unspecified formulation Rosi Hinton [facility] 02-11-2022 Influenza, High-dose Seasonal, Quadrivalent, Preservative Free Kathrinetemi Forman PA Work Phone: [facility] 01-05-2022 pneumococcal polysaccharide vaccine, 23 valent Kathrine Forman PA Work Phone: [facility] 01-05-2022 tetanus toxoid, redu yusra diphtheria toxoid, and acellular pertussis vaccine, adsorbed Kathrine Forman PA Work Phone: [facility] 12-10-2021 SARS-CoV-2 mRNA (luqbyuabtoh-scjq-[id number] se) vaccine Rosi Hinton [facility] 08-06-2021 SARS-CoV-2 mRNA (sheaadeumot-gysz-zrudj se) vaccine Rosi Hinton [facility] 01-29-2021 influenza virus vaccine, unspecified formulation Rosi Hinton [facility] 01-29-2021 Influenza, High-dose Seasonal, Quadrivalent, Preservative Free Kathrine Bryon PA Work Phone: [facility] 01-29-2021 SARS-CoV-2 (COVID-19 ) mRNA BNT-162b2 vax Rosi Hinton [facility] 01-07-2021 SARS-CoV-2 (COVID-19 ) mRNA BNT-162b2 vax Rosi Hinton [facility] 07-25-2020 zoster vaccine recombinant Kathrine Bryon PA Work Phone: [facility] 05-12-2020 zoster vaccine recombinant Kathrine Bryon PA Work Phone: [facility] 01-26-2020 influenza virus vaccine, unspecified formulation Rosi Hinton [facility] 01-26-2020 Seasonal, quadrivale nt, recombinant, injectable influenza vaccine, preservative free Kathrine Bryon PA Work Phone: [facility] 02-08-2019 influenza virus vaccine, unspecified formulation Rosi Hinton [facility] 02-08-2019 influenza, high dose seasonal, preservative-free Kathrine Bryon PA Work Phone: [facility] 12-23-2018 pneumococcal conjuga te vaccine, 13 valent Kathrine Bryon PA Work Phone: [facility] 01-24-2018 influenza virus vaccine, unspecified formulation Rosi Hinton [facility] 01-24-2018 influenza, high dose seasonal, preservative-free Kathrine Bryon PA Work Phone: [facility] 12-28-2016 influenza virus vaccine, unspecified formulation Rosi Hinton [facility] 12-28-2016 influenza, high dose seasonal, preservative-free Kathrine Bryon PA Work Phone: [facility] 11-25-2015 zoster vaccine, live Kathrine Bryon PA Work Phone: [facility] 12-25-2009 pneumococcal polysaccharide vaccine, 23 valent Kathrine Bryon PA Work Phone: [facility] Payers Date Payer Category Payer Unknown [id number] 2024 Self-pay 2024 [employer] Blue [employer] - MEDICARE [id number] 2022 Medicare [id number] 2022 Medicare (Managed Care) [facility] [id number] [id number] 1959 Unknown [id number] 1942 Unknown [id number] 2.16840.1.836379.3.579. 2.59 1942 Unknown [id number] 2.16840.1.311936.3.579. 2. 1942 Unknown [id number] 2.16840.1.089641.3.579. 2.59 1942 Unknown [id number] 2.16840.1.670406.3.579. 2. 1942 Unknown [id number] 2.16.840.1.933586.3.579. 2.593 1942 Unknown [id number] 2.16.840.1.964485.3.579. 2. 1942 Unknown [id number] 2.16.840.1.436751.3.579. 2. 1942 Unknown [id number] 2.16.840.1.145444.3.579. 2. 1942 Unknown [id number] 2.16.840.1.038382.3.579. 2 1942 Unknown [id number] 2.16.840.1.402175.3.579. 2 1942 Unknown [id number] 2.16.840.1.668571.3.579. 2 1942 Unknown [id number] 2.16.840.1.238048.3.579. 2 1942 Unknown [id number] 2.16.840.1.257550.3.579. 2 1942 Unknown [id number] 2.16.840.1.261320.3.579. 2 1942 Unknown [id number] 2.16.840.1.010764.3.579. 2 1942 Unknown [id number] 2.16.840.1.241818.3.579. 2 1942 Unknown [id number] 2.16.840.1.629974.3.579. 2 1942 Unknown [id number] 2.16.840.1.036114.3.579. 2 1942 Unknown [id number] 2.16.840.1.049285.3.579. 2 1942 Unknown [id number] 2.16.840.1.455789.3.579. 2.727 1942 Unknown [id number] 2.16.840.1.770914.3.579. 2. 1942 Unknown [id number] 2.16.840.1.588111.3.579. 2. 1942 Unknown [id number] 2.16.840.1.248970.3.579. 2. 1942 Unknown [id number] 2.16.840.1.835589.3.579. 2. 1942 Unknown [id number] 2.16.840.1.316362.3.579. 2. 1942 Unknown [id number] 2.16.840.1.462009.3.579. 2. 1942 Unknown [id number] 2..840.1.211286.3.579. 2. 1942 Unknown [id number] 2.16.840.1.321444.3.579. 2. 1942 Unknown [id number] 2.16.840.1.211629.3.579. 2 1942 Unknown [id number] 2.16.840.1.274895.3.579. 2. 1942 Unknown [id number] 2.16.840.1.829426.3.579. 2. 1942 Unknown [id number] 2.16.840.1.578154.3.579. 2. 1942 Unknown [id number] 2.16.840.1.643102.3.579. 2.1258 1942 Unknown [id number] 2.16.840.1.417260.3.579. 2.125 1942 Unknown [id number] 2.16.840.1.530175.3.579. 2.1258 1942 Unknown [id number] 2.16.840.1.651669.3.579. 2.1258 1942 Unknown [id number] 2.16.840.1.628765.3.579. 2.1258 1942 Unknown [id number] 2.16.840.1.911641.3.579. 2.1258 1942 Unknown [id number] 2.16.840.1.830526.3.579. 2.1258 1942 Unknown [id number] 2.16.840.1.926332.3.579. 2.1258 1942 Unknown [id number] 2.16.840.1.497445.3.579. 2.1258 1942 Unknown [id number] 2.840.1.254099.3.579. 2.1258 1942 Unknown [id number] 2.840.1.768982.3.579. 2.1258 1942 Unknown [id number] 2.840.1.378433.3.579. 2.1258 1942 Unknown [id number] 2.16.840.1.461084.3.579. 2.1258 1942 Unknown [id number] 2.840.1.133733.3.579. 2.1258 1942 Unknown [id number] 2.16840.1.331358.3.579. 2.1258 1942 Unknown [id number] 2.16840.1.956463.3.579. 2.1258 1942 Unknown [id number] 2.840.1.890675.3.579. 2.1259 Social History Date Type Detail Facility Start: 12-16-2022 End: 06-21-2024 Tobacco smoking status [facility] Never smoked tobacco [facility] Start: 12-16-2022 Tobacco use and exposure Smokeless tobacco non-user [facility] Start: 01-10-2024 End: 10-03-2024 Alcoholic beverage intake Ex-drinker (finding) [facility] Start: 01-10-2024 End: 05-21-2024 History of Social function [facility] Start: 01-10-2024 End: 05-21-2024 Tobacco use panel [facility] Start: 1940 Sex assigned at Not on file [facility] Tobacco smoking status [facility] Tobacco smoking status Never [facility] Start: 05-04-2024 End: 05-21-2024 Sex Male (finding) [facility] Are you now , , , , never or living with a partner? Living with partner [facility] Work Phone: (I/We) worried whetoni er (my/our) food would run out before (I/we) got money to buy more. Never true [facility] Tobacco smoking stat [facility] Tobacco smoking consumption unknown [facility] Work Phone: Has the [employer], [employer], [employer], or water company threatened to shut off services in your home in past 12Mo No [facility] Medical Equipment Procedure Code Equipment Code Equipment Origin al Text Equipment Identifier Dates Stnt Doug 10fr 7c m Ddnl Bnd Dlv [id number] - [id number] Start: 07-26-2024 Functional Status Date Assessment Result Facility 10-03-2024 Patient Health Quest ionnaire 2 item (PHQ-2) [Reported] [facility] 09-07-2024 Patient Health Quest ionnaire 2 item (PHQ-2) [Reported] [facility] 08-17-2024 Patient Health Quest ionnaire 2 item (PHQ-2) [Reported] [facility] 05-05-2024 Functional Status N/A [facility] Clinical Notes 01-03-2024 to 10-03-2024 ANN-MARIE Corey - 10/03/2024 2:30 PM EDTDischarge Rajendra Guardado MD - 09/27/2024 10:30 AM EDTOP Note - Rajendra Reyna MD - 09/27/2024 9:52 AM EDTDischarge Instructions Note Date & Type Note Facility 10-03-2024 History of Present illness Narrative Images from the original note were not included. Subjective Patient ID: Valencia Brooks is a 84 y.o. male who presents for [facility] ER follow up. Valencia is present today for [facility] ER follow up. Dx. Elevated LFT's and post procedural fever. He had an ERCP and had stent removal. Pt is feeling much better but he does have some sores on his lips and the left side of his jaw feels like it may have a sore on it too. Left thumb nail cracked down the middle. Current Outpatient Medications on File Prior to [...] time each day at the same time. diphenhydrAMINE (Sominex) 25 MG tablet Take 25 mg by mouth at bedtime Takes for sleep Docusate Sodium (DSS) 100 MG capsule Take [...] THE MORNING BEFORE MEAL(S) 100 tablet 1 melatonin 5 MG tablet Take 1 tablet by mouth 1 (one) time each day at the same time PRN Multiple Vitamin (MULTIVITAMINS PO) Take 1 tablet by mouth 1 (one) time each day. omeprazole (PriLOSEC) [address] capsule Take 1 capsule (40 mg) by mouth in the morning. Take before meals. Do not crush or chew.. 90 capsule 3 tiZANidine (Zanaflex) 4 MG tablet Take 1 tablet (4 mg) by mouth every 12 (twelve) hours if needed for muscle spasms for up to 10 days 20 tablet 0 No current facility-administered medications on file prior to visit. I have reviewed and reconciled the history and medication list with the patient today. Allergies Allergen Reactions Bee Venom Meloxicam Hives Naproxen Hives Penicillin G Hives and Unknown Penicillins Swelling Per pt his fingers swell Social History Tobacco Use Smoking status: Never Smokeless tobacco: Never Vaping Use Vaping status: Never Used Substance Use Topics Alcohol use: Not Currently Drug use: Never Family History Problem Relation Name Age of Onset Heart disease Mother Heart disease Father Past Medical History: Diagnosis Date Actinic keratosis Basal cell carcinoma GERD (gastroesophageal reflux disease) History of being hospitalized 05/04/2024 Acute Gangrenous Cholecystitis with Perforation, Anemia Hypothyroidism (CMS/HCC) Past Surgical History: Procedure Laterality Date CHOLECYSTECTOMY 05/05/[address] GUIDED CRYOABLATION RENAL RIGHT Right 05/22/2024 CT GUIDED CRYOABLATION RENAL RIGHT 05/22/2024 FOOT SURGERY Bilateral 1994 bone spur removal surgery - Dr. Cifuentes GANGLION CYST EXCISION Right 09/13/2018 wrist Visit Vitals BP 102/58 Pulse 68 Resp 16 Ht 5' 8 Wt 171 lb SpO2 97% BMI 26.00 kg/m Smoking Status Never BSA 1.93 m Review of Systems Constitutional: Negative for chills, fatigue and fever. Respiratory: Negative for cough, shortness of breath and wheezing. Cardiovascular: Negative for chest pain, palpitations and leg swelling. Gastrointestinal: Negative for abdominal pain, blood in stool, constipation, diarrhea, nausea and vomiting. Skin: Negative for rash. Nail changes Objective Physical Exam Constitutional: General: He is not in acute distress. Appearance: Normal appearance. HENT: Head: Normocephalic and atraumatic. Mouth/Throat: Comments: Healing sores upper and lower lips, no signs of infection. See photo Eyes: General: No scleral icterus. Cardiovascular: Rate and Rhythm: Normal rate and regular rhythm. Heart sounds: No murmur heard. Pulmonary: Effort: Pulmonary effort is normal. No respiratory distress. Breath sounds: Normal breath sounds. No wheezing, rhonchi or rales. Abdominal: General: Bowel sounds are normal. There is no distension. Palpations: Abdomen is soft. Tenderness: There is no abdominal tenderness. There is no guarding. Musculoskeletal: General: No swelling. Skin: General: Skin is warm and dry. Comments: Left thumb nail with crack down center, no signs of infection. Neurological: General: No focal deficit present. Mental Status: He is alert and oriented to person, place, and time. Psychiatric: Mood and Affect: Mood normal. Behavior: Behavior normal. Assessment/Plan Diagnoses and all orders for this visit: Elevated liver enzymes - Hepatic function panel; Future Liver enzymes elevated in hospital. Will plan to recheck liver in two weeks. Post-procedural fever This has resolved for patient. The patient was seen today in follow up of recent hospital ER visit. All available hospital records/labs/diagnostics were reviewed and discussed with the patient. ER discharge meds were reviewed. Any changes to plan are as noted. Cracked nails Advised of some potential causes, medication, aging, dry nails, injury to nails, nutritional deficiencies, etc. Could consider trying OTC nail strengthener. Discuss with Dr. Suarez if needed at upcoming appt. Sore of lip Continue Carmex to lips several times a day. They are improving. No Rx needed at this time. Avoid licking lips. Follow up for Appointment As Scheduled. documented in this encounter [facility] 09-27-2024 Hospital Discharge instructions Jordyn Alvarado RN - 09/27/2024 11:54 AM EDT Images from the original note were not included. IMPRESSION: 1. Plastic bile duct stent removal. 2. Bile duct sludge extraction. 3. Bile duct stone removal. RECOMMENDATIONS: 1. Watch for signs of bleeding, perforation, cholangitis and pancreatitis. 2. F/U with PCP. 3. No further recommendations at this time. Patient Education Monitored Anesthesia Care About this topic Monitored anesthesia care is also known as MAC. With MAC, the goal is to keep you safe, comfortable, and relaxed for your procedure. Doctors may use this kind of anesthesia when you don t need to be fully asleep. With MAC, you may have a very light calm feeling. Other times, you may have a very deep sleepiness. This depends on what the doctor needs for you and your procedure. Only someone with special training can give MAC, and this includes: Anesthesiologists Certified registered nurse anesthetists (CRNAs) Anesthesia Assistants Why is this procedure done? This type of anesthesia is often for procedures like: Breast tissue samples Colonoscopy Vasectomy Dental surgery, like an implant or taking out an impacted tooth Minor foot surgery Endoscopy Fix a broken bone Plastic cosmetic surgery Endotracheal procedure What happens during the procedure? Doctors determine what your sedation level will be during your procedure. For some procedures, you are very relaxed, sleepy, and you are easy to wake up when needed. For others, you are able to talk and answer questions. For some procedures, you are in a deep sleep. The deeper the sedation, the less likely you are to remember the procedure. Many people do not remember their procedure at all after MAC, but others do. Talk to your doctor if you worry about your level of sedation for your procedure. What happens after the procedure? Side effects are less common than with general anesthesia. Some people still have: Headache Upset stomach or throw up Hangover feeling Short period of no memory Bad memories What care is needed at home? Have a responsible adult with you after your procedure to help you. They can also call for help if you have problems. Do not make major decisions or sign important papers for at least 24 hours. You may not be thinking clearly. Do not drive or operate machinery for 24 hours or until your doctor says you can. What problems could happen? Low blood pressure Breathing problems Allergic reaction Too much or not enough sedation Last Reviewed Date 2020-11-18 Consumer Information Use and Disclaimer This generalized information is a limited summary of diagnosis, treatment, and/or medication information. It is not meant to be comprehensive and should be used as a tool to help the user understand and/or assess potential diagnostic and treatment options. It does NOT include all information about conditions, treatments, medications, side effects, or risks that may apply to a specific patient. It is not intended to be medical advice or a substitute for the medical advice, diagnosis, or treatment of a health care provider based on the health care provider's examination and assessment of a patient s specific and unique circumstances. Patients must speak with a health care provider for complete information about their health, medical questions, and treatment options, including any risks or benefits regarding use of medications. This information does not endorse any treatments or medications as safe, effective, or approved for treating a specific patient. [employer] and its affiliates disclaim any warranty or liability relating to this information or the use thereof. The use of this information is governed by the Terms of Use, available at https://www.woltersHello! Messengeruwer.com/en /know/nhmhrbju-umvkqgwpgrnrv-lhd ms Copyright Copyright 2023 [employer] and its affiliates and/or licensors. All rights reserved. Falls Prevention Each year, 1 in every 3 adults over the age of 65 are treated for fall-related injuries. The risk of falling increases with each decade of life. The good news is, many falls are preventable. Here are some fall prevention tips: Exercise can increase strength and improve balance, making falls much less likely. For more informati on visit: http://[employer].org/serv ices/lgge-lsclld-tq-your-health/ r-cewroy-yx-balance/ Some medications or combinations of medications can lead to side effects that cause falls. Have a doctor or pharmacist review all medications to help reduce the chance of risky side effects. Poor vision can lead to falls. Have your eyes checked every year. Ensure that your glasses are the correct strength. Eliminate hazards in your home by completing this home safety checklist. Remove things you can trip over from stairs and places you walk Install handrails and lights on all staircases. Remove small throw rugs or use double-sided tape to keep rugs from slipping. Keep items you use often in cabinets you can reach easily without using a step stool. Put grab bars inside and next to the tub or shower and next to your toilet.Use non-slip mats in the bathtub and on shower floors. Improve the lighting in your home. Hang lightweight curtains or shades to reduce glare. Wear shoes both inside and outside the house. Avoid going barefoot or wearing slippers. To lower the risk of hip fractures: Get adequate calcium and vitamin D, from food and/or supplements. Do weight bearing exercise. Get screened for osteoporosis and treated if needed documented in this encounter [facility] 09-27-2024 Miscellaneous Notes Images from the original note were not included. Valencia Brooks 84 year old Surgical Contact Serial Number: [id number] Location: ENDO 05 Date: 09/27/2024 CENTER CUSTOMER SERVICE ASSOCIATE: Rajendra Reyna MD ATTENDING:Rajendra Reyna MD Procedure(s): ERCP INSTRUMENT: Scope #[id number] SEDATION: Anesthesia Assisted Pre-Op Diagnosis Codes: * Bile duct abnormality [K83.9] INDICATIONS: This is a 84 year old male with history of bile leak. Patient verbalized understanding. While monitoring the patient with continuous use of P, BP, O2 and EKG, therapeutic duodenoscope passed to second portion of duodenum under direct visualization without difficulty. The previously placed bile duct stent was seen in place and was removed with an endoscopic snare. Ampulla placed en face and appeared normal. CBD was selectively cannulated and injection of contrast revealed a normal caliber CBD without filling defects or mass effect. CHD and intra-hepatic ducts were normal. Cystic duct takeoff was visualized and was normal. A 9mm extraction balloon was used to sweep the duct. Sludge was removed. One stone was removed. Occlusion cholangiogram was performed and was normal. Bile leak. AG PATH SPECIMEN SENT: None. SPECIMEN: None PHOTOGRAPH TAKEN: Yes. COMPLICATIONS DURING PROCEDURE: None EBL (estimated blood loss): None. IMPRESSION: 1. Plastic bile duct stent removal. 2. Bile duct sludge extraction. 3. Bile duct stone removal. RECOMMENDATIONS: 1. Watch for signs of bleeding, perforation, cholangitis and pancreatitis. 2. F/U with PCP. 3. No further recommendations at this time. CC: Primary Care/Referring Physician(s): No primary care provider on file. PERSON COMPLETING NOTE: Rajendra Reyna MD 09/27/2024 at 11:26 AM Patient meets criteria for discharge/transfer: Rajendra Reyna MD Written informed consent obtained from patient. Endoscopic procedure risks (including but not limited to perforation, infection, bloating and bleeding) benefits and alternatives explained and questions answered. Patient verbalized understanding. HISTORY & PHYSICAL: Patient's history with special attention to the cardiovascular, pulmonary systems and the current problem was reviewed with the patient prior to the procedure. Medications, allergies, and pertinent laboratory tests were also reviewed at this time. The physical examination,as below, was then performed. Vital Signs Reviewed Mouth and Pharynx : Oropharynx, clear Cardiac: regular rate and rhythm Pulmonary: Chest clear to auscultation bilaterally Neurological: normal without focal findings Abdomen: Abdomen soft, non-tender. BS normal. Patient will undergo sedation with the assistance of anesthesia physician/CLIENT HR MANAGER team. Please see corresponding note for full details. Rajendra Reyna MD 09/27/2024 9:52 AM documented in this encounter [facility] 09-27-2024 Surgery Surgical operation note Images from the original note were not included. Valencia Brooks 84 year old Surgical Contact Serial Number: [id number] Location: [place] [id number] Date: 09/27/2024 CENTER CUSTOMER SERVICE ASSOCIATE: Rajendra Reyna MD ATTENDING:Rajendra Reyna MD Procedure(s): ERCP INSTRUMENT: Scope #[id number] SEDATION: Anesthesia Assisted Pre-Op Diagnosis Codes: * Bile duct abnormality [K83.9] INDICATIONS: This is a 84 year old male with history of bile leak. Patient verbalized understanding. While monitoring the patient with continuous use of P, BP, O2 and EKG, therapeutic duodenoscope passed to second portion of duodenum under direct visualization without difficulty. The previously placed bile duct stent was seen in place and was removed with an endoscopic snare. Ampulla placed en face and appeared normal. CBD was selectively cannulated and injection of contrast revealed a normal caliber CBD without filling defects or mass effect. CHD and intra-hepatic ducts were normal. Cystic duct takeoff was visualized and was normal. A 9mm extraction balloon was used to sweep the duct. Sludge was removed. One stone was removed. Occlusion cholangiogram was performed and was normal. Bile leak. AG PATH SPECIMEN SENT: None. SPECIMEN: None PHOTOGRAPH TAKEN: Yes. COMPLICATIONS DURING PROCEDURE: None EBL (estimated blood loss): None. IMPRESSION: 1. Plastic bile duct stent removal. 2. Bile duct sludge extraction. 3. Bile duct stone removal. RECOMMENDATIONS: 1. Watch for signs of bleeding, perforation, cholangitis and pancreatitis. 2. F/U with PCP. 3. No further recommendations at this time. CC: Primary Care/Referring Physician(s): No primary care provider on file. PERSON COMPLETING NOTE: Rajendra Reyna MD 09/27/2024 at 11:26 AM Patient meets criteria for discharge/transfer: Rajendra Reyna MD [facility] 09-27-2024 Note Written informed con sent obtained from patient. Endoscopic procedure risks (including but not limited to perforation, infection, bloating and bleeding) benefits and alternatives explained and questions answered. Patient verbalized understanding. HISTORY AND PHYSICAL: Patient's history with special attention to the cardiovascular, pulmonary systems and the current problem was reviewed with the patient prior to the procedure. Medications, allergies, and pertinent laboratory tests were also reviewed at this time. The physical examination,as below, was then performed. Vital Signs Reviewed Mouth and Pharynx : Oropharynx, clear Cardiac: regular rate and rhythm Pulmonary: Chest clear to auscultation bilaterally Neurological: normal without focal findings Abdomen: Abdomen soft, non-tender. BS normal. Patient will undergo sedation with the assistance of anesthesia physician/CLIENT HR MANAGER team. Please see corresponding note for full details. Rajendra Reyna MD 09/27/2024 9:52 AM [facility] 09-27-2024 Surgery Surgical operation note Written informed consent obtained from patient. Endoscopic procedure risks (including but not limited to perforation, infection, bloating and bleeding) benefits and alternatives explained and questions answered. Patient verbalized understanding. HISTORY & PHYSICAL: Patient's history with special attention to the cardiovascular, pulmonary systems and the current problem was reviewed with the patient prior to the procedure. Medications, allergies, and pertinent laboratory tests were also reviewed at this time. The physical examination,as below, was then performed. Vital Signs Reviewed Mouth and Pharynx : Oropharynx, clear Cardiac: regular rate and rhythm Pulmonary: Chest clear to auscultation bilaterally Neurological: normal without focal findings Abdomen: Abdomen soft, non-tender. BS normal. Patient will undergo sedation with the assistance of anesthesia physician/CLIENT HR MANAGER team. Please see corresponding note for full details. Rajendra Reyna MD 09/27/2024 9:[address] [facility] 09-21-2024 History of Present illness Narrative Patient: Valencia Brooks : 1940 PCP: Bishop Turcios MD SUBJECTIVE [...] Minerals) 600-800 MG-UNIT tablet, Take 1 tablet by mouth 1 [...] MOUTH ONCE DAILY IN THE MORNING BEFORE MEAL(S), Disp: 100 tablet, Rfl: 1 melatonin [...] Take before meals. Do not crush or chew.., Disp: 90 [...] Friends and Family: Not on file Attends Buddhism Services: Not on file Active Member of Clubs or Organizations: Not on file Attends Club or Organization Meetings: Not on file Marital Status: Living with partner Intimate Partner Violence: Not on file Housing Stability: Unknown (05/21/2024) Received from [facility] Housing Stability Vital Sign Unable to Pay [...] procedure including high reoccurence rate, infection, pain and consent given. Application of DSD post procedure. Bry Zafar DPM documented in this encounter [facility] 09-07-2024 History of Present illness Narrative Images from the original note were not included. Subjective Patient ID: Valencia Brooks is a 84 y.o. male who presents for skin infection. Valencia is present today for evaluation of skin infection. Admits he had pain in his right hand for a couple of days then that went away and then yesterday evening started swelling, redness,warmth in his right hand. He is ?ing if he could be having a side effect to muscle relaxer (Tizanidine) he has been on this for 10 days and did not take anymore since yesterday morning. He has been using ice on it and is not sure if it is helping or not. States he has been working outside. Recently caught a coon in a trap and moved it. Denies being bitten by anything. Current Outpatient Medications on File Prior to [...] time each day at the same time. diphenhydrAMINE (Sominex) 25 MG tablet Take 25 mg by mouth at bedtime Takes for sleep Docusate Sodium (DSS) 100 MG capsule Take [...] THE MORNING BEFORE MEAL(S) 100 tablet 1 melatonin 5 MG tablet Take 1 tablet by mouth 1 (one) time each day at the same time PRN Multiple Vitamin (MULTIVITAMINS PO) Take 1 tablet by mouth 1 (one) time each day. omeprazole (PriLOSEC) [address] capsule Take 1 capsule (40 mg) by mouth in the morning. Take before meals. Do not crush or chew.. 90 capsule 3 tiZANidine (Zanaflex) 4 MG tablet Take 1 tablet (4 mg) by mouth every 12 (twelve) hours if needed for muscle spasms for up to 10 days 20 tablet 0 No current facility-administered medications on file prior to visit. I have reviewed and reconciled the history and medication list with the patient today. Allergies Allergen Reactions Bee Venom Meloxicam Hives Naproxen Hives Penicillin G Hives and Unknown Penicillins Swelling Per pt his fingers swell Social History Tobacco Use Smoking status: Never Smokeless tobacco: Never Vaping Use Vaping status: Never Used Substance Use Topics Alcohol use: Not Currently Drug use: Never Family History Problem Relation Name Age of Onset Heart disease Mother Heart disease Father Past Medical History: Diagnosis Date Actinic keratosis Basal cell carcinoma GERD (gastroesophageal reflux disease) History of being hospitalized 05/04/2024 Acute Gangrenous Cholecystitis with Perforation, Anemia Hypothyroidism (CMS/HCC) Past Surgical History: Procedure Laterality Date CHOLECYSTECTOMY 05/05/[address] GUIDED CRYOABLATION RENAL RIGHT Right 05/22/2024 CT GUIDED CRYOABLATION RENAL RIGHT 05/22/2024 FOOT SURGERY Bilateral 1994 bone spur removal surgery - Dr. Cifuentes GANGLION CYST EXCISION Right 09/13/2018 wrist Visit Vitals BP 124/72 Pulse 72 Temp 99 F Resp 16 Ht 5' 8 Wt 174 lb 12.8 oz SpO2 96% BMI 26.58 kg/m Smoking Status Never BSA 1.95 m Review of Systems Constitutional: Negative for chills, fatigue and fever. Respiratory: Negative for cough, shortness of breath and wheezing. Cardiovascular: Negative for chest pain, palpitations and leg swelling. Gastrointestinal: Negative for abdominal pain, constipation, diarrhea, nausea and vomiting. Skin: Positive for rash. Objective Physical Exam Constitutional: General: He is not in acute distress. Appearance: Normal appearance. HENT: Head: Normocephalic and atraumatic. Eyes: General: No scleral icterus. Cardiovascular: Rate and Rhythm: Normal rate and regular rhythm. Heart sounds: No murmur heard. Pulmonary: Effort: Pulmonary effort is normal. No respiratory distress. Breath sounds: Normal breath sounds. No wheezing, rhonchi or rales. Musculoskeletal: Right hand: Swelling (Mild dorsum of hand) present. Decreased range of motion (At extremes). Normal sensation. Normal pulse. Comments: Dorsum of right hand erythematous, minimal increased warmth to touch Skin: General: Skin is warm and dry. Neurological: General: No focal deficit present. Mental Status: He is alert and oriented to person, place, and time. Psychiatric: Mood and Affect: Mood normal. Behavior: Behavior normal. Assessment/Plan Diagnoses and all orders for this visit: Cellulitis of right hand - doxycycline (Vibramycin) 100 MG capsule; Take 1 capsule (100 mg) by mouth in the morning and 1 capsule (100 mg) before bedtime. Do all this for 7 days. Take with at least 8 ounces (large glass) of water, do not lie down for 30 minutes after. Start above as prescribed. Reviewed potential s/e with pt including light sensitivity, be sure to cover skin if going out in the sun. Hold iron and calcium while on Doxycyline. Contact office if does not improve. Keep skin clean and dry. Follow up for Appointment As Scheduled. documented in this encounter [facility] 08-23-2024 History of Present illness Narrative Images from the original note were not included. Skin Check Location: Patient requests a skin examination from the waist up Dermatologic history: history of Actinic Keratosis, history of Basal Cell Carcinoma Last visit: Last skin check 01/03/2024, last office visit 03/28/2024 Established patient Lesions: Location: face x 8 Duration: months Quality: denies pain, denies itch, denies bleeding Modifying factors: aggravated by picking Associated symptoms: red, rough Treatments: none Location # 2: right chest Duration: months Quality: denies pain, denies itch, denies bleeding Modifying factors: none Associated symptoms: red, bump Treatments: none All pertinent medical history, medications, and allergies were reviewed. General Exam: alert, oriented to person, place, and time, normal affect, well appearing Unaccompanied A complete skin exam was offered, pt declined. Areas not examined despite medical recommendation: From the waist down Scalp, Examined , exam limited by hair Head, Face Examined Neck Examined Chest Examined Back Examined Abdomen Examined Right arm Examined Left arm Examined Hands Examined Digits,nails: Examined Lymphatics: Not examined Skin Exam 1. MELANOCYTIC NEVUS OF TRUNK Generalized Scattered benign appearing, regular brown to light brown melanocytic papules and macules with similar morphology Counseled regarding these benign growths. Rarely, a nevus can develop into malignant melanoma, so any changing nevi should be promptly re-evaluated. 2. ACTINIC KERATOSIS (8) Left Buccal Cheek, Left Parotid Area, Left Sikh (2), Left Temporal Scalp, Left Zygomatic Area, Right Parotid Area, Right Sikh Erythematous scaly papules Patient was counseled regarding these sun-induced growths that can develop into squamous cell carcinoma if left untreated. Discussed treatment with cryotherapy. It was emphasized that any treated lesions that fail to resolve should be re-evaluated. Cryotherapy performed today; see procedure note Diagnosis: Actinic keratosis Indication: Precancerous Location: see skin exam Consent: Verbal consent was obtained and risks were discussed, including, but not limited to risks of scarring, darker or silverware washer pigmentary changes, recurrence, incomplete removal and infection. [...] or tenderness Cryotherapy, skin lesion - Left Buccal Cheek, Left Parotid Area, Left Sikh (2), Left Temporal Scalp, Left Zygomatic Area, Right Parotid Area, Right Sikh 3. LENTIGINES (3) Left Arm, Neck, Right Arm Scattered martinez macules in sun-exposed areas. The patient was informed that lentigines are benign pigmented lesions that occur on sun-exposed and sun-damaged skin. No treatment is necessary. Recommended regular use of broad spectrum sunscreen SPF 30 or higher 4. HISTORY OF BASAL CELL CARCINOMA (3) Left Medial Mid Back, Left lateral back, Right Mid Back No evidence of recurrence at BCC scar. The patient was counseled that scars from excisional sites of nonmelanoma skin cancers should be monitored closely for recurrence. The patient was instructed to contact the office for any new, changing, or symptomatic moles. The patient was also instructed to contact the office for any new lesions that develop within or around the previous surgery scar. 5. NEOPLASM OF UNSPECIFIED BEHAVIOR OF BONE, SOFT TISSUE, AND SKIN Right Chest Erythematous papule with telangiectasia Lesion biopsy Type of [...] taken Amount of lidocaine used: 1.0 cc Specimen A - Dermatopathology exam Differential Diagnosis: BCC Check Margins: No Size of lesion: 0.9 x 0.7 cm 6. SEBORRHEIC KERATOSIS Generalized Stuck on verrucous, variably pigmented papules and plaques. Patient was counseled regarding these benign growths. Removal is normally not necessary, but they may be removed if they are symptomatic or for cosmetic reasons. Next Visit: pending biopsy results, 6 month skin check documented in this encounter [facility] 08-17-2024 History of Present illness Narrative Images from the original note were not included. Subjective Patient ID: Valencia Brooks is a 83 y.o. male who presents for neck pain. Valencia is present today for evaluation of neck pain, states it is sharp. Admits back of neck on the left side is painful, he gets spasms in it that comes and goes and especially when he chews or drinks water, he gets popping in his jaw when he chews. Describes pain as sharp, ache and it comes and goes. The pain has been there for a few months but over the past 2 weeks it has gotten worse. He has tried ice on it. Also hurts when he yawns or coughs. Current Outpatient Medications on File Prior to [...] time each day at the same time. diphenhydrAMINE (Sominex) 25 MG tablet Take 25 mg by mouth at bedtime Takes for sleep Docusate Sodium (DSS) 100 MG capsule Take [...] THE MORNING BEFORE MEAL(S) 100 tablet 1 melatonin 5 MG tablet Take 1 tablet by mouth 1 (one) time each day at the same time PRN Multiple Vitamin (MULTIVITAMINS PO) Take 1 tablet by mouth 1 (one) time each day. omeprazole (PriLOSEC) [address] capsule Take 1 capsule (40 mg) by mouth in the morning. Take before meals. Do not crush or chew.. 90 capsule 3 No current facility-administered medications on file prior to visit. I have reviewed and reconciled the history and medication list with the patient today. Allergies Allergen Reactions Bee Venom Meloxicam Hives Naproxen Hives Penicillin G Hives and Unknown Penicillins Swelling Per pt his fingers swell Social History Tobacco Use Smoking status: Never Smokeless tobacco: Never Vaping Use Vaping status: Never Used Substance Use Topics Alcohol use: Not Currently Drug use: Never Family History Problem Relation Name Age of Onset Heart disease Mother Heart disease Father Past Medical History: Diagnosis Date Actinic keratosis Basal cell carcinoma GERD (gastroesophageal reflux disease) History of being hospitalized 05/04/2024 Acute Gangrenous Cholecystitis with Perforation, Anemia Hypothyroidism (CMS/HCC) Past Surgical History: Procedure Laterality Date CHOLECYSTECTOMY 05/05/[address] GUIDED CRYOABLATION RENAL RIGHT Right 05/22/2024 CT GUIDED CRYOABLATION RENAL RIGHT 05/22/2024 FOOT SURGERY Bilateral 1994 bone spur removal surgery - Dr. Cifuentes GANGLION CYST EXCISION Right 09/13/2018 wrist Visit Vitals BP 102/62 Pulse 75 Resp 16 Ht 5' 8 Wt 173 lb 6.4 oz SpO2 96% BMI 26.37 kg/m Smoking Status Never BSA 1.94 m Review of Systems Constitutional: Negative for chills, fatigue and fever. Respiratory: Negative for cough, shortness of breath and wheezing. Cardiovascular: Negative for chest pain, palpitations and leg swelling. Gastrointestinal: Negative for abdominal pain, constipation, diarrhea, nausea and vomiting. Musculoskeletal: Positive for neck pain. Skin: Negative for rash. Objective Physical Exam Constitutional: General: He is not in acute distress. Appearance: Normal appearance. HENT: Head: Normocephalic and atraumatic. Mouth/Throat: Comments: Left TMJ tender to touch, pop palpable with ROM of jaw over the left TMJ. Tender along Masseter muscle on left also Eyes: General: No scleral icterus. Neck: Comments: Tender with mild spasm in area noted in drawing. Cardiovascular: Rate and Rhythm: Normal rate and regular rhythm. Heart sounds: No murmur heard. Pulmonary: Effort: Pulmonary effort is normal. No respiratory distress. Breath sounds: Normal breath sounds. No wheezing, rhonchi or rales. Musculoskeletal: General: No swelling. Cervical back: Pain with movement and muscular tenderness present. Normal range of motion. Skin: General: Skin is warm and dry. Neurological: General: No focal deficit present. Mental Status: He is alert and oriented to person, place, and time. Psychiatric: Mood and Affect: Mood normal. Behavior: Behavior normal. Assessment/Plan Diagnoses and all orders for this visit: Arthralgia of left temporomandibular joint Will have patient start gentle heat to area prn. Stick to a soft diet for at least the next week to rest the joint as much as possible. He cannot tolerate anti-inflammatory medication. He can try a mouthguard at night. Tizanidine as prescribed. If no improvement with the above, consider referral to PT, or possibly having pt see his dentist for evaluation. Contact office if symptoms do not improve over the next few days. Neck muscle spasm - tiZANidine (Zanaflex) 4 MG tablet; Take 1 tablet (4 mg) by mouth every 12 (twelve) hours if needed for muscle spasms for up to 10 days Start Tizanidine as prescribed. Cautioned it may cause drowsiness. Do not drive after taking. Follow up for Appointment As Scheduled. documented in this encounter [facility] 08-17-2024 History of Present illness Narrative Patient: Valencia Brooks : 1940 PCP: Bishop Turcios MD SUBJECTIVE Patient presents today for follow up of skin lesion/neoplasm of unknown origin to the left foot Pt states that previous treatment of acid tx with some improvement Pt rates pain the pain on a 1-10 scale an intensity of 3 Pt presents today for followup. Allergies: Allergies [...] Minerals) 600-800 MG-UNIT tablet, Take 1 tablet by mouth 1 [...] mouth Daily as needed., Disp: , Rfl: ferrous sulfate 325 (65 Fe) MG tablet, Take 1 tablet by mouth 1 (one) time each day at the same time., Disp: , Rfl: latanoprost (Xalatan) 0.005 % ophthalmic solution, Administer 1 drop into both eyes in the morning., Disp: , Rfl: levothyroxine (Synthroid, Levoxyl) 137 MCG tablet, TAKE 1 TABLET BY MOUTH ONCE DAILY IN THE MORNING BEFORE MEAL(S), Disp: 100 tablet, Rfl: 1 melatonin [...] Take before meals. Do not crush or chew.., Disp: 90 capsule, Rfl: 3 Social History: Social History Socioeconomic History Marital status: Spouse name: Not on file Number of children: Not on file Years of education: Not on file Highest education level: Not on file Occupational History Not on file Tobacco Use Smoking status: Never Smokeless tobacco: Never Vaping Use Vaping status: Unknown Substance and Sexual Activity Alcohol use: Not [...] Friends and Family: Not on file Attends Buddhism Services: Not on file Active Member of Clubs or Organizations: Not on file Attends Club or Organization Meetings: Not on file Marital Status: Living with partner Intimate Partner Violence: Not on file Housing Stability: Unknown (05/21/2024) Received from [facility] Housing Stability Vital Sign Unable to Pay [...] at the left sub 2nd metatarsal measuring 0.2 cm x 0.1 cm. VASC: Palpable pedal pulsed b/l with [...] procedure including high reoccurence rate, infection, pain and consent given. Application of DSD post procedure. Bry Zafar DPM documented in this encounter [facility] 08-03-2024 History of Present illness Narrative Patient: Valencia Brooks : 1940 PCP: Bishop Turcios MD SUBJECTIVE This is a 83 y.o. male that presents today for a chief complaint of longstanding left foot lesion that is been present for the past few years and has tried [id number] treatments negative improvement rates pain up to 11/02. Allergies: Allergies Allergen Reactions Bee Venom Meloxicam Hives Naproxen Hives Penicillin G Hives and Unknown Penicillins Swelling Per pt his fingers swell Past Medical History: Past Medical History: Diagnosis Date Actinic keratosis Basal cell carcinoma GERD (gastroesophageal reflux disease) History of being hospitalized 05/04/2024 Acute Gangrenous Cholecystitis with Perforation, Anemia Hypothyroidism ([facility]) Medications: Current Outpatient Medications: aspirin 81 MG EC tablet, Take 1 tablet by mouth 1 (one) time each day at the same time., Disp: , Rfl: Calcium Carbonate-Vit D-Min (Calcium 600+D3 Plus Minerals) 600-800 MG-UNIT tablet, Take 1 tablet by mouth 1 [...] mouth Daily as needed., Disp: , Rfl: ferrous sulfate 325 (65 Fe) MG tablet, Take 1 tablet by mouth 1 (one) time each day at the same time., Disp: , Rfl: latanoprost (Xalatan) 0.005 % ophthalmic solution, Administer 1 drop into both eyes in the morning., Disp: , Rfl: levothyroxine (Synthroid, Levoxyl) 137 MCG tablet, TAKE 1 TABLET BY MOUTH ONCE DAILY IN THE MORNING BEFORE MEAL(S), Disp: 100 tablet, Rfl: 1 melatonin [...] Take before meals. Do not crush or chew.., Disp: 90 capsule, Rfl: 3 Social History: Social History Socioeconomic History Marital status: Spouse name: Not on file Number of children: Not on file Years of education: Not on file Highest education level: Not on file Occupational History Not on file Tobacco Use Smoking status: Never Smokeless tobacco: Never Vaping Use Vaping status: Unknown Substance and Sexual Activity Alcohol use: Not [...] Friends and Family: Not on file Attends Buddhism Services: Not on file Active Member of Clubs or Organizations: Not on file Attends Club or Organization Meetings: Not on file Marital Status: Living with partner Intimate Partner Violence: Not on file Housing Stability: Unknown (05/21/2024) Received from [facility] Housing Stability Vital Sign Unable to Pay [...] at the left sub 2nd metatarsal measuring 0.2 cm x 0.2 cm. VASC: Palpable pedal pulsed b/l with warm to cool tibia to toes b/l NEURO: Gross sensation intact digits 1-10 and b/l feet ORTHO: +5/5 DF/PF/IN/EV right, +5/5 DF/PF/IN/EV left. 20 degrees inversion and 10 degrees eversion STJ b/l. Ankle ROM less than 10 degrees b/l. Positive pain on palpation to left foot lesion XRAY: US: ASSESSMENT 1. Neoplasm of uncertain behavior of skin 2. Verruca plantaris 3. Foot pain, left PLAN Discussed condition in detail with patient today and discussed conservative treatments and possible excisional biopsy of lesion in the future for pathological diagnosis of specimen. Patient may take [id number] NSAID p.r.n. for pain Application of salinocaine acid medication to lesion/lesions located at left foot Informed pt of risks and benefits of procedure including high reoccurence rate, infection, pain and consent given. Application of DSD post procedure. Bry Zafar DPM documented in this encounter [facility] 07-26-2024 Note Written informed con sent obtained from patient. Endoscopic procedure risks (including but not limited to perforation, infection, bloating and bleeding) benefits and alternatives explained and questions answered. Patient verbalized understanding. HISTORY AND PHYSICAL: Patient's history with special attention to the cardiovascular, pulmonary systems and the current problem was reviewed with the patient prior to the procedure. Medications, allergies, and pertinent laboratory tests were also reviewed at this time. The physical examination,as below, was then performed. Vital Signs Reviewed Mouth and Pharynx : Oropharynx, clear Cardiac: regular rate and rhythm Pulmonary: Chest clear to auscultation bilaterally Neurological: normal without focal findings Abdomen: Abdomen soft, non-tender. BS normal. Patient will undergo sedation with the assistance of anesthesia physician/CLIENT HR MANAGER team. Please see corresponding note for full details. Rajendra Reyna MD 07/26/2024 8:37 AM [facility] 06-20-2024 Note Oncology Progress No te Chief Complaint New pt here for anemia pt not sure why he was sent to [facility] he lives [place] [address]. History of Present Illness Valencia is a 83-year-old nice gentleman with history of hypothyroidism, skin cancer, and GERD who had his last colonoscopy about 2019 at [facility] without any abnormalities found and no prior history of malignancies and was taking aspirin 81 mg daily and recently underwent cholecystectomy on 06/05/2024 for pericholecystic fluid and abdominal pain and bloating that been going on for few weeks. The patient developed the pericholecystic abscess after his cholecystectomy therefore he underwent drain placed and currently has the drain draining black fluid. Patient denied any fevers. In his labs from April 2024 he was found to have hemoglobin of 8-9 and a platelet count of 120-1 30 range with a slightly elevated WBC is likely from his cholecystitis. His MCV has been low in the 70-76 and RDW slightly elevated 17-18. Rest of the labs were unremarkable. No iron studies or B12 or folate were done. He currently takes ferrous sulfate 65 mg daily 4 days a week and B12 500 mcg orally daily. 14 point system are reviewed and are in otherwise negative. Review of Systems General: Patient denied fevers or headaches or dizziness. Lymphatic: No enlarged lymphadenopathy. Cardiovascular: Patient denied CP, SOB or leg edema. Respiratory: no cough or SOB or hemoptysis. GI: No nausea or vomiting or diarrhea or constipation or rectal bleeding or emesis or melena. : no gross hematuria or dysuria or frequency currently. Extremities: No edema of the lower extremities. Hematological: No focal masses anywhere and no easy bruising or bleeding tendency. Musculoskeletal: No deformities of the joints or the spine. Neurological: no vision changes or weakness or sensory changes. Physical Exam ECOG PS 1. General: alert, no acute distress HENMT: Normocephalic, atraumatic. Neck: supple and no LAP or thyromegaly. Cardiovascular: regular rate and rhythm, No murmurs Respiratory: Lungs CTA, respirations non labored. Abdomen: Soft nontender nondistended without hepatosplenomegaly or masses clinically. Extremities: no deformity, no edema. Lymph system: Currently she has no lymphadenopathy in her cervical area subclavian area/axillary areas and inguinal areas bilaterally. Neurological: oriented x 4, LOC appropriate for age, CN II-XII intact, motor strength equal & normal bilaterally, sensation normal bilaterally, speech normal Skin: No rash. Psychiatric: Normal mood and interaction. Diagnoses 1. Microcytic anemia (D50.9: Iron deficiency anemia, unspecified) With hemoglobin ranging from 8-9 and a platelet count of 120-130,000 on with MCV in the 70s and elevated RDW no clear etiology. His last colonoscopy was at [facility] about 2019. No biopsies were done and no prior history of malignancies. Never had an EGD. No gross hematuria or bright red blood per rectum or melena to history knowledge. He is taking ferrous sulfate 65 mg daily 4 days a week and B12 100 mcg or 500 mcg daily. 2. Chronic GERD (K21.9: Gastro-esophageal reflux disease without esophagitis) Plan: Obtain labs today including CBC with differential, CMP, LDH, iron studies B12 folate and copper level. Will determine if he needs IV iron infusion or B12 injections or higher dose of oral iron and B12 based on the results. Urinalysis with micro to look for microscopic hematuria. FOBT. Return to the clinic in the future based on the results of the above testing and the plan of care from her blood work from today. Follow-up No qualifying data available Medications aspirin 81 mg oral capsule, 81 mg= [...] PRN Vitamin B12, 500 mcg, Oral, Daily Vital Signs and Measurements Vital Signs and Measurements This Visit - Last 24 Hours T: 36.7 ???C (Oral) HR: 77 (Peripheral) RR: 16 BP: 120/67 SpO2: 96% HT: 175.0 cm HT: 175.0 cm WT: 77.7 kg WT: 77.7 kg (Dosing) BMI: 25.37 BSA: 1.94 Staging Information No information available Problem List/Past Medical History Ongoing Acquired hypothyroidism Basal cell carcinoma of truncal skin Cervical spondylosis without myelopathy Chronic GERD Chronic insomnia Lentiginosis Lipoprotein deficiency disorder Microcytic anemia Seborrheic keratosis Historical No qualifying data Procedure/Surgical History Cholecystectomy (05/05/2024). Allergies naproxen (Swelling) penicillin (Rash, Unknown) Social History Tobacco Never (less than 100 in lifetime) Tobacco Use:. Never Smokeless To (more content not included)... [facility] 06-14-2024 History of Present illness Narrative Images from the original note were not included. HPI Follow-up Additional comments: [facility] 05/21/24-05/23/24 dx: intraabd. Abscess after lap kyleigh [facility] ER 05/26/24 dx: post op abscess advised to continue augmentin Pt has already had follow up with surgeon since discharge and has another appt next week Pt still has drain in place Last edited by Mandi Alamo LPN on 06/14/2024 11:22 AM. Subjective Patient ID: Valencia Brooks is a 83 y.o. male who presents for Follow-up ([facility] 05/21/24-05/23/24 dx: intraabd. Abscess after lap kyleigh [facility] ER 05/26/24 dx: post op abscess advised to continue augmentin/Pt has already had follow up with surgeon since discharge and has another appt next week/Pt still has drain in place). Flowsheet Row Patient Outreach from 05/31/2024 in [facility] with Ro Silva RN Hospital Information ED, Hospital or Custodial Facility Discharge? ED Patient has been contacted within 1 week of being seen in the ED No Have two attempts been made to contact the patient within one week of being seen in the ED? Yes [05/31 and 2/7] Diagnosis postoperative abscess Discharge Date 05/26/24 Discharge Hospital [facility] Engagement Admission Date 05/26/24 Medications Discharge medications reviewed and reconciled from hospital? Not applicable Appointments Does the patient have a primary care provider? Yes Does the patient have any upcoming specialty appointments? Yes Self Management Patient Teaching Wrap Up Wrap Up Additional Comments Pt presented to ER had laparoscopic cholecystectomy at [facility] on 05/05. Abscess discovered on 05/21 at [facility]. Concern that inisional area with purulent drainage, has drain, draining 20-30 cc/day. On antibiotics. Follow up with [facility] at [facility] in 4 days. Test: labs, CT. Drain flushed and working. Discharged home Pt states he is feeling much better all abx finished States he has been eating well and denies pain Current Outpatient Medications on File Prior to [...] THE MORNING BEFORE MEAL(S) 100 tablet 1 melatonin 5 MG tablet Take 1 tablet [...] Penicillins Swelling Per pt his fingers swell Social History Tobacco Use Smoking status: Never [...] Gangrenous Cholecystitis with Perforation, Anemia Hypothyroidism (CMS/HCC) Past Surgical History: Procedure Laterality Date CHOLECYSTECTOMY 05/05/[address] GUIDED CRYOABLATION RENAL RIGHT Right 05/22/2024 CT GUIDED CRYOABLATION RENAL RIGHT 05/22/2024 FOOT SURGERY Bilateral 1994 bone spur removal surgery - Dr. Cifuentes GANGLION CYST EXCISION Right 09/13/2018 wrist Visit Vitals BP 124/66 Pulse 64 Temp 98.7 F Ht 5' 8 Wt 169 lb SpO2 97% BMI 25.70 kg/m Smoking Status Never BSA 1.92 m Review of Systems Objective Physical Exam Constitutional: General: He is not in acute distress. Appearance: Normal appearance. HENT: Head: Normocephalic and atraumatic. Eyes: General: No scleral icterus. Cardiovascular: Rate and Rhythm: Normal rate and regular rhythm. Heart sounds: No murmur heard. Pulmonary: Effort: Pulmonary effort is normal. No respiratory distress. Breath sounds: Normal breath sounds. No wheezing, rhonchi or rales. Abdominal: Comments: Surgical drain in place, billious discharge Musculoskeletal: General: No swelling. Skin: General: Skin is warm and dry. Findings: Wound present. Comments: Surgical incisions are healing well on abdomen. Neurological: General: No focal deficit present. Mental Status: He is alert and oriented to person, place, and time. Psychiatric: Mood and Affect: Mood normal. Behavior: Behavior normal. Telephone on 06/05/2024 Component Date Value Ref Range Status IRON, TOTAL 06/06/2024 104 50 - 180 mcg/dL Final IRON BINDING CAPACITY 06/06/2024 273 250 - 425 mcg/dL (calc) Final % SATURATION 06/06/2024 38 20 - 48 % (calc) Final FERRITIN 06/06/2024 265 24 - 380 ng/mL Final RETICULOCYTE COUNT, AUTOMATED 06/06/2024 1.7 % Final RETICULOCYTE, ABSOLUTE 06/06/2024 71,060 25,000 - 90,000 cells/uL Final Clinisync Result Encounter on 05/26/2024 Component Date Value Ref Range Status AEROBIC CULTURE 05/26/2024 Final Value: Aerobic Culture AEROBIC CULTURE 05/26/2024 No growth after 18-24 hours. Final AEROBIC CULTURE 05/26/2024 Growth observed. Further testing to rule out possible pathogen(s) Final AEROBIC CULTURE 05/26/2024 is in progress. Final AEROBIC CULTURE 05/26/2024 Organism: Staphylococcus epidermidis : Final AEROBIC CULTURE 05/26/2024 *ABNORMAL* Final AEROBIC CULTURE 05/26/2024 Based on resistance to oxacillin this isolate would be Final AEROBIC CULTURE 05/26/2024 resistant to all currently available beta-lactam Final AEROBIC CULTURE 05/26/2024 antimicrobial agents, with the exception of the newer Final AEROBIC CULTURE 05/26/2024 cephalosporins with anti-MRSA activity, such as Final AEROBIC CULTURE 05/26/2024 Ceftaroline Final AEROBIC CULTURE 05/26/2024 Recovered from broth only. Final AEROBIC CULTURE 05/26/2024 Staphylococcus epidermidis Final AEROBIC CULTURE 05/26/2024 Final Value: O:STAEPI Isolated AEROBIC CULTURE 05/26/2024 Performed at: - [facility] Final AEROBIC CULTURE 05/26/[address] [place] [id number] Final AEROBIC CULTURE 05/26/2024 Exercise Teacher: Jesse Yap PhD, Phone: [phone] Final AEROBIC CULTURE 05/26/2024 Final Value: Organism: 2.1 Antibiotic Interpretation LAMAR Status AEROBIC CULTURE 05/26/2024 (R) Final Value: Ciprofloxacin Ciprofloxacin R F AEROBIC CULTURE 05/26/2024 (R) Final Value: Erythromycin Erythromycin R F AEROBIC CULTURE 05/26/2024 (S) Final Value: Gentamicin Gentamicin S F AEROBIC CULTURE 05/26/2024 (R) Final Value: Levofloxacin Levofloxacin R F AEROBIC CULTURE 05/26/2024 (S) Final Value: Linezolid Linezolid S F AEROBIC CULTURE 05/26/2024 (R) Final Value: Moxifloxacin Moxifloxacin R F AEROBIC CULTURE 05/26/2024 (R) Final Value: Oxacillin Oxacillin R F AEROBIC CULTURE 05/26/2024 (R) Final Value: Penicillin Penicillin R F AEROBIC CULTURE 05/26/2024 (S) Final Value: Rifampin Rifampin S F AEROBIC CULTURE 05/26/2024 (S) Final Value: Tetracycline Tetracycline S F AEROBIC CULTURE 05/26/2024 (R) Final Value: Trimethoprim/Sulfamethoxazole Trimethoprim/Sulfamethoxazole R F AEROBIC CULTURE 05/26/2024 (S) Final Value: Vancomycin Vancomycin S F AEROBIC CULTURE 05/26/2024 (R) Final Value: Clindamycin Clindamycin R F ANAEROBIC CULTURE 05/26/2024 Final Value: Anaerobic Culture ANAEROBIC CULTURE 05/26/2024 Specimen has been received and testing has been initiated. Final ANAEROBIC CULTURE 05/26/2024 No anaerobic growth in 72 hours. Final Clinisync Result Encounter on 05/21/2024 Component Date Value Ref Range Status AERIDSUS1 05/21/2024 Final Value: Aerobe ID + Suscept WILL FOLLOW AERIDSUS1 05/21/2024 *ABNORMAL* Final AERIDSUS1 05/21/2024 Gram variable rods Final AERIDSUS1 05/21/2024 *ABNORMAL* Final AERIDSUS1 05/21/2024 Received anaerobic bottle only. Final AERIDSUS1 05/21/2024 Organism: Clostridium perfringens : Final AERIDSUS1 05/21/2024 *ABNORMAL* Final AERIDSUS1 05/21/2024 Received anaerobic bottle only. Final AERIDSUS1 05/21/2024 Studies at [facility] have confirmed the observations Final AERIDSUS1 05/21/2024 of others who have demonstrated the Clostridium species Final AERIDSUS1 05/21/2024 other than Clostridium clostridioforme are routinely susceptible Final AERIDSUS1 05/21/2024 to cefoxitin, chloramphenicol, clindamycin, metronidazole, and Final AERIDSUS1 05/21/2024 penicillin. Clostridium clostridiforme is usually resistant to Final AERIDSUS1 05/21/2024 clindamycin and penicillin. Final AERIDSUS1 05/21/2024 Clostridium perfringens Final AERIDSUS1 05/21/2024 Final Value: O:CLOPER Isolated ANAID1 05/21/2024 Final Value: Anaerobe Identification Only ANAID1 05/21/2024 Specimen has been received and testing has been initiated. Final ANAID1 05/21/2024 Clostridium perfringens Final ANAID1 05/21/2024 Final Value: O:CLOPER Isolated ANAID1 05/21/2024 Performed at: [facility] Final ANAID1 05/21/2024 [address] [place], [place] [id number] Final ANAID1 05/21/2024 Exercise Teacher: Jesse Yap PhD, Phone: [phone] Final AERIDSUS1 05/21/2024 Final Value: Aerobe ID + Suscept WILL FOLLOW AERIDSUS1 05/21/2024 *ABNORMAL* Final AERIDSUS1 05/21/2024 Gram positive rods Final AERIDSUS1 05/21/2024 *ABNORMAL* Final AERIDSUS1 05/21/2024 Received anaerobic bottle only. Final AERIDSUS1 05/21/2024 Organism: Clostridium perfringens : Final AERIDSUS1 05/21/2024 *ABNORMAL* Final AERIDSUS1 05/21/2024 Received anaerobic bottle only. Final AERIDSUS1 05/21/2024 Studies at [facility] have confirmed the observations Final AERIDSUS1 05/21/2024 of others who have demonstrated the Clostridium species Final AERIDSUS1 05/21/2024 other than Clostridium clostridioforme are routinely susceptible Final AERIDSUS1 05/21/2024 to cefoxitin, chloramphenicol, clindamycin, metronidazole, and Final AERIDSUS1 05/21/2024 penicillin. Clostridium clostridiforme is usually resistant to Final AERIDSUS1 05/21/2024 clindamycin and penicillin. Final AERIDSUS1 05/21/2024 Clostridium perfringens Final AERIDSUS1 05/21/2024 Final Value: O:CLOPER Isolated ANAID1 05/21/2024 Final Value: Anaerobe Identification Only ANAID1 05/21/2024 Specimen has been received and testing has been initiated. Final ANAID1 05/21/2024 Clostridium perfringens Final ANAID1 05/21/2024 Final Value: O:CLOPER Isolated ANAID1 05/21/2024 Performed at: [facility] Final ANAID1 05/21/2024 [address] [place], [place] [id number] Final ANAID1 05/21/2024 Exercise Teacher: Jesse Yap PhD, Phone: [phone] Final Office Visit on 05/18/2024 Component Date Value Ref Range Status WHITE BLOOD CELL COUNT 06/01/2024 6.7 3.8 - 10.8 Thousand/uL Final RED BLOOD CELL COUNT 06/01/2024 3.66 (L) 4.20 - 5.80 Million/uL Final HEMOGLOBIN 06/01/2024 8.3 (L) 13.2 - 17.1 g/dL Final HEMATOCRIT 06/01/2024 28.8 (L) 38.5 - 50.0 % Final MCV 06/01/2024 78.7 (L) 80.0 - 100.0 fL Final MCH 06/01/2024 22.7 (L) 27.0 - 33.0 pg Final MCHC 06/01/2024 28.8 (L) 32.0 - 36.0 g/dL Final Comment: For adults, a slight decrease in the calculated MCHC value (in the range of 30 to 32 g/dL) is most likely not clinically significant; however, it should be interpreted with caution in correlation with other red cell parameters and the patient's clinical condition. RDW 06/01/2024 17.6 (H) 11.0 - 15.0 % Final PLATELET COUNT 06/01/2024 258 140 - 400 Thousand/uL Final MPV 06/01/2024 11.4 7.5 - 12.5 fL Final Assessment/Plan Diagnoses and all orders for this visit: Postprocedural intraabdominal abscess (CMS/HCC) - The patient was seen today in follow up of recent hospital stay. All available hospital records were reviewed and discussed with the patient. Hospital discharge meds were reviewed. Any changes are as noted. S/P cholecystectomy Microcytic anemia - Slowly improving after recent setback. Recheck labs at next appt. - This office visit was spent in consultation regarding the patient's current medical problems, differential diagnoses, testing/imaging results, and treatment options. Greater than 25 minutes was spent in [id number] consultation and coordination of care. No follow-ups on file. documented in this encounter [facility] 06-12-2024 Hospital Discharge instructions Follow Up Care 06/12/2024 14:12:38 With:Hubert LEONARD, Li Evans, MED, ONC Address: When: Unknown Comments:Labs and UA with micro today.FOBT.Future follow up based on the current results. [facility] 06-08-2024 Note EXAMINATION: CT ABSC ESS DRAINAGE (ARIEL) 05/22/2024 11:05 AM CLINICAL HISTORY: Rad Procedure required: = perc drain for intrabdominal abscess,Intrabdominal abscess s/p lap kyleigh on 05/04 @ [facility] DIAGNOSIS: ORDERING PROVIDER: CARLOS BAÑUELOS NOTE: Sedation start time: 1037 Sedation end time: 1048 Total versed given: 1mg Total fentanyl given: 100mcg ATTENDING PHYSICIAN: Thuan Burgos RESIDENT/FELLOW PHYSICIAN: Thuan Burgos INTRA-PROCEDURE MEDS: SEDATION TIME: Start time: 1037 Stop time: 1048 INFORMED CONSENT: Written informed consent was obtained. The procedure, risks, benefits, and alternatives were discussed. All questions were answered. TIMEOUT: Physician led timeout was conducted documenting correct patient, procedure, site, fire risk, antibiotics and allergies. COMPLICATIONS: None ESTIMATED BLOOD LOSS: Less than 10 mL TECHNIQUE: After the risks, benefits, and alternatives were explained to the patient, informed consent was obtained and a timeout was performed. The patient was positioned supine on the CT table for imaging guidance. Axial CT images were obtained through the area of interest and the patient's skin was marked. The patient's skin was then prepped and draped in the usual sterile fashion. Under CT guidance, a 5 [place] Yueh catheter was advanced into the gallbladder fossa collection via a subcostal approach. A 0.035 Amplatz wire was advanced through the catheter, with subsequent removal of the catheter and serial dilatations over the wire. A 10 [place] drainage catheter was then advanced over the wire into the fluid collection. Approximately 10 cc of purulent fluid was aspirated. The drainage catheter was then secured to the skin. The site was dressed in the usual aseptic fashion. The patient tolerated the procedure well without immediate complication. FINDINGS: Initial images identify the fluid collection within the gallbladder fossa. . Images made during the procedure demonstrate guide needle position within the collection. Post procedure images fail to show complication. IMPRESSION: Technically successful placement of a 10 [place] pigtail catheter. MACRO: None [facility] 06-08-2024 Note EXAMINATION: CT ABSC ESS DRAINAGE (ARIEL) 05/22/2024 11:05 AM CLINICAL HISTORY: Rad Procedure required: = perc drain for intrabdominal abscess,Intrabdominal abscess s/p lap kyleigh on 05/04 @ [facility] DIAGNOSIS: ORDERING PROVIDER: CARLOS BAÑUELOS NOTE: Sedation start time: 1037 Sedation end time: 1048 Total versed given: 1mg Total fentanyl given: 100mcg ATTENDING PHYSICIAN: Thuan Burgos RESIDENT/FELLOW PHYSICIAN: Thuan Burgos INTRA-PROCEDURE MEDS: SEDATION TIME: Start time: 1037 Stop time: 1048 INFORMED CONSENT: Written informed consent was obtained. The procedure, risks, benefits, and alternatives were discussed. All questions were answered. TIMEOUT: Physician led timeout was conducted documenting correct patient, procedure, site, fire risk, antibiotics and allergies. COMPLICATIONS: None ESTIMATED BLOOD LOSS: Less than 10 mL TECHNIQUE: After the risks, benefits, and alternatives were explained to the patient, informed consent was obtained and a timeout was performed. The patient was positioned supine on the CT table for imaging guidance. Axial CT images were obtained through the area of interest and the patient's skin was marked. The patient's skin was then prepped and draped in the usual sterile fashion. Under CT guidance, a 5 [place] Yueh catheter was advanced into the gallbladder fossa collection via a subcostal approach. A 0.035 Amplatz wire was advanced through the catheter, with subsequent removal of the catheter and serial dilatations over the wire. A 10 [place] drainage catheter was then advanced over the wire into the fluid collection. Approximately 10 cc of purulent fluid was aspirated. The drainage catheter was then secured to the skin. The site was dressed in the usual aseptic fashion. The patient tolerated the procedure well without immediate complication. FINDINGS: Initial images identify the fluid collection within the gallbladder fossa. . Images made during the procedure demonstrate guide needle position within the collection. Post procedure images fail to show complication. IMPRESSION: Technically successful placement of a 10 [place] pigtail catheter. MACRO: None RADIOLOGY 05-31-2024 Note Transitional Care Ton houarias note: May 31, 2024 TCM appointment scheduled for: 05/31/2024 Patient attended appointment: Yes If no, attempted to call and reschedule appointment: NA Patient contacted: DEJON TCM appointment rescheduled: DEJON Graham MSN, stapler coil unit Patient Hasher Operator [facility] Department Number: [phone], option 3 [facility] 05-31-2024 History of Present illness Narrative Transitional Care Management note: May 31, 2024 TCM appointment scheduled for: 05/31/2024 Patient attended appointment: Yes If no, attempted to call and reschedule appointment: NA Patient contacted: NA TCM appointment rescheduled: NA Cristina MEADOWS, stapler coil unit Patient Hasher Operator [facility] Department Number: [phone], option 3 documented in this encounter [facility] 05-31-2024 History of Present illness Narrative Images from the original note were not included. TRANSITIONAL CARE MANAGEMENT PROGRESS NOTE Patient Name: Valencia Brooks MRN / CSN: [id number] / [id number] Date of / Age: 5 1940 - 83 year old Encounter Date/Time: 05/31/2024 .Contacted patient at 1015, he states he is in a doctor's office right now and can't talk. He requests a call back in about 1 hour. CARE TEAM Encounter Provider: DISCHARGE MANAGEMENT FOLLOW UP Recent Hospital Discharge Facility: [facility] PCP (if known): No primary care provider on file. Valencia Brooks is a 83 year old male presenting today for follow-up after being discharged from the hospital 9 days ago. The main problem requiring admission was Postprocedural intraabdominal abscess . The discharge summary and/or Transitional Care Management documentation was reviewed. Medication reconciliation was performed as indicated via the Hong as Reviewed timestamp. Valencia Brooks was contacted by Transitional Care Management services two days after his discharge. This encounter and supporting documentation was reviewed. The complexity of medical decision making for this patient's transitional care is Moderate. Documentation: Mode: Telephone Patient Patient Work Phone: Patient Cell Phone: Preferred phone: [phone] Consent: I confirmed patient understanding of the risks and benefits of telehealth visits and obtained consent to proceed with the telehealth visit. Location of Patient: Home of patient ALLERGIES AND ADVERSE DRUG REACTIONS Penicillins SUBJECTIVE Valencia Brooks is a 83 year old old male patient. HISTORY OF PRESENT ILLNESS He is doing well. He had an appointment with his doctor today to check on his drain. Everything seems to be going well. He is eating and drinking well. He is having a lot of gas. He will be starting cipro today as prescribed by the doctor today to help with his abscess. REASON FOR HOSPITALIZATION: Valencia Brooks is a 83 year old male with a H hypothyroidism, osteoarthritis, GERD, lipoprotein deficiency disorder, basal cell carcinoma. He was recently admitted at [facility] and underwent lap subtotal colectomy by Dr. Hinton. A drain was left in place and patient was discharged. He was seen in [facility] on Wednesday05/17/2024 where minimal drain output was noted and drain was discontinued. He then presented to [facility] ED on Wednesday05/21/2024 with complaints of syncope and abdominal pain. He was seen at [facility] where imaging was completed and was found to have intra- abdominal abscess in the gallbladder fossa. Admitted to the [facility] under the EGS service for IV abx and IR consult for abscess drain placement. SIGNIFICANT FINDINGS: Intra-abdominal abscess s/p IR drain placement HOSPITAL COURSE: 05/21/2024: Presented as transfer from OSH after being found to have intra-abdominal abscess in gallbladder fossa. Admitted under the EGS service for IV abx and IR consult for drain placement. 05/22/2024: To IR for drain placement. Cultures sent. 05/23/2024: Patient is tolerating a regular diet without nausea or vomiting. He is passing flatus. He is voiding spontaneously, without difficulty. His pain is controlled on PO regimen. He has undergone drain teaching and is able to manage drain at time, as well as has assistance for drain management. He is medically cleared for discharge home today. Past Medical, Surgical, Social, and Family history, reviewed and updated as needed. CURRENT MEDICATIONS Current Outpatient Medications Medication Sig Dispense Refill acetaminophen (TYLENOL) 325 mg tablet Take 2 Tablets by mouth every 6 (six) hours. 30 Tablet 0 sodium chloride (BD PosiFlush) 0.9 % SOLN flush syringe 10 mL by Intracatheter route 3 times daily (with meals). 1000 mL 0 levothyroxine (SYNTHROID) 137 MCG tablet Take 137 mcg by mouth daily. melatonin 5 mg TABS tablet Take 5 mg by mouth at bedtime as needed for Other (sleep). ferrous sulfate 325 mg (65 mg elemental) tablet Take 1 Tablet by mouth daily. omeprazole (PRILOSEC) 40 MG capsule Take 40 mg by mouth daily. Calcium Carbonate-Vit D-Min (Calcium 600+D3 Plus Minerals) 600-800 MG-UNIT TABS Take 1 Tablet by mouth daily. aspirin (Aspirin 81) 81 MG chewable tablet Take 81 mg by mouth daily. vitamin B-12 (CYANOCOBALAMIN) 500 MCG tablet Take 500 mcg by mouth daily. CALCIUM CITRATE ORAL Take 600 mg by mouth 2 times a day. No current facility-administered medications for this visit. OBJECTIVE Review of Systems Gastrointestinal: + flatus All other systems reviewed and are negative. ASSESSMENT & PLAN Valencia Brooks is a 83 year old old male patient. His next appointment on 06/[address] scan in [place]. His PCP follow up is the week following. Assessment & Plan Results Review Labs [facility] [employer] ATTESTATION Please confirm you have completed the attestation actions Listed below: Yes: Reviewed discharge summary Reconciled medications Followed-up with pending tests and labs Provided necessary patient and family education Access to Care No additional resources required at this time Moderate Complexity of Medical Decision Making Questions: All questions answered, no further needs identified at this time. Future Appointments (next 10) Provider Department Center 05/31/2024 10:00 AM DISCHARGE MANAGEMENT FOLLOW UP [facility] Virtual On Demand Care Arrive at: Patient's Home Pt.Access/CM documented in this encounter [facility] 05-31-2024 Note TRANSITIONAL CARE TON MCCALL PROGRESS NOTE Patient Name: Valencia Brooks MRN / CSN: [id number] / [id number] Date of / Age: 5 1940 - 83 year old Encounter Date/Time: 05/31/2024 .Contacted patient at 1015, he states he is in a doctor's office right now and can't talk. He requests a call back in about 1 hour. CARE TEAM Encounter Provider: DISCHARGE MANAGEMENT FOLLOW UP Recent Hospital Discharge Facility: [facility] PCP (if known): No primary care provider on file. Valencia Brooks is a 83 year old male presenting today for follow-up after being discharged from the hospital 9 days ago. The main problem requiring admission was Postprocedural intraabdominal abscess . The discharge summary and/or Transitional Care Management documentation was reviewed. Medication reconciliation was performed as indicated via the Hong as Reviewed timestamp. Valencia Brooks was contacted by Transitional Care Management services two days after his discharge. This encounter and supporting documentation was reviewed. The complexity of medical decision making for this patient's transitional care is Moderate. Documentation: Mode: Telephone Patient Patient Work Phone: Patient Cell Phone: Preferred phone: [phone] Consent: I confirmed patient understanding of the risks and benefits of telehealth visits and obtained consent to proceed with the telehealth visit. Location of Patient: Home of patient ALLERGIES AND ADVERSE DRUG REACTIONS Penicillins SUBJECTIVE Valencia Brooks is a 83 year old old male patient. HISTORY OF PRESENT ILLNESS He is doing well. He had an appointment with his doctor today to check on his drain. Everything seems to be going well. He is eating and drinking well. He is having a lot of gas. He will be starting cipro today as prescribed by the doctor today to help with his abscess. REASON FOR HOSPITALIZATION: Valencia Brooks is a 83 year old male with a H hypothyroidism, osteoarthritis, GERD, lipoprotein deficiency disorder, basal cell carcinoma. He was recently admitted at [facility] and underwent lap subtotal colectomy by Dr. Hinton. A drain was left in place and patient was discharged. He was seen in [facility] on Wednesday05/17/2024 where minimal drain output was noted and drain was discontinued. He then presented to OSH ED on Wednesday05/21/2024 with complaints of syncope and abdominal pain. He was seen at [facility] where imaging was completed and was found to have intra- abdominal abscess in the gallbladder fossa. Admitted to the [facility] under the EGS service for IV abx and IR consult for abscess drain placement. SIGNIFICANT FINDINGS: Intra-abdominal abscess s/p IR drain placement HOSPITAL COURSE: 05/21/2024: Presented as transfer from OSH after being found to have intra-abdominal abscess in gallbladder fossa. Admitted under the EGS service for IV abx and IR consult for drain placement. 05/22/2024: To IR for drain placement. Cultures sent. 05/23/2024: Patient is tolerating a regular diet without nausea or vomiting. He is passing flatus. He is voiding spontaneously, without difficulty. His pain is controlled on PO regimen. He has undergone drain teaching and is able to manage drain at time, as well as has assistance for drain management. He is medically cleared for discharge home today. Past Medical, Surgical, Social, and Family history, reviewed and updated as needed. CURRENT MEDICATIONS Current Outpatient Medications Medication Sig Dispense Refill acetaminophen (TYLENOL) 325 mg tablet Take 2 Tablets by mouth every 6 (six) hours. 30 Tablet 0 sodium chloride (BD PosiFlush) 0.9 % SOLN flush syringe 10 mL by Intracatheter route 3 times daily (with meals). 1000 mL 0 levothyroxine (SYNTHROID) 137 MCG tablet Take 137 mcg by mouth daily. melatonin 5 mg TABS tablet Take 5 mg by mouth at bedtime as needed for Other (sleep). ferrous sulfate 325 mg (65 mg elemental) tablet Take 1 Tablet by mouth daily. omeprazole (PRILOSEC) 40 MG capsule Take 40 mg by mouth daily. Calcium Carbonate-Vit D-Min (Calcium 600+D3 Plus Minerals) 600-800 MG-UNIT TABS Take 1 Tablet by mouth daily. aspirin (Aspirin 81) 81 MG chewable tablet Take 81 mg by mouth daily. vitamin B-12 (CYANOCOBALAMIN) 500 MCG tablet Take 500 mcg by mouth daily. CALCIUM CITRATE ORAL Take 600 mg by mouth 2 times a day. No current facility-administered medications for this visit. OBJECTIVE Review of Systems Gastrointestinal: + flatus All other systems reviewed and are negative. ASSESSMENT AND PLAN Valencia Brooks is a 83 year old old male patient. His next appointment on 06/[address] scan in [place]. His PCP follow up is the week following. Assessment AND Plan Results Review Labs Micro Path Imaging [employer] ATTESTATION Please confirm you have completed the attestation actions Listed below: Yes: Reviewed discharge summary Reconciled me (more content not included)... [facility] [employer] [facility] 05-24-2024 Note Transitions of Care Follow Up Call Initial communication post- discharge: 1st attempt: 05/24/24, 9:56 am Contact reached, HIPAA verified Sources of Information: [x] Patient [x] Hospital Discharge/CDU Summary reviewed [] Hospital fax received from [x] List of recent hospitalizations or ED visits reviewed [] Patient/Caregiver declined Follow Up Call [] CarePort [] Other: Date of Admission: 05/21/2024 Date of Discharge: 05/23/2024 Hospital Discharge diagnosis: Postprocedural intraabdominal abscess Current symptoms/Patient concerns: Patient states he is feeling better, no pain, denies any new/worsening symptoms Appetite good Using the restroom as normal Reviewed and aware of medication changes TCM/Hospital discharge follow up appointment already scheduled Reviewed and reminded of upcoming appointments, has post op with surgeon at [facility], patient's PCP is non MH provider Understands discharge paperwork Denies any further questions or concerns Patient/caregiver was provided with phone number for Care Coordination and [facility] Nurse Line [phone] Medication changes: Yes If yes, what are they and does patient understand how and when to take? Yes START taking: acetaminophen (TYLENOL) amoxicillin-clavulanate (AUGMENTIN) sodium chloride (BD PosiFlush) Medication list reviewed with patient: Yes Medication-related problems: MTP: Problem identified: No medication-related issues identified - None Patient able to obtain prescribed medications per discharge list: Yes Pharmacy needs: None at this time Patient provided pharmacy number [phone] for medication related concerns/follow up. Reviewed mail order pharmacy information with patient: Patient lives out of [facility], sees non providers Needs follow up appointment or procedure: Yes, pt to schedule Future Appointments (next 10) Provider Department Center 05/31/2024 10:00 AM DISCHARGE MANAGEMENT FOLLOW UP [facility] Virtual On Demand Care Arrive at: Patient's Home Pt.Access/CM Review need for or follow up on pending diagnostic test, referrals to specialist and treatment plans with patient/caregiver: Yes Community resources identified for patient/family: No Durable medical equipment ordered: No Education provided to patient/caregiver to support self management, ADL's, etc: Take all medications as prescribed Attend all recommended follow up appointments Mode of Transportation: Patient arranges Interact with other health rn intensive care unit involved in patient care: No Referral to Primary Care Coordination: No Referral to Fidel White: No Additional information needed and requested: Yes Reminded to bring in all medications (old AND new) to future appointment(s). Cristina Graham MSN, stapler coil unit Patient Hasher Operator The [facility] [place] Department Number: [phone], option 3 [facility] 05-24-2024 History of Present illness Narrative Transitions of Care Follow Up Call Initial communication post- discharge: 1st attempt: 05/24/24, 9:56 am Contact reached, HIPAA verified Sources of Information: [x] Patient [x] Hospital Discharge/CDU Summary reviewed [] Hospital fax received from [x] List of recent hospitalizations or ED visits reviewed [] Patient/Caregiver declined Follow Up Call [] CarePort [] Other: Date of Admission: 05/21/2024 Date of Discharge: 05/23/2024 Hospital Discharge diagnosis: Postprocedural intraabdominal abscess Current symptoms/Patient concerns: Patient states he is feeling better, no pain, denies any new/worsening symptoms Appetite good Using the restroom as normal Reviewed and aware of medication changes TCM/Hospital discharge follow up appointment already scheduled Reviewed and reminded of upcoming appointments, has post op with surgeon at [facility], patient's PCP is non provider Understands discharge paperwork Denies any further questions or concerns Patient/caregiver was provided with phone number for Care Coordination and [facility] Nurse Line [phone] Medication changes: Yes If yes, what are they and does patient understand how and when to take? Yes START taking: acetaminophen (TYLENOL) amoxicillin-clavulanate (AUGMENTIN) sodium chloride (BD PosiFlush) Medication list reviewed with patient: Yes Medication-related problems: MTP: Problem identified: No medication-related issues identified - None Patient able to obtain prescribed medications per discharge list: Yes Pharmacy needs: None at this time Patient provided pharmacy number [phone] for medication related concerns/follow up. Reviewed mail order pharmacy information with patient: Patient lives out of [facility], sees non providers Needs follow up appointment or procedure: Yes, pt to schedule Future Appointments (next 10) Provider Department Center 05/31/2024 10:00 AM DISCHARGE MANAGEMENT FOLLOW UP [facility] Virtual On Demand Care Arrive at: Patient's Home Pt.Access/CM Review need for or follow up on pending diagnostic test, referrals to specialist and treatment plans with patient/caregiver: Yes Community resources identified for patient/family: No Durable medical equipment ordered: No Education provided to patient/caregiver to support self management, ADL's, etc: Take all medications as prescribed Attend all recommended follow up appointments Mode of Transportation: Patient arranges Interact with other health rn intensive care unit involved in patient care: No Referral to Primary Care Coordination: No Referral to Fidel White: No Additional information needed and requested: Yes Reminded to bring in all medications (old & new) to future appointment(s). Cristina MEADOWS, stapler coil unit Patient Hasher Operator [facility] Department Number: [phone], option 3 documented in this encounter [facility] 05-23-2024 History of Present illness Narrative I have reviewed and agree with Amanda's (Student Nurse) documentation for [id number] shift. Images from the original note were not included. GENERAL INFORMATION EMERGENCY GENERAL SURGERY- DAILY PROGRESS NOTE Patient Name: Valencia Brooks Admission Date: 05/21/2024 Patient seen and examined on 05/23/24 INTERVAL HISTORY/EVENTS Background: Valencia Brooks is a 83 year old male with a H hypothyroidism, osteoarthritis, GERD, lipoprotein deficiency disorder, basal cell carcinoma. He was recently admitted at [facility] and underwent lap subtotal colectomy by Dr. Hinton. A drain was left in place and patient was discharged. He was seen in [facility] on Wednesday05/17/2024 where minimal drain output was noted and drain was discontinued. He then presented to OSH ED on Wednesday05/21/2024 with complaints of syncope and abdominal pain. He was seen at [facility] where imaging was completed and was found to have intra- abdominal abscess in the gallbladder fossa. Admitted to the [facility] under the EGS service for IV abx and IR consult for abscess drain placement. Hospital Course: 05/21/2024: Presented as transfer from OSH after being found to have intra-abdominal abscess in gallbladder fossa. Admitted under the EGS service for IV abx and IR consult for drain placement. 05/22/2024: To IR for drain placement. Cultures sent. 24 Hour Events: No acute events reported overnight per patient or per nursing. On evaluation this AM patient denies any abdominal pain. Denies any chest pain, shortness of breath or abdominal pain. No reports of nausea or vomiting. Patient reports he is eager for discharge. Reports he is comfortable taking care of the drain and has family to assist with drain care. Vital signs reviewed. Afebrile. HR has been acceptable with no tachycardia. BPs acceptable with no hypotension. Acceptable O2 saturations on room air. Labs reviewed. Leukocytosis resolved. H and H remains stable and acceptable. Platelets are acceptable. BMP with acceptable electrolytes and stable BUN/creatinine. Intake: 220 mL PO: 0 mL IV: 200 mL Irrigation: 20 mL Output: 945 mL UOP: 945 mL BM: 0 occurrences. Last documented BM FLORIST MANAGER Drain: None recorded Tmax: 37.0 ---- PHYSICAL EXAM ---- Vital Signs: Vital sign ranges over the past 24 hours (retrieved 05/23/2024 at 6:44 AM): Tmax (24 hours): 98.6 F (37 C) Pulse Av.5 Min: 76 Max: 87 Systolic (24hrs), Av , Min:112 , Max:133 Diastolic (24hrs), Av, Min:54, Max:68 MAP (mmHg) Av.2 mmHg Min: 69 mmHg Max: 81 mmHg Resp Av.9 Min: 14 Max: 22 SpO2 Av.2 % Min: 93 % Max: 97 % ---- PHYSICAL EXAM ---- GENERAL: Lying in bed. HOB elevated. Appears comfortable, in NAD HEENT: Normocephalic, atraumatic. CARDIOVASCULAR: Regular rate and rhythm. Palpable radial and DP pulses bilaterally. PULMONARY: CTA bilaterally. No wheezing, rales, or rhonchi. Breathing comfortably on room air. ABDOMINAL: Soft, non-tender, non-distended. Lap sites to umbilicus and RUQ with overlying dermabond, open to air. No erythema, warmth or drainage. IR drain with dark, sanguinous drainage appreciated. EXTREMITIES: SANTANA x4. No peripheral edema appreciated. SKIN: Warm and dry. NEUROLOGICAL: GCS 15. Awake, alert, oriented x3. SANTANA x4 to commands with no focal deficits appreciated. LABORATORY RESULTS (LAST 24 HOURS) CBC/PT/INR 05/23/2024 4:42 AM WBC 11.1 RBC 3.37 Hgb 7.5 Hct 24.9 MCV 74 RDW 20.5 Plt 297 Basic Metabolic Panel 05/23/2024 4:42 AM Na 136 K 3.7 Cl 103 CO2 25 Gap 12 Glu 109 BUN 11 Cr 0.71 Ca 7.4 Mg 1.9 PO4 3.4 Fingerstick Glucose (last 72 hours) None IMAGING RESULTS (PERSONALLY REVIEWED) All admit imaging and follow up imaging reviewed. No new imaging today. ASSESSMENT & PLAN -- Diagnoses: 1. Intra-abdominal abscess 2. Leukocytosis (resolved) 3. Acute post op pain PMHx: hypothyroidism, osteoarthritis, GERD, lipoprotein deficiency disorder, basal cell carcinoma Incidental Findings: (reviewed 05/22 by BECKA) None per [facility] imaging Home meds: Aspirin 81mg daily Ferrous Sulfate 65mg daily Levothyroxine 137mcg daily Melatonin 5mg daily Omeprazole 40mg daily Vitamin B12 500mcg daily MVI daily Calcium Citrate 600mg BID Plan: Neurological: . Acute post op pain. Denies any pain on evaluation this AM. - Continue acetaminophen 650mg q6h scheduled - Continue oxycodone 2.5/5 mg q4h PRN moderate/severe pain Cardiovascular: No acute cardiac issues. BP and HR have remained acceptable. - Continue routine BP and HR monitoring per unit protocol - Resume ASA 81mg today Respiratory: No acute respiratory issues. Acceptable O2 saturations on room ar. - Continue pulmonary hygiene - Encourage IS GI/Diet: s/p lap subtotal cholecystectomy on 05/[address] Hinton at [facility]. Now presenting with abdominal pain and found to have intra-abdominal abscess in the gallbladder fossa. Tolerating regular diet post-procedure. No documented BM since admission on 05/21 - Continue regular diet - SContinue bowel regimen: Continue daily Senna, daily miralax, and PRN Dulcolax - Continue pantoprazole 40mg daily in place of home omperazole 40mg daily as patient's home med not on formulary Renal/Electrolytes: Voiding spontaneously. BMP with acceptable electrolytes and stable BUN/Creatinine. - No indication for IVF - Encourage PO intake - Replace electrolytes PRN - Does not need repeat BMP and Mag in AM, obtain PRN Heme: H and H remains stable. Acute blood loss anemia in the post-op setting. Patient remains hemodynamically stable. - No indication for tranfusion - Does not need repeat CBC in AM, obtain PRN ID: Afebrile, mild leukocytosis now resolved - Will transition to augmentin at discharge for total 4 day course of abx - Does not need repeat CBC in AM Endocrine: No glycemic/endocrine issues. MSK: No acute MSK issues. Concern for syncope related to abdominal infection. Will monitor throughout course. - Activity: OOB to chair. - Continue progressive mobilty procedure. - PT/OT consulted Recs for home once medically cleared. Prophylaxis: - VTE: Continue SCDs and Lovenox 40 mg BID. Anti Xa 4 hours after 3rd consecutive dose. Due on 05/24 @ 0100 (ordered) - Stress Ulcer PPx: Continue home PPI Tubes/Lines/Drains: - Maintain PIVs - Maintain IR drain Dispo: Patient is medically cleared for discharge home today. Follow up with Emergency General Surgery in 1 week for evaluation for drain removal. Patient will be scheduled for follow up at [facility] next Friday May 31, 2024 WILVER Fernandez Trauma Surgery Surgical Critical Care Emergency General Surgery Personal Pager: [phone] Emergency General Surgery Consult Pager: [phone] Emergency General Surgery Floor Pager: [phone] The patient's care was discussed with the EGS floor attending, Dr. Hinton. Case Management SW/CM has reviewed patient's chart and assessed that there are no discharge planning needs at this time. The following was reviewed to determine no SW/CM needs warranted. 1). PT/OT evaluations indicate pt can DC home with no needs or PT/OT evaluations are not warranted. 2). No wound care or IV Antibiotics indicated at this time. 3). No SW/CM consults placed through nursing admission screen 4). Pt does not meet the criteria of being a Medicare recipient that has a high or rising readmission rate. Patient will continue to be discussed in multi-disciplinary rounds and monitored daily. If any of the the above changes, SW/CM will complete appropriate assessments and interventions. Nia DOLL, RN Inpatient Dietary Aide Teacher Cell 5 [facility] [id number] [phone] Images from the original note were not included. GENERAL INFORMATION EMERGENCY GENERAL SURGERY- DAILY PROGRESS NOTE Patient Name: Valencia Brooks Admission Date: 05/21/2024 Patient seen and examined on 05/22/24 INTERVAL HISTORY/EVENTS Background: Valencia Brooks is a 83 year old male with a H hypothyroidism, osteoarthritis, GERD, lipoprotein deficiency disorder, basal cell carcinoma. He was recently admitted at [facility] and underwent lap subtotal colectomy by Dr. Hinton. A drain was left in place and patient was discharged. He was seen in [facility] on Wednesday05/17/2024 where minimal drain output was noted and drain was discontinued. He then presented to OSH ED on Wednesday05/21/2024 with complaints of syncope and abdominal pain. He was seen at [facility] where imaging was completed and was found to have intra- abdominal abscess in the gallbladder fossa. Admitted to the [facility] under the EGS service for IV abx and IR consult for abscess drain placement. Hospital Course: 05/21/2024: Presented as transfer from OSH after being found to have intra-abdominal abscess in gallbladder fossa. Admitted under the EGS service for IV abx and IR consult for drain placement. 24 Hour Events: This is my first time meeting this patient. No acute events reported overnight per patient or per nursing. On evaluation this AM patient denies any abdominal pain. Denies any chest pain, shortness of breath or abdominal pain. No reports of nausea or vomiting. Patient seen for repeat evaluation post-procedure. Patient denies any new pain. Vital signs reviewed. Afebrile. HR has been acceptable with no tachycardia. BPs acceptable with no hypotension. Acceptable O2 saturations on room air. Labs reviewed. Down-trending leukocytosis. H and H remains stable and acceptable. Platelets are acceptable. BMP with acceptable electrolytes and stable BUN/creatinine. Intake: 100 mL PO: 0 mL IV: 100 mL Output: 500 mL UOP: 500 mL BM: 0 occurrences. Last documented BM FLORIST MANAGER Tmax: 37.4 ---- PHYSICAL EXAM ---- Vital Signs: Vital sign ranges over the past 24 hours (retrieved 05/22/2024 at 6:29 AM): Tmax (24 hours): 99.3 F (37.4 C) Pulse Av.4 Min: 80 Max: 88 Systolic (24hrs), Av , Min:112 , Max:137 Diastolic (24hrs), Av, Min:52, Max:73 MAP (mmHg) Av.2 mmHg Min: 69 mmHg Max: 90 mmHg Resp Av.5 Min: 16 Max: 18 SpO2 Av.7 % Min: 94 % Max: 95 % ---- PHYSICAL EXAM ---- GENERAL: Lying in bed. HOB elevated. Appears comfortable, in NAD HEENT: Normocephalic, atraumatic. CARDIOVASCULAR: Regular rate and rhythm. Palpable radial and DP pulses bilaterally. PULMONARY: CTA bilaterally. No wheezing, rales, or rhonchi. Breathing comfortably on room air. ABDOMINAL: Soft, non-tender, non-distended. Lap sites to umbilicus and RUQ with overlying dermabond, open to air. No erythema, warmth or drainage. IR drain with dark, sanguinous drainage appreciated. EXTREMITIES: SANTAAN x4. No peripheral edema appreciated. SKIN: Warm and dry. NEUROLOGICAL: GCS 15. Awake, alert, oriented x3. SANTANA x4 to commands with no focal deficits appreciated. LABORATORY RESULTS (LAST 24 HOURS) CBC/PT/INR 05/22/2024 05/21/2024 1:34 AM 2:34 PM WBC 11.9 12.3 RBC 3.50 3.42 Hgb 8.0 7.9 Hct 26.1 25.4 MCV 75 75 RDW 19.8 20.0 Plt 282 299 aPTT -- 26 INR 1.18 1.14 Basic Metabolic Panel 05/22/2024 05/21/2024 1:34 AM 2:34 PM Na 138 138 K 3.8 4.3 Cl 103 102 CO2 Gap 13 13 Glu 123 115 BUN 13 11 Cr 0.74 0.73 Ca 8.0 8.2 Fingerstick Glucose (last 72 hours) None IMAGING RESULTS (PERSONALLY REVIEWED) All admit imaging and follow up imaging reviewed. No new imaging today. ASSESSMENT & PLAN -- Diagnoses: 1. Intra-abdominal abscess 2. Leukocytosis 3. Acute post op pain PMHx: hypothyroidism, osteoarthritis, GERD, lipoprotein deficiency disorder, basal cell carcinoma Incidental Findings: (reviewed 05/22 by BECKA) None per [facility] imaging Home meds: Aspirin 81mg daily Ferrous Sulfate 65mg daily Levothyroxine 137mcg daily Melatonin 5mg daily Omeprazole 40mg daily Vitamin B12 500mcg daily MVI daily Calcium Citrate 600mg BID Plan: Neurological: . Acute post op pain. - Continue acetaminophen 650mg q6h scheduled - Continue oxycodone 2.5/5 mg q4h PRN moderate/severe pain Cardiovascular: No acute cardiac issues. BP and HR have remained acceptable. - Continue routine BP and HR monitoring per unit protocol - Will discuss timing for ASA 81mg resumption Respiratory: No acute respiratory issues. Acceptable O2 saturations on room ar. - Continue pulmonary hygiene - Encourage IS GI/Diet: s/p lap subtotal cholecystectomy on 05/[address] Hinton at [facility]. Now presenting with abdominal pain and found to have intra-abdominal abscess in the gallbladder fossa. Tolerating regular diet post-procedure. No documented BM since admission on 05/21 - Continue regular diet - Start bowel regimen: Continue daily Senna, daily miralax, and PRN Dulcolax - Start pantoprazole 40mg daily in place of home omperazole 40mg daily as patient's home med not on formulary Renal/Electrolytes: Voiding spontaneously. BMP with acceptable electrolytes and stable BUN/Creatinine. - No indication for IVF - Encourage PO intake - Replace electrolytes PRN - Repeat BMP and Mag in AM Heme: H and H remains stable. Acute blood loss anemia in the post-op setting. Patient remains hemodynamically stable. - No indication for tranfusion - Repeat CBC in AM ID: Afebrile, mild leukocytosis. - Continue Zosyn 3.375g IV Q6h x 4 days, given source control obtained today - Repeat CBC in AM Endocrine: No glycemic/endocrine issues. MSK: No acute MSK issues. Concern for syncope related to abdominal infection. Will monitor throughout course. - Activity: OOB to chair. - Continue progressive mobilty procedure. - PT/OT consulted Appreciate rec's to assist with dispo planning. Prophylaxis: - VTE: Continue SCDs and Lovenox 40 mg BID. Anti Xa 4 hours after 3rd consecutive dose. Due on 05/24 @ 0100 (ordered) - Stress Ulcer PPx: Continue home PPI Tubes/Lines/Drains: - Maintain PIVs - Maintain IR drain Dispo: Continue care on the RNF for IV abx, PT/OT consults, leukocytosis monitoring and drain care/teaching. Anticipate patient will be medically cleared for discharge in the next 2-3 days. Follow up with Emergency General Surgery in 2 weeks for evaluation for drain removal WILVER Fernandez Trauma Surgery Surgical Critical Care Emergency General Surgery Personal Pager: [phone] Emergency General Surgery Consult Pager: [phone] Emergency General Surgery Floor Pager: [phone] The patient's care was discussed with the Trauma floor attending, Dr. Hinton. . Provider Called Report To (GRACIE Gonzalez floor, 8:03 PM): GRACIE Holman, 1541 (05/21/24 1541) Pharmacy Renal Dosing Service Name: Valencia Brooks Age: [age] year old Gender: male Ht: 69 per care everywhere Wt: 88.9 kg per care everywhere Patient is currently prescribed the following renally monitored Medication(s): Renally Adjusted Meds (720h ago, onward) Ordered Stop 05/21/24 1615 piperacillin-tazobactam (ZOSYN) 3,375 mg in sodium chloride 10 mL IV push 3.375 g, Intravenous, 200 mL/hr, EVERY 6 HOURS ANTIBIOTIC Question: Suspected Source/Reason for Therapy Answer: Gastrointestinal/Intraabdominal -- Relevant objective data reviewed: CrCl 86 using SCr 0.73 today and adjusted body weight 78 kg Assessment and Recommendation: The medication required adjustment for renal function at the time of initial order verification. The original medication order zosyn 3.375 gm q8h has been updated to zosyn 3.375 gm q6h. Medication therapy has been updated per consult agreement. Edith Bhat [facility] Department of Pharmacy Services documented in this encounter [facility] 05-23-2024 Note [facility] DIVISION OF ACUTE CARE SURGERY EMERGENCY GENERAL SURGERY DISCHARGE SUMMARY [place] [id number] Valencia Brooks Date of : 1940 83 year oldmale Attending Rosi Hinton MD Date of Admission 05/21/2024 Date of Discharge 05/23/2024 FINAL DIAGNOSES: Hospital Problems as of 05/23/2024 * (Principal) Postprocedural intraabdominal abscess (HCC) PROCEDURES: 05/22/2024: IR drain placement by Dr. Cortez DISCHARGE MEDICATIONS: Current Discharge Medication List START taking these medications Details acetaminophen (TYLENOL) 325 mg tablet Take 2 Tablets by mouth every 6 (six) hours. Qty: 30 Tablet, Refills: 0 sodium chloride (BD PosiFlush) 0.9 % SOLN flush syringe 10 mL by Intracatheter route 3 times daily (with meals). Qty: 1000 mL, Refills: 0 amoxicillin-clavulanate (AUGMENTIN) 875-125 MG per tablet Take 1 Tablet by mouth 2 times daily for 4 days. Qty: 8 Tablet, Refills: 0 CONTINUE these medications which have NOT CHANGED Details levothyroxine (SYNTHROID) 137 MCG tablet Take 137 mcg by mouth daily. melatonin 5 mg TABS tablet Take 5 mg by mouth at bedtime as needed for Other (sleep). ferrous sulfate 325 mg (65 mg elemental) tablet Take 1 Tablet by mouth daily. omeprazole (PRILOSEC) 40 MG capsule Take 40 mg by mouth daily. Calcium Carbonate-Vit D-Min (Calcium 600+D3 Plus Minerals) 600-800 MG-UNIT TABS Take 1 Tablet by mouth daily. aspirin (Aspirin 81) 81 MG chewable tablet Take 81 mg by mouth daily. vitamin B-12 (CYANOCOBALAMIN) 500 MCG tablet Take 500 mcg by mouth daily. CALCIUM CITRATE ORAL Take 600 mg by mouth 2 times a day. REASON FOR HOSPITALIZATION: Valencia Brooks is a 83 year old male with a H hypothyroidism, osteoarthritis, GERD, lipoprotein deficiency disorder, basal cell carcinoma. He was recently admitted at [facility] and underwent lap subtotal colectomy by Dr. Hinton. A drain was left in place and patient was discharged. He was seen in [facility] on Wednesday05/17/2024 where minimal drain output was noted and drain was discontinued. He then presented to OSH ED on Wednesday05/21/2024 with complaints of syncope and abdominal pain. He was seen at [facility] where imaging was completed and was found to have intra- abdominal abscess in the gallbladder fossa. Admitted to the [facility] under the EGS service for IV abx and IR consult for abscess drain placement. SIGNIFICANT FINDINGS: Intra-abdominal abscess s/p IR drain placement HOSPITAL COURSE: 05/21/2024: Presented as transfer from OSH after being found to have intra-abdominal abscess in gallbladder fossa. Admitted under the EGS service for IV abx and IR consult for drain placement. 05/22/2024: To IR for drain placement. Cultures sent. 05/23/2024: Patient is tolerating a regular diet without nausea or vomiting. He is passing flatus. He is voiding spontaneously, without difficulty. His pain is controlled on PO regimen. He has undergone drain teaching and is able to manage drain at time, as well as has assistance for drain management. He is medically cleared for discharge home today. The patient was seen and examined on the day of discharge with the following findings: GENERAL: Lying in bed. HOB elevated. Appears comfortable, in NAD HEENT: Normocephalic, atraumatic. CARDIOVASCULAR: Regular rate and rhythm. Palpable radial and DP pulses bilaterally. PULMONARY: CTA bilaterally. No wheezing, rales, or rhonchi. Breathing comfortably on room air. ABDOMINAL: Soft, non-tender, non-distended. Lap sites to umbilicus and RUQ with overlying dermabond, open to air. No erythema, warmth or drainage. IR drain with dark, sanguinous drainage appreciated. EXTREMITIES: SANTANA x4. No peripheral edema appreciated. SKIN: Warm and dry. NEUROLOGICAL: GCS 15. Awake, alert, oriented x3. SANTANA x4 to commands with no focal deficits appreciated. Condition at discharge: improved Diet: No restrictions Restrictions: No lifting greater than 10 lbs Patient discharged to: Home ANTICIPATED FOLLOW UP: Future Appointments Date Time Provider Department Center 05/31/2024 10:00 AM DISCHARGE MANAGEMENT FOLLOW UP VIRTUAL ON D Pt.Access/CM Other indicated follow up and instructions for scheduling: Follow up with Dr. Hinton at [facility], [address] on Friday May 31, 2024 Explanation of the primary diagnosis, and secondary diagnoses where applicable, including test results, Discussion of any new medications and treatments, including expected benefits and potential major side effects, Explanation of previous treatments or medications that are discontinued, Discussion of post-hospital day-to-day care needs including therapy, wound care, etc., and Follow up plans and warning signs that should prompt more urgent follow up Randi Corbin APRN-PRINCIPAL [employer] OFFICER Trauma Surgery Surgical Critical Care Emergency Genera (more content not included)... [facility] 05-23-2024 Hospital course Narrative Images from the original note were not included. [facility] DIVISION OF ACUTE CARE SURGERY EMERGENCY GENERAL SURGERY DISCHARGE SUMMARY [address] [phone] Valencia Brooks Date of : 1940 83 year oldmale Attending Rosi Hinton MD Date of Admission 05/21/2024 Date of Discharge 05/23/2024 FINAL DIAGNOSES: Hospital Problems as of 05/23/2024 * (Principal) Postprocedural intraabdominal abscess (HCC) PROCEDURES: 05/22/2024: IR drain placement by Dr. Cortez DISCHARGE MEDICATIONS: Current Discharge Medication List START taking these medications Details acetaminophen (TYLENOL) 325 mg tablet Take 2 Tablets by mouth every 6 (six) hours. Qty: 30 Tablet, Refills: 0 sodium chloride (BD PosiFlush) 0.9 % SOLN flush syringe 10 mL by Intracatheter route 3 times daily (with meals). Qty: 1000 mL, Refills: 0 amoxicillin-clavulanate (AUGMENTIN) 875-125 MG per tablet Take 1 Tablet by mouth 2 times daily for 4 days. Qty: 8 Tablet, Refills: 0 CONTINUE these medications which have NOT CHANGED Details levothyroxine (SYNTHROID) 137 MCG tablet Take 137 mcg by mouth daily. melatonin 5 mg TABS tablet Take 5 mg by mouth at bedtime as needed for Other (sleep). ferrous sulfate 325 mg (65 mg elemental) tablet Take 1 Tablet by mouth daily. omeprazole (PRILOSEC) 40 MG capsule Take 40 mg by mouth daily. Calcium Carbonate-Vit D-Min (Calcium 600+D3 Plus Minerals) 600-800 MG-UNIT TABS Take 1 Tablet by mouth daily. aspirin (Aspirin 81) 81 MG chewable tablet Take 81 mg by mouth daily. vitamin B-12 (CYANOCOBALAMIN) 500 MCG tablet Take 500 mcg by mouth daily. CALCIUM CITRATE ORAL Take 600 mg by mouth 2 times a day. REASON FOR HOSPITALIZATION: Valencia Brooks is a 83 year old male with a H hypothyroidism, osteoarthritis, GERD, lipoprotein deficiency disorder, basal cell carcinoma. He was recently admitted at [facility] and underwent lap subtotal colectomy by Dr. Hinton. A drain was left in place and patient was discharged. He was seen in [facility] on Wednesday05/17/2024 where minimal drain output was noted and drain was discontinued. He then presented to OSH ED on Wednesday05/21/2024 with complaints of syncope and abdominal pain. He was seen at [facility] where imaging was completed and was found to have intra- abdominal abscess in the gallbladder fossa. Admitted to the [facility] under the EGS service for IV abx and IR consult for abscess drain placement. SIGNIFICANT FINDINGS: Intra-abdominal abscess s/p IR drain placement HOSPITAL COURSE: 05/21/2024: Presented as transfer from OSH after being found to have intra-abdominal abscess in gallbladder fossa. Admitted under the EGS service for IV abx and IR consult for drain placement. 05/22/2024: To IR for drain placement. Cultures sent. 05/23/2024: Patient is tolerating a regular diet without nausea or vomiting. He is passing flatus. He is voiding spontaneously, without difficulty. His pain is controlled on PO regimen. He has undergone drain teaching and is able to manage drain at time, as well as has assistance for drain management. He is medically cleared for discharge home today. The patient was seen and examined on the day of discharge with the following findings: GENERAL: Lying in bed. HOB elevated. Appears comfortable, in NAD HEENT: Normocephalic, atraumatic. CARDIOVASCULAR: Regular rate and rhythm. Palpable radial and DP pulses bilaterally. PULMONARY: CTA bilaterally. No wheezing, rales, or rhonchi. Breathing comfortably on room air. ABDOMINAL: Soft, non-tender, non-distended. Lap sites to umbilicus and RUQ with overlying dermabond, open to air. No erythema, warmth or drainage. IR drain with dark, sanguinous drainage appreciated. EXTREMITIES: SANTANA x4. No peripheral edema appreciated. SKIN: Warm and dry. NEUROLOGICAL: GCS 15. Awake, alert, oriented x3. SANTANA x4 to commands with no focal deficits appreciated. Condition at discharge: improved Diet: No restrictions Restrictions: No lifting greater than 10 lbs Patient discharged to: Home ANTICIPATED FOLLOW UP: Future Appointments Date Time Provider Department Center 05/31/2024 10:00 AM DISCHARGE MANAGEMENT FOLLOW UP VIRTUAL ON D Pt.Access/CM Other indicated follow up and instructions for scheduling: Follow up with Dr. Hinton at [facility] [address], [address] on Friday May 31, 2024 Explanation of the primary diagnosis, and secondary diagnoses where applicable, including test results, Discussion of any new medications and treatments, including expected benefits and potential major side effects, Explanation of previous treatments or medications that are discontinued, Discussion of post-hospital day-to-day care needs including therapy, wound care, etc., and Follow up plans and warning signs that should prompt more urgent follow up Randi Corbin APRN-RAVI Trauma Surgery Surgical Critical Care Emergency General Surgery Personal Pager: [phone] Emergency General Surgery Consult Pager: [phone] Emergency General Surgery Floor Pager: [phone] Cosigned by Rosi Hinton MD at 05/23/2024 2:29 PM EST documented in this encounter [facility] 05-23-2024 Hospital Discharge instructions Randi Corbin APRN-CNP - 05/23/2024 10:56 AM EST Discharge Instructions: Date of admission: 05/21/2024 Date of discharge: 05/23/2024 You are being discharged to home Follow up: - Please call to schedule your follow-up appointments - information provided separately. - You will need to follow up with: [facility] your [facility] Hinton[facility] [address] on Friday May 31, 2024 at 10:00am - See below for information regarding contacting your primary care physician or establishing care at [facility] if you do not already have one. Activity and Weight Bearing: - Do not lift, push, pull, or drag anything heavier than 10 pounds for 4 weeks. - You may return to driving when your pain is controlled enough that you can turn at your waist from side to side. Do not drive if you have taken an opioid medication within the past 24 hours. Showering/Bathing: - Okay to shower daily -- allow soap and water to run down your incisions. Do not scrub the area. The surgical glue over the top of your incisions will start to flake, please allow this to flake off on its own over the next week. - If you cannot maintain your balance in the shower, then you should not shower. Sponge baths are the best way to maintain hygiene while you are healing. - To sponge bath, wet a washcloth with soapy water and gently wash body with the washcloth. Then use a dry washcloth to wipe off. - No submerging the wounds or drain sites in water (bathtubs) or pools until cleared by our office - Make sure you cover your drain site VERY well with plastic when you shower. Once you are out of the shower, remove the plastic and dry off very well. Then re-apply dressings. - If you notice any increased redness swelling or drainage from your wound call our office immediately. Diet: - You do not have any dietary restrictions. However, following surgery, eating small, frequent meals of bland foods can be easier to tolerate. Drain Care: - Strip your drains by using an alcohol pad or a bit of foam soap. While holding the drain near your skin, squeeze the tubing in the direction of the bulb. - Keep the drain skin area clean by using a warm washcloth. - Record your drain output - both color and quantity - daily and bring this information with you to your follow up appointment. - Please see the included document for additional information regarding your drain. Pain control: - For MILD to MODERATE pain (pain 1-6 out of 10 on a pain scale) take: -- Tylenol (acetaminophen) 325 mg, 1-2 tablets every 6 hours as needed. - If you are still having pain 30 min after taking Tylenol, add: -- Motrin (ibuprofen) 400 mg, 1 tablet every 6 hours as needed. - If you begin to experience progressive and rapidly increasing pain that seems out of proportion to what you normally have been experiencing from your baseline pain after surgery/injury - you NEED TO CALL US IMMEDIATELY. Alternatively, you may come into the [facility] Emergency Department IMMEDIATELY for an emergent evaluation. Update your primary care physician or establish care: Please see your primary care physician at the next available appointment for follow up. Please call either on the day of your discharge, or the day after, to make the appointment. If you are followed by a managed care company or if your insurance requires, call your physician for authorization to be seen in a specialty clinic. If you do not have a primary physician please call [phone] for guidance on finding a [facility] provider. If you have questions or concerns, if your condition worsens or you develop new symptoms please call the [facility] Line at [phone]. The following attachments cannot be sent through Care Everywhere.How to Keep Track of Your Drainage (Mosotho)How to care for a closed suction drain (Mosotho)documented in this encounter [facility] 05-23-2024 Consult note Formatting of th is note is different from the original. OCCUPATIONAL THERAPY PROGRESS SUMMARY Patient seen from 09:00 to 09:14 on 5E unit for 14 minute treatment. SUBJECTIVE: Patient Subjective/Goals It feels good to be up and moving. I have a lot of help from medical people at home. (Re: family members) OBJECTIVE: Pain: No pain reported or noted Pain Relief Interventions Implemented: None required; No pain at this time Appearance/Behavior: Semi-supine in bed, personal pant, hospital gown x2, IR drain, PIV (hep locked), cooperative, pleasant Cognition: A&Ox3 UE Status: (B) UE AROM and strength WFL for completion of ADLs Self Care: Assistance Level NA Dep Max Mod Min CG CS DS HI I Set-Up Cues Comment Feeding x Grooming/ Hygiene x Oral hygiene and hand washing standing at sink level Bathing: Upper Body x Bathing: Lower Body x Dressing: Upper Body x Dressing: Lower Body x Doff/don socks while seated EOB via figure-4 technique Toileting x Toilet Transfers x Bed Transfer x Sit to stand from EOB without AD Stand to sit in bedside chair Bed Mobility x Semi-supine to seated EOB Functional Mobility x Pt ambulated short functional household distance without AD with DS. No overt LOB noted, mildly unsteady - pt reports baseline level. Patient seated in bedside chair at end of session with all needs within reach. Instructed NOT to mobilize without staff assist. Encouraged to remain OOB for a minimum of one hour, verbalized understanding. Endurance for Self Care: Good Patient/Family Education: Instructed Patient in roles of therapy. DME: With Patients permission ordered no equipment via Guanri Order. If any questions contact [facility] DME Provider at [phone]. 05/23/2024 6 Clicks Daily Activity OT Help from another person Eating meals 4 Help from another person taking care of personal grooming 4 Help from another person bathing 3 Help from another person putting on and taking off regular upper body clothing 4 Help from another person putting on and taking off regular lower body clothing 4 Help from another person toileting 4 OT 6 Clicks Score 23 6 Click Score Guidelines: 1 - Unable = Total/Dependent Assist 2 - A lot = Max/Moderate Assist 3 - A little = Minimum/Contact Guard Assist/Supervision 4 - Non = Modified Graham/Independent ASSESSMENT: ASSESSMENT: Patient is functionally appropriate for discharge home once medically cleared. No further Occupational Therapy Services reccommended at this time. Goals (to be achieved by discharge from acute care): ALL GOALS MET Patient will perform grooming with Modified Independent Patient will dress lower body with Modified Independent Patient will perform bathing with Modified Independent Patient will perform toileting with Modified Independent Patient will perform bed transfers with Modified Independent PLAN: Patient will be discharged from acute OT services. Patient functioning at baseline level with all goals met. Oanh Valentine OTR/Ryan NA = Not Assessed, I = Independent, HI = Modified Independent, Sup = Supervised, Set up = Physical Assistance for Set-up Only, Min = Minimal Assistance, Mod = Moderate Assistance, Max = Max assistance; Dep = Dependent; AROM = Active Range of Motion;PROM=Passive Range of Motion; MMT = Manual Muscle Test; Shld= Shoulder; Add = Adduction; Abd = Abduction [facility] 05-23-2024 Consult note Formatting of th is note is different from the original. OCCUPATIONAL THERAPY PROGRESS SUMMARY Patient seen from 09:00 to 09:14 on 5E unit for 14 minute treatment. SUBJECTIVE: Patient Subjective/Goals It feels good to be up and moving. I have a lot of help from medical people at home. (Re: family members) OBJECTIVE: Pain: No pain reported or noted Pain Relief Interventions Implemented: None required; No pain at this time Appearance/Behavior: Semi-supine in bed, personal pant, hospital gown x2, IR drain, PIV (hep locked), cooperative, pleasant Cognition: A&Ox3 UE Status: (B) UE AROM and strength WFL for completion of ADLs Self Care: Assistance Level NA Dep Max Mod Min CG CS DS HI I Set-Up Cues Comment Feeding x Grooming/ Hygiene x Oral hygiene and hand washing standing at sink level Bathing: Upper Body x Bathing: Lower Body x Dressing: Upper Body x Dressing: Lower Body x Doff/don socks while seated EOB via figure-4 technique Toileting x Toilet Transfers x Bed Transfer x Sit to stand from EOB without AD Stand to sit in bedside chair Bed Mobility x Semi-supine to seated EOB Functional Mobility x Pt ambulated short functional household distance without AD with DS. No overt LOB noted, mildly unsteady - pt reports baseline level. Patient seated in bedside chair at end of session with all needs within reach. Instructed NOT to mobilize without staff assist. Encouraged to remain OOB for a minimum of one hour, verbalized understanding. Endurance for Self Care: Good Patient/Family Education: Instructed Patient in roles of therapy. DME: With Patients permission ordered no equipment via Guanri Order. If any questions contact [facility] DME Provider at [phone]. 05/23/2024 6 Clicks Daily Activity OT Help from another person Eating meals 4 Help from another person taking care of personal grooming 4 Help from another person bathing 3 Help from another person putting on and taking off regular upper body clothing 4 Help from another person putting on and taking off regular lower body clothing 4 Help from another person toileting 4 OT 6 Clicks Score 23 6 Click Score Guidelines: 1 - Unable = Total/Dependent Assist 2 - A lot = Max/Moderate Assist 3 - A little = Minimum/Contact Guard Assist/Supervision 4 - Non = Modified Graham/Independent ASSESSMENT: ASSESSMENT: Patient is functionally appropriate for discharge home once medically cleared. No further Occupational Therapy Services reccommended at this time. Goals (to be achieved by discharge from acute care): ALL GOALS MET Patient will perform grooming with Modified Independent Patient will dress lower body with Modified Independent Patient will perform bathing with Modified Independent Patient will perform toileting with Modified Independent Patient will perform bed transfers with Modified Independent PLAN: Patient will be discharged from acute OT services. Patient functioning at baseline level with all goals met. Oanh Valentine OTR/Ryan NA = Not Assessed, I = Independent, HI = Modified Independent, Sup = Supervised, Set up = Physical Assistance for Set-up Only, Min = Minimal Assistance, Mod = Moderate Assistance, Max = Max assistance; Dep = Dependent; AROM = Active Range of Motion;PROM=Passive Range of Motion; MMT = Manual Muscle Test; Shld= Shoulder; Add = Adduction; Abd = Abduction Associated Order(s): IP OCCUPATIONAL THERAPY SERVICE REQUEST OCCUPATIONAL THERAPY INITIAL EVALUATION Patient seen from 1332 to 1340 on GC5E unit for 8 minutes. Admit Date: 05/21/2024 2:27 PM Reason for Admit: 83 y/o male presenting as transfer from OSH for intraabdominal abscess; patient with recent cholecystectomy on 05/04/24 (Dr. Bass) Precautions/Activity Order: Moderate Falls Full Code Regular Diet Progressive Mobility Procedures this admit: 05/22/24: CT guided intraabdominal drain placement with moderate sedation Past Medical and Surgical History: PMH: No past medical history on file. PSH: No past surgical history on file. SUBJECTIVE: Patient Subjective: I was hoping to go home today, I live an hour and a half away. Patient Identified Goal(s): return to home. Home Living Situation Prior Functional Status: Independent with Activities of Daily Living Independent Ambulation with no AD Independent with Instrumental Activities of Daily Living Girlfriend provides transportation 1 fall in past 6 months, fainted prior to admission Assistance Available at Home: Lives with his girlfriend who can provide 16/11 Patient lives in a trailer with 3-4 BERNABE + rail. Full Bathroom on 1 level. Bedroom on 1 level. Equipment available at home: none OBJECTIVE: Pt's son and girlfriend present throughout session with pt's permission. Patient Identification: patient verbalizing his/her name and date of . Risks and benefits of occupational therapy: Patient informed of risks and benefits of treatment Appearance: seated EOB at onset, hospital gown, IV hep locked, IR drain (found disconnected - reattached by staff) Alertness: WFL Affect: WNL Cooperation/Behavior: Appropriate dialogue with therapist and Pleasant and cooperative Communication: WFL Pain: Pain rating: mild/10, Location: drain incision site Pain Relief Interventions Implemented: Positioning Self Care: Assistance Level Dep Max Mod Min CG CS DS HI I Set-Up Comment Feeding X Grooming/Hygiene X Anticipate standing at sink level Bathing:UB X Anticipate Bathing:LB X Anticipate Dressing:UB X Gown mgmt Dressing: LB X Toileting X Declines urgency during session, pt reports he has toileted since admission to floor w/ no assist Transfers/Bed Mobility: Assistance Level Dep Max Mod Min CG CS DS HI I Set-Up Comment Toilet Transfers Bed Transfers X Sit <> stand EOB to no AD Bed Mobility X Pt seated EOB at onset, performed indep per patient report Functional Mobility X Ambulates greater than household distance with RW, mildly unsteady with no overt LOB Patient remained seated EOB at end of session. Call benavides and telephone within reach. RN aware of patient location and mobility status. Patient instructed to call RN assist for all mobility. Endurance for Self Care: Good Static Sitting Balance: WFL Dynamic Sitting Balance: WFL UE Motor: not formally assessed however BUE appear WFL for ADL Vision/Perception: WFL Cognition: Orientation: Oriented to person, place, and date Follows Commands: WFL Attention: WNL Memory: WFL Problem Solving: WFL Safety/Judgement: WFL Sequencing: WFL Other Specialized Tests: None Patient/Family Education: Instructed patient in roles of therapy. DME: With Patients permission ordered no equipment via Guanri Order. If any questions contact [facility] DME Provider at [phone]. 05/22/2024 6 Clicks Daily Activity OT Help from another person Eating meals 4 Help from another person taking care of personal grooming 4 Help from another person bathing 3 Help from another person putting on and taking off regular upper body clothing 4 Help from another person putting on and taking off regular lower body clothing 3 Help from another person toileting 3 OT 6 Clicks Score 21 6 Click Score Guidelines: 1 - Unable = Total/Dependent Assist 2 - A lot = Max/Moderate Assist 3 - A little = Minimum/Contact Guard Assist/Supervision 4 - Non = Modified Graham/Independent ASSESSMENT: Patient is functionally appropriate for discharge home once medically cleared. Will continue to follow patient while in hospital as appropriate. Rehabilitation Potential: Good Problem List: decreased ADLs, decreased endurance, decreased functional transfers/mobility, impaired balance, decreased home management tasks/IADLs, and decreased functional activity tolerance Goals (to be achieved by discharge from acute care): Patient will perform grooming with Modified Independent Patient will dress lower body with Modified Independent Patient will perform bathing with Modified Independent Patient will perform toileting with Modified Independent Patient will perform bed transfers with Modified Independent PLAN: Valencia Brooks will be seen 1-3 times a week. Treatment to include: functional mobility training, ADL retraining, functional endurance activities, home management retraining, functional task simulation, adaptive equipment / compensatory strategy training, patient / family education and discharge planning, referral to appropriate support services, and pain Management able to discuss the evaluation findings and treatment plan with the patient/family. The patient/family did participate in the development of plan and goals. JEFF Dudley, OTR/L NA = Not Assessed, I = Independent, HI = Modified Independent, Sup = Supervised, Set up = Physical Assistance for Set-up Only, Min = Minimal Assistance, Mod = Moderate Assistance, Max = Max assistance; Dep = Dependent; AROM = Active Range of Motion;PROM=Passive Range of Motion; MMT = Manual Muscle Test; UB = Upper Body; LB = Lower Body Associated Order(s): IP PHYSICAL THERAPY SERVICE REQUEST PHYSICAL THERAPY ACUTE EVALUATION Referral received, chart reviewed. Patient seen from 132 to 141 on GC5E unit for 9 minutes. Admit date/time: 05/21/2024 2:27 PM Reason for Admit: 83 yo male with Dx of Intraabdominal Abscess. Cholecystectomy performed by Dr. Bass on 05/04/24, had his KELVIN drain removed 4 days PTS Procedures this admit: 05/22/24: CT guided intraabdominal drain placement with moderate sedation Past Medical and Surgical History: No past medical history on file. No past surgical history on file. Precautions: Mod Falls Risk Full Code Regular Diet Progressive Mobility Protocol Identification was verified by patient verbalizing his/her name and date of . Risks and Benefits of physical therapy: Patient/Family informed of risks and benefits of treatment (Son and Girlfriend present at bedside) SUBJECTIVE: Patient Subjective: I fell last week because I passed out. But I never fall otherwise. Patient Identified Goal(s): I want to go home today. 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 0 steps to bedroom/bathroom Assistance available: Live with Supportive GF We are always together Adult Son is present and supportive Equipment available: None OBJECTIVE: Appearance: Seated at EOB, Hospital gown x 2, IR Drain intact. Behavior: Alert, pleasant, cooperative, motivated Oriented x 3; demonstrates good insight to situation/Dx Follows simple - step commands consistently Pain: Abdominal soreness Pain Scale: 3 /10 Pain Relief Interventions Implemented: Positioning Relaxation Training Passive ROM: Grossly WFL x 4 extremities Strength/Active ROM: Symmetrical (B) Hemibody and without overt motor deficit identified (B) LE grossly 4/5 throughout. (+) age-related generalized deconditioning is noted Mobility: Bed Mobility not viewed as patient is seated EOB, reports (I) Seated Balance at EOB: (I) Sit to stand: no device: (I) Patient ambulates 150+ feet, no device: distant (S) overall. Slow, mildly unsteady gait pattern without overt ataxia/antalgia, no LOB Patient ascends/descends 4 stairs with 1 rail: reciprocal pattern: (S) Stand to sit in BS chair: (I) Endurance: WFL Patient Education: Educated Patient in role of Physical Therapy Evaluation/Tx during INPT Stay. Encouraged upright/OOB and (I) mobility in room and on Unit. Educated Patient NOT to stand or mobilize without Staff Assist to minimize fall risk and improve safety. Patient up in chair with call light in reach. 05/22/2024 6 Clicks Basic Mobility PT Difficulty turning over in bed 4 Difficulty sitting down and standing up from a chair with arms 4 Difficulty moving from lying on back to sitting on the side of the bed 4 Help from another person moving to and from bed to a chair 4 Help from another person to walk in hospital room 3 Help from another person climbing 3-5 steps with a railing 3 PT 6 Clicks Score 22 6 Click Score Guidelines: 1 - Total = Requires total assistance, or cannot do at all. 2 - A lot = Requires a lot of help (maximun to moderate assistance) Can use assistive devices. 3 - A little = Requires a little help (supervision, minimal assistance) Can use assistive devices. 4 - None = Does not require any help and does the activity independently. Can use assistive devices. Progressive Mobility Protocol Score: Level 4: Ambulatory in room/halls ASSESSMENT: Valencia Brooks is a 83 year old yo male admit 05.21.24 with Intraabdominal Abscess; now s/p IR Drain Placement. Patient presents at baseline (I) level of functional mobility this. No overt motor or balance deficits are identified Homegoing is functionally appropriate plan this date or at MD discretion. No further Acute PT needs Thank you for Consult PLAN OF CARE: D/C Acute PT this date The evaluation findings and treatment plan were discussed with the patient/family The patient/family indicated understanding and agreement with the plan. Reyna Elam, PT, MPT (A) [phone] *Secure Chat with Questions NA = Not Assessed, I = Independent, HI = Modified Independent, Sup = Supervised, Set up = Physical Assistance for Set-up Only, Min = Minimal Assistance, Mod = Moderate Assistance, Max = Max assistance; Dep = Dependent; AROM = Active Range of Motion; PROM = Passive Range of Motion; MMT = Manual Muscle Test; LE = Lower Extremity documented in this encounter [facility] 05-23-2024 Note OCCUPATIONAL THERAPY PROGRESS SUMMARY Patient seen from 09:00 to 09:14 on 5E unit for 14 minute treatment. SUBJECTIVE: Patient Subjective/Goals It feels good to be up and moving. I have a lot of help from medical people at home. (Re: family members) OBJECTIVE: Pain: No pain reported or noted Pain Relief Interventions Implemented: None required; No pain at this time Appearance/Behavior: Semi-supine in bed, personal pant, hospital gown x2, IR drain, PIV (hep locked), cooperative, pleasant Cognition: A AND Ox3 UE Status: (B) UE AROM and strength WFL for completion of ADLs Self Care: Assistance Level NA Dep Max Mod Min CG CS DS HI I Set-Up Cues Comment Feeding x Grooming/ Hygiene x Oral hygiene and hand washing standing at sink level Bathing: Upper Body x Bathing: Lower Body x Dressing: Upper Body x Dressing: Lower Body x Doff/don socks while seated EOB via figure-4 technique Toileting x Toilet Transfers x Bed Transfer x Sit to stand from EOB without AD Stand to sit in bedside chair Bed Mobility x Semi-supine to seated EOB Functional Mobility x Pt ambulated short functional household distance without AD with DS. No overt LOB noted, mildly unsteady - pt reports baseline level. Patient seated in bedside chair at end of session with all needs within reach. Instructed NOT to mobilize without staff assist. Encouraged to remain OOB for a minimum of one hour, verbalized understanding. Endurance for Self Care: Good Patient/Family Education: Instructed Patient in roles of therapy. DME: With Patients permission ordered no equipment via Guanri Order. If any questions contact [facility] DME Provider at [phone]. 05/23/2024 6 Clicks Daily Activity OT Help from another person Eating meals 4 Help from another person taking care of personal grooming 4 Help from another person bathing 3 Help from another person putting on and taking off regular upper body clothing 4 Help from another person putting on and taking off regular lower body clothing 4 Help from another person toileting 4 OT 6 Clicks Score 23 6 Click Score Guidelines: 1 - Unable = Total/Dependent Assist 2 - A lot = Max/Moderate Assist 3 - A little = Minimum/Contact Guard Assist/Supervision 4 - Non = Modified Graham/Independent ASSESSMENT: ASSESSMENT: Patient is functionally appropriate for discharge home once medically cleared. No further Occupational Therapy Services reccommended at this time. Goals (to be achieved by discharge from acute care): ALL GOALS MET Patient will perform grooming with Modified Independent Patient will dress lower body with Modified Independent Patient will perform bathing with Modified Independent Patient will perform toileting with Modified Independent Patient will perform bed transfers with Modified Independent PLAN: Patient will be discharged from acute OT services. Patient functioning at baseline level with all goals met. Oanh Valentine??? OTR/L NA = Not Assessed, I = Independent, HI = Modified Independent, Sup = Supervised, Set up = Physical Assistance for Set-up Only, Min = Minimal Assistance, Mod = Moderate Assistance, Max = Max assistance; Dep = Dependent; AROM = Active Range of Motion;PROM=Passive Range of Motion; MMT = Manual Muscle Test; Shld= Shoulder; Add = Adduction; Abd = Abduction [facility] Consult note Associated Order (s): IP OCCUPATIONAL THERAPY SERVICE REQUEST OCCUPATIONAL THERAPY INITIAL EVALUATION Patient seen from 1332 to 1340 on GC5E unit for 8 minutes. Admit Date: 05/21/2024 2:27 PM Reason for Admit: 83 y/o male presenting as transfer from OS for intraabdominal abscess; patient with recent cholecystectomy on 05/04/24 (Dr. Bass) Precautions/Activity Order: Moderate Falls Full Code Regular Diet Progressive Mobility Procedures this admit: 05/22/24: CT guided intraabdominal drain placement with moderate sedation Past Medical and Surgical History: PMH: No past medical history on file. PSH: No past surgical history on file. SUBJECTIVE: Patient Subjective: I was hoping to go home today, I live an hour and a half away. Patient Identified Goal(s): return to home. Home Living Situation Prior Functional Status: Independent with Activities of Daily Living Independent Ambulation with no AD Independent with Instrumental Activities of Daily Living Girlfriend provides transportation 1 fall in past 6 months, fainted prior to admission Assistance Available at Home: Lives with his girlfriend who can provide 24/7 Patient lives in a trailer with 3-4 BERNABE + rail. Full Bathroom on 1 level. Bedroom on 1 level. Equipment available at home: none OBJECTIVE: Pt's son and girlfriend present throughout session with pt's permission. Patient Identification: patient verbalizing his/her name and date of . Risks and benefits of occupational therapy: Patient informed of risks and benefits of treatment Appearance: seated EOB at onset, hospital gown, IV hep locked, IR drain (found disconnected - reattached by staff) Alertness: WFL Affect: WNL Cooperation/Behavior: Appropriate dialogue with therapist and Pleasant and cooperative Communication: WFL Pain: Pain rating: mild/10, Location: drain incision site Pain Relief Interventions Implemented: Positioning Self Care: Assistance Level Dep Max Mod Min CG CS DS HI I Set-Up Comment Feeding X Grooming/Hygiene X Anticipate standing at sink level Bathing:UB X Anticipate Bathing:LB X Anticipate Dressing:UB X Gown mgmt Dressing: LB X Toileting X Declines urgency during session, pt reports he has toileted since admission to floor w/ no assist Transfers/Bed Mobility: Assistance Level Dep Max Mod Min CG CS DS HI I Set-Up Comment Toilet Transfers Bed Transfers X Sit <> stand EOB to no AD Bed Mobility X Pt seated EOB at onset, performed indep per patient report Functional Mobility X Ambulates greater than household distance with RW, mildly unsteady with no overt LOB Patient remained seated EOB at end of session. Call benavides and telephone within reach. RN aware of patient location and mobility status. Patient instructed to call RN assist for all mobility. Endurance for Self Care: Good Static Sitting Balance: WFL Dynamic Sitting Balance: WFL UE Motor: not formally assessed however BUE appear WFL for ADL Vision/Perception: WFL Cognition: Orientation: Oriented to person, place, and date Follows Commands: WFL Attention: WNL Memory: WFL Problem Solving: WFL Safety/Judgement: WFL Sequencing: WFL Other Specialized Tests: None Patient/Family Education: Instructed patient in roles of therapy. DME: With Patients permission ordered no equipment via Guanri Order. If any questions contact [facility] DME Provider at [phone]. 05/22/2024 6 Clicks Daily Activity OT Help from another person Eating meals 4 Help from another person taking care of personal grooming 4 Help from another person bathing 3 Help from another person putting on and taking off regular upper body clothing 4 Help from another person putting on and taking off regular lower body clothing 3 Help from another person toileting 3 OT 6 Clicks Score 21 6 Click Score Guidelines: 1 - Unable = Total/Dependent Assist 2 - A lot = Max/Moderate Assist 3 - A little = Minimum/Contact Guard Assist/Supervision 4 - Non = Modified Graham/Independent ASSESSMENT: Patient is functionally appropriate for discharge home once medically cleared. Will continue to follow patient while in hospital as appropriate. Rehabilitation Potential: Good Problem List: decreased ADLs, decreased endurance, decreased functional transfers/mobility, impaired balance, decreased home management tasks/IADLs, and decreased functional activity tolerance Goals (to be achieved by discharge from acute care): Patient will perform grooming with Modified Independent Patient will dress lower body with Modified Independent Patient will perform bathing with Modified Independent Patient will perform toileting with Modified Independent Patient will perform bed transfers with Modified Independent PLAN: Valencia Brooks will be seen 1-3 times a week. Treatment to include: functional mobility training, ADL retraining, functional endurance activities, home management retraining, functional task simulation, adaptive equipment / compensatory strategy training, patient / family education and discharge planning, referral to appropriate support services, and pain Management able to discuss the evaluation findings and treatment plan with the patient/family. The patient/family did participate in the development of plan and goals. Shelby Mazariegos, MOT, OTR/L NA = Not Assessed, I = Independent, HI = Modified Independent, Sup = Supervised, Set up = Physical Assistance for Set-up Only, Min = Minimal Assistance, Mod = Moderate Assistance, Max = Max assistance; Dep = Dependent; AROM = Active Range of Motion;PROM=Passive Range of Motion; MMT = Manual Muscle Test; UB = Upper Body; LB = Lower Body [facility] 05-22-2024 Note OCCUPATIONAL THERAPY INITIAL EVALUATION Patient seen from 1332 to 1340 on GC5E unit for 8 minutes. Admit Date: 05/21/2024 2:27 PM Reason for Admit: 83 y/o male presenting as transfer from OSH for intraabdominal abscess; patient with recent cholecystectomy on 05/04/24 (Dr. Bass) Precautions/Activity Order: Moderate Falls Full Code Regular Diet Progressive Mobility Procedures this admit: 05/22/24: CT guided intraabdominal drain placement with moderate sedation Past Medical and Surgical History: PMH: No past medical history on file. PSH: No past surgical history on file. SUBJECTIVE: Patient Subjective: I was hoping to go home today, I live an hour and a half away. Patient Identified Goal(s): return to home. Home Living Situation Prior Functional Status: Independent with Activities of Daily Living Independent Ambulation with no AD Independent with Instrumental Activities of Daily Living Girlfriend provides transportation 1 fall in past 6 months, fainted prior to admission Assistance Available at Home: Lives with his girlfriend who can provide 16/11 Patient lives in a trailer with 3-4 BERNABE + rail. Full Bathroom on 1 level. Bedroom on 1 level. Equipment available at home: none OBJECTIVE: Pt's son and girlfriend present throughout session with pt's permission. Patient Identification: patient verbalizing his/her name and date of . Risks and benefits of occupational therapy: Patient informed of risks and benefits of treatment Appearance: seated EOB at onset, hospital gown, IV hep locked, IR drain (found disconnected - reattached by staff) Alertness: WFL Affect: WNL Cooperation/Behavior: Appropriate dialogue with therapist and Pleasant and cooperative Communication: WFL Pain: Pain rating: mild/10, Location: drain incision site Pain Relief Interventions Implemented: Positioning Self Care: Assistance Level Dep Max Mod Min CG CS DS HI I Set-Up Comment Feeding X Grooming/Hygiene X Anticipate standing at sink level Bathing:UB X Anticipate Bathing:LB X Anticipate Dressing:UB X Gown mgmt Dressing: LB X Toileting X Declines urgency during session, pt reports he has toileted since admission to floor w/ no assist Transfers/Bed Mobility: Assistance Level Dep Max Mod Min CG CS DS HI I Set-Up Comment Toilet Transfers Bed Transfers X Sit <> stand EOB to no AD Bed Mobility X Pt seated EOB at onset, performed indep per patient report Functional Mobility X Ambulates greater than household distance with RW, mildly unsteady with no overt LOB Patient remained seated EOB at end of session. Call benavides and telephone within reach. RN aware of patient location and mobility status. Patient instructed to call RN assist for all mobility. Endurance for Self Care: Good Static Sitting Balance: WFL Dynamic Sitting Balance: WFL UE Motor: not formally assessed however BUE appear WFL for ADL Vision/Perception: WFL Cognition: Orientation: Oriented to person, place, and date Follows Commands: WFL Attention: WNL Memory: WFL Problem Solving: WFL Safety/Judgement: WFL Sequencing: WFL Other Specialized Tests: None Patient/Family Education: Instructed patient in roles of therapy. DME: With Patients permission ordered no equipment via Guanri Order. [facility] [phone]. 05/22/2024 6 Clicks Daily Activity OT Help from another person Eating meals 4 Help from another person taking care of personal grooming 4 Help from another person bathing 3 Help from another person putting on and taking off regular upper body clothing 4 Help from another person putting on and taking off regular lower body clothing 3 Help from another person toileting 3 OT 6 Clicks Score 21 6 Click Score Guidelines: 1 - Unable = Total/Dependent Assist 2 - A lot = Max/Moderate Assist 3 - A little = Minimum/Contact Guard Assist/Supervision 4 - Non = Modified Graham/Independent ASSESSMENT: Patient is functionally appropriate for discharge home once medically cleared. Will continue to follow patient while in hospital as appropriate. Rehabilitation Potential: Good Problem List: decreased ADLs, decreased endurance, decreased functional transfers/mobility, impaired balance, decreased home management tasks/IADLs, and decreased functional activity tolerance Goals (to be achieved by discharge from acute care): Patient will perform grooming with Modified Independent Patient will dress lower body with Modified Independent Patient will perform bathing with Modified Independent Patient will perform toileting with Modified Independent Patient will perform bed transfers with Modified Independent PLAN: Valencia Brooks will be seen 1-3 times a week. Treatment to include: functional mobility training, ADL retraining, functional endurance activities, home management retraining, functional task simulation, adaptive equipment / compensatory strateg (more content not included)... [facility] 05-22-2024 Consult note Associated Order (s): IP PHYSICAL THERAPY SERVICE REQUEST PHYSICAL THERAPY ACUTE EVALUATION Referral received, chart reviewed. Patient seen from 132 to 141 on GC5E unit for 9 minutes. Admit date/time: 05/21/2024 2:27 PM Reason for Admit: 83 yo male with Dx of Intraabdominal Abscess. Cholecystectomy performed by Dr. Bass on 05/04/24, had his KELVIN drain removed 4 days PTS Procedures this admit: 05/22/24: CT guided intraabdominal drain placement with moderate sedation Past Medical and Surgical History: No past medical history on file. No past surgical history on file. Precautions: Mod Falls Risk Full Code Regular Diet Progressive Mobility Protocol Identification was verified by patient verbalizing his/her name and date of . Risks and Benefits of physical therapy: Patient/Family informed of risks and benefits of treatment (Son and Girlfriend present at bedside) SUBJECTIVE: Patient Subjective: I fell last week because I passed out. But I never fall otherwise. Patient Identified Goal(s): I want to go home today. 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 0 steps to bedroom/bathroom Assistance available: Live with Supportive GF We are always together Adult Son is present and supportive Equipment available: None OBJECTIVE: Appearance: Seated at EOB, Hospital gown x 2, IR Drain intact. Behavior: Alert, pleasant, cooperative, motivated Oriented x 3; demonstrates good insight to situation/Dx Follows simple - step commands consistently Pain: Abdominal soreness Pain Scale: 3 /10 Pain Relief Interventions Implemented: Positioning Relaxation Training Passive ROM: Grossly WFL x 4 extremities Strength/Active ROM: Symmetrical (B) Hemibody and without overt motor deficit identified (B) LE grossly 4/5 throughout. (+) age-related generalized deconditioning is noted Mobility: Bed Mobility not viewed as patient is seated EOB, reports (I) Seated Balance at EOB: (I) Sit to stand: no device: (I) Patient ambulates 150+ feet, no device: distant (S) overall. Slow, mildly unsteady gait pattern without overt ataxia/antalgia, no LOB Patient ascends/descends 4 stairs with 1 rail: reciprocal pattern: (S) Stand to sit in BS chair: (I) Endurance: WFL Patient Education: Educated Patient in role of Physical Therapy Evaluation/Tx during INPT Stay. Encouraged upright/OOB and (I) mobility in room and on Unit. Educated Patient NOT to stand or mobilize without Staff Assist to minimize fall risk and improve safety. Patient up in chair with call light in reach. 05/22/2024 6 Clicks Basic Mobility PT Difficulty turning over in bed 4 Difficulty sitting down and standing up from a chair with arms 4 Difficulty moving from lying on back to sitting on the side of the bed 4 Help from another person moving to and from bed to a chair 4 Help from another person to walk in hospital room 3 Help from another person climbing 3-5 steps with a railing 3 PT 6 Clicks Score 22 6 Click Score Guidelines: 1 - Total = Requires total assistance, or cannot do at all. 2 - A lot = Requires a lot of help (maximun to moderate assistance) Can use assistive devices. 3 - A little = Requires a little help (supervision, minimal assistance) Can use assistive devices. 4 - None = Does not require any help and does the activity independently. Can use assistive devices. Progressive Mobility Protocol Score: Level 4: Ambulatory in room/halls ASSESSMENT: Valencia Brooks is a 83 year old yo male admit 05.21.24 with Intraabdominal Abscess; now s/p IR Drain Placement. Patient presents at baseline (I) level of functional mobility this. No overt motor or balance deficits are identified Homegoing is functionally appropriate plan this date or at MD discretion. No further Acute PT needs Thank you for Consult PLAN OF CARE: D/C Acute PT this date The evaluation findings and treatment plan were discussed with the patient/family The patient/family indicated understanding and agreement with the plan. Reyna Elam, PT, MPT B) [phone] *Secure Chat with Questions NA = Not Assessed, I = Independent, HI = Modified Independent, Sup = Supervised, Set up = Physical Assistance for Set-up Only, Min = Minimal Assistance, Mod = Moderate Assistance, Max = Max assistance; Dep = Dependent; AROM = Active Range of Motion; PROM = Passive Range of Motion; MMT = Manual Muscle Test; LE = Lower Extremity [facility] 05-22-2024 Note PHYSICAL THERAPY ACU TE EVALUATION Referral received, chart reviewed. Patient seen from 132 to 141 on GC5E unit for 9 minutes. Admit date/time: 05/21/2024 2:27 PM Reason for Admit: 83 yo male with Dx of Intraabdominal Abscess. Cholecystectomy performed by Dr. Bass on 05/04/24, had his KELVIN drain removed 4 days PTS Procedures this admit: 05/22/24: CT guided intraabdominal drain placement with moderate sedation Past Medical and Surgical History: No past medical history on file. No past surgical history on file. Precautions: Mod Falls Risk Full Code Regular Diet Progressive Mobility Protocol Identification was verified by patient verbalizing his/her name and date of . Risks and Benefits of physical therapy: Patient/Family informed of risks and benefits of treatment (Son and Girlfriend present at bedside) SUBJECTIVE: Patient Subjective: I fell last week because I passed out. But I never fall otherwise. Patient Identified Goal(s): I want to go home today. 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 0 steps to bedroom/bathroom Assistance available: Live with Supportive GF We are always together Adult Son is present and supportive Equipment available: None OBJECTIVE: Appearance: Seated at EOB, Hospital gown x 2, IR Drain intact. Behavior: Alert, pleasant, cooperative, motivated Oriented x 3; demonstrates good insight to situation/Dx Follows simple - step commands consistently Pain: Abdominal soreness Pain Scale: 3 /10 Pain Relief Interventions Implemented: Positioning Relaxation Training Passive ROM: Grossly WFL x 4 extremities Strength/Active ROM: Symmetrical (B) Hemibody and without overt motor deficit identified (B) LE grossly 4/5 throughout. (+) age-related generalized deconditioning is noted Mobility: Bed Mobility not viewed as patient is seated EOB, reports (I) Seated Balance at EOB: (I) Sit to stand: no device: (I) Patient ambulates 150+ feet, no device: distant (S) overall. Slow, mildly unsteady gait pattern without overt ataxia/antalgia, no LOB Patient ascends/descends 4 stairs with 1 rail: reciprocal pattern: (S) Stand to sit in BS chair: (I) Endurance: WFL Patient Education: Educated Patient in role of Physical Therapy Evaluation/Tx during INPT Stay. Encouraged upright/OOB and (I) mobility in room and on Unit. Educated Patient NOT to stand or mobilize without Staff Assist to minimize fall risk and improve safety. Patient up in chair with call light in reach. 05/22/2024 6 Clicks Basic Mobility PT Difficulty turning over in bed 4 Difficulty sitting down and standing up from a chair with arms 4 Difficulty moving from lying on back to sitting on the side of the bed 4 Help from another person moving to and from bed to a chair 4 Help from another person to walk in hospital room 3 Help from another person climbing 3-5 steps with a railing 3 PT 6 Clicks Score 22 6 Click Score Guidelines: 1 - Total = Requires total assistance, or cannot do at all. 2 - A lot = Requires a lot of help (maximun to moderate assistance) Can use assistive devices. 3 - A little = Requires a little help (supervision, minimal assistance) Can use assistive devices. 4 - None = Does not require any help and does the activity independently. Can use assistive devices. Progressive Mobility Protocol Score: Level 4: Ambulatory in room/halls ASSESSMENT: Valencia Brooks is a 83 year old yo male admit 05.21.24 with Intraabdominal Abscess; now s/p IR Drain Placement. Patient presents at baseline (I) level of functional mobility this. No overt motor or balance deficits are identified Homegoing is functionally appropriate plan this date or at MD discretion. No further Acute PT needs Thank you for Consult PLAN OF CARE: D/C Acute PT this date The evaluation findings and treatment plan were discussed with the patient/family The patient/family indicated understanding and agreement with the plan. Reyna Elam, PT, MPT (B) [phone] *Secure Chat with Questions NA = Not Assessed, I = Independent, HI = Modified Independent, Sup = Supervised, Set up = Physical Assistance for Set-up Only, Min = Minimal Assistance, Mod = Moderate Assistance, Max = Max assistance; Dep = Dependent; AROM = Active Range of Motion; PROM = Passive Range of Motion; MMT = Manual Muscle Test; LE = Lower Extremity [facility] 05-22-2024 Note POST-PROCEDURE NOTE Procedure: CT guided drain placement with moderate sedation Pre-operative Diagnosis: Intraabdominal fluid collection Post-operative Diagnosis: same Attending: Thuan Burgos MD Felt Cementer: Hong Cortez MD A TIME OUT was performed prior to the procedure using active communication to verify correct patient, procedure, and site: Yes Intraoperative Medications: Medications Medication Event Details Admin User Admin Time midazolam (VERSED) 2 MG/2ML injection Medication Given Dose: 1 mg; Route: Intravenous Push Ly Allred RN 05/22/2024 10:37 AM fentaNYL (SUBLIMAZE) 100 MCG/2ML injection Medication Given Dose: 50 mcg; Route: Intravenous Push Ly Allred RN 05/22/2024 10:37 AM fentaNYL (SUBLIMAZE) 100 MCG/2ML injection Medication Given Dose: 50 mcg; Route: Intravenous Push Ly Allred, LYLE 05/22/2024 10:44 AM Complications: None Specimens: 30ccs of serosanguinous fluid was aspirated and sent for analysis Estimated Blood Loss: less than 10 cc Post Procedure Pain Ratin/10 Findings: Technically successful drain placement Plan: Remainder of plan per primary. Please see procedure dictation in EPIC/PACS for full procedural details. Hong Cortez MD Radiology [facility] 05-22-2024 Surgery Postoperative evaluation and management note POST-PROCEDURE NOTE Procedure: CT guided drain placement with moderate sedation Pre-operative Diagnosis: Intraabdominal fluid collection Post-operative Diagnosis: same Attending: Thuan Burgos MD Felt Cementer: Hong Cortez MD A TIME OUT was performed prior to the procedure using active communication to verify correct patient, procedure, and site: Yes Intraoperative Medications: Medications Medication Event Details Admin User Admin Time midazolam (VERSED) 2 MG/2ML injection Medication Given Dose: 1 mg; Route: Intravenous Push Ly Allred RN 05/22/2024 10:37 AM fentaNYL (SUBLIMAZE) 100 MCG/2ML injection Medication Given Dose: 50 mcg; Route: Intravenous Ly Cabello RN 05/22/2024 10:37 AM fentaNYL (SUBLIMAZE) 100 MCG/2ML injection Medication Given Dose: 50 mcg; Route: Intravenous Ly Cabello RN 05/22/2024 10:44 AM Complications: None Specimens: 30ccs of serosanguinous fluid was aspirated and sent for analysis Estimated Blood Loss: less than 10 cc Post Procedure Pain Ratin/10 Findings: Technically successful drain placement Plan: Remainder of plan per primary. Please see procedure dictation in [facility]/PACS for full procedural details. Hong Cortez MD Radiology Cosigned by Thuan Burgos MD at 05/26/2024 8:51 AM EST [facility] 05-22-2024 Miscellaneous Notes POST-PROCEDURE NOTE Procedure: CT guided drain placement with moderate sedation Pre-operative Diagnosis: Intraabdominal fluid collection Post-operative Diagnosis: same Attending: Thuan Burgos MD Felt Cementer: Hong Cortez MD A TIME OUT was performed prior to the procedure using active communication to verify correct patient, procedure, and site: Yes Intraoperative Medications: Medications Medication Event Details Admin User Admin Time midazolam (VERSED) 2 MG/2ML injection Medication Given Dose: 1 mg; Route: Intravenous Push Ly Allred RN 05/22/2024 10:37 AM fentaNYL (SUBLIMAZE) 100 MCG/2ML injection Medication Given Dose: 50 mcg; Route: Intravenous Push Ly Allred RN 05/22/2024 10:37 AM fentaNYL (SUBLIMAZE) 100 MCG/2ML injection Medication Given Dose: 50 mcg; Route: Intravenous Ly Cabello RN 05/22/2024 10:44 AM Complications: None Specimens: 30ccs of serosanguinous fluid was aspirated and sent for analysis Estimated Blood Loss: less than 10 cc Post Procedure Pain Ratin/10 Findings: Technically successful drain placement Plan: Remainder of plan per primary. Please see procedure dictation in [facility]/PACS for full procedural details. Hong Cortez MD Radiology Cosigned by Thuan Burgos MD at 05/26/2024 8:51 AM EST documented in this encounter [facility] 05-22-2024 History and physical note MODIFIED HISTORY AND PHYSICAL: HISTORY: Procedure: CT guided intraabdominal drain placement with moderate sedation Indication: intraabdominal fluid collection No past medical history on file. Diabetes: no Sleep Apnea: no Excessive Obesity: no Hepatic Disease: no Renal Disease: no Substance Abuse History: History Drug Use Not on file No current facility-administered medications for this encounter. No current outpatient medications on file. Facility-Administered Medications Ordered in Other Encounters Medication Dose Route Frequency Last Rate Last Admin piperacillin-tazobactam in D5W (ZOSYN) 3,375 mg in dextrose 50 mL ivpb 3.375 g Intravenous Q6H Antibiotic 100 mL/hr at 05/22/24 0932 3,375 mg at 05/22/24 0932 acetaminophen (TYLENOL) tablet 650 mg Oral q6h 650 mg at 05/22/24 0617 oxyCODONE immediate release tablet 5 mg Oral Q4H PRN HYDROmorphone (DILAUDID) 0.2 MG/ML injection 0.4 mg 0.4 mg Intravenous Push Q4H PRN Allergies: Patient has no allergy information on record. PHYSICAL EXAM: Blood pressure 127/68, pulse 83, resp. rate 16, SpO2 95%. Lungs: Clear to auscultation bilaterally Heart: Regular rate and rhythm Pertinent Findings: N/A Labs Reviewed? Yes Recent Labs: Result for specified components in the past 45 days Component Date/Time Result Units Hemoglobin 05/22/2024 6:34 AM 8.0 g/dL Hematocrit 05/22/2024 6:34 AM 26.1 % Platelet 05/22/2024 6:34 AM 282 K/uL aPTT 05/21/2024 7:34 PM 26 sec Protime 05/22/2024 6:34 AM 13.2 sec INR 05/22/2024 6:34 AM 1.18 FXAUN --- not found ANTIFXALMWHE --- not found Creatinine 05/22/2024 6:34 AM 0.74 mg/dL Planned Sedation: Moderate Planned Sedation Medications: VERSED (midazolam) and fentanyl ASA Classification: Class II: Individual with one system well controlled disease. Disease does not affect daily living. Mallampati Airway Assessment: Class II Faucial pillars, soft palate visible Patient or family history of adverse reactions involving sedation/anesthesia: No patient history of adverse reaction PRE-PROCEDURE VERIFICATION: Site of Procedure: right Site Marked pre-procedure: Yes Pre-Procedure Pain Ratin/10 Advanced Directives (Living will, health care power of compliance attorney): none Patient Recent Code Status: Full Code Code Status For This Procedure: Full Code Hong Cortez MD Radiology [facility] Work Phone: 05-22-2024 Note MODIFIED HISTORY AND PHYSICAL: HISTORY: Procedure: CT guided intraabdominal drain placement with moderate sedation Indication: intraabdominal fluid collection No past medical history on file. Diabetes: no Sleep Apnea: no Excessive Obesity: no Hepatic Disease: no Renal Disease: no Substance Abuse History: History Drug Use Not on file No current facility-administered medications for this encounter. No current outpatient medications on file. Facility-Administered Medications Ordered in Other Encounters Medication Dose Route Frequency Last Rate Last Admin piperacillin-tazobactam in D5W (ZOSYN) 3,375 mg in dextrose 50 mL ivpb 3.375 g Intravenous Q6H Antibiotic 100 mL/hr at 05/22/24 0932 3,375 mg at 05/22/24 0932 acetaminophen (TYLENOL) tablet 650 mg Oral q6h 650 mg at 05/22/24 0617 oxyCODONE immediate release tablet 5 mg Oral Q4H PRN HYDROmorphone (DILAUDID) 0.2 MG/ML injection 0.4 mg 0.4 mg Intravenous Push Q4H PRN Allergies: Patient has no allergy information on record. PHYSICAL EXAM: Blood pressure 127/68, pulse 83, resp. rate 16, SpO2 95%. Lungs: Clear to auscultation bilaterally Heart: Regular rate and rhythm Pertinent Findings: N/A Labs Reviewed? Yes Recent Labs: Result for specified components in the past 45 days Component Date/Time Result Units Hemoglobin 05/22/2024 6:34 AM 8.0 g/dL Hematocrit 05/22/2024 6:34 AM 26.1 % Platelet 05/22/2024 6:34 AM 282 K/uL aPTT 05/21/2024 7:34 PM 26 sec Protime 05/22/2024 6:34 AM 13.2 sec INR 05/22/2024 6:34 AM 1.18 FXAUN --- not found ANTIFXALMWHE --- not found Creatinine 05/22/2024 6:34 AM 0.74 mg/dL Planned Sedation: Moderate Planned Sedation Medications: VERSED (midazolam) and fentanyl ASA Classification: Class II: Individual with one system well controlled disease. Disease does not affect daily living. Mallampati Airway Assessment: Class II Faucial pillars, soft palate visible Patient or family history of adverse reactions involving sedation/anesthesia: No patient history of adverse reaction PRE-PROCEDURE VERIFICATION: Site of Procedure: right Site Marked pre-procedure: Yes Pre-Procedure Pain Ratin/10 Advanced Directives (Living will, health care power of compliance attorney): none Patient Recent Code Status: Full Code Code Status For This Procedure: Full Code Hong Cortez MD Radiology [facility] 05-22-2024 History and physical note MODIFIED HISTORY AND PHYSICAL: HISTORY: Procedure: CT guided intraabdominal drain placement with moderate sedation Indication: intraabdominal fluid collection No past medical history on file. Diabetes: no Sleep Apnea: no Excessive Obesity: no Hepatic Disease: no Renal Disease: no Substance Abuse History: History Drug Use Not on file No current facility-administered medications for this encounter. No current outpatient medications on file. Facility-Administered Medications Ordered in Other Encounters Medication Dose Route Frequency Last Rate Last Admin piperacillin-tazobactam in D5W (ZOSYN) 3,375 mg in dextrose 50 mL ivpb 3.375 g Intravenous Q6H Antibiotic 100 mL/hr at 05/22/24 0932 3,375 mg at 05/22/24 0932 acetaminophen (TYLENOL) tablet 650 mg Oral q6h 650 mg at 05/22/24 0617 oxyCODONE immediate release tablet 5 mg Oral Q4H PRN HYDROmorphone (DILAUDID) 0.2 MG/ML injection 0.4 mg 0.4 mg Intravenous Push Q4H PRN Allergies: Patient has no allergy information on record. PHYSICAL EXAM: Blood pressure 127/68, pulse 83, resp. rate 16, SpO2 95%. Lungs: Clear to auscultation bilaterally Heart: Regular rate and rhythm Pertinent Findings: N/A Labs Reviewed? Yes Recent Labs: Result for specified components in the past 45 days Component Date/Time Result Units Hemoglobin 05/22/2024 6:34 AM 8.0 g/dL Hematocrit 05/22/2024 6:34 AM 26.1 % Platelet 05/22/2024 6:34 AM 282 K/uL aPTT 05/21/2024 7:34 PM 26 sec Protime 05/22/2024 6:34 AM 13.2 sec INR 05/22/2024 6:34 AM 1.18 FXAUN --- not found ANTIFXALMWHE --- not found Creatinine 05/22/2024 6:34 AM 0.74 mg/dL Planned Sedation: Moderate Planned Sedation Medications: VERSED (midazolam) and fentanyl ASA Classification: Class II: Individual with one system well controlled disease. Disease does not affect daily living. Mallampati Airway Assessment: Class II Faucial pillars, soft palate visible Patient or family history of adverse reactions involving sedation/anesthesia: No patient history of adverse reaction PRE-PROCEDURE VERIFICATION: Site of Procedure: right Site Marked pre-procedure: Yes Pre-Procedure Pain Ratin/10 Advanced Directives (Living will, health care power of compliance attorney): none Patient Recent Code Status: Full Code Code Status For This Procedure: Full Code Hong Cortez MD Radiology documented in this encounter [facility] 05-21-2024 Emergency department Note Transition of Care; Hand off Note Is admission screen complete? No Special/Social Considerations: No Mobility: poor Continence: WNL Radiology Testing: CT NEURO IMAGE IMPORT(ARIEL) Final Result CT BODY IMAGE IMPORT(ARIEL) Final Result CT NEURO IMAGE IMPORT(ARIEL) Final Result XA INTERVENTIONAL RADIOLOGY PROCEDURE SERVICE (Results Pending) Code Status: Full Code AGE: [age] year old SEX: male WEIGHT: no weight Chief Complaint: Chief Complaint Patient presents with CONSULT, NEW GI Pt transferred from outside hospital for surgical consult for abdominal abscess. Admitting Diagnosis: Clinical Impression Diagnosis Comment Postprocedural intraabdominal abscess (HCC) [T81.43XA, K65.1] O2 requirement: no Oxygen Therapy: Oxygen Therapy O2 Device: Room air IV/LDA access: Peripheral IV Access: 05/21/24 1448 Left Antecubital Present on Arrival to Hospital (Active) Not on File Out of Reference Range ED Results Display - if a lab has no value displayed it is normal OR not it is not completed BASIC METABOLIC PANEL - Abnormal; Notable for the following components: Result Value Ref Range Glucose 115 (*) 74 - 109 mg/dL Calcium 8.2 (*) 8.6 - 10.3 mg/dL All other components within normal limits PROTHROMBIN TIME AND INR - Abnormal; Notable for the following components: INR 1.14 (*) 0.90 - 1.10 All other components within normal limits CBC WITH DIFFERENTIAL - Abnormal; Notable for the following components: WBC 12.3 (*) 4.5 - 11.5 K/uL RBC 3.42 (*) 4.50 - 5.90 M/uL Hemoglobin 7.9 (*) 13.9 - 16.3 g/dL Hematocrit 25.4 (*) 41.0 - 53.0 % MCV 75 (*) 80 - 100 fL MCH 23.1 (*) 26.0 - 34.0 pg MCHC 30.9 (*) 32.0 - 35.9 g/dL RDW-CV 20.0 (*) 11.5 - 14.5 % Neutrophils 86.1 (*) 31.0 - 76.0 % Neutrophil # 10.57 (*) 1.50 - 8.00 K/uL Lymphocytes 7.2 (*) 24.0 - 44.0 % Lymphocytes # 0.88 (*) 1.00 - 4.80 K/uL MDW 24 (*) <=20 All other components within normal limits PARTIAL THROMBOPLASTIN TIME - Normal COMPLETE BLOOD COUNT W/DIFF Narrative: The following orders were created for panel order COMPLETE BLOOD COUNT W/DIFF. Procedure Abnormality Status --------- ------ CBC WITH DIFFERENTIAL[[id number]] Abnormal Final result MANUAL DIFF AND MORPH[[id number]] Final result Please view results for these tests on the individual orders. TYPE AND SCREEN CONFIRMATION ABO/RH MANUAL DIFF AND MORPH No past medical history on file. Medications acetaminophen (TYLENOL) tablet (650 mg Oral Given 05/21/24 1650) oxyCODONE immediate release tablet (has no administration in time range) HYDROmorphone (DILAUDID) 0.2 MG/ML injection 0.4 mg (has no administration in time range) lactated ringers iv infusion (1,000 mL Intravenous IV New Bag 05/21/24 1716) piperacillin-tazobactam (ZOSYN) 3,375 mg in sodium chloride 10 mL IV push (0 mg Intravenous IV Stop 05/21/24 1655) No active isolations Vitals Recorded in This Encounter 05/21/2024 1436 05/21/2024 1900 05/21/2024 1913 05/21/2024 1919 BP: 128/73 113/64 -- 137/70 Pulse: 80 -- -- 84 Resp: 16 -- -- -- Temp: 99 F (37.2 C) -- -- -- Temp src: Oral -- -- -- SpO2: 94 % 94 % 95 % 95 % Any significant change from prior assessment: No Any new symptoms No Please contact RN Kath, [place]T [phone] LR fluid bag was leaking, paused fluid [facility] 05-21-2024 Emergency department Note Transition of Care; Hand off Note Is admission screen complete? No Special/Social Considerations: No Mobility: poor Continence: WNL Radiology Testing: CT NEURO IMAGE IMPORT(ARIEL) Final Result CT BODY IMAGE IMPORT(ARIEL) Final Result CT NEURO IMAGE IMPORT(ARIEL) Final Result XA INTERVENTIONAL RADIOLOGY PROCEDURE SERVICE (Results Pending) Code Status: Full Code AGE: [age] year old SEX: male WEIGHT: no weight Chief Complaint: Chief Complaint Patient presents with CONSULT, NEW GI Pt transferred from outside hospital for surgical consult for abdominal abscess. Admitting Diagnosis: Clinical Impression Diagnosis Comment Postprocedural intraabdominal abscess (HCC) [T81.43XA, K65.1] O2 requirement: no Oxygen Therapy: Oxygen Therapy O2 Device: Room air IV/LDA access: Peripheral IV Access: 05/21/24 1448 Left Antecubital Present on Arrival to Hospital (Active) Not on File Out of Reference Range ED Results Display - if a lab has no value displayed it is normal OR not it is not completed BASIC METABOLIC PANEL - Abnormal; Notable for the following components: Result Value Ref Range Glucose 115 (*) 74 - 109 mg/dL Calcium 8.2 (*) 8.6 - 10.3 mg/dL All other components within normal limits PROTHROMBIN TIME AND INR - Abnormal; Notable for the following components: INR 1.14 (*) 0.90 - 1.10 All other components within normal limits CBC WITH DIFFERENTIAL - Abnormal; Notable for the following components: WBC 12.3 (*) 4.5 - 11.5 K/uL RBC 3.42 (*) 4.50 - 5.90 M/uL Hemoglobin 7.9 (*) 13.9 - 16.3 g/dL Hematocrit 25.4 (*) 41.0 - 53.0 % MCV 75 (*) 80 - 100 fL MCH 23.1 (*) 26.0 - 34.0 pg MCHC 30.9 (*) 32.0 - 35.9 g/dL RDW-CV 20.0 (*) 11.5 - 14.5 % Neutrophils 86.1 (*) 31.0 - 76.0 % Neutrophil # 10.57 (*) 1.50 - 8.00 K/uL Lymphocytes 7.2 (*) 24.0 - 44.0 % Lymphocytes # 0.88 (*) 1.00 - 4.80 K/uL MDW 24 (*) <=20 All other components within normal limits PARTIAL THROMBOPLASTIN TIME - Normal COMPLETE BLOOD COUNT W/DIFF Narrative: The following orders were created for panel order COMPLETE BLOOD COUNT W/DIFF. Procedure Abnormality Status --------- ------ CBC WITH DIFFERENTIAL[[id number]] Abnormal Final result MANUAL DIFF AND MORPH[[id number]] Final result Please view results for these tests on the individual orders. TYPE AND SCREEN CONFIRMATION ABO/RH MANUAL DIFF AND MORPH No past medical history on file. Medications acetaminophen (TYLENOL) tablet (650 mg Oral Given 05/21/24 1650) oxyCODONE immediate release tablet (has no administration in time range) HYDROmorphone (DILAUDID) 0.2 MG/ML injection 0.4 mg (has no administration in time range) lactated ringers iv infusion (1,000 mL Intravenous IV New Bag 05/21/24 1716) piperacillin-tazobactam (ZOSYN) 3,375 mg in sodium chloride 10 mL IV push (0 mg Intravenous IV Stop 05/21/24 1655) No active isolations Vitals Recorded in This Encounter 05/21/2024 1436 05/21/2024 1900 05/21/2024 1913 05/21/20241918 BP: 128/73 113/64 -- 137/70 Pulse: 80 -- -- 84 Resp: 16 -- -- -- Temp: 99 F (37.2 C) -- -- -- Temp src: Oral -- -- -- SpO2: 94 % 94 % 95 % 95 % Any significant change from prior assessment: No Any new symptoms No Please contact RN Kath, EXT [id number] LR fluid bag was leaking, paused fluid Patient underwent a laparoscopic kyleigh May 04 2024 at OSH Transferred here due to abscess + tenderness/ pain RUQ He denies vomiting Last bowel movement 2 days ago Bowel sounds active He denies fever. Temp here 99 F Ajay Foy MD ATTENDING NOTE I saw and evaluated the patient. I personally obtained the godinez and critical portions of the history and physical exam. I reviewed the resident's documentation and discussed the patient with the resident. I agree with the resident's medical decision making as documented in the resident's note. Ajay Foy MD Images from the original note were not included. EMERGENCY DEPARTMENT - VISIT NOTE HISTORY OF PRESENT ILLNESS Chief Complaint Patient presents with CONSULT, NEW GI Pt transferred from outside hospital for surgical consult for abdominal abscess. 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 The history is provided by the Patient. Valencia Brooks is a 83 year old male presenting to the ED for intraabdominal abscess. Patient transferred from [facility] for intraabdominal abscess. Had cholecystectomy performed by Dr. Bass on 05/04/24, had his KELVIN drain removed 4 days ago. Presented to ED for concerns of large intraabdominal abscess, plan to transfer to [facility] for IR intervention. Patient states that his abdominal pain is well controlled at this time. Denies any additional symptoms. Last ate yesterday. Chart review: Seen by PCP on 05/18/24, noted incision sites seem well healed w/o signs of infection ------- PAST HISTORY Pertinent Past History: No past medical history on file. There is no problem list on file for this patient. Pertinent Social History: ----- PHYSICAL EXAM BP 128/73 Temp 99 F (37.2 C) (Oral) Resp 16 SpO2 94% Exam: Constitutional: Nursing triage notes reviewed, Vital signs reviewed, and Alert HENT: No facial abrasions or nasal swelling, no intraoral or lip lacerations or bleeding Eyes: Pupils equal round and reactive to light and Extraocular muscles intact Neck: Supple and No nuchal rigidity Lung: Clear to auscultation and No wheezing Cardiac: Regular rate and rhythm and No murmurs Abdomen: Soft, tender to RUQ, surgical scars appear well healed without associated drainage : No CVAT Back: No midline bony tenderness to thoracic/lumbar/sacral spines Ext: Full ROM all 4 extremities and Normal peripheral perfusion and pulses Neuro: Alert normally oriented Skin: No rash or lesion MEDICAL DECISION MAKING and ED COURSE Nursing triage and assessment notes reviewed and incorporated. Review of External (Non- ED) Notes: see HPI Independent Test Interpretation: see ED course Evaluated by EM attending Ajay Foy Course: ED Course as of 05/21/24 1559 Sun May 21, 2024 1540 Basic Metabolic Panel(!): Glucose 115(!) Sodium 138 Potassium 4.3 Carbon Dioxide 27 Chloride 102 BUN 11 Creatinine 0.73 Calcium 8.2(!) Anion Gap 13 Estimated GFR 91 Personal interpretation: no critical electrolyte abnormalities, renal function at baseline. [JM] 1553 COMPLETE BLOOD COUNT W/DIFF (RAPID RESPONSE LABS)(!): WBC 12.3(!) RBC 3.42(!) Hemoglobin 7.9(!) Hematocrit 25.4(!) MCV 75(!) MCH 23.1(!) MCHC 30.9(!) Platelet 299 RDW-CV% 20.0(!) MPV 8.7 MDW 24(!) Leukocytosis, normocytic anemia. No thrombocytopenia. [JM] ED Course User Index [JM] Sujit Steen, Assessment & Plan: 83-year-old male with a past medical history as noted above presenting today for concerns of postoperative complications. Was evaluated at outside hospital, where he was noted to have possible intra-abdominal abscess. Was transferred to [facility] for evaluation by surgery and central IR intervention. On arrival he was hemodynamically stable. Plan physical exam findings as noted above. Patient was nontoxic appearing, did have some moderate tenderness in the right upper quadrant. However, surgical scars appear well healed with no signs of soft tissue infection or dehiscence. Patient with dose of meropenem administered prior to transfer, did hold on additional antibiotics on arrival. Obtained preoperative labs. And interpreted as seen in ED course. Patient had imaging performed at outside hospital, and disc was provided and images were able to be downloaded by Radiology team. EGS was consulted come and evaluate the patient. As surgery was performed within the last 30 days, patient will be admitted to their service. Report was called, Dr. Gong is the accepting attending. IMPRESSION AND DISPOSITION Clinical Impression Diagnosis Comment Postprocedural intraabdominal abscess (HCC) [T81.43XA, K65.1] Disposition: Admitted to Floor: Surgery Service. Report called to GRACIE Holman, 1541 (05/21/24 1541) The patient has received a medical screening examination and within reasonable clinical confidence the patient was stabilized within the capabilities of the emergency department and requires admission / observation. Counseling: Spoke with the patient and discussed today s findings, in addition to providing specific details for the plan of care and expected course. They were given the opportunity to ask questions. This note was created with the assistance of speech recognition software. Sujit Steen DO Cosigned by Ajay Foy MD at 05/21/2024 6:06 PM EST documented in this encounter [facility] 05-21-2024 History and physical note Images from the original note were not included. [facility] DIVISION OF ACUTE CARE SURGERY EMERGENCY GENERAL SURGERY CONSULTATION, HISTORY & PHYSICAL Reason for consultation: intraabdominal collection s/p lap cholecystectomy on 05/04 HPI: Valencia Brooks 83 year old male with PMH of GERD (gastroesophageal reflux disease) and Hypothyroidism. PSH of Lap cholecystectomy on 05/04/2024. Patient is a transfer from OSH for intraabdominal abscess. Presented with abdominal pain. Denies any vomiting. PMH: There is no previous medical history on file. PSH: There is no previous surgical history on file. MEDS: Refer to medication list ALL: Not on File FH: No family history on file. SH: Social History Socioeconomic History Marital status: Review Of Systems: Skin: negative Eyes: negative review of symptoms Ears/Nose/Throat: negative Respiratory: negative symptoms (no cough, hemoptysis, SOB, CAMPUZANO, PND, wheezing) Cardiovascular: negative symptoms (No CP/Pressure/Tightness, palpitations, orthopnea, PND, SOB, CAMPUZANO, edema, WYATT or vision change) Gastrointestinal: negative symptoms (no anorexia, n/v, indigestion, or diarrhea) Positive for abdominal pain Genitourinary: no urinary symptoms Neurologic: negative symptoms (no syncope, seizures, weakness, gait problems, numbness, burning pain, tremors, or memory loss) negative (no arthritic pain, no joint swelling, no muscle weakness) Psychiatric: negative (no sleep disturbance, anxiety, memory loss, disorientation, inattention, feelings of depression) Hematologic/Lymphatic/Immunologi c: negative (no anemia, bleeding, bruising) Endocrine: negative review of symptoms PHYSICAL EXAM: VITALS: Vitals: 05/21/24 1436 BP: 128/73 Pulse: 80 Resp: 16 Temp: 99 F (37.2 C) SpO2: 94% Physical Exam Vitals reviewed. Constitutional: Appearance: Normal appearance. HENT: Head: Normocephalic and atraumatic. Nose: Nose normal. Eyes: Pupils: Pupils are equal, round, and reactive to light. Cardiovascular: Rate and Rhythm: Normal rate. Pulmonary: Effort: Pulmonary effort is normal. Breath sounds: No stridor. Abdominal: Palpations: Abdomen is soft. There is no mass. Tenderness: There is abdominal tenderness. There is no right CVA tenderness, left CVA tenderness, guarding or rebound. Hernia: No hernia is present. Musculoskeletal: General: No swelling or tenderness. Cervical back: Neck supple. Skin: General: Skin is warm and dry. Neurological: General: No focal deficit present. Mental Status: He is alert and oriented to person, place, and time. Psychiatric: Mood and Affect: Mood normal. Behavior: Behavior normal. Thought Content: Thought content normal. Judgment: Judgment normal. LABS: CBC/PT/INR 05/21/2024 2:34 PM WBC 12.3 RBC 3.42 Hgb 7.9 Hct 25.4 MCV 75 RDW 20.0 Plt 299 aPTT 26 INR 1.14 Basic Metabolic Panel 05/21/2024 2:34 PM Na 138 K 4.3 Cl 102 CO2 27 Gap 13 Glu 115 BUN 11 Cr 0.73 Ca 8.2 Arterial Blood Gases None IMAGING (personally reviewed by me): ASSESSMENT/RECOMMENDATIONS: Valencia Brooks is a 83 year old male who is a transfer from [facility] for a concern of intraabdominal abscess. Patient is s/p lap cholecystectomy on 05/04/2024 with KELVIN drain removed on last Wednesday. He is presenting with abdominal pain started yesterday, denies any nausea or vomiting. Afebrile, and WCC of 12.3. On exam, mild tender abdomen, no rebound tenderness, not peritonitic. Plan: - Admission with EGS to [facility] - start IV abx: Zosyn - Pain control: Tylenol scheduled, PRN Oxycodone and dilaudid - AM labs: CBC, BMP, INR - IR for percutaneous abdominal drain tomorrow - DIET: can have regular diet now, NPO MN - Hold DVT ppx Carlos Umana MD vascular surgery resident Emergency General Surgery Cosigned by Nirav Gong MD at 05/22/2024 7:18 AM EST Associated attestation - Nirav Gong MD - 05/22/2024 7:18 AM EST Images from the original note were not included. Teaching Physician Note: I saw and evaluated the patient. I personally obtained the godinez and critical portions of the history and physical exam. I reviewed the resident's documentation and discussed the patient with the resident. I agree with the resident's medical decision making as documented in the resident's note with the following addenda/exceptions: 83M s/p lap kyleigh (possibly subtotal) at [facility] on 05/04/24 who recently had his KELVIN drain removed in clinic. He developed abdominal pain and was found to have an intraabdominal abscess on CT scan. Transferred to [facility] for IR drainage. Will admit pt to EG, start zosyn for intraabdominal infection and consult IR for drainage. Nirav Gong MD Division of Trauma, Critical Care, Gong, and Emergency General Surgery Department of Surgery [facility] Work Phone: 05-21-2024 History and physical note Images from the original note were not included. [facility] DIVISION OF ACUTE CARE SURGERY EMERGENCY GENERAL SURGERY CONSULTATION, HISTORY & PHYSICAL Reason for consultation: intraabdominal collection s/p lap cholecystectomy on 05/04 HPI: Valencia Brooks 83 year old male with PMH of GERD (gastroesophageal reflux disease) and Hypothyroidism. PSH of Lap cholecystectomy on 05/04/2024. Patient is a transfer from [facility]SH for intraabdominal abscess. Presented with abdominal pain. Denies any vomiting. PMH: There is no previous medical history on file. PSH: There is no previous surgical history on file. MEDS: Refer to medication list ALL: Not on File FH: No family history on file. SH: Social History Socioeconomic History Marital status: Review Of Systems: Skin: negative Eyes: negative review of symptoms Ears/Nose/Throat: negative Respiratory: negative symptoms (no cough, hemoptysis, SOB, CAMPUZANO, PND, wheezing) Cardiovascular: negative symptoms (No CP/Pressure/Tightness, palpitations, orthopnea, PND, SOB, CAMPUZANO, edema, WYATT or vision change) Gastrointestinal: negative symptoms (no anorexia, n/v, indigestion, or diarrhea) Positive for abdominal pain Genitourinary: no urinary symptoms Neurologic: negative symptoms (no syncope, seizures, weakness, gait problems, numbness, burning pain, tremors, or memory loss) negative (no arthritic pain, no joint swelling, no muscle weakness) Psychiatric: negative (no sleep disturbance, anxiety, memory loss, disorientation, inattention, feelings of depression) Hematologic/Lymphatic/Immunologi c: negative (no anemia, bleeding, bruising) Endocrine: negative review of symptoms PHYSICAL EXAM: VITALS: Vitals: 05/21/24 1436 BP: 128/73 Pulse: 80 Resp: 16 Temp: 99 F (37.2 C) SpO2: 94% Physical Exam Vitals reviewed. Constitutional: Appearance: Normal appearance. HENT: Head: Normocephalic and atraumatic. Nose: Nose normal. Eyes: Pupils: Pupils are equal, round, and reactive to light. Cardiovascular: Rate and Rhythm: Normal rate. Pulmonary: Effort: Pulmonary effort is normal. Breath sounds: No stridor. Abdominal: Palpations: Abdomen is soft. There is no mass. Tenderness: There is abdominal tenderness. There is no right CVA tenderness, left CVA tenderness, guarding or rebound. Hernia: No hernia is present. Musculoskeletal: General: No swelling or tenderness. Cervical back: Neck supple. Skin: General: Skin is warm and dry. Neurological: General: No focal deficit present. Mental Status: He is alert and oriented to person, place, and time. Psychiatric: Mood and Affect: Mood normal. Behavior: Behavior normal. Thought Content: Thought content normal. Judgment: Judgment normal. LABS: CBC/PT/INR 05/21/2024 2:34 PM WBC 12.3 RBC 3.42 Hgb 7.9 Hct 25.4 MCV 75 RDW 20.0 Plt 299 aPTT 26 INR 1.14 Basic Metabolic Panel 05/21/2024 2:34 PM Na 138 K 4.3 Cl 102 CO2 27 Gap 13 Glu 115 BUN 11 Cr 0.73 Ca 8.2 Arterial Blood Gases None IMAGING (personally reviewed by me): ASSESSMENT/RECOMMENDATIONS: Valencia Brooks is a 83 year old male who is a transfer from [facility] for a concern of intraabdominal abscess. Patient is s/p lap cholecystectomy on 05/04/2024 with KELVIN drain removed on last Wednesday. He is presenting with abdominal pain started yesterday, denies any nausea or vomiting. Afebrile, and WCC of 12.3. On exam, mild tender abdomen, no rebound tenderness, not peritonitic. Plan: - Admission with EGS to [facility] - start IV abx: Zosyn - Pain control: Tylenol scheduled, PRN Oxycodone and dilaudid - AM labs: CBC, BMP, INR - IR for percutaneous abdominal drain tomorrow - DIET: can have regular diet now, NPO MN - Hold DVT ppx Carlos Umana MD vascular surgery resident Emergency General Surgery Cosigned by Nirav Gong MD at 05/22/2024 7:18 AM EST Associated attestation - Nirav Gong MD - 05/22/2024 7:18 AM EST Images from the original note were not included. Teaching Physician Note: I saw and evaluated the patient. I personally obtained the godinez and critical portions of the history and physical exam. I reviewed the resident's documentation and discussed the patient with the resident. I agree with the resident's medical decision making as documented in the resident's note with the following addenda/exceptions: 83M s/p lap kyleigh (possibly subtotal) at [facility] on 05/04/24 who recently had his KELVIN drain removed in clinic. He developed abdominal pain and was found to have an intraabdominal abscess on CT scan. Transferred to [facility] for IR drainage. Will admit pt to EGS, start zosyn for intraabdominal infection and consult IR for drainage. Nirav Gong MD Division of Trauma, Critical Care, Gong, and Emergency General Surgery Department of Surgery [facility] documented in this encounter [facility] 05-21-2024 Physician Emergency department Note Patient underwent a laparoscopic kyleigh May 04 2024 at OSH Transferred here due to abscess + tenderness/ pain RUQ He denies vomiting Last bowel movement 2 days ago Bowel sounds active He denies fever. Temp here 99 F Ajay Foy MD ATTENDING NOTE I saw and evaluated the patient. I personally obtained the godinez and critical portions of the history and physical exam. I reviewed the resident's documentation and discussed the patient with the resident. I agree with the resident's medical decision making as documented in the resident's note. Ajay Foy MD [facility] Work Phone: 05-21-2024 Physician Emergency department Note Images from the original note were not included. EMERGENCY DEPARTMENT - VISIT NOTE HISTORY OF PRESENT ILLNESS Chief Complaint Patient presents with CONSULT, NEW GI Pt transferred from outside hospital for surgical consult for abdominal abscess. 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 The history is provided by the Patient. Valencia Brooks is a 83 year old male presenting to the ED for intraabdominal abscess. Patient transferred from [facility] for intraabdominal abscess. Had cholecystectomy performed by Dr. Bass on 05/04/24, had his KELVIN drain removed 4 days ago. Presented to ED for concerns of large intraabdominal abscess, plan to transfer to [facility] for IR intervention. Patient states that his abdominal pain is well controlled at this time. Denies any additional symptoms. Last ate yesterday. Chart review: Seen by PCP on 05/18/24, noted incision sites seem well healed w/o signs of infection ------- PAST HISTORY Pertinent Past History: No past medical history on file. There is no problem list on file for this patient. Pertinent Social History: ----- PHYSICAL EXAM BP 128/73 Temp 99 F (37.2 C) (Oral) Resp 16 SpO2 94% Exam: Constitutional: Nursing triage notes reviewed, Vital signs reviewed, and Alert HENT: No facial abrasions or nasal swelling, no intraoral or lip lacerations or bleeding Eyes: Pupils equal round and reactive to light and Extraocular muscles intact Neck: Supple and No nuchal rigidity Lung: Clear to auscultation and No wheezing Cardiac: Regular rate and rhythm and No murmurs Abdomen: Soft, tender to RUQ, surgical scars appear well healed without associated drainage : No CVAT Back: No midline bony tenderness to thoracic/lumbar/sacral spines Ext: Full ROM all 4 extremities and Normal peripheral perfusion and pulses Neuro: Alert normally oriented Skin: No rash or lesion MEDICAL DECISION MAKING and ED COURSE Nursing triage and assessment notes reviewed and incorporated. Review of External (Non- ED) Notes: see HPI Independent Test Interpretation: see ED course Evaluated by EM attending Ajay Foy Course: ED Course as of 05/21/24 1559 Sun May 21, 2024 1540 Basic Metabolic Panel(!): Glucose 115(!) Sodium 138 Potassium 4.3 Carbon Dioxide 27 Chloride 102 BUN 11 Creatinine 0.73 Calcium 8.2(!) Anion Gap 13 Estimated GFR 91 Personal interpretation: no critical electrolyte abnormalities, renal function at baseline. [JM] 1553 COMPLETE BLOOD COUNT W/DIFF (RAPID RESPONSE LABS)(!): WBC 12.3(!) RBC 3.42(!) Hemoglobin 7.9(!) Hematocrit 25.4(!) MCV 75(!) MCH 23.1(!) MCHC 30.9(!) Platelet 299 RDW-CV% 20.0(!) MPV 8.7 MDW 24(!) Leukocytosis, normocytic anemia. No thrombocytopenia. [JM] ED Course User Index [JM] Sujit Steen, Assessment & Plan: 83-year-old male with a past medical history as noted above presenting today for concerns of postoperative complications. Was evaluated at outside hospital, where he was noted to have possible intra-abdominal abscess. Was transferred to [facility] for evaluation by surgery and central IR intervention. On arrival he was hemodynamically stable. Plan physical exam findings as noted above. Patient was nontoxic appearing, did have some moderate tenderness in the right upper quadrant. However, surgical scars appear well healed with no signs of soft tissue infection or dehiscence. Patient with dose of meropenem administered prior to transfer, did hold on additional antibiotics on arrival. Obtained preoperative labs. And interpreted as seen in ED course. Patient had imaging performed at outside hospital, and disc was provided and images were able to be downloaded by Radiology team. EGS was consulted come and evaluate the patient. As surgery was performed within the last 30 days, patient will be admitted to their service. Report was called, Dr. Gong is the accepting attending. IMPRESSION AND DISPOSITION Clinical Impression Diagnosis Comment Postprocedural intraabdominal abscess (HCC) [T81.43XA, K65.1] Disposition: Admitted to Floor: Surgery Service. Report called to GRACIE Holman, 1541 (05/21/24 1541) The patient has received a medical screening examination and within reasonable clinical confidence the patient was stabilized within the capabilities of the emergency department and requires admission / observation. Counseling: Spoke with the patient and discussed today s findings, in addition to providing specific details for the plan of care and expected course. They were given the opportunity to ask questions. This note was created with the assistance of speech recognition software. Sujit Steen DO Cosigned by Ajay Foy MD at 05/21/2024 6:06 PM EST [employer] 05-21-2024 Telephone encounter Note [facility] Patient: Valencia Brooks Gender: male : 1940 Age: [age] year old [employer] spoke to [facility] ED, spoke to a Dr Fink. Recent Lap Kyleigh at [facility] by Dr Bass on May 04 Drain removed last Wednesday Presenting with progressive pain no fever , near syncope last evening ( describer by ED MD vaso vagal like) CT showing large abscess / Started on Meropenem Cross cover for Dr Bass at [facility] defering to Medicine admit. Not appropriate for floor direct admit Its a surgical complication / with recent surgery and drain removal / deferred to Surgery service for admit , or more appropriate ED to ED eval . [facility] to connect to ED . Rafaela Christine MD [employer] 05-21-2024 Miscellaneous Notes [facility] Patient: Valencia Brooks Gender: male : 1940 Age: [age] year old [employer] [facility] spoke to [facility] ED, spoke to a Dr Fink. Recent Lap Kyleigh at [facility] by Dr Bass on May 04 Drain removed last Wednesday Presenting with progressive pain no fever , near syncope last evening ( describer by ED MD vaso vagal like) CT showing large abscess / Started on Meropenem Cross cover for Dr Bass at [facility] defering to Medicine admit. Not appropriate for floor direct admit Its a surgical complication / with recent surgery and drain removal / deferred to Surgery service for admit , or more appropriate ED to ED eval . [facility] to connect to ED . Rafaela Christine MD documented in this encounter [facility] 05-18-2024 History of Present illness Narrative Images from the original note were not included. Subjective Patient ID: Valencia Brooks is a 83 y.o. male who presents for surgery follow up. Flowsheet Row Documentation from 05/08/2024 in [facility] with Bettye Wagnerman [place] [facility] Information ED, Hospital or Custodial Facility Discharge? Hospital Patient has been contacted within two business days of discharge Yes Diagnosis cholecysitis,gallbladder rmoval Discharge Date 05/07/24 Discharged To: Home Setting Discharge Hospital [facility] Engagement Call Start Time 105 Admission Date 05/04/24 Medications Discharge medications reviewed [...] Appointment As Scheduled. documented in this encounter [facility] 05-07-2024 Note Progress Note-Physic roberth Patient: VALENCIA [...] All Problems Chronic GERD / SNOMED CT [id number] / Confirmed Histories Procedure history: No active procedure history items have been selected or recorded. Social History Social & Psychosocial Habits No Data Available . Physical Examination Airway: Mallampati classification: II (soft palate, fauces, uvula visible). Respiratory: adequate air exchange. Cardiovascular: Regular rhythm. Plan [place] [employer]esthesi[employer] (ASA) physical status classification: Class III, E. Anesthetic Preoperative Plan: Anesthesia General. [facility] Comment on above: Result Comment: Elec tronically [...] criteria ( From PACU to floor ). [facility] Comment on above: Result Comment: Elec tronically Signed By: Troy Mccullough Jr, DO\ez\Date and Time Signed: 05/07/24 22:49 EST 05-07-2024 Evaluation + Plan note Extrac aruna from: Title:Progress/SOAP Note Author:Jamin Hinton MD Date:05/07/24 1. Acute cholecystitis (K81. 0: Acute [...] No glycemic issues Extracted from: Title:Discharge Note Author:Rosi Hinton MD Date:05/07/24 Stable Home As tolerated Prescriptions Cipro [...] trauma clinic 05/17/2024 09:45 AM EST [address] [facility], second floor, [address] [place] [address]- [phone] Additional Instructions: Call to schedule/confirm followup appointment BISHOP TURCIOS [address] [place] [address] Business (1) Additional Instructions: Follow-up with PCP for chronic medical conditions [facility] Drainage Tube Care(CUSTOM) Cholecystitis Minimally Invasive Cholecystectomy, Care After, Jfmc-lz-Plsm Extracted from: Title:Progress/SOAP Note Author:Veronique PLUMMER, Quinn Munguia Date:05/06/24 1. Acute cholecystitis (K81. 0: Acute [...] discussed with Trauma/Emergency General Surgery attending, Dr. Hinton Extracted from: Title:ANES Post-operative Note---General Author: Troy Mccullough Jr, DO Date:05/05/24 Plan Transfer/Discharge: Transfer/Discharge Discharge when meets criteria ( From PACU to floor ). Extracted from: Title:ANES Pre-operative Note 2022 Author:Troy Mccullough Jr, DO Date:05/05/24 Plan [place] [employer] Anesthesiologists (ASA) physical status classification: Class III, E. Anesthetic Preoperative Plan: Anesthesia General. Extracted from: Title:APSO Note Author:Bella LEONARD, Rosi Fox te:05/05/24 1. Acute cholecystitis (K81. 0: [...] Views Extracted from: Title:Admission H & P Author:Rosi Hinton MD Date:05/05/24 83 year old male with acute cholecystitis Plan for OR in the morning No imaging came with patient, will attempt to locate Pain control overnight NPO now Pre-op work up ordered Discussed with patient and son, will still need consented Discharge to home after surgery if tolerating pain well Patient to be admitted to [facility] under inpatient status Ordered: ABO/Rh Basic Metabolic Panel Below the Knee Intermittent Pneumatic Compression Device CBC w/ Auto Diff ECG 12 Lead Adult Height Hepatic Function Panel Notify Provider Vital Signs NPO Diet Peripheral IV Insertion PT PT & PTT Pulse Oximetry Resuscitation Status - Full Strict Intake and Output Up ad Porsha Vital Signs Weight XR Chest 2 Views Addendum by Jamin Hinton MD on May 05, 2024 01:12:52 EST Imipenem given at outside hospital due to reported PCN allergy Will give ancef here until surgery is complete [facility] 01-12-2025 NoteMicrobiology PROCEDURE: Fluid Culture [R1] SOURCE: Fluid BODY SITE: Abdomen COLLECTED DATE/TIME: 05/05/2024 12:10 EST RECEIVED DATE/TIME: 05/05/2024 13:47 EST START DATE/TIME: 05/05/2024 13:47 EST FREE TEXT SOURCE: Gallbladder fluid for culture Bella LEONARD, Rosi Hinton MD, Rosi Chino FINAL REPORTS Final Report [] Verified Date/Time: [...] Locations R1: This test was performed at: [facility], [address] [place] [address], [phone] , ZyzazwKettering Health TroyComment on above:Performed By: #### [id number] #### [facility] [address] [place] [address] [id number] NoteProgress Note-Physician Basic Information 83 yo M s/p subtotal cholecystectomy 05/05/[address] Hinton Subjective No acute events overnight, patient's pain [...] ABDOMINAL: abdomen is appropriately tender, nondistended. Lap kyleigh incisions C/D/I with skin glue overlying. No [...] Lymph Auto: 11.8 % Low (05/07/24 05:33:00) Navajo Auto: 8.8 % (05/07/24 05:33:00) Eos Auto: 0.8 % (05/07/24 05:33:00) Basophil Auto: 0.3 % (05/07/24 05:33:00) Neutro Absolute: 9 E9/L High (05/07/24 05:33:00) Lymph Absolute: 1.3 E9/L (05/07/24 05:33:00) Navajo Absolute: 1 E9/L (05/07/24 05:33:00) Eos Absolute: [...] mg/dL High (05/06/24 21:04:00) POC Device SN: [id number] (05/06/24 21:04:00) POC User ID: [id number] (05/06/24 21:04:00) POC Username: YVETTE HUITRON (05/06/24 [...] 4 hoursprn for breakthro (more content not included)...[facility] TroyComment on above:Result Comment: Electronically Signed By: Bella LEONARD, Rosi Hartley.br\Date and Time Signed: 05/07/2507:10 [id number] NoteDischarge Summary Admission and Discharge Information Admit Date/Time:05/05/2024 14:00 Admitting Physician - Rosi Hinton MD Admitting Diagnoses: Discharge Order Date Discharge [...] trauma clinic 05/17/2024 09:45 AM EST [address] [employer] [facility] 3, second floor, [address] [place] [address]- [phone] Additional Instructions: Call to schedule/confirm followup appointment BISHOP TURCIOS [address] [place] [phone]- Business (1) Additional Instructions: Follow-up with PCP for chronic medical conditions Patient Education [facility] Drainage Tube Care(CUSTOM) Cholecystitis Minimally Invasive Cholecystectomy, Care After, Pfco-wi-KydpHycqkc [facility] on [facility]:Result Comment: Electronically Signed By: Bella LEONARD, Rosi Chino\.br\Date and Time Signed: 05/07/2507:05 [id number] NoteProgress Note-Physician Basic Information 83 yo M s/p subtotal cholecystectomy 05/05/[address] Hinton Subjective No acute events overnight, patient's pain [...] ABDOMINAL: abdomen is appropriately tender, nondistended. Lap kyleigh incisions C/D/I with skin glue overlying. No [...] Lymph Auto: 4 % Low (05/06/24 06:18:00) Navajo Auto: 8.1 % (05/06/24 06:18:00) Eos Auto: 0 % (05/06/24 06:18:00) Basophil Auto: 0.2 % (05/06/24 06:18:00) Neutro Absolute: 17.4 E9/L High (05/06/24 06:18:00) Lymph Absolute: 0.8 E9/L Low (05/06/24 06:18:00) Navajo Absolute: 1.6 E9/L High (05/06/24 06:18:00) Eos [...] mg/dL High (05/06/24 08:25:00) POC Device SN: [id number] (05/06/24 08:25:00) POC User ID: [id number] (05/06/24 08:25:00) POC Username: POC Username (05/06/24 [...] - HLIV - Mainta (more content not included)...[facility] TroyComment on above:Result Comment: Electronically Signed By: Mallorie Piper PA-C\.br\Date and Time Signed: 05/06/24 09:27 EST\.br\Electronically Co-Signed By: Bella LEONARD, Rosi Chino\.br\Date and Time Co-Signed: 05/06/24 16:56 [id number] Hospital Discharge instructions Patient Education 05/06/2024 09:13:28 [facility] Tube [facility](CUSTOM) [place], [place] Marty Benson MD, FACS DISCHARGE INSTRUCTIONS [...] IN CC'S #1 AMAFTERNOONPM #2 AMAFTERNOONPM Written: 01-0205/06/2024 09:13:06 Cholecystitis Cholecystitis Cholecystitis is inflammation of [...] Follow these instructions at home: Medicines Take jrce-ylh-hgvltcq and prescription medicines only as told by [...] provider. Document Revised: 10/14/2021 Document Reviewed: 10/14/2021 [employer] Patient Education 2023 [employer]. 05/06/2024 09:12:59 Minimally Invasive Cholecystectomy, Care After, Bphd-pc-Aypy Minimally Invasive Cholecystectomy, Care After What can [...] Follow these instructions at home: Medicines Take gqyn-fyq-ngsyxql and prescription medicines only as told by [...] cannot use soap and water, use hand book jacket cover machine operator. ?Change your bandage. ?Leave stitches (sutures) or [...] provider. Document Revised: 10/14/2021 Document Reviewed: 10/14/2021 Elsevier Patient Education 2023 [employer]. Follow Up Care 05/04/2024 20:52:17 With:trauma clinic Address: [address] [place] [address] 3, second floor, [address] [place] [address]- [phone] When:05/17/2024 09:45:00 Comments:Call to schedule/confirm followup appointment With:BISHOP TURCIOS Address: [address] [place] [phone]- Business (1) When: Unknown Comments:Follow-up with PCP for chronic medical conditions [facility] 01-11-2025 NotePatient Education - Text [place], [place] Marty Benson MD, FACS DISCHARGE INSTRUCTIONS [...] What are the si (more content not included)...[facility] 05-05-2024 NoteProgress Note-Physician Basic Information 83 year old male previously healthy presents as a direct admit from [facility] with acute cholecystitis. His symptoms have been present for the past day. His symptoms began just before bed theday prior. No known inciting event. He has never had pain like this before. Pain persisted. He scheduled an appointment with PCP earlier today and ultimately had workup done at [place]. He is an active man and walks [...] Lymph Auto: 4.4 % Low (05/05/24 03:55:00) Navajo Auto: 12.7 % (05/05/24 03:55:00) Eos Auto: 0 % (05/05/24 03:55:00) Basophil Auto: 0.2 % (05/05/24 03:55:00) Neutro Absolute: 17.2 E9/L High (05/05/24 03:55:00) Lymph Absolute: 0.9 E9/L Low (05/05/24 03:55:00) Navajo Absolute: 2.6 E9/L High (05/05/24 03:55:00) Eos [...] 03:55:00) Albumin Lvl: 3.6 (more content not included)...[facility] Comment on above:Result Comment: Electronically Signed By: Bella LEONARD, Rosi Chino\.br\Date and Time Signed: 05/05/2507:03 [id number] NoteHistory and Physical Basic Information 83 year old male transferred from [place] with acute cholecystitis Chief Complaint Abdominal pain x24 hours History of Present Illness 83 year old male previously healthy presents as a direct admit from [facility] with acute cholecystitis. His symptoms have been present for the past day. His symptoms began just before bed theday prior. No known inciting event. He has never had pain like this before. Pain persisted. He scheduled an appointment with PCP earlier today and ultimately had workup done at [place]. He is an active man and walks [...] pain well Patient to be admitted to [facility] under inpatient status Ordered: ABO/Rh Basic [...] Will give ancef here until surgery is completeKettering Health TroyComment on above:Result Comment: Electronically Signed By: Bella LEONARD, Rosi Hartley.br\Date and Time Signed: 05/05/2500:13 [id number] History of Present illness Narrative* Tesha Lind, MICHELLE - 05/04/2024 3:30 PM EST Images from [...] ONCE DAILY AT THE SAME TIME EACH [id number] capsule 0 No current facility-administered medications on [...] No follow-ups on file. documented in this encounterOzarks Community [id number] History of Present illness Narrative* ANN-MARIE Perez [...] 1. Actinic keratosis (8) Left Ear, Left Sikh (2), Left Zygomatic Area, Right Malar Cheek, Right Sikh (3) Erythematous scaly papules Patient was counseled [...] limited to risks of scarring, darker or silverware washer pigmentary changes, recurrence, incomplete removal and infection. [...] Cryotherapy, skin lesion - Left Ear, Left Sikh (2), Left Zygomatic Area, Right Malar Cheek, [...] Next Visit: as scheduled documented in this encounterOzarks Community [id number] History of Present illness Narrative* Adan Suarez [...] part of torso Left Medial Mid Back Aurora macule at biopsy site Skin excision Lesion [...] 0.7 x 0.5 cm Previous accession number: [id number] 2. Encounter for removal of sutures Right [...] 14 days for s/r documented in this encounterOzarks Community [id number] History of Present illness Narrative* Adan Suarez [...] other part of torso Right Mid Back Aurora macule at biopsy site Skin excision Lesion [...] 1.2 x 0.8 cm Previous accession number: [id number] Follow up: 14 days for s/r, excision left medial mid back (BCC) documented in this encounterOzarks Community [id number] History of Present illness Narrative* Bishop Turcios [...] ONCE DAILY AT THE SAME TIME EACH [id number] capsule 0 No current facility-administered medications for [...] Do you have a medical power of compliance attorney?: No Objective : BP 124/66 Pulse [...] disease without esophagitis Chronic insomnia Hypothyroidism (acquired) ([facility]) - TSH W/REFLEX TO FT4; Future Primary osteoarthritis of both knees - Comprehensive metabolic panel; Future Spondylosis of cervical region without myelopathy or radiculopathy - CBC and differential Lipoprotein deficiency disorder ([facility]) - Lipid panel; Future No orders of the defined types were placed in this encounter. Follow up in about 6 months (around 07/09/2024) for Routine F/U. Electronically signed by Bishop Turcios MD on January 10, 2024 documented in this encounterOzarks Community [id number] History of Present illness Narrative* ANN-MARIE Perez [...] Parotid Area, Left Preauricular Area, Left Superior [place], Left Temporal Scalp, Left Zygomatic Area, Mid Occipital Scalp, Neck - Posterior, Right Parotid Area, Right Superior [place], Right Sikh, Right Temporal Scalp (2), Right Upper Back, [...] limited to risks of scarring, darker or silverware washer pigmentary changes, recurrence, incomplete removal and infection. [...] Parotid Area, Left Preauricular Area, Left Superior [place], Left Temporal Scalp, Left Zygomatic Area, Mid Occipital Scalp, Neck - Posterior, Right Parotid Area, Right Superior [place], Right Sikh, Right Temporal Scalp (2), Right Upper Back, [...] as scheduled June 2024 documented in this encounterOzarks Community HospitalEvaluation + Plan note Future Appointments Appointment Date:06/07/2024 10:30:00 AM Scheduled Provider: Location:[facility] Appointment Type:Trauma Subsequent Follow Up (FT) Future Scheduled Tests Radiology* CT Abdomen/Pelvis w/ Contrast 05/31/24 [facility] Evaluation + Plan note Future Appointments Appointment Date:06/07/2024 10:30:00 AM Scheduled Provider: Location:[facility]Trauma Clinic Appointment Type:Trauma Subsequent Follow Up (FT) [facility] Evaluation + Plan note Future Appointments Appointment Date:06/21/2024 10:30:00 AM Scheduled Provider: Location:[facility]Trauma Clinic Appointment Type:Trauma Subsequent Follow Up (FT) [facility] Evaluation + Plan note Future Appointments Appointment Date:06/21/2024 10:30:00 AM Scheduled Provider: Location:[facility]Tra[facility] Clinic Appointment Type:Trauma Subsequent Follow Up (FT) Diagnostic Tests Pending * Copper Level 06/20/24 [facility] Evaluation + Plan note Future Appointments Appointment Date:08/02/2024 10:30:00 AM Scheduled Provider: Location:FT.Trauma Clinic Appointment Type:Trauma Subsequent Follow Up (FT) Appointment Date:10/24/2024 02:00:00 PM Scheduled Provider:Li Gaspar MD Location:FT.ONCOLOGY Appointment Type:ONC Office Visit 20 (FT) [facility] Evaluation + Plan note Future Appointments Appointment Date:10/24/2024 02:00:00 PM Scheduled Provider:iL Gaspar MD Location:FT.ONCOLOGY Appointment Type:ONC Office Visit 20 (FT) [facility] Evaluation note* Diagnosis Basal cell carcinoma (BCC) of skin of other part of torso- Primary [facility] Diagnosis Basal cell carcinoma (BCC) of skin of other part of torso- Primary Encounter for removal of sutures [facility]* Diagnosis Actinic keratosis- Primary Encounter for removal of sutures [facility]* Diagnosis Routine general medical examination at health care facility- Primary Routine general medical examination at a health care facility ACP (advance care planning) Other specified counseling Gastroesophageal reflux disease without esophagitis Esophageal reflux Chronic insomnia Insomnia, unspecified Hypothyroidism (acquired) (CMS/HCC) Unspecified hypothyroidism Primary osteoarthritis of both knees 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) Lipoprotein deficiencies [facility] Diagnosis Seborrheic keratosis- Primary Lentigines History of basal cell carcinoma Personal history of other malignant neoplasm of skin Actinic keratosis Neoplasm of unspecified behavior of bone, soft tissue, and skin [facility]* Diagnosis Generalized abdominal pain- Primary Abdominal pain, generalized Chronic idiopathic constipation Unspecified constipation [facility]* Diagnosis Decreased appetite- Primary Anorexia S/P cholecystectomy Other acquired absence of organ Microcytic anemia Unspecified iron deficiency anemia Thrombocytopenia (CMS/HCC) Unspecified thrombocytopenia [facility]* Diagnosis Postprocedural intraabdominal abscess (CMS/HCC)- Primary S/P cholecystectomy Other acquired absence of organ Microcytic anemia Unspecified iron deficiency anemia [facility]* Diagnosis Neoplasm of uncertain behavior of skin- Primary Verruca plantaris Plantar wart Foot pain, left Pain in soft tissues of limb [facility]* Diagnosis Verruca plantaris- Primary Plantar wart Foot pain, left Pain in soft tissues of limb [facility]* Diagnosis Arthralgia of left temporomandibular joint- Primary Neck muscle spasm [facility]* Diagnosis Melanocytic nevus of trunk- Primary Benign neoplasm of skin of trunk, except scrotum Actinic keratosis Lentigines History of basal cell carcinoma Personal history of other malignant neoplasm of skin Neoplasm of unspecified behavior of bone, soft tissue, and skin Seborrheic keratosis [facility]* Diagnosis Verruca plantaris- Primary Plantar wart Foot pain, left Pain in soft tissues of limb [facility]* Diagnosis Cellulitis of right hand- Primary [facility]* Diagnosis Verruca plantaris- Primary Plantar wart Foot pain, left Pain in soft tissues of limb [facility]* Diagnosis Bile duct obstruction- Primary Obstruction of bile duct [facility] Diagnosis Elevated liver enzymes- Primary Other nonspecific abnormal serum enzyme levels Post-procedural fever Cracked nails Sore of lip [facility]* Diagnosis Hospital discharge follow-up- Primary Other follow-up examination [facility]* Diagnosis Postprocedural intraabdominal abscess (HCC)- Primary Postprocedural intraabdominal abscess (HCC) documented in this encounter [facility] Narrative* Bry Zafar DPM - 09/07/2024 4:30 PM EDT Patient: Valencia Brooks : 1940 PCP: Bishop Turcios MD SUBJECTIVE Patient presents today for follow up of skin lesion/neoplasm of unknown origin to the left foot Pt states that previous treatment of acid tx with some improvement Pt rates pain the pain on a 1-10 scale an intensity of 4 Pt presents today for followup. Allergies: Allergies [...] mouth Daily as needed., Disp: , Rfl: ferrous sulfate 325 (65 Fe) MG tablet, [...] Friends and Family: Not on file Attends Buddhism Services: Not on file Active Member of Clubs or Organizations: Not on file Attends Club or Organization Meetings: Not on file Marital Status: Living with partner Intimate Partner Violence: Not on file Housing Stability: Unknown (05/21/2024) Received from [employer] Housing Stability Vital Sign Unable to Pay [...] at the left sub 2nd metatarsal measuring 0.1 cm x 0.1 cm. VASC: Palpable pedal pulsed b/l with [...] given. Application of DSD post procedure. Bry Zafar DPM [facility] Narrative No data available for this section [facility] Hospital Discharge instructions No data available for this section [facility] Progress note No data available for this section [facility] Reason for visit Narrative* Auth/Cert (Routine) Specialty Diagnoses / Procedures Referred By Steffi gonzales Referred To Contact Gastroenterology Diagnoses Bile duct abnormality [K83.9] Procedures ENDOSCOPIC RETROGRADE CHOLANGIOPANCREATOGRAPH Y; DX, W/WO SPECIMEN COLLECTION, BRUSH/WASH (SEP PROC) ENDOSCOPIC RETROGRADE CHOLANGIOPANCREATOGRAPH Y; W/BIOPSY, SINGLE/MULTIPLE ERCP ERCP Rajendra Reyna MD [facility] [place] [address] Phone: tel: fax: [place] [address] Phone: tel: Referral ID Status Reason Start Date Expiration Date Visits Re quested Visits Authorized [id number] 3 [facility] Narrative* Auth/Cert (Routine) Specialty Diagnoses / Procedures Referred By Steffi gonzales Referred To Contact Emergency Medicine Diagnoses Infection following a procedure, organ and space surgical site, initial encounter Peritoneal abscess (HCC) post op abscess Procedures na [facility] [address] [place] [phone] Phone: tel: [facility] [address] [place] [phone] Phone: tel: Referral ID Status Reason Start Date Expiration Date Visits Re quested Visits Authorized [id number] 3 3 [facility] Summary Purpose Family History No Family History [...] for this section No Family History Records Found No data available for this section No data available for this section No data available for this section No data available for this section No data available for this section No data available for this section No [...] No data available for this section No data available for this section No Family History Records FoundNo Family History Records FoundNo Family History Records FoundNo Family History Records Found No data available for this section No Family History Records Found Advance Directives No Advanced Directives Records Found Date Activated Date Inactivated Comments 05/21/2024 4:15 PM 05/23/2024 5:43 PM Question Answer Comments Documentation of decision pr ocess for this code status: Discussed with patient or surrogate. This is the code status chosen by the patient/surrogate. Date Activated Date Inactivated Comments 05/21/2024 4:15 PM 05/23/2024 5:43 PM Question Answer Comments Documentation of decision pr ocess for this code status: Discussed with patient or surrogate. This is the code status chosen by the patient/surrogate. Additional Source Comments (unrecognized sect ion and [...] content) DATE CREATED AUTHOR 05/15/2019 [facility] DATE CREATED AUTHOR AUTHOR'S ORGANIZ ATION 05/10/2024 Shannon Isauro [facility] DATE CREATED AUTHOR AUTHOR'S ORGANIZ ATION 05/19/2024 Shannon Isauro [facility] DATE CREATED AUTHOR AUTHOR'S ORGANIZ ATION 06/22/2024 Shannon Isauro [facility] DATE CREATED AUTHOR AUTHOR'S ORGANIZ ATION 06/23/2024 Shannon Isauro [facility] DATE CREATED AUTHOR AUTHOR'S ORGANIZ ATION 06/30/2024 [facility] DATE CREATED AUTHOR AUTHOR'S ORGANIZ ATION 07/19/2024 [facility] DATE CREATED AUTHOR AUTHOR'S ORGANIZ ATION 08/10/2024 [facility] DATE CREATED AUTHOR AUTHOR'S ORGANIZ ATION 08/19/2024 [facility] DATE CREATED AUTHOR AUTHOR'S ORGANIZ ATION 09/28/2024 [facility] DATE CREATED AUTHOR AUTHOR'S ORGANIZ ATION 10/05/2024 [facility] DATE CREATED AUTHOR AUTHOR'S ORGANIZ ATION 11/07/2024 [facility] s Care Teams (unrecognized sec tion and content) Health Services Information Specialist Relationship Specialty Start Date End Date Bishop Turcios MD [address] [place] [address] PCP - Mk CAMILO 04/26/21 Bishop Turcios MD [address] [place] [address] PCP - General Internal Medicine 09/01/22 Health Services Information Specialist Relationship Specialty Start Date End Date Bishop Turcios MD [address] [place] [address] PCP - Mk CAMILO 04/26/21 Bishop Turcios MD [address] [place] [address] PCP - General Internal Medicine 09/01/22 Health Services Information Specialist Relationship Specialty Start Date End Date Bishop Turcios MD [address] [place] [address] PCP - Mk CAMILO 04/26/21 Bishop Turcios MD [address] [place] [address] PCP - General Internal Medicine 09/01/22 Health Services Information Specialist Relationship Specialty Start Date End Date Bishop Turcios MD [address] [place] [address] PCP - Mk CAMILO 04/26/21 Bishop Turcios MD [address] [place] [address] PCP - General Internal Medicine 09/01/22 Health Services Information Specialist Relationship Specialty Start Date End Date Bishop Turcios MD [address] [place] [address] PCP - Mk CAMILO 04/26/21 Bishop Turcios MD [address] [place] [address] PCP - General Internal Medicine 09/01/22 Health Services Information Specialist Relationship Specialty Start Date End Date Bishop Turcios MD [address] [place] [address] PCP - Mk CAMILO 04/26/21 Bishop Turcios MD [address] [place] [address] PCP - General Internal Medicine 09/01/22 Health Services Information Specialist Relationship Specialty Start Date End Date Bishop Turcios MD [address] [place] [address] PCP - Mk CAMILO 04/26/21 Bishop Turcios MD [address] [place] [address] PCP - General Internal Medicine 09/01/22 Health Services Information Specialist Relationship Specialty Start Date End Date Bishop Turcios MD [address] [place] [address] PCP - Mk MA 04/26/21 Bishop Turcios MD [address] [place] [address] PCP - General Internal Medicine 09/01/22 Health Services Information Specialist Relationship Specialty Start Date End Date Bishop Turcios MD [address] [place] [address] PCP - Mk CAMILO 04/26/21 Bishop Turcios MD [address] [place] [address] PCP - General Internal Medicine 09/01/22 Health Services Information Specialist Relationship Specialty Start Date End Date Bishop Turcios MD [address] [place] [address] PCP - Mk CAMILO 04/26/21 Bishop Turcios MD [address] [place] [address] PCP - General Internal Medicine 09/01/22 Health Services Information Specialist Relationship Specialty Start Date End Date Bishop Turcios MD [address] [place] [address] PCP - Mk MA 04/26/21 Bishop Turcios MD [address] [place] [address] PCP - General Internal Medicine 09/01/22 Health Services Information Specialist Relationship Specialty Start Date End Date Bishop Turcios MD [address] [place] [address] PCP - General Internal Medicine 09/01/22 Health Services Information Specialist Relationship Specialty Start Date End Date Bishop Turcios MD [address] [place] [address] PCP - General Internal Medicine 09/01/22 Health Services Information Specialist Relationship Specialty Start Date End Date Bishop Turcios MD [address] [place] [address] PCP - Mk MA 04/26/21 Bishop Turcios MD [address] [place] [address] PCP - General Internal Medicine 09/01/22 Katie Villegas LPN 07/17/24 Health Services Information Specialist Relationship Specialty Start Date End Date Bishop Turcios MD [address] [place] [address] PCP - Mk CAMILO 04/26/21 Bishop Turcios MD [address] [place] [address] PCP - General Internal Medicine 09/01/22 Katie Villegas LPN 07/17/24 Health Services Information Specialist Relationship Specialty Start Date End Date Bishop Turcios MD [address] [place] [address] PCP - Mk CAMILO 04/26/21 Bishop Turcios MD [address] [place] [address] PCP - General Internal Medicine 09/01/22 Katie Villegas LPN 07/17/24 Health Services Information Specialist Relationship Specialty Start Date End Date Bishop Turcios MD [address] [place] [address] PCP - Mk CAMILO 04/26/21 Bishop Turcios MD [address] [place] [address] PCP - General Internal Medicine 09/01/22 Katie Villegas LPN 07/17/24 Health Services Information Specialist Relationship Specialty Start Date End Date Bishop Turcios MD [address] [place] [address] PCP - Mk CAMILO 04/26/21 Bishop Turcios MD [address] [place] [address] PCP - General Internal Medicine 09/01/22 Katie Villegas LPN 07/17/24 Health Services Information Specialist Relationship Specialty Start Date End Date Bishop Turcios MD [address] [place] [address] PCP - Mk CAMILO 04/26/21 Bishop Turcios MD [address] [place] [address] PCP - General Internal Medicine 09/01/22 Katie Villegas LPN 07/17/24 Health Services Information Specialist Relationship Specialty Start Date End Date Bishop Turcios MD [address] [place] [address] PCP - Mk CAMILO 04/26/21 Bishop Turcios MD [address] [place] [address] PCP - General Internal Medicine 09/01/22 Katie Villegas LPN 07/17/24 Health Services Information Specialist Relationship Specialty Start Date End Date Cristina Graham, stapler coil unitDiploma Medical Assistant 05/24/24 06/22/24 Reason for Visit (unrecogniz ed section and content) Reason Comments Excision Reason Comments Excision Suture / Staple Removal Reason Comments Suture / Staple Removal Reason Comments Medicare Annual Wellness Visit Subsequen t Reason Comments Skin Check Reason [facility] dx: intraabd. Abscess after [facility] 05/26/24 dx: post op abscess advised to continue augmentinPt has already had follow up with surgeon since discharge and has another appt next weekPt still has drain in place Reason Comments Plantar Warts Reason Comments Follow-up Lt lesion check Reason Comments Follow-up Lt lesionncheck Reason Comments Transitional Care Management Care Coordination Medical Record Review Reason Comments Transitional Care Management Hospital follow-up Reason Onset Date Comments Transitional Care Management 05/30/2024 Reason Comments CONSULT, NEW GI Pt transferred from outside hospital for surgical consult for abdominal abscess. Specialty Diagnoses / Procedures Referred By Steffi gonzales Referred To Contact Emergency Medicine Diagnoses Infection following a procedure, organ and space surgical site, initial encounter Peritoneal abscess (HCC) post op abscess Procedures na [facility] [employer] [place] [address] Phone: tel: [facility] [employer] [place] [address] Phone: tel: Referral ID Status Reason Start Date Expiration Date Visits Re quested Visits Authorized [id number] 3 3 PRN Active and Recently Administ ered Medications (unrecognized section and content) Medication Order 09/25/2024 09/26/2024 09/27/2024 Morphine Sulfate (PF) 2 MG/ML injection 2 mg, Intravenous Push, EVERY 15 MIN PRN, 4 doses, Starting on Wed09/27/24 at 1026, Until Wed09/29/24 at 1025, Moderate Pain (pain score 4,5,6), PACU Now 1242 (Given - Provid er: Jordyn Alvarado RN) naloxone (NARCAN) 0.4 MG/ML injection 0.4 mg, Intravenous Push, PRN, Starting on Wed09/27/24 at 1026, Until Discontinued, Respiratory Rate Less Than 8 for adults and less than 12 for Peds or for suspected overdose, PACU Now ondansetron (ZOFRAN) 4 MG/2ML injection 4 mg, Intravenous Push, PACU ONCE PRN, Starting on Wed09/27/24 at 1026, Until Wed09/27/24 at 1625, Nausea, Vomiting, PACU Now sodium chloride 0.9 % injection 3 mL, Intravenous Push, PRN, Starting on Wed09/27/24 at 1026, Until Discontinued, For medication administration and blood draw, PACU Now Scheduled Medication Order 05/21/2024 05/22/2024 05/23/2024 acetaminophen (TYLENOL) tablet 650 mg, Oral, Every 6 hours, First dose on Wed05/21/24 at 1646, Until Discontinued 1650 (Given - Provider: Reyna Gastelum RN)2244 (Given - Provider: Winston Kilpatrick RN) 0617 (Given - Provider: Winston Kilpatrick RN)1000 (Hold/Not Given - Provider: Bozena Quintanilla RN - Reason: NPO)1614 (Given - Provider: Bozena Quintanilla RN)2205 (Given - Provider: Winston Kilpatrick RN) 0405 (Given - Provider: Winston Kilpatrick RN)0954 (Given - Provider: Bozena Quintanilla, LYLE) enoxaparin (LMWH) anti-fxa lab draw Other, ONCE, 1 dose, On Wed05/24/24 at 0100 enoxaparin (LOVENOX) 40 MG/0.4ML injection 40 mg 40 mg, Subcutaneous, 2 TIMES DAILY, First dose on Wed05/22/24 at 2100, Until Discontinued 2007 (Given - Provider: Winston Kilpatrick RN) 0954 (Given - Provider: Bozena Quintanilla, LYLE) levothyroxine (SYNTHROID) tablet 137 mcg 137 mcg, Oral, BEFORE BREAKFAST, First dose on Wed05/22/24 at 1530, Until Discontinued 153 (Hold/Not Given - Provider: Bozena Quintanilla RN - Reason: Not indicated - Comment: timing) 0450 (Given - Provider: Winston Kilpatrick RN) melatonin tablet 3 mg, Oral, AT BEDTIME, First dose on Wed05/22/24 at 2300, Until Discontinued 222 (Given - Provider: Winston Kilpatrick RN) pantoprazole (PROTONIX) tablet 40 mg, Oral, DAILY 30 MIN BEFORE BREAKFAST, First dose on Wed05/23/24 at 0830, Until Discontinued 09 (Given - Provider: Bozena Quintanilla, LYLE) piperacillin-tazobactam (ZOSYN) 3,375 mg in sodium chloride 10 mL IV push (CANCELED) 3,375 mg (3.375 g), Intravenous, EVERY 6 HOURS ANTIBIOTIC, First dose on Wed05/21/24 at 1625, Until Discontinued, at 200 mL/hr 1650 (IV New Bag - Provider: Reyna Gastelum RN)1655 (IV Stop - Provider: Reyna Gastelum RN) piperacillin-tazobactam in D5W (ZOSYN) 3,375 mg in dextrose 50 mL ivpb 3,375 mg (3.375 g), Intravenous, EVERY 6 HOURS ANTIBIOTIC, 19 doses, First dose (after last reorder) on Wed05/21/24 at 2200, Last dose on Wed05/26/24 at 1000, at 100 mL/hr 2244 (IV New Bag - Provider: Winston Kilpatrick RN) 0433 (IV New Bag - Provider: Winston Kilpatrick RN)0932 (IV New Bag - Provider: Bozena Quintanilla, LYLE)1614 (IV New Bag - Provider: Bozena Quintanilla, LYLE)2205 (IV New Bag - Provider: Winston Kilpatrick RN) 0405 (IV New Bag - Provider: Winston Kilpatrick RN)0954 (IV New Bag - Provider: Bozena Quintanilla, LYLE) polyethylene glycol (MIRALAX) 17 g packet 17 g, Oral, DAILY, First dose on Wed05/22/24 at 1530, Until Discontinued 161 (Given - Provider: Bozena Quintanilla, LYLE) 0954 (Given - Provider: Bozena Quintanilla, LYLE) senna (SENOKOT) tablet 8.6 mg, Oral, AT BEDTIME, First dose on Wed05/22/24 at 2200, Until Discontinued 2007 (Given - Provider: Winston Kilpatrick RN) Continuous Medication Order 05/21/2024 05/22/2024 05/23/2024 lactated ringers iv infusion () Intravenous, at 100 mL/hr, Once Continuous, Starting on Wed05/21/24 at 1646, Until Wed05/22/24 at 0315 1716 (IV New Bag - Provider: Reyna Gastelum, LYLE)2001 (IVF Infusing Upon Transfer - Provider: Sandra Graza, LYLE)2041 (Paused - Provider: Kath Franklin RN) PRN Medication Order 05/21/2024 05/22/2024 05/23/2024 bacitracin 500 UNIT/GM ointment Topical, DAILY PRN, Starting on Wed05/22/24 at 1453, Until Wed05/23/24 at 1738, Apply to catheter site with dressing change bisacodyl (MAGIC BULLET) 10 MG suppository 10 mg, Rectal, DAILY PRN, Starting on Wed05/22/24 at 1451, Until Wed05/23/24 at 1738, Constipation oxyCODONE immediate release tablet(Linked Group 1) 2.5 mg, Oral, EVERY 4 HOURS PRN, Starting on Wed05/22/24 at 1238, Until Wed05/23/24 at 1738, Moderate Pain (pain score 4,5,6) oxyCODONE immediate release tablet(Linked Group 1) 5 mg, Oral, EVERY 4 HOURS PRN, Starting on Wed05/22/24 at 1238, Until Wed05/23/24 at 1738, Severe Pain (pain score 7,8,9,10) Linked Groups Order Group 1: oxyCODONE immediate release tabletJump to med 2.5 mg, Oral, EVERY 4 HOURS PRN, Starting on Wed05/22/24 at 1238, Until Wed05/23/24 at 1738, Moderate Pain (pain score 4,5,6) Or oxyCODONE immediate release tabletJump to med 5 mg, Oral, EVERY 4 HOURS PRN, Starting on Wed05/22/24 at 1238, Until Wed05/23/24 at 1738, Severe Pain (pain score 7,8,9,10) FOR RECORDS PERTAINING TO PATIENTS WHO ARE [...] BE BASED ON THE PRIMARY CLINICAL RECORDS. [facility]. provides no warranty or guarantee of the accuracy or completeness of information in this document.
[2024-11-10 00:20] VITALS: BP 130/71; PULSE 68; O2SAT 97
--- NOTE | 2024-11-10 00:27 | PC.NURSE ---
Skin tear to top of right hand, area cleansed with Hibicleanse and steri strips applied, covered with adaptic and wrapped with kerlex.
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
[2024-11-10] MEDS: CEPHALEXIN 500 MG CAPSULE PO (00:55)
[2024-11-10] MEDS: ADACEL DIPH,PERTUSS(ACELL),TET VAC/PF 0.5 ML ADULT SYRINGE IM (00:56)
== END 2024-11-10 01:03 | disposition home or self-care (01) ==
PROVIDERS: Emergency Provider Internal Medicine; Family Provider Physician Assistant; PCP Internal Medicine
DX: S61.411A Laceration without foreign body of right hand, initial encounter (principal); W26.8XXA Contact with other sharp object(s), not elsewhere classified, initial encounter; Z23 Encounter for immunization
CPT/HCPCS: 90471; 90715; 99283